=== PATIENT | female | born 1940 | race Caucasian/White ===

== ENCOUNTER 2023-03-28 11:19 | Outpatient (OUT) | payer OTHER, SELFPAY ==
[2023-03-28 12:59] LABS: Anion Gap 7.5; BUN Creatinine Ratio 18.9; Calcium 9.2 mg/dL (8.5-10.1); Chloride 101 mmol/L (98-107); Estimated GFR (African America 41 (>=60); Estimated GFR (Non-African Ame 34 (>=60); Glucose 196 mg/dL (74-106); Potassium 4.5 mmol/L (3.5-5.1); Sodium 135 mmol/L (136-145)
== END 2023-03-28 11:20 | disposition home or self-care (01) ==
LOC: LAB 11:26
PROVIDERS: PCP Internal Medicine; Visit Provider Internal Medicine
DX: N17.9 Acute kidney failure, unspecified (principal)
CPT/HCPCS: 36415; 80048

== ENCOUNTER 2023-10-29 12:52 | Outpatient (OUT) | payer OTHER, SELFPAY ==
--- NOTE | 2023-10-29 | ECG_ITS ---
[facility] [place] Test Date: 2023-10-29 Pat Name: KRISTA LY Department: Room: - Gender: Female [employer] Supervisor: : 1940 Requested By: SHAIKH MADISON Order Number: [id number] Reading MD: JIHAN GENTILE Measurements Intervals [place] Rate: 84 P: 67 WV: 165 QRS: -46 QRSD: 106 T: 40 QT: 387 QTc: 457 Interpretive Statements SINUS RHYTHM MARKED LEFT AXIS DEVIATION [QRS AXIS < -30] PATTERN CONSISTENT WITH PULMONARY DISEASE Compared to ECG 05/30/2019 13:35:58 Left-axis deviation now present Myocardial infarct finding no longer present Electronically Signed On 10-29-2023 18:47:17 EDT by JIHAN GENTILE
== END 2023-10-29 12:53 | disposition home or self-care (01) ==
LOC: CARD 12:53
PROVIDERS: PCP Internal Medicine; Visit Provider Internal Medicine
DX: I49.9 Cardiac arrhythmia, unspecified (principal); I48.0 Paroxysmal atrial fibrillation
CPT/HCPCS: 93005; 93242

== ENCOUNTER 2023-12-06 09:00 | Outpatient (OUT) | payer OTHER, SELFPAY ==
--- NOTE | 2023-12-06 09:05 | CA_ITS ---
Patient Name: KRISTA LY MR#: [id number] : 1940 Exam Date: 12/06/2023 Ordering Doctor: DR PAUL MARTINEZ M.D. ECHOCARDIOGRAM REPORT PROCEDURE: CA ECHO DOPPLER COMPLETE INDICATIONS: Abnormal EKG COMPARISON: None. DESCRIPTION: COMPLETE ECHOCARDIOGRAM Real-time transthoracic echocardiography with 2D, M-mode, spectral and color flow Doppler performed. QUALITY: Technical quality was good. LEFT VENTRICLE: Normal chamber size. Mild concentric left ventricular hypertrophy. LV EF: Global left ventricular systolic function is normal; visually estimated ejection fraction is 55 to 60%. No obvious wall motion abnormalities. DIASTOLIC: Grade 2, moderate diastolic dysfunction. ATRIAL SEPTUM: Inadequately seen. LEFT ATRIUM: Severe dilatation. RIGHT ATRIUM: Moderate dilatation. RIGHT VENTRICLE: Normal chamber size. Normal right ventricular systolic function. TRICUSPID VALVE: Normal mobility and thickness. No stenosis with moderate regurgitation. Moderate pulmonary hypertension. RVSP 59mmHg MITRAL VALVE: Mildly thickened with normal mobility. No evidence of mitral valve stenosis. There is no mitral annular calcification. Trivial mitral regurgitation. AORTIC VALVE: Normal trileaflet appearance. Thickened aortic valve. Normal leaflet mobility. No evidence of aortic valve stenosis. Trivial aortic regurgitation. AORTIC ROOT: Normal diameter and appearance. PULMONIC VALVE: Normal thickness and mobility. No stenosis. Trivial regurgitation. PERICARDIUM: No evidence of pericardial effusion. IVC: Collapses with inspirations. Mild dilatation measuring 2.4cm. PLEURA: CONCLUSION: 1. Global left ventricular systolic function is normal; visually estimated ejection fraction is 55 to 60% 2. Normal right ventricular size and systolic function 3. Mildly increased left ventricular wall thickness 4. Biatrial enlargement 5. Grade 2, moderate diastolic dysfunction 6. Moderate tricuspid regurgitation 7. Moderately elevated right ventricular systolic pressure; RVSP 59 mmHg Adult Echocardiography Procedure Report Left Ventricle LVEDD (3.7 - 5.6 cm): 5.05 cm LVESD (2.2 - 4.0 cm): 3.75 cm LVIVS thickness (0.6 - 1.2 cm): 1.21 cm LVPW thickness (0.5 - 1.0 cm): 1.16 cm e': 0.08 m/s E - e': 7.83 LVOT Max Gradient: 2.25 mm[Hg] LVOT Area (cm2): 0.75 m/s Peak Velocity (LVOT): 0.75 m/s Mean Velocity (LVOT): 0.56 m/s LVOT Diameter 2.07 cm Left Ventricular Ejection Fraction: 50.24 % Left Atrium LA Volume Index (2D A2C): 61.01 ml/m2 Left Atrium Systolic Dimension: 4.33 cm Mitral Valve MV E to A Ratio: 1.06 Mitral Valve A-Wave Peak Velocity: 0.57 m/s Mitral Valve E-Wave Peak Velocity: 0.60 m/s Right Ventricle RV Internal Diastolic Dimension: 3.26 cm Aorta AO Root Diam: 3.44 cm Ascending Ao Diam: 3.25 cm Aortic Valve AoV Area (Peak Giuseppe): 1.84 cm2, 1.84 cm2 AoV Area (VTI): 1.70 cm2, 1.70 cm2 Peak Velocity(Antegrade Flow): 1.37 m/s Peak Gradient(Antegrade Flow): 7.48 mm[Hg] Mean Velocity(Antegrade Flow): 0.99 m/s Mean Gradient(Antegrade Flow): 4.36 mm[Hg] Velocity Time Integral: 35.99 cm Tricuspid Valve Peak Velocity (Regurgitant Flow): 2.75 m/s, 3.40 m/s, 3.56 m/s Pulmonic Valve Mean Gradient: 1.99 mm[Hg], 2.44 mm[Hg] Mean Velocity: 0.66 m/s, 0.72 m/s Peak Velocity: 1.05 m/s Peak Gradient: 3.80 mm[Hg], 5.09 mm[Hg] Right Atrium Right Atrium Systolic Pressure: 48.78 ml, 48.78 ml Dictated by: Paul Martinez M.D. on 12/06/2023 at 11:09 Approved by: Paul Martinez M.D. on 12/06/2023 at 11:13
== END 2023-12-06 09:01 | disposition home or self-care (01) ==
LOC: CARD 09:01
PROVIDERS: PCP Internal Medicine; Visit Provider Internal Medicine Interventional Cardiology
DX: I47.29 Other ventricular tachycardia (principal); I07.1 Rheumatic tricuspid insufficiency
CPT/HCPCS: 93306

== ENCOUNTER 2023-12-07 07:05 | Outpatient (OUT) | payer OTHER, SELFPAY ==
--- NOTE | 2023-12-07 | PCN_ITS ---
CARDIAC STRESS TEST Requesting Physician: Paul Martinez M.D. Procedure Date: 12/07/2023 INDICATION FOR THE TEST: Ventricular tachycardia/PVCs. Patient presented for the stress test and, at baseline, was noted to have a heart rate of 63 beats per minute and a blood pressure of 110/66 mm/Hg. During the testing, patient could not use treadmill. A medical stress test was performed and Lexiscan was administered. On this, a maximum heart rate of 88 beats per minute was achieved and a blood pressure of 112/58 mm/Hg. At baseline, patient had sinus rhythm and, with infusion, there was no evidence of ischemia noted on EKG; however, PVCs were noted. Post infusion, no evidence of AV block seen and no other arrhythmias were noted. IMPRESSION: 1. No evidence of ischemia noted on EKG with Lexiscan study. 2. Occasional PVCs noted. 3. Perfusion part of the imaging study to be dictated by radiologist separately. JANEL
--- NOTE | 2023-12-07 07:05 | NM_ITS ---
Patient Name: KRISTA LY MR#: [id number] : 1940 Exam Date: 12/07/2023 Ordering Doctor: DR Paul Martinez M.D. RADIOLOGY REPORT PROCEDURE: NM TIBURCIO PERF SPECT REST STR COMPARISON: None. INDICATIONS: ABNORMAL EKG TECHNIQUE: Exam Description: Stress/Rest one day protocol gated SPECT Rest Imagin.2 mCi Tc-99m Cardiolite IV on 12/07/2023 Stress Imaging 30.8 mCi Tc-99m Cardiolite IV on 12/07/2023 Exercise Protocol: 0.4 mg Lexiscan given IV Heart Rate (bpm): Rest: 63 Max: 88 PMHR: 63 Blood Pressure: Rest: 110/66 Max: 112/58 Symptoms: Rest and peak stress ECG findings were pending and the exercise portion of the study was pending per attending physician Dr. DALE . For more details please see separate cardiac stress test report. FINDINGS: QUALITY OF STUDY: PERFUSION DEFECT: LOCATION: Apical anterior. Apical lateral. [place]. SIZE: Medium (3-4 segments). SEVERITY: Moderate. TYPE: Persistent. WALL MOTION: Normal. LV SIZE: Normal. 101 mL. TID / TCD: None; 1.0 LVEF: Normal. Calculated EF 66%. SUMMARY: Myocardial perfusion imaging study has ABNORMAL findings. CONCLUSION: 1. Fixed defect in the apex 2. No reversible ischemia 3. Pending exercise test results Dictated by: Darien Naqvi MD on 12/07/2023 at 12:03 Approved by: Darien Naqvi MD on 12/07/2023 at 12:05
[2023-12-07] MEDS: REGADENOSON 0.4 MG/5 ML SYRINGE IV (08:59)
--- NOTE | 2023-12-07 09:00 | PC.NURSE ---
Nursing Note Cardiac Stress Test Reviewed: Medication, allergies and patient history reviewed. Stress Test: [ x] Patient tolerated stress test well. [x ] Patient unable to tolerate walking on treadmill. Switched to Lexiscan stress test. [x ] No chest pain noted per patient [ ] Chest pain that resolved prior to leaving stress lab. [ ] No dyspnea noted. [x ] Dyspnea that resolved prior to leaving stress lab. [x ] Patient left stress lab asymptomatic and hemodynamically stable. [ ] Patient taken to the Emergency Room due to non-resolving symptoms following stress test. [ ] Patient achieved target heart rate. [x ] Patient unable to achieve target heart rate. [ ] Aminophylline administered as reversal agent to Lexiscan (Regadenoson). [ ] Nitro administered. Nursing Comments: Patient states she has home o2 ordered. Patient is ordered 2 LPM but is using 3LPM on a regular basis especially with exertion. She is short of breath after the administration of the Lexiscan but is back to her baseline prior to leaving the room. She was transported to the cafeteria for breakfast following the test.
== END 2023-12-07 07:06 | disposition home or self-care (01) ==
LOC: NM 07:05
PROVIDERS: PCP Internal Medicine; Visit Provider Internal Medicine Interventional Cardiology
DX: I47.29 Other ventricular tachycardia (principal); R94.31 Abnormal electrocardiogram [ECG] [EKG]
CPT/HCPCS: 78452; 93017; A9500; J2785

== ENCOUNTER 2024-01-15 09:45 | Outpatient (OUT) | payer OTHER, SELFPAY ==
--- OUTSIDE RECORDS SUMMARY | 2024-01-15 10:04 | XMS_ITS | CCD ---
Author Organization [facility] Care Team Providers Care Director Of Financial Planning Name Role Phone ELTAHAWY, EHAB A Admitting Unavailable ELTAHAWY, EHAB A Attending Unavailable REBECCA HIRSCH Referring Unavailable REBECCA HIRSCH Primary Care Unavailable FAWWAD, MARTINEZ H Attending Unavailable FAWWAD, MARTINEZ H Primary Care Unavailable FAWWAD, MARTINEZ H Consulting Unavailable FAWWAD, MARTINEZ H Admitting Unavailable FAWWAD, MARTINEZ H Attending Unavailable FAWWAD, MARTINEZ H Primary Care Unavailable FAWWAD, MARTINEZ H Consulting Unavailable FAWWAD, MARTINEZ H Admitting Unavailable FAWWAD, MARTINEZ H Primary Care Unavailable DR ALDO ALBRIGHT Consulting Unavailable FAWWAD, MARTINEZ H Attending Unavailable FAWWAD, MARTINEZ H Admitting Unavailable FAWWAD, MARTINEZ H Consulting Unavailable FAWWAD, MARTINEZ H Attending Unavailable FAWWAD, MARTINEZ H Admitting Unavailable DR DENICE NAQVI V Consulting Unavailable FAWWAD, MARTINEZ H Primary Care Unavailable FAWWAD, MARTINEZ H Consulting Unavailable FAWWAD, MARTINEZ H Primary Care Unavailable FAWWAD, MARTINEZ H Consulting Unavailable FAWWAD, MARTINEZ H Attending Unavailable FAWWAD, MARTINEZ H Admitting Unavailable FAWWAD, MARTINEZ H Admitting Unavailable FAWWAD, MARTINEZ H Attending Unavailable DR ALDO ALBRIGHT Consulting Unavailable DR REBECCA HIRSCH Primary Care Unavailable FAWWAD, MARTINEZ H Consulting Unavailable FAWWAD, MARTINEZ H Admitting Unavailable FAWWAD, MARTINEZ H Attending Unavailable DR ALDO ALBRIGHT Consulting Unavailable DR REBECCA HIRSCH Primary Care Unavailable FAWWAD, MARTINEZ H Consulting Unavailable FAWWAD, MARTINEZ H Primary Care Unavailable WEST, DR DENICE Campoverde Attending Unavailable WEST, DR DENICE Campoverde Admitting Unavailable FAWWAD, MARTINEZ H Primary Care Unavailable FAWWAD, MARTINEZ H Attending Unavailable FAWWAD, MARTINEZ H Admitting Unavailable WEST, DR DENICE Campoverde Consulting Unavailable FAWWAD, MARTINEZ H Consulting Unavailable FAWWAD, MARTINEZ H Attending Unavailable FAWWAD, MARTINEZ H Admitting Unavailable HIRSCH, DR REBECCA Vo Primary Care Unavailable GEORGIANA DE LA CRUZ Consulting Unavailable FAWWAD, MARTINEZ H Consulting Unavailable FAWWAD, MARTINEZ H Attending Unavailable FAWWAD, MARTINEZ H Admitting Unavailable WEST, DR DENICE Campoverde Consulting Unavailable HIRSCH, DR REBECCA Vo Primary Care Unavailable FAWWAD, MARTINEZ H Consulting Unavailable FAWWAD, MARTINEZ H Attending Unavailable FAWWAD, MARTINEZ H Primary Care Unavailable FAWWAD, MARTINEZ H Admitting Unavailable WEST, DR DENICE Campoverde Consulting Unavailable FAWWAD, MARTINEZ H Consulting Unavailable [place] , [facility] Primary Care Provider Isela ACOSTA [facility] Primary Care Provider Isela ACOSTA [facility] Unavailable BLANCA ROSALES Attending Unavailable [facility], [facility] Referring [facility]available [facility] Primary Care Unavailable KATEY, BO L Attending Unavailable [facility], [facility] Referring Unavailable [facility], [facility] Primary Care Unavailable ANTONIOLLI, BO L Admitting Unavailable ANTONIOLLI, BO L Attending Unavailable [facility] Primary Care Unavailable ANTONIOLLI, BO L Referring Unavailable [facility] Primary Care Unavailable JOHNNA COLLINS Attending Unavailable PAUL MARTINEZ Attending Unavailable DO Susanne Cannon Emergency Provider [phone] MD Isela [facility] Primary Care Provider DO Jose Eduardo Cifuentes Admit Provider [phone] DO Jose Eduardo Cifuentes Attending Provider KILO HINES Referring Unavailable FAWWAD, [facility] Primary Care Unavailable [facility] Referring Unavailable [facility] Primary Care [facility] Referring [facility] Primary Care [facility]available [facility] Referring [facility]available [facility] Primary Care Unavailable [facility] Referring Unavailable [facility] Primary Care Unavailable ALFA GUNTER Attending Unavailable REBECCA HIRSCH Referring Unavailable [facility] Primary Care Unavailable [facility] Primary Care Unavailable ANTHONYADA BERNAL H Attending Unavailable ANTHONYADA H Attending Unavailable ANTHONY, ADA H Referring Unavailable [facility], [facility] Primary Care Unavailable ANTHONYADA BERNAL H Attending Unavailable ANTHONY, ADA H Referring Unavailable [facility] Primary Care Unavailable [facility] Primary Care Unavailable YON FLOOD Attending Unavailable JOEL, DEVORAH Attending Unavailable DEVORAH MALDONADO Referring Unavailable [facility] Primary Care Unavailable [facility] Primary Care Unavailable JOSE EDUARDO HARMAN Attending Unavaila DANIE Levin Admitting Unavailable JOSE EDUARDO HARMAN Attending Unavaila JOSE EDUARDO Lopez Referring [facility]availa ble [facility] Care Unavailable JOSE EDUARDO HARMAN Attending Unavaila JOSE EDUARDO Lopez Referring Unavaila ble [facility] Primary Care Unavailable BO RINCON Referring Unavailable [facility], [facility] Primary Care Unavailable KILO HINES Attending Unavailable [facility], [facility] Referring Unavailable [facility] Primary Care Unavailable KILO HINES Referring Unavailable ALFA GUNTER Attending Unavailable ALFA GUNTER Referring Unavailable NO PCP, NO PCP Primary Care Unavailable [facility] Referring Unavailable [facility] Primary Care [facility]available [facility] Referring Unavailable [facility] Primary Care Unavailable [facility] Primary Care Unavailable ADA GALLAGHER Attending Unavailable STEVEN PEMBERTON Admitting Unavailable ADA GALLAGHER Attending Unavailable ADA GALLAGHER Referring Unavailable [facility] Primary Care Unavailable MAURO PALMER Attending Unavailable MAURO PALMER Referring Unavailable FAWWAD, MARTINEZ Primary Care Unavailable FAWWAD, MARTINEZ Referring Unavailable FAWWAD, MARTINEZ Primary Care Unavailable FAWWAD, MARTINEZ Primary Care Unavailable ROBERT LYN Attending Unavailable ERWIN RING Attending UnavailERWIN Galdamez Referring Unavailabl e FAWWAD, MARTINEZ Primary Care Unavailable FAWWAD, MARTINEZ Referring Unavailable FAWWAD, MARTINEZ Primary Care Unavailable KILO HINES Attending Unavailable FAWWAD, MARTINEZ Referring Unavailable FAWWAD, MARTINEZ Primary Care Unavailable KILO HINES Referring Unavailable FAWWAD, MARTINEZ Primary Care Unavailable Trent Duarte Attending Unavailabl e [place], Martinez Primary Care Unavailable Jose Eduardo Cifuentes Admitting Unavailable Monroe Selby Consulting Unavaila ble ISELA, MARTINEZ Attending Unavailable FAWWAD, MARTINEZ Attending Unavailable FAWWAD, MARTINEZ Attending Unavailable FAWWAD, MARTINEZ Attending Unavailable FAWWAD, MARTINEZ Attending Unavailable FAWWAD, MARTINEZ Attending Unavailable FAWWAD, MARTINEZ Attending Unavailable FAWWAD, MARTINEZ Attending Unavailable MONROE BURGOS Attending Unavailable KILO HINES Referring Unavailable FAWWAD, MARTINEZ Attending Unavailable JYOTI JOHNSON Attending UnavailJYOTI Knox Attending Unavailabl e FAWWAD, MARTINEZ Attending Unavailable Allergies Allergy Classification Reported Allergen(s) Allergy Type Date of Onset Reaction(s) Facility (6 sources) Amino Acids; Translations: [LISINOPRIL] Drug Allergy 0 [facility] (11 sources) Lisinopril Drug Allergy 2 [facility] (5 sources) Lisinopril Propensity to adverse reactions 3 [facility] (1 source) Lisinopril Drug Allergy 4 [facility] Medications Current Medications Medication Drug Class(es) Dates Sig (Normalized) Sig (Original) [id number] 200 actuat albuterol 0.09 mg/actuat metered dose inhaler (1 source) beta2-Adrenergic Agonist Start: 12-26-2023 Albuterol Sulfate Active INHALATION December 26, 2023 12:00am doesnt use on a regular basis alogliptin 12.5 mg oral tablet (5 sources) take 1 tablet by mouth in the morning alogliptin (Nesina) 12.5 MG tablet Take 12.5 mg by mouth in the morning. 0 Active alogliptin 12.5 mg / metFORMIN hydrochloride 1000 mg oral tablet (11 sources) Biguanide take 1 tablet by mouth once daily alogliptin-metFO RMIN 12.5-1,000 mg tablet Take 12.5 mg by mouth daily. 0 Active aspirin 81 mg delayed release oral tablet (17 sources) Platelet Aggregation Inhibitor, Nonsteroidal Anti-inflammatory Drug Start: 12-26-2023 Aspirin (Adult Low Dose Aspirin) 81 mg tablet,delayed release (DR/EC) Active 81 MG PO Daily December 26, 2023 12:00am take 1 tablet by mouth in the mo rning aspirin 81 mg Take 1 tablet (81 mg total) by mouth in the morning. 0 Active atorvastatin 40 mg oral tablet (17 sources) HMG-CoA Reductase Inhibitor Start: 12-26-2023 take 40 mg by mouth once daily Atorvastatin Active 40 MG PO Daily December 26, 2023 12:00am take 1 tablet by mouth in the mo rning atorvastatin (LIPITOR) 80 mg tablet Take 1 tablet (80 mg total) by mouth in the morning. 0 Active take 1 tablet by mouth in the mo rning atorvastatin (Lipitor) 40 MG tablet Take 40 mg by mouth in the morning. 0 Active carvedilol 6.25 mg oral tablet (19 sources) alpha-Adrenergic Terry, beta-Adrenergic Terry Start: 07-04-2023 End: 10-07-2023 take 1 tablet by mouth in the morning carvedilol (Coreg) 6.25 MG tablet Indications: Benign essential HTN (CMS/HCC) Take 1 tablet (6.25 mg) by mouth in the morning and 1 tablet (6.25 mg) in the evening. Take with meals. 180 tablet 0 07/09/2023 10/07/2023 Active Start: 05-10-2023 End: 11-06-2023 take 1 tablet by mouth in the morning carvedilol (Coreg) 12.5 MG tablet Indications: Benign essential HTN (CMS/HCC) Take 1 tablet (12.5 mg) by mouth in the morning and 1 tablet (12.5 mg) in the evening. Take with meals. 180 tablet 1 05/10/2023 07/04/2023 Discontinued take 4 tablets by mo uth in the morning, then take 4 tablets by mouth at bedtime carvedilol (COREG) 3.125 mg tablet Take 4 tablets (12.5 mg total) by mouth in the morning and 4 tablets (12.5 mg total) before bedtime. 0 Active Fluad Quadrivalent syringe (5 sources) Start: 02-20-2023 Fluad Quadriva lent syringe Inject 0.5 mL into the shoulder, thigh, or buttocks 1 (one) time 0 02/20/2023 Active furosemide 40 mg oral tablet (20 sources) Loop Diuretic Start: 12-26-2023 take 1 tablet by mouth once daily Furosemide (Lasix) 40 mg tablet Active 40 MG PO Daily December 26, 2023 12:00am Start: 07-04-2023 End: 10-07-2023 take 1 tablet by mouth in the morning furosemide (Lasix) 20 MG tablet Indications: Stage 3a chronic kidney disease (HCC) (CMS/HCC) Take 1 tablet (20 mg) by mouth in the morning. 90 tablet 0 07/09/2023 10/07/2023 Active Start: 05-29-2023 End: 07-04-2023 take 1 tablet by mouth once daily as needed for edema furosemide (Lasix) 40 MG tablet Indications: Stage 3a chronic kidney disease (HCC) (CMS/HCC) TAKE 1 (ONE) TABLET BY MOUTH DAILY NEEDED FOR LEG EDEMA 90 tablet 0 05/29/2023 07/04/2023 Discontinued Start: 05-30-2022 take 0.5 tablet by m outh once daily furosemide (LASIX) 40 mg tablet Take 0.5 tablets (20 mg total) by mouth daily. 0 05/30/2022 Active glipiZIDE er 5 mg 24 hr extended release oral tablet (1 source) Sulfonylurea Start: 12-26-2023 take 5 mg by mouth once daily Glipizide Active 5 MG PO Daily December 26, 2023 12:00am hydroCHLOROthiazide 25 mg oral tablet (14 sources) Thiazide Diuretic Start: 05-28-2023 End: 07-04-2023 take 1 tablet by mouth once daily hydroCHLOROthiazide (HYDRODiuril) 25 MG tablet Indications: Essential (primary) hypertension (CMS/HCC) , Benign essential hypertension (CMS/HCC) TAKE 1 TABLET BY MOUTH EVERY DAY 90 tablet 0 05/28/2023 07/04/2023 Discontinued (Therapy completed) insulin glargine 100 unt/ml injectable solution (16 sources) Insulin Analog Start: 08-08-2021 inject 0.35 mL by subcutaneous injection in the morning insulin glargine (LANTUS) 100 unit/mL injection Inject 0.35 mL (35 Units total) under the skin in the morning. 0 08/08/2021 Active inject 35 [IU] by jenkins bcutaneous injection once daily insulin glargine (Lantus) 100 UNIT/ML injection Inject 35 Units under the skin 1 (one) time each day 0 Active inject 45 [IU] by jenkins bcutaneous injection once daily insulin glargine (Lantus) 100 UNIT/ML injection Inject 45 Units under the skin 1 (one) time each day 0 Active letrozole 2.5 mg oral tablet (18 sources) Aromatase Inhibitor Start: 12-26-2023 take 2.5 mg by mouth once daily Letrozole Active 2.5 MG PO Daily at 629December 26, 2023 12:00am Start: 08-01-2022 End: 07-27-2023 take 1 tablet by mouth once daily letrozole (FEMARA) 2.5 mg chemo tablet TAKE 1 TABLET BY MOUTH EVERY DAY 90 tablet 3 07/22/2023 Active levothyroxine sodium 0.075 mg oral tablet (17 sources) l-Thyroxine Start: 12-26-2023 take 75 ug by mouth once daily Levothyroxine Active 75 MCG PO Daily at 629December 26, 2023 12:00am take 1 tablet by mouth in the mo rning levothyroxine (SYNTHROID, LEVOTHROID) 50 MCG tablet Take 1 tablet (50 mcg total) by mouth in the morning. 0 Active losartan potassium 25 mg oral tablet (16 sources) Angiotensin 2 Receptor Terry take 1 tablet by mouth every twenty-four hours losartan (COZAAR) 25 mg tablet Take 1 tablet (25 mg total) by mouth daily. 0 Active metFORMIN hydrochloride 1000 mg oral tablet (17 sources) Biguanide Start: 12-26-19 take 1000 mg by mouth twice daily Metformin Active 1000 MG PO Twice daily December 26, 2023 12:00am take 0.5 tablet by m outh in the morning, then take 0.5 tablet by mouth at mealtime metFORMIN (GLUCOPHAGE) 1000 mg tablet Ta ke 0.5 tablets (500 mg total) by mouth in the morning and 0.5 tablets (500 mg total) in the evening. Take with meals. 0 Active metFORMIN (Gluco phage) 1000 MG tablet Take 500 mg by mouth in the morning and 500 mg in the evening. Take with meals. 0 Active take 1 tablet by oneyda th in the morning, then take 1 tablet by mouth at mealtime metFORMIN (GLUCOPHAGE) 1000 mg tablet Take 1 tablet (1,000 mg total) by mouth in the morning and 1 tablet (1,000 mg total) in the evening. Take with meals. 0 Active 24 hr metoprolol succinate 25 mg extended release oral tablet (1 source) beta-Adrenergic Terry Start: 12-26-2023 take 12.5 mg by mouth once daily Metoprolol Succinate Active 12.5 MG PO Daily December 26, 2023 12:00am nitroglycerin 0.4 mg sublingual tablet (5 sources) Nitrate Vasodilator Start: 02-13-2023 nitroglycerin (Nitrostat) 0.[address] 0.4 mg under the tongue every 5 (five) minutes if needed for chest pain 0 02/13/2023 Active pregabalin 150 mg oral capsule (19 sources) Start: 12-26-2023 take 150 mg by mouth twice daily Pregabalin Active 150 MG PO Twice daily December 26, 2023 12:00am Start: 06-04-2023 End: 10-02-2023 take 1 capsule by mouth in the morning pregabalin (Lyrica) 150 MG capsule Indications: Type 2 diabetes mellitus with diabetic neuropathy, unspecified (CMS/HCC) , Type 2 diabetes mellitus with diabetic polyneuropathy, with long-term current use of insulin (CMS/HCC) Take 1 capsule (150 mg) by mouth in the morning and 1 capsule (150 mg) before bedtime. 180 capsule 0 07/04/2023 10/02/2023 Active take 2 capsules by m outh in the morning, then take 2 capsules by mouth at bedtime pregabalin (LYRICA) 75 mg capsule Take 2 capsules (150 mg total) by mouth in the morning and 2 capsules (150 mg total) before bedtime. 0 Active rOPINIRole 5 mg oral tablet (17 sources) Nonergot Dopamine Agonist Start: 12-26-2023 take 5 mg by mouth three times daily Ropinirole Active 5 MG PO Three times daily December 26, 2023 12:00am Start: 06-21-2023 End: 09-19-2023 take 1 tablet by mouth in the morning, then take 1 tablet by mouth in the evening, then take 1 tablet by mouth at bedtime rOPINIRole (Requip) 5 MG tablet Indications: Restless Leg Syndrome Take 1 tablet (5 mg) by mouth in the morning and 1 tablet (5 mg) in the evening and 1 tablet (5 mg) before bedtime. 270 tablet 0 06/21/2023 09/19/2023 Active take 5 mg by mouth t hree times daily rOPINIRole (REQUIP) 3 mg tablet Take 5 mg by mouth 3 (three) times a day. 0 Active Vitamin B Complex (1 source) Start: 12-26-2023 take 1 capsule by mouth once daily Vitamin B Complex Active CAP PO Daily December 26, 2023 12:00am vitamin b6 50 mg oral tablet (1 source) Start: 08-14-2022 take 1 tablet by mouth in the morning pyridoxine, vitamin B6, (B-6) 50 mg tablet Indications: Peripheral polyneuropathy , Vitamin B6 deficiency Take 1 tablet (50 mg total) by mouth in the morning. 60 tablet 0 08/14/2022 Active Completed/Discontinued Medications Medication Drug Class(es) Dates Sig (Normalized) Sig (Original) acetaminophen 325 mg / HYDROcodone bitartrate 5 mg oral tablet (1 source) Opioid Agonist Start: 04-11-2019 End: 12-26-2023 take 1 tablet by mouth every four to six hours Hydrocodone-Aceta minophen ([place]) 5-325 mg Tablet Discontinued 1 TAB PO EVERY 4-6 HOURS 7 3 April 11, 2019 1:00am December 26, 2023 1:00pm heparin (1 source) Unfractionated Heparin, Anti-coagulant Start: 08-08-2023 End: 08-08-2023 heparin, porcine (PF) syringe 500 Units 125 ml sodium chloride 9 mg/ml prefilled syringe (1 source) Start: 08-08-2023 End: 08-08-2023 sodium chloride 0.9 % flush 20 mL Problems Active Problems Problem Classification Problem Date Documented Da te Episodic/Chronic Cancer of breast (20 sources) Malignant neoplasm of unspecified site of unspecified female breast; Translations: [Malignant neoplasm of upper-inner quadrant of right female breast] Onset: 1 Chronic Cardiac dysrhythmias (3 sources) Ventricular bigeminy; Translations: [Other specified cardiac arrhythmias] Onset: 4 12-26-2023 Chronic Chronic kidney disease (19 sources) Chronic kidney disease stage 3A ; Translations: [Stage 3a chronic kidney disease] Onset: 3 07-18-2022 Chronic Chronic obstructive pulmonary disease and bronchiectasis (1 source) Chronic obstructive pulmonary disease, unspecified; Translations: [Chronic obstructive pulmonary disease, unspecified] Onset: 4 Chronic Congestive heart failure; nonhypertensive (10 sources) Chronic diastolic heart failure; Translations: [Chronic diastolic (congestive) heart failure] Onset: 4 07-04-2023 Chronic Coronary atherosclerosis and other heart disease (13 sources) Coronary arteriosclerosis; Translations: [Atherosclerotic heart disease of [place] coronary artery without angina pectoris] Onset: 2 05-10-2023 Chronic Diabetes mellitus with complications (17 sources) Type 2 diabetes mellitus; Translations: [Type 2 diabetes mellitus with diabetic polyneuropathy] Onset: 3 05-10-2023 Chronic Diabetes mellitus without complication (16 sources) Type 2 diabetes mellitus without complications; Translations: [Diabetes mellitus] Onset: 0 Chronic Disorders of lipid metabolism (18 sources) Mixed hyperlipidemia; Translations: [Mixed hyperlipidemia] Onset: 0 03-21-2023 Chronic Essential hypertension (20 sources) Essential (primary) hypertension; Translations: [Benign essential hypertension] Onset: 2 Resolved: 3 Chronic Fluid and electrolyte disorders (1 source) Hypovolemia; Translations: [Hypovolemia] Onset: 4 Episodic Malaise and fatigue (12 sources) Asthenia; Translations: [Weakness] Onset: 3 03-21-2023 Episodic Mycoses (4 sources) Onychomycosis; Translations: [Tinea unguium] Onset: 4 07-04-2023 Episodic Nonspecific chest pain (2 sources) Chest pain, unspecified; Translations: [Chest pain] Onset: 4 Episodic Nutritional deficiencies (20 sources) Vitamin B6 deficiency; Translations: [Pyridoxine deficiency] Onset: 3 08-14-2022 Episodic Other aftercare (1 source) longterm (current) use of insulin; Translations: [long term (current) use of insulin] Onset: 4 Episodic Other aftercare (1 source) Other penitentiary (current) drug therapy; Translations: [Other termination clerk (current) drug therapy] Onset: 4 Episodic Other circulatory disease (1 source) Presence of other vascular implants and grafts; Translations: [Presence of other vascular implants and grafts] Onset: 4 Chronic Other circulatory disease (1 source) Low blood pressure Onset: 4 Episodic Other connective tissue disease (1 source) Myofascial pain; Translations: [Myalgia, other site] 08-03-2023 Episodic Other hereditary and degenerative nervous system conditions (5 sources) Restless legs; Translations: [Restless legs syndrome] Onset: 3 05-10-2023 Chronic Other hereditary and degenerative nervous system conditions (1 source) Isolated cervical dystonia; Translations: [Spasmodic torticollis] 08-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 Other hereditary and degenerative nervous system conditions (1 source) Torsion dystonia; 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-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 Other hereditary and degenerative nervous system conditions (1 source) Essential tremor; Translations: [Essential tremor] 08-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 Other lower respiratory disease (5 sources) Dyspnea; Translations: [Shortness of breath] Onset: 4 06-21-2023 Episodic Other lower respiratory disease (10 sources) Hypoxia; Translations: [Hypoxemia] Onset: 4 06-21-2023 Episodic Other lower respiratory disease (1 source) Other nonspecific abnormal finding of lung field; Translations: [Other nonspecific abnormal finding of lung field] Onset: 4 Episodic Other lower respiratory disease (1 source) Wheezing; Translations: [Wheezing] Onset: 4 Episodic Other lower respiratory disease (1 source) Shortness of breath; Translations: [Shortness of breath] Onset: 4 Episodic Other lower respiratory disease (1 source) Shortness of breath Onset: 4 Episodic Other nervous system disorders (1 source) Ulnar neuropathy; Translations: [Lesion of ulnar nerve, right upper limb] 07-06-2023 Chronic Other nervous system disorders (1 source) Lesion of ulnar nerve, right upper limb; Translations: [Lesion of ulnar nerve, right upper limb] Onset: 4 Chronic Other nervous system disorders (1 source) Paresthesia of skin; Translations: [Paresthesia of skin] Onset: 4 Episodic Other nutritional; endocrine; and metabolic disorders (15 sources) Body mass index 30+ - obesity; Translations: [Obesity, unspecified] Onset: 3 07-18-2022 Chronic Other nutritional; endocrine; and metabolic disorders (5 sources) Morbid obesity; Translations: [Morbid (severe) obesity due to excess calories] Onset: 3 05-10-2023 Chronic Other screening for suspected conditions (not mental disorders or infectious disease) (1 source) Encounter for screening mammogram for malignant neoplasm of breast; Translations: [Encounter for screening mammogram for malignant neoplasm of breast] Onset: 4 Episodic Phlebitis; thrombophlebitis and thromboembolism (4 sources) Phlebitis and thrombophlebitis of superficial vessels of unspecified lower extremity; Translations: [PHLEBITIS AND TP SUP VES UNS LOW EXT] Onset: 2 Episodic Pleurisy; pneumothorax; pulmonary collapse (2 sources) Pleural effusion, not elsewhere classified; Translations: [Pleural effusion, not elsewhere classified] Onset: 4 Episodic Pulmonary heart disease (1 source) Pulmonary hypertension, unspecified; Translations: [Pulmonary hypertension, unspecified] Onset: 4 Chronic Residual codes; unclassified (4 sources) Localized edema; Translations: [LOCALIZED EDEMA] Onset: 2 Episodic Residual codes; unclassified (4 sources) History of colonoscopy; Translations: [Other specified postprocedural states] Onset: 4 07-04-2023 Episodic Residual codes; unclassified (3 sources) Estrogen receptor positive status [ER+]; Translations: [Estrogen receptor positive status (ER+)] Onset: 3 Episodic Residual codes; unclassified (1 source) Acquired absence of right breast and nipple; Translations: [Acquired absence of right breast and nipple] Onset: 4 Episodic Respiratory failure; insufficiency; arrest (adult) (3 sources) [id number] respiratory failure; Translations: [Acute and chronic respiratory failure with hypoxia] Onset: 4 12-26-2023 Chronic Secondary malignancies (16 sources) Secondary malignant neoplasm of axillary lymph nodes; Translations: [Secondary and unspecified malignant neoplasm of axilla and upper limb lymph nodes] Onset: 2 04-05-2023 Chronic Secondary malignancies (3 sources) Secondary and unspecified malignant neoplasm of axilla and upper limb lymph nodes; Translations: [Secondary and unspecified malignant neoplasm of axilla and upper limb lymph nodes] Onset: 3 Chronic Spondylosis; intervertebral disc disorders; other back problems (1 source) Spondylosis without myelopathy or radiculopathy, thoracic region; Translations: [SPONDYLS W/O MYELO-/RADICULOP THOR] Onset: 2 Chronic Sprains and strains (1 source) Strain of knee; Translations: [Strain of unspecified muscle(s) and tendon(s) at lower leg level, unspecified leg, initial encounter] 05-09-2023 Episodic Substance-related disorders (13 sources) Tobacco dependence caused by cigarettes; Translations: [Nicotine dependence, cigarettes, uncomplicated] Onset: 3 03-21-2023 Chronic Superficial injury; contusion (2 sources) Contusion of knee; Translations: [Contusion of unspecified knee, initial encounter] 05-09-2023 Episodic Unclassified (4 sources) Unspecified lump in the right breast, overlapping quadrants; Translations: [UNS LUMP RT BREAST OVRLPNG QUADRNTS] Onset: 1 Unclassified (1 source) 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, estrogen receptor positive (CMS-HCC) [C50.011, Z17.0] Onset: 4 Unclassified (2 sources) Other ventricular tachycardia; Translations: [Other ventricular tachycardia] Onset: 4 Unclassified (1 source) Weakness - Generalized Onset: 4 Unclassified (1 source) Short of Breath Onset: 4 Unclassified (1 source) Port/VAD Care Onset: 4 Unclassified (1 source) New Patient Onset: 4 Varicose veins of lower extremity (1 source) Varicose veins of bilateral lower extremities with pain; Translations: [VARICOSE VNS JOSE L LOW EXTREM W/PAIN] Onset: 2 Episodic Past or Other Problems Problem Classification Problem Date Documented Da te Episodic/Chronic Abdominal hernia (20 sources) Unspecified abdominal hernia with obstruction, without gangrene; Translations: [Ventral, unspecified, hernia with obstruction] Onset: 07-15-2018 07-15-2018 Episodic Cancer of breast (18 sources) History of malignant neoplasm of breast; Translations: [Personal history of malignant neoplasm of breast] Onset: 08-01-2021 02-09-2022 Episodic Cardiac dysrhythmias (7 sources) Intermittent palpitations; Translations: [Palpitations] Onset: 05-10-2023 05-10-2023 Episodic Conditions associated with dizziness or vertigo (1 source) Dizziness and giddiness; Translations: [Dizziness and giddiness] Onset: 08-15-2023 Episodic Heart valve disorders (7 sources) Ventricular bigeminy; Translations: [Other abnormalities of heart beat] Onset: 07-01-2023 07-04-2023 Episodic Mood disorders (9 sources) Mood disorders Onset: 05-10-2023 Resolved: 08-01-2023 05-10-2023 Nonmalignant breast conditions (3 sources) Unspecified lump in the right breast, upper inner quadrant; Translations: [UNS LUMP IN RT BREAST UPR INR QUAD] Onset: 05-04-2021 Episodic Other gastrointestinal disorders (4 sources) Dysphagia, oropharyngeal phase; Translations: [DYSPHAGIA OROPHARYNGEAL PHASE] Onset: 08-22-2021 Episodic Other liver diseases (11 sources) Enzyme level - finding; Translations: [Transaminitis] Onset: 06-16-2022 06-16-2022 Episodic Other lower respiratory disease (1 source) Other forms of dyspnea; Translations: [Other forms of dyspnea] Onset: 08-30-2023 Episodic Other lower respiratory disease (1 source) Hypoxemia; Translations: [Hypoxemia] Onset: 06-21-2023 Episodic Spondylosis; intervertebral disc disorders; other back problems (18 sources) Pain in thoracic spine; Translations: [Cervicalgia] Onset: 02-12-2022 Episodic Unclassified (11 sources) Onset: 07-18-2022 07-18-2022 Unclassified (1 source) Other ventricular tachycardia; Translations: [Other ventricular tachycardia] Onset: 12-03-2023 Urinary tract infections (11 sources) Urinary tract infectious disease; Translations: [Urinary tract infection, site not specified] Onset: 03-21-2023 03-21-2023 Episodic Results Test Name Value Interpretation Reference Range Facility AFB Specimen Processingon AFB Specimen Processing Comment TUBE 2 Direct Inoculation Comment TUBE 2 Negative Performed at: [facility] [place] [id number] Automotive Diagnostic Technician: Gen Kelly PhD, Phone: [phone] PERFORMED BY: [place] [address] PATHOLOGIST SAT ACT INSTRUCTOR ARELY ROSSI M.D. Normal [facility] Comment on above: Performed By: #### Phoenix Khan, BMP #### [address] Aerobic Cultureon 12-29-2023 Aerobic Culture Comment TUBE 2 No Growth 2 Days Comment TUBE 2 No Anaerobes Isolated 3 Days Comment TUBE 2 Gram Stain Result 1+ White Blood Cells No Bacteria Seen No Yeast Like Elements Seen No Fungal Like Elements Seen No Red Blood Cells Seen PERFORMED BY: [place] [address] PATHOLOGIST SAT ACT INSTRUCTOR ARELY ROSSI M.D. Normal [facility] Comment on above: Performed By: #### Phoenix Khan, BMP #### [address] Basic Metabolic Panelon 08-0 Anion gap [Moles/Vol] 10.2 mmol/L Normal 6.0-15.0 [facility] Comment on above: Performed By: #### A DDONUAPLUS #### [facility] [address] [place] [id number] [place] Calcium [Mass/Vol] 8.9 mg/dL Normal 8.6-10.3 [facility] Comment on above: Performed By: #### A DDONUAPLUS #### [facility] [address] [place] [id number] [place] Chloride [Moles/Vol] 96 mmol/L Low 98-107 [facility] Comment on above: Performed By: #### A DDONUAPLUS #### [facility] [address] [place] [address] [place] CO2 [Moles/Vol] 39.7 mmol/L High 21.0-31.0 [facility] Comment on above: Performed By: #### A DDONUAPLUS #### [place] [address] [place] Creatinine [Mass/Vol] 1.56 mg/dL High 0.60-1.20 [facility] Comment on above: Performed By: #### A DDONUAPLUS #### [facility] [address] [place] [address] [place] Creatinine Clr Calc Pharmacy 29.85 Normal [facility] Comment on above: Performed By: #### A DDONUAPLUS #### [place] [id number] [place] GFR/1.73 sq M.predicted MDRD (S/P/Bld) [Vol rate/Area] 33.194 mL/min/{1.73_m2} Normal [facility] Comment on above: Performed By: #### A DDONUAPLUS #### [place] [address] [place] Glucose [Mass/Vol] 124 mg/dL High 70-100 [facility] Comment on above: Result Comment: [place] om Glucose Reference Range is dependent on time and content of last meal. Glucose of more than 200 mg/dL in a nonstressed, ambulatory subject supports the diagnosis of Diabetes Mellitus. ADA recommended reference range Performed By: #### A DDONUAPLUS #### [address] [address] [place] Potassium [Moles/Vol] 3.9 mmol/L Normal 3.5-5.1 [facility] Comment on above: Performed By: #### A DDONUAPLUS #### [address] Sodium [Moles/Vol] 142 mmol/L Normal 136-145 [facility] Comment on above: Performed By: #### A DDONUAPLUS #### [address] Urea nitrogen [Mass/Vol] 34 mg/dL High 7-25 [facility] Comment on above: Performed By: #### A DDONUAPLUS #### [address] Cell Count/Diff, Fluidon Appearance, Fluid Hazy Normal [facility] Comment on above: Order Comment: Comme nt Purple top Body Fluid Source: Thoracentesis Fluid Body Fluid Site: right pleural fluid Result Comment: The reference interval and other method performance specifications have not been established for this body fluid. The test result must be integrated into the clinical context for interpretation. Performed By: #### M G, BMP #### [place] [address] [place] Color, Fluid Yellow Normal [facility] Comment on above: Order Comment: Comme nt Purple top Body Fluid Source: Thoracentesis Fluid Body Fluid Site: right pleural fluid Result Comment: The reference interval and other method performance specifications have not been established for this body fluid. The test result must be integrated into the clinical context for interpretation. Performed By: #### M G, BMP #### [address] Color, Fluid Supernatant Yellow Normal [facility] Comment on above: Order Comment: Comme nt Purple top Body Fluid Source: Thoracentesis Fluid Body Fluid Site: right pleural fluid Result Comment: The reference interval and other method performance specifications have not been established for this body fluid. The test result must be integrated into the clinical context for interpretation. Performed By: #### M G, BMP #### [place] [address] [place] Eosinophils, Fluid 0 /100{WBC} Normal 0-3 [facility] Comment on above: Order Comment: Comme nt Purple top Body Fluid Source: Thoracentesis Fluid Body Fluid Site: right pleural fluid Performed By: #### M G, BMP #### [facility] [address] Lymphocytes, Fluid 58 % Normal [facility] Comment on above: Order Comment: Comme nt Purple top Body Fluid Source: Thoracentesis Fluid Body Fluid Site: right pleural fluid Result Comment: The reference interval and other method performance specifications have not been established for this body fluid. The test result must be integrated into the clinical context for interpretation. Performed By: #### M G, BMP #### [address] Monocytes/Macrophages, Fluid 35 % Normal [facility] Comment on above: Order Comment: Comme nt Purple top Body Fluid Source: Thoracentesis Fluid Body Fluid Site: right pleural fluid Result Comment: The reference interval and other method performance specifications have not been established for this body fluid. The test result must be integrated into the clinical context for interpretation. Performed By: #### M G, BMP #### [address] Neutrophil, Fluid 3 % Normal [facility] Comment on above: Order Comment: Comme nt Purple top Body Fluid Source: Thoracentesis Fluid Body Fluid Site: right pleural fluid Result Comment: The reference interval and other method performance specifications have not been established for this body fluid. The test result must be integrated into the clinical context for interpretation. Performed By: #### M G, BMP #### [facility] [address] Other Mononuclear Cells, Fluid 4 % Normal [facility] Comment on above: Order Comment: Comme nt Purple top Body Fluid Source: Thoracentesis Fluid Body Fluid Site: right pleural fluid Result Comment: MESO THELIAL CELLS The reference interval and other method performance specifications have not been established for this body fluid. The test result must be integrated into the clinical context for interpretation. PERFORMED BY: [place] [address] PATHOLOGIST SAT ACT INSTRUCTOR ARELY ROSSI M.D. Performed By: #### M G, BMP #### [address] RBC, Fluid 1106 Normal [facility] Comment on above: Order Comment: Comme nt Purple top Body Fluid Source: Thoracentesis Fluid Body Fluid Site: right pleural fluid Result Comment: The reference interval and other method performance specifications have not been established for this body fluid. The test result must be integrated into the clinical context for interpretation. Performed By: #### M G, BMP #### [address] TNC, Body Fluid 812 Normal [facility] Comment on above: Order Comment: Comme nt Purple top Body Fluid Source: Thoracentesis Fluid Body Fluid Site: right pleural fluid Result Comment: The reference interval and other method performance specifications have not been established for this body fluid. The test result must be integrated into the clinical context for interpretation. Performed By: #### M G, BMP #### [address] Fungal Smearon 12-29-2023 Fungal Smear Comment TUBE 2 Fungus Smear Results No Fungal Like Elements Seen No Yeast Like Elements Seen PERFORMED BY: [place] [address] PATHOLOGIST SAT ACT INSTRUCTOR ARELY ROSSI M.D. Normal [facility] Comment on above: Performed By: #### M G, BMP #### [address] Glucose, Fluidon 12-29-2023 Glucose, Fluid 204 mg/dL Normal [facility] Comment on above: Order Comment: Tube Number Tube 1 Result Comment: No r eference range established Performed By: #### M G, BMP #### [address] Gram Stainon 12-29-2023 Microscopic observation Gram stain Nom (Unsp spec) Comment TUBE 2 Gram Stain Result 1+ White Blood Cells No Bacteria Seen No Yeast Like Elements Seen No Fungal Like Elements Seen No Red Blood Cells Seen PERFORMED BY: [place] [address] PATHOLOGIST SAT ACT INSTRUCTOR ARELY ROSSI M.D. Normal [facility] Comment on above: Performed By: #### M G, BMP #### [place] [id number] [place] LDH, Fluidon 12-29-2023 LDH, Fluid 115 [IU]/mL Normal [facility] Comment on above: Order Comment: Tube Number Tube 1 Result Comment: No r eference range established Performed By: #### M G, BMP #### [place] [phone] [facility] Magnesiumon 12-29-2023 Magnesium [Mass/Vol] 2.3 mg/dL Normal 1.9-2.7 [facility] Comment on above: Result Comment: PERF ORMED BY: [place] [address] PATHOLOGIST SAT ACT INSTRUCTOR ARELY ROSSI M.D. Performed By: #### A DDONUAPLUS #### [place] [id number] [place] Total Protein, Fluidon 12-28 Total Protein, Fluid 4.1 g/dL Normal [facility] Comment on above: Order Comment: Tube Number Tube 1 Performed By: #### M G, BMP #### [place] [id number] [facility] Triglyceride, Fluidon 2023 Triglyceride, Fluid 23 mg/dL Normal [facility] Comment on above: Order Comment: Tube Number Tube 1 Result Comment: No r eference range established PERFORMED BY: [place] [address] PATHOLOGIST SAT ACT INSTRUCTOR ARELY ROSSI M.D. Performed By: #### M G, BMP #### [place] [id number] [place] XR chest 1V portableon 12-28 XR chest 1V portable [facility] [place] [address] [place] [address] XRay Report Signed Patient: Krista Ly MR#: [id number] : 1940 Acct:[id number] Age/Sex: 83 / F ADM Date: 12/26/23 Loc: 3T Room: [address] [place] [address] Type: ADM IN Attending Dr: Trent Duarte DO Copies to: MD Trent Mcbride DO Ordering Provider: Monroe Selby MD Date of Service: 12/29/23 XR/XR chest 1V portable: s/p thoracentesis; 800 mL removed Plain film chest Single view HISTORY: Status post RIGHT thoracentesis COMPARISON: 12/29/23 FINDINGS: SUPPORT DEVICES: None POSTSURGICAL CHANGES: None HEART: Continued cardiomegaly PULMONARY ALONDRA: Within normal limits MEDIASTINUM: Unremarkable LUNGS AND PLEURA: Near complete resolution of RIGHT pleural effusion. No developing pneumothorax. Mild atelectasis. BONY STRUCTURES: Intact ADDITIONAL FINDINGS None XR/XR chest 1V portable IMPRESSION: Near-complete resolution of RIGHT pleural effusion postthoracentesis. No developing pneumothorax. Impression dictated by: Chay Choi M.D.12/29/2023 4:05 PM Dictation Location: [place] [address] Transcribed By: [facility] 12/29/23 1605 Dictated By: Chay Choi DO 12/29/23 1603 Signed By: 12/29/23 1605 Normal [facility] XR chest 2V*on 12-29-2023 XR chest 2V* [facility] [address] XRay Report Signed Patient: Krista Ly MR#: [id number] : 1940 Acct:[id number] Age/Sex: 83 / F ADM Date: 12/26/23 Loc: 3T Room: [address] [place] [address] Type: ADM IN Attending Dr: Trent Duarte DO Copies to: MD Trent Mcbride DO Ordering Provider: Monroe Selby MD Date of Service: 12/29/23 XR/XR chest 2V*: Reevaluate pleural effusion Plain film chest 2 view HISTORY: Reevaluate pleural effusion on the RIGHT COMPARISON: 12/26/23, CT chest 12/27/23 FINDINGS: SUPPORT DEVICES: None POSTSURGICAL CHANGES: None HEART: Similar cardiomegaly PULMONARY ALONDRA: Improved vascular congestion MEDIASTINUM: Unremarkable LUNGS AND PLEURA: Mildly decreased to moderate RIGHT pleural effusion. No pneumothorax. Atelectasis. BONY STRUCTURES: Intact ADDITIONAL FINDINGS None XR/XR chest 2V* IMPRESSION: Improving moderate RIGHT pleural effusion. Improved vascular congestion. Impression dictated by: Chay Choi M.D.12/29/2023 7:55 AM Dictation Location: [place] [address] Transcribed By: [facility] 12/29/23 075 Dictated By: Chay Choi DO 12/29/23 0749 Signed By: 12/29/23 0755 Normal [facility] Basic Metabolic Panelon 08- Anion gap [Moles/Vol] 8.7 mmol/L Normal 6.0-15.0 [facility] Comment on above: Performed By: #### Phoenix Khan, BMP #### [address] Calcium [Mass/Vol] 8.9 mg/dL Normal 8.6-10.3 [facility] Comment on above: Performed By: #### Phoenix Khan, BMP #### [address] Chloride [Moles/Vol] 97 mmol/L Low 98-107 [facility] Comment on above: Performed By: #### Phoenix hKan, BMP #### [place] [id number] [place] CO2 [Moles/Vol] 40.2 mmol/L High 21.0-31.0 [facility] Comment on above: Performed By: #### Phoenix G, BMP #### [address] Creatinine [Mass/Vol] 1.14 mg/dL Normal 0.60-1.20 [facility] Comment on above: Performed By: #### Phoenix Khan, BMP #### [place] [id number] [place] Creatinine Clr Calc Pharmacy 41.05 Normal [facility] Comment on above: Performed By: #### M G, BMP #### [place] [address] [place] GFR/1.73 sq M.predicted MDRD (S/P/Bld) [Vol rate/Area] 48.363 mL/min/{1.73_m2} Normal [facility] Comment on above: Performed By: #### M G, BMP #### [address] Glucose [Mass/Vol] 89 mg/dL Normal 70-100 [facility] Comment on above: Result Comment: [facility] Glucose Reference Range is dependent on time and content of last meal. Glucose of more than 200 mg/dL in a nonstressed, ambulatory subject supports the diagnosis of Diabetes Mellitus. ADA recommended reference range Performed By: #### M G, BMP #### [address] Potassium [Moles/Vol] 3.9 mmol/L Normal 3.5-5.1 [facility] Comment on above: Performed By: #### Phoenix G, BMP #### [place] [address] [place] Sodium [Moles/Vol] 142 mmol/L Normal 136-145 [facility] Comment on above: Performed By: #### M G, BMP #### [place] [address] [place] Urea nitrogen [Mass/Vol] 34 mg/dL High 7-25 [facility] Comment on above: Performed By: #### M G, BMP #### [place] [address] [place] Glucose Poct Glucometerson 0 12-28-2023 Glucose [Mass/Vol] 179 mg/dL Normal [facility] Comment on above: Result Comment: [facility] Glucose Reference Range is dependent on time and content of last meal. Glucose of more than 200 mg/dL in a nonstressed, ambulatory subject supports the diagnosis of Diabetes Mellitus. PERFORMED BY: [address] [place] [address] PATHOLOGIST SAT ACT INSTRUCTOR ARELY ROSSI M.D. Performed By: #### A DDONUAPLUS #### [address] Glucose [Mass/Vol] 101 mg/dL Normal [facility] Comment on above: Result Comment: [facility] Glucose Reference Range is dependent on time and content of last meal. Glucose of more than 200 mg/dL in a nonstressed, ambulatory subject supports the diagnosis of Diabetes Mellitus. PERFORMED BY: [place] [address] PATHOLOGIST SAT ACT INSTRUCTOR ARELY ROSSI M.D. Performed By: #### A DDONUAPLUS #### [address] Magnesiumon 12-28-2023 Magnesium [Mass/Vol] 2.1 mg/dL Normal 1.9-2.7 [facility] Comment on above: Result Comment: PERF ORMED BY: [place] [address] PATHOLOGIST SAT ACT INSTRUCTOR ARELY ROSSI M.D. Performed By: #### M G, BMP #### [address] Basic Metabolic Panelon 08-0 Anion gap [Moles/Vol] 8.9 mmol/L Normal 6.0-15.0 [facility] Comment on above: Performed By: #### A DDONUAPLUS #### [place] [address] [place] Calcium [Mass/Vol] 9.1 mg/dL Normal 8.6-10.3 [facility] Comment on above: Performed By: #### A DDONUAPLUS #### [place] [address] [place] Chloride [Moles/Vol] 99 mmol/L Normal 98-107 [facility] Comment on above: Performed By: #### A DDONUAPLUS #### [place] [address] [place] CO2 [Moles/Vol] 36.4 mmol/L High 21.0-31.0 [facility] Comment on above: Performed By: #### A DDONUAPLUS #### [address] Creatinine [Mass/Vol] 1.34 mg/dL High 0.60-1.20 [facility] Comment on above: Performed By: #### A DDONUAPLUS #### [place] [address] [place] Creatinine Clr Calc Pharmacy 34.92 Normal [facility] Comment on above: Performed By: #### A DDONUAPLUS #### [place] [address] [place] GFR/1.73 sq M.predicted MDRD (S/P/Bld) [Vol rate/Area] 39.836 mL/min/{1.73_m2} Normal [facility] Comment on above: Performed By: #### A DDONUAPLUS #### [address] Glucose [Mass/Vol] 162 mg/dL High 70-100 [facility] Comment on above: Result Comment: [place] Glucose Reference Range is dependent on time and content of last meal. Glucose of more than 200 mg/dL in a nonstressed, ambulatory subject supports the diagnosis of Diabetes Mellitus. ADA recommended reference range Performed By: #### A DDONUAPLUS #### [place] [address] [place] Potassium [Moles/Vol] 4.3 mmol/L Normal 3.5-5.1 [facility] Comment on above: Performed By: #### A DDONUAPLUS #### [place] [address] [place] Sodium [Moles/Vol] 140 mmol/L Normal 136-145 The [facility] Comment on above: Performed By: #### A DDONUAPLUS #### [place] [address] [place] Urea nitrogen [Mass/Vol] 38 mg/dL High 7-25 [facility] Comment on above: Performed By: #### A DDONUAPLUS #### [facility] [address] [id number] [facility] CT chest w conon 12-27-2023 CT chest w con [facility] Main [place] [id number] Scan Report Signed Patient: Krista Ly MR#: [id number] : 1940 Acct:[id number] Age/Sex: 83 / F ADM Date: 12/26/23 Loc: Room: [address] [place] [address] Type: ADM IN Attending Dr: Roland Garcia DO Copies to: DO Roland Baca DO Ordering Provider: Jose Eduardo Cifuentes DO Date of Service: 12/27/23 CT/CT chest w con: Further characterization of pleural effusions CT CHEST WITH INTRAVENOUS CONTRAST: CLINICAL HISTORY: Follow-up pleural effusion. COMPARISON: Chest 12/26/2023 TECHNIQUE: Spiral images were obtained through the chest following intravenous administration of IV contrast. This CT exam was performed using one or more following dose reduction techniques: Automated exposure control, adjustment of the mA and/or kV according to patient size, or use of iterative reconstruction technique. FINDINGS: Mediastinum:Thoracic curvature demonstrates moderate calcification without aneurysm. Pulmonary trunk appears nondilated. No pericardial effusion or lymphadenopathy. The esophagus is grossly unremarkable. Lungs:Moderate right-sided pleural effusion with associated consolidative changes involving the right lower lobe without abnormal pleural thickening or enhancement. Consolidative changes are also noted involving the right middle lobe. Mild lung scarring is seen. Mild peripheral reticular changes. No pneumothorax or left-sided pleural effusion. No measurable nodule. Abd:No acute findings. Soft tissues/Bones: Soft tissues demonstrate no acute findings. Right mastectomy changes. Osseous structures demonstrate degenerative change. CT/CT chest w con IMPRESSION: Moderate right-sided pleural effusion with associated consolidative changes involving the right lower and middle lobes. Superimposed pneumonia cannot be excluded. Impression dictated by: Malia Alexander Jr.OJulieta12/27/2023 12:50 PM Dictation Location: [place] [address] Transcribed By: [facility] 12/27/23 1250 Dictated By: Keyshawn Gill Jr, DO 12/27/23 1248 Signed By: 12/27/23 1250 Normal [facility] Complete Blood Count Auto Di ffon 12-27-2023 Basophils (Bld) [#/Vol] 0.0 10*3/uL Normal 0.0-0.2 [facility] Comment on above: Result Comment: PERF ORMED BY: [place] [address] PATHOLOGIST SAT ACT INSTRUCTOR ARELY ROSSI M.D. Performed By: #### A DDONUAPLUS #### [place] [address] [place] Basophils/100 WBC (Bld) 0.2 % Normal . [facility] Comment on above: Performed By: #### A DDONUAPLUS #### [address] Eosinophils (Bld) [#/Vol] 0.0 10*3/uL Normal 0.0-0.45 [facility] Comment on above: Performed By: #### A DDONUAPLUS #### [place] [address] [place] Eosinophils/100 WBC (Bld) 0.2 % Normal . [facility] Comment on above: Performed By: #### A DDONUAPLUS #### [address] Erythrocyte distribution width (RBC) [Ratio] 18.0 % High 11.9-15.3 [facility] Comment on above: Performed By: #### A DDONUAPLUS #### [address] Hematocrit (Bld) [Volume fraction] 33.8 % Low 34.0-46.4 [facility] Comment on above: Performed By: #### A DDONUAPLUS #### [address] Hemoglobin (Bld) [Mass/Vol] 10.8 g/dL Low 11.8-15.4 [facility] Comment on above: Performed By: #### A DDONUAPLUS #### [facility] [address] Lymphocytes (Bld) [#/Vol] 0.6 10*3/uL Low 1.00-4.8 [facility] Comment on above: Performed By: #### A DDONUAPLUS #### [address] Lymphocytes/100 WBC (Bld) 6.3 % Normal . [facility] Comment on above: Performed By: #### A DDONUAPLUS #### [address] MCH (RBC) [Entitic mass] 28.5 pg Normal 24.7-34.3 [facility] Comment on above: Performed By: #### A DDONUAPLUS #### [address] MCV (RBC) [Entitic vol] 89.0 fL Normal 80-100 [facility] Comment on above: Performed By: #### A DDONUAPLUS #### [address] Mean Corpuscular HGB Conc 32.1 g/dL Normal 32.0-35.0 [facility] Comment on above: Performed By: #### A DDONUAPLUS #### [address] Monocytes (Bld) [#/Vol] 0.6 10*3/uL Normal 0.0-0.8 [facility] Comment on above: Performed By: #### A DDONUAPLUS #### [place] [address] [place] Monocytes/100 WBC (Bld) 5.9 % Normal . [facility] Comment on above: Performed By: #### A DDONUAPLUS #### [address] Neutrophils (Bld) [#/Vol] 8.6 10*3/uL High 1.8-7.7 [facility] Comment on above: Performed By: #### A DDONUAPLUS #### [address] Neutrophils/100 WBC (Bld) 87.4 % Normal . [facility] Comment on above: Performed By: #### A DDONUAPLUS #### [address] NRBC% 0.1 /100{WBC} Normal 0-0.5 [facility] Comment on above: Performed By: #### A DDONUAPLUS #### [address] Platelet mean volume (Bld) [Entitic vol] 8.3 fL Normal 6.3-10.7 [facility] Comment on above: Performed By: #### A DDONUAPLUS #### [address] Platelets (Bld) [#/Vol] 142 10*3/uL Low 150-450 [facility] Comment on above: Performed By: #### A DDONUAPLUS #### [address] RBC (Bld) [#/Vol] 3.80 10*6/uL Normal 3.60-5.00 [facility] Comment on above: Performed By: #### A DDONUAPLUS #### [address] WBC (Bld) [#/Vol] 9.8 10*3/uL Normal 3.8-11.6 [facility] Comment on above: Performed By: #### A DDONUAPLUS #### [address] Glucose Poct Glucometerson 0 12-27-2023 Glucose [Mass/Vol] 192 mg/dL Normal [facility] Comment on above: Result Comment: [place] Glucose Reference Range is dependent on time and content of last meal. Glucose of more than 200 mg/dL in a nonstressed, ambulatory subject supports the diagnosis of Diabetes Mellitus. PERFORMED BY: [address] [address] PATHOLOGIST SAT ACT INSTRUCTOR ARELY ROSSI M.D. Performed By: #### A DDONUAPLUS #### [address] Glucose [Mass/Vol] 73 mg/dL Normal [facility] Comment on above: Result Comment: [place] om Glucose Reference Range is dependent on time and content of last meal. Glucose of more than 200 mg/dL in a nonstressed, ambulatory subject supports the diagnosis of Diabetes Mellitus. PERFORMED BY: [place] [address] PATHOLOGIST SAT ACT INSTRUCTOR ARELY ROSSI M.D. Performed By: #### G LULS #### Point of Care testing , Commemt1 Glu2: Cleaned Meter Normal [facility] Comment on above: Result Comment: PERF ORMED BY: [place] [address] PATHOLOGIST SAT ACT INSTRUCTOR ARELY ROSSI M.D. Performed By: #### G LULS #### Point of Care testing , Glucose [Mass/Vol] 233 mg/dL Normal [facility] Comment on above: Result Comment: [place] om Glucose Reference Range is dependent on time and content of last meal. Glucose of more than 200 mg/dL in a nonstressed, ambulatory subject supports the diagnosis of Diabetes Mellitus. Performed By: #### G LULS #### Point of Care testing , Commemt1 Glu2: Cleaned Meter Normal [facility] Comment on above: Result Comment: PERF ORMED BY: [place] [address] PATHOLOGIST SAT ACT INSTRUCTOR ARELY ROSSI M.D. Performed By: #### G LULS #### Point of Care testing , Glucose [Mass/Vol] 210 mg/dL Normal [facility] Comment on above: Result Comment: [place] om Glucose Reference Range is dependent on time and content of last meal. Glucose of more than 200 mg/dL in a nonstressed, ambulatory subject supports the diagnosis of Diabetes Mellitus. Performed By: #### G LULS #### Point of Care testing , Commemt1 Glu2: Cleaned Meter Normal [facility] Comment on above: Result Comment: PERF ORMED BY: [place] [address] PATHOLOGIST SAT ACT INSTRUCTOR ARELY ROSSI M.D. Performed By: #### G LULS #### Point of Care testing , Glucose [Mass/Vol] 130 mg/dL Normal [facility] Comment on above: Result Comment: [facility] Glucose Reference Range is dependent on time and content of last meal. Glucose of more than 200 mg/dL in a nonstressed, ambulatory subject supports the diagnosis of Diabetes Mellitus. Performed By: #### G LULS #### Point of Care testing , Magnesiumon 12-27-2023 Magnesium [Mass/Vol] 1.9 mg/dL Normal 1.9-2.7 [facility] Comment on above: Result Comment: PERF ORMED BY: [place] [address] PATHOLOGIST SAT ACT INSTRUCTOR ARELY ROSSI M.D. Performed By: #### C K, PT, PTT, BMP, CBC, HS TROP, BNP #### [facility] [address] [place] [address] Activated partial thrombopla stin time (aPTT) in platelet poor plasma by coagulation aOrdered By: Susanne Cannon on 12-26-2023 aPTT Coag (PPP) [Time] 32.1 s 25.1-36.5 [facility] Comment on above: A hematocrit value g reater than 55% may lead to inaccurate results in coagulation testing. Patients having hematocrit values >55% require a special collection tube for coagulation studies. Please contact the laboratory at [phone] for redraw instructions. Automated basophil %Ordered By: Susanne Cannon on 12-26-2023 Basophils/100 WBC (Bld) 0.6 % Normal . [facility] Comment on above: Performed By: #### C K, PT, PTT, BMP, CBC, HS TROP, BNP #### [facility] [address] [id number] [facility] Automated basophil countOrde red By: Susanne Cannon on 12-26-2023 Basophils (Bld) [#/Vol] 0.0 10*3/uL Normal 0.0-0.2 [facility] Comment on above: Result Comment: PERF ORMED BY: [place] [address] PATHOLOGIST SAT ACT INSTRUCTOR ARELY ROSSI M.D. Performed By: #### C K, PT, PTT, BMP, CBC, HS TROP, BNP #### [address] Automated blood monocyte cou ntOrdered By: Susanne Cannon on 12-26-2023 Monocytes (Bld) [#/Vol] 0.3 10*3/uL Normal 0.0-0.8 [facility] Comment on above: Performed By: #### C K, PT, PTT, BMP, CBC, HS TROP, BNP #### [address] Automated eosinophil %Ordere d By: Susanne Cannon on 12-26-2023 Eosinophils/100 WBC (Bld) 1.4 % Normal . [facility] Comment on above: Performed By: #### C K, PT, PTT, BMP, CBC, HS TROP, BNP #### [address] Automated eosinophil countOr dered By: Susanne Cannon on 12-26-2023 Eosinophils (Bld) [#/Vol] 0.1 10*3/uL Normal 0.0-0.45 [facility] Comment on above: Performed By: #### C K, PT, PTT, BMP, CBC, HS TROP, BNP #### [address] Automated monocyte %Ordered By: Susanne Cannon on 12-26-2023 Monocytes/100 WBC (Bld) 3.2 % Normal . [facility] Comment on above: Performed By: #### C K, PT, PTT, BMP, CBC, HS TROP, BNP #### [address] Automated neutrophil %Ordere d By: Susanne Cannon on 12-26-2023 Neutrophils/100 WBC (Bld) 87.2 % Normal . [facility] Comment on above: Performed By: #### C K, PT, PTT, BMP, CBC, HS TROP, BNP #### [address] BNP ser/plasOrdered By: Jose Cannon on 12-26-2023 Natriuretic peptide B (Bld) [Mass/Vol] 210.0 pg/mL High 5-100 [facility] Comment on above: Result Comment: PERF ORMED BY: [place] [address] PATHOLOGIST SAT ACT INSTRUCTOR ARELY ROSSI M.D. Performed By: #### C K, PT, PTT, BMP, CBC, HS TROP, BNP #### [address] Bacteria [Presence] in Urine by AutomatedOrdered By: Susanne Cannon on 12-26-2023 Bacteria Auto Ql (U) None seen [HPF] None Seen [facility] Basic Metabolic Panelon 11-27 Creatinine Clr Calc Pharmacy 38.03 Normal [facility] Comment on above: Result Comment: PERF ORMED BY: [place] [address] PATHOLOGIST SAT ACT INSTRUCTOR ARELY ROSSI M.D. Performed By: #### C K, PT, PTT, BMP, CBC, HS TROP, BNP #### [address] GFR/1.73 sq M.predicted MDRD (S/P/Bld) [Vol rate/Area] 43.721 mL/min/{1.73_m2} Normal [facility] Comment on above: Performed By: #### C K, PT, PTT, BMP, CBC, HS TROP, BNP #### [address] Bilirubin Test strip Ql (U)O rdered By: Susanne Cannon on 12-26-2023 Bilirubin Ql (U) Negative Negative [facility] COVID CepheidOrdered By: Lisa reid Royce on 12-26-2023 SARS-CoV-2 (COVID-19) Ab IA Ql Negative Negative [facility] Comment on above: This is a duplicate Cepheid Xpert Xpress CoV-2/Flu/RSV Plus RNA by RT-PCR result to be used for statistical tracking purpose only. SARS-CoV-2 (COVID-19) RNA YUMIKO+probe Ql (Unsp spec) [facility] COVID-19 / Flu A/B / RSV PCR on 12-26-2023 SARS-CoV-2 (COVID-19) RNA YUMIKO+probe Ql (Unsp spec) COVID-19 Cepheid Result Negative for SARS-CoV-2 RNA by RT-PCR Flu A Cepheid Result Negative for Flu A RNA by RT-PCR Flu B Cepheid Result Negative for Flu B RNA by RT-PCR RSV Cepheid Result Negative for RSV RNA by RT-PCR COVID19 Blank Space -- Reference: Negative COVID19 Blank Space -- Cepheid Disclaimer The Cepheid Xpert Xpress CoV-2/Flu/RSV Plus has Cepheid Disclaimer not been FDA cleared or approved; this test has Cepheid Disclaimer been authorized by FDA under an EUA for use by Cepheid Disclaimer authorized laboratories; this test has been Cepheid Disclaimer authorized only for the simultaneous qualitative Cepheid Disclaimer detection and differentiation of nucleic acids from Cepheid Disclaimer SARS-CoV-2, influenza A, influenza B, and Cepheid Disclaimer respiratory syncytial virus (RSV), and not for any Cepheid Disclaimer other viruses or pathogens; and this test is only Cepheid Disclaimer authorized for the duration of the declaration that Cepheid Disclaimer circumstances exist justifying the authorization of Cepheid Disclaimer emergency use of in vitro diagnostic tests for Cepheid Disclaimer detection and/or diagnosis of COVID-19 under Cepheid Disclaimer Section 564(b)(1) of the Act, 21 U.S.C. 360bbb- Cepheid Disclaimer 3(b)(1), unless the authorization is terminated or Cepheid Disclaimer revoked sooner. PERFORMED BY: [place] [address] PATHOLOGIST SAT ACT INSTRUCTOR ARELY ROSSI M.D. Normal [facility] Comment on above: Performed By: #### G LULS #### Point of Care testing , Calcium [Mass/volume] in Ser um or PlasmaOrdered By: Susanne Cannon on 12-26-2023 Calcium [Mass/Vol] 9.7 mg/dL Normal 8.6-10.3 [facility] Comment on above: Performed By: #### C K, PT, PTT, BMP, CBC, HS TROP, BNP #### [facility] [address] [place] [address] Carbon dioxide, total [Moles /volume] in Serum or PlasmaOrdered By: Susanne Cannon on 12-26-2023 CO2 [Moles/Vol] 38.3 mmol/L High 21.0-31.0 [facility] Comment on above: Performed By: #### C K, PT, PTT, BMP, CBC, HS TROP, BNP #### [facility] [address] [place] [address] Cepheid COVID PCR Negativeon 12-26-2023 SARS-CoV-2 (COVID-19) RNA YUMIKO+probe Ql (Unsp spec) Negative Normal Negative [facility] Comment on above: Result Comment: This is a duplicate Cepheid Xpert Xpress CoV-2/Flu/RSV Plus RNA by RT-PCR result to be used for statistical tracking purpose only. PERFORMED BY: [address] [place] [id number] PATHOLOGIST SAT ACT INSTRUCTOR ARELY ROSSI M.D. Performed By: #### G LULS #### Point of Care testing , Chloride [Moles/volume] in S zoran or PlasmaOrdered By: Susanne Cannon on 12-26-2023 Chloride [Moles/Vol] 100 mmol/L Normal 98-107 [facility] Comment on above: Performed By: #### C K, PT, PTT, BMP, CBC, HS TROP, BNP #### [address] Color of Urine by AutoOrdere d By: Susanne Cannon on 12-26-2023 Color (U) Light-yellow Normal Yellow [facility] Comment on above: Order Comment: Name Collection Type:: Voided Performed By: #### A DDONUAPLUS #### [address] Complete Blood Count Auto Di ffon 12-26-2023 Mean Corpuscular HGB Conc 31.9 g/dL Low 32.0-35.0 [facility] Comment on above: Performed By: #### C K, PT, PTT, BMP, CBC, HS TROP, BNP #### [address] Monocytes/100 WBC (Bld) 17.57 % Normal 0.00-20.00 [facility] Comment on above: Performed By: #### C K, PT, PTT, BMP, CBC, HS TROP, BNP #### [address] NRBC% 0.0 /100{WBC} Normal 0-0.5 [facility] Comment on above: Performed By: #### C K, PT, PTT, BMP, CBC, HS TROP, BNP #### [address] Creatine kinase [Enzymatic a ctivity/volume] in Serum or PlasmaOrdered By: Susanne Cannon on 12-26-2023 CK [Catalytic activity/Vol] 84 U/L Normal 30-223 [facility] Comment on above: Performed By: #### C K, PT, PTT, BMP, CBC, HS TROP, BNP #### [address] Creatinine [Mass/volume] in Serum or PlasmaOrdered By: Susanne Cannon on 12-26-2023 Creatinine [Mass/Vol] 1.24 mg/dL High 0.60-1.20 [facility] Comment on above: Performed By: #### C K, PT, PTT, BMP, CBC, HS TROP, BNP #### [facility] [address] [place] [address] [place] Dipstick and Microscopicon 0 12-26-2023 Bacteria,Urine None Seen Normal None Seen [facility] Comment on above: Order Comment: Name Collection Type:: Voided Performed By: #### A DDONUAPLUS #### [place] [address] [place] Bilirubin,Urine Negative Normal Negative [facility] Comment on above: Order Comment: Name Collection Type:: Voided Performed By: #### A DDONUAPLUS #### [place] [address] [place] Glucose Ql (U) Normal Normal Normal [facility] Comment on above: Order Comment: Name Collection Type:: Voided Performed By: #### A DDONUAPLUS #### [place] [address] [place] Hyaline Casts,Urine None Normal 0-8 [facility] Comment on above: Order Comment: Name Collection Type:: Voided Performed By: #### A DDONUAPLUS #### [place] [address] [place] Mucus,Urine Rare Normal [facility] Comment on above: Order Comment: Name Collection Type:: Voided Result Comment: PERF ORMED BY: [place] [address] PATHOLOGIST SAT ACT INSTRUCTOR ARELY ROSSI M.D. Performed By: #### A DDONUAPLUS #### [place] [address] [place] Nitrite,Urine Negative Normal Negative [facility] Comment on above: Order Comment: Name Collection Type:: Voided Performed By: #### A DDONUAPLUS #### [place] [address] [place] Occult Blood,Urine Negative Normal Negative [facility] Comment on above: Order Comment: Name Collection Type:: Voided Result Comment: PERF ORMED BY: [place] [address] PATHOLOGIST SAT ACT INSTRUCTOR ARELY ROSSI M.D. Performed By: #### A DDONUAPLUS #### [address] Protein,Urine Negative Normal Negative [facility] Comment on above: Order Comment: Name Collection Type:: Voided Performed By: #### A DDONUAPLUS #### [address] RBC,Urine 1-2 Normal 0-4 [facility] Comment on above: Order Comment: Name Collection Type:: Voided Performed By: #### A DDONUAPLUS #### [place] [address] [place] Specificy [place],Urine 1.009 Normal 1.001-1.03 0 [facility] Comment on above: Order Comment: Name Collection Type:: Voided Performed By: #### A DDONUAPLUS #### [place] [address] [place] Squamous Epithelial Cell,Urine 1-2 Normal 0-2 [facility] Comment on above: Order Comment: Name Collection Type:: Voided Performed By: #### A DDONUAPLUS #### [place] [address] [place] Urobilinogen,Urine Normal Normal Normal [facility] Comment on above: Order Comment: Name Collection Type:: Voided Performed By: #### A DDONUAPLUS #### [place] [address] [place] WBC,Urine 3-4 Normal 0-4 [facility] Comment on above: Order Comment: Name Collection Type:: Voided Performed By: #### A DDONUAPLUS #### [address] ECG 12 lead ECGon 07-31-2024 ECG 12 lead [address] [facility] [place] [address] Electrocardiograph Report Signed Patient: Krista Ly MR#: [id number] : 1940 Acct:[id number] Age/Sex: 83 / F ADM Date: 12/26/23 Loc: ER Room: Type: [facility] ER Attending Dr: Ordering Provider: Susanne Cannon DO Date of Service: 12/26/23 ECG/ECG 12 lead ECG: CHEST PAIN Copies to: Test Reason : Blood Pressure : 109/55 mmHG Vent. Rate : 73 BPM Atrial Rate : 73 BPM P-R Int : 164 ms QRS Dur : 92 ms QT Int : 414 ms P-R-T Axes : 48 -27 18 degrees QTcB Int : 456 ms Normal sinus rhythm Anterior infarct , age undetermined Abnormal ECG No previous ECGs available Confirmed by SUSANNE CANNON DO ([id number]) on 12/26/2023 10:50:51 AM Referred By: Electronically Signed By: SUSANNE CANNON DO Transcribed By: MUS Signed By Susanne Cannon DO 1050 Normal [facility] ECH echo transthoracicon ECH echo transthoracic [facility] [place] [address] Echocardiogram Signed Patient: Krista Ly MR#: [id number] : 1940 Acct:[id number] Age/Sex: 83 / F ADM Date: 12/26/23 Loc: Room: [address] [place] [address] Type: ADM IN Attending Dr: Roland Garcia DO Ordering Provider: Jose Eduardo Cifuentes DO Date of Service: 12/26/23 ECH/ECH echo transthoracic: Shortness of Breath/Dyspnea Copies to: Yumiko Ocampo MD, FACC Jose Eduardo Cifuentes DO Height: 62 in Weight: 207 lb Performed By: YUDI Carranza BSA: 1.9 m2 BP: 130/64 mmHg HR: 73 Reason For Study: Shortness of Breath/Dyspnea History: HLD, Breast Cancer, DM, HTN, Mastectomy, Former Smoker, Family history: CAD Interpretation Summary The left ventricular size, thickness and function are normal Ejection Fraction = 60-65%. The left atrium appears mildly dilated. There is mild tricuspid regurgitation. The right ventricular systolic pressure is 62 mmHg. Right ventricular systolic pressure is consistent with severe pulmonary hypertension. The right ventricle is mild to moderately dilated. Trivial pericardial effusion. There is no prior echocardiogram noted for this patient. Procedure/Quality: A two-dimensional transthoracic echocardiogram with color flow and Doppler was performed. The study was technically good in quality. There is no prior echocardiogram noted for this patient. Left Ventricle: The left ventricular size, thickness and function are normal. Ejection Fraction = 60-65%. Left Atrium: The left atrium appears mildly dilated. The atrial septum appears normal. Right Atrium: The right atrium appears normal in size. Right Ventricle: The right ventricle is mild to moderately dilated. Aortic Valve: The aortic valve is trileaflet. Mitral Valve: The mitral valve is mildly sclerotic. There is trace mitral regurgitation. Tricuspid Valve: The tricuspid valve is normal in structure. There is mild tricuspid regurgitation. The right ventricular systolic pressure is 62 mmHg. Right ventricular systolic pressure is consistent with severe pulmonary hypertension. Pulmonic Valve: The pulmonic valve is not well seen, but is grossly normal. Arteries: The aortic root is normal size. Pericardium/Pleura: Trivial pericardial effusion. There is no pleural effusion. IVC/Hepatic Veins: The IVC is normal in size with an inspiratory collapse of greater then 50%, suggesting normal right atrial pressure. Miscellaneous: No thrombus, vegetation or mass is seen. Measurements with Normals IVSd: 1.0 cm (0.7-1.1 cm)LVIDd: 5.2 cm (3.7-5.4 cm) LVPWd: 1.1 cm (0.7-1.1 cm)LVIDs: 3.5 cm (2.3-3.6 cm) LA dimension: 4.7 cm (2.3-4.0 cm)Ao root diam: 3.5 cm(2.0-3.6 cm) asc Aorta Diam: 3.3 cm(2.1-3.4cm) Doppler with Normals RVSP(TR): 62.3 mmHg (18-35mmHg) LV V1 max: 108.8 cm/sec (0.7-1.7m/s)MV E max jere: 92.1 cm/sec(0.8-1.3m/s) MV A max jere: 78.8 cm/sec(0.0-0.0m/s) MV E/A: 1.2 (<1.5) MMode/2D Measurements Calculations RVDd: 3.5 cm RV Base: 3.6 cm FS: 32.6 % Ao root area: TAPSE: 2.6 cm RV Mid: 2.8 cm EDV(Teich): 128.6 ml 9.5 cm2 RV S Jere: RV Length: 5.1 cmESV(Teich): 50.7 ml 23.4 cm/sec EF(Teich): 60.6 % __ LVOT diam: 2.1 cm LVLd ap4: 5.6 cm SV(MOD-sp4): 29.0 ml LAV(MOD-sp4): LVOT area: 3.4 cm2 EDV(MOD-sp4): 48.3 ml 49.2 ml LAV(MOD-sp2): LVLs ap4: 4.5 cm 64.5 ml ESV(MOD-sp4): 20.2 ml EF(MOD-sp4): 58.9 % __ LA A2 area: 20.4 cm2 RA Volume: RA Volume Index: LA A4 area: 18.1 cm2 30.0 ml 15.5 ml/m2 LA length (vol): 5.5 cm LA vol: 57.5 ml LA vol index: 29.6 ml/m2 Doppler Measurements Calculations MV dec time: MV V2 max: E/E' lat: 10.0 MV P1/2t max jere: 0.27 sec 108.6 cm/sec E/E' med: 11.6 111.5 cm/sec MV max PG: MV P1/2t: 62.6 msec 45.0 mmHg MVA(P1/2t): 3.5 cm2 MV V2 mean: MV dec slope: 73.8 cm/sec MV mean P.8 cm/sec2 2.5 mmHg MV V2 VTI: 37.6 cm MVA(VTI): 2.5 cm2 __ Ao V2 max: LV V1 max PG: MR max jere: TV max P.0 mmHg 144.4 cm/sec 4.7 mmHg 334.3 cm/sec Ao max PG: LV V1 mean PG: MR max P.3 mmHg 2.6 mmHg 44.7 mmHg Ao mean PG: LV V1 mean: 4.6 mmHg 75.7 cm/sec Ao V2 mean: LV V1 VTI: 28.0 cm 101.7 cm/sec Ao V2 VTI: 34.9 cm TOMMY(I,D): 2.7 cm2 TOMMY(V,D): 2.6 cm2 __ TR max jere: 378.6 cm/sec TR max P.3 mmHg RAP systole: 5.0 mmHg Transcribed By: SCV Performed At: 12/26/23 1525 Signed By: Yumiko Ocampo MD, [facility] 12/27/23 1621 Normal [facility] Epithelial cells.squamous [# /area] in Urine sediment by Automated countOrdered By: Susanne Cannon on 12-26-2023 Epithelial cells.squamous Auto (Urine sed) [#/Area] 1-2 [HPF] 0-2 [facility] Erythrocyte distribution wid th [Ratio] by Automated countOrdered By: Susanne Cannon on 12-26-2023 Erythrocyte distribution width (RBC) [Ratio] 18.7 % High 11.9-15.3 [facility] Comment on above: Performed By: #### C K, PT, PTT, BMP, CBC, HS TROP, BNP #### [facility] [address] Erythrocytes [#/area] in Uri ne sediment by Automated countOrdered By: Susanne Cannon on 12-26-2023 RBC Auto (Urine sed) [#/Area] 1-2 [HPF] 0-4 [facility] Erythrocytes [#/volume] in B lood by Automated countOrdered By: Susanne Cannon on 12-26-2023 RBC (Bld) [#/Vol] 4.10 10*6/uL Normal 3.60-5.00 [facility] Comment on above: Performed By: #### C K, PT, PTT, BMP, CBC, HS TROP, BNP #### [facility] [address] Glucose Poct Glucometerson 0 12-26-2023 Glucose [Mass/Vol] 398 mg/dL Normal [facility] Comment on above: Result Comment: [place] om Glucose Reference Range is dependent on time and content of last meal. Glucose of more than 200 mg/dL in a nonstressed, ambulatory subject supports the diagnosis of Diabetes Mellitus. PERFORMED BY: [place] [address] PATHOLOGIST SAT ACT INSTRUCTOR ARELY ROSSI M.D. Performed By: #### G MAHAD #### Point of Care testing , Glucose [Mass/volume] in Ser um or PlasmaOrdered By: Susanne Cannon on 12-26-2023 Glucose [Mass/Vol] 91 mg/dL Normal 70-100 [facility] Comment on above: ADA recommended refe rence rangeRandom Glucose Reference Range is dependent on time and content of last meal. Glucose of more than 200 mg/dL in a nonstressed, ambulatory subject supports the diagnosis of Diabetes Mellitus. Result Comment: [place] om Glucose Reference Range is dependent on time and content of last meal. Glucose of more than 200 mg/dL in a nonstressed, ambulatory subject supports the diagnosis of Diabetes Mellitus. ADA recommended reference range Performed By: #### C K, PT, PTT, BMP, CBC, HS TROP, BNP #### [facility] [address] [place] [id number] [facility] Glucose [Mass/volume] in Uri ne by Test stripOrdered By: Susanne Cannon on 12-26-2023 Glucose Test strip (U) [Mass/Vol] Normal mg/dL Normal [facility] Hematocrit [Volume Fraction] of Blood by Automated countOrdered By: Susanne Cannon on 12-26-2023 Hematocrit (Bld) [Volume fraction] 36.4 % Normal 34.0-46.4 [facility] Comment on above: Performed By: #### C K, PT, PTT, BMP, CBC, HS TROP, BNP #### [facility] [address] Hemoglobin Test strip Ql (U) Ordered By: Susanne Royce on 12-26-2023 Hemoglobin Ql (U) Negative Negative [facility] Hemoglobin [Mass/volume] in BloodOrdered By: Susanne Cannon on 12-26-2023 Hemoglobin (Bld) [Mass/Vol] 11.6 g/dL Low 11.8-15.4 [facility] Comment on above: Performed By: #### C K, PT, PTT, BMP, CBC, HS TROP, BNP #### [facility] [address] Hyaline casts [#/area] in Ur ine sediment by Automated countOrdered By: Susanne Cannon on 12-26-2023 Hyaline casts Auto (Urine sed) [#/Area] None [LPF] 0-8 [facility] INR in Platelet poor plasma by Coagulation assayOrdered By: Susanne Cannon on 12-26-2023 INR Coag (PPP) [Relative time] 1.0 {INR} Normal [facility] Comment on above: INR Therapeutic Rang e A) Pre- and Peroperative OAT started two weeks before surgery. NOT HIP SURGERY: 1.5 - 2.5 HIP SURGERY: 2 - 3B) Primary and secondary prevention of venous THROMBOSIS: 2 - 3C) Active venous thrombosis, pulmonary embolismand prevention of recurrent venous thrombosis: 2 - 3D) Prevention of arterial thromboembolismincluding patients with mechanical heart valves: 3 - 4.5 Result Comment: INR Therapeutic Range A) Pre- and Peroperative OAT started two weeks before surgery. NOT HIP SURGERY: 1.5 - 2.5 HIP SURGERY: 2 - 3 B) Primary and secondary prevention of venous THROMBOSIS: 2 - 3 C) Active venous thrombosis, pulmonary embolism and prevention of recurrent venous thrombosis: 2 - 3 D) Prevention of arterial thromboembolism including patients with mechanical heart valves: 3 - 4.5 Performed By: #### C K, PT, PTT, BMP, CBC, HS TROP, BNP #### [facility] [address] Ketones [Presence] in Urine by Test stripOrdered By: Susanne Cannon on 12-26-2023 Ketones Ql (U) Negative Normal Negative [facility] Comment on above: Order Comment: Name Collection Type:: Voided Performed By: #### A DDONUAPLUS #### [facility] [address] [place] [address] [place] Rigoberto 12-26-2023 L Specimen: [id number] Received: 01/01/24 Status: SOUCesar Req Num: [id number] Spec Type: Cytology Subm Dr: Monroe Selby MD Tissues: A PLEURAL FLUID (R) Procedures: HE/2, Gross/Micro L4, WEST, AE1-AE3, CALRETININ, CD68, CK5 6, CK20, CK 7, ER, D2-40, Cyto Prepstain, MOC31, PAX-8, GATA3, PAPSTN Age/ Patient Sex Location Account Attending Physician Krista Ly 83/F [id number] Trent Duarte DO SPEC NUM: [id number] RECD: 01/01/24 STATUS: LAUREN REMisty NUM: [id number] AIDEN: 12/26/[address]: Monroe Selby MD ENTERED: 01/01/[address] [facility] [address]: SPEC TYPE: Cytology DEPT: CNG ENTERED BY: [id number] RECV BY: [id number] ORDERED: HE/2, Gross/Micro L4, WEST, AE1-AE3, CALRETININ, CD68, CK5 6, CK20, CK 7, ER, D2-40, Cyto Prepstain, MOC31, PAX-8, GATA3, PAPSTN ORDERED: HE/2, Gross/Micro L4, WEST, AE1-AE3, CALRETININ, CD68, CK5 6, CK20, CK 7, ER, D2-40, Cyto Prepstain, MOC31, PAX-8, GATA3, PAPSTN Pathological Diagnosis Right pleural effusion: Scattered atypical cells are noted, favor reactive mesothelial cells. Clinical Information 83 yo female H/O Breast Cancer, R Pleural Effusion Gross Description Received unfixed is 800 ml yellow hazy fluid for cytology said to have been obtained as Thoracentesis/Pleural fluid. ThinPrep and cell block preparations are prepared for microscopic examination. (CC/ak) CPT Codes 53261 Specimen: [id number] Received: 01/01/24 Status: LAUREN Ash Num: [id number] Spec Type: Cytology Subm Dr: Monroe Selby MD Tissues: A PLEURAL FLUID (R) Procedures: HE/2, Gross/Micro L4, WEST, AE1-AE3, CALRETININ, CD68, CK5 6, CK20, CK 7, ER, D2-40, Cyto Prepstain, MOC31, PAX-8, GATA3, PAPSTN Patient: Krista Ly [id number] (Continued) Signed (signature on file) Mega Nolasco MD 01/08/24 1638 Normal [facility] Leukocyte esterase [Presence ] in Urine by Test stripOrdered By: Susanne Cannon on 12-26-2023 Leukocyte esterase Test strip Ql (U) 2+ High Negative [facility] Comment on above: Order Comment: Name Collection Type:: Voided Performed By: #### A DDONUAPLUS #### [facility] [address] [place] [address] [place] Leukocytes [#/area] in Urine sediment by Automated countOrdered By: Susanne Cannon on 12-26-2023 WBC Auto (Urine sed) [#/Area] 3-4 [HPF] 0-4 [facility] Leukocytes [#/volume] correc nancy for nucleated erythrocytes in Blood by Automated counOrdered By: Susanne Cannon on 12-26-2023 WBC corrected for nucl RBC Auto (Bld) [#/Vol] 8.0 10*3/uL 3.8-11.6 [facility] Leukocytes [#/volume] in Blo od by Automated countOrdered By: Susanne Cannon on 12-26-2023 WBC (Bld) [#/Vol] 8.0 10*3/uL Normal 3.8-11.6 [facility] Comment on above: Performed By: #### C K, PT, PTT, BMP, CBC, HS TROP, BNP #### [facility] [address] [place] [address] [place] Lymphocytes [#/volume] in Bl ood by Automated countOrdered By: Susanne Cannon on 12-26-2023 Lymphocytes (Bld) [#/Vol] 0.6 10*3/uL Low 1.00-4.8 [facility] Comment on above: Performed By: #### C K, PT, PTT, BMP, CBC, HS TROP, BNP #### [facility] [address] [place] [address] [place] Lymphocytes/100 leukocytes i n Blood by Automated countOrdered By: Susanne Cannon on 12-26-2023 Lymphocytes/100 WBC (Bld) 7.6 % Normal . [facility] Comment on above: Performed By: #### C K, PT, PTT, BMP, CBC, HS TROP, BNP #### [address] MCH [Entitic mass] by Automa nancy countOrdered By: Susanne Cannon on 12-26-2023 MCH (RBC) [Entitic mass] 28.4 pg Normal 24.7-34.3 [facility] Comment on above: Performed By: #### C K, PT, PTT, BMP, CBC, HS TROP, BNP #### [address] MCHC Auto (RBC) [Mass/Vol]Or dered By: Susanne Cannon on 12-26-2023 MCHC (RBC) [Mass/Vol] 31.9 g/dL Low 32.0-35.0 [facility] MCV [Entitic volume] by Auto mated countOrdered By: Susanne Cannon on 12-26-2023 MCV (RBC) [Entitic vol] 88.9 fL Normal 80-100 [facility] Comment on above: Performed By: #### C K, PT, PTT, BMP, CBC, HS TROP, BNP #### [address] Monocyte distribution width [Entitic volume] in Blood by AutomatedOrdered By: Susanne Cannon on 12-26-2023 Monocyte distribution width Auto (Bld) [Entitic vol] 17.57 % 0.00-20.00 [facility] Mucus [Presence] in Urine by AutomatedOrdered By: Susanne Cannon on 12-26-2023 Mucus Auto Ql (U) Rare [LPF] [facility] Neutrophils [#/volume] in Bl ood by Automated countOrdered By: Susanne Cannon on 12-26-2023 Neutrophils (Bld) [#/Vol] 7.0 10*3/uL Normal 1.8-7.7 [facility] Comment on above: Performed By: #### C K, PT, PTT, BMP, CBC, HS TROP, BNP #### [facility] [address] [place] [address] Nitrite Test strip Ql (U)Ord ered By: Susanne Cannon on 12-26-2023 Nitrite Ql (U) Negative Negative [facility] No Panel InformationOrdered By: Susanne Cannon on 12-26-2023 Estimated GFR (CKD-EPI) 43.721 mL/Min [facility] Creatinine Clearance (Chem 38.03 [facility] Nucleated erythrocytes [Pres ence] in Blood by Automated countOrdered By: Susanne Cannon on 12-26-2023 Nucleated RBC Auto Ql (Bld) 0.0 /100{WBC} 0-0.5 [facility] Partial Thromboplastin Timeo n 12-26-2023 aPTT Coag (Bld) [Time] 32.1 s Normal 25.1-36.5 [facility] Comment on above: Result Comment: A he matocrit value greater than 55% may lead to inaccurate results in coagulation testing. Patients having hematocrit values >55% require a special collection tube for coagulation studies. Please contact the laboratory at [phone] for redraw instructions. PERFORMED BY: [place] [address] PATHOLOGIST SAT ACT INSTRUCTOR ARELY ROSSI M.D. Performed By: #### M G, BMP #### [facility] [address] [place] [address] [place] Platelet mean volume [Entiti c volume] in Blood by Automated countOrdered By: Susanne Cannon on 12-26-2023 Platelet mean volume (Bld) [Entitic vol] 8.5 fL Normal 6.3-10.7 [facility] Comment on above: Performed By: #### C K, PT, PTT, BMP, CBC, HS TROP, BNP #### [facility] [address] [place] [address] [place] Platelets [#/volume] in Bloo d by Automated countOrdered By: Susanne Cannon on 12-26-2023 Platelets (Bld) [#/Vol] 130 10*3/uL Low 150-450 [facility] Comment on above: Performed By: #### C K, PT, PTT, BMP, CBC, HS TROP, BNP #### [facility] [address] [place] [address] [place] Potassium [Moles/volume] in Serum or PlasmaOrdered By: Susanne Cannon on 12-26-2023 Potassium [Moles/Vol] 4.5 mmol/L Normal 3.5-5.1 [facility] Comment on above: Performed By: #### C K, PT, PTT, BMP, CBC, HS TROP, BNP #### [facility] [address] Protein Test strip (U) [Mass /Vol]Ordered By: Susanne Cannon on 12-26-2023 Protein (U) [Mass/Vol] Negative Negative [facility] [place] [facility] Prothrombin time (PT)Ordered By: Susanne Cannon on 12-26-2023 PT Coag (PPP) [Time] 11.3 s Normal 9.0-12.9 [facility] Comment on above: A hematocrit value g reater than 55% may lead to inaccurate results in coagulation testing. Patients having hematocrit values >55% require a special collection tube for coagulation studies. Please contact the laboratory at [phone] for redraw instructions. Result Comment: A he matocrit value greater than 55% may lead to inaccurate results in coagulation testing. Patients having hematocrit values >55% require a special collection tube for coagulation studies. Please contact the laboratory at [phone] for redraw instructions. Performed By: #### C K, PT, PTT, BMP, CBC, HS TROP, BNP #### [facility] [address] [place] [id number] [place] Serum or plasma anion gap de terminationOrdered By: Susanne Cannon on 12-26-2023 Anion gap [Moles/Vol] 11.2 mmol/L Normal 6.0-15.0 [facility] [place] [facility] Comment on above: Performed By: #### C K, PT, PTT, BMP, CBC, HS TROP, BNP #### [facility] [address] [place] [address] [place] Sodium [Moles/volume] in Ser um or PlasmaOrdered By: Susanne Cannon on 12-26-2023 Sodium [Moles/Vol] 145 mmol/L Normal 136-145 [facility] Comment on above: Performed By: #### C K, PT, PTT, BMP, CBC, HS TROP, BNP #### [address] Specific gravity Test strip (U) [Rel density]Ordered By: Susanne Cannon on 12-26-2023 Specific gravity (U) [Rel density] 1.009 1.001-1.03 0 [facility] Troponin I High Sensitivityo n 12-26-2023 Troponin I High Sensitivity 8.3 pg/mL Normal 0.0-15.0 [facility] Comment on above: Result Comment: PERF ORMED BY: [address] [place] [address] PATHOLOGIST SAT ACT INSTRUCTOR ARELY ROSSI M.D. Performed By: #### C K, PT, PTT, BMP, CBC, HS TROP, BNP #### [address] Troponin I.cardiac [Mass/vol ume] in Serum or Plasma by Detection limit <= 0.01 ng/Ordered By: Susanne Cannon on 12-26-2023 Troponin I.cardiac DL <= 0.01 ng/mL [Mass/Vol] 8.3 pg/mL 0.0-15.0 [facility] Urea nitrogen [Mass/volume] in Serum or PlasmaOrdered By: Susanne Cannon on 12-26-2023 Urea nitrogen [Mass/Vol] 26 mg/dL High 7-25 [facility] Comment on above: Performed By: #### C K, PT, PTT, BMP, CBC, HS TROP, BNP #### [address] Urine appearanceOrdered By: Susanne Cannon on 12-26-2023 Appearance (U) Clear Normal Clear [facility] Comment on above: Order Comment: Name Collection Type:: Voided Performed By: #### A DDONUAPLUS #### [address] [place] [address] [facility] Urobilinogen Test strip (U) [Mass/Vol]Ordered By: Susanne Cannon on 12-26-2023 Urobilinogen (U) [Mass/Vol] Normal mg/dL Normal [facility] XR chest 1V portableon 12-25 XR chest 1V portable [facility] [address] [place] [address] [place] [address] XRay Report Signed Patient: Krista Ly MR#: [id number] : 1940 Acct:[id number] Age/Sex: 83 / F ADM Date: 12/26/23 Loc: ER Room: Type: PRE ER Attending Dr: Copies to: Susanne Cannon DO Ordering Provider: Susanne Cannon DO Date of Service: 12/26/23 XR/XR chest 1V portable: Chest Pain XR chest 1V portable 12/26/2023 9:30 AM SIGNS AND SYMPTOMS: Shortness of breath PROTOCOL: Frontal radiograph the chest COMPARISON: None FINDINGS: The trachea is midline. Atherosclerotic changes are noted in the thoracic aorta. There is cardiomegaly. Pleural parenchymal opacities are noted in the lung bases, right greater than left. There is interstitial prominence and perihilar vascular prominence suggests heart failure. Degenerative changes are noted in the shoulders and thoracic spine. The bony thorax is intact. XR/XR chest 1V portable IMPRESSION: There is cardiomegaly. Pleural parenchymal opacities are noted in the lung bases, right greater than left. There is interstitial prominence and perihilar vascular prominence suggests heart failure. Impression dictated by: Antoine Craig M.D.12/26/2023 10:00 AM Dictation Location: [place] [address] Transcribed By: [facility] 12/26/23 1000 Dictated By: Antoine Craig II, MD 12/26/23 0959 Signed By: 12/26/23 1000 Normal [facility] pH of Urine by Test stripOrd ered By: Susanne Cannon on 12-26-2023 pH (U) 6.0 [pH] Normal 5.0-9.0 [facility] Comment on above: Order Comment: Name Collection Type:: Voided Performed By: #### A DDONUAPLUS #### [facility] [address] CBC AND AUTO DIFFon 12-25-19 24 ABSOLUTE BASOPHIL 0.0 X10E9/L Normal 0.0-0.2 [facility] Comment on above: Performed By: #### Raul BERKOWITZ DIFFA, #### [facility] ([id number]) [address] [place] [address] ABSOLUTE NEUTROPHIL 5.7 X10E9/L Normal 1.5-6.6 [facility] Comment on above: Performed By: #### Raul BERKOWITZ DIFFA, #### [facility] ([id number]) [address] [place] [address]80 Basophils/100 WBC (Bld) 0.6 % Normal [facility] Comment on above: Performed By: #### Raul BERKOWITZ, DIFFA, #### [facility] ([id number]) [address] [place] [address] Eosinophils (Bld) [#/Vol] 0.1 10*3/uL Normal 0.0-0.[address] [facility] Comment on above: Performed By: #### Raul BERKOWITZ DIFFA, #### [facility] ([id number]) [address] [place] [address] Eosinophils/100 WBC (Bld) 1.7 % Normal [facility] Comment on above: Performed By: #### Raul BERKOWITZ, DIFFA, #### [facility] ([id number]) [address] [place] [address] Erythrocyte distribution width (RBC) [Ratio] 19.1 % High 11.5-15.[address] [facility] Comment on above: Performed By: #### Raul BERKOWITZ DIFFA, #### [facility] ([id number]) [address] [place] [address] Hematocrit (Bld) [Volume fraction] 35.0 % Normal 35-[address] [facility] Comment on above: Performed By: #### Raul BERKOWITZ, DIFFA, #### [facility] ([id number]) [address] [place] [address] 39277 Hemoglobin (Bld) [Mass/Vol] 11.1 g/dL Low 11.7-15.[address] [facility] Comment on above: Performed By: #### Raul BERKOWITZ DIFFA, #### [facility] ([id number]) [address] [place] [address] Lymphocytes (Bld) [#/Vol] 0.7 10*3/uL Low 1.0-3.[address] [facility] Comment on above: Performed By: #### Raul BERKOWITZ DIFFA, #### [facility] ([id number]) [address] [place] [address] Lymphocytes/100 WBC (Bld) 10.1 % Normal [facility] Comment on above: Performed By: #### Raul BERKOWITZ DIFFA, #### [facility] ([id number]) [address] [place] [address]648 MCH (RBC) [Entitic mass] 28.8 pg Normal 27-[address] [facility] Comment on above: Performed By: #### Raul BERKOWITZ, DIFFA, #### [facility] ([id number]) [address] [place] [address]29 MCHC (RBC) [Mass/Vol] 31.6 g/dL Low 32-36 [facility] Comment on above: Performed By: #### Raul BERKOWITZ DIFFA, #### [facility] ([id number]) [address] [place] [address]96 MCV (RBC) [Entitic vol] 91 fL Normal 80-[address] [facility] Comment on above: Performed By: #### Raul BERKOWITZ DIFFA, #### [facility] ([id number]) [address] [place] [address] 41910 Monocytes (Bld) [#/Vol] 0.4 10*3/uL Normal 0-0.[address] [facility] Comment on above: Performed By: #### Raul BERKOWITZ DIFFA, #### [facility] ([id number]) [address] [place] [address] 27002 Monocytes/100 WBC (Bld) 5.6 % Normal [facility] Comment on above: Performed By: #### Raul BERKOWITZ DIFFKlaus, #### [facility] ([id number]) [address] [place] [address] 51849 MPV PLATELET CLUMPS PREC LUDE COUNT Normal 7-[address] [facility] Comment on above: Performed By: #### Raul BERKOWITZ DIFFA, #### [facility] ([id number]) [address] [place] [address] 98962 Neutrophils/100 WBC (Bld) 82.0 % Normal [facility] Comment on above: Performed By: #### Raul BERKOWITZ DIFFA, #### [facility] ([id number]) [address] [place] [address]156 PLATELET COUNT ESTIMATE OF PLATELET S, NORMAL Normal 150-[address] [facility] Comment on above: Result Comment: PLAT ELET CLUMPS PRECLUDE COUNT Performed By: #### Raul BERKOWITZ DIFFA, #### [facility] ([id number]) [address] [place] [address] 50114 RBC COUNT 3.85 X10E12/L Normal 3.80-5.[address] [facility] Comment on above: Performed By: #### C WOO DIFFKlaus, 12085-6 #### [facility] ([id number]) [address] [place] [address] WBC (Bld) [#/Vol] 7.0 10*3/uL Normal 4.0-11.0 [facility] Comment on above: Performed By: #### REYMUNDO CRAIN, 95993-1 #### [facility] ([id number]) [address] [place] [address] 79423 COMPREHENSIVE METABOLIC PANE Rigoberto 12-25-2023 Albumin [Mass/Vol] 3.7 g/dL Normal 3.2-5.3 [facility] Comment on above: Performed By: #### C REYMUNDO BERKOWITZ, 92529-5 #### [facility] ([id number]) [address] [place] [address]10 ALP [Catalytic activity/Vol] 75 U/L Normal 39-[address] [facility] Comment on above: Performed By: #### CARMELITA CRAINA, 22705-6 #### [facility] ([id number]) [address] [place] [address] 97110 ALT [Catalytic activity/Vol] 24 U/L Normal 0-[address] [facility] Comment on above: Performed By: #### CARMELITA CRAINA, 69625-6 #### [facility] [facility] ([id number]) [address] [place] [address] [place] [address] Anion gap [Moles/Vol] 11 mmol/L Normal 5-15 [facility] Comment on above: Performed By: #### REYMUNDO CRAIN, 37271-1 #### [facility] ([id number]) [address] [place] [address] 25503 AST [Catalytic activity/Vol] 20 U/L Normal 0-[address] [facility] Comment on above: Performed By: #### C BC, DIFFA, #### [facility] ([id number]) [address] [place] [address] 82644 Bilirubin [Mass/Vol] 0.6 mg/dL Normal 0.3-1.2 [facility] Comment on above: Performed By: #### REYMUNDO CRAIN, #### [facility] ([id number]) [address] [place] [address] 15831 Calcium [Mass/Vol] 9.1 mg/dL Normal 8.5-10.5 [facility] Comment on above: Performed By: #### REYMUNDO CRAIN, #### [facility] ([id number]) [address] [place] [address] 92670 Chloride [Moles/Vol] 99 mmol/L Normal 98-109 [facility] Comment on above: Performed By: #### REYMUNDO CRAIN, #### [facility] ([id number]) [address] [place] [address] 43505 CO2 [Moles/Vol] 34 mmol/L High 22-[address] [facility] Comment on above: Performed By: #### REYMUNDO CRAIN, 38872-4 #### [facility] ([id number]) [address] [place] [address] 14540 Creatinine [Mass/Vol] 1.19 mg/dL High 0.40-1.00 [facility] Comment on above: Result Comment: METH OD TRACEABLE TO IDMS STANDARD Performed By: #### REYMUNDO CRAIN, #### [facility] ([id number]) [address] [place] [address] 71551 GFR/1.73 sq M.predicted among non-blacks MDRD (S/P/Bld) [Vol rate/Area] 46 mL/min/{1.73_m2} Low >[address] [facility] Comment on above: Result Comment: Reported eGFR is based on the CKD-EPI 2020 equation that does not use a race coefficient. Performed By: #### REYMUNDO CRAIN, #### [facility] ([id number]) [address] [place] [address] 54733 Glucose [Mass/Vol] 148 mg/dL High 65-99 [facility] Comment on above: Performed By: #### REYMUNDO CRAIN, #### [facility] ([id number]) [address] [place] [address] 49257 Potassium [Moles/Vol] 3.5 mmol/L Normal 3.5-5.0 [facility] Comment on above: Performed By: #### REYMUNDO CRAIN, #### [facility] ([id number]) [address] [place] [address] 00519 Protein [Mass/Vol] 6.5 g/dL Normal 6.0-8.0 [facility] Comment on above: Performed By: #### REYMUNDO CRAIN, 51929-3 #### [facility] ([id number]) [address] [place] [address] 51434 Sodium [Moles/Vol] 144 mmol/L Normal 134-146 [facility] Comment on above: Performed By: #### REYMUNDO CRAIN, 53803-9 #### [facility] ([id number]) [address] [place] [address] 76886 Urea nitrogen [Mass/Vol] 26 mg/dL Normal 5-[address] [facility] Comment on above: Performed By: #### REYMUNDO CRAIN, #### [facility] ([id number]) [address] [place] [address] 67407 Creatinine (U) [Mass/Vol]on 12-25-2023 URINE CREATININE,RDM 128.92 mg/dL Normal [facility] Comment on above: Performed By: #### REYMUNDO CRAIN, 21143-5 #### [facility] ([id number]) [address] [place] [address] 64973 HGB A1C (GLYCO-HGB)on 2023 Glucose [Mass/Vol] 146 mg/dL Normal [facility] Comment on above: Performed By: #### REYMUNDO CRAIN, 20884-5 #### [facility] ([id number]) [address] [place] [address] 11242 HbA1c (Bld) [Mass fraction] 6.7 % High 4.4-5.[address] [facility] Comment on above: Result Comment: NOTE ADA Guidelines Result HgbA1c Normal : less than 5.7 % Prediabetes : 5.7 % to 6.4 % Diabetes : > 6.4 % Use with caution in patients with abnormal hemoglobin variants as the half-life of red blood cells and in vivo glycation rates are affected. Performed By: #### REYMUNDO CRAIN, 04683-8 #### [facility] ([id number]) [address] [place] [address] 00350 Protein (U) [Mass/Vol]on RANDOM URINE PROTEIN 360 mg/L High <120 [facility] Comment on above: Performed By: #### REYMUNDO CRAIN, 27511-0 #### [facility] ([id number]) [address] [place] [address] 42491 Riboflavin [Moles/Vol]on VITAMIN B2 92 nmol/L High 5-[address] [facility] Comment on above: Result Comment: NOTE INTERPRETIVE INFORMATION: Vitamin B2, Plasma This test was developed and its performance characteristics determined by [facility]. It has not been cleared or approved by the US Food and Drug Administration. This test was performed in a CLIA certified laboratory and is intended for clinical purposes. Performed By: [facility] [address] [place] [address] Decator Operator: Arnold Henson MD, PhD CLIA Number: [id number] Performed By: #### REYMUNDO CRAIN, 45944-4 #### [facility] ([id number]) [address] [place] [address] VITAMIN B12on 12-25-2023 Cobalamin (Vitamin B12) [Mass/Vol] 328 pg/mL Normal 180-[address] [facility] Comment on above: Performed By: #### REYMUNDO CRAIN, 01636-8 #### [facility] ([id number]) [address] [place] [address] 77911 Vitamin B6 and metabolite pa nelon 12-25-2023 Pyridoxal 5-Phosphate (PLP), P 3 mcg/L Low 5-[address] [facility] Comment on above: Result Comment: NOTE ADDITIONAL INFORMATION This test was developed and its performance characteristics determined by [facility] in a manner consistent with CLIA requirements. This test has not been cleared or approved by the U.S. Food and Drug Administration. Performed By: #### REYMUNDO CRAIN, 29891-5 #### [facility] ([id number]) [address] [place] [address] 05353 Pyridoxic Acid (PA), P 10 mcg/L Normal 3-30 [facility] Comment on above: Result Comment: NOTE ADDITIONAL INFORMATION This test was developed and its performance characteristics determined by [facility] in a manner consistent with CLIA requirements. This test has not been cleared or approved by the U.S. Food and Drug Administration. Test Performed by: [facility] [address] [place] [address] Automotive Diagnostic Technician: Gab Vee Ph.D.; CLIA# [id number] Performed By: #### C REYMUNDO BERKOWITZ, 05679-2 #### [facility] ([id number]) [address] [place] [address], [place] [address] XR CHEST 2 VWSon 12-25-2023 XR CHEST 2 VWS XR CHEST 2 VWS XR CHEST 2 VWS HISTORY: Shortness of breath, tobacco use COMPARISON: Chest x-ray 10/19/2023 and CTA chest 10/05/2023 FINDINGS: Interval removal of left-sided port catheter. Stable enlargement of the cardiomediastinal silhouette. Interval increase in size and conspicuity of a right pleural effusion, possibly partially loculated. Superimposed infection is not excluded. No superimposed significant pulmonary edema, left pleural effusion or pneumothorax. Degenerative changes in the bilateral shoulders. Thoracic kyphosis without suggestion of pathologic fracture by technique. IMPRESSION: * Increase in size of a moderate right pleural effusion. Superimposed adjacent parenchymal disease or infection is not excluded. * Stable cardiomegaly. IBill have personally reviewed the image(s) and agree with and/or edited the report Finalized by Bill Segura on 12/25/2023 3:[address] [facility] 36on 12-13-[address] Martinez- patient's stress test and echo were ok. Follow up in 4-6 months. Patient asked what can be done for her SOB. I told her she should make an apt to discuss. Dr. Schmitt is not here again until 12/30 and patient did not want to wait that long. Made her an apt to see Sophie Collins CNP on 12/18. Normal [facility] Office Visiton 12-03-2023 Follow-up visit [id number] Sophie Ly 1940 F Date Provider Department Center 12/03/2023 PAUL CHAUDHARY CARD [facility] No family history on file Level of Service:30014 NE OFFICE/OUTPATIENT ESTABLISHED MOD MDM 30 MIN Normal [facility] DEXA SCAN CENTRAL SKELETALon 11-27-2023 DEXA SCAN CENTRAL SKELETAL DEXA SCAN CENTRAL SKELETAL CLINICAL INFORMATION: 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, estrogen receptor positive ([facility]); High risk medication use. , Post menopausal, TECHNIQUE: Dual X-ray Absorptiometry (DXA) was performed. COMPARISON: No relevant prior studies available. FINDINGS: LUMBAR SPINE (L1-L4): BMD is 1.079 gm/cm2. T-score is -0.9. LEFT FEMORAL NECK: BMD is 0.674 gm/cm2. T-score is -2.6. LEFT TOTAL FEMUR: BMD is 0.746 gm/cm2. T-score is -2.1. RIGHT FEMORAL NECK: BMD is 0.594 gm/cm2. T-score is -3.2. RIGHT TOTAL FEMUR: BMD is 0.757 gm/cm2. T-score is -2.0. The estimated 10-year probability for a major osteoporotic fracture (utilizing FRAX) is 33.4% and for a hip fracture is 13.3%. IMPRESSION: The exam is considered to be osteoporotic by the National Osteoporosis Foundation guidelines. Recommend consideration for initiation of therapy. WHO CLASSIFICATION: Normal: T-score -1.0 or above Osteopenia: T-score -1.1 to < 2.5 Osteoporosis: T-score -2.5 or lower Secondary causes of bone loss should be evaluated if clinically indicated since the etiology of low BMD cannot be determined by BMD measurement alone. The current National Osteoporosis Foundation guide recommends treating patients with FRAX ten year risk scores of greater than or equal to 3% for hip fracture or greater than or equal to 20% for major osteoporotic fracture, to reduce their fracture risk. Finalized by Jose Eduardo Ramirez MD on 11/27/2023 2:[address] [facility] Telephoneon 11-16-2023 Telephone [id number] Sophie Ly L 1940 F Date Provider Department Center 11/16/2023 CHRISSY VALLE No family history on file Normal [facility] XR SPINE CERVICAL 3 VWS OR L ESSon 11-14-2023 XR SPINE CERVICAL 3 VWS OR LESS XR SPINE CERVICAL 3 VWS OR LESS History: Diabetic peripheral neuropathy ([facility]) Exam/Technique: AP, lateral and open-mouth odontoid view of the cervical spine Comparison: No relevant prior studies available. Findings: Odontoid process is intact. Vertebral body heights are well-preserved. There is mild grade 1 anterolisthesis of C3 on C4 with moderate bilateral facet joint disease from C3-C4 through C5-C6. There is moderate degenerative disc disease at C5-C6. Paravertebral soft tissue is unremarkable. IMPRESSION: There is no gross acute osseous injury. There are multilevel disc and facet joint disease from C3-C4 through C5-C6. Finalized by Soco Gan MD on 11/14/2023 6:[address] [facility] MAMM SCREENING UNILAT LT W C towel sorter 2023 MAMM SCREENING UNILAT LT W CAD MAMM SCREENING UNILAT LT W CAD EXAM: MAMM SCREENING UNILAT LT W CAD, 2023 11:33 AM CLINICAL INDICATIONS: Screening, history of right breast mastectomy COMPARISON: 10/30/2022 TECHNIQUE: Left digital tomosynthesis MLO and CC views of the breasts were obtained, with creation of synthetic 2D views. Computer aided detection was utilized. FINDINGS: The breasts are heterogeneously dense, which may obscure small masses. Postprocedural changes in the left breast. There are no suspicious masses, calcifications, or areas of architectural distortion. IMPRESSION: No mammographic evidence of malignancy. BI-RADS: BI-RADS 2 - Benign Recommendation: Follow up per ACR recommendations or as clinically indicated. A letter of notification will be sent to the patient regarding the results. Finalized by Nacho Haywood MD on 2023 2:46 PM 2 c FU ACR Normal [facility] CBC AND AUTO DIFFon 10-20-19 24 ABSOLUTE BASOPHIL 0.0 X10E9/L Normal 0.0-0.2 [facility] Comment on above: Performed By: #### 3 0934-4 #### [facility] ([id number]) [address] [place] [address], [place] [address] ABSOLUTE NEUTROPHIL 5.5 X10E9/L Normal 1.5-6.6 [facility] Comment on above: Performed By: #### 3 0934-4 #### [facility] ([id number]) [address] [place] [address] 61884 Basophils/100 WBC (Bld) 0.4 % Normal [facility] Comment on above: Performed By: #### 3 0934-4 #### [facility] ([id number]) [address] [place] [address] 65818 Eosinophils (Bld) [#/Vol] 0.1 10*3/uL Normal 0.0-0.[address] [facility] Comment on above: Performed By: #### 3 0934-4 #### [facility] ([id number]) [address] [place] [address] 91772 Eosinophils/100 WBC (Bld) 1.1 % Normal [facility] Comment on above: Performed By: #### 3 0934-4 #### [facility] ([id number]) [address] [place] [address] 93278 Erythrocyte distribution width (RBC) [Ratio] 18.3 % High 11.5-15.[address] [facility] Comment on above: Performed By: #### 3 0934-4 #### [facility] ([id number]) [address] [place] [address] 37107 Hematocrit (Bld) [Volume fraction] 31.4 % Low 35-[address] [facility] Comment on above: Performed By: #### 3 0934-4 #### [facility] ([id number]) [address] [place] [address] 05228 Hemoglobin (Bld) [Mass/Vol] 10.4 g/dL Low 11.7-15.[address] [facility] Comment on above: Performed By: #### 3 0934-4 #### [facility] ([id number]) [address] [place] [address] 63264 Lymphocytes (Bld) [#/Vol] 1.0 10*3/uL Normal 1.0-3.[address] [facility] Comment on above: Performed By: #### 3 0934-4 #### [facility] ([id number]) [address] [place] [address] 59620 Lymphocytes/100 WBC (Bld) 14.0 % Normal [facility] Comment on above: Performed By: #### 3 0934-4 #### [facility] ([id number]) [address] [place] [address] 36611 MCH (RBC) [Entitic mass] 29.0 pg Normal 27-[address] [facility] Comment on above: Performed By: #### 3 0934-4 #### [facility] ([id number]) [address] [place] [address] 32467 MCHC (RBC) [Mass/Vol] 33.0 g/dL Normal 32-36 [facility] Comment on above: Performed By: #### 3 0934-4 #### [facility] ([id number]) [address] [place] [address] 96155 MCV (RBC) [Entitic vol] 88 fL Normal 80-[address] [facility] Comment on above: Performed By: #### 3 0934-4 #### [facility] ([id number]) [address] [place] [address] 27542 Monocytes (Bld) [#/Vol] 0.3 10*3/uL Normal 0-0.[address] [facility] Comment on above: Performed By: #### 3 0934-4 #### [facility] ([id number]) [address] [place] [address] 87622 Monocytes/100 WBC (Bld) 4.5 % Normal [facility] Comment on above: Performed By: #### 3 0934-4 #### [facility] ([id number]) [address] [place] [address] 88757 Neutrophils/100 WBC (Bld) 80.0 % Normal [facility] Comment on above: Performed By: #### 3 0934-4 #### [facility] ([id number]) [address] [place] [address] 36128 Platelet mean volume (Bld) [Entitic vol] 8.4 fL Normal 7-[address] [facility] Comment on above: Performed By: #### 3 0934-4 #### [facility] ([id number]) [address] [place] [address] 66730 Platelets (Bld) [#/Vol] 106 10*3/uL Low 150-[address] [facility] Comment on above: Performed By: #### 3 0934-4 #### [facility] ([id number]) [address] [place] [address] 14311 RBC COUNT 3.57 X10E12/L Low 3.80-5.[address] [facility] Comment on above: Performed By: #### 3 0934-4 #### [facility] ([id number]) [address] [place] [address] 72424 WBC (Bld) [#/Vol] 6.8 10*3/uL Normal 4.0-11.0 [facility] Comment on above: Performed By: #### 3 0934-4 #### [facility] ([id number]) [address] [place] [address] 57330 COMPREHENSIVE METABOLIC PANE [facility] 10-20-2023 Albumin [Mass/Vol] 2.9 g/dL Low 3.2-5.3 [facility] Comment on above: Performed By: #### 3 0934-4 #### [facility] ([id number]) [address] [place] [address] 40141 ALP [Catalytic activity/Vol] 71 U/L Normal 39-[address] [facility] Comment on above: Performed By: #### 3 0934-4 #### [facility] ([id number]) [address] [place] [address] [place] [address] ALT [Catalytic activity/Vol] 33 U/L High 0-[address] [facility] Comment on above: Performed By: #### 3 0934-4 #### [facility] ([id number]) [address] [place] [address] 11577 Anion gap [Moles/Vol] 6 mmol/L Normal 5-15 [facility] Comment on above: Performed By: #### 3 0934-4 #### [facility] ([id number]) [address] [place] [address] 12524 AST [Catalytic activity/Vol] 15 U/L Normal 0-[address] [facility] Comment on above: Performed By: #### 3 0934-4 #### [facility] ([id number]) [address] [place] [address] [place] [address] Bilirubin [Mass/Vol] 0.8 mg/dL Normal 0.3-1.2 [facility] Comment on above: Performed By: #### 3 0934-4 #### [facility] ([id number]) [address] [place] [address] 82001 Calcium [Mass/Vol] 8.4 mg/dL Low 8.5-10.5 [facility] Comment on above: Performed By: #### 3 0934-4 #### [facility] ([id number]) [address] [place] [address] [place] [address] Chloride [Moles/Vol] 104 mmol/L Normal 98-109 [facility] Comment on above: Performed By: #### 3 0934-4 #### [facility] ([id number]) [address] [place] [address], [place] [address] CO2 [Moles/Vol] 29 mmol/L Normal 22-[address] [facility] Comment on above: Performed By: #### 3 0934-4 #### [facility] ([id number]) [address] [place] [address] 52929 Creatinine [Mass/Vol] 1.24 mg/dL High 0.40-1.00 [facility] Comment on above: Result Comment: METH OD TRACEABLE TO IDMS STANDARD Performed By: #### 3 0934-4 #### [facility] ([id number]) [address] [place] [address] 59469 GFR/1.73 sq M.predicted among non-blacks MDRD (S/P/Bld) [Vol rate/Area] 44 mL/min/{1.73_m2} Low >[address] [facility] Comment on above: Result Comment: Reported eGFR is based on the CKD-EPI 2020 equation that does not use a race coefficient. Performed By: #### 3 0934-4 #### [facility] ([id number]) [address] [place] [address] 83421 Glucose [Mass/Vol] 187 mg/dL High 65-99 [facility] Comment on above: Performed By: #### 3 0934-4 #### [facility] ([id number]) [address] [place] [address] 54665 Potassium [Moles/Vol] 3.5 mmol/L Normal 3.5-5.0 [facility] Comment on above: Performed By: #### 3 0934-4 #### [facility] ([id number]) [address] [place] [address] 06362 Protein [Mass/Vol] 5.7 g/dL Low 6.0-8.0 [facility] Comment on above: Performed By: #### 3 0934-4 #### [facility] ([id number]) [address] [place] [address] 89608 Sodium [Moles/Vol] 139 mmol/L Normal 134-146 [facility] Comment on above: Performed By: #### 3 0934-4 #### [facility] ([id number]) [address] [place] [address] 15803 Urea nitrogen [Mass/Vol] 24 mg/dL Normal 5-[address] [facility] Comment on above: Performed By: #### 3 0934-4 #### [facility] ([id number]) [address] [place] [address] 18890 Glucose Glucometer (BldC) [M ass/Vol]on 10-20-2023 Glucose [Mass/Vol] 289 mg/dL High 65-99 [facility] MAGNESIUMon 10-20-2023 Magnesium [Mass/Vol] 1.8 mg/dL Normal 1.8-2.6 [facility] Comment on above: Performed By: #### C BC, DIFFA, 08935-0 #### [facility] ([id number]) [address] [place] [address] 37527 Beta hydroxybutyrate [Moles/ Vol]on 10-19-2023 BetaHydroxybutyrate 0.13 mmol/L Normal 0.02-0.27 [facility] Comment on above: Performed By: #### 3 0934-4 #### [facility] ([id number]) [address] [place] [address] 84325 CBC AND AUTO DIFFon 10-19-19 24 ABSOLUTE BASOPHIL 0.0 X10E9/L Normal 0.0-0.2 [facility] Comment on above: Performed By: #### C OVFLR #### [facility] ([id number]) [address] [place] [address] 35283 ABSOLUTE NEUTROPHIL 10.7 X10E9/L High 1.5-6.6 [facility] Comment on above: Performed By: #### C OVFLR #### [facility] ([id number]) [address] [place] [address] 46915 Basophils/100 WBC (Bld) 0.3 % Normal [facility] Comment on above: Performed By: #### C OVFLR #### [facility] ([id number]) [address] [place] [address] 05524 Eosinophils (Bld) [#/Vol] 0.1 10*3/uL Normal 0.0-0.[address] [facility] Comment on above: Performed By: #### C OVFLR #### [facility] ([id number]) [address] [place] [address] 25862 Eosinophils/100 WBC (Bld) 0.6 % Normal [facility] Comment on above: Performed By: #### C OVFLR #### [facility] ([id number]) [address] [place] [address] 91208 Erythrocyte distribution width (RBC) [Ratio] 18.0 % High 11.5-15.[address] [facility] Comment on above: Performed By: #### C OVFLR #### [facility] ([id number]) [address] [place] [address] 41050 Hematocrit (Bld) [Volume fraction] 35.7 % Normal 35-[address] [facility] Comment on above: Performed By: #### C OVFLR #### [facility] ([id number]) [address] [place] [address] 13773 Hemoglobin (Bld) [Mass/Vol] 11.6 g/dL Low 11.7-15.[address] [facility] Comment on above: Performed By: #### C OVFLR #### [facility] ([id number]) [address] [place] [address] 90677 Lymphocytes (Bld) [#/Vol] 0.8 10*3/uL Low 1.0-3.[address] [facility] Comment on above: Performed By: #### C OVFLR #### [facility] ([id number]) [address] [place] [address] 14564 Lymphocytes/100 WBC (Bld) 6.9 % Normal [facility] Comment on above: Performed By: #### C OVFLR #### [facility] ([id number]) [address] [place] [address] 12444 MCH (RBC) [Entitic mass] 28.4 pg Normal 27-[address] [facility] Comment on above: Performed By: #### C OVFLR #### [facility] ([id number]) [address] [place] [address] 67457 MCHC (RBC) [Mass/Vol] 32.5 g/dL Normal 32-36 [facility] Comment on above: Performed By: #### C OVFLR #### [facility] ([id number]) [address] [place] [address] 77126 MCV (RBC) [Entitic vol] 87 fL Normal 80-[address] [facility] Comment on above: Performed By: #### C OVFLR #### [facility] ([id number]) [address] [place] [address] 95320 Monocytes (Bld) [#/Vol] 0.5 10*3/uL Normal 0-0.[address] [facility] Comment on above: Performed By: #### C OVFLR #### [facility] ([id number]) [address] [place] [address] 65391 Monocytes/100 WBC (Bld) 3.9 % Normal [facility] Comment on above: Performed By: #### C OVFLR #### [facility] ([id number]) [address] [place] [address] 39508 Neutrophils/100 WBC (Bld) 88.3 % Normal [facility] Comment on above: Performed By: #### C OVFLR #### [facility] ([id number]) [address] [place] [address] 29153 Platelet mean volume (Bld) [Entitic vol] 8.6 fL Normal 7-[address] [facility] Comment on above: Performed By: #### C OVFLR #### [facility] ([id number]) [address] [place] [address] 05662 Platelets (Bld) [#/Vol] 120 10*3/uL Low 150-[address] [facility] Comment on above: Performed By: #### C OVFLR #### [facility] ([id number]) [address] [place] [address] 95005 RBC COUNT 4.09 X10E12/L Normal 3.80-5.[address] [facility] Comment on above: Performed By: #### C OVFLR #### [facility] ([id number]) [address] [place] [address] 23092 WBC (Bld) [#/Vol] 12.1 10*3/uL High 4.0-11.[address] [facility] Comment on above: Performed By: #### C OVFLR #### [facility] ([id number]) [address] [place] [address] 64072 COMPREHENSIVE METABOLIC PANE Rigoberto 10-19-2023 Albumin [Mass/Vol] 3.8 g/dL Normal 3.2-5.3 [facility] Comment on above: Performed By: #### C OVFLR #### [facility] ([id number]) [address] [place] [address] 56338 ALP [Catalytic activity/Vol] 98 U/L Normal 39-[address] [facility] Comment on above: Performed By: #### C OVFLR #### [facility] ([id number]) [address] [place] [address] 23153 ALT [Catalytic activity/Vol] 47 U/L High 0-[address] [facility] Comment on above: Performed By: #### C OVFLR #### [facility] ([id number]) [address] [place] [address] 47208 Anion gap [Moles/Vol] 11 mmol/L Normal 5-15 [facility] Comment on above: Performed By: #### C OVFLR #### [facility] ([id number]) [address] [place] [address] [place] [address] AST [Catalytic activity/Vol] 18 U/L Normal 0-[address] [facility] Comment on above: Performed By: #### C OVFLR #### [facility] ([id number]) [address] [place] [address] 87580 Bilirubin [Mass/Vol] 0.9 mg/dL Normal 0.3-1.2 [facility] Comment on above: Performed By: #### C OVFLR #### [facility] ([id number]) [address] [place] [address] 25158 Calcium [Mass/Vol] 8.9 mg/dL Normal 8.5-10.5 [facility] Comment on above: Performed By: #### C OVFLR #### [facility] ([id number]) [address] [place] [address] 70267 Chloride [Moles/Vol] 96 mmol/L Low 98-109 [facility] Comment on above: Performed By: #### C OVFLR #### [facility] ([id number]) [address] [place] [address] 17612 CO2 [Moles/Vol] 28 mmol/L Normal 22-[address] [facility] Comment on above: Performed By: #### C OVFLR #### [facility] ([id number]) [address] [place] [address] [place] [address] Creatinine [Mass/Vol] 1.56 mg/dL High 0.40-1.00 [facility] Comment on above: Result Comment: METH OD TRACEABLE TO IDMS STANDARD Performed By: #### C OVFLR #### [facility] ([id number]) [address] [place] [address] 62437 GFR/1.73 sq M.predicted among non-blacks MDRD (S/P/Bld) [Vol rate/Area] 33 mL/min/{1.73_m2} Low >[address] [facility] Comment on above: Result Comment: Reported eGFR is based on the CKD-EPI 2020 equation that does not use a race coefficient. Performed By: #### C OVFLR #### [facility] ([id number]) [address] [place] [address] 44390 Glucose [Mass/Vol] 246 mg/dL High 65-99 [facility] Comment on above: Performed By: #### C OVFLR #### [facility] ([id number]) [address] [place] [address] 12951 Potassium [Moles/Vol] 3.3 mmol/L Low 3.5-5.0 [facility] Comment on above: Performed By: #### C OVFLR #### [facility] ([id number]) [address] [place] [address] 30772 Protein [Mass/Vol] 7.0 g/dL Normal 6.0-8.0 [facility] Comment on above: Performed By: #### C OVFLR #### [facility] ([id number]) [address] [place] [address] 17938 Sodium [Moles/Vol] 135 mmol/L Normal 134-146 [facility] Comment on above: Performed By: #### C OVFLR #### [facility] ([id number]) [address] [place] [address] 09700 Urea nitrogen [Mass/Vol] 32 mg/dL High 5-[address] [facility] Comment on above: Performed By: #### C OVFLR #### [facility] ([id number]) [address] [place] [address] CRP [Mass/Vol]on 10-19-2023 C REACTIVE PROTEIN 3.5 mg/dL High 0.000-0.[address] [facility] Comment on above: Performed By: #### C OVFLR #### [facility] ([id number]) [address] [place] [address] CT BRAIN WO CONTon 4 CT BRAIN WO CONT CT BRAIN WO CONT History: Vertigo, peripheral Exam/Technique: CT images of the brain were obtained without IV contrast. CT does automated exposure control was utilized. All CT scans at this facility use dose modulation, iterative reconstruction, and/or weight based dosing when appropriate to reduce radiation dose to as low as reasonably achievable. Comparison: No relevant prior studies available. Findings: There is moderate degree of diffuse small vessel disease. Ventricular system and cortical sulci are appropriate for patient's age group. There is no intracranial hemorrhage, midline shift or transtentorial herniation. Osseous exam is grossly unremarkable except for polypoid soft tissue thickening of the right maxillary sinus, a few opacified ethmoid air cells and mild mucosal wall thickening along the draining track of the left frontal sinus. IMPRESSION: There are no gross acute intracranial changes. There is moderate degree of diffuse small vessel disease. There are multiple sinus disease as described above Finalized by Soco Gan MD on 10/19/2023 5:[address] [facility] Fibrin D-dimer DDU (PPP) [Ma ss/Vol]on 10-19-2023 D DIMER 245 ng/mL DDU Normal <[address] [facility] Comment on above: Result Comment: Results <255 ng/mL DDU: The presence of a VTE can safely be excluded with a negative D-Dimer result and Wells score. A negative result doesn't exclude the possibility of DIC. The test be repeated along with other diagnostic tests if the patient's symptoms persist or worsen. [email or web address] Performed By: #### 3 0934-4 #### [facility] ([id number]) [address] [place] [address] 37530 Glucose Glucometer (BldC) [M ass/Vol]on 10-19-2023 Glucose [Mass/Vol] 289 mg/dL High 65-99 [facility] Lactate (P chloe) [Moles/Vol]o n 10-19-2023 LACTATE W/REFLEX 1.8 mmol/L Normal 0.4-2.0 [facility] Comment on above: Result Comment: Result did not trigger repeat Lactate, re-order if needed. Performed By: #### C OVFLR #### [facility] ([id number]) [address] [place] [address] 96649 MAGNESIUMon 10-19-2023 Magnesium [Mass/Vol] 1.8 mg/dL Normal 1.8-2.6 [facility] Comment on above: Performed By: #### C OVFLR #### [facility] ([id number]) [address] [place] [address] 99313 Natriuretic peptide B [Mass/ Vol]on 10-19-2023 Natriuretic peptide B (Bld) [Mass/Vol] 62 pg/mL Normal <100.[address] [facility] Comment on above: Performed By: #### C OVFLR #### [facility] ([id number]) [address] [place] [address] 86957 Procalcitonin IA [Mass/Vol]o n 10-19-2023 PROCALCITONIN 0.10 ng/mL High <0.[address] [facility] Comment on above: Result Comment: NOTE <0.50 ng/mL - Low risk of severe sepsis and/or septic shock. <2.00 ng/mL - Recommend retesting within 6-24 hours. >2.00 ng/mL - High risk of sepsis and/or septic shock. Performed By: #### 3 0934-4 #### [facility] ([id number]) [address] [place] [address] 73958 THYROID PROFILEon 10-19-2023 Free T4 [Mass/Vol] 0.63 ng/dL Normal 0.61-1.60 [facility] Comment on above: Performed By: #### 3 0934-4 #### [facility] ([id number]) [address] [place] [address] 13484 TSH 2.91 uIU/mL Normal 0.49-4.[address] [facility] Comment on above: Performed By: #### 3 0934-4 #### [facility] ([id number]) [address] [place] [address] 11944 Troponin I.cardiac High sens itivity method [Mass/Vol]on 10-19-2023 1 HOUR TROP I, HIGH SENSITIVITY 8 ng/L Normal <[address] [facility] Comment on above: Performed By: #### 3 0934-4 #### [facility] ([id number]) [address] [place] [address] 77422 TROPONIN I, HIGH SENSITIVITY 8 ng/L Normal <[address] [facility] Comment on above: Performed By: #### C OVFLR #### [facility] ([id number]) [address] [place] [address] 31442 URINE CULTUREon 10-19-2023 Bacteria identified Cx Nom (U) CULTURE RESULTS <10,000 ORGANISMS/ML NORMAL URO GENITAL XOCHITL Normal [facility] Comment on above: Performed By: #### C BC, DIFFA, 28895-3 #### [facility] ([id number]) [address] [place] [address] 99400 URN MACROSCOPIC NURon 2023 BILIRUBIN KAUSHAL Negative Normal NEG [facility] Comment on above: Performed By: #### C OVFLR #### [facility] ([id number]) [address] [place] [address] 87897 BLOOD/HGB KAUSAHL Trace Abnormal NEG [facility] Comment on above: Performed By: #### C OVFLR #### [facility] ([id number]) [address] [place] [address] 48080 GLUCOSE KAUSHAL Negative Normal NEG [facility] Comment on above: Performed By: #### C OVFLR #### [facility] ([id number]) [address] [place] [address] 31666 KETONES KAUSHAL Negative Normal NEG [facility] Comment on above: Performed By: #### C OVFLR #### [facility] ([id number]) [address] [place] [address] 13083 LEUKOCYTE ESTERASE KAUSHAL Trace Abnormal NEG [facility] Comment on above: Performed By: #### C OVFLR #### [facility] ([id number]) [address] [place] [address] 47314 NITRITE KAUSHAL Negative Normal NEG [facility] Comment on above: Performed By: #### C OVFLR #### [facility] ([id number]) [address] [place] [address] 57708 PH KAUSHAL 5.5 Normal 5.0-8.[address] [facility] Comment on above: Performed By: #### C OVFLR #### [facility] ([id number]) [address] [place] [address] 28116 PROTEIN KAUSHAL Trace Abnormal NEG [facility] Comment on above: Performed By: #### C OVFLR #### [facility] ([id number]) [address] [place] [address] [place] [address] SPECIFIC GRAVITY KAUSHAL 1.020 Normal 1.003-1 .[address] [facility] Comment on above: Performed By: #### C OVFLR #### [facility] ([id number]) [address] [place] [address] 51037 UROBILINOGEN KAUSHAL 0.2 eu/dL Normal <1.1 [facility] Comment on above: Performed By: #### C OVFLR #### [facility] ([id number]) [address] [place] [address] 56757 XR CHEST 2 VWSon 10-19-2023 XR CHEST 2 VWS XR CHEST 2 VWS History: pleural effusion. Exam/Technique: PA and lateral views of the chest are obtained. Comparison: Chest x-ray 10/10/2023. Findings: Cardiac size is stable. Left side chest port catheter is essentially stable with the tip is in the right atrium. There is small right-sided pleural effusion with basilar airspace disease likely atelectasis.. IMPRESSION: Stable chest x-ray with small right-sided pleural effusion and basal atelectasis Finalized by Soco Gan MD on 10/19/2023 6:[address] [facility] CBC AND AUTO DIFFon 10-10-19 ABSOLUTE BASOPHIL 0.1 X10E9/L Normal 0.0-0.2 [facility] Comment on above: Performed By: #### C BCA, 94942-4, PINR, 90221-7, CMP, 08900-2, 31020-6, 86035-6 ####[facility] ([id number])[address] [place] [address] 83410 ABSOLUTE NEUTROPHIL 6.9 X10E9/L High 1.5-6.6 [facility] Comment on above: Performed By: #### C BCA, 55948-4, PINR, 77158-5, CMP, 18024-2, 80540-6, 36993-1 ####[facility] ([id number])[address] [place] [address] 06521 Basophils/100 WBC (Bld) 0.9 % Normal [facility] Comment on above: Performed By: #### C BCA, 23782-1, PINR, 17076-2, CMP, 10460-1, 45046-7, 69717-0 ####[facility] ([id number])[address] [place] [address] 58819 Eosinophils (Bld) [#/Vol] 0.1 10*3/uL Normal 0.0-0.[address] [facility] Comment on above: Performed By: #### C BCA, 96103-7, PINR, 84044-2, CMP, 54595-4, 82811-5, 43516-2 ####[facility] ([id number])[address] [place] [address] 68087 Eosinophils/100 WBC (Bld) 1.0 % Normal [facility] Comment on above: Performed By: #### C BCA, 37063-9, PINR, 51906-3, CMP, 46595-5, 98048-7, 37352-4 ####[facility] ([id number])[address] [place] [address] 99437 Erythrocyte distribution width (RBC) [Ratio] 18.2 % High 11.5-15.[address] [facility] Comment on above: Performed By: #### C BCA, 80792-9, PINR, 06419-3, CMP, 06950-6, 98440-6, 38146-2 ####[facility] ([id number])[address] [place] [address] 10607 Hematocrit (Bld) [Volume fraction] 34.0 % Low 35-[address] [facility] Comment on above: Performed By: #### C BCA, 95347-6, PINR, 51250-8, CMP, 06524-0, 77715-0, 31595-0 ####[facility] ([id number])[address] [place] [address] 78623 Hemoglobin (Bld) [Mass/Vol] 11.4 g/dL Low 11.7-15.[address] [facility] Comment on above: Performed By: #### C BCA, 14173-2, PINR, 85606-7, CMP, 48746-7, 61757-4, 42977-7 ####[facility] ([id number])[address] [place] [address] 90765 Lymphocytes (Bld) [#/Vol] 0.9 10*3/uL Low 1.0-3.[address] [facility] Comment on above: Performed By: #### C BCA, 12668-1, PINR, 17650-0, CMP, 12853-9, 37583-0, 23278-3 ####[facility] ([id number])[address] [place] [address] 96405 Lymphocytes/100 WBC (Bld) 10.9 % Normal [facility] Comment on above: Performed By: #### C BCA, 83637-8, PINR, 36935-2, CMP, 45380-3, 20105-0, 06390-9 ####[facility] ([id number])[address] [place] [address] 99702 MCH (RBC) [Entitic mass] 29.1 pg Normal 27-[address] [facility] Comment on above: Performed By: #### C BCA, 36579-2, PINR, 50799-8, CMP, 37642-7, 68585-5, 27248-7 ####[facility] ([id number])[address] [place] [address] 58670 MCHC (RBC) [Mass/Vol] 33.4 g/dL Normal 32-36 [facility] Comment on above: Performed By: #### C BCA, 66572-2, PINR, 33589-2, CMP, 11521-1, 52338-5, 85641-1 ####[facility] ([id number])[address] [place] [address] 15636 MCV (RBC) [Entitic vol] 87 fL Normal 80-[address] [facility] Comment on above: Performed By: #### C BCA, 78660-0, PINR, 44251-9, CMP, 70726-8, 84829-0, 29466-8 ####[facility] ([id number])[address] [place] [address] 79757 Monocytes (Bld) [#/Vol] 0.4 10*3/uL Normal 0-0.[address] [facility] Comment on above: Performed By: #### C BCA, 14956-0, PINR, 84297-8, CMP, 85886-8, 83510-9, 39505-2 ####[facility] ([id number])[address] [place] [address] 98937 Monocytes/100 WBC (Bld) 4.9 % Normal [facility] Comment on above: Performed By: #### Raul BCA, 54807-0, PINR, 19841-9, CMP, 98545-1, 82521-2, 94272-7 ####[facility] ([id number])[address] [place] [address] 23661 Neutrophils/100 WBC (Bld) 82.3 % Normal [facility] Comment on above: Performed By: #### Raul BCA, 10177-7, PINR, 59514-6, CMP, 64311-0, 95096-5, 40742-5 ####[facility] ([id number])[address] [place] [address] 00696 Platelet mean volume (Bld) [Entitic vol] 8.1 fL Normal 7-[address] [facility] Comment on above: Performed By: #### C BCA, 14373-1, PINR, 51989-4, CMP, 48590-3, 57499-6, 87019-3 ####[facility] ([id number])[address] [place] [address] 24631 Platelets (Bld) [#/Vol] 164 10*3/uL Normal 150-[address] [facility] Comment on above: Performed By: #### C BCA, 43526-5, PINR, 91109-8, CMP, 56964-0, 44121-1, 25150-8 ####[facility] ([id number])[address] [place] [address] 67799 RBC COUNT 3.91 X10E12/L Normal 3.80-5.[address] [facility] Comment on above: Performed By: #### C BCA, 14461-1, PINR, 66039-2, CMP, 20396-8, 93706-7, 52634-2 ####[facility] ([id number])[address] [place] [address] 64883 WBC (Bld) [#/Vol] 8.4 10*3/uL Normal 4.0-11.0 [facility] Comment on above: Performed By: #### C BCA, 12074-3, PINR, 85393-9, CMP, 61438-8, 39437-3, 35379-7 ####[facility] ([id number])[address] [place] [address] 58813 COMPREHENSIVE METABOLIC PANE Rigoberto 10-10-2023 Albumin [Mass/Vol] 3.4 g/dL Normal 3.2-5.3 [facility] Comment on above: Performed By: #### C BCA, 41074-2, PINR, 22805-9, CMP, 28671-6, 37043-5, 77635-0 ####[facility] ([id number])[address] [place] [address] 12424 ALP [Catalytic activity/Vol] 99 U/L Normal 39-[address] [facility] Comment on above: Performed By: #### C BCA, 80862-3, PINR, 00286-2, CMP, 37896-3, 33379-5, 42595-6 ####[facility] ([id number])[address] [place] [address] [place] [address] ALT [Catalytic activity/Vol] 47 U/L High 0-[address] [facility] Comment on above: Performed By: #### C BCA, 09072-5, PINR, 27354-7, CMP, 43041-6, 31839-3, 17170-6 ####[facility] ([id number])[address] [place] [address] 02124 Anion gap [Moles/Vol] 10 mmol/L Normal 5-15 [facility] Comment on above: Performed By: #### C BCA, 37000-4, PINR, 64855-3, CMP, 79795-6, 40899-8, 46185-8 ####[facility] ([id number])[address] [place] [address] 64330 AST [Catalytic activity/Vol] 50 U/L High 0-[address] [facility] Comment on above: Performed By: #### C BCA, 14945-2, PINR, 18363-9, CMP, 82083-3, 28586-6, 25167-1 ####[facility] ([id number])[address] [place] [address] 51247 Bilirubin [Mass/Vol] 0.5 mg/dL Normal 0.3-1.2 [facility] Comment on above: Performed By: #### C BCA, 12203-8, PINR, 78980-1, CMP, 69794-9, 09235-5, 52225-6 ####[facility] ([id number])[address] [place] [address] 88649 Calcium [Mass/Vol] 8.8 mg/dL Normal 8.5-10.5 [facility] Comment on above: Performed By: #### C BCA, 13392-8, PINR, 52409-1, CMP, 16358-5, 15914-2, 38242-2 ####[facility] ([id number])[address] [place] [address] 50548 Chloride [Moles/Vol] 97 mmol/L Low 98-109 [facility] Comment on above: Performed By: #### C BCA, 99312-0, PINR, 84249-3, CMP, 68639-2, 34728-3, 95900-0 ####[facility] ([id number])[address] [place] [address] 21042 CO2 [Moles/Vol] 31 mmol/L Normal 22-[address] [facility] Comment on above: Performed By: #### C BCA, 52150-5, PINR, 44112-4, CMP, 50047-8, 70721-1, 41114-1 ####[facility] ([id number])[address] [place] [address] 65211 Creatinine [Mass/Vol] 1.35 mg/dL High 0.40-1.00 [facility] Comment on above: Result Comment: METH OD TRACEABLE TO IDMS STANDARD Performed By: #### C BCA, 39523-9, PINR, 79147-5, CMP, 74231-3, 40486-5, 83422-7 ####[facility] ([id number])[address] [place] [address] 15913 GFR/1.73 sq M.predicted among non-blacks MDRD (S/P/Bld) [Vol rate/Area] 40 mL/min/{1.73_m2} Low >[address] [facility] Comment on above: Result Comment: Reported eGFR is based on the CKD-EPI 2020 equation that does not use a race coefficient. Performed By: #### C BCA, 61493-3, PINR, 14990-2, CMP, 07546-9, 46442-2, 10141-1 ####[facility] ([id number])[address] [place] [address] 91927 Glucose [Mass/Vol] 312 mg/dL High 65-99 [facility] Comment on above: Performed By: #### C BCA, 29578-8, PINR, 61167-2, CMP, 95395-6, 42312-1, 20246-1 ####[facility] ([id number])[address] [place] [address] 93884 Potassium [Moles/Vol] 3.5 mmol/L Normal 3.5-5.0 [facility] Comment on above: Performed By: #### C BCA, 35506-0, PINR, 76349-8, CMP, 21440-9, 88167-7, 57574-0 ####[facility] ([id number])[address] [place] [address] 04936 Protein [Mass/Vol] 6.3 g/dL Normal 6.0-8.0 [facility] Comment on above: Performed By: #### C BCA, 00602-0, PINR, 47029-8, CMP, 79549-6, 14223-3, 18203-7 ####[facility] ([id number])[address] [place] [address] 78910 Sodium [Moles/Vol] 138 mmol/L Normal 134-146 [facility] Comment on above: Performed By: #### C BCA, 03089-3, PINR, 90236-6, CMP, 12861-3, 87955-0, 05764-5 ####[facility] ([id number])[address] [place] [address] 09277 Urea nitrogen [Mass/Vol] 33 mg/dL High 5-[address] [facility] Comment on above: Performed By: #### C BCA, 48332-0, PINR, 87101-8, CMP, 36504-7, 27407-5, 60775-4 ####[facility] ([id number])[address], [place] [address] Fibrin D-dimer DDU (PPP) [Ma ss/Vol]on 10-10-2023 D DIMER 243 ng/mL DDU Normal <[address] [facility] Comment on above: Result Comment: Results <255 ng/mL DDU: The presence of a VTE can safely be excluded with a negative D-Dimer result and Wells score. A negative result doesn't exclude the possibility of DIC. The test be repeated along with other diagnostic tests if the patient's symptoms persist or worsen. [email or web address] Performed By: #### C BCA, 27294-3, PINR, 00582-8, CMP, 68140-2, 07488-3, 44744-7 ####[facility] ([id number])[address] [place] [address] MAGNESIUMon 10-10-2023 Magnesium [Mass/Vol] 1.8 mg/dL Normal 1.8-2.6 [facility] Comment on above: Performed By: #### C BCA, 53783-7, PINR, 21309-1, CMP, 41790-5, 01763-6, 15802-6 ####[facility] ([id number])[address] [place] [address]139 Natriuretic peptide B [Mass/ Vol]on 10-10-2023 Natriuretic peptide B (Bld) [Mass/Vol] 52 pg/mL Normal <100.[address] [facility] Comment on above: Performed By: #### C BCA, 44201-6, PINR, 24281-1, CMP, 90435-1, 32000-9, 92789-9 ####[facility] ([id number])[address] [place] [address] PROTIME AND INRon 10-10-2023 INR Coag (PPP) [Relative time] 0.9 {INR} Normal 0.8-1.[address] [facility] Comment on above: Performed By: #### C BCA, 81082-7, PINR, 10893-2, CMP, 11683-8, 77451-0, 82206-0 ####[facility] ([id number])[address] [place] [address] PT Coag (PPP) [Time] 10.6 s Normal 9.8-13.2 [facility] Comment on above: Result Comment: NEW REFERENCE RANGE Performed By: #### C BCA, 24146-0, PINR, 75198-9, CMP, 10740-1, 55307-8, 19719-7 ####[facility] ([id number])[address] [place] [address]453 Troponin I.cardiac High sens itivity method [Mass/Vol]on 10-10-2023 1 HOUR TROP I, HIGH SENSITIVITY 7 ng/L Normal <[address] [facility] Comment on above: Performed By: #### C OVFLR #### [facility] ([id number]) [address] [place] [address] 74124 TROPONIN I, HIGH SENSITIVITY 7 ng/L Normal <[address] [facility] Comment on above: Performed By: #### C BCA, 92460-4, PINR, 46386-9, CMP, 22113-3, 64876-5, 48778-5 ####[facility] ([id number])[address] [place] [address] 73531 XR CHEST 1 VWon 10-10-2023 XR CHEST 1 VW XR CHEST 1 VW History: chest pain hx PNA Exam/Technique: Single AP view of the chest was obtained Comparison: Chest x-ray 10/05/2023 Findings: Right-sided chest port catheter tip remains in the right atrium. Cardiac size is stable. There is minimal right basilar airspace disease likely atelectasis with small right-sided effusion. IMPRESSION: Grossly stable chest x-ray with small right-sided pleural effusion and basilar airspace disease likely atelectasis. Left-sided chest port catheter tip in the right atrium along the tricuspid valve. Finalized by Soco Gan MD on 10/10/2023 7:[address] [facility] aPTT Coag (PPP) [Time]on aPTT Coag (Bld) [Time] 29 s Normal 26-37 [facility] Comment on above: Result Comment: NEW REFERENCE RANGE Performed By: #### C BCA, 59802-4, PINR, 86690-5, CMP, 12143-9, 53875-3, 86995-8 ####[facility] ([id number])[address] [place] [address] 90340 BLOOD CULTUREon 10-05-2023 Bacteria identified Aer cx Nom (Bld) SPECIMEN NOTES SUBOPTIMAL VOLUME OF BLOOD COLLECTED, RESULTS MAY BE AFFECTED. CULTURE RESULTS NO GROWTH [address] [facility] Comment on above: Performed By: #### 1 7928-3 ####[facility] ([id number])[address], [address] [place] [address]19 Bacteria identified Aer cx Nom (Bld) SPECIMEN NOTES SUBOPTIMAL VOLUME OF BLOOD COLLECTED, RESULTS MAY BE AFFECTED. CULTURE RESULTS NO GROWTH [address] [facility] Comment on above: Performed By: #### 1 7928-3 ####[facility] ([id number])[address], [address] [place] [address] 75483 CBC AND AUTO DIFFon 10-05-19 24 ABSOLUTE BASOPHIL 0.0 X10E9/L Normal 0.0-0.2 [facility] Comment on above: Performed By: #### C MP, CBCA, 27373-6, 73207-5, 08507-1 #### [facility] ([id number]) [address] [place] [address] 02305 ABSOLUTE NEUTROPHIL 4.4 X10E9/L Normal 1.5-6.6 [facility] Comment on above: Performed By: #### C MP, CBCA, 03424-8, 51082-7, 11158-3 #### [facility] ([id number]) [address] [place] [address] 31143 Basophils/100 WBC (Bld) 0.8 % Normal [facility] Comment on above: Performed By: #### C MP, CBCA, 25267-5, 68256-3, 38656-7 #### [facility] ([id number]) [address] [place] [address] 13392 Eosinophils (Bld) [#/Vol] 0.1 10*3/uL Normal 0.0-0.[address] [facility] Comment on above: Performed By: #### C MP, CBCA, 13967-0, 33509-7, 90000-8 #### [facility] ([id number]) [address] [place] [address] 90290 Eosinophils/100 WBC (Bld) 1.1 % Normal [facility] Comment on above: Performed By: #### C MP, CBCA, 42947-8, 80659-9, 02616-3 #### [facility] ([id number]) [address] [place] [address] 29448 Erythrocyte distribution width (RBC) [Ratio] 17.6 % High 11.5-15.[address] [facility] Comment on above: Performed By: #### C MP, CBCA, 23705-1, 47512-6, 22908-4 #### [facility] ([id number]) [address] [place] [address] 90737 Hematocrit (Bld) [Volume fraction] 32.6 % Low 35-[address] [facility] Comment on above: Performed By: #### C MP, CBCA, 10057-7, 14614-3, 65267-2 #### [facility] ([id number]) [address] [place] [address] 81603 Hemoglobin (Bld) [Mass/Vol] 10.8 g/dL Low 11.7-15.[address] [facility] Comment on above: Performed By: #### C MP, CBCA, 32594-2, 62313-3, 05138-6 #### [facility] ([id number]) [address] [place] [address] 28823 Lymphocytes (Bld) [#/Vol] 0.7 10*3/uL Low 1.0-3.[address] [facility] Comment on above: Performed By: #### C MP, CBCA, 26297-5, 36649-2, 68144-1 #### [facility] ([id number]) [address] [place] [address] 90673 Lymphocytes/100 WBC (Bld) 12.4 % Normal [facility] Comment on above: Performed By: #### C MP, CBCA, 48680-9, 13271-7, 24780-1 #### [facility] ([id number]) [address] [place] [address] 74070 MCH (RBC) [Entitic mass] 28.8 pg Normal 27-[address] [facility] Comment on above: Performed By: #### C MP, CBCA, 34705-3, 40872-5, 63987-2 #### [facility] ([id number]) [address] [place] [address] 66306 MCHC (RBC) [Mass/Vol] 33.2 g/dL Normal 32-36 [facility] Comment on above: Performed By: #### C MP, CBCA, 20072-7, 15599-8, 70874-6 #### [facility] ([id number]) [address] [place] [address] 92804 MCV (RBC) [Entitic vol] 87 fL Normal 80-[address] [facility] Comment on above: Performed By: #### C MP, CBCA, 00376-5, 18063-4, 78265-5 #### [facility] ([id number]) [address] [place] [address] 66507 Monocytes (Bld) [#/Vol] 0.3 10*3/uL Normal 0-0.[address] [facility] Comment on above: Performed By: #### C MP, CBCA, 59561-6, 63140-4, 95075-4 #### [facility] ([id number]) [address] [place] [address] 65604 Monocytes/100 WBC (Bld) 5.8 % Normal [facility] Comment on above: Performed By: #### C MP, CBCA, 33957-7, 41213-0, 31452-9 #### [facility] ([id number]) [address] [place] [address] 45713 Neutrophils/100 WBC (Bld) 79.9 % Normal [facility] Comment on above: Performed By: #### C MP, CBCA, 75311-9, 71301-5, 08630-3 #### [facility] ([id number]) [address] [place] [address] 80201 Platelet mean volume (Bld) [Entitic vol] 8.2 fL Normal 7-[address] [facility] Comment on above: Performed By: #### C MP, CBCA, 75269-7, 63688-2, 76397-5 #### [facility] ([id number]) [address] [place] [address] 84524 Platelets (Bld) [#/Vol] 142 10*3/uL Low 150-[address] [facility] Comment on above: Performed By: #### C MP, CBCA, 77105-6, 60640-1, 90216-1 #### [facility] ([id number]) [address] [place] [address] 91795 RBC COUNT 3.75 X10E12/L Low 3.80-5.[address] [facility] Comment on above: Performed By: #### C MP, CBCA, 76216-6, 46607-4, 02317-9 #### [facility] ([id number]) [address] [place] [address] 98925 WBC (Bld) [#/Vol] 5.5 10*3/uL Normal 4.0-11.0 [facility] Comment on above: Performed By: #### C MP, CBCA, 80240-4, 72189-3, 88556-9 #### [facility] ([id number]) [address] [place] [address] 32571 COMPREHENSIVE METABOLIC PANE Rigoberto 10-05-2023 Albumin [Mass/Vol] 3.5 g/dL Normal 3.2-5.3 [facility] Comment on above: Performed By: #### C TYRONE, CBCA, 45041-3, 26818-8, 70313-8 #### [facility] ([id number]) [address] [place] [address] 97522 ALP [Catalytic activity/Vol] 82 U/L Normal 39-[address] [facility] Comment on above: Performed By: #### C TYRONE, CBCA, 54196-0, 07370-0, 34637-9 #### [facility] ([id number]) [address] [place] [address] 29587 ALT [Catalytic activity/Vol] 25 U/L Normal 0-[address] [facility] Comment on above: Performed By: #### C MP, CBCA, 11696-8, 65146-7, 16075-9 #### [facility] ([id number]) [address] [place] [address] 53318 Anion gap [Moles/Vol] 10 mmol/L Normal 5-15 [facility] Comment on above: Performed By: #### C MP, CBCA, 76597-4, 85217-2, 78027-5 #### [facility] ([id number]) [address] [place] [address] 06097 AST [Catalytic activity/Vol] 20 U/L Normal 0-[address] [facility] Comment on above: Performed By: #### C TYRONE, CBCA, 31053-4, 84723-2, 40999-9 #### [facility] ([id number]) [address] [place] [address] 61474 Bilirubin [Mass/Vol] 0.9 mg/dL Normal 0.3-1.2 [facility] Comment on above: Performed By: #### C TYRONE, CBCA, 65692-8, 69820-9, 63812-6 #### [facility] ([id number]) [address] [place] [address] 91894 Calcium [Mass/Vol] 8.6 mg/dL Normal 8.5-10.5 [facility] Comment on above: Performed By: #### C TYRONE, CBCA, 16854-4, 97467-3, 08280-4 #### [facility] ([id number]) [address] [place] [address] 30279 Chloride [Moles/Vol] 98 mmol/L Normal 98-109 [facility] Comment on above: Performed By: #### C TYRONE, CBCA, 34851-7, 17507-8, 00600-8 #### [facility] ([id number]) [address] [place] [address] 27337 CO2 [Moles/Vol] 33 mmol/L High 22-[address] [facility] Comment on above: Performed By: #### C TYRONE, CBCA, 91571-3, 32078-9, 90334-4 #### [facility] ([id number]) [address] [place] [address] 31938 Creatinine [Mass/Vol] 1.08 mg/dL High 0.40-1.00 [facility] Comment on above: Result Comment: METH OD TRACEABLE TO IDMS STANDARD Performed By: #### C SHY HANSEN, 23647-4, 22820-2, 79230-3 #### [facility] ([id number]) [address] [place] [address] 98343 GFR/1.73 sq M.predicted among non-blacks MDRD (S/P/Bld) [Vol rate/Area] 52 mL/min/{1.73_m2} Low >[address] [facility] Comment on above: Result Comment: Reported eGFR is based on the CKD-EPI 2020 equation that does not use a race coefficient. Performed By: #### C SHY HANSEN, 12038-5, 82050-6, 75784-3 #### [facility] ([id number]) [address] [place] [address] 26719 Glucose [Mass/Vol] 157 mg/dL High 65-99 [facility] Comment on above: Performed By: #### C SHY HANSEN, 44149-5, 73676-9, 48821-2 #### [facility] ([id number]) [address] [place] [address] 89609 Potassium [Moles/Vol] 3.4 mmol/L Low 3.5-5.0 [facility] Comment on above: Performed By: #### C SHY HANSEN, 94768-6, 85476-2, 21140-3 #### [facility] ([id number]) [address] [place] [address] 59490 Protein [Mass/Vol] 7.0 g/dL Normal 6.0-8.0 [facility] Comment on above: Performed By: #### C SHY HANSEN, 57226-8, 60199-9, 18894-6 #### [facility] ([id number]) [address] [place] [address] 98788 Sodium [Moles/Vol] 141 mmol/L Normal 134-146 [facility] Comment on above: Performed By: #### C MP, CBCA, 39542-1, 03051-8, 42498-8 #### [facility] ([id number]) [address] [facility], [place] [address] Urea nitrogen [Mass/Vol] 15 mg/dL Normal 5-[address] [facility] Comment on above: Performed By: #### C MP, CBCA, 86898-5, 73626-7, 81274-9 #### [facility] ([id number]) [address], [place] [address] CT CTA CHESTon 10-05-[address] CTA CHEST CLINICAL INDICATION: Pulmonary embolism (PE) suspected, low to intermediate prob, positive D-dimer. COMPARISON STUDY: CT oncology 01/27/2022. TECHNIQUE: CT was performed using 100 mL Omnipaque 350 intravenous contrast, without complication. Coronal, sagittal and 3-D volume rendered maximum intensity projection images generated and reviewed under concurrent physician supervision. FINDINGS: PULMONARY ARTERIES: No acute pulmonary embolism. Reflux of contrast into the IVC. Dilated main pulmonary artery, which can be seen with pulmonary arterial hypertension, measuring up to 3.3 cm. CHEST: Heart & Pericardium: Unremarkable cardiac morphology.. No significant pericardial effusion. Thoracic Aorta & Great Vessels: Normal in diameter. Lymph Nodes: No enlarged thoracic lymph nodes. Mediastinum & Esophagus: Unremarkable. Central Airway: Unremarkable. Lungs: Multisegment collapse posterior and lateral right lower lobe with Air bronchograms.. Pleura: Large right pleural effusion.. Lower Neck & Thyroid: Unremarkable. Visualized Upper Abdomen: Status post cholecystectomy.. Thoracic Spine & Chest Wall: No suspicious osseous lesion. Posttreatment changes of the right breast. Other Lines/Tubes/Devices/Hardwa re: Left chest port with tip near the atrioventricular junction.. IMPRESSION: 1. No acute pulmonary embolism. 2. Large right pleural effusion. Multisegment collapse posterior and lateral right lower lobe with Air bronchograms. Underlying infiltrate may be possible. All CT scans at this facility use dose modulation, iterative reconstruction, and/or weight based dosing when appropriate to reduce radiation dose to as low as reasonably achievable. Finalized by Efe Shannon on 10/05/2023 8:[address] [facility] Fibrin D-dimer DDU (PPP) [Ma ss/Vol]on 10-05-2023 D DIMER 291 ng/mL DDU High <[address] [facility] Comment on above: Result Comment: Results >=255ng/mL DDU: Results may be indicative of the presence of VTE. The use of the Wells score and further diagnostic tests should be considered. Elevated D-Dimer levels can also be associated with DIC, neoplasm, , trauma and liver disease. Elevated levels of rheumatoid factor may lead to an overestimation of the D-Dimer level. Performed By: #### C TYRONE, CBCA, 58985-6, 47013-5, 30393-2 #### [facility] ([id number]) [address] [place] [address] 88604 Lactate (P chloe) [Moles/Vol]o n 10-05-2023 LACTATE W/REFLEX 1.3 mmol/L Normal 0.4-2.0 [facility] Comment on above: Result Comment: Result did not trigger repeat Lactate, re-order if needed. Performed By: #### C TYRONE, CBCA, 85842-0, 29617-5, 34664-6 #### [facility] ([id number]) [address] [place] [address] 08278 MAGNESIUMon 10-05-2023 Magnesium [Mass/Vol] 1.9 mg/dL Normal 1.8-2.6 [facility] Comment on above: Performed By: #### C TYRONE, CBCA, 10806-3, 09029-6, 07593-7 #### [facility] ([id number]) [address] [place] [address] 61960 Natriuretic peptide B [Mass/ Vol]on 10-05-2023 Natriuretic peptide B (Bld) [Mass/Vol] 75 pg/mL Normal <100.[address] [facility] Comment on above: Performed By: #### C MP, CBCA, 60798-1, 55565-0, 60330-4 #### [facility] ([id number]) [address], [place] [address] SARS/FLU A+B/RSV by NAAT/Mol ecularon 10-05-2023 SARS/FLU A+B/RSV by NAAT/Molecular FLU A PCR Negative (qualifier value) FLU B PCR Negative (qualifier value) RSV by PCR Negative (qualifier value) SARS CoV 2 Not detected (qualifier value) NOTE The Xpert Xpress SARS-CoV-2/Flu/RSV Plus test is a rapid, multiplexed real-time RT-PCR test intended for the simultaneous qualitative detection and differentiation of SARS-CoV-2, influenza A, influenza B and respiratory syncytial virus (RSV) viral RNA from individuals suspected of respiratory viral infection consistent with COVID-19 by their healthcare provider. This test has not been validated in asymptomatic patients. The Xpert Xpress SARS-CoV-2 test is intended for use by qualified and trained operators who are performing tests using either [employer] or [employer] systems and is limited to laboratories that meet the CLIA requirements to perform high and moderate complexity tests. The Xpert Xpress SARS-CoV-2/Flu/RSV Plus is only for use under the Food and Drug Administration's Emergency Use Authorization. Results are for the simultaneous detection and differentiation of SARS-CoV-2, influenza A, influenza B and RSV nucleic acids in clinical specimens. SARS-CoV-2, influenza A, influenza B and RSV RNA identified by this test are generally detectable in upper respiratory samples during the acute phase of infection. Positive results are indicative of the presence of the identified virus, but do not rule out bacterial infection or co-infection with other pathogens not detected by this test. Clinical correlation with patient history and other diagnostic information is necessary to determine patient infection status. The agent detected may not be the definite cause of disease. Negative results do not preclude SARS-CoV-2, influenza A, influenza B and RSV infection and should not be used as the sole basis for treatment or other patient management decisions. Negative results must be combined with clinical observations, patient history and epidemiological information. An Invalid result may occur with specimen-associated inhibition unable to be resolved with specimen repeat. Fact Sheet for Healthcare Providers: https://www.fda.gov/media/ 091666/download Fact Sheet for Patients: https://www.fda.gov/media/ 972011/download Normal [facility] Comment on above: Performed By: #### C MP, CBCA, 77907-4, 81397-3, 71821-5 #### [facility] ([id number]) [address] [place] [address] 41586 Troponin I.cardiac High sens itivity method [Mass/Vol]on 10-05-2023 1 HOUR TROP I, HIGH SENSITIVITY 8 ng/L Normal <[address] [facility] Comment on above: Performed By: #### C MP, CBCA, 65536-0, 07886-7, 85013-7 #### [facility] ([id number]) [address] [place] [address] 83933 TROPONIN I, HIGH SENSITIVITY 8 ng/L Normal <[address] [facility] Comment on above: Performed By: #### C MP, CBCA, 29181-1, 76717-5, 24001-6 #### [facility] ([id number]) [address] [place] [address] 01473 CBC AND AUTO DIFFon 09-18-19 24 ABSOLUTE BASOPHIL 0.1 X10E9/L Normal 0.0-0.2 [facility] Comment on above: Performed By: #### C MP, CBCA, 47307-1, 21222-3, 98813-7 #### [facility] ([id number]) [address] [place] [address] 64116 ABSOLUTE NEUTROPHIL 6.1 X10E9/L Normal 1.5-6.6 [facility] Comment on above: Performed By: #### C MP, CBCA, 13209-6, 01050-1, 42416-7 #### [facility] ([id number]) [address] [place] [address] 92446 Basophils/100 WBC (Bld) 0.9 % Normal [facility] Comment on above: Performed By: #### C MP, CBCA, 08834-4, 63777-9, 31829-2 #### [facility] ([id number]) [address] [place] [address] 35208 Eosinophils (Bld) [#/Vol] 0.1 10*3/uL Normal 0.0-0.[address] [facility] Comment on above: Performed By: #### C MP, CBCA, 86256-8, 64551-1, 44269-4 #### [facility] ([id number]) [address] [place] [address] 94409 Eosinophils/100 WBC (Bld) 1.3 % Normal [facility] Comment on above: Performed By: #### C MP, CBCA, 59338-8, 99166-7, 05293-3 #### [facility] ([id number]) [address] [place] [address] 39923 Erythrocyte distribution width (RBC) [Ratio] 18.2 % High 11.5-15.[address] [facility] Comment on above: Performed By: #### C MP, CBCA, 41384-2, 26508-3, 22012-4 #### [facility] ([id number]) [address] [place] [address] 39325 Hematocrit (Bld) [Volume fraction] 31.5 % Low 35-[address] [facility] Comment on above: Performed By: #### C MP, CBCA, 15135-7, 61290-9, 81210-4 #### [facility] ([id number]) [address] [place] [address] 50598 Hemoglobin (Bld) [Mass/Vol] 10.6 g/dL Low 11.7-15.[address] [facility] Comment on above: Performed By: #### C MP, CBCA, 18604-6, 95424-7, 78026-8 #### [facility] ([id number]) [address] [place] [address] 51617 Lymphocytes (Bld) [#/Vol] 0.7 10*3/uL Low 1.0-3.[address] [facility] Comment on above: Performed By: #### C MP, CBCA, 25243-6, 07719-7, 58247-8 #### [facility] ([id number]) [address] [place] [address] 49997 Lymphocytes/100 WBC (Bld) 9.1 % Normal [facility] Comment on above: Performed By: #### C MP, CBCA, 37239-9, 01768-7, 98685-8 #### [facility] ([id number]) [address] [place] [address] 31686 MCH (RBC) [Entitic mass] 29.4 pg Normal 27-[address] [facility] Comment on above: Performed By: #### C MP, CBCA, 49911-5, 22267-1, 80852-4 #### [facility] ([id number]) [address] [place] [address] 18214 MCHC (RBC) [Mass/Vol] 33.6 g/dL Normal 32-36 [facility] Comment on above: Performed By: #### C MP, CBCA, 13002-2, 89607-8, 62515-4 #### [facility] ([id number]) [address] [place] [address] 11405 MCV (RBC) [Entitic vol] 87 fL Normal 80-[address] [facility] Comment on above: Performed By: #### C MP, CBCA, 50833-6, 46199-0, 36497-8 #### [facility] ([id number]) [address] [place] [address] 81006 Monocytes (Bld) [#/Vol] 0.4 10*3/uL Normal 0-0.[address] [facility] Comment on above: Performed By: #### C MP, CBCA, 93785-4, 86869-8, 66151-8 #### [facility] ([id number]) [address] [place] [address] 10473 Monocytes/100 WBC (Bld) 5.4 % Normal [facility] Comment on above: Performed By: #### C MP, CBCA, 44099-5, 91970-8, 70696-2 #### [facility] ([id number]) [address] [place] [address] 70503 Neutrophils/100 WBC (Bld) 83.3 % Normal [facility] Comment on above: Performed By: #### C MP, CBCA, 85496-4, 95288-6, 53946-2 #### [facility] ([id number]) [address] [place] [address] 02383 Platelet mean volume (Bld) [Entitic vol] 8.3 fL Normal 7-[address] [facility] Comment on above: Performed By: #### C MP, CBCA, 49928-1, 95636-3, 47117-9 #### [facility] ([id number]) [address] [place] [address] 66639 Platelets (Bld) [#/Vol] 119 10*3/uL Low 150-[address] [facility] Comment on above: Performed By: #### C MP, CBCA, 96778-9, 80850-6, 76809-4 #### [facility] ([id number]) [address] [place] [address] 84950 RBC COUNT 3.61 X10E12/L Low 3.80-5.[address] [facility] Comment on above: Performed By: #### C MP, CBCA, 74796-6, 91501-4, 19571-7 #### [facility] ([id number]) [address] [place] [address] 09986 WBC (Bld) [#/Vol] 7.3 10*3/uL Normal 4.0-11.0 [facility] Comment on above: Performed By: #### C MP, CBCA, 10203-2, 39950-3, 40391-9 #### [facility] ([id number]) [address] [place] [address] 30971 COMPREHENSIVE METABOLIC PANE Rigoberto 09-18-2023 Albumin [Mass/Vol] 3.5 g/dL Normal 3.2-5.3 [facility] Comment on above: Performed By: #### C MP, CBCA, 95146-4, 01390-6, 69272-4 #### [facility] ([id number]) [address] [place] [address] 47894 ALP [Catalytic activity/Vol] 89 U/L Normal 39-[address] [facility] Comment on above: Performed By: #### C MP, CBCA, 11806-3, 65758-2, 65792-5 #### [facility] ([id number]) [address] [place] [address] 65494 ALT [Catalytic activity/Vol] 17 U/L Normal 0-[address] [facility] Comment on above: Performed By: #### C MP, CBCA, 63522-0, 87365-5, 71400-8 #### [facility] ([id number]) [address] [place] [address] 42650 Anion gap [Moles/Vol] 11 mmol/L Normal 5-15 [facility] Comment on above: Performed By: #### C MP, CBCA, 27451-9, 53812-5, 96540-4 #### [facility] ([id number]) [address] [place] [address] 94958 AST [Catalytic activity/Vol] 19 U/L Normal 0-[address] [facility] Comment on above: Performed By: #### C MP, CBCA, 26558-9, 35310-8, 72602-8 #### [facility] ([id number]) [address] [place] [address] 14989 Bilirubin [Mass/Vol] 0.7 mg/dL Normal 0.3-1.2 [facility] Comment on above: Performed By: #### C TYRONE, CBCA, 64537-2, 78035-5, 97336-7 #### [facility] ([id number]) [address] [place] [address] 62487 Calcium [Mass/Vol] 8.7 mg/dL Normal 8.5-10.5 [facility] Comment on above: Performed By: #### C TYRONE, CBCA, 05941-3, 85104-9, 90606-8 #### [facility] ([id number]) [address] [place] [address] 73123 Chloride [Moles/Vol] 101 mmol/L Normal 98-109 [facility] Comment on above: Performed By: #### C TYRONE, CBCA, 48061-6, 36492-2, 84442-3 #### [facility] ([id number]) [address] [place] [address] 13643 CO2 [Moles/Vol] 27 mmol/L Normal 22-[address] [facility] Comment on above: Performed By: #### C TYRONE, CBCA, 60527-8, 06107-8, 98416-1 #### [facility] ([id number]) [address] [place] [address] 34131 Creatinine [Mass/Vol] 1.15 mg/dL High 0.40-1.00 [facility] Comment on above: Result Comment: METH OD TRACEABLE TO IDMS STANDARD Performed By: #### C SHY HANSEN, 84722-1, 57483-4, 60346-5 #### [facility] ([id number]) [address] [place] [address] 64579 GFR/1.73 sq M.predicted among non-blacks MDRD (S/P/Bld) [Vol rate/Area] 48 mL/min/{1.73_m2} Low >[address] [facility] Comment on above: Result Comment: Reported eGFR is based on the CKD-EPI 2020 equation that does not use a race coefficient. Performed By: #### C TYRONE, SHY, 71538-2, 09512-8, 10753-7 #### [facility] ([id number]) [address] [place] [address] 50695 Glucose [Mass/Vol] 175 mg/dL High 65-99 [facility] Comment on above: Performed By: #### C SHY HANSEN, 86468-7, 65468-3, 41861-3 #### [facility] ([id number]) [address] [place] [address] 85040 Potassium [Moles/Vol] 3.4 mmol/L Low 3.5-5.0 [facility] Comment on above: Performed By: #### C SHY HANSEN, 43752-7, 30863-9, 52547-1 #### [facility] ([id number]) [address] [place] [address] 90667 Protein [Mass/Vol] 6.7 g/dL Normal 6.0-8.0 [facility] Comment on above: Performed By: #### C SHY HANSEN, 26533-6, 74352-0, 86463-9 #### [facility] ([id number]) [address] [place] [address] 77372 Sodium [Moles/Vol] 139 mmol/L Normal 134-146 [facility] Comment on above: Performed By: #### C SHY HANSEN, 88576-5, 83404-2, 50806-7 #### [facility] ([id number]) [address] [place] [address] 19637 Urea nitrogen [Mass/Vol] 22 mg/dL Normal 5-[address] [facility] Comment on above: Performed By: #### C MP, CBCA, 08463-0, 75291-4, 53600-3 #### [facility] ([id number]) [address] [place] [address] 32848 MR BRAIN WO CONTon 4 MR BRAIN WO CONT MR BRAIN WO CONT STUDY: MR BRAIN WO CONT INDICATION: Dizziness and giddiness; Vertigo. TECHNIQUE: * Routine multiplanar multisequence MR imaging of the brain was performed without intravenous contrast. FINDINGS: No evidence of acute infarct, intracranial hemorrhage, mass effect, midline shift or extra-axial fluid. Moderate diffuse parenchymal atrophy. Ventricles, sulci and cisterns are otherwise unremarkable. Moderate burden of T2/FLAIR hyperintense foci in the periventricular and subcortical white matter, may reflect chronic microangiopathy. Bilateral pseudophakia. Mild polypoid mucosal thickening of the right maxillary sinus. Temporal bones are clear. Major intracranial flow voids are unremarkable, limited by technique. IMPRESSION: * No evidence of acute intracranial abnormality, by MR. * Moderate atrophic and moderate chronic microvascular ischemic changes. Finalized by Bill Segura on 08/15/2023 5:[address] [facility] Office Visiton 07-11-2023 Follow-up visit [id number] Aliyah,Sophie orosco L 1940 F Date Provider Department Center 07/11/2023 Eitan-JOHNNA COLLINS BH CARD [facility] No family history on file Level of Service:10772 NE OFFICE/OUTPATIENT ESTABLISHED LOW MDM 20 MIN Normal [facility] CBC AND AUTO DIFFon 07-01-19 24 ABSOLUTE BASOPHIL 0.1 X10E9/L Normal 0.0-0.2 [facility] Comment on above: Performed By: #### C MP, CBCA, 57709-5, 78959-2, 57018-0 #### [facility] ([id number]) [address] [place] [address] 88610 ABSOLUTE NEUTROPHIL 5.9 X10E9/L Normal 1.5-6.6 [facility] Comment on above: Performed By: #### C MP, CBCA, 40241-7, 71203-9, 59493-8 #### [facility] ([id number]) [address] [place] [address] 45832 Basophils/100 WBC (Bld) 0.8 % Normal [facility] Comment on above: Performed By: #### C MP, CBCA, 04631-4, 20245-0, 08768-8 #### [facility] ([id number]) [address] [place] [address] 15301 Eosinophils (Bld) [#/Vol] 0.1 10*3/uL Normal 0.0-0.[address] [facility] Comment on above: Performed By: #### C MP, CBCA, 64224-5, 54541-8, 52630-6 #### [facility] ([id number]) [address] [place] [address] 99106 Eosinophils/100 WBC (Bld) 1.6 % Normal [facility] Comment on above: Performed By: #### C MP, CBCA, 41556-0, 29125-6, 81593-4 #### [facility] ([id number]) [address] [place] [address] 24921 Erythrocyte distribution width (RBC) [Ratio] 16.9 % High 11.5-15.[address] [facility] Comment on above: Performed By: #### C MP, CBCA, 07539-5, 49235-0, 38630-2 #### [facility] ([id number]) [address] [place] [address] 32388 Hematocrit (Bld) [Volume fraction] 36.2 % Normal 35-[address] [facility] Comment on above: Performed By: #### C MP, CBCA, 25455-5, 66911-1, 59528-0 #### [facility] ([id number]) [address] [place] [address] 17578 Hemoglobin (Bld) [Mass/Vol] 11.8 g/dL Normal 11.7-15.[address] [facility] Comment on above: Performed By: #### C MP, CBCA, 65379-6, 96361-5, 36351-0 #### [facility] ([id number]) [address] [place] [address] 68788 Lymphocytes (Bld) [#/Vol] 0.7 10*3/uL Low 1.0-3.[address] [facility] Comment on above: Performed By: #### C MP, CBCA, 69874-8, 40330-5, 09211-5 #### [facility] ([id number]) [address] [place] [address] 93906 Lymphocytes/100 WBC (Bld) 9.9 % Normal [facility] Comment on above: Performed By: #### C MP, CBCA, 39913-3, 28924-2, 58660-6 #### [facility] ([id number]) [address] [place] [address] 70213 MCH (RBC) [Entitic mass] 28.9 pg Normal 27-[address] [facility] Comment on above: Performed By: #### C MP, CBCA, 49697-4, 12340-1, 56556-7 #### [facility] ([id number]) [address] [place] [address] 43735 MCHC (RBC) [Mass/Vol] 32.7 g/dL Normal 32-36 [facility] Comment on above: Performed By: #### C MP, CBCA, 94850-5, 33457-1, 58527-0 #### [facility] ([id number]) [address] [place] [address] 71069 MCV (RBC) [Entitic vol] 89 fL Normal 80-[address] [facility] Comment on above: Performed By: #### C MP, CBCA, 83011-0, 80187-6, 65306-1 #### [facility] ([id number]) [address] [place] [address] 10937 Monocytes (Bld) [#/Vol] 0.4 10*3/uL Normal 0-0.[address] [facility] Comment on above: Performed By: #### C MP, CBCA, 30111-2, 21868-5, 31964-0 #### [facility] ([id number]) [address] [place] [address] 48855 Monocytes/100 WBC (Bld) 5.9 % Normal [facility] Comment on above: Performed By: #### C MP, CBCA, 56155-7, 95976-5, 70001-7 #### [facility] ([id number]) [address] [place] [address] 23935 Neutrophils/100 WBC (Bld) 81.8 % Normal [facility] Comment on above: Performed By: #### C MP, CBCA, 45546-6, 55374-1, 54951-3 #### [facility] ([id number]) [address] [place] [address] [place] [address] Platelet mean volume (Bld) [Entitic vol] 8.2 fL Normal 7-[address] [facility] Comment on above: Performed By: #### C MP, CBCA, 28633-4, 71452-5, 35728-0 #### [facility] ([id number]) [address] [place] [address] 79755 Platelets (Bld) [#/Vol] 151 10*3/uL Normal 150-[address] [facility] Comment on above: Performed By: #### C MP, CBCA, 11291-0, 42455-1, 71265-7 #### [facility] ([id number]) [address] [place] [address] 35873 RBC COUNT 4.08 X10E12/L Normal 3.80-5.[address] [facility] Comment on above: Performed By: #### C MP, CBCA, 93762-5, 55453-4, 24617-8 #### [facility] ([id number]) [address] [place] [address] 19470 WBC (Bld) [#/Vol] 7.2 10*3/uL Normal 4.0-11.0 [facility] Comment on above: Performed By: #### C MP, CBCA, 44245-3, 80451-4, 33376-5 #### [facility] ([id number]) [address] [place] [address] 19108 COMPREHENSIVE METABOLIC PANE Rigoberto 07-01-2023 Albumin [Mass/Vol] 3.7 g/dL Normal 3.2-5.3 [facility] Comment on above: Performed By: #### C MP, CBCA, 98567-1, 25844-5, 23969-4 #### [facility] ([id number]) [address] [place] [address] 37192 ALP [Catalytic activity/Vol] 91 U/L Normal 39-[address] [facility] Comment on above: Performed By: #### C MP, CBCA, 43019-9, 74006-8, 67095-9 #### [facility] ([id number]) [address] [place] [address] 51951 ALT [Catalytic activity/Vol] 20 U/L Normal 0-[address] [facility] Comment on above: Performed By: #### C MP, CBCA, 83609-3, 74549-5, 89115-2 #### [facility] ([id number]) [address] [place] [address] 16298 Anion gap [Moles/Vol] 9 mmol/L Normal 5-15 [facility] Comment on above: Performed By: #### C TYRONE, CBCA, 87117-9, 35014-0, 25314-8 #### [facility] ([id number]) [address] [place] [address] 59274 AST [Catalytic activity/Vol] 23 U/L Normal 0-[address] [facility] Comment on above: Performed By: #### C TYRONE, CBCA, 28249-1, 61849-7, 36965-3 #### [facility] ([id number]) [address] [place] [address] 27516 Bilirubin [Mass/Vol] 0.8 mg/dL Normal 0.3-1.2 [facility] Comment on above: Performed By: #### C TYRONE, CBCA, 08079-7, 28014-2, 93094-8 #### [facility] ([id number]) [address] [place] [address] 53870 Calcium [Mass/Vol] 8.9 mg/dL Normal 8.5-10.5 [facility] Comment on above: Performed By: #### C TYRONE, CBCA, 91544-0, 92718-6, 59080-6 #### [facility] ([id number]) [address] [place] [address] 57945 Chloride [Moles/Vol] 100 mmol/L Normal 98-109 [facility] Comment on above: Performed By: #### C TYRONE, CBCA, 61875-0, 68994-5, 53166-6 #### [facility] ([id number]) [address] [place] [address] 41692 CO2 [Moles/Vol] 29 mmol/L Normal 22-[address] [facility] Comment on above: Performed By: #### C TYRONE, LILIAA, 93366-1, 40146-7, 92469-3 #### [facility] ([id number]) [address] [place] [address] 58654 Creatinine [Mass/Vol] 1.31 mg/dL High 0.40-1.00 [facility] Comment on above: Result Comment: METH OD TRACEABLE TO IDMS STANDARD Performed By: #### C TYRONE, CBCA, 14682-1, 32915-9, 64729-9 #### [facility] ([id number]) [address] [place] [address] 95762 GFR/1.73 sq M.predicted among non-blacks MDRD (S/P/Bld) [Vol rate/Area] 41 mL/min/{1.73_m2} Low >[address] [facility] Comment on above: Result Comment: Reported eGFR is based on the CKD-EPI 2020 equation that does not use a race coefficient. Performed By: #### C TYRONE, LILIAA, 18511-9, 21509-3, 49528-6 #### [facility] ([id number]) [address] [place] [address] 81002 Glucose [Mass/Vol] 156 mg/dL High 65-99 [facility] Comment on above: Performed By: #### C TYRONE, CBCA, 36720-6, 82686-8, 87012-6 #### [facility] ([id number]) [address] [place] [address] 42860 Potassium [Moles/Vol] 3.7 mmol/L Normal 3.5-5.0 [facility] Comment on above: Performed By: #### C TYRONE, CBCA, 47753-5, 00445-7, 47843-4 #### [facility] ([id number]) [address] [place] [address] 16414 Protein [Mass/Vol] 6.8 g/dL Normal 6.0-8.0 [facility] Comment on above: Performed By: #### C TYRONE, CBCA, 79824-8, 80447-7, 04600-1 #### [facility] ([id number]) [address] [place] [address] 84030 Sodium [Moles/Vol] 138 mmol/L Normal 134-146 [facility] Comment on above: Performed By: #### C TYRONE, CBCA, 58735-6, 12959-8, 90710-7 #### [facility] ([id number]) [address] [place] [address] 17129 Urea nitrogen [Mass/Vol] 28 mg/dL High 5-[address] [facility] Comment on above: Performed By: #### C TYRONE, CBCA, 73727-3, 35222-6, 17899-9 #### [facility] ([id number]) [address] [place] [address] 07509 Lactate (P chloe) [Moles/Vol]o n 07-01-2023 LACTATE W/REFLEX 2.4 mmol/L High 0.4-2.0 [facility] Comment on above: Performed By: #### C TRYONE, CBCA, 61029-6, 15111-5, 40502-7 #### [facility] ([id number]) [address] [place] [address] 94093 MAGNESIUMon 07-01-2023 Magnesium [Mass/Vol] 2.1 mg/dL Normal 1.8-2.6 [facility] Comment on above: Performed By: #### C TYRONE, CBCA, 56108-4, 66996-1, 79990-8 #### [facility] ([id number]) [address] [place] [address] 50152 Natriuretic peptide B [Mass/ Vol]on 07-01-2023 Natriuretic peptide B (Bld) [Mass/Vol] 201 pg/mL High <100.[address] [facility] Comment on above: Performed By: #### C MP, CBCA, 98912-7, 47298-6, 77396-7 #### [facility] ([id number]) [address] [place] [address] 66233 PROTIME AND INRon 07-01-2023 INR Coag (PPP) [Relative time] 0.9 {INR} Normal 0.8-1.[address] [facility] Comment on above: Performed By: #### C MP, CBCA, 61372-1, 09697-2, 97871-1 #### [facility] ([id number]) [address] [place] [address] 75111 PT Coag (PPP) [Time] 10.9 s Normal 9.8-13.2 [facility] Comment on above: Result Comment: NEW REFERENCE RANGE Performed By: #### C MP, CBCA, 96454-5, 32228-5, 66754-7 #### [facility] ([id number]) [address] [place] [address] 21555 TROPONIN Ion 07-01-2023 Troponin I.cardiac [Mass/Vol] ng/mL Normal 0.00-0.[address] [facility] Comment on above: Performed By: #### C MP, CBCA, 65133-7, 56458-6, 97620-2 #### [facility] ([id number]) [address] [place] [address] 39686 aPTT Coag (PPP) [Time]on aPTT Coag (Bld) [Time] 26 s Normal 26-37 [facility] Comment on above: Result Comment: NEW REFERENCE RANGE Performed By: #### C MP, CBCA, 26342-3, 57769-4, 43578-8 #### [facility] ([id number]) [address] [place] [address] Glucose Glucometer (BldC) [M ass/Vol]on 06-25-2023 Glucose [Mass/Vol] 233 mg/dL High 65-99 [facility] BASIC METABOLIC PANLon 06-24 Anion gap [Moles/Vol] 9 mmol/L Normal 5-15 [facility] Comment on above: Performed By: #### C MP, CBCA, 65221-1, 46644-3, 43489-4 #### [facility] ([id number]) [address] [place] [address] 58086 Calcium [Mass/Vol] 8.2 mg/dL Low 8.5-10.5 [facility] Comment on above: Performed By: #### C TYRONE, CBCA, 22584-8, 60689-3, 78794-0 #### [facility] ([id number]) [address] [place] [address] 37444 Chloride [Moles/Vol] 92 mmol/L Low 98-109 [facility] Comment on above: Performed By: #### C TYRONE, CBCA, 71637-5, 01853-1, 55313-8 #### [facility] ([id number]) [address] [place] [address] 83758 CO2 [Moles/Vol] 31 mmol/L Normal 22-[address] [facility] Comment on above: Performed By: #### C MP, CBCA, 35832-7, 37432-0, 00772-6 #### [facility] ([id number]) [address] [place] [address] 70290 Creatinine [Mass/Vol] 2.07 mg/dL High 0.40-1.00 [facility] Comment on above: Result Comment: METH OD TRACEABLE TO IDMS STANDARD Performed By: #### C TYRONE, CBCA, 96999-1, 97380-7, 70514-5 #### [facility] ([id number]) [address] [place] [address] 75342 GFR/1.73 sq M.predicted among non-blacks MDRD (S/P/Bld) [Vol rate/Area] 24 mL/min/{1.73_m2} Low >[address] [facility] Comment on above: Result Comment: Reported eGFR is based on the CKD-EPI 2020 equation that does not use a race coefficient. Performed By: #### C SHY HANSEN, 95255-9, 01463-3, 62470-4 #### [facility] ([id number]) [address] [place] [address] 67864 Glucose [Mass/Vol] 154 mg/dL High 65-99 [facility] Comment on above: Performed By: #### C SHY HANSEN, 47690-8, 16292-2, 56019-7 #### [facility] ([id number]) [address] [place] [address] 28451 Potassium [Moles/Vol] 3.7 mmol/L Normal 3.5-5.0 [facility] Comment on above: Performed By: #### C SHY HANSEN, 91096-3, 47939-7, 60992-0 #### [facility] ([id number]) [address] [place] [address] 20428 Sodium [Moles/Vol] 132 mmol/L Low 134-146 [facility] Comment on above: Performed By: #### C SHY HANSEN, 40375-6, 52210-1, 54662-7 #### [facility] ([id number]) [address] [place] [address] 78865 Urea nitrogen [Mass/Vol] 37 mg/dL High 5-[address] [facility] Comment on above: Performed By: #### C SHY HANSEN, 61285-7, 27406-6, 61620-8 #### [facility] ([id number]) [address] [place] [address] Anion gap [Moles/Vol] 11 mmol/L Normal 5-15 [facility] Comment on above: Performed By: #### C TYRONE, CBCA, 13246-0, 06502-6, 57343-9 #### [facility] ([id number]) [address] [place] [address] 88293 Calcium [Mass/Vol] 8.5 mg/dL Normal 8.5-10.5 [facility] Comment on above: Performed By: #### C TYRONE, CBCA, 30991-1, 92197-4, 58721-1 #### [facility] ([id number]) [address] [place] [address] 81418 Chloride [Moles/Vol] 92 mmol/L Low 98-109 [facility] Comment on above: Performed By: #### C TYRONE, CBCA, 66177-3, 81455-6, 56036-2 #### [facility] ([id number]) [address] [place] [address] 30670 CO2 [Moles/Vol] 33 mmol/L High 22-[address] [facility] Comment on above: Performed By: #### C TYRONE, CBCA, 71685-6, 60573-9, 59410-1 #### [facility] ([id number]) [address] [place] [address] 13679 Creatinine [Mass/Vol] 1.97 mg/dL High 0.40-1.00 [facility] Comment on above: Result Comment: METH OD TRACEABLE TO IDMS STANDARD Performed By: #### C TYRONE, CBCA, 14353-2, 73811-6, 26564-9 #### [facility] ([id number]) [address] [place] [address] 21389 GFR/1.73 sq M.predicted among non-blacks MDRD (S/P/Bld) [Vol rate/Area] 25 mL/min/{1.73_m2} Low >[address] [facility] Comment on above: Result Comment: Reported eGFR is based on the CKD-EPI 2020 equation that does not use a race coefficient. Performed By: #### C TYRONE, CBCA, 06900-6, 79110-8, 77438-4 #### [facility] ([id number]) [address] [place] [address] 94549 Glucose [Mass/Vol] 245 mg/dL High 65-99 [facility] Comment on above: Performed By: #### C TYRONE, CBCA, 10735-0, 03289-6, 89431-3 #### [facility] ([id number]) [address] [place] [address] 16816 Potassium [Moles/Vol] 3.6 mmol/L Normal 3.5-5.0 [facility] Comment on above: Performed By: #### C TYRONE, CBCA, 30699-9, 29837-6, 91769-9 #### [facility] ([id number]) [address] [place] [address] 29253 Sodium [Moles/Vol] 136 mmol/L Normal 134-146 [facility] Comment on above: Performed By: #### C TYRONE, CBCA, 73058-0, 39332-9, 69913-3 #### [facility] ([id number]) [address] [place] [address] 55789 Urea nitrogen [Mass/Vol] 35 mg/dL High 5-[address] [facility] Comment on above: Performed By: #### C TYRONE, CBCA, 60956-4, 95202-6, 05220-6 #### [facility] ([id number]) [address] [place] [address] 46505 CBC AND AUTO DIFFon 06-24-19 24 ABSOLUTE BASOPHIL 0.0 X10E9/L Normal 0.0-0.2 [facility] Comment on above: Performed By: #### C TYRONE, CBCA, 59643-8, 30580-8, 53573-2 #### [facility] ([id number]) [address] [place] [address] 94931 ABSOLUTE NEUTROPHIL 5.2 X10E9/L Normal 1.5-6.6 [facility] Comment on above: Performed By: #### C MP, CBCA, 43099-5, 13081-6, 69680-1 #### [facility] ([id number]) [address] [place] [address] 38048 Basophils/100 WBC (Bld) 0.6 % Normal [facility] Comment on above: Performed By: #### C MP, CBCA, 99043-1, 34377-6, 30556-6 #### [facility] ([id number]) [address] [place] [address] 20644 Eosinophils (Bld) [#/Vol] 0.2 10*3/uL Normal 0.0-0.[address] [facility] Comment on above: Performed By: #### C MP, CBCA, 83357-9, 73687-4, 86449-5 #### [facility] ([id number]) [address] [place] [address] 29451 Eosinophils/100 WBC (Bld) 2.4 % Normal [facility] Comment on above: Performed By: #### C MP, CBCA, 98530-5, 57079-3, 32244-4 #### [facility] ([id number]) [address] [place] [address] 78842 Erythrocyte distribution width (RBC) [Ratio] 17.7 % High 11.5-15.[address] [facility] Comment on above: Performed By: #### C MP, CBCA, 70341-6, 25175-2, 56800-8 #### [facility] ([id number]) [address] [place] [address] 06269 Hematocrit (Bld) [Volume fraction] 36.7 % Normal 35-[address] [facility] Comment on above: Performed By: #### C MP, CBCA, 53492-6, 04585-8, 94026-4 #### [facility] ([id number]) [address] [place] [address] 80010 Hemoglobin (Bld) [Mass/Vol] 12.1 g/dL Normal 11.7-15.[address] [facility] Comment on above: Performed By: #### C MP, CBCA, 45358-1, 21437-9, 91263-3 #### [facility] ([id number]) [address] [place] [address] 77636 Lymphocytes (Bld) [#/Vol] 0.7 10*3/uL Low 1.0-3.[address] [facility] Comment on above: Performed By: #### C MP, CBCA, 68916-2, 54739-6, 43093-6 #### [facility] ([id number]) [address] [place] [address] 90727 Lymphocytes/100 WBC (Bld) 11.0 % Normal [facility] Comment on above: Performed By: #### C MP, CBCA, 41357-7, 96104-3, 11523-7 #### [facility] ([id number]) [address] [place] [address] 74784 MCH (RBC) [Entitic mass] 29.2 pg Normal 27-[address] [facility] Comment on above: Performed By: #### C MP, CBCA, 55018-2, 79717-4, 97469-3 #### [facility] ([id number]) [address] [place] [address] 06050 MCHC (RBC) [Mass/Vol] 32.9 g/dL Normal 32-36 [facility] Comment on above: Performed By: #### C MP, CBCA, 93175-3, 10812-6, 11925-8 #### [facility] [facility] ([id number]) [address] [place] [address] 67603 MCV (RBC) [Entitic vol] 89 fL Normal 80-[address] [facility] Comment on above: Performed By: #### C MP, CBCA, 90733-8, 15862-3, 49488-4 #### [facility] ([id number]) [address] [place] [address] 29751 Monocytes (Bld) [#/Vol] 0.5 10*3/uL Normal 0-0.[address] [facility] Comment on above: Performed By: #### C MP, CBCA, 53319-1, 83056-6, 62642-2 #### [facility] ([id number]) [address] [place] [address] 85416 Monocytes/100 WBC (Bld) 7.3 % Normal [facility] Comment on above: Performed By: #### C MP, CBCA, 65950-5, 56558-9, 76627-9 #### [facility] ([id number]) [address] [place] [address] 97882 Neutrophils/100 WBC (Bld) 78.7 % Normal [facility] Comment on above: Performed By: #### C MP, CBCA, 72267-7, 61908-6, 34269-2 #### [facility] ([id number]) [address] [place] [address] 59511 Platelet mean volume (Bld) [Entitic vol] 7.9 fL Normal 7-[address] [facility] Comment on above: Performed By: #### C MP, CBCA, 36273-7, 75355-7, 99382-3 #### [facility] ([id number]) [address] [place] [address] 85137 Platelets (Bld) [#/Vol] 117 10*3/uL Low 150-[address] [facility] Comment on above: Performed By: #### C MP, CBCA, 88256-3, 84606-8, 14313-6 #### [facility] ([id number]) [address] [place] [address] 44924 RBC COUNT 4.15 X10E12/L Normal 3.80-5.[address] [facility] Comment on above: Performed By: #### C MP, CBCA, 54511-5, 04430-3, 07970-4 #### [facility] ([id number]) [address] [place] [address] 21694 WBC (Bld) [#/Vol] 6.6 10*3/uL Normal 4.0-11.0 [facility] Comment on above: Performed By: #### C MP, CBCA, 37443-7, 72058-0, 75689-8 #### [facility] ([id number]) [address] [place] [address] 69407 Glucose Glucometer (BldC) [M ass/Vol]on 06-24-2023 Glucose [Mass/Vol] 229 mg/dL High 65-99 [facility] BASIC METABOLIC PANLon 06-23 Anion gap [Moles/Vol] 10 mmol/L Normal 5-15 [facility] Comment on above: Performed By: #### C MP, CBCA, 66996-3, 45952-5, 20956-7 #### [facility] ([id number]) [address] [place] [address] 51637 Calcium [Mass/Vol] 9.0 mg/dL Normal 8.5-10.5 [facility] Comment on above: Performed By: #### C MP, CBCA, 70509-0, 61113-5, 43122-1 #### [facility] ([id number]) [address] [place] [address], [place] [address] Chloride [Moles/Vol] 95 mmol/L Low 98-109 [facility] Comment on above: Performed By: #### C TYRONE, SHY, 78836-1, 66858-5, 93281-8 #### [facility] ([id number]) [address] [place] [address] 00895 CO2 [Moles/Vol] 33 mmol/L High 22-[address] [facility] Comment on above: Performed By: #### C TYRONE, LILIAA, 10936-0, 53219-8, 12614-3 #### [facility] ([id number]) [address] [place] [address] 90731 Creatinine [Mass/Vol] 1.70 mg/dL High 0.40-1.00 [facility] Comment on above: Result Comment: METH OD TRACEABLE TO IDMS STANDARD Performed By: #### C SHY HANSEN, 70196-6, 29278-4, 12488-4 #### [facility] ([id number]) [address] [place] [address] 77595 GFR/1.73 sq M.predicted among non-blacks MDRD (S/P/Bld) [Vol rate/Area] 30 mL/min/{1.73_m2} Low >[address] [facility] Comment on above: Result Comment: Reported eGFR is based on the CKD-EPI 2020 equation that does not use a race coefficient. Performed By: #### C TYRONE, LILIAA, 98716-0, 21951-4, 28076-1 #### [facility] ([id number]) [address] [place] [address] 16421 Glucose [Mass/Vol] 188 mg/dL High 65-99 [facility] Comment on above: Performed By: #### C TYRONE, LILIAA, 37068-2, 12072-1, 50752-8 #### [facility] ([id number]) [address] [place] [address] 20550 Potassium [Moles/Vol] 3.3 mmol/L Low 3.5-5.0 [facility] Comment on above: Performed By: #### C MP, CBCA, 45120-5, 94974-1, 74815-7 #### [facility] ([id number]) [address] [place] [address] 03898 Sodium [Moles/Vol] 138 mmol/L Normal 134-146 [facility] Comment on above: Performed By: #### C MP, CBCA, 43812-7, 38724-8, 65055-4 #### [facility] ([id number]) [address] [place] [address] 37627 Urea nitrogen [Mass/Vol] 30 mg/dL High 5-[address] [facility] Comment on above: Performed By: #### C MP, CBCA, 08410-5, 64015-2, 58253-8 #### [facility] ([id number]) [address] [place] [address] 51690 CBC AND AUTO DIFFon 06-23-19 24 ABSOLUTE BASOPHIL 0.0 X10E9/L Normal 0.0-0.2 [facility] Comment on above: Performed By: #### C MP, CBCA, 48696-0, 71706-6, 98009-9 #### [facility] ([id number]) [address] [place] [address] 47458 ABSOLUTE NEUTROPHIL 5.3 X10E9/L Normal 1.5-6.6 [facility] Comment on above: Performed By: #### C MP, CBCA, 78907-5, 79555-9, 17195-8 #### [facility] ([id number]) [address] [place] [address] 77465 Basophils/100 WBC (Bld) 0.7 % Normal [facility] Comment on above: Performed By: #### C MP, CBCA, 02834-1, 49603-5, 06455-1 #### [facility] ([id number]) [address] [place] [address] 36157 Eosinophils (Bld) [#/Vol] 0.1 10*3/uL Normal 0.0-0.[address] [facility] Comment on above: Performed By: #### C MP, CBCA, 99795-6, 18820-0, 69617-1 #### [facility] ([id number]) [address] [place] [address] 84946 Eosinophils/100 WBC (Bld) 2.2 % Normal [facility] Comment on above: Performed By: #### C MP, CBCA, 82001-4, 24064-8, 14701-1 #### [facility] ([id number]) [address] [place] [address] 72504 Erythrocyte distribution width (RBC) [Ratio] 18.0 % High 11.5-15.[address] [facility] Comment on above: Performed By: #### C MP, CBCA, 23254-9, 06971-2, 76510-7 #### [facility] ([id number]) [address] [place] [address] 25114 Hematocrit (Bld) [Volume fraction] 35.5 % Normal 35-[address] [facility] Comment on above: Performed By: #### C MP, CBCA, 11491-6, 02674-7, 13489-3 #### [facility] ([id number]) [address] [place] [address] 34278 Hemoglobin (Bld) [Mass/Vol] 11.8 g/dL Normal 11.7-15.[address] [facility] Comment on above: Performed By: #### C MP, CBCA, 70266-4, 16727-0, 63662-8 #### [facility] ([id number]) [address] [place] [address] 58798 Lymphocytes (Bld) [#/Vol] 0.7 10*3/uL Low 1.0-3.[address] [facility] Comment on above: Performed By: #### C MP, CBCA, 50998-7, 20009-7, 54445-9 #### [facility] ([id number]) [address] [place] [address] 83780 Lymphocytes/100 WBC (Bld) 10.8 % Normal [facility] Comment on above: Performed By: #### C MP, CBCA, 42716-5, 79516-1, 19627-3 #### [facility] ([id number]) [address] [place] [address] 07759 MCH (RBC) [Entitic mass] 29.2 pg Normal 27-[address] [facility] Comment on above: Performed By: #### C TYRONE, CBCA, 50892-1, 39430-2, 28747-8 #### [facility] ([id number]) [address] [place] [address] 07940 MCHC (RBC) [Mass/Vol] 33.3 g/dL Normal 32-36 [facility] Comment on above: Performed By: #### C TYRONE, CBCA, 22977-1, 56922-4, 40817-0 #### [facility] ([id number]) [address] [place] [address] 08251 MCV (RBC) [Entitic vol] 88 fL Normal 80-[address] [facility] Comment on above: Performed By: #### C MP, CBCA, 43384-5, 47078-5, 24873-9 #### [facility] ([id number]) [address] [place] [address] 62560 Monocytes (Bld) [#/Vol] 0.5 10*3/uL Normal 0-0.[address] [facility] Comment on above: Performed By: #### C MP, CBCA, 70189-5, 81352-9, 72121-6 #### [facility] ([id number]) [address] [place] [address] 63146 Monocytes/100 WBC (Bld) 7.0 % Normal [facility] Comment on above: Performed By: #### C MP, CBCA, 34615-3, 07049-8, 70830-3 #### [facility] ([id number]) [address] [place] [address] 28239 Neutrophils/100 WBC (Bld) 79.3 % Normal [facility] Comment on above: Performed By: #### C MP, CBCA, 65959-9, 94634-3, 99952-7 #### [facility] ([id number]) [address] [place] [address] 45926 Platelet mean volume (Bld) [Entitic vol] 8.4 fL Normal 7-[address] [facility] Comment on above: Performed By: #### C MP, CBCA, 82752-6, 20348-5, 70596-2 #### [facility] ([id number]) [address] [place] [address] 44237 Platelets (Bld) [#/Vol] 114 10*3/uL Low 150-[address] [facility] Comment on above: Performed By: #### C MP, CBCA, 78258-9, 13734-8, 58171-1 #### [facility] ([id number]) [address] [place] [address] 18051 RBC COUNT 4.04 X10E12/L Normal 3.80-5.[address] [facility] Comment on above: Performed By: #### C MP, CBCA, 11880-9, 50780-2, 78849-7 #### [facility] ([id number]) [address] [place] [address], [place] [address] WBC (Bld) [#/Vol] 6.7 10*3/uL Normal 4.0-11.0 [facility] Comment on above: Performed By: #### C SHY HANSEN, 34868-2, 28334-2, 07121-9 #### [facility] ([id number]) [address] [place] [address] 65536 Glucose Glucometer (BldC) [M ass/Vol]on 06-23-2023 Glucose [Mass/Vol] 114 mg/dL High 65-99 [facility] Glucose [Mass/Vol] 201 mg/dL High 65-99 [facility] Glucose [Mass/Vol] 188 mg/dL High 65-99 [facility] MAGNESIUMon 06-23-2023 Magnesium [Mass/Vol] 2.3 mg/dL Normal 1.8-2.6 [facility] Comment on above: Performed By: #### C SHY HANSEN, 21429-8, 88411-5, 49344-3 #### [facility] ([id number]) [address] [place] [address] 62744 Magnesium [Mass/Vol] 1.9 mg/dL Normal 1.8-2.6 [facility] Comment on above: Performed By: #### C SHY HANSEN, 00314-0, 69969-4, 94919-3 #### [facility] ([id number]) [address] [place] [address] 19840 POTASSIUMon 06-23-2023 Potassium [Moles/Vol] 3.5 mmol/L Normal 3.5-5.0 [facility] Comment on above: Performed By: #### C SHY HANSEN, 52041-1, 29604-6, 39383-1 #### [facility] ([id number]) [address] [place] [address] 63785 BASIC METABOLIC PANLon 06-22 Anion gap [Moles/Vol] 11 mmol/L Normal 5-15 [facility] Comment on above: Performed By: #### C TYRONE, CBCA, 76872-8, 53004-8, 98303-9 #### [facility] ([id number]) [address] [place] [address] 50246 Calcium [Mass/Vol] 9.0 mg/dL Normal 8.5-10.5 [facility] Comment on above: Performed By: #### C TYRONE, CBCA, 50980-6, 96729-5, 66034-7 #### [facility] ([id number]) [address] [place] [address] 92110 Chloride [Moles/Vol] 98 mmol/L Normal 98-109 [facility] Comment on above: Performed By: #### C TYRONE, CBCA, 75439-5, 32895-1, 36164-7 #### [facility] ([id number]) [address] [place] [address] 17569 CO2 [Moles/Vol] 30 mmol/L Normal 22-[address] [facility] Comment on above: Performed By: #### C TYRONE, CBCA, 81129-6, 87897-5, 95670-1 #### [facility] ([id number]) [address] [place] [address] 53546 Creatinine [Mass/Vol] 1.48 mg/dL High 0.40-1.00 [facility] Comment on above: Result Comment: METH OD TRACEABLE TO IDMS STANDARD Performed By: #### C TYRONE, CBCA, 27852-1, 18096-4, 03872-2 #### [facility] ([id number]) [address] [place] [address] 69409 GFR/1.73 sq M.predicted among non-blacks MDRD (S/P/Bld) [Vol rate/Area] 36 mL/min/{1.73_m2} Low >[address] [facility] Comment on above: Result Comment: Reported eGFR is based on the CKD-EPI 2020 equation that does not use a race coefficient. Performed By: #### C MP, CBCA, 11389-9, 18672-8, 81564-6 #### [facility] ([id number]) [address] [place] [address] 16454 Glucose [Mass/Vol] 243 mg/dL High 65-99 [facility] Comment on above: Performed By: #### C MP, CBCA, 89139-4, 77990-4, 83301-6 #### [facility] ([id number]) [address] [place] [address] 22750 Potassium [Moles/Vol] 3.8 mmol/L Normal 3.5-5.0 [facility] Comment on above: Performed By: #### C MP, CBCA, 50384-9, 28659-5, 16881-5 #### [facility] ([id number]) [address] [place] [address] 39351 Sodium [Moles/Vol] 139 mmol/L Normal 134-146 [facility] Comment on above: Performed By: #### C MP, CBCA, 76482-5, 98530-3, 63850-5 #### [facility] ([id number]) [address] [place] [address] 04687 Urea nitrogen [Mass/Vol] 24 mg/dL Normal 5-[address] [facility] Comment on above: Performed By: #### C MP, CBCA, 61158-9, 78776-7, 92211-9 #### [facility] ([id number]) [address] [place] [address] 14734 COMPLETE BLOOD COUNTon 06-22 Erythrocyte distribution width (RBC) [Ratio] 18.1 % High 11.5-15.[address] [facility] Comment on above: Performed By: #### C BC, DIFFA, #### [facility] ([id number]) [address] [place] [address] 80123 Hematocrit (Bld) [Volume fraction] 35.5 % Normal 35-[address] [facility] Comment on above: Performed By: #### Raul BERKOWITZ DIFFA, #### [facility] ([id number]) [address] [place] [address] 70078 Hemoglobin (Bld) [Mass/Vol] 11.7 g/dL Normal 11.7-15.[address] [facility] Comment on above: Performed By: #### Raul BERKOWITZ DIFFA, #### [facility] ([id number]) [address] [place] [address] 16459 MCH (RBC) [Entitic mass] 29.0 pg Normal 27-[address] [facility] Comment on above: Performed By: #### Raul BERKOWITZ DIFFA, #### [facility] ([id number]) [address] [place] [address] 39905 MCHC (RBC) [Mass/Vol] 33.1 g/dL Normal 32-36 [facility] Comment on above: Performed By: #### Raul BERKOWITZ DIFFA, #### [facility] ([id number]) [address] [place] [address] 57674 MCV (RBC) [Entitic vol] 88 fL Normal 80-[address] [facility] Comment on above: Performed By: #### Raul BERKOWITZ DIFFA, #### [facility] ([id number]) [address] [place] [address] 67100 Platelet mean volume (Bld) [Entitic vol] 8.1 fL Normal 7-[address] [facility] Comment on above: Performed By: #### Raul BERKOWITZ DIFFA, #### [facility] ([id number]) [address] [place] [address] 61943 Platelets (Bld) [#/Vol] 135 10*3/uL Low 150-[address] [facility] Comment on above: Performed By: #### Raul BERKOWITZ, DIFFA, #### [facility] ([id number]) [address] [place] [address] 56023 RBC COUNT 4.05 X10E12/L Normal 3.80-5.[address] [facility] Comment on above: Performed By: #### Raul BERKOWITZ, DIFFA, #### [facility] ([id number]) [address] [place] [address] 55283 WBC (Bld) [#/Vol] 7.6 10*3/uL Normal 4.0-11.0 [facility] Comment on above: Performed By: #### Raul BERKOWITZ, DIFFA, 43264-8 #### [facility] ([id number]) [address] [place] [address] 43823 DIFFERENTIALon 06-22-2023 ABSOLUTE BASOPHIL 0.1 X10E9/L Normal 0.0-0.2 [facility] Comment on above: Performed By: #### Raul BERKOWITZ, DIFFA, 03169-8 #### [facility] ([id number]) [address] [place] [address] 28426 ABSOLUTE NEUTROPHIL 6.1 X10E9/L Normal 1.5-6.6 [facility] Comment on above: Performed By: #### Raul BERKOWITZ, DIFFA, 35896-6 #### [facility] ([id number]) [address] [place] [address] 51584 Basophils/100 WBC (Bld) 1.3 % Normal [facility] Comment on above: Performed By: #### Raul BERKOWITZ, DIFFA, 09014-7 #### [facility] ([id number]) [address] [place] [address] 02872 Eosinophils (Bld) [#/Vol] 0.1 10*3/uL Normal 0.0-0.[address] [facility] Comment on above: Performed By: #### Raul BERKOWITZ DIFFA, #### [facility] ([id number]) [address] [place] [address] 54395 Eosinophils/100 WBC (Bld) 1.7 % Normal [facility] Comment on above: Performed By: #### Raul BERKOWITZ DIFFA, #### [facility] ([id number]) [address] [place] [address] 49804 Lymphocytes (Bld) [#/Vol] 0.7 10*3/uL Low 1.0-3.[address] [facility] Comment on above: Performed By: #### Raul BERKOWITZ DIFFKlaus, #### [facility] ([id number]) [address] [place] [address] 37344 Lymphocytes/100 WBC (Bld) 9.8 % Normal [facility] Comment on above: Performed By: #### Raul BERKOWITZ DIFFA, #### [facility] ([id number]) [address] [place] [address] 99300 Monocytes (Bld) [#/Vol] 0.5 10*3/uL Normal 0-0.[address] [facility] Comment on above: Performed By: #### Raul BERKOWITZ DIFFA, #### [facility] ([id number]) [address] [place] [address] 60570 Monocytes/100 WBC (Bld) 6.8 % Normal [facility] Comment on above: Performed By: #### Raul BERKOWITZ DIFFA, #### [facility] ([id number]) [address] [place] [address] 15173 Neutrophils/100 WBC (Bld) 80.4 % Normal [facility] Comment on above: Performed By: #### C BC, DIFFA, 86009-6 #### [facility] ([id number]) [address] [place] [address] 44603 Glucose Glucometer (BldC) [M ass/Vol]on 06-22-2023 Glucose [Mass/Vol] 176 mg/dL High 65-99 [facility] Glucose [Mass/Vol] 183 mg/dL High 65-99 [facility] MAGNESIUMon 06-22-2023 Magnesium [Mass/Vol] 2.0 mg/dL Normal 1.8-2.6 [facility] Comment on above: Performed By: #### C MP, CBCA, 34632-6, 64978-3, 28984-8 #### [facility] ([id number]) [address] [place] [address] 56000 CBC AND AUTO DIFFon 06-21-19 ABSOLUTE BASOPHIL 0.1 X10E9/L Normal 0.0-0.2 [facility] Comment on above: Performed By: #### C MP, CBCA, 40939-6, 40068-8, 18460-8 #### [facility] ([id number]) [address] [place] [address] 36757 ABSOLUTE NEUTROPHIL 6.0 X10E9/L Normal 1.5-6.6 [facility] Comment on above: Performed By: #### C MP, CBCA, 99320-2, 21689-9, 01208-6 #### [facility] ([id number]) [address] [place] [address] 26970 Basophils/100 WBC (Bld) 0.9 % Normal [facility] Comment on above: Performed By: #### C MP, CBCA, 51931-8, 23852-1, 59953-6 #### [facility] ([id number]) [address] [place] [address] 81941 Eosinophils (Bld) [#/Vol] 0.1 10*3/uL Normal 0.0-0.[address] [facility] Comment on above: Performed By: #### C MP, CBCA, 85618-9, 56133-5, 14169-5 #### [facility] ([id number]) [address] [place] [address] 24169 Eosinophils/100 WBC (Bld) 1.5 % Normal [facility] Comment on above: Performed By: #### C MP, CBCA, 11349-1, 66235-9, 72489-8 #### [facility] ([id number]) [address] [place] [address] 22630 Erythrocyte distribution width (RBC) [Ratio] 17.6 % High 11.5-15.[address] [facility] Comment on above: Performed By: #### C MP, CBCA, 48887-2, 91968-4, 50426-7 #### [facility] ([id number]) [address] [place] [address] 09813 Hematocrit (Bld) [Volume fraction] 37.3 % Normal 35-[address] [facility] Comment on above: Performed By: #### C MP, CBCA, 47184-7, 89688-2, 05954-1 #### [facility] ([id number]) [address] [place] [address] 27549 Hemoglobin (Bld) [Mass/Vol] 12.4 g/dL Normal 11.7-15.[address] [facility] Comment on above: Performed By: #### C MP, CBCA, 05326-2, 66063-7, 34512-7 #### [facility] ([id number]) [address] [place] [address] 79688 Lymphocytes (Bld) [#/Vol] 0.9 10*3/uL Low 1.0-3.[address] [facility] Comment on above: Performed By: #### C MP, CBCA, 84829-3, 50177-3, 73108-6 #### [facility] ([id number]) [address] [place] [address] 10882 Lymphocytes/100 WBC (Bld) 12.3 % Normal [facility] Comment on above: Performed By: #### C MP, CBCA, 13135-7, 71016-9, 48145-3 #### [facility] ([id number]) [address] [place] [address] 48248 MCH (RBC) [Entitic mass] 29.1 pg Normal 27-[address] [facility] Comment on above: Performed By: #### C MP, CBCA, 45696-0, 12263-0, 34998-9 #### [facility] ([id number]) [address] [place] [address] 21487 MCHC (RBC) [Mass/Vol] 33.2 g/dL Normal 32-36 [facility] Comment on above: Performed By: #### C MP, CBCA, 34498-5, 84283-4, 00753-0 #### [facility] ([id number]) [address] [place] [address] 95509 MCV (RBC) [Entitic vol] 88 fL Normal 80-[address] [facility] Comment on above: Performed By: #### C MP, CBCA, 59692-1, 82434-9, 81232-8 #### [facility] ([id number]) [address] [place] [address] 78483 Monocytes (Bld) [#/Vol] 0.4 10*3/uL Normal 0-0.[address] [facility] Comment on above: Performed By: #### C MP, CBCA, 72922-6, 90260-0, 80611-7 #### [facility] ([id number]) [address] [place] [address] 99879 Monocytes/100 WBC (Bld) 5.7 % Normal [facility] Comment on above: Performed By: #### C MP, CBCA, 84706-5, 22751-5, 48730-5 #### [facility] ([id number]) [address] [place] [address] 33631 Neutrophils/100 WBC (Bld) 79.6 % Normal [facility] Comment on above: Performed By: #### C MP, CBCA, 89570-0, 21977-2, 50800-2 #### [facility] ([id number]) [address] [place] [address] 53149 Platelet mean volume (Bld) [Entitic vol] 8.6 fL Normal 7-[address] [facility] Comment on above: Performed By: #### C MP, CBCA, 21651-7, 38720-7, 10188-3 #### [facility] ([id number]) [address] [place] [address] 37945 Platelets (Bld) [#/Vol] 129 10*3/uL Low 150-[address] [facility] Comment on above: Performed By: #### C MP, CBCA, 81365-2, 31688-9, 21121-4 #### [facility] ([id number]) [address] [place] [address] 61043 RBC COUNT 4.27 X10E12/L Normal 3.80-5.[address] [facility] Comment on above: Performed By: #### C MP, CBCA, 08291-4, 11908-4, 42528-8 #### [facility] ([id number]) [address] [place] [address] 23041 WBC (Bld) [#/Vol] 7.6 10*3/uL Normal 4.0-11.0 [facility] Comment on above: Performed By: #### C MP, CBCA, 16675-7, 46775-8, 15289-8 #### [facility] ([id number]) [address] [place] [address] 19531 COMPREHENSIVE METABOLIC PANE Rigoberto 06-21-2023 Albumin [Mass/Vol] 4.0 g/dL Normal 3.2-5.3 [facility] Comment on above: Performed By: #### C MP, CBCA, 59701-3, 02522-7, 98262-2 #### [facility] ([id number]) [address] [place] [address] 25697 ALP [Catalytic activity/Vol] 94 U/L Normal 39-[address] [facility] Comment on above: Performed By: #### C TYRONE, CBCA, 14524-4, 72376-7, 13650-3 #### [facility] ([id number]) [address] [place] [address] 42040 ALT [Catalytic activity/Vol] 28 U/L Normal 0-[address] [facility] Comment on above: Performed By: #### C TYRONE, CBCA, 09640-7, 23152-0, 84616-8 #### [facility] ([id number]) [address] [place] [address] 65826 Anion gap [Moles/Vol] 8 mmol/L Normal 5-15 [facility] Comment on above: Performed By: #### C MP, CBCA, 93777-0, 70189-7, 68508-5 #### [facility] ([id number]) [address] [place] [address] 78199 AST [Catalytic activity/Vol] 24 U/L Normal 0-[address] [facility] Comment on above: Performed By: #### C MP, CBCA, 76282-6, 62931-2, 42628-6 #### [facility] ([id number]) [address] [place] [address] 05261 Bilirubin [Mass/Vol] 0.7 mg/dL Normal 0.3-1.2 [facility] Comment on above: Performed By: #### C MP, CBCA, 13908-8, 85886-2, 74500-8 #### [facility] ([id number]) [address] [place] [address] 76055 Calcium [Mass/Vol] 9.2 mg/dL Normal 8.5-10.5 [facility] Comment on above: Performed By: #### C TYRONE, CBCA, 11203-9, 40910-9, 95416-0 #### [facility] ([id number]) [address] [place] [address] 53127 Chloride [Moles/Vol] 104 mmol/L Normal 98-109 [facility] Comment on above: Performed By: #### C TYRONE, CBCA, 75733-1, 34925-7, 32195-6 #### [facility] ([id number]) [address] [place] [address] 98081 CO2 [Moles/Vol] 28 mmol/L Normal 22-[address] [facility] Comment on above: Performed By: #### C TYRONE, CBCA, 68928-3, 40762-9, 74042-2 #### [facility] ([id number]) [address] [place] [address] 19160 Creatinine [Mass/Vol] 1.23 mg/dL High 0.40-1.00 [facility] Comment on above: Result Comment: METH OD TRACEABLE TO IDMS STANDARD Performed By: #### C TYRONE, CBCA, 56620-6, 35401-4, 05005-8 #### [facility] ([id number]) [address] [place] [address] 81110 GFR/1.73 sq M.predicted among non-blacks MDRD (S/P/Bld) [Vol rate/Area] 44 mL/min/{1.73_m2} Low >[address] [facility] Comment on above: Result Comment: Reported eGFR is based on the CKD-EPI 2020 equation that does not use a race coefficient. Performed By: #### C SHY HANSEN, 60748-6, 59773-9, 02374-7 #### [facility] ([id number]) [address] [place] [address] 56736 Glucose [Mass/Vol] 159 mg/dL High 65-99 [facility] Comment on above: Performed By: #### C SHY HANSEN, 99568-1, 42870-4, 43151-4 #### [facility] ([id number]) [address] [place] [address] 21079 Potassium [Moles/Vol] 4.2 mmol/L Normal 3.5-5.0 [facility] Comment on above: Performed By: #### C SHY HANSEN, 18574-7, 95348-7, 54554-4 #### [facility] ([id number]) [address] [place] [address] 29188 Protein [Mass/Vol] 7.4 g/dL Normal 6.0-8.0 [facility] Comment on above: Performed By: #### C SHY HANSEN, 90047-3, 84631-3, 42558-6 #### [facility] ([id number]) [address] [place] [address] 26162 Sodium [Moles/Vol] 140 mmol/L Normal 134-146 [facility] Comment on above: Performed By: #### C TYRONE, LILIAA, 36201-8, 94000-6, 06777-5 #### [facility] ([id number]) [address] [place] [address] 77137 Urea nitrogen [Mass/Vol] 21 mg/dL Normal 5-[address] [facility] Comment on above: Performed By: #### C MP, CBCA, 40072-8, 21208-8, 75549-6 #### [facility] ([id number]) [address] [place] [address] 51255 Fibrin D-dimer DDU (PPP) [Ma ss/Vol]on 06-21-2023 D DIMER 268 ng/mL DDU High <[address] [facility] Comment on above: Result Comment: Results >=255ng/mL DDU: Results may be indicative of the presence of VTE. The use of the Wells score and further diagnostic tests should be considered. Elevated D-Dimer levels can also be associated with DIC, neoplasm, , trauma and liver disease. Elevated levels of rheumatoid factor may lead to an overestimation of the D-Dimer level. Performed By: #### C SHY HANSEN, 63374-0, 30291-7, 72414-9 #### [facility] ([id number]) [address] [place] [address] 73331 Natriuretic peptide B [Mass/ Vol]on 06-21-2023 Natriuretic peptide B (Bld) [Mass/Vol] 147 pg/mL High <100.[address] [facility] Comment on above: Performed By: #### 3 0934-4 #### [facility] ([id number]) [address] [place] [address] 24001 Procalcitonin IA [Mass/Vol]o n 06-21-2023 PROCALCITONIN 0.07 ng/mL High <0.[address] [facility] Comment on above: Result Comment: NOTE <0.50 ng/mL - Low risk of severe sepsis and/or septic shock. <2.00 ng/mL - Recommend retesting within 6-24 hours. >2.00 ng/mL - High risk of sepsis and/or septic shock. Performed By: #### C SHY HANSEN, 02978-9, 13408-6, 95136-0 #### [facility] ([id number]) [address] [place] [address] 67164 SARS/FLU A+B/RSV by NAAT/Mol ecularon 06-21-2023 SARS/FLU A+B/RSV by NAAT/Molecular FLU A PCR Negative (qualifier value) FLU B PCR Negative (qualifier value) RSV by PCR Negative (qualifier value) SARS CoV 2 Not detected (qualifier value) NOTE The Xpert Xpress SARS-CoV-2/Flu/RSV Plus test is a rapid, multiplexed real-time RT-PCR test intended for the simultaneous qualitative detection and differentiation of SARS-CoV-2, influenza A, influenza B and respiratory syncytial virus (RSV) viral RNA from individuals suspected of respiratory viral infection consistent with COVID-19 by their healthcare provider. This test has not been validated in asymptomatic patients. The Xpert Xpress SARS-CoV-2 test is intended for use by qualified and trained operators who are performing tests using either [employer] or [employer] systems and is limited to laboratories that meet the CLIA requirements to perform high and moderate complexity tests. The Xpert Xpress SARS-CoV-2/Flu/RSV Plus is only for use under the Food and Drug Administration's Emergency Use Authorization. Results are for the simultaneous detection and differentiation of SARS-CoV-2, influenza A, influenza B and RSV nucleic acids in clinical specimens. SARS-CoV-2, influenza A, influenza B and RSV RNA identified by this test are generally detectable in upper respiratory samples during the acute phase of infection. Positive results are indicative of the presence of the identified virus, but do not rule out bacterial infection or co-infection with other pathogens not detected by this test. Clinical correlation with patient history and other diagnostic information is necessary to determine patient infection status. The agent detected may not be the definite cause of disease. Negative results do not preclude SARS-CoV-2, influenza A, influenza B and RSV infection and should not be used as the sole basis for treatment or other patient management decisions. Negative results must be combined with clinical observations, patient history and epidemiological information. An Invalid result may occur with specimen-associated inhibition unable to be resolved with specimen repeat. Fact Sheet for Healthcare Providers: https://www.fda.gov/media/ 936516/download Fact Sheet for Patients: https://www.fda.gov/media/ 387321/download Normal [facility] Comment on above: Performed By: #### C OVFLR #### [facility] ([id number]) [address] [place] [address] TROPONIN Ion 06-21-2023 Troponin I.cardiac [Mass/Vol] 0.01 ng/mL Normal 0.00-0.[address] [facility] Comment on above: Performed By: #### C MP, CBCA, 57991-1, 91267-3, 06697-5 #### [facility] ([id number]) [address] [place] [address] 93327 XR CHEST 1 VWon 06-21-2023 XR CHEST 1 VW XR CHEST 1 VW Portable chest: HISTORY: Shortness of breath. Single view of the chest was obtained and compared to prior exam dated 03/01/2023. Cardiac silhouette is enlarged. Small to moderate right pleural effusion noted. Pulmonary vasculature appears congested. No pneumothorax appreciated. Central line tip is the region of the SVC or adjacent right atrium. IMPRESSION: Vascular congestion and right pleural effusion. Finalized by Gen Posada MD on 06/21/2023 5:[address] [facility] CBC AUTO DIFFon 03-28-2022 BASO # 0.0 103/ul Normal 0.0-0.1 [facility] Comment on above: Performed By: #### C BC #### [facility] [address] [place] [address] Dr. Keo Moran Basophils/100 WBC (Bld) 0.5 % Normal 0.2-2.0 [facility] Comment on above: Performed By: #### C BC #### [facility] [address] [place] [address] Dr. Keo Moran EO # 0.0 103/ul Normal 0.0-0.7 [facility] Comment on above: Performed By: #### C BC #### [facility] [address] [address] [address] Keo Moran Eosinophils/100 WBC (Bld) 0.0 % Critically low 0.9-7.0 [facility] Comment on above: Performed By: #### C BC #### [facility] [address] [address] [address] Keo Moran Erythrocyte distribution width (RBC) [Ratio] 14.7 % Normal 11.0-15.0 [facility] Comment on above: Performed By: #### C BC #### [facility] [address] [place] [address] Dr. Keo Moran Hematocrit (Bld) [Volume fraction] 36.7 % Normal 36.0-48.0 [facility] Comment on above: Performed By: #### C BC #### [facility] [address] [place] [address] Dr. Keo Moran Hemoglobin (Bld) [Mass/Vol] 11.7 g/dL Critically low 12.0-16.0 [facility] Comment on above: Performed By: #### C BC #### [facility] [address] [place] [address] Dr. Keo Moran IG # 0.02 10e3/ul Normal 0.00-0.03 [facility] Comment on above: Performed By: #### C BC #### [facility] [address] [place] [address] Dr. Keo Moran IG % 0.3 % Normal 0.0-0.5 [facility] Comment on above: Performed By: #### C BC #### [facility] [address] [place] [address] Dr. Keo Moran LYMPH # 0.5 103/ul Critically low 1.2-3.8 [facility] Comment on above: Performed By: #### C BC #### [facility] [address] [place] [address] Dr. Keo Moran Lymphocytes/100 WBC (Bld) 7.0 % Critically low 20.5-60.0 [facility] Comment on above: Performed By: #### C BC #### [facility] [address] [place] [address] Dr. Keo Moran MANUAL DIFF REQ NO Normal [facility] Comment on above: Performed By: #### C BC #### [facility] [address] [place] [address] Dr. Keo Moran MCH (RBC) [Entitic mass] 29.1 pg Normal 26.7-34.0 [facility] Comment on above: Performed By: #### C BC #### [facility] [address] [place] [address] Dr. Keo Moran MCHC (RBC) [Mass/Vol] 31.9 g/dL Normal 29.9-35.2 [facility] Comment on above: Performed By: #### C BC #### [facility] [address] [place] [address] Dr. Keo Moran MCV (RBC) [Entitic vol] 91.3 fL Normal 81.0-99.0 [facility] Comment on above: Performed By: #### C BC #### [facility] [address] [place] [address] Dr. Keo Moran MONO # 0.5 103/ul Normal 0.3-0.8 [facility] Comment on above: Performed By: #### C BC #### [facility] [address] [place] [address] Dr. Keo Moran Monocytes/100 WBC (Bld) 6.6 % Normal 1.7-12.0 [facility] Comment on above: Performed By: #### C BC #### [facility] [address] [place] [address] Dr. Keo Moran NEUT # 6.2 103/ul Normal 1.4-6.5 [facility] Comment on above: Performed By: #### C BC #### [facility] [address] [place] [address] Dr. Keo Moran Neutrophils/100 WBC (Bld) 85.6 % Critically high 43.0-75.0 [facility] Comment on above: Performed By: #### C BC #### [facility] [address] [place] [address] Dr. Keo Moran Platelet mean volume (Bld) [Entitic vol] 9.8 fL Normal 9.5-13.5 [facility] Comment on above: Performed By: #### C BC #### [facility] [address] [place] [address] Dr. Keo Moran PLT 143 103/ul Critically low 150-450 [facility] Comment on above: Performed By: #### C BC #### [facility] [address] [address] [address] Keo Moran RBC 4.02 106/ul Critically low 4.20-5.40 [facility] Comment on above: Performed By: #### C BC #### [facility] [address] [address] [address] Keo Moran WBC 7.3 103/ul Normal 4.0-11.0 [facility] Comment on above: Performed By: #### C BC #### [facility] [address] [address] [address] Keo Moran GLYCOHEMOGLOBIN A1Con 2021 ADA RECOMMENDATION SEE BELOW Normal [facility] Comment on above: Result Comment: ADA RECOMMENDED LIMIT 4.0 - 6.0 ADA THERAPEUTIC TARGET < 7.0 ACTION SUGGESTED > 7.0 Performed By: #### A 1C ####[facility] [address] [address]DrJulieta Moran Glucose [Mass/Vol] 283 mg/dL Normal [facility] Comment on above: Performed By: #### A 1C ####[facility] [address] [address]DrJulieta Moran HbA1c (Bld) [Mass fraction] 11.5 % Critically high 4.5-6.2 [facility] Comment on above: Performed By: #### A 1C ####[facility] [address] [address]Dr. Keo oMran PROF CHEM 8 (BAS METB)on Anion gap [Moles/Vol] 11.6 mmol/L Normal [facility] Comment on above: Performed By: #### B MP ####[facility] [address] [address]DrJulieta Moran Calcium [Mass/Vol] 9.3 mg/dL Normal 8.5-10.1 [facility] Comment on above: Performed By: #### B MP ####[facility] [address] [address]Dr. Keo Moran Chloride [Moles/Vol] 104 mmol/L Normal 98-107 [facility] Comment on above: Performed By: #### B MP ####[facility] [address] [address]Dr. Keo Moran CO2 [Moles/Vol] 30.0 mmol/L Normal 21.0-32.0 [facility] Comment on above: Performed By: #### B MP ####[facility] [address] [address]Dr. Keo Moran Creatinine [Mass/Vol] 1.74 mg/dL Critically high 0.55-1.02 [facility] Comment on above: Performed By: #### B MP ####[facility] [address] [address]Dr. Keo Moran EGFR-AF POLISH 34 mL/min/1.73m2 Critically low >=60 [facility] Comment on above: Performed By: #### B MP ####[facility] [address] [place], [place] [address]Dr. Keo Alfa EGFR-NON AF POLISH 28 mL/min/1.73m2 Critically low >=60 [facility] Comment on above: Performed By: #### B MP ####[facility] [address] [place], [place] [address]Dr. Keo Moran Glucose [Mass/Vol] 164 mg/dL Critically high 74-106 [facility] Comment on above: Performed By: #### B MP ####[facility] [address] [address]Dr. Hermilabettina Moran Potassium [Moles/Vol] 4.6 mmol/L Normal 3.5-5.1 [facility] Comment on above: Performed By: #### B MP ####[facility] [address] [address]Dr. Keo Moran Sodium [Moles/Vol] 141 mmol/L Normal 136-145 [facility] Comment on above: Performed By: #### B MP ####[facility] [address] [place], [place] [address]Bi. Keo Moran Urea nitrogen [Mass/Vol] 26.0 mg/dL Critically high 7.0-18.0 [facility] Comment on above: Performed By: #### B MP ####[facility] [address] [place], [place] [address]Gb. Keo Moran Urea nitrogen/Creatinine [Mass ratio] 14.9 mg/mg Normal [facility] Comment on above: Performed By: #### B MP ####[facility] [address] [place], [place] [address]Ez. Keo Moran XR TSPINE 3 VIEWSon 02-28-20 XR TSPINE 3 VIEWS EXAMINATION: XR TSPI NE 3 VIEWS HISTORY: Pain in thoracic spine COMPARISON: 02/07/2022 cervical spine FINDINGS: BONES: Normal alignment with no spondylolisthesis. Moderate diffuse degenerative spondylosis DISC SPACES: Normal. No significant disc height narrowing, subluxation, or endplate abnormality. PARASPINOUS: Negative. No paraspinous abnormality is seen. OTHER: Negative. IMPRESSION: Moderate degenerative spondylosis Electronically authenticated by: DENICE NAQVI Date: 2022-02-27 16:26 Normal [facility] VC COMP CONSULTATIONon 02-20 VC COMP CONSULTATION Patient: Shahram LY Exam Date: 02/20/2022 : 1940 Gender:F Ordering : SHAIKH Jose WEISS . Admission #: [id number] Family : Order #: [id number] CLICK HERE TO VIEW EXAM RADIOLOGY REPORT PROCEDURE: VC VEIN CENTER CONSULTATION VEIN CENTER - OFFICE VISIT INITIAL COMPARISON: None. PROGRESS NOTES: 81-year-old female who presents with a long history of lower extremity pain swelling and varicose veins, significantly worse in the past several months. The patient's right leg is worse than the left. The patient rates the pain as a 3 on a scale of 1-10. The patient describes aching burning and heaviness with bilateral diffuse numbness. The patient's symptoms are worse with prolonged standing or sitting and are partially relieved by rest and leg elevation. The patient takes prescription pain medication. The patient has not worn compression stockings. The patient is referred by her primary care physician, Dr. Ley. The patient denies any signs and symptoms to suggest arterial ischemia. The patient describes a family history significant for hypertension and heart disease in both parents. Thyroid disorder in her mother. Varicose veins in her father and brother. . The patient has grandchildren, great grandchildren as well as a single great great grandchild. The patient has a 40-50 pack year history of smoking, discontinuing in 2016. Occasional social alcohol use. No illicit drug use. No history of deep venous thrombus or pulmonary embolus. See separate history and physical for medication list. No prior treatment for varicose or spider veins. Nursing notes were reviewed. After history and physical exam I discussed at length the pathophysiology of venous hypertension and possible treatments, therapies and strategies available. We discussed at length the importance of elevating the lower extremities above the level of the heart, increased physical activity and compression stocking use. We discussed conservative therapy using bilateral thigh-high 20-30 mm compression stockings for 3 months before beginning any additional treatments. I also encouraged the patient to exercise by walking or using a stationary bike. The patient was counseled on weight reduction which she has tried 4 years. Ultrasound venous reflux study performed the same day was discussed at length with the patient. The report demonstrates moderate right great saphenous and left anterior accessory saphenous vein venous insufficiency with associated dilatation. Bilateral incompetent branch saphenous tributaries/varicose veins. PHYSICAL EXAM: The right leg demonstrates mild to moderate scattered varicose, reticular and spider veins. Hemosiderin staining below the knee. The forefoot including the toes are red and cold to the touch likely representing microvascular ischemia. No active ulceration The left leg demonstrates mild to moderate scattered varicose, reticular and spider veins. Hemosiderin staining below the knee. The forefoot including the toes red and cold to the touch likely representing microvascular ischemia. No active ulceration Both thighs, legs and feet were symmetrically warm to the touch. Good posterior tibial and dorsalis pedis pulses were present bilaterally. IMPRESSION: 1. Moderate right great saphenous and left anterior accessory saphenous vein venous insufficiency with associated dilatation 2. Bilateral incompetent lower extremity varicose veins 3. Bilateral below knee lower extremity subcutaneous edema 4. Significant peripheral arterial disease related to smoking history , hypertension and longstanding diabetes 5. Peripheral neuropathy likely related to diabetes 5. CEAP: C4a, Ep, As, Pr PLAN: 1. Begin use of 20-30 mm bilateral thigh-high compression stockings 2. Increased physical activity for symptomatic relief 3. Follow-up in 3 months Nurse notes, history and physical were reviewed and confirmed, see attached forms. The nurse was present throughout the physical exam and consultation Dictated by: Denice Naqvi MD on 02/20/2022 at 10:42 Approved by: Denice Naqvi MD on 02/20/2022 at 10:49 Normal [facility] VC VENOUS REFLUX JOSE L LMTon 0 02-20-2022 VC VENOUS REFLUX JOSE L LMT Patient: KRISTA LY Exam Date: 02/20/2022 : 1940 Gender:F Ordering : SHAIKH Jose WEISS . Admission #: [id number] Family : DR DENICE NAQVI M.D. Order #: [id number] CLICK HERE TO VIEW EXAM RADIOLOGY REPORT PROCEDURE: VEIN CENTER ULTRASOUND VENOUS REFLUX BILATERAL LIMTED COMPARISON: None. INDICATIONS: Phlebitis of superficial veins of lower extremity I80.0 TECHNIQUE: Duplex imaging of the lower extremity to assess the deep and superficial venous system for the presence of deep or superficial venous incompetence and to document the location and severity of disease. The study includes evaluation of the great saphenous vein (GSV), anterior accessory saphenous vein (AASV) and small saphenous vein (SSV). Patient scanned in reverse Trendelenburg and standing. FINDINGS: RIGHT LOWER EXTREMITY: Saphenofemoral Junction Reflux: Yes 8.9mm 2.0 sec GSV: Diam (mm) Reflux/ Time (sec) Proximal Thigh 7.9 Yes 1.8 Mid Thigh 6.9 Yes 1.7 Distal Thigh 6.0 Yes 0.7 Prox Calf 6.0 Yes 0.3 Mid Calf 3.7 No Saphenopopliteal Junction Reflux: 3.3mm No SSV: Proximal Calf 2.6 No Mid Calf 1.6 No AASV: Proximal Thigh 3.8 Yes 0.7 Mid Thigh 3.0 No Distal Thigh Thrombi: No acute or chronic thrombus Compressibility: Normal Flow: Normal Preforator: Prox/med calf 3.2mm with 0s reflux. Tech Note: Incompetent SFJ and GSV. Patent varicose vein mid/med calf 3.9mm with 0.3s reflux. Patent varicose vein mid/med thigh 3.4mm with 0s reflux. LEFT LOWER EXTREMITY: Saphenofemoral Junction Reflux: Yes 8.4 mm 1.1 sec GSV: Diam (mm) Reflux/Time (sec) Proximal Thigh 4.4 No Mid Thigh 4.0 No Distal Thigh N/A Prox Calf N/A Mid Calf N/A Saphenopopliteal Junction Relux: 2.2 mm N/A SSV: Proximal Calf 2.6 No Mid Calf 3.1 No AASV: Proximal Thigh 6.9 Yes 1.6 Mid Thigh 6.0 Yes 1.7 Distal Thigh 6.7 Yes 1.3 Thrombi: No acute or chronic thrombus visualized Compressibility: Normal Flow: Normal Water Sponger: Dist/med calf 2.2mm with 0s reflux. Tech Note: Incompetent SFJ and AASV. GSV is extrafascial and discontinuous after mid thigh. Patent varicose vein prox/med calf 4.7mm with 0.8s reflux. Patent varicose vein prox/med calf with 4.6mm with 0.8s reflux. CONCLUSION: 1. Moderate right great saphenous vein and left anterior accessory saphenous vein venous insufficiency with associated dilatation 2. Bilateral incompetent varicose veins Dictated by: Denice Naqvi MD on 02/20/2022 at 10:17 Approved by: Denice Naqvi MD on 02/20/2022 at 10:18 Normal [facility] XR CSPINE MIN 4 VIEWSon 01-26 XR CSPINE MIN 4 VIEWS EXAMINATION: XR CS PINE MIN 4 VIEWS HISTORY: Neck pain ; no known injury COMPARISON: No relevant comparison available. FINDINGS: BONES: Moderate left convex curvature of the cervical spine and. Mild grade 1 anterolisthesis of C3 on 4; no fracture. Moderate degenerative facet arthropathy C3-4 through C6-7. DISC SPACES: Moderate narrowing C5-6, C6-7. PARASPINOUS: Negative. No paraspinous abnormality is seen. OTHER: Negative. IMPRESSION: 1. Multilevel moderate degenerative changes. No appreciable acute abnormality. Electronically authenticated by: ALDO ALBRIGHT Date: 2022-02-07 11:32 Normal [facility] GLYCOHEMOGLOBIN A1Con 2021 ADA RECOMMENDATION SEE BELOW Normal [facility] Comment on above: Result Comment: ADA RECOMMENDED LIMIT 4.0 - 6.0 ADA THERAPEUTIC TARGET < 7.0 ACTION SUGGESTED > 7.0 Performed By: #### A 1C #### [facility] [address], [place] [address] Dr. Keo Moran Glucose [Mass/Vol] 286 mg/dL Normal [facility] Comment on above: Performed By: #### A 1C #### [facility] [address], [place] [address] Dr. Keo Moran HbA1c (Bld) [Mass fraction] 11.6 % Critically high 4.5-6.2 [facility] Comment on above: Performed By: #### A 1C #### [facility] [address], [place] [address] Dr. Keo Moran ECHOCARDIO M/2D COMPLETEon 0 10-07-2021 ECHOCARDIO M/2D COMPLETE Patient: KRISTA LY Exam Date: 10/07/2021 : 1940 Gender:F Ordering : SHAIKH Jose WEISS . Admission #: [id number] Family : Order #: [id number] CLICK HERE TO VIEW EXAM ECHOCARDIOGRAM REPORT PROCEDURE: CARDIO PULMONARY ECHOCARDIO M/2D COMP INDICATIONS: Bilateral lower extremity edema, dyspnea on exertion, hypertension, smoker COMPARISON: None. DESCRIPTION: COMPLETE ECHOCARDIOGRAM Real-time transthoracic echocardiography with 2D, M-mode, spectral and color flow Doppler performed. QUALITY: Technical quality was good. LEFT VENTRICLE: Normal chamber size. Wall thickness is upper normal limits. LV EF: Normal left ventricular ejection fraction, (>55%). DIASTOLIC: Diastolic function is indeterminate ATRIAL SEPTUM: Visually appears intact. LEFT ATRIUM: Moderate dilatation. RIGHT ATRIUM: Mild dilatation. RIGHT VENTRICLE: Poorly seen. Mild dilatation. Right ventricular systolic function appears reduced. TRICUSPID VALVE: Normal mobility and thickness. Trivial regurgitation. Doppler studies reveal mildly (35-45) elevated right sided pressures. RVSP 40 mmHg MITRAL VALVE: Normal mobility and thickness. No evidence of mitral valve stenosis. There is no mitral annular calcification. Trivial mitral regurgitation. AORTIC VALVE: Normal trileaflet appearance. No visible sclerosis. Normal leaflet mobility. No evidence of aortic valve stenosis. No aortic regurgitation. AORTIC ROOT: Normal diameter and appearance. PULMONIC VALVE: Normal thickness and mobility. No stenosis. No regurgitation. PERICARDIUM: No evidence of pericardial effusion. IVC: Collapses with inspirations. IVC is normal in size. CONCLUSION: Global left ventricular systolic function is normal; visually estimated ejection fraction is 55 to 60%. Diastolic function is indeterminate. Biatrial enlargement. The right ventricle is poorly seen however appears enlarged with reduced systolic function. Mildly elevated right-sided pressures. No significant valvular abnormalities. Adult Echocardiography Procedure Report Left Ventricle LVEDD (3.7 - 5.6 cm): 5.39 cm LVESD (2.2 - 4.0 cm): 4.21 cm LVIVS thickness (0.6 - 1.2 cm): 9.68 mm LVPW thickness (0.5 - 1.0 cm): 1.07 cm e': 10.20 cm/s E - e': 6.70 LVOT Area (cm2): 4.15 cm2 LVOT Diameter 2.30 cm Left Atrium Left Atrium Systolic Dimension: 4.30 cm Left Atrium Systolic Area(A4C): 26.40 cm2 Left Atrium Systolic Volume(A4C): 153964 mm3 Mitral Valve MV E to A Ratio: 1.10 Mitral Valve A-Wave Peak Velocity: 60.20 cm/s Mitral Valve E-Wave Peak Velocity: 68.60 cm/s Deceleration Time: 193 ms Right Ventricle Aorta AO Root Diam: 3.60 cm Aortic Valve AoV Area (Peak Jere): 2.23 cm2 Peak Velocity(Antegrade Flow): 147.00 cm/s Peak Gradient(Antegrade Flow): 9 mm[Hg] Tricuspid Valve Pulmonic Valve Right Atrium Dictated by: Paul Martinez M.D. on 10/07/2021 at 13:14 Approved by: Paul Martinez M.D. on 10/07/2021 at 13:20 Normal [facility] BNPon 09-20-2021 Natriuretic peptide B (Bld) [Mass/Vol] 461.0 pg/mL Normal <=1,800.0 [facility] Comment on above: Performed By: #### B DRIVE MAN, CMP #### [facility] [address] [place] [address] [address] [address] Keo Moran CBC W MANUAL DIFFon 09-21-19 22 ATYPICAL LYMPH # Normal [facility] Comment on above: Performed By: #### C BCSURJIT #### [facility] [address] [place] [address] Dr. Keo Moran ATYPICAL LYMPH % Normal [facility] Comment on above: Performed By: #### C BCMAN #### [facility] [address] [place] [address] Dr. Keo Moran BAND # Normal 0.0-0.3 [facility] Comment on above: Performed By: #### C BCMAN #### [facility] [address] [place] [address] Dr. Keo Moran BAND % Normal 0-5 [facility] Comment on above: Performed By: #### C BCSURJIT #### [facility] [address] [place] [address] Dr. Keo Moran BASOM # 0.00 103/ul Normal 0.00-0.10 [facility] Comment on above: Performed By: #### C BCSURJIT #### [facility] [address] [place] [address] Dr. Keo Moran BASOM % 0.0 % Critically low 0.2-2.0 [facility] Comment on above: Performed By: #### C CRUZ #### [facility] [address] [place] [address] Dr. Keo Moran BLAST # Normal [facility] Comment on above: Performed By: #### C CRUZ #### [facility] [address] [place] [address] Dr. Keo Moran BLAST % Normal [facility] Comment on above: Performed By: #### C BCSURJIT #### [facility] [address] [place] [address] Dr. Keo Moran CORRECTED WBC Normal 4.0-11.0 [facility] Comment on above: Performed By: #### C BCSURJIT #### [facility] [address] [place] [address] Dr. Keo Moran EOS # 0.95 103/ul Critically high 0.00-0.70 [facility] Comment on above: Performed By: #### C CRUZ #### [facility] [address] [place] [address] Dr. Keo Moran EOS% 10.0 % Critically high 0.9-7.0 [facility] Comment on above: Performed By: #### C BCSURJIT #### [facility] [address] [place] [address] Dr. Keo Moran HCT 37.0 % Normal 36.0-48.0 [facility] Comment on above: Performed By: #### C BCSURJIT #### [facility] [address] [place] [address] Dr. Keo Moran HGB 11.5 g/dl Critically low 12.0-16.0 [facility] Comment on above: Performed By: #### C BCSURJIT #### [facility] [address] [place] [address] Dr. Keo Moran LYMPHM # 1.71 103/ul Normal 1.20-3.80 [facility] Comment on above: Performed By: #### C CRUZ #### [facility] [address] [place] [address] Dr. Keo Moran LYMPHM% 18.0 % Critically low 20.5-60.0 [facility] Comment on above: Performed By: #### C BCSURJIT #### [facility] [address] [place] [address] Dr. Keo Moran MCH 29.2 pg Normal 26.7-34.0 [facility] Comment on above: Performed By: #### C CRUZ #### [facility] [address] [place] [address] Dr. Keo Moran MCHC 31.1 g/dl Normal 29.9-35.2 [facility] Comment on above: Performed By: #### C BCSURJIT #### [facility] [address] [place] [address] Dr. Keo Moran MCV 93.9 fL Normal 81.0-99.0 [facility] Comment on above: Performed By: #### C BCSURJIT #### [facility] [address] [place] [address] Dr. Keo Moran METAMYELOCYTE # Normal [facility] Comment on above: Performed By: #### C BCSURJIT #### [facility] [address] [place] [address] Dr. Keo Moran METAMYELOCYTE % Normal [facility] Comment on above: Performed By: #### C CRUZ #### [facility] [address] [place] [address] Dr. Keo Moran MONOM# 0.38 103/ul Normal 0.30-0.80 [facility] Comment on above: Performed By: #### C CRUZ #### [facility] [address] [place] [address] Dr. Keo Moran MONOM% 4.0 % Normal 1.7-12.0 [facility] Comment on above: Performed By: #### C CRUZ #### [facility] [address] [place] [address] Dr. Keo Moran MPV 9.9 fL Normal 9.5-13.5 [facility] Comment on above: Performed By: #### C CRUZ #### [facility] [address] [place] [address] Dr. Keo Moran MYELOCYTE # Normal [facility] Comment on above: Performed By: #### C CRUZ #### [facility] [address] [place] [address] Dr. Keo Moran MYELOCYTE % Normal [facility] Comment on above: Performed By: #### C CRUZ #### [facility] [address] [place] [address] Dr. Keo Moran NRBC Normal [facility] Comment on above: Performed By: #### C CRUZ #### [facility] [address] [place] [address] Dr. Keo Moran PLT 173 103/ul Normal 150-450 [facility] Comment on above: Performed By: #### C CRUZ #### [facility] [address] [place] [address] Dr. Keo Moran RBC 3.94 106/ul Critically low 4.20-5.40 [facility] Comment on above: Performed By: #### C CRUZ #### [facility] [address] [place] [address] Dr. Keo Moran RDW 15.7 % Critically high 11.0-15.0 [facility] Comment on above: Performed By: #### C CRUZ #### [facility] [address] [place] [address] [address] Keo Moran SEG # 6.46 103/ul Normal 1.40-6.50 [facility] Comment on above: Performed By: #### C CRUZ #### [facility] [address] [place] [address] [address] Keo Moran SEG % 68.0 % Normal 43.0-75.0 [facility] Comment on above: Performed By: #### C CRUZ #### [facility] [address] [place] [address] [address] Keo Moran WBC 9.5 103/ul Normal 4.0-11.0 [facility] Comment on above: Performed By: #### C CRUZ #### [facility] [address] [place] [address] [address] Keo Moran PROF 14(COMP METB)on 022 Albumin [Mass/Vol] 3.2 g/dL Critically low 3.4-5.0 [facility] Comment on above: Performed By: #### B DRIVE MAN, CMP ####[facility] [address] [place] [address]DrJulieta Moran Albumin/Globulin [Mass ratio] 0.9 {ratio} Normal [facility] Comment on above: Performed By: #### B DRIVE MAN, CMP ####[facility] [address] [place] [address]DrJulieta Moran ALP [Catalytic activity/Vol] 116 U/L Normal 46-116 [facility] Comment on above: Performed By: #### B DRIVE MAN, CMP ####[facility] [address] [place] [id number] Moran ALT [Catalytic activity/Vol] 23 U/L Normal 14-59 [facility] Comment on above: Performed By: #### B DRIVE MAN, CMP ####[facility] [address] [place] [address]DrJulieta Moran Anion gap [Moles/Vol] 14.6 mmol/L Normal [facility] Comment on above: Performed By: #### B DRIVE MAN, CMP ####[facility] [address] [place], [place] [address]Dr. Keo Moran AST [Catalytic activity/Vol] 11 U/L Critically low 15-37 [facility] Comment on above: Performed By: #### B DRIVE MAN, CMP ####[facility] [address] [place], [place] [address]Dr. Keo Moran Bilirubin [Mass/Vol] 0.6 mg/dL Normal 0.2-1.0 [facility] Comment on above: Performed By: #### B DRIVE MAN, CMP ####[facility] [address] [place], [place] [address]Dr. Hermilabettina Moran Calcium [Mass/Vol] 8.5 mg/dL Normal 8.5-10.1 [facility] Comment on above: Performed By: #### B DRIVE MAN, CMP ####[facility] [address] [place], [place] [address]Dr. Keo Moran Chloride [Moles/Vol] 102 mmol/L Normal 98-107 [facility] Comment on above: Performed By: #### B DRIVE MAN, CMP ####[facility] [address] [place], [place] [address]Dr. Hermilabettina Moran CO2 [Moles/Vol] 24.7 mmol/L Normal 21.0-32.0 [facility] Comment on above: Performed By: #### B DRIVE MAN, CMP ####[facility] [address] [place], [place] [address]Dr. Keo Moran Creatinine [Mass/Vol] 1.10 mg/dL Critically high 0.55-1.02 [facility] Comment on above: Performed By: #### B DRIVE MAN, CMP ####[facility] [address] [place], [place] [address]Dr. Keo Moran EGFR-AF POLISH Normal >=60 [facility] Comment on above: Performed By: #### B DRIVE MAN, CMP ####[facility] [address] [place], [place] [address]Dr. Keo Moran EGFR-NON AF POLISH Normal >=60 [facility] Comment on above: Performed By: #### B DRIVE MAN, CMP ####[facility] [address] [place] [address]Dr. Keo Moran Globulin (S) [Mass/Vol] 3.6 g/dL Normal [facility] Comment on above: Performed By: #### B DRIVE MAN, CMP ####[facility] [address] [place] [address]Dr. Keo Moran Glucose [Mass/Vol] 346 mg/dL Critically high 74-106 [facility] Comment on above: Performed By: #### B DRIVE MAN, CMP ####[facility] [address] [place], [place] [address]Dr. Keo Moran Potassium [Moles/Vol] 4.3 mmol/L Normal 3.5-5.1 [facility] Comment on above: Performed By: #### B DRIVE MAN, CMP ####[facility] [address] [place], [place] [address]Dr. Keo Moran Protein [Mass/Vol] 6.8 g/dL Normal 6.1-8.2 [facility] Comment on above: Performed By: #### B DRIVE MAN, CMP ####[facility] [address] [place], [place] [address]Dr. Keo Moran Sodium [Moles/Vol] 137 mmol/L Normal 136-145 [facility] Comment on above: Performed By: #### B DRIVE MAN, CMP ####[facility] [address] [place] [address]Dr. Keo Moran Urea nitrogen [Mass/Vol] 19.0 mg/dL Critically high 7.0-18.0 [facility] Comment on above: Performed By: #### B DRIVE MAN, CMP ####[facility] [address] [place], [place] [address]Dr. Keo Moran Urea nitrogen/Creatinine [Mass ratio] 17.3 mg/mg Normal [facility] Comment on above: Performed By: #### B DRIVE MAN, CMP ####[facility] [address] [place], [place] [address]JdDr. Keo Moran URINE T PROTEIN CREAT RATIOo n 09-20-2021 Protein (U) [Mass/Vol] 29.7 mg/dL Critically high <=12.0 [facility] Comment on above: Performed By: #### U RTPCR #### [facility] [address] [place], [place] [address] Dr. Keo Moran UR PROT CREAT RAT 0.42 Normal [facility] Comment on above: Performed By: #### U RTPCR #### [facility] [address] [place], [place] [address] Dr. Keo Moran URINE CREAT 70.38 mg/dL Normal 20.00-300. 00 [facility] Comment on above: Performed By: #### U RTPCR #### [facility] [address] [place], [place] [address] Dr. Keo Moran XR CHEST 2 Von 09-20-2021 XR CHEST 2 V EXAMINATION: XR CHES T 2 V HISTORY: Localized edema COMPARISON: 05/30/2019 TECHNIQUE: PA and lateral FINDINGS: LUNGS: No significant pulmonary parenchymal abnormalities. VASCULATURE: No increased pulmonary vasculature. PLEURA: No pneumothorax, effusion, or pleural thickening. CARDIAC: No cardiomegaly or cardiac silhouette abnormality. MEDIASTINUM: No visible mass or adenopathy. BONES: Moderate degenerative disc disease and spondylosis without visible acute abnormalities. OTHER: Right anterior chest wall surgical drain IMPRESSION: No acute disease. Electronically authenticated by: DENICE NAQVI Date: 2021-09-20 15:22 Normal [facility] XR MODIFIED BARIUM SWALLOWon 08-22-2021 XR MODIFIED BARIUM SWALLOW EXAMINATION: XR MODIFIED BARIUM SWALLOW HISTORY: Oropharyngeal dysphagia COMPARISON: No relevant comparison available. TECHNIQUE: A swallowing evaluation was performed with fluoroscopy in the usual manner. Standard level fluoroscopic mode of operation utilized. FINDINGS: ORAL PHASE: Normal deglutition. PHARYNGEAL PHASE: Normal swallowing. ASPIRATION: None. STRUCTURE: Normal. No visible obstruction, stricture, or dilatation. OTHER: Negative. IMPRESSION: Normal modified barium swallow Electronically authenticated by: DENICE NAQVI Date: 2021-08-22 12:00 [address] [facility] CT CHEST W CONon 05-30-2021 CT CHEST W CON EXAMINATION: CT ABD/ PELV W CON, CT CHEST W CON, 05/27/2021 HISTORY: A diagnosed right breast cancer. Treatment workup. Hypertension. History of bilateral breast cancer with prior left lumpectomy. Prior cholecystectomy, hysterectomy, partial right colectomy and hernia repair. COMPARISON: CTA chest, 05/30/2019. TECHNIQUE: Oral and IV contrast enhanced axial CT imaging of the chest, abdomen and pelvis was performed using 100 mL of Omnipaque 300 intravenous contrast. Sagittal and coronal reconstructions are provided. Dose reduction techniques were achieved by using automated exposure control and/or adjustment of mA and/or kV according to patient size and/or use of iterative reconstruction technique. FINDINGS: CT CHEST: A possible mass in the lateral right breast parenchyma is incompletely evaluated at the lateral margin of the cnotn-ug-elxf. Nonspecific left breast anterior skin thickening is noted. No axillary, mediastinal, hilar or retrocrural lymphadenopathy is seen. Cardiac size is normal. There is no pericardial effusion. There are moderate aortic and arch vessel calcifications without dissection or aneurysm. There is no acute pulmonary embolism. There is a dense 2 mm nodule in the posterior right lower lobe compatible with a benign granuloma image 71 of series 6. No suspicious pulmonary lesion is seen. Linear atelectasis or fibrotic scarring is noted in the lingula and right lung base. The lungs appear otherwise clear. The bony thorax appears intact. No lytic or blastic bony lesion is seen. Multilevel thoracic spondylosis is noted. CT ABDOMEN: No mesenteric or retroperitoneal lymphadenopathy is seen. No suspicious solid organ mass is identified. The liver, pancreas, spleen, and adrenal glands appear within normal limits. There are bilateral renal cortical cysts, right larger and more numerous than left, measuring up to 5.5 cm in the anterior upper pole of the right kidney. The kidneys are otherwise unremarkable. There are moderate aortic calcifications without aneurysm or dissection. The stomach appears normal. There is a 2.5 cm periampullary duodenal diverticulum. The small bowel is otherwise unremarkable. Prior cholecystectomy noted. CT PELVIS: No iliac or inguinal lymphadenopathy, or focal pelvic mass is seen. There is surgical change for partial right colectomy and hysterectomy. The adnexa, urinary bladder and pelvic small bowel loops are unremarkable. There is a moderate volume of stool throughout the colon. No inflammatory fat stranding, free fluid, loculated fluid or free air is seen in the abdomen or pelvis. No acute osseous abnormality or suspicious bony lesion is seen. Mild degenerative grade 1 anterolisthesis of L4 on L5 is noted. IMPRESSION: 1. The patient's known right breast mass may be partially imaged at the lateral margin of the fnmry-qz-skkl. The right breast is incompletely evaluated. If indicated, diagnostic mammography could further evaluate. 2. Nonspecific skin thickening in the anterior left breast may reflect postsurgical and/or treatment change following lumpectomy. Clinical correlation recommended to exclude mild cellulitis. No underlying inflammatory change or loculated fluid. 3. No convincing metastatic disease or acute diagnostic abnormality in the chest, abdomen or pelvis. 4. Duodenal diverticulum. 5. Prior cholecystectomy, partial right colectomy and hysterectomy. Electronically authenticated by: GEORGIANA DE LA CRUZ Date: 2021-05-30 04:29 Normal [facility] PROF CHEM 8 (BAS METB)on Anion gap [Moles/Vol] 12.1 mmol/L Normal [facility] Comment on above: Performed By: #### B MP ####[facility] [address] [place] [address]Dr. Keo Moran Calcium [Mass/Vol] 9.3 mg/dL Normal 8.4-10.2 [facility] Comment on above: Performed By: #### B MP ####[facility] [address] [place] [address]Dr. Keo Moran Chloride [Moles/Vol] 105 mmol/L Normal 98-107 [facility] Comment on above: Performed By: #### B MP ####[facility] [address] [place] [address]Dr. Keo Moran CO2 [Moles/Vol] 31.2 mmol/L Critically high 22.0-30.0 [facility] Comment on above: Performed By: #### B MP ####[facility] [address] [place] [address]Dr. Keo Moran Creatinine [Mass/Vol] 0.91 mg/dL Normal 0.52-1.04 [facility] Comment on above: Performed By: #### B MP ####[facility] [address] [place] [address]Dr. Keo Moran EGFR-AF POLISH >60 Normal >=60 [facility] Comment on above: Performed By: #### B MP ####[facility] [address] [place] [id number]. Keo Alfa EGFR-NON AF POLISH 60 mL/min/1.73m2 Normal >=60 [facility] Comment on above: Performed By: #### B MP ####[facility] [address] [place] [id number]. Hemrilabettina Alfa Glucose [Mass/Vol] 103 mg/dL Normal 74-106 [facility] Comment on above: Performed By: #### B MP ####[facility] [address] [place] [id number]. Keo Moran Potassium [Moles/Vol] 4.3 mmol/L Normal 3.4-5.0 [facility] Comment on above: Performed By: #### B MP ####[facility] [address] [place] [id number]. Keo Moran Sodium [Moles/Vol] 144 mmol/L Normal 137-145 [facility] Comment on above: Performed By: #### B MP ####[facility] [address] [place] [id number]. Keo Alfa Urea nitrogen [Mass/Vol] 18.0 mg/dL Critically high 7.0-17.0 [facility] Comment on above: Performed By: #### B MP ####[facility] [address] [place] [id number]. Keo Moran Urea nitrogen/Creatinine [Mass ratio] 19.8 mg/mg Normal [facility] Comment on above: Performed By: #### B MP ####[facility] [address] [place] [id number]. Keo Moran MAMMO POST BIOPSY RIGHTon MAMMO POST BIOPSY RIGHT Patient: KRISTA LY Exam Date: 05/04/2021 : 1940 Gender:F Ordering : SHAIKH Jose WEISS . Admission #: [id number] Family : Order #: [id number] CLICK HERE TO VIEW EXAM This report includes an Addendum and supersedes previous reports for this exam. This report includes an Addendum and supersedes previous reports for this exam. RADIOLOGY REPORT PROCEDURE: MAMMOGRAM POST BIOPSY IMAGES COMPARISON: MG MAMM JOSE L SCRN W CAD DIG, 08/08/2019. MG MAMM DIAGNOSTIC 3D JOSE L CAD, 04/28/2021. INDICATIONS: Lesion of breast BREAST COMPOSITION: Heterogeneously dense,which may obscure small masses. FINDINGS: BIOPSY MARKER: A metallic marker has been placed in the targeted location within the upper inner quadrant of the right breast. BREAST FINDINGS: Expected post biopsy findings. RECOMMENDATIONS: Dictated by: Aldo Albright M.D. on 05/04/2021 at 14:15 Approved by: Aldo Albright M.D. on 05/04/2021 at 14:17 ADDENDUM: FINDINGS: DIAGNOSTIC CATEGORY 3--PROBABLY BENIGN FINDING. THE FOLLOWING FINDING(S) HAS A HIGH PROBABILITY OF A BENIGN ETIOLOGY: RECOMMENDATIONS: SHORT TERM FOLLOW-UP DIAGNOSTIC MAMMOGRAM RIGHT BREAST IN 6 MONTHS. Dictated by: Aldo Albright M.D. on 05/13/2021 at 11:29 Approved by: Aldo Albright M.D. on 05/13/2021 at 11:29 ADDENDUM: FINDINGS: DIAGNOSTIC CATEGORY 6--KNOWN BIOPSY PROVEN MALIGNANCY: RIGHT BREAST RECOMMENDATIONS: SURGICAL CONSULTATION. Dictated by: Aldo Albright M.D. on 05/26/2021 at 15:42 Approved by: Aldo Albright M.D. on 05/26/2021 at 15:43 Normal [facility] US VAC ASST BX BRST RT W CLI Nando 05-04-2021 US VAC ASST BX BRST RT W CLIP Patient: KRISTA LY Exam Date: 05/04/2021 : 1940 Gender:F Ordering : SHAIKH Jose WEISS . Admission #: [id number] Family : Order #: [id number] CLICK HERE TO VIEW EXAM This report includes an Addendum and supersedes previous reports for this exam. RADIOLOGY REPORT PROCEDURE: ULTRASOUND BIOPSY VACCUUM ASSISTED RIGHT WITH CLIP COMPARISON: US BREAST RIGHT LIMITED, 04/28/2021. INDICATIONS: Lesion of breast DESCRIPTION: After obtaining informed consent, a vacuum assisted ultrasound-guided biopsy was performed in the usual sterile manner. The location of the biopsy was then marked as indicated below. FINDINGS: RECOMMENDATIONS: SPECIMEN #, LOCATION: 5 core samples right breast 9:00 a.m. Hypoechoic geographic shaped 13 x 10 x 8 mm mass and immediately adjacent 8 x 6 x 5 mm mass versus extension. BIOPSY NEEDLE: 13 gauge Elite (r) vacuum core biopsy needle. MARKERS(S) PLACED: A single metallic marker was placed in the appropriate targeted location. MEDICATION: Buffered 1% lidocaine with epinephrine administered locally. COMPLICATIONS: None. PATHOLOGY LAB: Pending. CONCLUSION: 1. Uneventful ultrasound-guided breast biopsy. 2. Pathology results are pending. An addendum to this report will be provided after pathology results are available. Dictated by: Aldo Albright M.D. on 05/05/2021 at 15:03 Approved by: Aldo Albright M.D. on 05/05/2021 at 15:05 ADDENDUM: Final pathologic diagnosis: Invasive lobular carcinoma, grade 1. Lobular carcinoma in situ. This report was transmitted to the referring physician's office on May 10, 2021, and the office called to confirm receipt. Dictated by: Aldo Albright M.D. on 05/13/2021 at 11:27 Approved by: Aldo Albright M.D. on 05/13/2021 at 11:28 Normal [facility] MG MAMM DIAGNOSTIC 3D JOSE L CA Don 04-28-2021 MG MAMM DIAGNOSTIC 3D JOSE L CAD Patient: KRISTA LY Exam Date: 04/28/2021 : 1940 Gender:F Ordering : SHAIKH Jose WEISS . Admission #: [id number] Family : Order #: [id number] CLICK HERE TO VIEW EXAM RADIOLOGY REPORT PROCEDURE: MAMMOGRAM DIAGNOSTIC 3D BILATERAL CAD, 04/28/2021, 10:59 ULTRASOUND BREAST RIGHT LIMITED, 04/28/2021, 11:37 COMPARISON: MG MAMM JOSE L SCRN W CAD DIG, 08/08/2019. INDICATIONS: Right palpable lump Calculator Name NCI Breast Cancer Risk Assessment Tool 5 Year Breast Cancer Risk n/a% Lifetime Breast Cancer Risk n/a% Personal Breast Cancer Yes, Left, lumpectomy 2000 age 53 Personal Ovarian Cancer No Treatments None Family Cancers None LOCATION: [facility] BREAST COMPOSITION: Heterogeneously dense,which may obscure small masses. FINDINGS: DIAGNOSTIC CATEGORY 4--SUSPICIOUS FOR MALIGNANCY. FINDING DOES NOT EXHIBIT CLASSIC FINDINGS OF BREAST CANCER: RIGHT BREAST: 1 cm asymmetry within anterior lateral breast in the subareolar region deep to the skin surface marker localizing the patient's palpable lump. Scattered benign-appearing calcifications within breast. Ultrasound evaluation demonstrates a geographic shaped 8 x 6 x 5 mm area with spiculated extensions extending further within the anterior right breast, 1.3 cm from the nipple. Ultrasound-guided biopsy is recommended. LEFT BREAST: No significant suspicious finding. No significant change has occurred. RECOMMENDATIONS: ULTRASOUND-GUIDED CORE BIOPSY: RIGHT BREAST PLEASE NOTE: A NORMAL MAMMOGRAM DOES NOT EXCLUDE THE POSSIBILITY OF BREAST CANCER. A CLINICALLY SUSPICIOUS PALPABLE LUMP SHOULD BE BIOPSIED. Dictated by: Aldo Albright M.D. on 04/28/2021 at 13:26 Approved by: Aldo Albright M.D. on 04/28/2021 at 13:31 Normal [facility] US BREAST RIGHT LIMITEDon US BREAST RIGHT LIMITED Patient: KRISTA LY Exam Date: 04/28/2021 : 1940 Gender:F Ordering : SHAIKH Jose WEISS . Admission #: [id number] Family : Order #: [id number] CLICK HERE TO VIEW EXAM RADIOLOGY REPORT PROCEDURE: MAMMOGRAM DIAGNOSTIC 3D BILATERAL CAD, 04/28/2021, 10:59 ULTRASOUND BREAST RIGHT LIMITED, 04/28/2021, 11:37 COMPARISON: MG MAMM JOSE L SCRN W CAD DIG, 08/08/2019. INDICATIONS: Right palpable lump Calculator Name NCI Breast Cancer Risk Assessment Tool 5 Year Breast Cancer Risk n/a% Lifetime Breast Cancer Risk n/a% Personal Breast Cancer Yes, Left, lumpectomy 2001 age 53 Personal Ovarian Cancer No Treatments None Family Cancers None LOCATION: [facility] BREAST COMPOSITION: Heterogeneously dense,which may obscure small masses. FINDINGS: DIAGNOSTIC CATEGORY 4--SUSPICIOUS FOR MALIGNANCY. FINDING DOES NOT EXHIBIT CLASSIC FINDINGS OF BREAST CANCER: RIGHT BREAST: 1 cm asymmetry within anterior lateral breast in the subareolar region deep to the skin surface marker localizing the patient's palpable lump. Scattered benign-appearing calcifications within breast. Ultrasound evaluation demonstrates a geographic shaped 8 x 6 x 5 mm area with spiculated extensions extending further within the anterior right breast, 1.3 cm from the nipple. Ultrasound-guided biopsy is recommended. LEFT BREAST: No significant suspicious finding. No significant change has occurred. RECOMMENDATIONS: ULTRASOUND-GUIDED CORE BIOPSY: RIGHT BREAST PLEASE NOTE: A NORMAL MAMMOGRAM DOES NOT EXCLUDE THE POSSIBILITY OF BREAST CANCER. A CLINICALLY SUSPICIOUS PALPABLE LUMP SHOULD BE BIOPSIED. Dictated by: Aldo Albright M.D. on 04/28/2021 at 13:26 Approved by: Aldo Albright M.D. on 04/28/2021 at 13:31 Normal [facility] Cardiovascular Lab Reporton 07-12-2019 Cardiovascular Lab Report [facility] MR #: [id number] Department of Physician: Char Law M.D. Division of Service Date: 07/11/2019 Cardiology Birthdate: 1940 Adult Cardiovascular Room #: [place] [address] Cardiovascular Laboratory Report FINAL IMPRESSIONS: 1. Moderate 2 vessel coronary artery disease. 2. Normal global left ventricular systolic function by noninvasive imaging. 3. Normal right-sided heart pressures and wedge pressures. 4. Normal cardiac output/cardiac index. 5. Mild systemic hypertension. RECOMMENDATIONS: 1. Consider alternate etiologies for the patient's symptomatology, namely pulmonary, gastrointestinal, and/or musculoskeletal. 2. Aggressive cardiovascular risk factor modification. 3. Optimization of medical management; aspirin, high-intensity statin therapy, a beta terry, and an angiotensin-converting enzyme inhibitor are indicated. 4. Follow up with Dr. Martinez in the [place] office in the next 1 to 2 months. 5. Follow up with her family physician as scheduled. PROCEDURES: Ultrasound-guided access to the right internal jugular vein, right heart catheterization, bilateral selective coronary angiography via a left radial approach. METHODS: After risks, benefits, and alternatives were explained, written informed consent was obtained. The patient was prepped and draped in usual sterile fashion over the right neck and left wrist. Using 1% lidocaine solution, local infiltration anesthesia was achieved. Using a modified Seldinger technique, access to the right internal jugular vein was obtained. A 6-Bulgarian glide sheath was inserted without difficulty. Pressures were measured in the right atrium, right ventricle, pulmonary artery, and pulmonary capillary wedge positions. Oxygen saturations were obtained and cardiac output/cardiac index was calculated using the Kyra principle. The Song catheter was removed. The jugular sheath was removed with application of manual pressure to achieve optimal hemostasis. Local infiltration anesthesia was achieved over the left wrist. A 6-Bulgarian glide sheath was inserted without difficulty. Bilateral selective coronary angiography was performed using 3DRC and JL4 catheters. After reviewing the images, it was elected to conclude the procedure. All catheters were removed. The radial sheath was removed with application of a TR band per protocol to achieve optimal hemostasis. Overall, the patient tolerated the procedure well. There were no overt complications. She was to be transferred to the holding area in stable condition. FINDINGS: Hemodynamics. AO 132/63 (18). RA 7. RV 35/3, 8. PA 35/8 (24). PCWP 10. TPG 14. Cardiac output 5.13/cardiac index 2.55. AO sat 94%/PA sat 64%. LEFT VENTRICULOGRAPHY: This was not performed. Ejection fraction is normal by noninvasive imaging. CORONARY ARTERIES: Left main coronary artery: This arises from the left coronary cusp. It bifurcates into the left anterior descending and left circumflex coronary arteries and shows no significant stenosis. Left anterior descending coronary artery: This shows a 30% ostial stenosis, mild ectasia thereafter, and a 40% mid vessel stenosis. The remainder of the vessel shows diffuse caliber reduction. Left circumflex coronary artery: This shows mild luminal irregularities. The high originating first obtuse marginal shows a 50% proximal stenosis. The remainder of the vessel shows caliber reduction. Right coronary artery: This is a dominant vessel giving rise to the posterior descending and posterolateral branches. It shows a 40% ostial narrowing and a 20% to 30% proximal stenosis. The posterior descending artery has a 30-40% mid vessel stenosis. INDICATIONS: Chest pressure, shortness of breath and abnormal stress test. Electronically Signed by: Paul Martinez M.D. 07/14/2019 12:40 P Paul Martinez M.D. Date Dict: 07/11/2019/03:09 Mars Martinez M.D. Date Trans: 07/12/2019 09:16 A/jeremie [id number] cc: Rebecca Hirsch M.D. [address] [place] [id number] Normal [facility] BASIC METABOLIC PANELon 06-28 Calcium [Mass/Vol] 10.1 mg/dL Normal 8.6-10.3 [facility] Comment on above: Performed By: #### 0 [id number] #### [facility] [address] [place] [address], [facility] Chloride [Moles/Vol] 103 mmol/L Normal 98-107 [facility] Comment on above: Performed By: #### 0 [id number] #### [facility] [address] [place] [address], [place] CO2 [Moles/Vol] 26 mmol/L Normal 21-31 [facility] Comment on above: Performed By: #### 0 [id number] #### [facility] [address] [place] [address], [place] Creatinine [Mass/Vol] 1.06 mg/dL Normal 0.60-1.20 [facility] Comment on above: Performed By: #### 0 [id number] #### [facility] [address] [place] [address], [place] GFR/1.73 sq M predicted among blacks MDRD (S/P/Bld) [Vol rate/Area] mL/min/{1.73_m2} Normal >60 [facility] Comment on above: Result Comment: Calc ulation may not be valid for patients over 70 years Performed By: #### 0 [id number] #### [facility] [address] [place] [address], [place] GFR/1.73 sq M predicted among non-blacks MDRD (S/P/Bld) [Vol rate/Area] 50 ml/min/1.73sq m Abnormal >60 [facility] Comment on above: Result Comment: Calc ulation may not be valid for patients over 70 years Performed By: #### 0 [id number] #### [facility] [address] [place] [address], [place] Glucose [Mass/Vol] 195 mg/dL High 70-100 [facility] Comment on above: Performed By: #### 0 [id number] #### [facility] [place] [address] [place] [address], [place] Potassium [Moles/Vol] 4.9 mmol/L Normal 3.5-5.1 [facility] Comment on above: Performed By: #### 0 [id number] #### [facility] [address] [place] [address], [place] Sodium [Moles/Vol] 136 mmol/L Normal 136-145 [facility] Comment on above: Performed By: #### 0 [id number] #### [facility] [address] [place] [address], [place] Urea nitrogen [Mass/Vol] 19 mg/dL Normal 7-25 [facility] Comment on above: Performed By: #### 0 [id number] #### [facility] [address] [place] [address], [facility] Vital Signs Date Time Vital Sign Value Performing Clinician Facility 12-26-2023 13:17040 Diastolic blood pressure 64 mm[Hg] DO Susanne Tupa Work Phone: [facility] 12-26-2023 13:17040 Heart rate 70 /min DO Susanne Tupa Work Phone: [facility] 12-26-2023 13:17040 Inhaled oxygen flow rate 4 L/min DO Ssuanne Bernardpa Work Phone: [facility] 12-26-2023 13:17-0400 Respiratory rate 18 /min DO Susanne Cannon Work Phone: [facility] 12-26-2023 13:17-0400 SaO2% (BldA) [Mass fraction] 92 % DO Susanne Cannon Work Phone: [facility] 12-26-2023 13:17-0400 Systolic blood pressure 130 mm[Hg] DO Susanne Cannon Work Phone: [facility] 12-26-2023 09:31-0400 Body height 157.48 cm DO Susanne Cannon Work Phone: [facility] 12-26-2023 09:31040 Body temperature 98.3 [degF] DO Susanne Cannon Work Phone: [facility] 12-26-2023 09:31-0400 Body weight 94.1 kg DO Susanne Cannon Work Phone: [facility] 08-01-2023 12:02-0500 Body height 157.5 cm Blanca Rosales MD [facility] 08-01-2023 12:02-0500 Body mass index (BMI) [Ratio] 42.06 kg/m2 Blanca Rosales MD Work Phone[facility] 08-01-2023 12:02-0500 Body weight 104.33 kg Blanca Rosales MD [facility] 08-01-2023 12:02-0500 Diastolic blood pressure 67 mm[Hg] Blanca Rosales MD Work Phone: [facility] 08-01-2023 12:02-0500 Heart rate 92 /min Blanca Rosales MD Work Phone[facility] 08-01-2023 12:02-0500 Systolic blood pressure 139 mm[Hg] Blanca Rosales MD Work Phone[facility] 07-06-2023 13:55-0500 Body height 157.5 cm Kiloslime Hines PA-C Work Phone: [facility] 07-06-2023 13:55-0500 Body mass index (BMI) [Ratio] 37.13 kg/m2 Kilo Hines PA-C Work Phone: [facility] 07-06-2023 13:55-0500 Body weight 92.08 kg Kilo Hines PA-C Work Phone: [facility] 07-06-2023 13:55-0500 Diastolic blood pressure 74 mm[Hg] Kilo Hines PA-C Work Phone: [facility] 07-06-2023 13:55-0500 Heart rate 68 /min Kilo Hines PA-C Work Phone: [facility] 07-06-2023 13:55-0500 Systolic blood pressure 128 mm[Hg] Kilo Hines POLI-C Work Phone: [facility] 07-04-2023 09:26-0500 Body height 157.5 cm Shaikh Isela ACOSTA Work Phone: [facility] 07-04-2023 09:26-0500 Body mass index (BMI) [Ratio] 37.49 kg/m2 Shaikh Isela ACOSTA Work Phone: [facility] 07-04-2023 09:26-0500 Body temperature 97.2 [degF] Shaikh Isela ACSOTA Work Phone: [facility] 07-04-2023 09:26-0500 Body weight 92.99 kg Shaikh Isela ACOSTA Work Phone: [facility] 07-04-2023 09:26-0500 Diastolic blood pressure 60 mm[Hg] Shaikh Iseal ACOSTA Work Phone: [facility] 07-04-2023 09:26-0500 Heart rate 71 /min Shaikh Isela ACOSTA Work Phone: [facility] 07-04-2023 09:26-0500 SaO2% (BldA) [Mass fraction] 93 % Shaikh Isela ACOSTA Work Phone: [facility] 07-04-2023 09:26-0500 Systolic blood pressure 100 mm[Hg] Shaikh Isela ACOSTA Work Phone: [facility] Healthcare Encounters Encounter Date Encounter Type Care Provider Facility Start: 01-14-2024 End: 01-14-2024 ambulatory JYOTI JOHNSON Not Available Start: 01-02-2024 End: 01-02-2024 ambulatory JYOTI JOHNSON Not Available Start: 12-26-2023 End: 12-29-2023 Evaluation and management of inpatient DO Susanne Cannon Work Phone: [facility] Work Phone: Start: 12-25-2023 End: 12-25-2023 [facility] Start: 12-24-2023 End: 12-24-2023 ambulatory SHAIKH ISELA Not Available Start: 12-11-2023 End: 12-11-2023 ambulatory MONROE BURGOS Not Available Start: 12-03-2023 End: 12-03-2023 ambulatory [facility] Start: 11-23-2023 End: 11-23-2023 ambulatory [facility] Start: 11-19-2023 End: 11-19-2023 ambulatory SHAIKH ISELA Not Available Start: 11-13-2023 End: 11-13-2023 ambulatory [facility] Start: 11-12-2023 End: 11-12-2023 Evaluation and management of inpatient [facility] Start: 11-09-2023 End: 11-09-2023 ambulatory [facility] Start: 11-06-2023 End: 11-06-2023 ambulatory [facility] Start: 2023 End: 2023 ambulatory [address]CON [facility] Start: 10-24-2023 End: 10-24-2023 ambulatory SHAIKH CRISTINAD Not Available Start: 10-19-2023 End: 10-21-2023 Emergency department [facility] Start: 10-19-2023 End: 10-21-2023 Emergency department patient [facility] Start: 10-19-2023 End: 10-20-2023 [facility] Start: 10-11-2023 End: 10-11-2023 ambulatory MARTINEZ CRISTINAD Not Available Start: 10-10-2023 End: 10-11-2023 Emergency department patient visit DEVORAH MALDONADO [facility] Start: 10-05-2023 End: 10-06-2023 Emergency department patient visit ADA Perez ANTHONY [facility] Start: 10-05-2023 End: 10-06-2023 Emergency department patient visit ADA Perez ANTHONY [facility] Start: 09-20-2023 End: 09-20-2023 ambulatory SHAIKH CRISTINAD Not Available Start: 09-20-2023 End: 09-20-2023 ambulatory ALFA GUNTER [facility] Start: 09-18-2023 End: 09-18-2023 ambulatory [facility] K[facility]CTSh[facility]ram [facility] Start: 08-30-2023 End: 08-30-2023 ambulatory SHAIKH CRISTINAD [facility] Start: 08-28-2023 End: 08-28-2023 ambulatory MARTINEZ FAWWAD Not Available Start: 08-15-2023 End: 08-15-2023 ambulatory MARTINEZ KORINCTD [facility] Start: 08-15-2023 Telephone encounter Regina Mullen [facility] Comment on above: need office notes Start: 08-08-2023 End: 08-08-2023 ambulatory [facility] In[facility] Chair 1 [facility] Comment on above: Metastatic cancer to axillary lymph nodes ([facility]) (Primary Dx) Start: 08-03-2023 Telephone encounter Blanca gamboa MD Work Phone: [facility] Start: 08-02-2023 End: 08-02-2023 ambulatory SHAIKH ISELA Not Available Start: 08-01-2023 End: 08-01-2023 ambulatory [facility] Start: 08-01-2023 End: 08-01-2023 Office outpatient visit 25 minutes Blanca Rosales MD Work Phone: [facility] Comment on above: Cervical dystonia (P rimary Dx); Torsion dystonia; Myofascial pain; Essential tremor Start: 07-27-2023 End: 08-27-2023 ambulatory [facility] Start: 07-24-2023 Telephone encounter Adeline Iqbal CMA [facility] Start: 07-22-2023 Velvet Gunter MD Work Phone: [facility] On[facility] Start: 07-13-2023 Telephone encounter [facility] [place] [facility] Start: 07-12-2023 End: 07-12-2023 ambulatory [facility] Start: 07-11-2023 End: 07-11-2023 ambulatory [facility] Start: 07-10-2023 Telephone encounter Argenis mathias [facility] Comment on above: emg order fax Start: 07-10-2023 End: 07-27-2023 ambulatory [facility] Start: 07-09-2023 Orders Only Shaikh Isela ACOSTA Work Phone: [facility] Comment on above: Stage 3a chronic kid jackie disease (HCC) ([facility]) Benign essential HTN ([facility]) Start: 07-06-2023 End: 07-06-2023 Office outpatient visit 25 minutes Rodolfo Avila MD Work Phone: [facility] Comment on above: Diabetic peripheral neuropathy (CMS-HCC) (Primary Dx); Vitamin B12 deficiency; Vitamin B6 deficiency; Ulnar neuropathy at elbow of right upper extremity; Torticollis Start: 07-06-2023 Telephone encounter [facility] Comment on above: BOTOX INJECTIONS Start: 07-06-2023 End: 07-06-2023 ambulatory KILO Raul HINES [facility] Start: 07-04-2023 Bamboo flowsheet Shaikh Isela ACOSTA Work Phone: [facility] Start: 07-04-2023 Bamboo flowsheet Shaikh Isela ACOSTA Work Phone: [facility] Start: 07-04-2023 End: 07-04-2023 Transitional care manage srvc 14 day discharge Shaikh Isela ACOSTA Work Phone: [facility] Comment on above: Type 2 diabetes rah itus with diabetic polyneuropathy, with long-term current use of insulin (CMS/HCC) (Primary Dx); Benign essential HTN (CMS/HCC); Stage 3a chronic kidney disease (HCC) (CMS/HCC); Type 2 diabetes mellitus with diabetic neuropathy, unspecified ([facility]); Ventricular bigeminy seen on director of cardiac rehabilitation; Coronary artery disease 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 (CMS/HCC); Chronic diastolic HF (heart failure) ([facility]) Start: 07-04-2023 End: 07-04-2023 ambulatory SHAIKH ISELA Not Available Start: 07-01-2023 End: 07-02-2023 Emergency department patient visit ERWIN ASTORGALIN [facility] Start: 06-28-2023 End: 06-28-2023 ambulatory MARTINEZ ISELA [facility] Start: 06-22-2023 End: 06-26-2023 Evaluation and management of inpatient MAURO PALMER [facility] Start: 06-21-2023 End: 06-26-2023 Emergency department patient visit ADA GALLAGHER [facility] Start: 06-21-2023 End: 06-25-2023 Evaluation and management of inpatient MARTINEZ FAWWAD [facility] Start: 06-21-2023 End: 06-21-2023 ambulatory MARTINEZ FAWWAD Not Available Start: 06-20-2023 Telephone encounter Deysi [facility] Comment on above: reschd 06/22/23 appt Start: 05-17-2023 End: 05-17-2023 ambulatory MARTINEZ FAWWAD [facility] Start: 05-10-2023 Patient encounter procedure Shaikh Isela ACOSTA Work Phone: [facility] Start: 05-10-2023 End: 05-10-2023 ambulatory MARTINEZ FAWWAD Not Available Start: 03-28-2022 End: 03-29-2022 ambulatory MARTINEZ H FAWWAD Facility:[facility]1 Start: 02-27-2022 End: 02-28-2022 ambulatory MARTINEZ H FAWWAD Facility:[facility] Start: 02-20-2022 End: 02-21-2022 ambulatory MARTINEZ H FAWWAD Facility:[facility] Start: 02-07-2022 End: 02-08-2022 ambulatory MARTINEZ H FAWWAD Facility:[facility] Start: 11-14-2021 End: 11-15-2021 ambulatory MARTINEZ H FAWWAD Facility:[facility] Start: 10-07-2021 End: 10-08-2021 ambulatory MARTINEZ H FAWWAD Facility:[facility] Start: 09-20-2021 End: 09-21-2021 ambulatory MARTINEZ H FAWWAD Facility:H1 Start: 08-22-2021 End: 08-23-2021 ambulatory MARTINEZ H FAWWAD Facility:H1 Start: 05-27-2021 End: 05-28-2021 ambulatory MARTINEZ H FAWWAD Facility:H1 Start: 05-04-2021 End: 05-04-2021 ambulatory MARTINEZ H FAWWAD Facility:H1 Start: 04-28-2021 End: 04-29-2021 ambulatory MARTINEZ H FAWWAD Facility:H1 Start: 07-11-2019 End: 07-12-2019 Patient encounter procedure [facility]AB A [facility] Facility:[facility] Procedures Date Procedure Procedure Detail Performing Clinician Start: 12-26-2023 SARS-CoV-2, Influenz a & RSV (PCR) DO Susanne Cannon Work Phone: Start: 12-26-2023 Plain chest X-ray DO Poli Cannon Work Phone: Start: 11-09-2023 Follow-up visit Follow-up BO L KATEY Start: 09-20-2023 Follow-up visit Follow-up ALFA MARTINS Start: 08-01-2023 Adult depression scr eening assessment Blanca Rosales MD Work Phone: Start: 01-13-2021 Colonoscopy Deysi Landa viadaniele Plan of Treatment Date Care Activity Detail Author Start: 01-13-2026 Screening for malign ant neoplasm of colon Colonoscopy [facility] Start: 12-26-2024 Glaucoma screening Diabetes: R etinopathy Screening [facility] Start: 07-31-2024 Adult BMI Screening Adult BMI Screen ing [facility] Start: 07-31-2024 Depression Screening Depression Scre ening [facility] Start: 07-31-2024 Tobacco Screening Tobacco Screening [facility] Start: 07-09-2024 Adult BMI Screening Adult BMI Screen ing [facility] Start: 07-06-2024 Tobacco Screening Tobacco Screening [facility] Start: 05-10-2024 Medicare Annual Well ness (AWV) Medicare Annual Wellness (AWV) [facility] Start: 03-22-2024 Adult BMI Screening Adult BMI Screen ing [facility] Start: 03-21-2024 Tobacco Screening Tobacco Screening [facility] Start: 12-29-2023 [facility] Start: 12-28-2023 [facility] Start: 12-27-2023 [facility] Start: 12-26-2023 Hospital admission [facility] Start: 12-26-2023 [facility] Start: 11-06-2023 End: 11-06-2023 Patient encounter procedure 11/06/2023 11:00 AM EDT Office Visit [facility] [address] [facility] [place] [phone] Kilo Hines PA-C [address] [facility] [place] [phone] [facility] Neurology Start: 2023 End: 2023 Patient encounter procedure 2023 11:45 AM EDT Appointment [facility] - Mammogram DEXA [address] [place] [phone] [facility] - Mammogram DEXA Start: 09-20-2023 End: 09-20-2023 Patient encounter procedure 09/20/2023 10:00 AM EDT Office Visit Chayito Camejo [facility] - Medical Oncology [address] [place] [phone] Alfa Gunter MD [address] [place] [address] [address] [place] [address] Chayito L [place] [facility] - Medical Oncology Start: 09-18-2023 End: 09-18-2023 ambulatory 09/18/2023 10:20 AM EDT Infusion Chayito L [place] [facility] Oncology [address] [place] [phone] Chayito L [facility] Medical Oncology Start: 08-15-2023 End: 08-15-2023 Patient encounter procedure 08/15/2023 2:45 PM EDT Appointment [facility] - MRI Imaging [address] [place] [phone] [facility] - MRI Imaging Start: 08-14-2023 End: 08-14-2023 Patient encounter procedure 08/14/2023 9:30 AM EDT Office Visit [facility] [address] [place] [address] Shaikh Weiss MD [address] [place] [address] [facility] Start: 08-11-2023 Tobacco Counseling Tobacco [facility]rogers [facility] Start: 08-09-2023 End: 08-09-2023 ambulatory 08/09/2023 11:00 AM EDT Infusion Chayito Camejo [facility] - Medical Oncology [address] [place] [address] Chayito Camejo [facility] Oncology Start: 08-02-2023 End: 08-02-2023 Patient encounter procedure 08/02/2023 9:30 AM EST Office Visit [facility] [address] [place] [address] Shaikh Weiss MD [address] [place] [address] [facility] Start: 08-01-2023 End: 08-01-2023 Patient encounter procedure 08/01/2023 12:00 PM EST Office Visit [facility] [address] [place] [phone] Blanca Rosales MD [address] [place] [address], [address], [address], [address] [place] [address] [facility] Start: 07-27-2023 End: 07-27-2023 Patient encounter procedure 07/27/2023 11:15 AM EST Appointment [facility] - Total Rehab [address] [place] [phone] [facility] - Total Rehab Start: 07-19-2023 End: 07-19-2023 Patient encounter procedure 07/19/2023 9:30 AM EST Appointment [facility] [address] [place] [phone] Ulnar neuropathy at elbow of right upper extremity; Torticollis [facility] Comment on above: Ulnar neuropathy at elbow of right upper extremity; Torticollis Start: 07-18-2023 Adult BMI Follow Up Plan Adult BMI Follow Up Plan [facility] Start: 07-16-2023 End: 07-16-2023 Patient encounter procedure 07/16/2023 10:00 AM EST Office Visit [facility] [address] [facility] [address] [place] [address] Baylee Yadav, MATERIAL REQUIREMENTS PLANNING MANAGER-CONTINUOUS WASHER OPERATOR [address] [facility] [place] [address] [facility] Start: 07-12-2023 End: 07-12-2023 Patient encounter procedure 07/12/2023 2:15 PM EST Appointment Jocelyne Lackey [facility] [address] [place] [phone] Miraseraklaus Ziyad [facility] Start: 07-12-2023 Subsequent hospital visit by physician 07/12/2023 2:15 PM EST Hospital Encounter Jocelyne Lackey [facility] [address] [place] [address] [facility]ocelyne [facility] Start: 07-04-2023 End: 07-04-2024 Basic metabolic 1998 panel - Serum or Plasma Basic metabolic panel Lab Routine Stage 3a chronic kidney disease (HCC) (CMS/HCC) Expected: 07/04/2023 (Approximate), Expires: 07/04/2024 [facility] Work Phone: Comment on above: Expected: 07/04/2023 (Approximate), Expires: 07/04/2024 Start: 07-04-2023 End: 07-04-2023 Patient encounter procedure 07/04/2023 9:15 AM EST Office Visit [facility] [place] [address] [place] [address] Shaikh Weiss MD [address] [place] [phone] Arrived [facility] Comment on above: Arrived Start: 06-28-2023 End: 06-28-2023 ambulatory 06/28/2023 11:00 AM EST Infusion Chayito Milligan [place] [facility] - Medical Oncology [address] [place] [phone] Chayito Camejo [facility] - Medical Oncology Start: 06-22-2023 End: 06-22-2023 Patient encounter procedure 06/22/2023 3:00 PM EST Office Visit [facility] [address] [facility] [place] [address] Rodolfo Avila MD [address] [facility] [place] [phone] Kilo Hines PA-C [address] [facility] [place] [address] [facility] Start: 04-17-2023 COVID-19 Vaccine ( season) COVID-19 Vaccine ( season) [facility] Start: 02-25-2023 Hemoglobin A1c measurement Diabetes: Hemoglobin A1C [facility] Start: 05-23-2022 ambulatory Ambulatory Facility: 1 Start: 11-02-2007 Fall Risk Screening Fall Risk Screen ing [facility] Start: 1961 DTaP,Tdap and Td Vac cines (1 - Tdap) DTaP,Tdap and Td Vaccines (1 - Tdap) [facility] Start: 1954 [facility] End: 07-06-2024 Cyanocobalamin vitamin b-12 Vitamin B12 Lab Routine Diabetic peripheral neuropathy (CMS-HCC) Vitamin B12 deficiency Vitamin B6 deficiency 1 Occurrences starting 07/06/2023 until 07/06/2024 [facility] Work Phone: Comment on above: 1 Occurrences starti ng 07/06/2023 until 07/06/2024 End: 07-06-2024 EMG NCV EMG NCV Neurology Routine Diabetic peripheral neuropathy ([facility]) Ulnar neuropathy at elbow of right upper extremity 1 Occurrences starting 07/06/2023 until 07/06/2024 [facility] Comment on above: 1 Occurrences starti ng 07/06/2023 until 07/06/2024 End: 07-06-2024 Vitamin B2 Vitamin B2 Lab Routine Diabetic peripheral neuropathy ([facility]) Vitamin B12 deficiency Vitamin B6 deficiency 1 Occurrences starting 07/06/2023 until 07/06/2024 [facility] Comment on above: 1 Occurrences starti ng 07/06/2023 until 07/06/2024 End: 07-06-2024 Vitamin B6 Vitamin B6 Lab Routine Diabetic peripheral neuropathy ([facility]) Vitamin B12 deficiency Vitamin B6 deficiency 1 Occurrences starting 07/06/2023 until 07/06/2024 [facility] Comment on above: 1 Occurrences starti ng 07/06/2023 until 07/06/2024 Immunizations Immunization Date Immunization Notes Care Provider [facility] 02-20-2023 Influenza, Seasonal, Quadrivalent, Adjuvanted Shaikh Isela ACOSTA Work Phone: [facility] 02-25-2022 influenza virus vaccine, unspecified formulation Shaikh Isela ACOSTA Work Phone: [facility] 02-21-2022 Influenza, High-dose Seasonal, Quadrivalent, Preservative Free Shaikh Isela ACOSTA Work Phone: [facility] 03-02-2021 Pfizer Purple Cap SARS-CoV-2 Vaccination Shaikh Isela ACOSTA Work Phone: [facility] 02-25-2021 Influenza, Seasonal, Quadrivalent, Adjuvanted Shaikh Isela ACOSTA Work Phone: [facility] 07-07-2020 Pfizer Purple Cap SARS-CoV-2 Vaccination Shaikh Isela ACOSTA Work Phone: [facility] 06-18-2020 Pfizer Purple Cap SARS-CoV-2 Vaccination Shaikh Isela ACOSTA Work Phone: [facility] 07-07-2019 zoster vaccine recombinant Shaikh Isela ACOSTA Work Phone: [facility] 04-11-2019 zoster vaccine recombinant Shaikh Isela ACOSTA Work Phone: [facility] 04-03-2019 influenza virus vaccine, unspecified formulation Shaikh Isela ACOSTA Work Phone: [facility] 03-21-2019 influenza virus vaccine, unspecified formulation DO Susanne Canonn Work Phone: [facility] 08-06-2018 influenza, injectabl e, quadrivalent, preservative free Shaikh Isela ACOSTA Work Phone: [facility] 03-04-2018 influenza virus vaccine, unspecified formulation DO Susanne Cannon Work Phone: [facility] 03-04-2018 Seasonal trivalent influenza vaccine, adjuvanted, preservative free Shaikh Isela ACOSTA Work Phone: [facility] 02-26-2017 influenza virus vaccine, unspecified formulation DO Susanne Cannon Work Phone: [facility] 02-26-2017 influenza, high dose seasonal, preservative-free Shaikh Isela ACOSTA Work Phone: [facility] Payers Date Payer Category Payer Medicare [id number] 2023 Self-pay [id number] 2022 Unknown [id number] 2022 Medicare [id number] 2022 Unknown [id number] 1959 Medicare [id number] 1959 Unknown [id number] 1942 Unknown [id number] 2.16.8 40.1.032093.3.579.2.647 1942 Unknown [id number] 2.16.84 0.1.818459.3.579.2.593 -194 Unknown [id number] 2.16.84 0.1.631936.3.579.2.593 194 Unknown [id number] 2.16.84 0.1.914216.3.579.2.593 194 Unknown [id number] 2.16.84 0.1.713783.3.579.2.593 1942 Unknown [id number] 2.16.84 0.1.059349.3.579.2.593 1942 Unknown [id number] 2.16.84 0.1.445072.3.579.2.593 194 Unknown [id number] 2.16.84 0.1.882475.3.579.2.593 194 Unknown [id number] 2.16.84 0.1.481288.3.579.2.593 194 Unknown [id number] 2.16.84 0.1.101357.3.579.2.593 194 Unknown [id number] 2.16.84 0.1.920308.3.579.2.593 194 Unknown [id number] 2.16.84 0.1.090658.3.579.2.593 194 Unknown [id number] 2.16.84 0.1.801231.3.579.2.593 1942 Unknown [id number] 2.16.8 40.1.852412.3.579.2.1286 194 Unknown [id number] 2.16.8 40.1.199666.3.579.2.1286 194 Unknown [id number] 2.16.8 40.1.403835.3.579.2.1286 194 Unknown [id number] 2.16.8 40.1.241573.3.579.2.1285 10-194 Unknown [id number] 2.16.8 40.1.572605.3.579.2.1285 10-194 Unknown [id number] 2.16.8 40.1.803714.3.579.2.1285 10-194 Unknown [id number] 2.16.8 40.1.982634.3.579.2.1285 10-194 Unknown [id number] 2.16.8 40.1.884557.3.579.2.1285 10-194 Unknown [id number] 2.16.8 40.1.331087.3.579.2.1285 10-194 Unknown [id number] 2.16.8 40.1.068224.3.579.2.1285 10-194 Unknown [id number] 2.16.8 40.1.719783.3.579.2.1285194 Unknown [id number] 2.16.8 40.1.648264.3.579.2.1285 10-194 Unknown [id number] 2.16.8 40.1.569640.3.579.2.1285194 Unknown [id number] 2.16.8 40.1.202165.3.579.2.1285194 Unknown [id number] 2.16.8 40.1.303307.3.579.2.1285194 Unknown [id number] 2.16.8 40.1.401055.3.579.2.1285194 Unknown [id number] 2.16.8 40.1.432674.3.579.2.1285194 Unknown [id number] 2.16.8 40.1.864954.3.579.2.1285 10-1943 Unknown [id number] 2.16.8 40.1.017155.3.579.2.1285 1942 Unknown [id number] 2.16.8 40.1.028141.3.579.2.1286 1942 Unknown [id number] 2.16.8 40.1.902480.3.579.2.1286 1942 Unknown [id number] 2.16.8 40.1.728397.3.579.2.1286 1942 Unknown [id number] 2.16.8 40.1.590929.3.579.2.1286 1942 Unknown [id number] 2.16.8 40.1.802117.3.579.2.128 1942 Unknown [id number] 2.16.8 40.1.628168.3.579.2.128 1942 Unknown [id number] 2.16.8 40.1.784936.3.579.2.128 1942 Unknown [id number] 2.16.8 40.1.573347.3.579.2.1286 1942 Unknown [id number] 2.16.8 40.1.724680.3.579.2.128 1942 Unknown [id number] 2.16.8 40.1.373694.3.579.2.1286 1942 Unknown [id number] 2.16.8 40.1.660461.3.579.2.128 1942 Unknown [id number] 2.16.8 40.1.294707.3.579.2.1286 1942 Unknown [id number] 2.16.8 40.1.798233.3.579.2.1286 1942 Unknown [id number] 2.16.84 0.1.068987.3.579.2.1286 1942 Unknown [id number] 2.16.84 0.1.441685.3.579.2.1259 1942 Unknown [id number] 2.16.84 0.1.603578.3.579.2.1259 1942 Unknown [id number] 2.16.84 0.1.666496.3.579.2.1259 1942 Unknown [id number] 2.16.84 0.1.839797.3.579.2.1259 1942 Unknown [id number] 2.16.84 0.1.943958.3.579.2.125 1942 Unknown [id number] 2.16.84 0.1.788264.3.579.2.1259 1942 Unknown [id number] 2.16.84 0.1.193060.3.579.2.1258 1942 Unknown [id number] 2.16.84 0.1.211713.3.579.2.9 1942 Unknown [id number] 2.16.84 0.1.005295.3.579.2.125 1942 Unknown [id number] 2.16.84 0.1.555703.3.579.2.125 1942 Unknown [id number] 2.16.84 0.1.144495.3.579.2.1259 1942 Unknown [id number] 2.16.84 0.1.910458.3.579.2.9 1942 Unknown [id number] 2.16.840 .1.403131.3.579.2.1259 Unknown [id number] 2.16.8 40.1.733868.3.579.2.531 Social History Date Type Detail Facility Start: 07-18-2022 Tobacco smoking status NHIS Occasional tobacco smoker [facility] End: 03-23-2023 History of tobacco use Cigarette Smoker [facility] Start: 07-18-2022 End: 06-22-2023 Tobacco use and exposure Smokeless tobacco non-user [facility] Start: 03-21-2023 End: 08-01-2023 Alcohol intake Current drinker of alcohol (finding) [facility] Start: 07-08-2020 End: 03-21-2023 History of Social function [facility] Start: 07-08-2020 End: 03-21-2023 Tobacco use panel [facility] Childcare Unknown [facility] Start: 07-18-2022 Tobacco Comment 1 pack a month [facility] Start: 07-15-2018 Alcohol Comment minimal- twice a month [facility] Start: 1940 Sex Assigned At Not on file [facility] Start: 05-10-2023 End: 06-22-2023 Tobacco smoking status NHIS Ex-smoker [facility] Start: 12-26-2023 End: 03-23-2023 History of tobacco use Current smoker [facility] Start: 06-21-2023 End: 07-04-2023 Alcohol intake Lifetime non-drinker (finding) [facility] Within the last year , have you been afraid of your partner or ex-partner? No [facility] Do you belong to any clubs or organizations such as sabianism groups, [employer], [employer] or athletic groups, or school groups? Yes [facility] Are you now , , , , never or living with a partner? [facility] How often to you hav e a drink containing alcohol? Never [facility] Do you feel stress - tense, restless, nervous, or anxious, or unable to sleep at night because your mind is troubled all the time - these days [OSQ] Not at all [facility] (I/We) worried wheth er (my/our) food would run out before (I/we) got money to buy more. Never true [facility] Start: 04-27-2023 Tobacco Comment 5 or less cigarettes/dayStarted smoking 28 yrs, 20 yrs [facility] Start: 1940 Sex Assigned At Female [facility] Start: 06-22-2023 Gender identity Identifies as female gender (finding) [facility] Start: 06-22-2023 Sexual orientation Heterosexual (finding) [facility] Medical Equipment Procedure Code Equipment Code Equipment Origin al Text Equipment Identifier Dates Introducer Zen Plwy 30cm 8fr 5cm Perc Mp Strl Disp Acpt - [id number] , [id number] FDA Start: 10-21-2021 Port Powerport C lrvu Argd 8fr 1 Lum Ltwt Intmd Leanne Pu - [id number] , [id number] FDA Start: 10-21-[address] Her ricardo Patch [id number] Start: 08-16-2018 1 each by Other route in the morning and 1 each in the evening and 1 each before bedtime. Use as instructed. [id number] Goals Date Patient Goal Desired Activity /State Personal health goal Comment on above: Formatting of this n ote might be different from the original. Evaluation of progress towards goal: under assessment Personal health goal Comment on above: Formatting of this n ote might be different from the original. Evaluation of progress towards goal: Home with oxygen. Clinical Notes 06-20-2023 to 12-03-2023 Telephone Encounter - Regina Mullen - 08/15/2023 10:37 AM EDTTelephone Encounter - Huseyin Becker CMA - 08/15/2023 10:37 AM EDTTelephone Encounter - Regina Mullen - 08/15/2023 10:37 AM EDT Note Date & Type Note Facility 12-03-2023 Note [facility] Cardiology Clinic Note Chief Complaint: Patient here for follow up VT on Holter monitor. She had pneumonia in September 2023 and was started on oxygen at night. She has completely stopped smoking. Denies chest pain, but does feel her heart racing. HPI: Krista Ly is a 83 y.o. female With a history of known moderate two-vessel coronary artery disease, hypertension and HFpEF here due to palpitations Pertinently, she was diagnosed with a pneumonia in September of this year. Soon thereafter, she started experiencing palpitations as well as worsening exertional shortness of breath. She denies chest pain. She has no orthopnea, no paroxysmal: Dyspnea, and no lower extremity Cardiology ROS: Review of Systems Cardiovascular: Positive for dyspnea on exertion, leg swelling (intermittent) and palpitations ( racing ). Musculoskeletal: Positive for muscle weakness. Neurological: Positive for weakness. All other systems reviewed and are negative. Past Medical History She has no past medical history on file. Surgical History She has no past surgical history on file. Social History She reports that she has been smoking cigarettes. She has a 15.00 pack-year smoking history. She has never used smokeless tobacco. No history on file for alcohol use and drug use. Family History No family history on file. Allergies Lisinopril Medications Current Outpatient Medications: alogliptin (Nesina) 12.5 mg tablet, Take 12.5 mg by mouth in the morning., Disp: , Rfl: aspirin 81 mg EC tablet, Take 81 mg by mouth in the morning., Disp: , Rfl: atorvastatin (Lipitor) 80 mg tablet, Take 80 mg by mouth in the morning., Disp: , Rfl: buPROPion SR (Wellbutrin SR) 150 mg 12 hr tablet, Take 1 tablet (150 mg) by mouth in the morning and at bedtime. Do not crush, chew, or split., Disp: 180 tablet, Rfl: 3 cyanocobalamin (Vitamin B-12) 1,000 mcg tablet, Take 1,000 mcg by mouth in the morning., Disp: , Rfl: furosemide (Lasix) 40 mg tablet, Take 40 mg by mouth in the morning., Disp: , Rfl: hydroCHLOROthiazide (HYDRODiuril) 25 mg tablet, Take 25 mg by mouth in the morning., Disp: , Rfl: insulin glargine (Lantus) 100 unit/mL injection, Inject under the skin., Disp: , Rfl: letrozole (Femara) 2.5 mg chemo tablet, Take 2.5 mg by mouth in the morning, Disp: , Rfl: losartan (Cozaar) 25 mg tablet, Take 25 mg by mouth 1 (one) time each day at the same time., Disp: , Rfl: metFORMIN (Glucophage) 1,000 mg tablet, Take 500 mg by mouth., Disp: , Rfl: metoprolol succinate XL (Toprol-XL) 25 mg 24 hr tablet, Take 0.5 tablets (12.5 mg) by mouth in the morning. Do not crush or chew., Disp: 45 tablet, Rfl: 3 nicotine (Nicoderm CQ) 7 mg/24 hr patch, Place 1 patch on the skin 1 (one) time each day at the same time., Disp: 90 patch, Rfl: 3 pregabalin (Lyrica) 75 mg capsule, Take 150 mg by mouth twice a day., Disp: , Rfl: rOPINIRole (Requip) 3 mg tablet, Take 3 mg by mouth in the morning., Disp: , Rfl: Last Recorded Vitals BP 120/73 (BP Location: Right arm, Patient Position: Sitting) Pulse 88 Ht 1.6 m (5' 3 ) Wt 92.5 kg (204 lb) SpO2 94% BMI 36.14 kg/m??? Physical Examination: GENERAL: alert and oriented x3, well developed, in no acute distress. HEAD: atraumatic, normocephalic. EYES: JASMINA, EOMI. NECK: trachea midline, no JVD present, no carotid bruits present. CARDIAC: S1, S2 present. RRR. No murmur, rubs, or gallops. RESPIRATORY: CTAB, no increased effort of breathing, no rales, rhonchi, or wheezing. ABDOMEN: soft, nontender, nondistended. EXTREMITIES: no lower extremity edema, peripheral pulses are 2+ bilaterally. No rash/skin discoloration present. Stigmata of venous insufficiency. NEURO: strength/sensation equal and symmetric in bilateral upper and lower extremities. PSYCH: appropriate mood, affect, and judgement. Investigations: Stress test 06/12/2019: No acute or reversible ischemia Fixed perfusion defect of the inferior lateral wall Mild hypokinesia of the apex Normal ejection fraction Cardiac catheterization 07/11/2019 Final impressions: Moderate two-vessel coronary artery disease Normal global left ventricular systolic function by noninvasive imaging Normal right-sided heart pressures and wedge pressures Normal cardiac output/cardiac index Mild systemic hypertension Recommendations: Consider alternate etiologies for the patient's symptomatology namely pulmonary, gastrointestinal, and/or musculoskeletal Aggressive cardiovascular is factor modification Optimization of medical management Echocardiogram 07/18/2019 Normal left ventricular systolic function with no significant valvular disorders Holter monitor 11/09/2023 Predominant rhythm is sinus with average rate of 83 bpm Fastest rate was 181 bpm PSVT with slowest rate was 54 bpm Longest episode of sinus bradycardia was 21 seconds Longest episode of sinus tachycardia was 11 minutes and 6 seconds with r (more content not included)... [facility] 10-05-2023 Note XR CHEST 2 VWS Procedure: Chest x-ray performed Number of views:PA and lateral History:Shortness of breath Comparison:07/01/2023 Findings: The heart and mediastinal silhouette are stable. There is a small right pleural effusion. No focal consolidations are seen. The pulmonary vasculature is normal. There is no pneumothorax. There is a Mediport catheter unchanged Impression: Small right pleural effusion Finalized by Leona Celis DO on 10/05/2023 5:[address] [facility] 08-15-2023 Miscellaneous Notes Emma from [facility] called to get the office note from 08 01 23 faxed over for patient care soon as possible. Fax number is [phone] Emma [phone] EXT [phone] Faxed last office note from 08 01 23 to [facility] [facility] Fax #: [phone] Confirmation received documented in this encounter [facility] 08-15-2023 Telephone encounter Note Emma from [facility] called to get the office note from 08 01 23 faxed over for patient care soon as possible. Fax number is [phone] Emma [phone] EXT [phone] [facility] 08-15-2023 Telephone encounter Note Faxed last office note from 08 01 23 to [facility]. Fax #: [phone] Confirmation received [facility] 08-08-2023 History of Present illness Narrative Port flushed per protocol. documented in this encounter [facility] 08-03-2023 Miscellaneous Notes CPT 62840 for diagnostic code G24.3 CPT 84058 and 89092 for diagnostic code G24.1 CPT 47729 for diagnostic code G24.1 and M79.18 Authorize 300 units. During 1st injection: Will use maximum of 100 unit (1 vial) on first session. 1:1 dilution (1 ml NS for 1 vial of 100 unit). Will need EMG machine and 26 G (green) Ambu Neuroline Innoject needle. documented in this encounter [facility] 08-03-2023 Telephone encounter Note CPT 73937 for diagnostic code G24.3 CPT 31224 and 40439 for diagnostic code G24.1 CPT 49635 for diagnostic code G24.1 and M79.18 Authorize 300 units. During 1st injection: Will use maximum of 100 unit (1 vial) on first session. 1:1 dilution (1 ml NS for 1 vial of 100 unit). Will need EMG machine and 26 G (green) Ambu Neuroline Innoject needle. [facility] Work Phone: 08-01-2023 History of Present illness Narrative Images from the original note were not included. [address] [facility] [address] Patient: Krista Ly Date of : 1940 Encounter Date: 08/01/2023 Patient Care Team: Shaikh Isela MD as PCP - General (Internal Medicine) Alfa Gunter MD as Consulting Physician (Hematology) Jewels Finch DO as Consulting Physician (Radiation Oncology) RADHA Welch as Genetic Counselor (Oncology) Bo Rincon MD as Consulting Physician (Breast Surgery) Gladys Huddleston DO as Referring Physician (Family Medicine) History of Present Illness: The patient is a 82 y.o. female, an established patient, and is here for No chief complaint on file. . Summary of Condition: HPI Handedness: Right handed. Since the last visit, patient has continued to notice neck pain, neck muscle tightness, and abnormal posture of the head/ neck, with pulling of her head forward and down. On further questioning, she denied any hand tremors but later admitted to noticing some tremors in her family members, such as her mother and her maternal grandmother. Allergies: Lisinopril Review of Relevant Patient Questionnaires: HIT 6: No data to display PHQ-9: 08/01/2023 12:03 PM PM AMB PHQ 9 Little interest or pleasure in doing things 0 Feeling down, depressed, or hopeless 0 Total Score 0 PHQ-15: No data to display MARY-7: No data to display PTSD: No data to display [place]: No data to display YAZ-10: No data to display Past Medical, Family, Surgical, and Social History Update: The following portions of the patient's history were reviewed and updated as appropriate: allergies, current medications, past family history, past medical history, past social history, past surgical history and problem list. Past Medical History: Diagnosis Date Breast cancer ([facility]) 2001 LT Breast cancer ([facility]) 07/26/2021 RIGHT Diabetes ([facility]) Diabetes mellitus type 2, controlled ([facility]) HTN (hypertension) Hyperlipidemia MA (myocardial infarction) ([facility]) Pneumonia Restless leg Stage 3a chronic kidney disease ([facility]) 07/18/2022 Family History Problem Relation Age of Onset Hypertension Mother Heart attack Father Hypertension Father Lung cancer Father 80 +smoking Breast cancer Sister Jose L Breast Cancer Daughter Breast cancer Daughter 56 Past Surgical History: Procedure Laterality Date BREAST BIOPSY BREAST LUMPECTOMY Left 2001 RADIATION AND CHEMO BREAST LUMPECTOMY Right 08/12/2021 CATARACT EXTRACTION CHOLECYSTECTOMY COLECTOMY COLONOSCOPY 12/15/2015 Dr. Cortez COLONOSCOPY N/A 01/13/2021 Performed by Jose Eduardo Hughes DO at [facility] HYSTERECTOMY MASTECTOMY Right MASTECTOMY W/ SENTINEL NODE BIOPSY Right 09/02/2021 OOPHORECTOMY REPAIR HERNIA VENTRAL. incarcerated N/A 08/16/2018 Performed by Kemar Beltre MD at [facility] Current Outpatient Medications Medication Sig Dispense Refill alogliptin-metFORMIN 12.5-1,000 mg tablet Take 12.5 mg by mouth daily. aspirin 81 mg Take 1 tablet (81 mg total) by mouth in the morning. atorvastatin (LIPITOR) 80 mg tablet Take 1 tablet (80 mg total) by mouth in the morning. carvedilol (COREG) 3.125 mg tablet Take 4 tablets (12.5 mg total) by mouth in the morning and 4 tablets (12.5 mg total) before bedtime. furosemide (LASIX) 40 mg tablet Take 0.5 tablets (20 mg total) by mouth daily. insulin glargine (LANTUS) 100 unit/mL injection Inject 0.35 mL (35 Units total) under the skin in the morning. letrozole (FEMARA) 2.5 mg chemo tablet TAKE 1 TABLET BY MOUTH EVERY DAY 90 tablet 3 levothyroxine (SYNTHROID, LEVOTHROID) 50 MCG tablet Take 1 tablet (50 mcg total) by mouth in the morning. losartan (COZAAR) 25 mg tablet Take 1 tablet (25 mg total) by mouth daily. metFORMIN (GLUCOPHAGE) 1000 mg tablet Take 0.5 tablets (500 mg total) by mouth in the morning and 0.5 tablets (500 mg total) in the evening. Take with meals. pregabalin (LYRICA) 75 mg capsule Take 2 capsules (150 mg total) by mouth in the morning and 2 capsules (150 mg total) before bedtime. rOPINIRole (REQUIP) 3 mg tablet Take 5 mg by mouth 3 (three) times a day. hydroCHLOROthiazide (HYDRODIURIL) 25 mg tablet hydrochlorothiazide 25 mg tablet TAKE 1 TABLET BY MOUTH EVERY DAY (Patient not taking: Reported on 07/06/2023) No current facility-administered medications for this visit. (All medications reviewed and updated by provider since last office visit or hospitalization) Tobacco History: Social History Tobacco Use Smoking Status Former Packs/day: 1.00 Years: 30.00 Additional pack years: 0.00 Total pack years: 30.00 Types: Cigarettes Quit date: 03/23/2023 Years since quittin.3 Smokeless Tobacco Never Tobacco Comments 1 pack a month (If patient a smoker, smoking cessation counseling offered) Social History: Social History Substance and Sexual Activity Alcohol Use Yes Alcohol/week: 2.0 standard drinks of alcohol Types: 1 Glasses of wine, 1 Shots of liquor per week Comment: minimal- twice a month Review of Systems: Neurological ROS: Review of Systems Constitutional: Negative for appetite change, chills, fatigue, fever and unexpected weight change. HENT: Negative for drooling, hearing loss, rhinorrhea, tinnitus, trouble swallowing and voice change. Eyes: Negative for visual disturbance. Respiratory: Negative for cough and shortness of breath. Cardiovascular: Negative for chest pain, palpitations and leg swelling. Gastrointestinal: Negative for abdominal pain, constipation, diarrhea and nausea. Endocrine: Negative for cold intolerance and heat intolerance. Genitourinary: Negative for frequency. Musculoskeletal: Negative for arthralgias, back pain, myalgias and neck pain. Skin: Negative for rash. Neurological: Negative for dizziness, tremors, syncope, weakness, light-headedness, numbness and headaches. Hematological: Does not bruise/bleed easily. Psychiatric/Behavioral: Negative for behavioral problems, confusion, dysphoric mood, hallucinations and sleep disturbance. The patient is not nervous/anxious. Physical Exam: Vitals: Vitals: 08/01/23 1202 Weight: 104.3 kg (230 lb) Neurological Physical Exam: Neurology Physical Exam Awake, alert, oriented. Cranial nerves 2-12 grossly intact. Normal muscle tone and strength. Anterocollis with head tilt to the right noted. Dystonic spasms noted in bilateral sternocleidomastoid, and levator scapulae muscles, as well as some thoracic paraspinal muscles. Kinetic and postural tremors noted in bilateral hands. No dysdiadochokinesia, bradykinesia or resting tremor. MDS-UPDRS: @FLOW([id number] 32,[id number], [id number],[id number],210 963642,835002787,[id number],355026 137,405858946,160424632,439975500 ,[id number],[id number],[id number],21 0900117,[id number],[id number],57182 8142,[id number],[id number],[id number] 5,[id number],[id number],[id number],2 [id number],[id number],[id number],2102 09078,[id number],[id number],9632112 78,[id number],[id number],[id number]) @ TETRAS: @FLOW([id number],23670,43075,61682,156 95,96620,29974,66512,05087,43048, 41243,58810,45804,18555,19077,157 24,26997,39774,51312,51787,68001, 69469,46315,33451,49182,73860,157 58,05594,37427,44984,05003,12229, 26655,12812,84174,89026,98216,159 81,11557,33935,07309,42254,30972, 47914,59550,41333,27179,12224)@ Assessment and Plan: Diagnoses and all orders for this visit: Cervical dystonia Torsion dystonia Myofascial pain Essential tremor Problem List None Impression: This 82-year-old woman most likely has essential tremor and cervical dystonia. Plan: Regarding dystonic features, recommend botulinum toxin injections since patient is bothered by these symptoms. Regarding hand tremors, recommend observation since patient does not seem bothered by the symptoms at present. Follow-up: As needed in clinic. Patient will follow-up in chemodenervation clinic. BLANCA ROSALES MD This note was created with the assistance of a speech recognition program. While intending to generate a timely document that accurately reflects the content of the visit, no guarantee can be provided that every grammatical or spelling mistake has been or will be identified or corrected. Thank you for your understanding. documented in this encounter [facility] 07-24-2023 Miscellaneous Notes [facility] PT Plan of Care has been placed in provider's folder for signature. [facility]-24-2023 Telephone encounter Note Received fax from [facility]. PT Plan of Care has been placed in provider's folder for signature. [facility] 07-13-2023 Miscellaneous Notes Summary: MRI results At direction of radiologist, patient contacted by phone and informed that breast MRI completed yesterday demonstrated no abnormal findings. Next mammogram to be completed in 10/2023 and no future MRI studies are needed per radiologist. Patient voices understanding. documented [facility] this [facility] 07-13-2023 Telephone encounter Note Summary: MRI results At direction of radiologist, patient contacted by phone and informed that breast MRI completed yesterday demonstrated no abnormal findings. Next mammogram to be completed in 10/2023 and no future MRI studies are needed per radiologist. Patient voices understanding. [facility] 07-11-2023 Note Hypertension is well controlled 125/75 [facility] 07-11-2023 Note Coronary artery dise ase is stable, no concerning symptoms Continue GDMT- ASA, lipitor continue risk factor modifications- heart healthy diet, regular exercise as tolerated and continue all medications. [facility] 07-11-2023 Note [facility] Note [facility] CARDIOLOGY PROGR ESS NOTE HPI: Krista Ly is a 82 y.o. female here for HTN and noted hypotension and dizziness- she recently stopped meds Patient here c/o hypotension. Says she stopped hydrochlorothiazide and carvedilol. Has been better since stopping those medications but was running around 80's/55. She was also getting a little lightheaded, but is feeling better. Patient has quit smoking completely. Has been using O2 around the clock at home. Noticed a slight increased in LE edema since stopping hydrochlorothiazide. Used to take lasix PRN but now takes it daily. [facility] Review of Systems Cardiovascular: Positive for dyspnea on exertion and leg swelling. Respiratory: Positive for shortness of breath. Musculoskeletal: Positive for muscle weakness. Neurological: Positive for light-headedness (improving) and weakness. All other systems reviewed and are negative. Visit Vitals BP 125/75 (BP Location: Right arm, Patient Position: Sitting) Pulse 72 Ht 1.6 m (5' 3 ) Wt 92.1 kg (203 lb) SpO2 92% BMI 35.96 kg/m??? Smoking Status Every Day BSA 2.02 m??? Allergies Allergen Reactions Lisinopril Cough Medications: Current Outpatient Medications on File Prior to Visit Medication Sig Dispense Refill alogliptin (Nesina) 12.5 mg tablet Take 12.5 mg by mouth in the morning. aspirin 81 mg EC tablet Take 81 mg by mouth in the morning. atorvastatin (Lipitor) 80 mg tablet Take 80 mg by mouth in the morning. cyanocobalamin (Vitamin B-12) 1,000 mcg tablet Take 1,000 mcg by mouth in the morning. furosemide (Lasix) 40 mg tablet Take 40 mg by mouth in the morning. insulin glargine (Lantus) 100 unit/mL injection Inject under the skin. letrozole (Femara) 2.5 mg chemo tablet Take 2.5 mg by mouth in the morning losartan (Cozaar) 25 mg tablet Take 25 mg by mouth 1 (one) time each day at the same time. metFORMIN (Glucophage) 1,000 mg tablet Take 500 mg by mouth. pregabalin (Lyrica) 75 mg capsule Take 150 mg by mouth twice a day. rOPINIRole (Requip) 3 mg tablet Take 3 mg by mouth in the morning. buPROPion SR (Wellbutrin SR) 150 mg 12 hr tablet Take 1 tablet (150 mg) by mouth in the morning and at bedtime. Do not crush, chew, or split. 180 tablet 3 hydroCHLOROthiazide (HYDRODiuril) 25 mg tablet Take 25 mg by mouth in the morning. nicotine (Nicoderm CQ) 7 mg/[address] 1 patch on the skin 1 (one) time each day at the same time. 90 patch 3 [DISCONTINUED] alogliptin-metformin 12.5-1,000 mg tablet Take 12.5 mg by mouth in the morning. [DISCONTINUED] carvedilol (Coreg) 3.125 mg tablet Take 3.125 mg by mouth. [DISCONTINUED] FreeStyle Jose 2 [facility] See administration instructions. [DISCONTINUED] FreeStyle Jose 2 Sensor kit APPLY TO UPPER ARM EVERY 14 DAYS [DISCONTINUED] lidocaine-prilocaine (Emla) 2.5-2.5 % cream Apply 1 application. topically if needed each day. [DISCONTINUED] pyridoxine (B-6) 50 mg tablet TAKE 1 TABLET (50 MG TOTAL) BY MOUTH IN THE MORNING No current facility-administered medications on file prior to visit. Physical Exam: Constitutional: Appearance: Normal appearance. Without apparent distress, obese HENT: Head: Normocephalic and atraumatic. Nose: Nose normal. Mouth/Throat: Mouth: Mucous membranes are moist. Eyes: Extraocular Movements: Extraocular movements intact. Conjunctiva/sclera: Conjunctivae normal. Neck: Vascular: No JVD. Cardiovascular: Rate and Rhythm: Normal rate and regular rhythm. Pulses: Dorsalis pedis pulses are 3 on the right side and 3on the left side. Posterior tibial pulses are 3 on the right side and 3 on the left side. Heart sounds: Normal heart sounds, S1 normal and S2 normal. Pulmonary: Effort: Pulmonary effort is normal. Breath sounds: Normal breath sounds. Abdominal: General: Bowel sounds are normal. Palpations: Abdomen is soft. Musculoskeletal: General: Normal range of motion. Cervical back: Normal range of motion. Right lower le+ pitting edema. Left lower le+ pitting edema. Skin: General: Skin is warm and dry. Capillary Refill: Capillary refill takes less than 2 seconds. Neurological: General: No focal deficit present. Mental Status: She is alert and oriented to person, place, and time. Psychiatric: Mood and Affect: Mood normal. Behavior: Behavior normal. Thought Content: Thought content normal. Judgment: Judgment normal. Labs: 07/01/23 CBC normal, liver function normal, renal function slightly elevated Component Ref Range & Units 10 d ago White Blood Cells 4.0 - 11.0 X10E9/L 7.2 RBC count 3.80 - 5.20 X10E12/L 4.08 Hemoglobin 11.7 - 15.5 g/dL 11.8 Hematocrit 35 - 47 % 36.2 MCV 80 - 100 fL 89 MCH 27 - 34 pg 28.9 MCHC 32 - 36 g/dL 32.7 RDW 11.5 - 15.0 % 16.9 High Platelets 150 - 450 X10E9/L 151 Component Ref Range & Units 10 d ago BNP <100.0 pg/mL 201 High Ref Range & Units 10 d ago Sodium (more content not included)... [facility] 07-11-2023 Note Patient here c/o hyp otension. Says she stopped hydrochlorothiazide and carvedilol. Has been better since stopping those medications but was running around 80's/55. She was also getting a little lightheaded, but is feeling better. Patient has quit smoking completely. Has been using O2 around the clock at home. Noticed a slight increased in LE edema since stopping hydrochlorothiazide. Used to take lasix PRN but now takes it daily. [facility]. Review of Systems Cardiovascular: Positive for dyspnea on exertion and leg swelling. Respiratory: Positive for shortness of breath. Musculoskeletal: Positive for muscle weakness. Neurological: Positive for light-headedness (improving) and weakness. All other systems reviewed and are negative. [facility] 07-10-2023 Miscellaneous Notes Please fax patients : (EMG NCV (Order [id number]) To: [facility] Fax #:[phone] Phone #:[phone] Who is calling: Lorraine Faxed included information to [phone] on 07/11/23 at 17:44 - demographics - EMG NCV (Order # [id number]) on 07/06/2023 - 07/06/23 OV notes from Kilo Hines documented in this encounter [facility] 07-10-2023 Telephone encounter Note Please fax patients : (EMG NCV (Order [id number]) To: [facility] Fax #:[phone] Phone #:[phone] [facility] is [facility] 07-10-2023 Telephone encounter Note Faxed included information to [phone] on 07/11/23 at 17:44 - demographics - EMG NCV (Order # [id number]) on 07/06/2023 - 07/06/23 OV notes from Kilo Hines [facility] 07-06-2023 Miscellaneous Notes Workqueue referral for Botox injections New patient referral received. 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 PLEASE REVIEW PLAN OVER THE PHONE AND ADVISE PATIENT TO BRING UPDATED INSURANCE INFORMATION TO THEIR NEW PATIENT APPOINTMENT Please see above referral We can add this patient on for a follow-up with mo on July 31, at 12:00 p.m.. After that, I can send Botox authorization instructions. Per the provider add this patient on for a follow-up with me on July 31, at 12:00 p.m.. Patient called and accepted the appointment date and time. documented in this encounter [facility] 07-06-2023 Telephone encounter Note Workqueue referral for Botox injections New patient referral received. 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 PLEASE REVIEW PLAN OVER THE PHONE AND ADVISE PATIENT TO BRING UPDATED INSURANCE INFORMATION TO THEIR NEW PATIENT APPOINTMENT [facility] 07-06-2023 Telephone encounter Note Please see above referral [facility] 07-06-2023 Telephone encounter Note We can add this patient on for a follow-up with me on July 31, at 12:00 p.m.. After that, I can send Botox authorization instructions. [employer] Work Phone: 07-06-2023 Telephone encounter Note Per the provider add this patient on for a follow-up with me on July 31, at 12:00 p.m.. Patient called and accepted the appointment date and time. [facility] 07-06-2023 History of Present illness [facility] 07[facility]05/2023 8:49 AM Patient info: Krista yL is a 82 y.o. 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 Last seen in the office on 07/18/[address] Margarita Villanueva is present in the office today by herself. Interval Hx: EMG/NCV study ordered last office visit (07/18/22) was not completed. 08/08/22 Labs: Copper level, Folate, TSH, ESR, CRP, and Serum Protein Electrophoresis were normal; Lyme was (-) Vitamin B12 was low at 123 (range: 180-914) and Vitamin B6 was low at 18.7 (range: 20.0-125.0) HgbA1c was 7.4% in November (2022) Krista complains of numbness/tingling into the right hand, specifically through digits 4 and 5. She has subsequently been dropping some objects out of her right hand. Onset was a couple months ago. There has essentially been no change in the numbness/tingling into the lower extremities/feet. She has not been taking extra Vitamin B12 or Vitamin B6 supplementation for the last 3-4 months. She currently takes Pregabalin 150 mg BID, per her PCP. There has been no change in gait or any recent falls. During today's office visit, it is easy to see a a fairly significant amount of torticollis. When speaking with her about it, she expresses interest in improving it, as it causes pain and discomfort. Previous Studies: - as per the HPI Prior Hx: Initial Consultation 07/18/22 Patient reports gradual onset of numbness and tingling affecting the toes, that started roughly 5 years ago. The symptoms have been gradually progressive, and seem to be slowly creeping up the lower extremities. The symptoms were initially intermittent, however over the last 2 years the numbness and tingling has become persistent. Occasionally she has sharp pain affecting the toes. The patient reports having poor balance over the last year, however has not been having falls. Seems to struggle with balance in dark environments. Diagnosed with DM-II > 10 years ago. DM-II has not well controlled , especially over the last year. Last HbA1c was 8%, a few months ago. Reports HPL and HTN have been relatively well controlled. About 1 moth ago, starting having intermittent tingling affecting the ulnar aspect of the hand and the 5th, 4th and 3rd digits. Denies any weakness or incoordination affecting the upper or lower extremities. Reports having mild intermittent cervicalgia over the last couple of years. Denies radiation of neck pain down the upper extremities. Denies muscle spasms are numbness, tingling affecting the neck or shoulder regions. Over the last 1-2 years, has noticed that her head and neck seems to be slumped over her chest. Denies any involuntary contractions, twitching or muscle spasms affecting the anterior or posterior neck. Denies any focal motor weakness, visual impairment, headaches, nausea, vomiting, involuntary movements, seizure-like activity, loss of consciousness, chest pain, shortness of breath, fever, rash, constitutional symptoms, abdominal complaints, incontinence, diarrhea, constipation. Patient does have past medical history of heavy smoking(> 40 pack-year history), status post left lumpectomy in 2002. Were recently diagnosed with right-sided breast cancer s/p right mastectomy and chemotherapy, followed by adjuvant radiotherapy to the right breast and axilla in March 2022. Patient currently ambulating without any assistive devices. Reports being independent with ADLs and IADLs. The patient is 81-year-old right-handed female with past medical history of suboptimally controlled diabetes mellitus type 2, hypertension, hyperlipidemia, obesity, CKD 3A, recent history of right breast cancer status post mastectomy/chemotherapy/radiother apy 04/18, s/p left breast lumpectomy 2002, who presents to the neurology clinic today for evaluation of numbness, paresthesias and pain affecting the distal lower and upper extremities. Symptoms seem to have started roughly 5 years ago (2017) in the distal lower extremities, and were intermittent at the start. However with the passage of time the numbness and tingling have become persistent in the lower extremities, and over the last few months the patient has been having intermittent numbness and tingling affecting the distal upper extremities as well. Last hemoglobin A1c 8%. Clinical examination shows sensory loss to light touch, cold touch, vibration below the ankles bilaterally, symmetric. Slight weakness of right dorsiflexion is seen. Mild anterocollis is also seen, without weakness of neck extensors of flexors. No other motor or coordination deficits are appreciated in the extremities. 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 Past Medical Hx: See EMR Surgical Hx: See EMR Allergies: See EMR Review of Systems: Constitutional: Negative for fever, chills, sweats, or unintentional weight loss Eyes: Negative HENT: Negative Cardiovascular: Negative for chest pain and palpitations Respiratory: Negative for cough and shortness of breath Gastrointestinal: Negative for nausea, vomiting, abdominal pain and diarrhea Genitourinary: Negative for dysuria, urgency, frequency, or hematuria Musculoskeletal: - as per the HPI Skin: Negative for skin rash Neurological: - as noted in the HPI Psychiatric/Behavioral: Negative Endocrine: - DM, hypothyroidism Hem/Onc: Negative Allergy/immunology: Negative Vitals: BP: 128/74 HR: 68 Weight: 92.1 kg Physical Exam: General: well groomed, pleasant, appears stated age Neurological Exam: The patient is awake, alert, and attentive Speech and language are normal Normal affect, with normal orientation and seemingly normal cognition EOMI, PERRL, No gross visual field deficits Face is symmetric, Tongue protrudes midline Palate rises symmetrically with uvula midline Shoulder shrug is strong bilaterally Nose to finger testing is without dysmetria Upper Extremity Drift is (-) Fine motor skills are approximately equal in each hand Tremor: (-) Sensation is decreased in the extremities in glove-stocking distribution DTR's are trace throughout Oden's sign (-) bilaterally Strength throughout the Upper Extremities is 5/5, except being 4+/5 lumbricals digits 4 and 5 of right hand Strength throughout the Lower Extremities is 5/5 Muscle Tone throughout the extremities is normal Romberg is (); not tested Gait is casual with normal base, fairly normal stride and mildly reduced bilateral arm swing ASSESSMENT: Krista is an 82 year old right hand dominant female with a hx of DM, hypothyroidism, HTN, CKD, breast CA, hyperlipidemia, and RLS who has a peripheral polyneuropathy, as well as right ulnar neuropathy and torticollis. Labs last year showed a Vitamin B6 and Vitamin B12 deficiency. Will repeat those labs at this time, as well as Vitamin B2. PLAN: Labs: Vitamin B2, Vitamin B6, Vitamin B12 Will order an EMG/NCV study; all 4 extremities Will refer to PT for the ulnar neuropathy at the right elbow, as well as the torticollis Will refer her to Dr. Rosales at the [facility] for potential botox injections regarding the torticollis Follow up in the office in 4 months Electronically Signed by: Kilo Hines PA-C 07/11/23 1059 documented in this encounter [facility] 07-04-2023 History of Present illness Narrative Associated Problem(s): Chronic diastolic HF (heart failure) (CMS/HCC) Recent hospital admission for it, new diagnosis. Required IV diuresis for volume overload resulting in respiratory failure with hypoxia. She has not been using Lasix since ED visit on the . Asked patient to resume it but at a lower dose. Educated on dietary restrictions. Follow up appointment with Cardiology next week. 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 On ASA, BB, Statin. Denies CP, SOB, palpitations. Ventricular bigeminy noted on director of cardiac rehabilitation while she was in ED - has an appointment with Cardiology next week. Associated Problem(s): Ventricular bigeminy seen on director of cardiac rehabilitation Noted on recent ED visit. Moderate 2 vessel CAD on C in 2019. On ASA, Statin. Did not require PCI or CABG. Has been doing well from cardiac point of view - has an appointment with [facility] cardiology next week. Denies CP, SOB, palpitations. Associated Problem(s): Stage 3a chronic kidney disease (HCC) (CMS/HCC) CKD 3 - due to HTN, T2 DM. Cr at baseline. Associated Problem(s): Benign essential HTN (CMS/HCC) She was taken off of Coreg, Lasix and hydrochlorothiazide on recent ED visit. She ended up using her Coreg earlier today. Her blood pressure is usually well controlled and she was doing well on Coreg, Losartan, Lasix and hydrochlorothiazide. Will discontinue hydrochlorothiazide, resume Lasix at 20 mg as LE edema noted. Decrease Carvedilol to 6.25 q12. Patient encouraged to continue with home BP monitoring and call office if he experiences orthostatic symptoms or persistently elevated BP. BMP in one week. Associated Problem(s): Type 2 diabetes mellitus with diabetic polyneuropathy (HCC) (CMS/HCC) On Lyrica for Neuropathy. C/w same. Uses Metformin, Allogliptin, Lantus 35 unts Most recent labs: hemoglobin A1C 7.4 12/17 Average FSBS range from BGs consistently in an acceptable range No episode of hypoglycemia No medication adverse effects reported by the patient. [facility] Subjective Patient ID: Krista Ly is a 82 y.o. female who presents for Hospital Follow-up. Patient was sent to ED last appointment for hypoxic respiratory failure and was admitted at [facility] for acute on chronic diastolic HF. She was admitted on and discharged on . She then went back to ED for hypotension and bradycardia noted on home BP monitor but did not have any associated symptoms. She was noted to have ventricular bigemeny on tele during ED visit. It was concluded by ED provider that her home monitor might have given her a false reading. Patient was asked to stop using Carvedilol, Lasix and hydrochlorothiazide. She ended up using her Coreg earlier today because her blood pressure was above 140. Current Outpatient Medications on File Prior to Visit Medication Sig Dispense Refill alogliptin (Nesina) 12.5 MG tablet Take 12.5 mg by mouth in the morning. aspirin 81 MG EC tablet Take 81 mg by mouth in the morning. atorvastatin (Lipitor) 40 MG tablet Take 40 mg by mouth in the morning. insulin glargine (Lantus) 100 UNIT/ML injection Inject 35 Units under the skin 1 (one) time each day letrozole (Femara) 2.5 MG chemo tablet Take 2.5 mg by mouth Daily. Take with or without food. levothyroxine (Synthroid, Levoxyl) 50 MCG tablet Take 50 mcg by mouth in the morning. Take before meals. losartan (Cozaar) 25 MG tablet Take 25 mg by mouth in the morning. metFORMIN (Glucophage) 1000 MG tablet Take 500 mg by mouth in the morning and 500 mg in the evening. Take with meals. nitroglycerin (Nitrostat) 0.[address] 0.4 mg under the tongue every 5 (five) minutes if needed for chest pain rOPINIRole (Requip) 5 MG tablet Take 1 tablet (5 mg) by mouth in the morning and 1 tablet (5 mg) in the evening and 1 tablet (5 mg) before bedtime. 270 tablet 0 [DISCONTINUED] carvedilol (Coreg) 12.5 MG tablet Take 1 tablet (12.5 mg) by mouth in the morning and 1 tablet (12.5 mg) in the evening. Take with meals. 180 tablet 1 [DISCONTINUED] furosemide (Lasix) 40 MG tablet TAKE 1 (ONE) TABLET BY MOUTH DAILY NEEDED FOR LEG EDEMA 90 tablet 0 [DISCONTINUED] pregabalin (Lyrica) 150 MG capsule Take 1 capsule (150 mg) by mouth in the morning and 1 capsule (150 mg) before bedtime. 60 capsule 0 Fluad Quadrivalent syringe Inject 0.5 mL into the shoulder, thigh, or buttocks 1 (one) time glucose blood (Accu-Chek Yesenia Plus) test strip 1 each by Other route in the morning and 1 each in the evening and 1 each before bedtime. Use as instructed. [DISCONTINUED] hydroCHLOROthiazide (HYDRODiuril) 25 MG tablet TAKE 1 TABLET BY MOUTH EVERY DAY 90 tablet 0 No current facility-administered medications on file prior to visit. Allergies Allergen Reactions Lisinopril Review of System All systems negative except as mentioned in HPI. Visit Vitals BP 100/60 (BP Location: Left arm, Patient Position: Sitting, BP Cuff Size: Large adult) Pulse 71 Temp 97.2 F (Tympanic) Ht 5' 2 Wt 205 lb SpO2 93% BMI 37.49 kg/m Smoking Status Former BSA 2.02 m @LABRESULTS@ No images are attached to the encounter. Objective Doing well. No active complaints to offer. Denies SOB, CP, palpitations. Physical Exam General: Comfortable, NAD, Obese HEENT: AT/NC, torticollis. Resp: Normal RR, CTA b/l CVS: Normal HR, No mumur noted. Neuro: AAOX 3, moving all extremities. Psych: Calm, co operative, no HI/SI. Ext: +1 edema LE bilaterally. Assessment/Plan Problem List Items Addressed This Visit Benign essential HTN (CMS/HCC) She was taken off of Coreg, Lasix and hydrochlorothiazide on recent ED visit. She ended up using her Coreg earlier today. Her blood pressure is usually well controlled and she was doing well on Coreg, Losartan, Lasix and hydrochlorothiazide. Will discontinue hydrochlorothiazide, resume Lasix at 20 mg as LE edema noted. Decrease Carvedilol to 6.25 q12. Patient encouraged to continue with home BP monitoring and call office if he experiences orthostatic symptoms or persistently elevated BP. BMP in one week. Relevant Medications carvedilol (Coreg) 6.25 MG tablet Coronary artery disease 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 ([facility]) Asymptomatic, moderate 2 vessel CAD on [facility] noted in 2019. On ASA, BB, Statin. Denies CP, SOB, palpitations. Ventricular bigeminy noted on director of cardiac rehabilitation while she was in ED - has an appointment with Cardiology next week. Type 2 diabetes mellitus with diabetic polyneuropathy (HCC) ([facility]) - Primary On Lyrica for Neuropathy. C/w same. Uses Metformin, Allogliptin, Lantus 35 unts Most recent labs: hemoglobin A1C 7.4 12/17 Average FSBS range from BGs consistently in an acceptable range No episode of hypoglycemia No medication adverse effects reported by the patient. [facility] DM Relevant Medications pregabalin (Lyrica) 150 MG capsule Stage 3a chronic kidney disease (HCC) ([facility]) CKD 3 - due to HTN, T2 DM. Cr at baseline. Relevant Medications furosemide (Lasix) 20 MG tablet Other Relevant Orders Basic metabolic panel Chronic diastolic HF (heart failure) ([facility]) Recent hospital admission for it, new diagnosis. Required IV diuresis for volume overload resulting in respiratory failure with hypoxia. She has not been using Lasix since ED visit on the . Asked patient to resume it but at a lower dose. Educated on dietary restrictions. Follow up appointment with Cardiology next week. Ventricular bigeminy seen on director of cardiac rehabilitation Noted on recent ED visit. Moderate 2 vessel CAD on [facility] in 2019. On ASA, Statin. Did not require PCI or CABG. Has been doing well from cardiac point of view - has an appointment with [facility] cardiology next week. Denies CP, SOB, palpitations. Other Visit Diagnoses Type 2 diabetes mellitus with diabetic neuropathy, unspecified ([facility]) Relevant Medications pregabalin (Lyrica) 150 MG capsule Follow up in about 4 weeks (around 08/01/2023). documented in this encounter [facility] 07-01-2023 Note XR CHEST 1 VW Procedure: Chest x-ray performed Number of views:1 History:Bradycardia Comparison:06/21/2023 Findings: The heart and lungs show no acute findings, and the mediastinum and alondra are grossly negative . Tubes and lines are stable. Impression: 1. No acute change. Finalized by Thien Ulrich MD on 07/01/2023 3:[address] [facility] 06-20-2023 Miscellaneous Notes Patient's appointment needs to be rescheduled at this time due to provider out of clinic. Called and left message Date: 06/22/23 Provider: Dr Avila Rescheduling Instructions:next available in clinic Patient is rescheduled 06/22/23 @3p with Kilo Hines documented in this encounter [facility] 06-20-2023 Telephone encounter Note Patient's appointment needs to be rescheduled at this time due to provider out of clinic. Called and left message Date: 06/22/23 Provider: Dr Avila Rescheduling Instructions:next available in clinic [facility] 06-20-2023 Telephone encounter Note Patient is rescheduled 06/22/23 @3p with Kilo Hines [facility] Evaluation note Diagnosis Type 2 diabetes mellitus with diabetic polyneuropathy, with long-term current use of insulin (CMS/HCC)- Primary Benign essential HTN (CMS/HCC) Stage 3a chronic kidney disease (HCC) (CMS/HCC) Type 2 diabetes mellitus with diabetic neuropathy, unspecified (CMS/HCC) Ventricular bigeminy seen on director of cardiac rehabilitation Coronary artery disease 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 ([facility]/HCC) Chronic diastolic HF (heart failure) ([facility]/HCC) Chronic diastolic heart failure [facility] Diagnosis Stage 3a chronic kidney disease (HCC) (CMS/HCC) [facility] Diagnosis Benign essential HTN (CMS/HCC) [facility] Diagnosis Diabetic peripheral neuropathy ([facility]CC)- Primary Type II or unspecified type diabetes mellitus with neurological manifestations, not stated as uncontrolled Vitamin B12 deficiency Other B-complex deficiencies Vitamin B6 deficiency Ulnar neuropathy at elbow of right upper extremity Torticollis Torticollis, unspecified Ulnar neuropathy at elbow of right upper extremity Torticollis Torticollis, unspecified [facility] Diagnosis 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 Myofascial pain Unspecified myalgia and myositis Essential tremor [facility] Diagnosis Metastatic cancer to axillary lymph nodes ([facility])- Primary [facility] Diagnosis Onset Date Resolution Status Acute on chronic hypoxic respiratory failure acute Bigeminy acute CHF (congestive heart failure) [facility] Work Phone: InstructionsNot on filedocumented in this encounter [facility] filedocument[facility] in [facility] filedocumented in [facility] filedocumented in [facility] filedocumented in [facility] on filedocumented in [facility] (n[facility]ative)* Consultation (Routine) - Pending Review Specialty Diagnoses / Procedures Referred By Jaye hunter Referred To Contact Neurology Diagnoses Torticollis Kilo Hines PA-C [address] [place] [address], [address] [place] [address] Blanca Rosales MD [address] [place] [address], [address], [address] [place] [address] Referral ID Status Reason Start Date Expiration Date Visits Requested Visits Authorized [id number] Pending Review Specialty Services Required 07/06/2023 07/05/2024 1 1 Scheduling Instructions Botox due to torticollis * Rehabilitation - Outpatient (Routine) - Authorized Specialty Diagnoses / Procedures Referred By Jaye hunter Referred To Contact Rehabilitation Diagnoses Ulnar neuropathy at elbow of right upper extremity Torticollis Kilo Hines PA-C [address] [facility] [place] [address] [facility] [address] [place] [phone] Referral ID Status Reason Start Date Expiration Date Visits Requested Visits Authorized [id number] Authorized Specialty Services Required 07/06/2023 07/05/2024 12 12 * Neurology (Routine) - Pending Review Specialty Diagnoses / Procedures Referred By Jaye hunter Referred To Contact Diagnoses Diabetic peripheral neuropathy (CMS-HCC) Ulnar neuropathy at elbow of right upper extremity Procedures EMG NCV Kilo Hines PA-C [address], [address] [place] [address] Referral ID Status Reason Start Date Expiration Date V isits Requested Visits Authorized [id number] Pending Review 07/06/2023 07/05/2024 1 1 [facility] Summary Purpose Family History No Family History Records Found Relationship Condition Age at Onset Recorded Date/T lupe brother Hypertension Unknown father Heart disease Unknown Family history of lung cancer Unknown Hypertension Unknown Unknown Malignant neoplasm Unknown grandparent Diabetes mellitus Unknown mother Hypertension Unknown sister Hypertension Unknown Advance Directives No Advanced Directives Records FoundLatest Code Status on File Code Status Date Activated Date Inactivated Comments Full Code 03/21/2023 2:25 PM 03/22/2023 4:09 PM Code Status History Code Status Date Activated Date Inactivated Comments Full Code 08/16/2018 9:09 PM 08/17/2018 2:57 PM Full Code 07/15/2018 11:56 AM 07/15/2018 7:22 PM Latest Code Status on File Code Status Date Activated Date Inactivated Comments Full Code 06/22/2023 9:55 AM 06/25/2023 11:49 PM Code Status History Code Status Date Activated Date Inactivated Comments Full Code 03/21/2023 2:25 PM 03/22/2023 4:09 PM Full Code 08/16/2018 9:09 PM 08/17/2018 2:57 PM Full Code 07/15/2018 11:56 AM 07/15/2018 7:22 PM Latest Code Status on File Code Status Date Activated Date Inactivated Comments Full Code 06/22/2023 9:55 AM 06/25/2023 11:49 PM Code Status History Code Status Date Activated Date Inactivated Comments Full Code 03/21/2023 2:25 PM 03/22/2023 4:09 PM Full Code 08/16/2018 9:09 PM 08/17/2018 2:57 PM Full Code 07/15/2018 11:56 AM 07/15/2018 7:22 PM Advance Directive Response Recorded Date/ Time Advance Directives No March 2:07pm Chief Complaint and Reason for Visit Chief Complaint Diff Breathing Reason for Visit Acute on chronic hyp oxic respiratory failure Bigeminy CHF (congestive heart failure) Additional Source Comments INFORMATION SOURCE (unrecogn ized section and content) DATE CREATED AUTHOR 07/15/2019 [facility] DATE CREATED AUTHOR AUTHOR'S ORGANIZ ATION 04/01/2022 [facility] DATE CREATED AUTHOR AUTHOR'S ORGANIZ ATION 08/02/2023 [facility] DATE CREATED AUTHOR AUTHOR'S ORGANIZ ATION 11/10/2023 [facility] DATE CREATED AUTHOR AUTHOR'S ORGANIZ ATION 11/12/2023 [facility] DATE CREATED AUTHOR AUTHOR'S ORGANIZ ATION 12/17/2023 [facility] DATE CREATED AUTHOR AUTHOR'S ORGANIZ ATION 12/30/2023 [facility] DATE CREATED AUTHOR AUTHOR'S ORGANIZ ATION 01/10/2024 [facility] DATE CREATED AUTHOR AUTHOR'S ORGANIZ ATION 01/15/2024 [facility] EPIC Reason for Visit (unrecogniz ed section and content) Reason Onset Date Comments reschd 06/22/23 appt 06/20/2023 Reason Comments Hospital Follow-up Reason Onset Date Comments BOTOX INJECTIONS 07/06/2023 Reason Comments New Patient Patient presents for peripheral polyneuropathy. Patient is having right hand numbness, legs and feet are numb. Reason Onset Date Comments emg order fax 07/10/2023 Reason Comments Med Refill Reason Comments Port/VAD Care Port flush Reason Onset Date Comments need office notes 08/15/2023 Care Teams (unrecognized sec tion and content) Director Of Financial Planning Relationship Specialty Start Date End Date Shaikh Weiss MD [address] [place] [address] PCP - General Internal Medicine 11/04/21 Director Of Financial Planning Relationship Specialty Start Date End Date Shaikh Weiss MD PCP - General Internal Medicine 12/08/22 Shaikh Weiss MD [address] [place] [id number] PCP - Devoted 02/25/23 Director Of Financial Planning Relationship Specialty Start Date End Date Shaikh Weiss MD PCP - General Internal Medicine 12/08/22 Shaikh Weiss MD [address] [place] [id number] PCP - Devoted 02/25/23 Director Of Financial Planning Relationship Specialty Start Date End Date Shaikh Weiss MD [address] [place] [address] PCP - General Internal Medicine 11/04/21 Director Of Financial Planning Relationship Specialty Start Date End Date Shaikh Weiss MD PCP - General Internal Medicine 12/08/22 Shaikh Weiss MD [address] [place] [address] PCP - Devoted 02/25/23 Director Of Financial Planning Relationship Specialty Start Date End Date Shaikh Weiss MD [address] [place] [address] PCP - General Internal Medicine 11/04/21 Director Of Financial Planning Relationship Specialty Start Date End Date Shaikh Weiss MD [address] [place] [address] PCP - General Internal Medicine 11/04/21 Director Of Financial Planning Relationship Specialty Start Date End Date Shaikh Weiss MD [address] [place] [address] PCP - General Internal Medicine 11/04/21 Director Of Financial Planning Relationship Specialty Start Date End Date Shaikh Weiss MD [address] [place] [address] PCP - General Internal Medicine 11/04/21 Director Of Financial Planning Relationship Specialty Start Date End Date Shaikh Weiss MD [address] [place] [address] PCP - General Internal Medicine 11/04/21 Director Of Financial Planning Relationship Specialty Start Date End Date Shaikh Weiss MD [address] [place] [address] PCP - General Internal Medicine 11/04/21 Team Status: Active Member Role Status Dates Shaikh Isela MD Primary Care Provider Active Team Status: Active Member Role Status Dates Susanne Cannon DO Emergency Provider Active St art: December 26, 2023 Shaikh Isela MD Primary Care Provider Active Start: December 26, 2023 Jose Eduardo Cifuentes DO Admit Provider, Attending Provider Active Start: December 26, 2023 Goals (unrecognized section and content) Goals may be documented in a n alternate section FOR RECORDS PERTAINING TO PATIENTS WHO ARE OR HAVE BEEN ENROLLED IN A CHEMICAL DEPENDENCY/SUBSTANCEABUSE PROGRAM, SOME INFORMATION MAY BE OMITTED. This clinical summary was aggregated from multiple sources. Caution should be exercised in using it in the provision of clinical care. This summary normalizes information from multiple sources, and as a consequence, information in this document may materially change the coding, format and clinical context of patient data. In addition, data may be omitted in some cases. CLINICAL DECISIONS SHOULD BE BASED ON THE PRIMARY CLINICAL RECORDS. [facility]. provides no warranty or guarantee of the accuracy or completeness of information in this document.
[2024-01-15 10:33] LABS: Anion Gap 12.7; BUN Creatinine Ratio 20.9; Calcium 9.6 mg/dL (8.5-10.1); Carbon Dioxide 33.3 mmol/L (21.0-32.0); Chloride 102 mmol/L (98-107); Estimated GFR (African America 41 (>=60); Estimated GFR (Non-African Ame 34 (>=60); Glucose 129 mg/dL (74-106); Sodium 144 mmol/L (136-145)
== END 2024-01-15 09:46 | disposition home or self-care (01) ==
LOC: LAB 09:48
PROVIDERS: Visit Provider Nurse Practitioner Family
DX: I50.32 Chronic diastolic (congestive) heart failure (principal)
CPT/HCPCS: 36415; 80048

== ENCOUNTER 2024-05-05 10:11 | Outpatient (OUT) | payer OTHER, SELFPAY ==
--- NOTE | 2024-05-05 10:15 | XR_ITS ---
The [address] [address] Patient Name: KRISTA LY MRN: [id number] date: 1940 Sex: F Assigned Patient Location: LAB Current Patient Location: Accession/Order Number: [id number] Exam Date: 05/05/2024 10:20 Report Date: 05/06/2024 09:54 At the request of: FABIAN HODGE Procedure: XR chest w decubitus EXAMINATION: XR chest w decubitus HISTORY: Pleural Effusion COMPARISON: XR chest 12/29/2023 FINDINGS: LUNGS: Mild atelectasis versus infiltrates within right lung base. Passive atelectasis is suspected. VASCULATURE: No increased pulmonary vasculature. PLEURA: Large right pleural effusion which shows some change in position during decubitus views, but appears to be mostly loculated. CARDIAC: Cardiomegaly. MEDIASTINUM: No visible mass or adenopathy. BONES: No fracture or visible bone lesion. OTHER: Negative. XR/XR chest w decubitus IMPRESSION: 1. Large right pleural effusion suspected to be loculated. 2. Mild right basilar passive atelectasis versus infiltrates. 3. Stable cardiomegaly. Electronically authenticated by: ALDO ALBRIGHT Date: 05/06/2024 09:54
== END 2024-05-05 10:12 | disposition home or self-care (01) ==
LOC: LAB 10:11
PROVIDERS: Visit Provider Internal Medicine
DX: J90 Pleural effusion, not elsewhere classified (principal); I51.7 Cardiomegaly
CPT/HCPCS: 71048

== ENCOUNTER 2024-08-06 08:38 | Outpatient (OUT) | payer OTHER, SELFPAY ==
--- NOTE | 2024-08-06 09:11 | XR_ITS ---
The [address] [address] Patient Name: KRISTA LY MRN: [id number] date: 1940 Sex: F Assigned Patient Location: [facility] Current Patient Location: [facility] Accession/Order Number: [id number] Exam Date: 08/06/2024 09:46 Report Date: 08/06/2024 09:55 At the request of: FABIAN HODGE DO Procedure: XR chest w decubitus AP ERECT, LATERAL AND BILATERAL DECUBITUS CHEST - 4 images COMPARISON: 05/04/[address] 12/27/2023 CLINICAL DATA: Chronic shortness of breath. Follow-up pleural effusion. AP erect, lateral and both oblique views were obtained. The heart is slightly prominent. The hilar and mediastinal contours are similar. A small partially layering right pleural effusion is present, with similar volume to the comparison. Underlying basilar atelectasis is present. The left lung is clear. No pneumothorax is seen. There is endplate spurring at the spine. There are degenerative changes at the shoulders with suspected chronic rotator cuff disease. XR/XR chest w decubitus IMPRESSION: MILD CARDIOMEGALY. SIMILAR RIGHT BASILAR PLEURAL-PARENCHYMAL CHANGE. Impression dictated by: Nahomy Mcfadden M.D.08/06/2024 9:55 AM Dictation Location: [place] [address] Electronically authenticated by: [id number] Y Date: 08/06/2024 09:55
== END 2024-08-06 08:39 | disposition home or self-care (01) ==
LOC: RAD 08:40
PROVIDERS: Visit Provider Internal Medicine
DX: J90 Pleural effusion, not elsewhere classified (principal); I51.7 Cardiomegaly
CPT/HCPCS: 71048

== ENCOUNTER 2024-08-18 12:52 | Outpatient (OUT) | payer OTHER, SELFPAY ==
--- NOTE | 2024-08-19 18:14 | W.PM.PROCNOT ---
Procedure: 6 Minute Walk Date: 08/18/2024 Indication: COPD MMRC: 3 Resting data: -BP: 106/66 -HR: 69 -SpO2: 84% -FiO2: Room air -[place]: 0 Application of supplemental O2 @ rest: -Patient was placed on her POC at 3L/min flow and recovered to 91% Description: 6 minute walk was initiated according to standard protocol. It was started on 3L/min O2 via POC. Patient ambulated for a total of 6 minutes with the lowest SpO2 at 91%, the highest heart rate at 94, and highest [place] 4. Recovery data: -BP: 125/77 -HR: 70 -SpO2: 95% -FiO2: 3L/min O2 via POC -Checo: 2 Ambulation: Patient ambulated a total of 91.4m which is 44.6% predicted. There were no stops reported. Impressions: Resting hypoxia recovered with supplemental O2 @ 3L/min via POC. No further desaturations encountered during ambulation while on this flow. Recommendations: 3L/min O2 @ rest and with activity/ambulation. Clinical correlation required.
== END 2024-08-18 12:53 | disposition home or self-care (01) ==
LOC: CARD 12:52
PROVIDERS: Visit Provider Internal Medicine
DX: J44.9 Chronic obstructive pulmonary disease, unspecified (principal); J96.11 Chronic respiratory failure with hypoxia
CPT/HCPCS: 94618

== ENCOUNTER 2025-02-06 12:28 | Outpatient (OUT) | payer MEDICARE, SELFPAY ==
--- OUTSIDE RECORDS SUMMARY | 2025-02-06 12:41 | XMS_ITS | CCD ---
Author Organization [facility] [place] [facility] Care Team Providers Care Med Care Manager Name Role Phone ELTAHAWY, EHAB A Admitting [...] FAWWAD, MARTINEZ H Consulting Unavailable [facility] , [facility] Primary Care Provider Isela ACOSTA, Martinez Unavailable BO RINCON Attending Un[facility] Referring [facility]available [facility] Primary Care Unavailable DO Susanne Cannon Emergency Provider MD Isela [facility] Primary Care Provider DO Wilberto Cifuentes Admit Provider [phone] DO Wilberto Cifuentes Attending Provider Shaik Weiss MDh Unavailable George Hayden MD Primary Care Provider Rosalie HUGO, Jyoti Unavailable Blank Johnson LPN Unavailable Unavailable Eebn Selby Consulting Unavaila ble Wilberto Cifuentes Admitting Unavailable [facility], [facility] Primary Care Unavailable Trent Duarte Attending Unavailabl Tanna Escobar MA Unavailable Unavailable Isela ACOSTA, Unavailable Matthias CALVOMohsen Unavailable Unavailable Isela ACOSTA, [facility] Primary Care Provider George Hayden MD Unavailable Isela ACOSTA, [facility] Primary Care Provider Isela ACOSTA, [facility] Primary Care Provider Unavailable Primary Care Provider Unavailabl e Isela ACOSTA, [facility] Primary Care Provider Rosalie MISSION WORKER, Jyoti Unavailable Isela ACOSTA, [facility] Primary Care Provider Tanna Rodríguez MA Unavailable Fransico ACOSTA, George Primary Care Provider KAYY HINES Attending Unavailable [facility] Referring Unavailable [facility] Primary Care Unavailable KAYY HINES Attending Unavailable [facility] Referring Unavailable [facility] Primary Care Unavailable FAWWAD, MARTINEZ Referring Unavailable [facility], [facility] Primary Care Unavailable FAWWAD, MARTINEZ Referring Unavailable [facility] Primary Care Unavailable FAWWAD, MARTINEZ Referring Unavailable [facility] Primary Care Unavailable FAWWAD, MARTINEZ Referring Unavailable [facility] Primary Care Unavailable BLANCA ROSALES Referring Unavailable [facility], [facility] Primary Care Unavailable FAWWAD, MARTINEZ Referring Unavailable [facility], [facility] Primary Care Unavailable FAWWAD, MARTINEZ Referring Unavailable [facility], [facility] Primary Care Unavailable FAWWAD, MARTINEZ Referring Unavailable [facility], [facility] Primary Care Unavailable FRANCISCA GIBBS Admitting Unavailable FRANCISCA GIBBS Attending Unavailable MAURO TONEY Referring Unavailable GEORGE HAYDEN Primary Care Unavailable [facility] Consulting Unavailable [facility], [facility] Consult[facility] Unavailable MIGUEL GOMEZ Referring Unavailable GEORGE HADYEN Primary Care Unavailable JYOTI WIGGINS Attending Unavailmekhi WIGGINS, JYOTI Referring Unavailmekhi HAYDEN, GEORGE Attending Unavailable FRANSICO, GEORGE Attending Unavailable FRANSICO, GEORGE Attending Unavailable JYOTI WIGGINS Attending Unavailabl e JEREMIAH FINCH Attending Unavailable JYOTI WIGGINS Attending Unavailmekhi e JHOANA PIERRE Attending Unavailable DEAN GUNTER Attending Unavailable [facility], [facility] Referring Unavailable [facility], [facility] Primary Care Unavailable KAYY HINES Attending Unavailable [facility], [facility] Referring Unavailable [facility], [facility] Primary Care Unavailable SEBASTIAN CHAU Attending Unavailable REBECCA HIRSCH Referring Unavailable [facility], [facility] Primary Care Unavailable LYRIC, DEAN N Referring Unavailable [facility], [facility] Primary Care Unavailable DEAN GUNTER N Attending Unavailable LYRIC, DEAN N Referring [facility] Primary Care Unavailable BO RINCON Referring Unavailable [facility], [facility] Primary Care Un[facility] Primary Care Unavailable DANIE CHAVEZ Admitting Unavailable MIGUEL GOMEZ Attending Unavailable GEORGE HAYDEN Referring Unavailable CALVINEREMitchell, GEORGE Primary Care Unavailable PAUL MARTINEZ Attending Unavailable KOKO, PALAK Attending Unavailable KOKO, PALAK Attending Unavailable CARLOS EDUARDO MEYER Attending Unavailable Allergies Allergy Classification Reported Allergen(s) Allergy Type Date of Onset Reaction(s) Facility (6 sources) Amino Acids; Translations: [LISINOPRIL] Drug Allergy 0 [facility] (20 sources) Lisinopril Propensity to adverse reactions 3 [facility] (1 source) Lisinopril Drug Allergy 4 [facility] Rep[facility] (20 sources) Lisinopril Drug Allergy 2 [facility] (1 source) liraglutide; Translations: [LIRAGLUTIDE] Drug Allergy 0 [facility] Rep[facility] Medications Current Medications Medication Drug Class(es) Dates Sig (Normalized) Sig (Original) acetaminophen 325 mg oral tablet (2 sources) Start: 12-06-2024 take 1 tablet by mouth every four hours as needed for fever and pain and headache 650 mg, oral, Every 4 hours PRN, temperature greater than 38 C, mild pain - pain scale 1-3, headaches, Starting on 12/06/24 at 2245, [Warning: Total Acetaminophen not to exceed more than 4 grams (4000 mg) in 24 hours] Start: 06-22-2023 End: 06-25-2023 take 1 tablet by mouth every four hours as needed for headache and pain acetaminophen (TYLENOL) tablet 650 mg [id number] 200 actuat albuterol 0.09 mg/actuat metered dose inhaler (20 sources) beta2-Adrenergic Agonist Start: 12-26-2023 Albut caro Sulfate Active INHALATION December 26, 2023 12:00am doesnt use on a regular basis Start: 12-24-2023 End: 11-05-2024 take 2 puff(s) by inhalation every four hours for wheezing albuterol HFA 90 mcg/act inhaler Indications: SOB (shortness of breath) , Restrictive lung disease due to kyphoscoliosis Inhale 2 puffs every 4 (four) hours if needed for wheezing 8.5 g 3 12/24/2023 11/05/2024 Discontinued albuterol 0.833 mg/ml / ipratropium bromide 0.167 mg/ml inhalation solution (3 sources) Anticholinergic, beta2-Adrenergic Agonist Start: 12-07-2024 3 mL, nebulizat ion, Every 4 hours while awake, First dose (after last reorder) on 12/07/24 at 0000, Implement INPATIENT/ED Bronchodilator Clinical Practice Guidelines? Yes Start: 12-06-2024 End: 12-06-2024 3 mL, nebulization, Once, On 12/06/24 at 2105, For 1 dose, Implement INPATIENT/ED Bronchodilator Clinical Practice Guidelines? Yes alendronic acid 70 mg oral tablet (20 sources) Bisphosphonate Start: 06-02-2024 End: 05-04-2025 alendronate (FOSAMAX) 70 mg tablet Indications: Age-related osteoporosis without current pathological fracture TAKE 1 TABLET BY MOUTH EVERY 7 DAYS FOR IN A.M. WITH WATER ON EMPTY STOMACH, NOTHING ELSE BY MOUTH AND REMAIN UPRIGHT FOR 30MIN 12 tablet 08/27/2024 Start: 06-02-2024 End: 05-04-2025 take 1 tablet by mouth every week alendronate (Fosamax) 70 MG tablet Take 70 mg by mouth once a week 06/02/2024 11/05/2024 Discontinued alogliptin 12.5 mg oral tablet (5 sources) take 1 tablet by mouth in the morning alogliptin (Nesina) 12.5 MG tablet Take 12.5 mg by mouth in the morning. 0 Active aspirin 81 mg delayed release oral tablet (20 sources) Platelet Aggregation Inhibitor, Nonsteroidal Anti-inflammatory Drug Start: take 81 mg by mouth once daily 81 mg, oral, Daily, First dose on Sun12/07/24 at 0930, Do not crush or chew. Start: 12-26-2023 Aspirin (Adult Low Dose Aspirin) 81 mg tablet,delayed release (DR/EC) Active 81 MG PO Daily December 26, 2023 12:00am Start: 06-22-2023 End: 06-25-2023 take 81 mg by mouth once daily 81 mg, oral, Daily, First dose on Sun06/22/23 at 0900, Do not crush or chew. atorvastatin 40 mg oral tablet (20 sources) HMG-CoA Reductase Inhibitor Start: 11-26-2024 take 1 tablet by mouth once daily atorvastatin (Lipitor) 40 MG tablet Indications: Hyperlipidemia, unspecified Take 1 tablet (40 mg) by mouth Daily 100 tablet 1 11/26/2024 Active Start: 11-14-2023 take 1 tablet by oneyda th once daily atorvastatin (Lipitor) 40 MG tablet Indications: Hyperlipidemia, unspecified (CMS/HCC) TAKE 1 TABLET BY MOUTH EVERY DAY 100 tablet 1 11/14/2023 Active Start: 06-22-2023 End: 06-25-2023 take 80 mg by mouth once daily 80 mg, oral, Daily, Fir st dose on Sun06/22/23 at 0900, Look-alike/sound-alike medication - verify indication for use. take 0.5 tablet by m outh in the morning atorvastatin (LIPITOR) 80 mg tablet Take 0.5 tablets (40 mg total) by mouth in the morning. Active take 1 tablet by oneyda th in the morning atorvastatin (LIPITOR) 80 mg tablet Take 1 tablet (80 mg total) by mouth in the morning. Active B Complex Vitamins (Vitamin B Complex) capsule (17 sources) Start: 05-05-2024 take 1 capsule by mouth once daily in the morning B Complex Vitamins (Vitamin B Complex) capsule TAKE 1 CAPSULE BY MOUTH EVERY DAY IN THE MORNING 05/05/2024 Active b complex vitamins capsule (13 sources) Start: 11-02-2024 take 1 capsule by mouth once daily in the morning b complex vitamins capsule Indications: Diabetic peripheral neuropathy (CMS-HCC) , Paresthesias in right hand TAKE 1 CAPSULE BY MOUTH EVERY DAY IN THE MORNING 90 capsule 1 11/02/2024 Start: 11-02-2024 take 1 capsule by mo uth once daily in the morning b complex vitamins capsule Indications: Diabetic peripheral neuropathy (CMS-HCC) , Paresthesias in right hand TAKE 1 CAPSULE BY MOUTH EVERY DAY IN THE MORNING 90 capsule 1 11/02/2024 Active Start: 05-04-2024 End: 11-02-2024 take 1 capsule by mouth once daily in the morning b complex vitamins capsule Indications: Diabetic peripheral neuropathy (CMS-HCC) , Paresthesias in right hand TAKE 1 CAPSULE BY MOUTH EVERY DAY IN THE MORNING 90 capsule 1 05/04/2024 11/02/2024 Discontinued Start: 05-04-2024 take 1 capsule by mo uth once daily in the morning b complex vitamins capsule Indications: Diabetic peripheral neuropathy (CMS-HCC) , Paresthesias in right hand TAKE 1 CAPSULE BY MOUTH EVERY DAY IN THE MORNING 90 capsule 1 05/04/2024 Active 120 actuat budesonide 0.16 mg/actuat / formoterol fumarate 0.0048 mg/actuat / glycopyrrolate 0.009 mg/actuat metered dose inhaler (17 sources) Corticosteroid, beta2-Adrenergic Agonist Start: 05-07-2024 Jjhkcbn-Sofepytlnub-Xnlqbsqd ol (Breztri Aerosphere) 160-9-4.8 MCG/ACT aerosol every 12 (twelve) hours 05/07/2024 Active bumetanide 0.5 mg oral tablet (7 sources) Loop Diuretic Start: 12-29-2023 End: 03-06-2024 take 1 tablet by mouth once daily bumetanide (Bumex) 0.5 MG tablet Take 0.5 mg by mouth Daily Do not start until SundayJanuary 01 Take one tablet daily. If weight goes up by more than 2 pounds may increase to two tablets daily for 3 days. 12/29/2023 03/06/2024 Discontinued (Therapy completed) carvedilol 6.25 mg oral tablet (20 sources) alpha-Adrenergic Terry, beta-Adrenergic Terry Start: 07-04-2023 End: 10-07-2023 take 1 tablet by mouth in the morning carvedilol (Coreg) 6.25 MG tablet Indications: Benign essential HTN (CMS/HCC) Take 1 tablet (6.25 mg) by mouth in the morning and 1 tablet (6.25 mg) in the evening. Take with meals. 180 tablet 0 07/09/2023 10/07/2023 Active Start: 05-10-2023 End: 11-06-2023 take 12.5 mg by mouth once daily 12.5 mg, oral, Daily, First dose on Sun06/22/23 at 0900, Give with meal or snack. Look-alike/sound-alike medication - verify indication for use. take 4 tablets by mo ut in the morning, then take 4 tablets by mouth at bedtime carvedilol (COREG) 3.125 mg tablet Take 4 tablets (12.5 mg total) by mouth in the morning and 4 tablets (12.5 mg total) before bedtime. Active cefdinir 300 mg oral capsule (3 sources) Cephalosporin Antibacterial Start: 01-05-2025 End: 01-15-2025 take 1 capsule by mouth in the morning cefdinir (Omnicef) 300 MG capsule Indications: Urinary tract infection without hematuria, site unspecified Take 1 capsule (300 mg) by mouth in the morning and 1 capsule (300 mg) before bedtime. Do all this for 10 days. 20 capsule 01/05/2025 01/15/2025 Active Continuous Glucose Slitter And Rewinder Machine Operator (Dexcom G7 Slitter And Rewinder Machine Operator) device (15 sources) Start: 12-23-2024 Continuous Glu cose Slitter And Rewinder Machine Operator (Dexcom G7 Slitter And Rewinder Machine Operator) device Indications: Type 2 diabetes mellitus with hyperglycemia, with long-term current use of insulin (HCC) 1 each continuously 1 each 12/23/2024 Active Start: 11-05-2024 End: 12-01-2024 Continuous Glucose Slitter And Rewinder Machine Operator (Dexcom G7 Slitter And Rewinder Machine Operator) device Indications: Type 2 diabetes mellitus with hyperglycemia, with long-term current use of insulin (HCC) 1 each continuously 1 each 11/05/2024 12/01/2024 Discontinued Start: 11-05-2024 Continuous Glu cose Slitter And Rewinder Machine Operator (Dexcom G7 Slitter And Rewinder Machine Operator) device Indications: Type 2 diabetes mellitus with hyperglycemia, with long-term current use of insulin (CMS/HCC) 1 each continuously 1 each 11/05/2024 Active Start: 07-10-2024 End: 11-05-2024 Continuous Glucose Slitter And Rewinder Machine Operator (Dexcom G7 Slitter And Rewinder Machine Operator) device Indications: Type 2 diabetes mellitus with diabetic polyneuropathy, with long-term current use of insulin (CMS/HCC) 1 each continuously 1 each 07/10/2024 11/05/2024 Discontinued (Reorder) Start: 07-10-2024 Continuous Glu cose Slitter And Rewinder Machine Operator (Dexcom G7 Slitter And Rewinder Machine Operator) device Indications: Type 2 diabetes mellitus with diabetic polyneuropathy, with long-term current use of insulin (CMS/HCC) 1 each continuously 1 each 07/10/2024 Active Continuous Glucose Slitter And Rewinder Machine Operator (FreeStyle Jose 3 Ferriday) device (8 sources) Start: 12-01-2024 End: 12-23-2024 Continuous Glucose Slitter And Rewinder Machine Operator (FreeStyle Jose 3 Ferriday) device Indications: Type 2 diabetes mellitus with hyperglycemia, with long-term current use of insulin (HCC) 1 each continuously 1 each 12/01/2024 12/23/2024 Discontinued Start: 12-01-2024 Continuous Glu cose Slitter And Rewinder Machine Operator (FreeStyle Jose 3 Ferriday) device Indications: Type 2 diabetes mellitus with hyperglycemia, with long-term current use of insulin (HCC) 1 each continuously 1 each 12/01/2024 Active Start: 11-21-2023 End: 07-10-2024 Continuous Glucose Slitter And Rewinder Machine Operator (FreeStyle Jose 3 Ferriday) device USE DIRECTED TO MONITOR BLOOD GLUCOSE CONTINUOUSLY 11/21/2023 07/10/2024 Discontinued Start: 11-21-2023 Continuous Glu cose Slitter And Rewinder Machine Operator (FreeStyle Jose 3 Ferriday) device USE DIRECTED TO MONITOR BLOOD GLUCOSE CONTINUOUSLY 11/21/2023 Active Continuous Glucose Sensor (Dexcom G7 Sensor) misc (10 sources) Start: 12-23-2024 Continuous Glu cose Sensor (Dexcom G7 Sensor) misc Indications: Type 2 diabetes mellitus with hyperglycemia, with long-term current use of insulin (HCC) 1 each continuously 2 each 12/23/2024 Active Start: 11-05-2024 End: 12-01-2024 Continuous Glucose Sensor (D excom G7 Sensor) mis Indications: Type 2 diabetes mellitus with hyperglycemia, with long-term current use of insulin ([facility]) 1 each continuously 2 each 11/05/2024 12/01/2024 Discontinued Start: 11-05-2024 Continuous Glu cose Sensor (Dexcom G7 Sensor) mis Indications: Type 2 diabetes mellitus with hyperglycemia, with long-term current use of insulin ([facility]) 1 each continuously 2 each 11/05/2024 Active Start: 07-10-2024 End: 08-09-2024 Continuous Glucose Sensor (D excom G7 Sensor) mis Indications: Type 2 diabetes mellitus with diabetic polyneuropathy, with long-term current use of insulin ([facility]) 1 each continuously 3 each 07/10/2024 08/09/2024 Active Continuous Glucose Sensor (FreeStyle Jose 3 Plus Sensor) [facility] (7 sources) Start: 12-01-2024 End: 12-23-2024 Continuous Glucose Sensor (FreeStyle Jose 3 Plus Sensor) [facility] Indications: Type 2 diabetes mellitus with hyperglycemia, with long-term current use of insulin ([facility]) 1 each continuously 2 each 12/01/2024 12/23/2024 Discontinued Start: 12-01-2024 Continuous Glu cose Sensor (FreeStyle Jose 3 Plus Sensor) mis Indications: Type 2 diabetes mellitus with hyperglycemia, with long-term current use of insulin ([facility]) 1 each continuously 2 each 12/01/2024 Active Start: 04-17-2024 End: 05-15-2024 Continuous Glucose Sensor (F reeStyle Jose 3 Plus Sensor) [facility] Indications: Type 2 diabetes mellitus with diabetic polyneuropathy, with long-term current use of insulin ([facility]) 1 each continuously for 28 days 2 each 04/17/2024 05/15/2024 Active docusate sodium 50 mg / sennosides, halfway 8.6 mg oral tablet (2 sources) Start: 12-06-2024 take 1 tablet by oneyda th every twelve hours as needed for constipation 1 tablet, oral, Every 12 hours PRN, constipation, Starting on 12/06/24 at 2245 Start: 06-22-2023 End: 06-25-2023 take 1 tablet by mouth every twelve hours as needed for constipation sennosides-docusate sodium (SENOKOT-S) 8.6-50 mg 1 tablet doxycycline hyclate 100 mg oral capsule (1 source) Tetracycline-class Drug Start: 12-07-2024 End: 12-12-2024 take 100 mg by mouth twice daily 100 mg, oral, 2 times daily, First dose on 12/07/24 at 0930, For 5 days, Indication: COPD Exacerbation DULoxetine 20 mg delayed release oral capsule (20 sources) Serotonin and Norepinephrine Reuptake Inhibitor Start: 08-11-2024 End: 02-07-2025 take 1 capsule by mouth once daily DULoxetine (Cymbalta) [address] capsule Indications: Type 2 diabetes mellitus with hyperglycemia, with long-term current use of insulin (HCC) TAKE 1 CAPSULE (20 MG) BY MOUTH DAILY DO NOT CRUSH OR CHEW. 90 capsule 1 08/11/2024 02/07/2025 Active Start: 03-12-2024 End: 04-11-2024 take 1 capsule by mouth once daily DULoxetine (Cymbalta) [address] capsule Indications: Type 2 diabetes mellitus with hyperglycemia, with long-term current use of insulin (CMS/HCC) Take 1 capsule (20 mg) by mouth Daily Do not crush or chew. 30 capsule 3 03/12/2024 Active empagliflozin 10 mg oral tablet (20 sources) Sodium-Glucose Cotransporter 2 Inhibitor End: 11-05-2024 take 1 tablet by mouth in the morning empagliflozin (JARDIANCE) 10 mg tablet tablet Take 1 tablet (10 mg total) by mouth in the morning. Active famotidine 40 mg oral tablet (7 sources) Histamine-2 Receptor Antagonist Start: 12-14-2023 End: 03-06-2024 take 1 tablet by mouth once daily famotidine (Pepcid) 40 MG tablet Take 40 mg by mouth Daily 12/14/2023 03/06/2024 Discontinued (Therapy completed) ferrous sulfate 325 mg oral tablet (7 sources) Start: 12-12-2024 End: 01-12-2025 take 1 tablet by mouth in the morning ferrous sulfate 325 (65 FE) MG tablet Take 1 tablet (325 mg total) by mouth in the morning. 30 tablet 12/12/2024 Active Fluad Quadrivalent syringe (12 sources) Start: 02-20-2023 End: 03-06-2024 Fluad Quadrivalent syringe Inject 0.5 mL into the shoulder, thigh, or buttocks 1 (one) time 02/20/2023 03/06/2024 Discontinued (Therapy completed) Start: 02-20-2023 Fluad Quadriva lent syringe Inject 0.5 mL into the shoulder, thigh, or buttocks 1 (one) time 02/20/2023 Active Start: 02-20-2023 Fluad Quadriva lent syringe Inject 0.5 mL into the shoulder, thigh, or buttocks 1 (one) time 0 02/20/2023 Active furosemide 20 mg oral tablet (20 sources) Loop Diuretic Start: 12-09-2024 Start: 12-07-2024 End: 12-08-2024 take 20 mg intravenously every twelve hours 20 mg, intravenous, Every 12 hours, First dose (after last reorder) on 12/07/24 at 2100, Hold for sbp Start: 12-07-2024 End: 12-07-2024 20 mg, intravenous, Once, On 12/07/24 at 0930, For 1 dose, Look-alike/sound-alike medication - verify indication for use. IVP rate = 20 mg/min Start: 12-06-2024 End: 12-06-2024 40 mg, intravenous, Once, On 12/06/24 at 2225, For 1 dose, Look-alike/sound-alike medication - verify indication for use. IVP rate = 20 mg/min Start: 11-16-2024 take 1 tablet by mouth once da uma furosemide (Lasix) 40 MG tablet Take 40 mg by mouth Daily 11/16/2024 Active Start: 12-26-2023 take 1 tablet by mouth once da uma Furosemide (Lasix) 40 mg tablet Active 40 MG PO Daily December 26, 2023 12:00am Start: 07-04-2023 End: 01-12-2025 take 1 tablet by mouth once daily furosemide (Lasix) 2 0 MG tablet Indications: Stage 3a chronic kidney disease (CMS-HCC) TAKE 1 TABLET BY MOUTH EVERY DAY 90 tablet 10/27/2024 01/12/2025 Discontinued Start: 06-21-2023 End: 06-24-2023 furosemide (LASIX) injection 40 mg Start: 05-30-2022 End: 07-04-2023 take 1 tablet by mouth [...] tablets (20 mg total) by mouth daily. 05/30/2022 Active glipiZIDE er 5 mg 24 hr extended release oral tablet (5 sources) Sulfonylurea Start: 11-21-2023 End: 01-14-2024 take 5 mg by mouth once daily Glipizide Active 5 MG PO Daily December 26, 2023 12:00am Start: 08-28-2023 End: 11-26-2023 take 1 tablet by mouth every twenty-four hours in the morning glipiZIDE (GLUCOTROL XL) 5 mg 24 hr tablet Take 1 tablet (5 mg total) by mouth in the morning. 08/28/2023 11/26/2023 Active glucagon (rdna) 1 mg injection (2 sources) Antihypoglycemic Agent Start: 12-06-2024 1 mg, i ntramuscular, As needed, low blood sugar, blood glucose less than 70 mg/dL and unconscious or NPO without IV access., Starting on 12/06/24 at 2245, If conscious and not NPO, immediately follow with meal tray or high protein (7Grams) snack if tray not available. If NPO, initiate IV 5% Dextrose/Water at 100 mL/hr and contact prescriber for additional orders. If blood glucose is not greater than 70 mg/dL after initial treatment, repeat treatment. Start: 06-22-2023 End: 06-25-2023 glucagon HCL injection 1 mg 50 ml glucose 500 mg/ml prefilled syringe (5 sources) Start: 12-06-2024 15 g, oral, As needed, low blood sugar, blood glucose less than 70 mg/dL, Starting on 12/06/24 at 2245, If patient conscious and taking PO. If blood glucose is not greater than 70 mg/dL after initial treatment, repeat treatment. Start: 12-06-2024 25 mL, intrave nous, As needed, low blood sugar, blood glucose less than 70 mg/dL and unconscious or NPO with IV access, Starting on 12/06/24 at 2245, Push over 1-3 minutes STAT. If conscious and not NPO, immediately follow with meal tray or high protein (7 grams) snack if tray not available. If NPO, initiate 5% dextrose in water at 100 mL/hr and contact prescriber for additional orders. If blood glucose is not greater than 70 mg/dL after initial treatment, repeat treatment. VESICANT (RED) Warning: HYPERTONIC solution. Start: 06-22-2023 End: 06-25-2023 dextrose (GLUTOSE) 40 % gel 15 g Start: 06-22-2023 End: 06-25-2023 dextrose 50 % in water (D50W ) 50% solution 25 mL Start: 06-22-2023 End: 06-25-2023 dextrose 5 % (D5W) infusion insulin glargine 100 unt/ml injectable solution (20 sources) Insulin Analog Start: 01-12-2025 inject 10 [IU] by subcutaneous injection in the morning insulin glargine (Lantus) 100 UNIT/ML injection Inject 10 Units under the skin in the morning. 01/12/2025 Active Start: 12-23-2024 End: 01-12-2025 inject 15 [IU] by subcutaneous injection in the morning insulin glargine (Lantus) 100 UNIT/ML injection Inject 15 Units under the skin in the morning. 12/23/2024 01/12/2025 Discontinued (Dose adjustment) Start: 12-07-2024 20 Units, subc utaneous, Daily, First dose on Sun12/07/24 at 0930, Look-alike/sound-alike medication - verify indication for use. Prime with 2 units of insulin prior to administration. Basal (long acting) insulin for subcutaneous administration only. Do not mix with any other insulin. Pre-filled pens stable 28 days at room temperature. Start: 06-22-2023 End: 06-25-2023 35 Units, subcutaneous, Roberto y, First dose on Sun06/22/23 at 0900, Look-alike/sound-alike medication - verify indication for use. Prime with 2 units of insulin prior to administration. Basal (long acting) insulin for subcutaneous administration only. Do not mix with any other insulin. Pre-filled pens stable 28 days at room temperature. Start: 08-08-2021 inject 0.2 mL by sub cutaneous injection in the morning insulin glargine (LANTUS) 100 unit/mL injection Inject 0.2 mL (20 Units total) under the skin in the morning. 08/08/2021 Active Start: 08-08-2021 inject 0.35 mL by jenkins bcutaneous injection in the morning insulin glargine (LANTUS) 100 unit/mL injection Inject 0.35 mL (35 Units total) under the skin in the morning. 08/08/2021 Active End: 12-23-2024 inject 20 [IU] by subcutaneous injection once daily insulin glargine (Lantus) 100 UNIT/ML injection Inject 20 Units under the skin 1 (one) time each day 12/23/2024 Discontinued (Dose adjustment) inject 15 [IU] by jenkins bcutaneous injection once daily insulin glargine (Lantus) 100 UNIT/ML injection Inject 15 Units under the skin 1 (one) time each day Active inject 35 [IU] by jenkins bcutaneous injection once daily insulin glargine (Lantus) 100 UNIT/ML injection Inject 35 Units under the skin 1 (one) time each day 0 Active inject 45 [IU] by jenkins bcutaneous injection once daily insulin glargine (Lantus) 100 UNIT/ML injection Inject 45 Units under the skin 1 (one) time each day 0 Active 3 ml insulin lispro 100 unt/ml pen injector (2 sources) Insulin Analog Start: 12-07-2024 inject 400 mg by subcutaneous injection three times daily at mealtime, then inject 2 [IU] by subcutaneous injection 15 minutes after mealtime 2-10 Units, subcutaneous, 3 times daily with meals, First dose on 12/07/24 at 0800, Daytime hyperglycemia dosing. For blood glucose 151-200 mg/dL, give 2 units. For blood glucose 201-250 mg/dL, give 4 units. For blood glucose 251-300 mg/dL, give 6 units. For blood glucose 301-350 mg/dL, give 8 units. For blood glucose 351-400 mg/dL, give 10 units. Give even if NPO or meals skipped. Do NOT give more often then every 4 hours when NPO. Notify prescriber if blood glucose greater than 400 mg/dL. Look-alike/sound-alike medication - verify indication for use. Prime with 2 units of insulin prior to administration. Prandial/supplemental Insulin. Pre-filled pens stable 28 days at room temperature. Insulin lispro should be administered within 15 minutes before or immediately after a meal. Start: 12-06-2024 inject 400 mg by sub cutaneous injection once daily, then inject 2 [IU] by subcutaneous injection 15 minutes after mealtime 2-8 Units, subcutaneous, Nightly, First dose on 12/06/24 at 2250, Bedtime hyperglycemia dosing. For blood glucose 201-250 mg/dL, give 2 units. For blood glucose 251-300 mg/dL, give 4 units. For blood glucose 301-350 mg/dL, give 6 units. For blood glucose 351-400 mg/dL, give 8 units. Give even if NPO or meals skipped. Do NOT give more often then every 4 hours when NPO. Notify prescriber if blood glucose greater than 400 mg/dL. Look-alike/sound-alike medication - verify indication for use. Prime with 2 units of insulin prior to administration. Prandial/supplemental Insulin. Pre-filled pens stable 28 days at room temperature. Insulin lispro should be administered within 15 minutes before or immediately after a meal. letrozole 2.5 mg oral tablet (20 sources) Aromatase Inhibitor Start: 08-01-2022 End: 06-02-2024 take 1 tablet by mouth once daily letrozole (FEMARA) 2.5 mg chemo tablet Take 1 tablet by mouth daily 90 tablet 3 06/02/2024 Active levothyroxine sodium 0.05 mg oral tablet (20 sources) l-Thyroxine Start: 12-04-2024 take 1 tablet by mouth before mealtime levothyroxine (Synthroid, Levoxyl) 50 MCG tablet Indications: Hypothyroidism Take 1 tablet (50 mcg) by mouth in the morning. Take before meals. 90 tablet 1 12/04/2024 Active Start: 11-05-2024 take 1 tablet by oneyda th before mealtime levothyroxine (Synthroid, Levoxyl) 50 MCG tablet Indications: Hypothyroidism, unspecified type Take 1 tablet (50 mcg) by mouth in the morning. Take before meals. 11/05/2024 Active Start: 11-05-2023 End: 11-05-2024 take 1 tablet by mouth before mealtime levothyroxine (Synthroid, Levoxyl) 75 MCG tablet Indications: Hypothyroidism, unspecified type (CMS/HCC) TAKE 1 TABLET BY MOUTH IN THE MORNING. TAKE BEFORE MEALS. 90 tablet 1 11/05/2023 11/05/2024 Discontinued Start: 06-22-2023 End: 06-25-2023 50 mcg, oral, Daily, First d ose on Sun06/22/23 at 0600, Look-alike/sound-alike medication. Verify indication for use Administer on empty stomach at least ONE hour before or TWO hours after food Enteral Feeding: For 7 days or less of tube feeding- do NOT hold tube feedings, after 7 days- hold tube feedings ONE hour before and ONE hour after administration DOES NOT APPLY TO NEONATES Monitor thyroid function tests weekly 50 ml magnesium sulfate 40 mg/ml injection (5 sources) Start: 12-06-2024 2,000 mg, intr avenous, at 25 mL/hr, Administer over 120 Minutes, As needed, Magnesium level 1.7 to 1.9 mg/dL, or Ionized Magnesium level 0.45 to 0.5 mmol/L., Starting on 12/06/24 at 2245, Recheck magnesium level 4 hours after infusion complete. With each magnesium result continue the replacement orders as needed. Start: 12-06-2024 4,000 mg, intr avenous, at 25 mL/hr, Administer over 240 Minutes, As needed, Magnesium level 1.6 mg/dL or less, or Ionized Magnesium level 0.44 mmol/L or less, Starting on 12/06/24 at 2245, Recheck magnesium level 4 hours after infusion complete. With each magnesium result continue the replacement orders as needed. Start: 12-06-2024 End: 12-07-2024 2,000 mg, intravenous, at 25 mL/hr, Administer over 120 Minutes, Once, On 12/06/24 at 2225, For 1 dose, Infuse each gram over 60 minutes. Start: 06-22-2023 End: 01-29-2024 magnesium sulfate IVPB 2000 mg/50 mL in iso-osmotic water (40 mg/mL premix) Start: 06-22-2023 End: 06-25-2023 magnesium sulfate IVPB 4000 mg/100 mL in iso-osmotic water (40 mg/mL premix) methylPREDNISolone 125 mg injection (2 sources) Corticosteroid Start: 12-07-2024 take 40 mg intravenously every twelve hours 40 mg, intravenous, Every 12 hours, First dose (after last reorder) on 12/07/24 at 0800, May alter blood glucose or insulin requirements. Look-alike/sound-alike medication - verify indication for use. Start: 12-06-2024 End: 12-06-2024 125 mg, intravenous, Once, O n 12/06/24 at 2105, For 1 dose, May alter blood glucose or insulin requirements. Look-alike/sound-alike medication - verify indication for use. metoprolol tartrate 25 mg oral tablet (20 sources) beta-Adrenergic Terry Start: 12-07-2024 take 12.5 mg by mouth once daily 12.5 mg, oral, Daily, First dose on 12/07/24 at 0930, Hold for sbp Start: 11-19-2023 take 1 tablet by oneyda th once daily metoprolol succinate XL (Toprol-XL) 25 MG 24 hr tablet Take 12.5 mg by mouth Daily 11/19/2023 Active Start: 06-22-2023 End: 06-22-2023 metoprolol (LOPRESSOR) injec tion 2.5 mg take 0.5 tablet by m outh every twenty-four hours in the morning metoprolol succinate XL (TOPROL XL) 25 mg 24 hr tablet Take 0.5 tablets (12.5 mg total) by mouth in the morning. Active take 0.5 tablet by m outh in the morning metoprolol tartrate (LOPRESSOR) 25 mg tablet Take 0.5 tablets (12.5 mg total) by mouth in the morning. Active midodrine hydrochloride 5 mg oral tablet (1 source) alpha-Adrenergic Agonist Start: 12-07-2024 take 5 mg by mouth three times daily as needed 5 mg, oral, 3 times daily PRN, SBP less than 90, Starting on 12/07/24 at 1212, Look-alike/sound-alike medication - verify indication for use. nitrofurantoin, macrocrystals 25 mg / nitrofurantoin, monohydrate 75 mg oral capsule (1 source) Nitrofuran Antibacterial Start: 08-25-2024 End: 09-01-2024 take 1 capsule by mouth in the morning nitrofurantoin, macrocrystal-monohydrate, (Macrobid) 100 MG capsule Indications: Urinary tract infection without hematuria, site unspecified Take 1 capsule (100 mg) by mouth in the morning and 1 capsule (100 mg) before bedtime. Do all this for 7 days. 14 capsule 08/25/2024 09/01/2024 Active nitroglycerin 0.4 mg sublingual tablet (5 sources) Nitrate Vasodilator Start: 02-13-2023 nitroglycerin (Nitrostat) 0.[address] 0.4 mg under the tongue every 5 (five) minutes if needed for chest pain 0 02/13/2023 Active omeprazole 40 mg delayed release oral capsule (16 sources) Proton Pump Inhibitor Start: 07-07-2024 End: 10-28-2024 take 1 capsule by mouth before mealtime omeprazole (PriLOSEC) [address] capsule Indications: Gastroesophageal reflux disease, unspecified whether esophagitis present TAKE 1 CAPSULE BY MOUTH IN THE MORNING. TAKE BEFORE MEALS. DO NOT CRUSH OR CHEW. 90 capsule 3 10/27/2024 Active ondansetron 4 mg disintegrating oral tablet (3 sources) Serotonin-3 Receptor Antagonist Start: 12-06-2024 take 1 tablet by mouth (buccal) every six hours as needed for nausea and vomiting 4 mg, buccal, Every 6 hours PRN, nausea, vomiting, Starting on 12/06/24 at 2245 Start: 12-06-2024 End: 12-06-2024 4 mg, intravenous, Once, On 12/06/24 at 2105, For 1 dose, Intravenous administration preferred to be given over 2-5 minutes. Start: 06-22-2023 End: 06-25-2023 take 4 mg intravenously every four hours as needed for nausea and vomiting ondansetron (PF) (ZOFRAN) injection 4 mg pantoprazole 40 mg delayed release oral tablet (18 sources) Proton Pump Inhibitor Start: 03-06-2024 End: 07-07-2024 take 1 tablet by mouth once daily before mealtime pantoprazole (ProtoNix) 40 MG EC tablet Indications: Gastroesophageal reflux disease, unspecified whether esophagitis present TAKE 1 TABLET BY MOUTH EVERY DAY IN THE MORNING BEFORE MEALS 90 tablet 1 03/31/2024 07/07/2024 Discontinued (Ineffective) Start: 06-22-2023 End: 06-25-2023 pantoprazole (PROTONIX) EC t ablet 40 mg Potassium Chloride (3 sources) Start: 12-06-2024 potassium chlo ride (KLOR-CON M 20) CR tablet 20-40 mEq Start: 12-06-2024 End: 12-06-2024 40 mEq, oral, Once, On Sat at 2225, For 1 dose, Must dilute before use - Mix in 3-8 ounces of water or juice before administration When administering in feeding tube, flush before and after per policy and monitor potassium levels Start: 06-22-2023 End: 06-25-2023 potassium chloride (K-TAB,KL OR-CON) CR tablet 30-50 mEq pregabalin 100 mg oral capsule (20 sources) Start: 11-05-2024 End: 01-12-2025 take 1 capsule by mouth in the morning pregabalin (Lyrica) 75 MG capsule Indications: Type 2 diabetes mellitus with diabetic neuropathy, with long-term current use of insulin (HCC) Take 1 capsule (75 mg) by mouth in the morning and 1 capsule (75 mg) before bedtime. 11/05/2024 01/12/2025 Discontinued Start: 08-13-2024 End: 12-08-2024 take 1 capsule by mouth in the morning pregabalin (Lyrica) 100 MG capsule Take 100 mg by mouth in the morning and 100 mg before bedtime. 12/18/2024 Active Start: 01-03-2024 End: 11-05-2024 take 1 capsule by mouth in the morning pregabalin (Lyrica) 150 MG capsule Indications: Type 2 diabetes mellitus with diabetic neuropathy, unspecified (CMS/HCC) , Type 2 diabetes mellitus with diabetic polyneuropathy, with long-term current use of insulin (CMS/HCC) TAKE 1 CAPSULE BY MOUTH IN THE MORNING AND 1 CAPSULE BEFORE BEDTIME. 180 capsule 01/03/2024 11/05/2024 Discontinued (Dose adjustment) Start: 12-26-2023 take 150 mg by mouth twice denilson ly Pregabalin Active 150 MG PO Twice daily December 26, 2023 12:00am Start: 06-22-2023 End: 06-25-2023 take 150 mg by mouth twice daily 150 mg, oral, 2 times daily, First dose on Sun06/22/23 at 0200, Look-alike/sound-alike medication. Verify indication for use Start: 06-04-2023 End: 10-02-2023 take 1 capsule [...] bedtime. 180 capsule 0 07/04/2023 10/02/2023 Active End: 12-05-2024 take 2 capsules by mouth in the morning, then take 2 capsules by mouth at bedtime pregabalin (LYRICA) 75 mg capsule Take 2 capsules (150 mg total) by mouth in the morning and 2 capsules (150 mg total) before bedtime. 12/05/2024 Discontinued primidone 50 mg oral tablet (17 sources) Anti-epileptic Agent Start: 12-05-2024 End: 12-08-2024 primidone (MYSOLINE) 50 mg tablet Indications: Intention tremor Take 1 tablet (50 mg) twice daily 60 tablet 5 12/05/2024 Active Start: 12-05-2024 take 1 tablet by oneyda th in the morning primidone (Mysoline) 50 MG tablet Take 50 mg by mouth in the morning and 50 mg before bedtime. 12/05/2024 Active Start: 09-05-2024 End: 12-05-2024 primidone (MYSOLINE) 50 mg t ablet Indications: Intention tremor Take 1/2 tablet (25 mg) nightly for 2 weeks, then increase to 1/2 tablet (25 mg) twice daily 30 tablet 2 09/05/2024 12/05/2024 Discontinued (Reorder) rOPINIRole 1 mg oral tablet (20 sources) Nonergot Dopamine Agonist Start: 12-09-2024 take 3 mg by mouth once daily 3 mg, oral, Daily, First dose (after last modification) on Sun12/09/24 at 0900, Look-alike/sound-alike medication - verify indication for use. Start: 12-08-2024 take 3 mg by mouth o nce daily 3 mg, oral, Nightly, First dose (after last modification) on Sun12/08/24 at 2100, Look-alike/sound-alike medication - verify indication for use. Start: 12-08-2024 End: 12-08-2024 take 5 mg by mouth once daily 5 mg, oral, Daily, First dose on Sun12/08/24 at 0900, Look-alike/sound-alike medication - verify indication for use. Start: 12-07-2024 End: 12-08-2024 take 10 mg by mouth once daily 10 mg, oral, Nightly, First dose on Sun12/07/24 at 2200, Look-alike/sound-alike medication - verify indication for use. Start: 09-27-2023 End: 09-15-2024 take 1 tablet by mouth in the morning, then take 1 tablet by mouth in the evening, then take 1 tablet by mouth at bedtime rOPINIRole (Requip) 5 MG tablet Indications: Restless legs syndrome Take 1 tablet (5 mg) by mouth in the morning and 1 tablet (5 mg) in the evening and 1 tablet (5 mg) before bedtime. 270 tablet 3 09/16/2024 Active Start: 06-22-2023 End: 06-25-2023 take 5 mg by mouth three times daily 5 mg, oral, 3 times daily, First dose on Sun06/22/23 at 0200, Look-alike/sound-alike medication - verify indication for use. Start: 06-22-2023 End: 06-22-2023 rOPINIRole (REQUIP) 0.5 mg t ablet - Pyxis Override Pull Start: 06-21-2023 End: 09-19-2023 take 1 tablet [...] rOPINIRole (REQUIP) 3 mg tablet Take 5 m g by mouth 3 (three) times a day. Active 1000 ml sodium chloride 9 mg/ml injection (11 sources) Start: 12-06-2024 take 10 mL intravenously every hour as needed 10 mL/hr, intravenous, Continuous PRN, to maintain patency of lines, Starting on 12/06/24 at 2245 Start: 12-06-2024 3 mL, intraven ous, Every 12 hours scheduled, First dose on 12/06/24 at 2105 Start: 12-06-2024 3 mL, intraven ous, As needed, line care, before and after each intermittent use, Starting on Sun12/06/24 at 2059 Start: 09-18-2023 End: 09-18-2023 20 mL, intravenous, As neede d, port line care, Starting on Sun09/18/23 at 1015, Flush with NS prior to Heplock. Start: 08-08-2023 End: 08-08-2023 sodium chloride 0.9 % flush 20 mL Start: 06-28-2023 End: 06-28-2023 sodium chloride 0.9 % flush 20 mL Start: 06-24-2023 End: 06-24-2023 sodium chloride 0.45 % bolus Start: 06-22-2023 End: 06-25-2023 sodium chloride 0.9 % flush 3 mL Start: 06-22-2023 End: 06-25-2023 sodium chloride 0.9 % infusi on Vitamin B Complex (10 sources) Start: 12-26-2023 take 1 capsule by mo uth once daily Vitamin B Complex Active CAP PO Daily December 26, 2023 12:00am Start: 11-06-2023 End: 05-04-2024 take 1 tablet by mouth in the morning b complex vitamins tablet Indications: Diabetic peripheral neuropathy (CMS-HCC) , Paresthesias in right hand Take 1 tablet by mouth in the morning. 90 tablet 1 11/06/2023 05/04/2024 Discontinued Start: 11-06-2023 take 1 tablet by oneyda th in the morning b complex vitamins tablet Indications: Diabetic peripheral neuropathy (CMS-HCC) , Paresthesias in right hand Take 1 tablet by mouth in the morning. 90 tablet 1 11/06/2023 Active Completed/Discontinued Medications Medication Drug Class(es) Dates Sig (Normalized) Sig (Original) acetaminophen 325 mg / HYDROcodone bitartrate 5 mg oral tablet (1 source) Opioid Agonist Start: 04-11-2019 End: 12-26-2023 take 1 tablet by mouth every four to six hours Hydrocodone-Acetami nophen ([place]) 5-325 mg Tablet Discontinued 1 TAB PO EVERY 4-6 HOURS 7 3 April 11, 2019 1:00am December 26, 2023 1:00pm alogliptin 12.5 mg / metFORMIN hydrochloride 1000 mg oral tablet (20 sources) Biguanide End: 03-07-2024 take 1 tablet by mouth once daily alogliptin-metFORMI N 12.5-1,000 mg tablet Take 12.5 mg by mouth daily. 03/07/2024 Discontinued aluminum hydroxide 40 mg/ml / magnesium hydroxide 40 mg/ml / simethicone 4 mg/ml oral suspension (2 sources) Start: 12-08-2024 End: 12-08-2024 take 30 mL by mouth once 30 mL, oral, Once, On Sun12/08/24 at 0900, For 1 dose, Look-alike/sound-al camacho medication - verify indication for use. Shake well. Start: 06-22-2023 End: 06-25-2023 alum-mag hydroxide-simeth (M AALOX) 200-200-20 mg/5 mL suspension 30 mL azithromycin (ZITHROMAX) 500 mg in sodium chloride 0.9 % 250 mL IVPB W/ADAPTER (1 source) Start: 12-06-2024 End: 12-07-2024 500 mg, intravenous, at 250 mL/hr, Administer over 60 Minutes, Once, On 12/06/24 at 2225, For 1 dose, For Vial-2-Bag: Attach bag and vial to adapter - Use immediately after activating; dissolve drug prior to administration., Indication: Acute COPD exacerbation ciprofloxacin 500 mg oral tablet (2 sources) Quinolone Antimicrobial Start: 01-01-2025 End: 01-12-2025 take 1 tablet by mouth in the morning ciprofloxacin (Cipro) 500 MG tablet Indications: Urinary tract infection without hematuria, site unspecified Take 1 tablet (500 mg) by mouth in the morning and 1 tablet (500 mg) before bedtime. Do all this for 7 days. 14 tablet 01/01/2025 01/12/2025 Discontinued 0.3 ml enoxaparin sodium 100 mg/ml prefilled syringe (1 source) Low Molecular Weight Heparin Start: 06-22-2023 End: 06-25-2023 enoxaparin (LOVENOX) syringe 30 mg 1 ml heparin sodium, porcine 5000 unt/ml injection (4 sources) Unfractionated Heparin, Anti-coagulant Start: 12-06-2024 End: 12-08-2024 5,000 Units, subcutaneous, Every 8 hours scheduled, First dose on Sun12/06/24 at 2250, Notify prescriber if INR greater than 1.9, hemoglobin less than 10 mg/dL, aPTT greater than 40 seconds, and/or platelet count less than 100,000/mm Look-alike/sound-eve e medication - verify indication for use. Observe for bleeding. Start: 09-18-2023 End: 09-18-2023 500 Units, intravenous, As n eeded, deaccessing, Starting on Sun09/18/23 at 1015, Heplock following NS flush. Look-alike/sound-alike medication - verify indication for use. Start: 08-08-2023 End: 08-08-2023 heparin, porcine (PF) syring e 500 Units Start: 06-28-2023 End: 06-28-2023 heparin, porcine (PF) syring e 500 Units hydroCHLOROthiazide 25 mg oral tablet (20 sources) Thiazide Diuretic Start: 05-28-2023 End: 07-04-2023 take 25 mg by mouth once daily 25 mg, oral, Daily, First dose on Sun06/22/23 at 0900, Look-alike/sound-alike medication - verify indication for use. losartan potassium 25 mg oral tablet (20 sources) Angiotensin 2 Receptor Terry Start: 02-12-2023 End: 06-25-2024 take 25 mg by mouth once daily 25 mg, oral, Daily, First dose on Sun06/22/23 at 0900, Look-alike/sound-alike medication - verify indication for use. metFORMIN hydrochloride 1000 mg oral tablet (20 sources) Biguanide Start: 12-20-2023 End: 01-12-2025 take 1 tablet by mouth twice daily metFORMIN (Glucophage) 1000 MG tablet Indications: Type 2 diabetes mellitus with diabetic polyneuropathy, with long-term current use of insulin (HCC) TAKE 1 TABLET BY MOUTH TWICE A DAY 180 tablet 3 12/20/2023 01/12/2025 Discontinued take 0.5 tablet by m outh in the morning, then take 0.5 tablet by mouth at mealtime metFORMIN (GLUCOPHAGE) 1000 mg tablet Ta ke 0.5 tablets (500 mg total) by mouth in the morning and 0.5 tablets (500 mg total) in the evening. Take with meals. Active metFORMIN (Gluco phage) 1000 MG tablet Take 500 mg by mouth in the morning and 500 mg in the evening. Take with meals. 0 Active perflutren lipid microspheres (DEFINITY) dilution injection 1.43 mg/10 mL (1 source) Start: 12-08-2024 End: 12-08-2024 2 mL, intravenous, As needed, contrast, Starting on Sun12/08/24 at 1415, For 6 hours, Additional Imaging Orders, Dilute 1.3 mL of Definity with 8.7mL of 0.9% NaCl in 10 mL syringe Administer 2 mL perflutren (Definity) contrast if 2 contiguous segments of the LV are not well visualized. May repeat 2 mL dose until LV visualization is accomplished. Procedure total dose not to exceed 10 mL. vitamin b6 50 mg oral tablet (2 sources) Start: 08-14-2022 End: 06-22-2023 take 1 tablet by mouth in the morning pyridoxine, vitamin B6, (B-6) 50 mg tablet Indications: Peripheral polyneuropathy , Vitamin B6 deficiency Take 1 tablet (50 mg total) by mouth in the morning. 60 tablet 0 08/14/2022 06/22/2023 Discontinued (Therapy completed) Problems Active Problems Problem Classification Problem Date Documented Da te Episodic/Chronic Administrative/social admission (2 sources) Patient encounter status; Translations: [Dietary counseling and surveillance] 03-12-2024 Episodic Cancer of breast (20 sources) Malignant neoplasm of unspecified site of unspecified female breast; Translations: [Malignant neoplasm of upper-inner quadrant of right female breast] Onset: Resolved: 5 Chronic Chronic kidney disease (20 sources) Chronic kidney disease stage 3A ; Translations: [Stage 3a chronic kidney disease (HCC)] Onset: 3 05-10-2023 Chronic Chronic obstructive pulmonary disease and bronchiectasis (20 sources) Suspected respiratory disease; Translations: [Chronic obstructive pulmonary disease, unspecified] Onset: 4 09-20-2023 Chronic Congestive heart failure; nonhypertensive (20 sources) Chronic diastolic heart failure; Translations: [Chronic diastolic (congestive) heart failure] Onset: 4 Resolved: 5 07-04-2023 Chronic Coronary atherosclerosis and other heart disease (20 sources) Coronary arteriosclerosis; Translations: [Atherosclerotic heart disease of [place] coronary artery without angina pectoris] Onset: 2 Resolved: 5 05-10-2023 Chronic Diabetes mellitus with complications (20 sources) Type 2 diabetes mellitus; Translations: [Type 2 diabetes mellitus with diabetic polyneuropathy] Onset: 3 Resolved: 5 05-10-2023 Chronic Diabetes mellitus without complication (20 sources) Type 2 diabetes mellitus without complications; Translations: [Diabetes mellitus] Onset: 0 Chronic Disorders of lipid metabolism (20 sources) Mixed hyperlipidemia; Translations: [Mixed hyperlipidemia] Onset: 0 05-10-2023 Chronic Esophageal disorders (20 sources) Gastroesophageal reflux disease; Translations: [Gastro-esophageal reflux disease without esophagitis] Onset: 4 03-06-2024 Chronic Essential hypertension (20 sources) Essential (primary) hypertension; Translations: [Benign essential hypertension] Onset: 2 Resolved: 3 Chronic Hypertension with complications and secondary hypertension (20 sources) Hypertensive heart failure; Translations: [Hypertensive heart disease with heart failure] Onset: 0 Resolved: 5 01-02-2024 Chronic Immunizations and screening for infectious disease (2 sources) Needs influenza immunization; Translations: [Encounter for immunization] 03-06-2024 Episodic Multiple sclerosis (20 sources) Multiple sclerosis; Translations: [Multiple sclerosis] 12-09-2023 Chronic Nonspecific chest pain (1 source) Chest pain, unspecified; Translations: [Chest pain, unspecified] Onset: 5 Episodic Nutritional deficiencies (2 sources) Vitamin D deficiency; Translations: [Vitamin D deficiency, unspecified] 03-12-2024 Chronic Osteoporosis (4 sources) Senile osteoporosis; Translations: [Age-related osteoporosis without current pathological fracture] Onset: 5 06-02-2024 Chronic Other aftercare (2 sources) Long-term current use of insulin; Translations: [FPC (current) use of insulin] 03-12-2024 Episodic Other aftercare (1 source) Taking high risk medication; Translations: [Other terminal manager (current) drug therapy] 06-02-2024 Episodic Other aftercare (1 source) Prophylactic aromatase inhibitors given; Translations: [intermediate designer (current) use of aromatase inhibitors] 06-02-2024 Episodic Other aftercare (5 sources) Long-term current use of drug therapy; Translations: [Other senior care (current) drug therapy] Onset: 5 01-12-2025 Episodic Other aftercare (1 source) Other senior care (current) drug therapy; Translations: [Other terminal manager (current) drug therapy] Onset: 5 Episodic Other circulatory disease (1 source) Presence of other vascular implants and grafts; Translations: [Presence of other vascular implants and grafts] Onset: 4 Chronic Other circulatory disease (2 sources) Device in situ; Translations: [Presence of other vascular implants and grafts] 09-20-2023 Chronic Other gastrointestinal disorders (20 sources) Chronic idiopathic constipation; Translations: [Chronic idiopathic constipation] Onset: 4 11-19-2023 Chronic Other hereditary and degenerative nervous system conditions (20 sources) Restless legs; Translations: [Restless legs syndrome] Onset: 3 05-10-2023 Chronic Other hereditary and degenerative nervous system conditions (2 sources) Isolated cervical dystonia; Translations: [Spasmodic torticollis] 11-07-2023 Chronic Other hereditary and degenerative nervous system conditions (1 source) Torsion dystonia; 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-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 Other hereditary and degenerative nervous system conditions (1 source) Essential tremor; Translations: [Essential tremor] 08-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 Other hereditary and degenerative nervous system conditions (2 sources) Intention tremor; Translations: [Other specified forms of tremor] 09-05-2024 Chronic Other hereditary and degenerative nervous system conditions (1 source) Other specified forms of tremor; Translations: [Other specified forms of tremor] Onset: 5 Chronic Other hereditary and degenerative nervous system conditions (1 source) Spasmodic torticollis; Translations: [Spasmodic torticollis] Onset: 4 Chronic Other hereditary and degenerative nervous system conditions (1 source) Genetic torsion dystonia; 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] Onset: 4 Chronic Other lower respiratory disease (1 source) Other forms of dyspnea; Translations: [Other forms of dyspnea] Onset: 5 Episodic Other lower respiratory disease (1 source) Dyspnea, unspecified; Translations: [Dyspnea, unspecified] Onset: 5 Episodic Other lower respiratory disease (1 source) Shortness of breath Onset: 5 Episodic Other lower respiratory disease (2 sources) Personal history of other diseases of the respiratory system; Translations: [Personal history of other diseases of the respiratory system] Onset: 5 Episodic Other nervous system disorders (20 sources) Bilateral carpal tunnel syndrome; Translations: [Carpal tunnel syndrome, bilateral upper limbs] Onset: 4 12-09-2023 Chronic Other nervous system disorders (20 sources) Bilateral ulnar nerve disorder; Translations: [Lesion of ulnar nerve, bilateral upper limbs] Onset: 4 12-09-2023 Chronic Other nervous system disorders (1 source) Ulnar neuropathy; Translations: [Lesion of ulnar nerve, right upper limb] 07-06-2023 Chronic Other nervous system disorders (1 source) Carpal tunnel syndrome of right wrist; Translations: [Carpal tunnel syndrome, right upper limb] 03-07-2024 Chronic Other nervous system disorders (1 source) Ulnar neuropathy of right arm; Translations: [Lesion of ulnar nerve, right upper limb] 03-07-2024 Chronic Other nervous system disorders (2 sources) Polyneuropathy, unspecified; Translations: [Polyneuropathy, unspecified] Onset: 4 Chronic Other nervous system disorders (1 source) Carpal tunnel syndrome, right upper limb; Translations: [Carpal tunnel syndrome, right upper limb] Onset: 4 Chronic Other nervous system disorders (1 source) Lesion of ulnar nerve, right upper limb; Translations: [Lesion of ulnar nerve, right upper limb] Onset: 4 Chronic Other nervous system disorders (4 sources) Paresthesia of hand ; Translations: [Paresthesia of skin] 11-06-2023 Episodic Other nervous system disorders (3 sources) Abnormal gait; Translations: [Unsteadiness on feet] 03-07-2024 Episodic Other nutritional; endocrine; and metabolic disorders (20 sources) Body mass index 30+ - obesity; Translations: [Obesity, unspecified] Onset: 3 07-04-2023 Chronic Other nutritional; endocrine; and metabolic disorders (4 sources) Hypomagnesemia; Translations: [Hypomagnesemia] Onset: 5 12-06-2024 Chronic Other nutritional; endocrine; and metabolic disorders (1 source) Hypomagnesemia; Translations: [Hypomagnesemia] Onset: 5 Chronic Other screening for suspected conditions (not mental disorders or infectious disease) (20 sources) MRI of head abnormal; Translations: [Abnormal findings on diagnostic imaging of skull and head, not elsewhere classified] Onset: 4 12-09-2023 Episodic Ofelia-; endo-; and myocarditis; cardiomyopathy (except that caused by tuberculosis or sexually transmitted disease) (2 sources) Cardiomyopathy in diseases classified elsewhere; Translations: [Cardiomyopathy in diseases classified elsewhere] Onset: 4 Chronic Phlebitis; thrombophlebitis and thromboembolism (4 sources) Phlebitis and thrombophlebitis of superficial vessels of unspecified lower extremity; Translations: [PHLEBITIS AND TP SUP VES UNS LOW EXT] Onset: 2 Episodic Pulmonary heart disease (20 sources) Pulmonary hypertension, unspecified; Translations: [Other chronic pulmonary heart diseases] Onset: 4 01-02-2024 Chronic Residual codes; unclassified (4 sources) Localized edema; Translations: [LOCALIZED EDEMA] Onset: 2 Episodic Residual codes; unclassified (1 source) Pain, unspecified; Translations: [Pain, unspecified] Onset: 5 Episodic Respiratory failure; insufficiency; arrest (adult) (20 sources) [id number] respiratory failure; Translations: [Acute and chronic respiratory failure with hypoxia] Onset: 4 12-26-2023 Chronic Respiratory failure; insufficiency; arrest (adult) (3 sources) Acute respiratory failure; Translations: [Acute respiratory failure with hypoxia] Onset: 5 12-07-2024 Episodic Secondary malignancies (20 sources) Secondary malignant neoplasm of axillary lymph nodes; Translations: [Secondary and unspecified malignant neoplasm of axilla and upper limb lymph nodes] Onset: 2 Resolved: 5 07-04-2023 Chronic Secondary malignancies (2 sources) Secondary and unspecified malignant neoplasm of axilla and upper limb lymph nodes; Translations: [Secondary and unspecified malignant neoplasm of axilla and upper limb lymph nodes] Onset: 4 Chronic Spondylosis; intervertebral disc disorders; other back problems (1 source) Spondylosis without myelopathy or radiculopathy, thoracic region; Translations: [SPONDYLS W/O MYELO-/RADICULOP THOR] Onset: 2 Chronic Sprains and strains (1 source) Strain of knee; Translations: [Strain of unspecified muscle(s) and tendon(s) at lower leg level, unspecified leg, initial encounter] 05-09-2023 Episodic Substance-related disorders (20 sources) Tobacco dependence caused by cigarettes; Translations: [Nicotine dependence, cigarettes, uncomplicated] Onset: 3 03-21-2023 Chronic Superficial injury; contusion (2 sources) Contusion of knee; Translations: [Contusion of unspecified knee, initial encounter] 05-09-2023 Episodic Thyroid disorders (20 sources) 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; Translations: [Autoimmune thyroiditis] Onset: 4 08-28-2023 Chronic Unclassified (4 sources) Unspecified lump in the right breast, overlapping quadrants; Translations: [UNS LUMP RT BREAST OVRLPNG QUADRNTS] Onset: 1 Unclassified (1 source) EMS Onset: 5 Varicose veins of lower extremity (1 source) Varicose veins of bilateral lower extremities with pain; Translations: [VARICOSE VNS JOSE L LOW EXTREM W/PAIN] Onset: Episodic Past or Other Problems Problem Classification Problem Date Documented Da te Episodic/Chronic Abdominal hernia (20 sources) Ventral incisional hernia; Translations: [Incisional hernia without obstruction or gangrene] Onset: 07-15-2018 07-04-2023 Episodic Cancer of breast (20 sources) History of malignant neoplasm of breast; Translations: [Personal history of malignant neoplasm of breast] Onset: 08-01-2021 05-10-2023 Episodic Cardiac dysrhythmias (20 sources) Ventricular bigeminy; Translations: [Other specified cardiac arrhythmias] Onset: 10-24-2023 Resolved: 11-05-2024 12-26-2023 Chronic Cardiac dysrhythmias (20 sources) Intermittent palpitations; Translations: [Palpitations] Onset: 05-10-2023 05-10-2023 Episodic Conditions associated with dizziness or vertigo (20 sources) Dizziness and giddiness; Translations: [Dizziness and giddiness] Onset: 08-02-2023 Resolved: 11-05-2024 08-02-2023 Episodic Deficiency and other anemia (20 sources) Normocytic anemia; Translations: [Anemia, unspecified] Onset: 09-20-2023 09-20-2023 Episodic Fluid and electrolyte disorders (20 sources) Low blood pressure; Translations: [Hypovolemia] Onset: 10-19-2023 10-19-2023 Episodic Heart valve disorders (20 sources) Ventricular bigeminy; Translations: [Other abnormalities of heart beat] Onset: 07-04-2023 07-04-2023 Episodic Malaise and fatigue (20 sources) Asthenia; Translations: [Weakness] Onset: 03-21-2023 03-21-2023 Episodic Mood disorders (20 sources) Mood disorders Onset: 05-10-2023 Resolved: 12-05-2024 05-10-2023 Mycoses (20 sources) Onychomycosis; Translations: [Tinea unguium] Onset: 07-04-2023 Resolved: 11-05-2024 07-04-2023 Episodic Nonmalignant breast conditions (3 sources) Unspecified lump in the right breast, upper inner quadrant; Translations: [UNS LUMP IN RT BREAST UPR INR QUAD] Onset: 05-04-2021 Episodic Nutritional deficiencies (20 sources) Cobalamin deficiency; Translations: [Deficiency of other specified B group vitamins] Onset: 08-14-2022 Resolved: 11-05-2024 05-10-2023 Episodic Other aftercare (20 sources) Post-discharge follow-up; Translations: [Encounter for follow-up examination after completed treatment for conditions other than malignant neoplasm] Onset: 10-11-2023 Resolved: 11-05-2024 10-11-2023 Episodic Other circulatory disease (20 sources) Suspected cerebrovascular accident; Translations: [Other specified symptoms and signs involving the circulatory and respiratory systems] Onset: 08-02-2023 Resolved: 11-05-2024 08-02-2023 Episodic Other connective tissue disease (20 sources) Muscle pain; Translations: [Myalgia, other site] Onset: 12-09-2023 12-09-2023 Episodic Other connective tissue disease (1 source) Myofascial pain; Translations: [Myalgia, other site] 08-03-2023 Episodic Other connective tissue disease (1 source) Myalgia, other site; Translations: [Myalgia, other site] Onset: 01-17-2024 Episodic Other gastrointestinal disorders (4 sources) Dysphagia, oropharyngeal phase; Translations: [DYSPHAGIA OROPHARYNGEAL PHASE] Onset: 08-22-2021 Episodic Other liver diseases (20 sources) Enzyme level - finding; Translations: [Transaminitis] Onset: 06-16-2022 Resolved: 09-20-2023 09-20-2023 Episodic Other lower respiratory disease (20 sources) Dyspnea; Translations: [Shortness of breath] Onset: 06-21-2023 Resolved: 11-05-2024 06-21-2023 Episodic Other lower respiratory disease (20 sources) Dyspnea on exertion; Translations: [Other forms of dyspnea] Onset: 08-02-2023 Resolved: 11-05-2024 08-02-2023 Episodic Other lower respiratory disease (20 sources) Restrictive lung disease due to kyphoscoliosis; Translations: [Other disorders of lung] Onset: 12-24-2023 Resolved: 11-05-2024 12-24-2023 Episodic Other lower respiratory disease (20 sources) Hypoxia; Translations: [Hypoxemia] Onset: 06-21-2023 06-21-2023 Episodic Other lower respiratory disease (1 source) Hypoxemia; Translations: [Hypoxemia] Onset: 06-21-2023 Episodic Other nervous system disorders (20 sources) Polyneuropathy; Translations: [Polyneuropathy, unspecified] Onset: 12-09-2023 Resolved: 11-05-2024 12-09-2023 Chronic Other nervous system disorders (20 sources) Numbness and tingling sensation of skin; Translations: [Anesthesia of skin] Onset: 12-09-2023 Resolved: 11-05-2024 12-09-2023 Episodic Other nervous system disorders (2 sources) Unsteadiness on feet; Translations: [Unsteadiness on feet] Onset: 03-07-2024 Episodic Other nervous system disorders (1 source) Paresthesia of skin; Translations: [Paresthesia of skin] Onset: 03-07-2024 Episodic Other nutritional; endocrine; and metabolic disorders (20 sources) Morbid obesity; Translations: [Morbid (severe) obesity due to excess calories] Onset: 05-10-2023 Resolved: 11-05-2024 05-10-2023 Chronic Pleurisy; pneumothorax; pulmonary collapse (20 sources) Loculated pleural effusion; Translations: [Pleural effusion, not elsewhere classified] Onset: 12-25-2023 Resolved: 11-05-2024 12-25-2023 Episodic Residual codes; unclassified (20 sources) History of colonoscopy; Translations: [Other specified postprocedural states] Onset: 07-04-2023 Resolved: 11-05-2024 07-04-2023 Episodic Residual codes; unclassified (2 sources) Estrogen receptor positive status [ER+]; Translations: [Estrogen receptor positive status (ER+)] Onset: 10-23-2023 Episodic Residual codes; unclassified (2 sources) Acquired absence of right breast and nipple; Translations: [Acquired absence of right breast and nipple] Onset: 11-08-2023 Episodic Residual codes; unclassified (19 sources) History of right mastectomy; Translations: [Acquired absence of right breast and nipple] Onset: 11-08-2023 11-08-2023 Episodic Spondylosis; intervertebral disc disorders; other back problems (20 sources) Pain in thoracic spine; Translations: [Cervicalgia] Onset: 02-12-2022 Episodic Unclassified (20 sources) Onset: 07-18-2022 Resolved: 08-31-2023 08-31-2023 Urinary tract infections (20 sources) Urinary tract infectious disease; Translations: [Urinary tract infection, site not specified] Onset: 03-21-2023 03-21-2023 Episodic Results Test Name Value Interpretation Reference Range Facility Office Visiton 01-19-2025 Follow-up visit [id number] Sophie Ly 1940 F Date Provider Department Center 01/19/[address] [facility] Family History Family Status - Relation Status Age at Mother Father Level of Service:81909 [place] OFFICE/OUTPATIENT ESTABLISHED MOD MDM 30 MIN Normal [facility] BASIC METABOLIC PANELon 12-27 Anion gap [Moles/Vol] 8 mmol/L Normal 5-15 [facility] Comment on above: Performed By: #### B MP ####[facility] ([facility])[address], [place] [address] VIR Calcium [Mass/Vol] 8.7 mg/dL Normal 8.5-10.5 [facility] Comment on above: Performed By: #### B MP ####[facility] ([facility])[address], [place] [address] VIR Chloride [Moles/Vol] 101 mmol/L Normal 98-109 [facility] Comment on above: Performed By: #### B MP ####[facility] ([facility])[address], [place] [address] VIR CO2 [Moles/Vol] 35 mmol/L High 22-32 [facility] Comment on above: Performed By: #### B MP ####[facility] ([facility])[address], [place] [address] VIR Creatinine [Mass/Vol] 1.62 mg/dL High 0.40-1.00 [facility] Comment on above: Result Comment: METH OD TRACEABLE TO IDMS STANDARD Performed By: #### B MP ####[facility] ([facility])[address], [place] [address] VIR GFR/1.73 sq M.predicted among non-blacks MDRD (S/P/Bld) [Vol rate/Area] 32 mL/min/{1.73_m2} Low >=60 [facility] Comment on above: Result Comment: Repo rted eGFR is based on the CKD-EPI 2020 equation that does not use a race coefficient. Performed By: #### B MP ####[facility] ([facility])[address], [place] [address] VIR Glucose [Mass/Vol] 132 mg/dL High 65-99 [facility] Comment on above: Performed By: #### B MP ####[facility] ([facility])[address], [place] [address] VIR Potassium [Moles/Vol] 4.2 mmol/L Normal 3.5-5.0 [facility] Comment on above: Performed By: #### B MP ####[facility] ([facility])[address], [place] [address] VIR Sodium [Moles/Vol] 144 mmol/L Normal 134-146 [facility] Comment on above: Performed By: #### B MP ####[facility] ([facility])[address], [place] [address] VIR Urea nitrogen [Mass/Vol] 29 mg/dL High 5-27 [facility] Comment on above: Performed By: #### B MP ####[facility] ([facility])[address], [place] [address] VIR CBC WITH AUTO DIFFERENTIALon 01-16-2025 Band form neutrophils/100 WBC (Bld) 7 % Normal [facility] Comment on above: Result Comment: This is an appended report. These results have been appended to a previously preliminary verified report. Performed By: #### C BCA ####[facility] ([facility])[address], [place] [address] VIR CELLAVISION BASOPHILS ABSOLUTE COUNT (10*3/UL) BY MANUAL COUNT 0.0 10*3/uL Normal 0.0-0.2 [facility] Comment on above: Result Comment: This is an appended report. These results have been appended to a previously preliminary verified report. Performed By: #### C BCA ####[facility] ([facility])[address], [place] [address] VIR CELLAVISION BASOPHILS RELATIVE PERCENT BY MANUAL COUNT 1 % Normal [facility] Comment on above: Result Comment: This is an appended report. These results have been appended to a previously preliminary verified report. Performed By: #### C BCA ####[facility] ([facility])[address], [place] [address] VIR CELLAVISION DIDIER CELLS IN BLOOD BY LIGHT MICROSCOPY 1+ Normal [facility] Comment on above: Result Comment: This is an appended report. These results have been appended to a previously preliminary verified report. Performed By: #### C BCA ####[facility] ([facility])[address], [place] [address] VIR CELLAVISION DIFFERENTIAL TYPE MANUAL DIFFERENTIAL Normal [facility] Comment on above: Result Comment: This is an appended report. These results have been appended to a previously preliminary verified report. Performed By: #### C BCA ####[facility] ([facility])[address], [place] [address] VIR CELLAVISION ELLIPTOCYTES IN BLOOD BY LIGHT MICROSCOPY 1+ Normal [facility] Comment on above: Result Comment: This is an appended report. These results have been appended to a previously preliminary verified report. Performed By: #### C BCA ####[facility] ([facility])[address], [place] [address] VIR CELLAVISION EOSINOPHILS ABSOLUTE COUNT (10*3/UL) BY MANUAL COUNT 0.1 10*3/uL Normal 0.0-0.4 [facility] Comment on above: Result Comment: This is an appended report. These results have been appended to a previously preliminary verified report. Performed By: #### C BCA ####[facility] ([facility])[address], [place] [address] VIR CELLAVISION EOSINOPHILS PERCENT BY MANUAL COUNT 2 % Normal [facility] Comment on above: Result Comment: This is an appended report. These results have been appended to a previously preliminary verified report. Performed By: #### C BCA ####[facility] ([facility])[address], [place] [address] VIR CELLAVISION LYMPHOCYTES ABSOLUTE COUNT (10*3/UL) BY MANUAL COUNT 0.6 10*3/uL Low 1.0-3.5 [facility] Comment on above: Result Comment: This is an appended report. These results have been appended to a previously preliminary verified report. Performed By: #### C BCA ####[facility] ([facility])[address], [place] [address] VIR CELLAVISION LYMPHOCYTES RELATIVE PERCENT BY MANUAL COUNT 13 % Normal [facility] Comment on above: Result Comment: This is an appended report. These results have been appended to a previously preliminary verified report. Performed By: #### C BCA ####[facility] ([facility])[address], [place] [address] VIR CELLAVISION MONOCYTES ABSOLUTE COUNT (10*3/UL) IN BLOOD BY MANUAL COUNT 0.3 10*3/uL Normal 0.0-0.9 [facility] Comment on above: Result Comment: This is an appended report. These results have been appended to a previously preliminary verified report. Performed By: #### C BCA ####[facility] ([facility])[address], [place] [address] VIR CELLAVISION MONOCYTES RELATIVE PERCENT BY MANUAL COUNT 6 % Normal [facility] Comment on above: Result Comment: This is an appended report. These results have been appended to a previously preliminary verified report. Performed By: #### C BCA ####[facility] ([facility])[address], [place] [address] VIR CELLAVISION NEUTROPHILS ABSOLUTE COUNT BY MANUAL COUNT 3.6 10*3/uL Normal 1.5-6.6 [facility] Comment on above: Result Comment: This is an appended report. These results have been appended to a previously preliminary verified report. Performed By: #### C BCA ####[facility] ([facility])[address], [place] [address] VIR CELLAVISION NEUTROPHILS RELATIVE PERCENT BY MANUAL COUNT 71 % Normal [facility] Comment on above: Result Comment: This is an appended report. These results have been appended to a previously preliminary verified report. Performed By: #### C BCA ####[facility] ([facility])[address], [place] [address] VIR CELLAVISION RBC FRAGMENTS 1+ Normal [facility] Comment on above: Result Comment: This is an appended report. These results have been appended to a previously preliminary verified report. Performed By: #### C BCA ####[facility] ([facility])[address], [place] [address] VIR Erythrocyte distribution width (RBC) [Ratio] 22.1 % High 11.5-15 [facility] Comment on above: Performed By: #### C BCA ####[facility] ([facility])[address], [place] [address] VIR Hematocrit (Bld) [Volume fraction] 35.8 % Normal 35-47 [facility] Comment on above: Performed By: #### C BCA ####[facility] ([facility])[address], [place] [address] VIR Hemoglobin (Bld) [Mass/Vol] 11.3 g/dL Low 11.7-15.5 [facility] Comment on above: Performed By: #### C BCA ####[facility] ([facility])[address], [place] [address] VIR MCH (RBC) [Entitic mass] 29.0 pg Normal 27-34 [facility] Comment on above: Performed By: #### C BCA ####[facility] ([facility])[address], [place] [address] VIR MCHC (RBC) [Mass/Vol] 31.6 g/dL Low 32-36 [facility] Comment on above: Performed By: #### C BCA ####[facility] ([facility])[address], [place] [address] VIR MCV (RBC) [Entitic vol] 92 fL Normal 80-100 [facility] Comment on above: Performed By: #### C BCA ####[facility] ([facility])[address], [place] [address] VIR Platelet mean volume (Bld) [Entitic vol] 8.5 fL Normal 7-12 [facility] Comment on above: Performed By: #### C BCA ####[facility] ([facility])[address], [place] [address] VIR Platelets (Bld) [#/Vol] 148 10*3/uL Low 150-450 [facility] Comment on above: Performed By: #### C BCA ####[facility] ([facility])[address], [place] [address] VIR RBC COUNT 3.89 X10E12/L Normal 3.8-5.2 [facility] Comment on above: Performed By: #### C BCA ####[facility] ([facility])[address], [place] [address] VIR WBC (Bld) [#/Vol] 4.6 10*3/uL Normal 4-11 [facility] Comment on above: Performed By: #### C BCA ####[facility] ([facility])[address], [place] [address] VIR THYROID PROFILE INCLUDES TSH FT4on 01-16-2025 Free T4 [Mass/Vol] 0.91 ng/dL Normal 0.61-1.60 [facility] Comment on above: Performed By: #### T HYR ####[facility] ([facility])[address], [place] [address] VIR TSH 3.96 uIU/mL Normal 0.49-4.67 [facility] Comment on above: Performed By: #### T HYR ####[facility] (TT)[address], [place] [address] VIR Orders Onlyon 01-15-2025 Orders Only [id number] Sophie Ly ana luisa L 1940 F Date Provider Department Center 01/15/2025 [id number], HISTORICAL BH CARD [facility] No family history on file Normal [facility] BEDSIDE GLUCOSEon 12-12-2024 Glucose [Mass/Vol] 156 mg/dL High 65-99 [facility] Comment on above: Performed By: #### B FCT #### [facility] ([id number]) [address] [place] [address] VIR Glucose [Mass/Vol] 80 mg/dL Normal 65-99 [facility] Comment on above: Performed By: #### B FCT #### [facility] ([id number]) [address] [place] [address] VIR CBC WITH AUTO DIFFERENTIALon 12-12-2024 BASOPHILS ABSOLUTE COUNT (10*3/UL) BY AUTOMATED COUNT 0.0 10*3/uL Normal 0.0-0.2 [facility] Comment on above: Performed By: #### B FCT #### [facility] ([id number]) [address] [place] [address] VIR BASOPHILS RELATIVE PERCENT BY AUTOMATED COUNT 0.5 % Normal [facility] Comment on above: Performed By: #### B FCT #### [facility] ([id number]) [address] [place] [address] VIR CELLAVISION DIFFERENTIAL TYPE AUTOMATED DIFFERENTIAL Normal [facility] Comment on above: Performed By: #### B FCT #### [facility] ([id number]) [address] [place] [address] VIR Eosinophils (Bld) [#/Vol] 0.2 10*3/uL Normal 0.0-0.4 [facility] Comment on above: Performed By: #### B FCT #### [facility] ([id number]) [address] [place] [address] VIR EOSINOPHILS RELATIVE PERCENT BY AUTOMATED COUNT 2.4 % Normal [facility] Comment on above: Performed By: #### B FCT #### [facility] ([id number]) [facility] [place] [address] VIR Erythrocyte distribution width (RBC) [Ratio] 19.1 % High 11.5-15 [facility] Comment on above: Performed By: #### B FCT #### [facility] ([id number]) [address] [place] [address] VIR Hematocrit (Bld) [Volume fraction] 31.3 % Low 35-47 [facility] Comment on above: Performed By: #### B FCT #### [facility] ([id number]) [facility] [place] [address] VIR Hemoglobin (Bld) [Mass/Vol] 10.3 g/dL Low 11.7-15.5 [facility] Comment on above: Performed By: #### B FCT #### [facility] ([id number]) [facility] [place] [address] VIR LYMPHOCYTES ABSOLUTE COUNT (10*3/UL) BY AUTOMATED COUNT 0.7 10*3/uL Low 1.0-3.5 [facility] Comment on above: Performed By: #### B FCT #### [facility] ([id number]) [address] [place] [address] VIR LYMPHOCYTES RELATIVE PERCENT BY AUTOMATED COUNT 9.2 % Normal [facility] Comment on above: Performed By: #### B FCT #### [facility] ([id number]) [address] [place] [address] VIR MCH (RBC) [Entitic mass] 28.6 pg Normal 27-34 [facility] Comment on above: Performed By: #### B FCT #### [facility] ([id number]) [address] [place] [address] VIR MCHC (RBC) [Mass/Vol] 32.9 g/dL Normal 32-36 [facility] Comment on above: Performed By: #### B FCT #### [facility] ([id number]) [facility] [place] [address] VIR MCV (RBC) [Entitic vol] 87 fL Normal 80-100 [facility] Comment on above: Performed By: #### B FCT #### [facility] ([id number]) [facility] [place] [address] VIR MONOCYTES ABSOLUTE COUNT (10*3/UL) BY AUTOMATED COUNT 0.4 10*3/uL Normal 0.0-0.9 [facility] Comment on above: Performed By: #### B FCT #### [facility] ([id number]) [address] [place] [address] VIR MONOCYTES RELATIVE PERCENT BY AUTOMATED COUNT 5.4 % Normal [facility] Comment on above: Performed By: #### B FCT #### [facility] ([id number]) [address] [place] [address] VIR NEUTROPHILS ABSOLUTE COUNT BY AUTOMATED COUNT 5.9 10*3/uL Normal 1.5-6.6 [facility] Comment on above: Performed By: #### B FCT #### [facility] ([id number]) [address] [place] [address] VIR NEUTROPHILS RELATIVE PERCENT BY AUTOMATED COUNT 82.5 % Normal [facility] Comment on above: Performed By: #### B FCT #### [facility] ([id number]) [address] [place] [address] VIR Platelet mean volume (Bld) [Entitic vol] 7.3 fL Normal 7-12 [facility] Comment on above: Performed By: #### B FCT #### [facility] ([id number]) [address] [place] [address] VIR Platelets (Bld) [#/Vol] 156 10*3/uL Normal 150-450 [facility] Comment on above: Performed By: #### B FCT #### [facility] ([id number]) [address] [place] [address] VIR RBC COUNT 3.60 X10E12/L Low 3.8-5.2 [facility] Comment on above: Performed By: #### B FCT #### [facility] ([id number]) [address] [facility] [place] [address] VIR WBC (Bld) [#/Vol] 7.1 10*3/uL Normal 4-11 [facility] Comment on above: Performed By: #### B FCT #### [facility] ([id number]) [address] [place] [address] VIR COMPREHENSIVE METABOLIC PANE Rigoberto 12-12-2024 Albumin [Mass/Vol] 3.0 g/dL Low 3.2-5.3 [facility] Comment on above: Performed By: #### B FCT #### [facility] ([id number]) [address] [place] [address] VIR ALP [Catalytic activity/Vol] 54 U/L Normal 39-130 [facility] Comment on above: Performed By: #### B FCT #### [facility] ([id number]) [address] [place] [address] VIR ALT [Catalytic activity/Vol] 19 U/L Normal <=31 [facility] Comment on above: Performed By: #### B FCT #### [facility] ([id number]) [address] [place] [address] VIR Anion gap [Moles/Vol] 5 mmol/L Normal 5-15 [facility] Comment on above: Performed By: #### B FCT #### [facility] ([id number]) [address] [place] [address] VIR AST [Catalytic activity/Vol] 17 U/L Normal <=41 [facility] Comment on above: Performed By: #### B FCT #### [facility] ([id number]) [address] [place] [address] VIR Bilirubin [Mass/Vol] 0.5 mg/dL Normal 0.3-1.2 [facility] Comment on above: Performed By: #### B FCT #### [facility] ([id number]) [address] [place] [address] VIR Calcium [Mass/Vol] 8.2 mg/dL Low 8.5-10.5 [facility] Comment on above: Performed By: #### B FCT #### [facility] ([id number]) [address] [place] [address] VIR Chloride [Moles/Vol] 102 mmol/L Normal 98-109 [facility] Comment on above: Performed By: #### B FCT #### [facility] ([id number]) [address] [place] [address] VIR CO2 [Moles/Vol] 35 mmol/L High 22-32 [facility] Comment on above: Performed By: #### B FCT #### [facility] ([id number]) [address] [place] [address] VIR Creatinine [Mass/Vol] 1.28 mg/dL High 0.40-1.00 [facility] Comment on above: Result Comment: METH OD TRACEABLE TO IDMS STANDARD Performed By: #### B FCT #### [facility] ([id number]) [address] [place] [address] VIR GFR/1.73 sq M.predicted among non-blacks MDRD (S/P/Bld) [Vol rate/Area] 42 mL/min/{1.73_m2} Low >=60 [facility] Comment on above: Result Comment: Repo rted eGFR is based on the CKD-EPI 2020 equation that does not use a race coefficient. Performed By: #### B FCT #### [facility] ([id number]) [address] [place] [address] VIR Glucose [Mass/Vol] 67 mg/dL Normal 65-99 [facility] Comment on above: Performed By: #### B FCT #### [facility] ([id number]) [address] [place] [address] VIR Potassium [Moles/Vol] 3.7 mmol/L Normal 3.5-5.0 [facility] Comment on above: Performed By: #### B FCT #### [facility] ([id number]) [address] [place] [address] VIR Protein [Mass/Vol] 5.2 g/dL Low 6.0-8.0 [facility] Comment on above: Performed By: #### B FCT #### [facility] ([id number]) [address] [facility] [place] [address] VIR Sodium [Moles/Vol] 142 mmol/L Normal 134-146 [facility] Comment on above: Performed By: #### B FCT #### [facility] ([id number]) [address] [place] [address] VIR Urea nitrogen [Mass/Vol] 26 mg/dL Normal 5-27 [facility] Comment on above: Performed By: #### B FCT #### [facility] ([id number]) [address] [place] [address] VIR MAGNESIUMon 12-12-2024 Magnesium [Mass/Vol] 2.0 mg/dL Normal 1.8-2.6 [facility] Comment on above: Performed By: #### B FCT #### [facility] ([id number]) [address] [place] [address] VIR BEDSIDE GLUCOSEon 12-11-2024 Glucose [Mass/Vol] 189 mg/dL High [address] [place] [address] Comment on above: Performed By: #### B EDG #### [facility] ([id number]) [address] [place] [address] VIR Glucose [Mass/Vol] 102 mg/dL High [address] [place] [address] Comment on above: Performed By: #### B EDG #### [facility] ([id number]) [address] [place] [address] VIR Glucose [Mass/Vol] 127 mg/dL High [address] [place] [address] Comment on above: Performed By: #### B EDG #### [facility] ([id number]) [address] [place] [address] VIR Glucose [Mass/Vol] 198 mg/dL High [address] [place] [address] Comment on above: Performed By: #### B EDG #### [facility] ([id number]) [address] [place] [address] VIR Glucose [Mass/Vol] 149 mg/dL High [address] [place] [address] Comment on above: Performed By: #### B EDG ####[facility] ([id number])[address] [place] [address] VIR CBC WITH AUTO DIFFERENTIALon 12-11-2024 BASOPHILS ABSOLUTE COUNT (10*3/UL) BY AUTOMATED COUNT 0.0 10*3/uL Normal 0.0-0.2 [facility] Comment on above: Performed By: #### C BCA ####[facility] ([id number])[address] [place] [address] VIR BASOPHILS RELATIVE PERCENT BY AUTOMATED COUNT 0.5 % Normal [facility] Comment on above: Performed By: #### C BCA ####[facility] ([id number])[address] [place] [address] VIR CELLAVISION DIFFERENTIAL TYPE AUTOMATED DIFFERENTIAL Normal [facility] Comment on above: Performed By: #### C BCA ####[facility] ([id number])[address] [place] [address] VIR Eosinophils (Bld) [#/Vol] 0.0 10*3/uL Normal 0.0-0.4 [facility] Comment on above: Performed By: #### C BCA ####[facility] ([id number])[address] [place] [address] VIR EOSINOPHILS RELATIVE PERCENT BY AUTOMATED COUNT 0.5 % Normal [facility] Comment on above: Performed By: #### C BCA ####[facility] ([id number])[address] [place] [address] VIR Erythrocyte distribution width (RBC) [Ratio] 19.1 % High 11.5-15 [facility] Comment on above: Performed By: #### C BCA ####[facility] ([id number])[address] [place] [address] VIR Hematocrit (Bld) [Volume fraction] 30.5 % Low 35-47 [facility] Comment on above: Performed By: #### C BCA ####[facility] ([id number])[address] [place] [address] VIR Hemoglobin (Bld) [Mass/Vol] 9.9 g/dL Low 11.7-15.5 [facility] Comment on above: Performed By: #### C BCA ####[facility] ([id number])[address] [place] [address] VIR LYMPHOCYTES ABSOLUTE COUNT (10*3/UL) BY AUTOMATED COUNT 0.7 10*3/uL Low 1.0-3.5 [facility] Comment on above: Performed By: #### C BCA ####[facility] ([id number])[address] [place] [address] VIR LYMPHOCYTES RELATIVE PERCENT BY AUTOMATED COUNT 10.5 % Normal [facility] Comment on above: Performed By: #### C BCA ####[facility] ([id number])[address] [facility] [place] [address] VIR MCH (RBC) [Entitic mass] 28.2 pg Normal 27-34 [facility] Comment on above: Performed By: #### C BCA ####[facility] ([id number])[address] [facility] [place] [address] VIR MCHC (RBC) [Mass/Vol] 32.4 g/dL Normal 32-36 [facility] Comment on above: Performed By: #### C BCA ####[facility] ([id number])[address] [facility] [place] [address] VIR MCV (RBC) [Entitic vol] 87 fL Normal 80-100 [facility] Comment on above: Performed By: #### C BCA ####[facility] ([id number])[address] [place] [address] VIR MONOCYTES ABSOLUTE COUNT (10*3/UL) BY AUTOMATED COUNT 0.5 10*3/uL Normal 0.0-0.9 [facility] Comment on above: Performed By: #### C BCA ####[facility] ([id number])[address] [facility] [place] [address] VIR MONOCYTES RELATIVE PERCENT BY AUTOMATED COUNT 7.5 % Normal [facility] Comment on above: Performed By: #### C BCA ####[facility] ([id number])[address] [place] [address] VIR NEUTROPHILS ABSOLUTE COUNT BY AUTOMATED COUNT 5.1 10*3/uL Normal 1.5-6.6 [facility] Comment on above: Performed By: #### C BCA ####[facility] ([id number])[address] [place] [address] VIR NEUTROPHILS RELATIVE PERCENT BY AUTOMATED COUNT 81.0 % Normal [facility] Comment on above: Performed By: #### C BCA ####[facility] ([id number])[address] [facility] [place] [address] VIR Platelet mean volume (Bld) [Entitic vol] 7.9 fL Normal 7-12 [facility] Comment on above: Performed By: #### C BCA ####[facility] ([id number])[address] [facility] [place] [address] VIR Platelets (Bld) [#/Vol] 148 10*3/uL Low 150-450 [facility] Comment on above: Performed By: #### C BCA ####[facility] ([id number])[address] [facility] [place] [address] VIR RBC COUNT 3.51 X10E12/L Low 3.8-5.2 [facility] Comment on above: Performed By: #### C BCA ####[facility] ([id number])[address] [facility] [place] [address] VIR WBC (Bld) [#/Vol] 6.3 10*3/uL Normal 4-11 [facility] Comment on above: Performed By: #### C BCA ####[facility] ([id number])[address] [facility] [place] [address] VIR COMPREHENSIVE METABOLIC PANE Rigoberto 12-11-2024 Albumin [Mass/Vol] 3.2 g/dL Normal 3.2-5.3 [facility] Comment on above: Performed By: #### C MP ####[facility] ([id number])[address] [facility] [place] [address] VIR ALP [Catalytic activity/Vol] 58 U/L Normal 39-130 [facility] Comment on above: Performed By: #### C MP ####[facility] ([id number])[address] [facility] [place] [address] VIR ALT [Catalytic activity/Vol] 21 U/L Normal <=31 [facility] Comment on above: Performed By: #### C MP ####[facility] ([id number])[address] [facility] [place] [address] VIR Anion gap [Moles/Vol] 3 mmol/L Low 5-15 [facility] Comment on above: Performed By: #### C MP ####[facility] ([id number])[address] [facility] SCH[facility]ER[facility] [place] [address] VIR AST [Catalytic activity/Vol] 15 U/L Normal <=41 [facility] Comment on above: Performed By: #### C MP ####[facility] ([id number])[address] [facility] [place] [address] VIR Bilirubin [Mass/Vol] 0.5 mg/dL Normal 0.3-1.2 [facility] Comment on above: Performed By: #### C MP ####[facility] ([id number])[address] [facility]ENTERLORE SCHAFER[place] [address] VIR Calcium [Mass/Vol] 8.3 mg/dL Low 8.5-10.5 [facility] Comment on above: Performed By: #### C MP ####[facility] ([id number])[address] [facility] [place] [address] VIR Chloride [Moles/Vol] 101 mmol/L Normal 98-109 [facility] Comment on above: Performed By: #### C MP ####[facility] ([id number])[address] [facility] [place] [address] VIR CO2 [Moles/Vol] 37 mmol/L High 22-32 [facility] Comment on above: Performed By: #### C MP ####[facility] ([id number])[address] [facility] [place] [address] VIR Creatinine [Mass/Vol] 1.34 mg/dL High 0.40-1.00 [facility] Comment on above: Result Comment: METH OD TRACEABLE TO IDMS STANDARD Performed By: #### C MP ####[facility] ([id number])[address] [facility] [place] [address] VIR GFR/1.73 sq M.predicted among non-blacks MDRD (S/P/Bld) [Vol rate/Area] 40 mL/min/{1.73_m2} Low >=60 [facility] Comment on above: Result Comment: Repo rted eGFR is based on the CKD-EPI 2020 equation that does not use a race coefficient. Performed By: #### C MP ####[facility] ([id number])[address] [place] [address] VIR Glucose [Mass/Vol] 149 mg/dL High 65-99 [facility] Comment on above: Performed By: #### C MP ####[facility] ([id number])[address] [place] [address] VIR Potassium [Moles/Vol] 3.5 mmol/L Normal 3.5-5.0 [facility] Comment on above: Performed By: #### C MP ####[facility] ([id number])[address] [facility] [address] VIR Protein [Mass/Vol] 5.4 g/dL Low 6.0-8.0 [facility] Comment on above: Performed By: #### C MP ####[facility] ([id number])[address] [place] [address] VIR Sodium [Moles/Vol] 141 mmol/L Normal 134-146 [facility] Comment on above: Performed By: #### C MP ####[facility] ([id number])[address] [place] [address] VIR Urea nitrogen [Mass/Vol] 29 mg/dL High 5-27 [facility] Comment on above: Performed By: #### C MP ####[facility] ([id number])[address] [place] [address] CHEST WO CONTon 5 CT CHEST WO CONT CT CHEST WO CONT History: Assess apical pneumothorax Procedure: Standard CT of the chest without contrast was performed. Automatic exposure control was utilized for dosage reduction technique. Appropriate two-dimensional reconstructions were obtained. All CT scans at this facility use dose modulation, iterative reconstruction, and/or weight based dosing when appropriate to reduce radiation dose to as low as reasonably achievable.All CT scans at this facility use dose modulation, iterative reconstruction, and/or weight based dosing when appropriate to reduce radiation dose to as low as reasonably achievable. Findings: Comparison is made to 06/04/2024. CT chest without contrast demonstrates enlargement of the cardiopericardial silhouette with small anterior pericardial effusion. Coronary artery calcification is present. Small right pleural effusion has decreased in volume since the prior study. Hazy opacities in the upper lobes may be a small areas of groundglass opacity that are difficult to quantitate. Airspace disease is present within the right lower lobe and may be related to the small effusion. There is no obvious pneumothorax, pneumomediastinum, or soft tissue gas. Impression: There is no pneumothorax. Small pleural effusion is likely not amenable to thoracentesis. Hazy groundglass opacities in the lungs, especially in the right lower lobe may be infectious in etiology. There is also radhames airspace disease in the dependent portion of the right lower lobe, possibly related to the effusion, that could be atelectasis. Follow-up imaging is suggested to hopefully document clearance of these abnormalities. Finalized by Jona Galan MD on 12/11/2024 11:01 PM Normal [facility] HEMOGLOBIN A1Con 12-11-2024 Glucose [Mass/Vol] 151 mg/dL Normal [facility] Comment on above: Performed By: #### B EDG #### [facility] ([id number]) [facility] [place] [address] VIR HbA1c (Bld) [Mass fraction] 6.9 % High 4.4-5.6 [facility] Comment on above: Result Comment: ADA Guidelines Result HgbA1c Normal : less than 5.7 % Prediabetes : 5.7 % to 6.4 % Diabetes : > 6.4 % Use with caution in patients with abnormal hemoglobin variants as the half-life of red blood cells and in vivo glycation rates are affected. Performed By: #### B EDG #### [facility] ([id number]) [address] [place] [address] VIR MAGNESIUMon 12-11-2024 Magnesium [Mass/Vol] 2.2 mg/dL Normal 1.8-2.6 [facility] Comment on above: Performed By: #### B EDG #### [facility] ([id number]) [address] [place] [address] VIR Magnesium [Mass/Vol] 1.7 mg/dL Low 1.8-2.6 [facility] Comment on above: Performed By: #### M G ####[facility] ([id number])[address] [place] [address] VIR POTASSIUMon 12-11-2024 Potassium [Moles/Vol] 4.3 mmol/L Normal 3.5-5.0 [facility] Comment on above: Performed By: #### B EDG #### [facility] ([id number]) [facility] [place] [address] VIR TROPONIN I, HIGH SENSITIVITY on 12-11-2024 TROPONIN I, HIGH SENSITIVITY 16 ng/L High <16 [facility] Comment on above: Order Comment: [place] tions of hs-Troponin may be due to causesother than myocardial ischemia.Recommend serial hs-Troponin testing be performed.For the initial evaluation and management of chestpain patients, refer to the algorithms linked below.Emergency Patient:[email or web address] Performed By: #### B EDG #### [facility] ([id number]) [facility] [place] [address] VIR XR CHEST 1 VWon 12-11-2024 XR CHEST 1 VW XR CHEST 1 VW XR CHEST 1 VW HISTORY: Pneumothorax COMPARISON: 12/10/2024 FINDINGS: AP portable erect film obtained. Unchanged, enlarged cardiac silhouette. Similar appearance of 3 to 4 mm right apical pneumothorax. No pleural effusion. Increased hazy/linear opacities in the right lower lung zone. IMPRESSION: 1. Similar appearance of 3-4 mm right apical pneumothorax. 2. Increased hazy/linear opacities in the right lower lung zone, most likely atelectasis. Finalized by Prakash Jackson MD on 12/11/2024 8:15 AM Normal [facility] BEDSIDE GLUCOSEon 12-10-2024 Glucose [Mass/Vol] 181 mg/dL High [address] [place] [address] Comment on above: Performed By: #### B EDG ####[facility] ([id number])[address] [place] [address] VIR Glucose [Mass/Vol] 292 mg/dL High [address] [place] [address] Comment on above: Performed By: #### B EDG ####[facility] ([id number])[address] [place] [address] VIR Glucose [Mass/Vol] 227 mg/dL [address] Comment on above: Performed By: #### B EDG ####[facility] ([id number])[address] [place] [address] VIR Glucose [Mass/Vol] 269 mg/dL High [address] [place] [address] Comment on above: Performed By: #### B EDG ####[facility] ([id number])[address] [place] [address] VIR Glucose [Mass/Vol] 125 mg/dL High [address] [place] [address] Comment on above: Performed By: #### B EDG #### [facility] ([id number]) [address] [place] [address] VIR CBC WITH AUTO DIFFERENTIALon 12-10-2024 BASOPHILS ABSOLUTE COUNT (10*3/UL) BY AUTOMATED COUNT 0.0 10*3/uL Normal 0.0-0.2 [facility] Comment on above: Performed By: #### B EDG #### [facility] ([id number]) [address] [place] [address] VIR BASOPHILS RELATIVE PERCENT BY AUTOMATED COUNT 0.4 % Normal [facility] Comment on above: Performed By: #### B EDG #### [facility] ([id number]) [address] [place] [address], [place] [address] VIR CELLAVISION DIFFERENTIAL TYPE AUTOMATED DIFFERENTIAL Normal [facility] Comment on above: Performed By: #### B EDG #### [facility] ([id number]) [address] [place] [address] VIR Eosinophils (Bld) [#/Vol] 0.0 10*3/uL Normal 0.0-0.4 [facility] Comment on above: Performed By: #### B EDG #### [facility] ([id number]) [address] [place] [address], [place] [address] VIR EOSINOPHILS RELATIVE PERCENT BY AUTOMATED COUNT 0.6 % Normal [facility] Comment on above: Performed By: #### B EDG #### [facility] ([id number]) [address] [place] [address], [place] [address] VIR Erythrocyte distribution width (RBC) [Ratio] 19.0 % High 11.5-15 [facility] Comment on above: Performed By: #### B EDG #### [facility] ([id number]) [address] [place] [address], [place] [address] VIR Hematocrit (Bld) [Volume fraction] 29.4 % Low 35-47 [facility] Comment on above: Performed By: #### B EDG #### [facility] ([id number]) [address] [place] [address], [place] [address] VIR Hemoglobin (Bld) [Mass/Vol] 9.8 g/dL Low 11.7-15.5 [facility] Comment on above: Performed By: #### B EDG #### [facility] ([id number]) [address] [place] [address], [place] [address] VIR LYMPHOCYTES ABSOLUTE COUNT (10*3/UL) BY AUTOMATED COUNT 0.7 10*3/uL Low 1.0-3.5 [facility] Comment on above: Performed By: #### B EDG #### [facility] ([id number]) [facility] [place] [address] VIR LYMPHOCYTES RELATIVE PERCENT BY AUTOMATED COUNT 12.7 % Normal [facility] Comment on above: Performed By: #### B EDG #### [facility] ([id number]) [facility] [place] [address] VIR MCH (RBC) [Entitic mass] 28.9 pg Normal 27-34 [facility] Comment on above: Performed By: #### B EDG #### [facility] ([id number]) [facility] [place] [address] VIR MCHC (RBC) [Mass/Vol] 33.4 g/dL Normal 32-36 [facility] Comment on above: Performed By: #### B EDG #### [facility] ([id number]) [address] [place] [address], [place] [address] VIR MCV (RBC) [Entitic vol] 87 fL Normal 80-100 [facility] Comment on above: Performed By: #### B EDG #### [facility] ([id number]) [address] [place] [address], [place] [address] VIR MONOCYTES ABSOLUTE COUNT (10*3/UL) BY AUTOMATED COUNT 0.4 10*3/uL Normal 0.0-0.9 [facility] Comment on above: Performed By: #### B EDG #### [facility] ([id number]) [address] [place] [address] VIR MONOCYTES RELATIVE PERCENT BY AUTOMATED COUNT 7.1 % Normal [facility] Comment on above: Performed By: #### B EDG #### [facility] ([id number]) [address] [place] [address], [place] [address] VIR NEUTROPHILS ABSOLUTE COUNT BY AUTOMATED COUNT 4.5 10*3/uL Normal 1.5-6.6 [facility] Comment on above: Performed By: #### B EDG #### [facility] ([id number]) [address] [place] [address] VIR NEUTROPHILS RELATIVE PERCENT BY AUTOMATED COUNT 79.2 % Normal [facility] Comment on above: Performed By: #### B EDG #### [facility] ([id number]) [address] [place] [address] VIR Platelet mean volume (Bld) [Entitic vol] 7.9 fL Normal 7-12 [facility] Comment on above: Performed By: #### B EDG #### [facility] ([id number]) [address] [place] [address] VIR Platelets (Bld) [#/Vol] 123 10*3/uL Low 150-450 [facility] Comment on above: Performed By: #### B EDG #### [facility] ([id number]) [address] [place] [address] VIR RBC COUNT 3.40 X10E12/L Low 3.8-5.2 [facility] Comment on above: Performed By: #### B EDG #### [facility] ([id number]) [address] [place] [address] VIR WBC (Bld) [#/Vol] 5.7 10*3/uL Normal 4-11 [facility] Comment on above: Performed By: #### B EDG #### [facility] ([id number]) [address] [place] [address] VIR COMPREHENSIVE METABOLIC PANE Rigoberto 12-10-2024 Albumin [Mass/Vol] 3.2 g/dL Normal 3.2-5.3 [facility] Comment on above: Performed By: #### B EDG #### [facility] ([id number]) [address] [place] [address] VIR ALP [Catalytic activity/Vol] 55 U/L Normal 39-130 [facility] Comment on above: Performed By: #### B EDG #### [facility] ([id number]) [address] [place] [address] VIR ALT [Catalytic activity/Vol] 22 U/L Normal <=31 [facility] Comment on above: Performed By: #### B EDG #### [facility] ([id number]) [address] [place] [address] VIR Anion gap [Moles/Vol] 5 mmol/L Normal 5-15 [facility] Comment on above: Performed By: #### B EDG #### [facility] ([id number]) [address] [place] [address] VIR AST [Catalytic activity/Vol] 14 U/L Normal <=41 [facility] Comment on above: Performed By: #### B EDG #### [facility] ([id number]) [address] [place] [address] VIR Bilirubin [Mass/Vol] 0.5 mg/dL Normal 0.3-1.2 [facility] Comment on above: Performed By: #### B EDG #### [facility] ([id number]) [address] [place] [address] VIR Calcium [Mass/Vol] 8.0 mg/dL Low 8.5-10.5 [facility] Comment on above: Performed By: #### B EDG #### [facility] ([id number]) [address] [place] [address] VIR Chloride [Moles/Vol] 101 mmol/L Normal 98-109 [facility] Comment on above: Performed By: #### B EDG #### [facility] ([id number]) [address] [place] [address] VIR CO2 [Moles/Vol] 34 mmol/L High 22-32 [facility] Comment on above: Performed By: #### B EDG #### [facility] ([id number]) [address] [place] [address] VIR Creatinine [Mass/Vol] 1.49 mg/dL High 0.40-1.00 [facility] Comment on above: Result Comment: METH OD TRACEABLE TO IDMS STANDARD Performed By: #### B EDG #### [facility] ([id number]) [address] [place] [address] VIR GFR/1.73 sq M.predicted among non-blacks MDRD (S/P/Bld) [Vol rate/Area] 35 mL/min/{1.73_m2} Low >=60 [facility] Comment on above: Result Comment: Repo rted eGFR is based on the CKD-EPI 2020 equation that does not use a race coefficient. Performed By: #### B EDG #### [facility] ([id number]) [address] [place] [address] VIR Glucose [Mass/Vol] 137 mg/dL High 65-99 [facility] Comment on above: Performed By: #### B EDG #### [facility] ([id number]) [address] [place] [address] VIR Potassium [Moles/Vol] 3.4 mmol/L Low 3.5-5.0 [facility] Comment on above: Performed By: #### B EDG #### [facility] ([id number]) [address] [place] [address] VIR Protein [Mass/Vol] 5.3 g/dL Low 6.0-8.0 [facility] Comment on above: Performed By: #### B EDG #### [facility] ([id number]) [address] [place] [address] VIR Sodium [Moles/Vol] 140 mmol/L Normal 134-146 [facility] Comment on above: Performed By: #### B EDG #### [facility] ([id number]) [address] [place] [address] VIR Urea nitrogen [Mass/Vol] 30 mg/dL High 5-27 [facility] Comment on above: Performed By: #### B EDG #### [facility] ([id number]) [address] [place] [address] VIR MAGNESIUMon 12-10-2024 Magnesium [Mass/Vol] 1.7 mg/dL Low 1.8-2.6 [facility] Comment on above: Performed By: #### B EDG #### [facility] ([id number]) [address] [place] [address] VIR XR CHEST 1 VWon 12-10-2024 XR CHEST 1 VW XR CHEST 1 VW CHEST 1 VIEW HISTORY: Right pneumothorax COMPARISON: 12/10/2024, 11:55 AM FINDINGS: Unchanged small right apical pneumothorax measuring 0.5 cm. No left pneumothorax. No pleural effusions or airspace disease. Stable cardiomediastinal silhouette. IMPRESSION: No significant interval change. Finalized by Lanre Sanchez MD on 12/10/2024 9:37 PM Normal [facility] XR CHEST 1 VW XR CHEST 1 VW XR CHEST 1 VW Clinical Information: s/p thora Comparison: 12/07/2024. IMPRESSION: * Small right apical pneumothorax measuring 4 mm. * Vascular congestive changes with basilar atelectasis, improved right effusion. * Cardiomegaly. THIS REPORT CONTAINS A SIGNIFICANT RESULT AND/OR RECOMMENDATION, WHICH REQUIRES THE ATTENTION OF THE LICENSE CAREGIVER RESPONSIBLE FOR THIS PATIENT. I HAVE SPECIFICALLY DESIGNATED THIS REPORT TO BE TELEPHONED BY THE RADIOLOGY DEPARTMENT. Finalized by Jose Alfredo Garcia MD on 12/10/2024 12:36 PM Normal [facility] ALBUMIN, FLUIDon 12-09-2024 ALBUMIN, FLUID 1.9 g/dL Normal [facility] Comment on above: Order Comment: The r eference interval and other method performance specifications are unavailable for this body fluid. Comparison of this result to serum or plasma is recommended. Performed By: #### F ALB #### [facility] ([facility]) [address] [place] [address] VIR ANAEROBIC CULTUREon 12-10-19 25 ANAEROBIC CULTURE CULTURE RESULTS NO GROWTH 5 DAYS Normal [facility] Comment on above: Performed By: #### B EDG #### [facility] ([id number]) [address] [place] [address] VIR BEDSIDE GLUCOSEon 12-09-2024 Glucose [Mass/Vol] 233 mg/dL High [address] [place] [address] Comment on above: Performed By: #### B EDG #### [facility] ([id number]) [address] [place] [address] VIR Glucose [Mass/Vol] 328 mg/dL High [address] [place] [address] Comment on above: Performed By: #### B EDG #### [facility] ([id number]) [address] [place] [address] VIR Glucose [Mass/Vol] 167 mg/dL High [address] [place] [address] Comment on above: Performed By: #### B EDG #### [facility] ([id number]) [address] [place] [address] VIR Glucose [Mass/Vol] 198 mg/dL [address] Comment on above: Performed By: #### B EDG #### [facility] ([id number]) [address] [place] [address] VIR Glucose [Mass/Vol] 154 mg/dL [address] Comment on above: Performed By: #### B EDG #### [facility] ([id number]) [address] [place] [address] VIR BODY FLUID CELL COUNTon 11-[address] 165 /uL Normal [facility] Comment on above: Order Comment: Refer ence values for this fluid type are undefined, as fluid accumulation is considered abnormal. Performed By: #### B FCT #### [facility] ([id number]) [facility] [place] [address] 280 /uL Normal [facility] Comment on above: Order Comment: Refer ence values for this fluid type are undefined, as fluid accumulation is considered abnormal. Performed By: #### B FCT #### [facility] ([id number]) [address] [place] [address] VIR PM FLUID CLARITY Hazy Normal [facility] Comment on above: Order Comment: Refer ence values for this fluid type are undefined, as fluid accumulation is considered abnormal. Performed By: #### B FCT #### [facility] ([id number]) [facility] [place] [address] VIR PM FLUID COLOR Yellow Normal [facility] Comment on above: Order Comment: Refer ence values for this fluid type are undefined, as fluid accumulation is considered abnormal. Performed By: #### B FCT #### [facility] ([id number]) [address] [place] [address] VIR BODY FLUID CULTUREon 025 BODY FLUID CULTURE CULTURE RESULTS NO GROWTH 5 DAYS GRAM STAIN White Blood Cells Present No organisms seen On Concentrated Smear Normal [facility] Comment on above: Performed By: #### B EDG #### [facility] ([id number]) [address] [place] [address] VIR CBC WITH AUTO DIFFERENTIALon 12-09-2024 BASOPHILS ABSOLUTE COUNT (10*3/UL) BY AUTOMATED COUNT 0.0 10*3/uL Normal 0.0-0.2 [facility] Comment on above: Performed By: #### C BCA #### [facility] ([id number]) [address] [place] [address] VIR BASOPHILS RELATIVE PERCENT BY AUTOMATED COUNT 0.5 % Normal [facility] Comment on above: Performed By: #### C BCA #### [facility] ([id number]) [address] [place] [address] VIR CELLAVISION DIFFERENTIAL TYPE AUTOMATED DIFFERENTIAL Normal [facility] Comment on above: Performed By: #### C BCA #### [facility] ([id number]) [address] [place] [address] VIR Eosinophils (Bld) [#/Vol] 0.0 10*3/uL Normal 0.0-0.4 [facility] Comment on above: Performed By: #### C BCA #### [facility] ([id number]) [address] [place] [address] VIR EOSINOPHILS RELATIVE PERCENT BY AUTOMATED COUNT 0.0 % Normal [facility] Comment on above: Performed By: #### C BCA #### [facility] ([id number]) [address] [place] [address] VIR Erythrocyte distribution width (RBC) [Ratio] 19.0 % High 11.5-15 [facility] Comment on above: Performed By: #### C BCA #### [facility] ([id number]) [address] [place] [address] VIR Hematocrit (Bld) [Volume fraction] 34.4 % Low 35-47 [facility] Comment on above: Performed By: #### C BCA #### [facility] ([id number]) [address] [place] [address] VIR Hemoglobin (Bld) [Mass/Vol] 11.2 g/dL Low 11.7-15.5 [facility] Comment on above: Performed By: #### C BCA #### [facility] ([id number]) [facility] [place] [address] VIR LYMPHOCYTES ABSOLUTE COUNT (10*3/UL) BY AUTOMATED COUNT 0.3 10*3/uL Low 1.0-3.5 [facility] Comment on above: Performed By: #### C BCA #### [facility] ([id number]) [address] [place] [address] VIR LYMPHOCYTES RELATIVE PERCENT BY AUTOMATED COUNT 4.4 % Normal [facility] Comment on above: Performed By: #### C BCA #### [facility] ([id number]) [address] [place] [address] VIR MCH (RBC) [Entitic mass] 28.4 pg Normal 27-34 [facility] Comment on above: Performed By: #### C BCA #### [facility] ([id number]) [address] [place] [address] VIR MCHC (RBC) [Mass/Vol] 32.7 g/dL Normal 32-36 [facility] Comment on above: Performed By: #### C BCA #### [facility] ([id number]) [address] [place] [address] VIR MCV (RBC) [Entitic vol] 87 fL Normal 80-100 [facility] Comment on above: Performed By: #### C BCA #### [facility] ([id number]) [facility] [place] [address] VIR MONOCYTES ABSOLUTE COUNT (10*3/UL) BY AUTOMATED COUNT 0.1 10*3/uL Normal 0.0-0.9 [facility] Comment on above: Performed By: #### C BCA #### [facility] ([id number]) [facility] [place] [address] VIR MONOCYTES RELATIVE PERCENT BY AUTOMATED COUNT 2.1 % Normal [facility] Comment on above: Performed By: #### C BCA #### [facility] ([id number]) [facility] [place] [address] VIR NEUTROPHILS ABSOLUTE COUNT BY AUTOMATED COUNT 5.6 10*3/uL Normal 1.5-6.6 [facility] Comment on above: Performed By: #### C BCA #### [facility] ([id number]) [address] [place] [address] VIR NEUTROPHILS RELATIVE PERCENT BY AUTOMATED COUNT 93.0 % Normal [facility] Comment on above: Performed By: #### C BCA #### [facility] ([id number]) [address] [place] [address] VIR Platelet mean volume (Bld) [Entitic vol] 7.6 fL Normal 7-12 [facility] Comment on above: Performed By: #### C BCA #### [facility] ([id number]) [facility] [place] [address] VIR Platelets (Bld) [#/Vol] 156 10*3/uL Normal 150-450 [facility] Comment on above: Performed By: #### C BCA #### [facility] ([id number]) [address] [place] [address] VIR RBC COUNT 3.96 X10E12/L Normal 3.8-5.2 [facility] Comment on above: Performed By: #### C BCA #### [facility] ([id number]) [address] [place] [address] VIR WBC (Bld) [#/Vol] 6.0 10*3/uL Normal 4-11 [facility] Comment on above: Performed By: #### C BCA #### [facility] ([id number]) [address] [place] [address] VIR COMPREHENSIVE METABOLIC PANE Rigoberto 12-09-2024 Albumin [Mass/Vol] 3.9 g/dL Normal 3.2-5.3 [facility] Comment on above: Performed By: #### B EDG #### [facility] ([id number]) [address] [place] [address] VIR ALP [Catalytic activity/Vol] 63 U/L Normal 39-130 [facility] Comment on above: Performed By: #### B EDG #### [facility] ([id number]) [address] [place] [address] VIR ALT [Catalytic activity/Vol] 30 U/L Normal <=31 [facility] Comment on above: Performed By: #### B EDG #### [facility] ([id number]) [address] [place] [address] VIR Anion gap [Moles/Vol] 3 mmol/L Low 5-15 [facility] Comment on above: Performed By: #### B EDG #### [facility] ([id number]) [address] [place] [address] VIR AST [Catalytic activity/Vol] 21 U/L Normal <=41 [facility] Comment on above: Performed By: #### B EDG #### [facility] ([id number]) [address] [place] [address] VIR Bilirubin [Mass/Vol] 0.6 mg/dL Normal 0.3-1.2 [facility] Comment on above: Performed By: #### B EDG #### [facility] ([id number]) [address] [place] [address] VIR Calcium [Mass/Vol] 9.0 mg/dL Normal 8.5-10.5 [facility] Comment on above: Performed By: #### B EDG #### [facility] ([id number]) [address] [place] [address] VIR Chloride [Moles/Vol] 98 mmol/L Normal 98-109 [facility] Comment on above: Performed By: #### B EDG #### [facility] ([id number]) [address] [place] [address] VIR CO2 [Moles/Vol] 38 mmol/L High 22-32 [facility] Comment on above: Performed By: #### B EDG #### [facility] ([id number]) [address] [place] [address] VIR Creatinine [Mass/Vol] 1.41 mg/dL High 0.40-1.00 [facility] Comment on above: Result Comment: METH OD TRACEABLE TO IDMS STANDARD Performed By: #### B EDG #### [facility] ([id number]) [address] [place] [address] VIR GFR/1.73 sq M.predicted among non-blacks MDRD (S/P/Bld) [Vol rate/Area] 37 mL/min/{1.73_m2} Low >=60 [facility] Comment on above: Result Comment: Repo rted eGFR is based on the CKD-EPI 2020 equation that does not use a race coefficient. Performed By: #### B EDG #### [facility] ([id number]) [address] [place] [address] VIR Glucose [Mass/Vol] 173 mg/dL High 65-99 [facility] Comment on above: Performed By: #### B EDG #### [facility] ([id number]) [facility] [place] [address] VIR Potassium [Moles/Vol] 3.9 mmol/L Normal 3.5-5.0 [facility] Comment on above: Performed By: #### B EDG #### [facility] ([id number]) [address] [place] [address] VIR Protein [Mass/Vol] 6.6 g/dL Normal 6.0-8.0 [facility] Comment on above: Performed By: #### B EDG #### [facility] ([id number]) [facility] [place] [address] VIR Sodium [Moles/Vol] 139 mmol/L Normal 134-146 [facility] Comment on above: Performed By: #### B EDG #### [facility] ([id number]) [address] [place] [address] VIR Urea nitrogen [Mass/Vol] 32 mg/dL High 5-27 [facility] Comment on above: Performed By: #### B EDG #### [facility] ([id number]) [address] [place] [address] VIR FUNGAL CULTURE INCLUDES CHANDANA AL SMEARon 12-09-2024 FUNGAL CULTURE INCLUDES FUNGAL SMEAR CULTURE RESULTS NO FUNGUS ISOLATED AFTER 4 WEEKS FUNGAL SMEAR No fungal elements seen On Concentrated Smear Normal [facility] Comment on above: Performed By: #### B EDG #### [facility] ([id number]) [facility] [place] [address] VIR IR THORACENTESIS W GUIDE RTo n 12-09-2024 IR THORACENTESIS W GUIDE RT IR THORACENTESIS W GUIDE RT History: 84-year-old female with right pleural effusion Procedure: Ultrasound guided right thoracentesis Interventional radiologist: Dr. Chaim Wells. Estimated blood loss: Minimal. Technique and findings: Informed consent was obtained from the patient after description of procedure, risks and benefits. Patient was transferred to the procedure room and final verification performed. Limited scanning with ultrasound in the upright position demonstrated a right pleural effusion. The right back was marked with ultrasound and then sterilely prepped and draped. Local anesthesia with 1% lidocaine. A 5 Polish Loogares.Comeh catheter was then entered into the pleural space and approximately 1200 mL of yellow fluid was obtained. Specimen sent for ordered analysis. Catheter was withdrawn. There were no immediate complications. Impression: Successful ultrasound guided right thoracentesis with 1200 mL of fluid obtained. Finalized by Chaim Wells MD on 12/09/2024 10:39 AM Normal [facility] LDH, FLUIDon 12-09-2024 LDH, FLUID 82 U/L Normal [facility] Comment on above: Order Comment: The r eference interval and other method performance specifications are unavailable for this body fluid. Comparison of this result to serum or plasma is recommended. Performed By: #### F LD #### [facility] ([facility]) [address] [place] [address] VIR MAGNESIUMon 12-09-2024 Magnesium [Mass/Vol] 1.8 mg/dL Normal 1.8-2.6 [facility] Comment on above: Performed By: #### M G #### [facility] ([id number]) [address] [place] [address] VIR REFLEXED BODY FLUID CELL COU NT DIFFERENTIALon 12-09-2024 FLUID LYMPHOCYTE RELATIVE PERCENT BY MANUAL COUNT 23 % Normal [facility] Comment on above: Order Comment: Refer ence values for this fluid type are undefined, as fluid accumulation is considered abnormal. Performed By: #### B FCT #### [facility] ([id number]) [address] [place] [address] VIR FLUID MACROPHAGE RELATIVE PERCENT BY MANUAL COUNT 67 % Normal [facility] Comment on above: Order Comment: Refer ence values for this fluid type are undefined, as fluid accumulation is considered abnormal. Performed By: #### B FCT #### [facility] ([id number]) [facility] [place] [address] VIR FLUID MESOTHELIAL RELATIVE PERCENT BY MANUAL COUNT 3 % Normal [facility] Comment on above: Order Comment: Refer ence values for this fluid type are undefined, as fluid accumulation is considered abnormal. Performed By: #### B FCT #### [facility] ([id number]) [facility] [place] [address] VIR FLUID NEUTROPHILS RELATIVE PERCENT BY MANUAL COUNT 7 % Normal [facility] Comment on above: Order Comment: Refer ence values for this fluid type are undefined, as fluid accumulation is considered abnormal. Performed By: #### B FCT #### [facility] ([id number]) [facility] [place] [address] VIR TOTAL CELLS COUNTED 100 % Normal [facility] Comment on above: Order Comment: Refer ence values for this fluid type are undefined, as fluid accumulation is considered abnormal. Performed By: #### B FCT #### [facility] ([id number]) [address] [place] [address] VIR TOTAL PROTEIN, FLUIDon 12-09 TOTAL PROTEIN, FLUID 2.9 g/dL Normal [facility] Comment on above: Order Comment: The r eference interval and other method performance specifications are unavailable for this body fluid. Comparison of this result to serum or plasma is recommended. Performed By: #### F TP #### [facility] ([facility]) [address] [place] [address] VIR BEDSIDE GLUCOSEon 12-08-2024 Glucose [Mass/Vol] 320 mg/dL High 65-99 [facility] Comment on above: Performed By: #### B EDG ####[facility] ([facility])[address] [place] [address] VIR Glucose [Mass/Vol] 191 mg/dL High [facility]99 [facility] Comment on above: Performed By: #### B EDG ####[facility] ([facility])[address] [place] [address] VIR Bedside Glucose *Place/Obtai n serum glucose if >500 per glucometer.on 12-08-2024 Glucose [Mass/Vol] 320 mg/dL High 65 - 99 mg/dL [facility] Interpretation and review of laboratory results Abnormal [facility] Glucose [Mass/Vol] 191 mg/dL High 65 - 99 mg/dL [facility] Interpretation and review of laboratory results Abnormal [facility] Glucose [Mass/Vol] 233 mg/dL High 65 - 99 mg/dL [facility] Interpretation and review of laboratory results Abnormal [facility] CBC WITH AUTO DIFFERENTIALon 12-08-2024 BASOPHILS ABSOLUTE COUNT (10*3/UL) BY AUTOMATED COUNT 0.0 10*3/uL Normal 0.0-0.2 [facility] Comment on above: Performed By: #### C BCA ####[facility] ([address] [address] VIR BASOPHILS RELATIVE PERCENT BY AUTOMATED COUNT 0.2 % Normal [facility] Comment on above: Performed By: #### C BCA ####[facility] ([address] [address] VIR CELLAVISION DIFFERENTIAL TYPE AUTOMATED DIFFERENTIAL Normal [facility] Comment on above: Performed By: #### C BCA ####[facility] ([address] [address] VIR Eosinophils (Bld) [#/Vol] 0.0 10*3/uL Normal 0.0-0.4 [facility] Comment on above: Performed By: #### C BCA ####[facility] ([address] [address] VIR EOSINOPHILS RELATIVE PERCENT BY AUTOMATED COUNT 0.0 % Normal [facility] Comment on above: Performed By: #### C BCA ####[facility] ([address] [address] VIR Erythrocyte distribution width (RBC) [Ratio] 18.8 % High 11.5-15 [facility] Comment on above: Performed By: #### C BCA ####[facility] ([address] [address] VIR Hematocrit (Bld) [Volume fraction] 30.9 % Low 35-47 [facility] Comment on above: Performed By: #### C BCA ####[facility] ([address] [address] VIR Hemoglobin (Bld) [Mass/Vol] 10.3 g/dL Low 11.7-15.5 [facility] Comment on above: Performed By: #### C BCA ####[facility] ([address] [address] VIR LYMPHOCYTES ABSOLUTE COUNT (10*3/UL) BY AUTOMATED COUNT 0.3 10*3/uL Low 1.0-3.5 [facility] Comment on above: Performed By: #### C BCA ####[facility] ([address] [address] VIR LYMPHOCYTES RELATIVE PERCENT BY AUTOMATED COUNT 5.5 % Normal [facility] Comment on above: Performed By: #### C BCA ####[facility] ([address] [address] VIR MCH (RBC) [Entitic mass] 28.4 pg Normal 27-34 [facility] Comment on above: Performed By: #### C BCA ####[facility] ([address] [address] VIR MCHC (RBC) [Mass/Vol] 33.2 g/dL Normal 32-36 [facility] Comment on above: Performed By: #### C BCA ####[facility] ([address] [address] VIR MCV (RBC) [Entitic vol] 86 fL Normal 80-100 [facility] Comment on above: Performed By: #### C BCA ####[facility] ([address] [place] [address] VIR MONOCYTES ABSOLUTE COUNT (10*3/UL) BY AUTOMATED COUNT 0.2 10*3/uL Normal 0.0-0.9 [facility] Comment on above: Performed By: #### C BCA ####[facility] ([address] [address] VIR MONOCYTES RELATIVE PERCENT BY AUTOMATED COUNT 3.3 % Normal [facility] Comment on above: Performed By: #### C BCA ####[facility] ([address] [address] VIR NEUTROPHILS ABSOLUTE COUNT BY AUTOMATED COUNT 5.7 10*3/uL Normal 1.5-6.6 [facility] Comment on above: Performed By: #### C BCA ####[facility] ([address] [address] VIR NEUTROPHILS RELATIVE PERCENT BY AUTOMATED COUNT 91.0 % Normal [facility] Comment on above: Performed By: #### C BCA ####[facility] ([address] [address] VIR Platelet mean volume (Bld) [Entitic vol] 8.7 fL Normal 7-12 [facility] Comment on above: Performed By: #### C BCA ####[facility] ([address] [address] VIR Platelets (Bld) [#/Vol] 166 10*3/uL Normal 150-450 [facility] Comment on above: Performed By: #### C BCA ####[facility] ([address] [address] VIR RBC COUNT 3.61 X10E12/L Low 3.8-5.2 [facility] Comment on above: Performed By: #### C BCA ####[facility] ([facility])[address] [place] [address] VIR WBC (Bld) [#/Vol] 6.3 10*3/uL Normal -11 [facility] Comment on above: Performed By: #### C MAYURI ####[facility] ([facility])[address] [place] [address] [place] [address] VIR CBC auto differentialon 11-25 Basophils (Bld) [#/Vol] 0 10*3/uL 0.0 - 0.2 10*3/uL [facility] Basophils/100 WBC (Bld) 0.2 % [facility] Differential cell count method Nom (Bld) AUTOMATED DIFFERENTIAL [facility] Eosinophils (Bld) [#/Vol] 0 10*3/uL 0.0 - 0.4 10*3/uL [facility] Eosinophils/100 WBC (Bld) 0 % [facility] Erythrocyte distribution width (RBC) [Ratio] 18.8 % High 11.5 - 15 % [facility] Hematocrit (Bld) [Volume fraction] 30.9 % Low 35 - 47 % [facility] Hemoglobin (Bld) [Mass/Vol] 10.3 g/dL Low 11.7 - 15.5 g/dL [facility] Interpretation and review of laboratory results Abnormal [facility] Lymphocytes (Bld) [#/Vol] 0.3 10*3/uL Low 1.0 - 3.5 10*3/uL [facility] Lymphocytes/100 WBC (Bld) 5.5 % [facility] MCH (RBC) [Entitic mass] 28.4 pg 27 - 34 pg [facility] MCHC (RBC) [Mass/Vol] 33.2 g/dL 32 - 3 6 g/dL [facility] MCV (RBC) [Entitic vol] 86 fL 80 - 100 fL [facility] Monocytes (Bld) [#/Vol] 0.2 10*3/uL 0.0 - 0.9 10*3/uL [facility] Monocytes/100 WBC (Bld) 3.3 % [facility] Neutrophils (Bld) [#/Vol] 5.7 10*3/uL 1.5 - 6.6 10*3/uL [facility] Neutrophils/100 WBC (Bld) 91 % [facility] Platelet mean volume (Bld) [Entitic vol] 8.7 fL 7 - 12 fL [facility] Platelets (Bld) [#/Vol] 166 10*3/uL [facility] RBC (Bld) [#/Vol] 3.61 10*6/uL Low [facility] WBC LM Ql (Sput) 6.3 [facility] COMPREHENSIVE METABOLIC PANE Rigoberto 12-08-2024 Albumin [Mass/Vol] 3.3 g/dL Normal 3.2-5.3 [facility] Comment on above: Performed By: #### C MP ####[facility] ([facility])[address] [place] [address] VIR ALP [Catalytic activity/Vol] 66 U/L Normal 39-130 [facility] Comment on above: Performed By: #### C MP ####[facility] ([address] [address] VIR ALT [Catalytic activity/Vol] 31 U/L Normal <=31 [facility] Comment on above: Performed By: #### C MP ####[facility] ([address] [address] VIR Anion gap [Moles/Vol] 10 mmol/L Normal 5-15 [facility] Comment on above: Performed By: #### C MP ####[facility] ([address] [address] VIR AST [Catalytic activity/Vol] 29 U/L Normal <=41 [facility] Comment on above: Performed By: #### C MP ####[facility] ([address] [place] [address] VIR Bilirubin [Mass/Vol] 0.7 mg/dL Normal 0.3-1.2 [facility] Comment on above: Performed By: #### C MP ####[facility] ([address] [place] [address] VIR Calcium [Mass/Vol] 8.5 mg/dL Normal 8.5-10.5 [facility] Comment on above: Performed By: #### C MP ####[facility] ([address] [place] [address] VIR Chloride [Moles/Vol] 98 mmol/L Normal 98-109 [facility] Comment on above: Performed By: #### C MP ####[facility] ([address] [place] [address] VIR CO2 [Moles/Vol] 28 mmol/L Normal 22-32 [facility] Comment on above: Performed By: #### C MP ####[facility] ([address] [address] VIR Creatinine [Mass/Vol] 1.92 mg/dL High 0.40-1.00 [facility] Comment on above: Result Comment: METH OD TRACEABLE TO IDMS STANDARD Performed By: #### C MP ####[facility] ([address] [address] VIR GFR/1.73 sq M.predicted among non-blacks MDRD (S/P/Bld) [Vol rate/Area] 26 mL/min/{1.73_m2} Low >=60 [facility] Comment on above: Result Comment: eGFR not reported due to non-numeric value for Creatinine. Reported eGFR is based on the CKD-EPI 2020 equation that does not use a race coefficient. Performed By: #### C MP ####[facility] ([address] [place] [address] VIR Glucose [Mass/Vol] 209 mg/dL High 65-99 [facility] Comment on above: Performed By: #### C MP ####[facility] ([facility])[address] [place] [address] VIR Potassium [Moles/Vol] 4.3 mmol/L Normal 3.5-5.0 [facility] Comment on above: Performed By: #### C MP ####[facility] ([facility])[address] [place], [place] [address] [address] VIR Protein [Mass/Vol] 6.2 g/dL Normal 6.0-8.0 [facility] Comment on above: Performed By: #### C MP ####[facility] ([address] [place] [address] VIR Sodium [Moles/Vol] 136 mmol/L Normal 134-146 [facility] Comment on above: Performed By: #### C MP ####[facility] ([address] [place] [address] VIR Urea nitrogen [Mass/Vol] 37 mg/dL High 5-27 [facility] Comment on above: Performed By: #### C MP ####[facility] ([facility])[address] [place] [address] [place] [address] VIR Cardiac echo study Procedure Ordered By: Damon Pimentel on 12-08-2024 Aortic root 3.4 cm [employer] Work Phone: Aortic valve Mean systole pressure gradient by US.doppler derived full Bernoulli 3 mmHg [facility] [employer] Work Phone: Aortic valve Orifice area by US 1.75 [employer] Work Phone: Aortic valve Peak systolic flow by US.doppler 118 cm/s [employer] Work Phone: AV peak gradient 5.57 mmHg [employer] Work Phone: AV Velocity Ratio 0.56 [employer] Work Phone: AV VTI 26.6 cm [employer] Work Phone: E wave deceleration time 211 msec [facility] Work Phone: E/A ratio 0.56 [facility] [facility] [employer] Work Phone: E/E' ratio 11 [facility] Work Phone: Energy loss index 16.33 [facility] [employer] Work Phone: Est. RA pressure 15 mmHg [facility] Work Phone: FS 19 % 28 - 44 % [facility] [employer] Work Phone: Interventricular Septum Diastolic Thickness by 2D 11 cm [employer] Work Phone: IVS 1.1 cm 0.6 - 1.1 cm [facility] Work Phone: LA size 4 cm [facility] Work Phone: LA volume 59.4 cm3 [facility] Work Phone: LA Volume Index 32.2 mL/m2 [facility] Work Phone: Left Ventricle Mass [id number] g [employer] Work Phone: Left ventricular Ejection fraction by 2D echo.visual estimate 46 % [facility] Work Phone: Left ventricular Ejection fraction by US.2D+Calculated by biplane method of disks 46 % [facility] Work Phone: LV Diastolic Volume 131 mL [facility] [employer] Work Phone: LV ESV A2C 81.8 mL [facility] [employer] Work Phone: LV ESV A4C 40.9 mL [facility] Work Phone: LV RWT 2D 57.14 [facility] Work Phone: LV Systolic Volume 70.4 mL [facility] [employer] Work Phone: LVIDd 4.2 cm 4.23 - 5.87 cm [facility] Work Phone: LVIDs 3.4 cm 2.50 - 3.78 cm [facility] Work Phone: LVOT diameter 2 cm [facility] Work Phone: LVOT peak jere 0.76 m/s [facility] Work Phone: LVOT peak VTI 14.8 cm [facility] Work Phone: LVOT stroke volume 46.5 ml [facility] Work Phone: MV E' average 3.5 cm/s [facility] Work Phone: MV Peak A Jere 68.9 cm/s [facility] Work Phone: MV Peak E Jere 38.3 cm/s [facility] Work Phone: MV pressure 1/2 time 62 ms [facility] [employer] Work Phone: MV TDI E' (medial) 3.48 cm/s [facility] [employer] Work Phone: MV valve area p 1/2 method 3.55 cm2 [facility] Work Phone: PV mean gradient 1 mmHg [facility] [employer] Work Phone: PV peak gradient 1.74 mmHg [facility] [employer] Work Phone: PW 1.2 cm 0.6 - 1.1 cm [facility] Work Phone: RA area 25.7 cm2 [facility] Work Phone: RV diastolic dimension (basal) 65 mm [employer] [employer] Work Phone: RV Peak Systolic Pressure 69 mmHg [facility] Work Phone: RVID d 4.3 cm [facility] Work Phone: TAPSE 1.42 cm [employer] Work Phone: TDI 3.48 cm/s [facility] Work Phone: TR max jere 3.7 m/s [facility] Work Phone: TR peak gradient 41.73 mmHg [facility] CenterMaven[facility] a [employer] Work Phone: TR Peak Jere 3.7 m/s [facility] Work Phone: Valve area - Index 0.9 [facility] CenterLe [email or web address] Work Phone: ZLVIDD -1.7 [facility] Work Phone: ZLVIDS 0.79 [facility] Work Phone: [facility] Work Phone: Cardiac echo study Procedure on 12-08-2024 Left Ventricle: Left ventricle appears normal in size. There is mild increased wall thickness/hypertrophy. Systolic function is mildly decreased with an ejection fraction of 45-50%. The quantitative EF by 2D Delgado biplane is 46%. See wall score diagram for wall motion abnormalities. There is both systolic and diastolic flattening of the interventricular septum consistent with right ventricle pressure and volume overload. Right Ventricle: Right ventricular size is severely dilated. The right ventricular basal diameter is 65.0 mm. Systolic function is moderately reduced. Abnormal tricuspid annular plane systolic excursion. Pericardium: There is a small circumferential pericardial effusion anterior and posterior to the heart. There is a left pleural effusion. Tricuspid Valve: There is severe regurgitation. The tricuspid valve regurgitation jet is central. There is no evidence of tricuspid valve stenosis. The right ventricular systolic pressure is severely elevated. RVSP calculated at 69 mmHg. RVSP is based on RA pressure of 15 mmHg. There is severe pulmonary hypertension. Aorta: The aortic root is normal in size. Aortic Valve: There is trace regurgitation. There is no evidence of aortic valve stenosis. Mitral Valve: There is mild annular calcification. The posterior leaflet is prolapsed. There is trace regurgitation. There is no evidence of mitral valve stenosis. Left Ventricle Left ventricle appears normal in size. There is mild increased wall thickness/hypertrophy. Systolic function is mildly decreased with an ejection fraction of 45-50%. The quantitative EF by 2D Delgado biplane is 46%. See wall score diagram for wall motion abnormalities. There is both systolic and diastolic flattening of the interventricular septum consistent with right ventricle pressure and volume overload. There is grade I (mild) diastolic dysfunction and normal left atrial pressure. Lateral E' is 3.48 cm/s. Medial E' is 3.48 cm/s. Average E' is 3.5 cm/s. Right Ventricle Right ventricular size is severely dilated. The right ventricular basal diameter is 65.0 mm. Systolic function is moderately reduced. Abnormal tricuspid annular plane systolic excursion. Abnormal systolic excursion velocity by TDI (<9.5cm/s). Left Atrium Left atrium volume index is normal. The left atrial volume index is 32.2 mL/m2. Right Atrium Right atrium is severely dilated. The right atrial area is 25.7 cm2. IVC/SVC The right atrial pressure is estimated at 15 mmHg. IVC appears dilated with increased right atrial pressure. There is partial collapse with deep inspiration. Mitral Valve The leaflets are severely thickened. There is mild annular calcification. The posterior leaflet is prolapsed. There is trace regurgitation. There is no evidence of mitral valve stenosis. Tricuspid Valve Tricuspid valve appears to be normal. The leaflets are mildly thickened. There is severe regurgitation. The tricuspid valve regurgitation jet is central. There is no evidence of tricuspid valve stenosis. The right ventricular systolic pressure is severely elevated. RVSP calculated at 69 mmHg. RVSP is based on RA pressure of 15 mmHg. There is severe pulmonary hypertension. Aortic Valve The aortic valve is trileaflet. There is mild sclerosis. There is trace regurgitation. There is no evidence of aortic valve stenosis. Pulmonic Valve The pulmonic valve was not well visualized. Pulmonic valve structure is grossly normal. There is mild regurgitation. There is no evidence of pulmonic valve stenosis. The peak gradient is 1.74 mmHg. The mean gradient is 1.00 mmHg. Ascending Aorta The aortic root is normal in size. Pericardium There is a small circumferential pericardial effusion anterior and posterior to the heart. There is a left pleural effusion. Study Details A complete echo was performed using complete 2D, color flow Doppler and spectral Doppler. Definity study was performed. Overall the study quality was adequate. BP 112/66 Wall Scoring Baseline Score Index: 2.00 The left ventricular wall motion is globally hypokinetic. [facility]CELERA Radiology Study observation (narrative) [facility] Comprehensive metabolic pane rigoberto 12-08-2024 Albumin [Mass/Vol] 3.3 g/dL 3.2 - 5.3 g/dL [facility] ALP [Catalytic activity/Vol] 66 U/L 39 - 130 U/L [facility] ALT No additional P-5'-P [Catalytic activity/Vol] 31 U/L NINF - 31 U/L [facility] Anion gap [Moles/Vol] 10 mmol/L 5 - 15 mmol/L [facility] AST [Catalytic activity/Vol] 29 U/L NINF - 41 U/L [facility] Bilirubin [Mass/Vol] 0.7 mg/dL 0.3 - 1 .2 mg/dL [facility] Calcium [Mass/Vol] 8.5 mg/dL 8.5 - 10. 5 mg/dL [facility] Chloride [Moles/Vol] 98 mmol/L 98 - 10 9 mmol/L [facility] CO2 [Moles/Vol] 28 mmol/L 22 - 32 mmol/L [facility] Creatinine [Mass/Vol] 1.92 mg/dL High 0.40 - 1.00 mg/dL [facility] Comment on above: METHOD TRACEABLE TO ID[facility] STANDARD EGFR Non-Race Dependent 26 Low - PINF [facility] Comment on above: eGFR not reported du e to non-numeric value for Creatinine. Reported eGFR is based on the CKD-EPI 2020 equation that does not use a race coefficient. Glucose [Mass/Vol] 209 mg/dL High 65 - 99 mg/dL [facility] Interpretation and review of laboratory results Abnormal [facility] Potassium [Moles/Vol] 4.3 mmol/L 3.5 - 5.0 mmol/L [facility] Protein [Mass/Vol] 6.2 g/dL 6.0 - 8.0 g/dL [facility] Sodium [Moles/Vol] 136 mmol/L 134 - 146 mmol/L [facility] Urea nitrogen [Mass/Vol] 37 mg/dL High 5 - 27 mg/dL [facility] Light Blue Topon 12-08-2024 Extra Tube Auto Resulted [facility] MAGNESIUMon 12-08-2024 Magnesium [Mass/Vol] 1.9 mg/dL Normal 1.8-2.6 [facility] Comment on above: Performed By: #### M G ####[facility] ([facility])[address] [place] [address] VIR Magnesiumon 12-08-2024 Interpretation and review of laboratory results Normal [facility] Magnesium [Mass/Vol] 1.9 mg/dL 1.8 - 2 .6 mg/dL [facility] URINALYSISon 12-08-2024 Bilirubin Ql (U) Negative Normal Negative [facility] Comment on above: Performed By: #### U A ####[facility] ([facility])[address] [place] [address] VIR BLOOD/HGB Negative Normal Negative [facility] Comment on above: Performed By: #### U A ####[facility] ([address] [place] [address] VIR Color (U) Yellow Normal Yellow, Colorless [facility] Comment on above: Performed By: #### U A ####[facility] ([address] [address] VIR Glucose Ql (U) Negative Normal Negative, 250 mg/dL [facility] Comment on above: Performed By: #### U A ####[facility] ([address] [place] [address] VIR Hyaline casts LM Ql (Urine sed) 5 High 0-2 [facility] Comment on above: Performed By: #### U A ####[facility] ([address] [place] [address] VIR Ketones Ql (U) Negative Normal Negative [facility] Comment on above: Performed By: #### U A ####[facility] ([address] [address] VIR Leukocyte esterase Test strip Ql (U) Trace Abnormal Negative [facility] Comment on above: Performed By: #### U A ####[facility] ([place])[address] [place] [address] [place] [address] VIR Nitrite Ql (U) Negative Normal Negative [facility] Comment on above: Performed By: #### U A ####[facility] ([facility])[address] [place] [address] [place] [address] VIR PH,URINE 6.5 Normal 5.0-8.5 [facility] Comment on above: Performed By: #### U A ####[facility] ([facility])[address] [place], [place] [address] [address] VIR Protein Ql (U) 30 mg/dL Abnormal Negative [facility] Comment on above: Performed By: #### U A ####[facility] ([address] [place] [address] VIR Specific gravity (U) [Rel density] 1.020 Normal 1.003-1.03 5 [facility] Comment on above: Performed By: #### U A ####[facility] ([address] [place] [address] VIR SQUAMOUS EPITHELIUM 6 High 0-5 [facility] Comment on above: Performed By: #### U A ####[facility] ([facility])[address] [place], [place] [address] [address] VIR TURBIDITY Clear Normal Clear [facility] Comment on above: Performed By: #### U A ####[facility] ([address] [place] [address] VIR UROBILINOGEN 0.2 eu/dL Normal 0.2 eu/dL, 1.0 eu/dL [facility] Comment on above: Performed By: #### U A ####[facility] ([facility])[address] [place], [place] [address] [address] VIR W.B.CELLS 15 High 0-5 [facility] Comment on above: Performed By: #### U A ####[facility] ([facility])[address] [place] [address] VIR WBC CLUMPS Present Abnormal None [facility] Comment on above: Performed By: #### U A ####[facility] ([facility])[address] [place] [address] VIR Urinalysison 12-08-2024 Bilirubin Ql (U) Negative Negative [facility] Color (U) Yellow Yellow, Colorless [facility] Epithelial cells Auto (Urine sed) [#/Area] 6 High 0 - 5 [facility] Glucose (U) [Mass/Vol] Negative Negative, 250 mg/dL [facility] Hemoglobin Auto test strip Ql (U) Negative Negative [facility] Hyaline casts (Urine sed) [#/Area] 5 /[LPF] High 0 - 2 [facility] Interpretation and review of laboratory results Abnormal [facility] Ketones (U) [Mass/Vol] Negative Negative [facility] Leukocyte clumps LM Ql (Urine sed) Present Abnormal None [facility] Leukocyte esterase Auto test strip Ql (U) Trace Abnormal Negative [facility] Nitrite Auto test strip Ql (U) Negative Negative [facility] pH (U) 6.5 [pH] 5.0 - 8.5 [facility] Protein (U) [Mass/Vol] 30 mg/dL Abnormal Negative [facility] Specific gravity Refractometry automated (U) [Rel density] 1.02 1.003 - 1.035 [facility] Turbidity Ql (U) Clear Clear [facility] Urobilinogen Qn (U) [id number] {Peng'U}/dL 0.2 eu/dL, 1.0 eu/dL [facility] WBC Auto (Urine sed) [#/Area] 15 High 0 - 5 [facility] BEDSIDE GLUCOSEon 12-07-2024 Glucose [Mass/Vol] 246 mg/dL High 65-99 [facility] Comment on above: Performed By: #### B EDG ####[facility] ([facility])[address] [place] [address] VIR Glucose [Mass/Vol] 329 mg/dL High 65-99 [facility] Comment on above: Performed By: #### B EDG ####[facility] ([address] [address] VIR Glucose [Mass/Vol] 233 mg/dL High 65-99 [facility] Comment on above: Performed By: #### B EDG ####[facility] ([address] [address] VIR Bedside Glucose *Place/Obtai n serum glucose if >500 per glucometer.on 12-07-2024 Glucose [Mass/Vol] 246 mg/dL High 65 - 99 mg/dL [facility] Interpretation and review of laboratory results Abnormal [facility] Glucose [Mass/Vol] 329 mg/dL High 65 - 99 mg/dL [facility] Interpretation and review of laboratory results Abnormal [facility] CBC WITH AUTO DIFFERENTIALon 12-07-2024 BASOPHILS ABSOLUTE COUNT (10*3/UL) BY AUTOMATED COUNT 0.0 10*3/uL Normal 0.0-0.2 [facility] Comment on above: Performed By: #### C BCA ####[facility] ([address] [address] VIR BASOPHILS RELATIVE PERCENT BY AUTOMATED COUNT 0.4 % Normal [facility] Comment on above: Performed By: #### C BCA ####[facility] ([address] [address] VIR CELLAVISION DIFFERENTIAL TYPE AUTOMATED DIFFERENTIAL Normal [facility] Comment on above: Performed By: #### C BCA ####[facility] ([address] [address] VIR Eosinophils (Bld) [#/Vol] 0.0 10*3/uL Normal 0.0-0.4 [facility] Comment on above: Performed By: #### C BCA ####[facility] ([address] [address] VIR EOSINOPHILS RELATIVE PERCENT BY AUTOMATED COUNT 0.1 % Normal [facility] Comment on above: Performed By: #### C BCA ####[facility] ([address] [place] [address] VIR Erythrocyte distribution width (RBC) [Ratio] 18.9 % High 11.5-15 [facility] Comment on above: Performed By: #### C BCA ####[facility] ([address] [address] VIR Hematocrit (Bld) [Volume fraction] 31.2 % Low 35-47 [facility] Comment on above: Performed By: #### C BCA ####[facility] ([address] [address] VIR Hemoglobin (Bld) [Mass/Vol] 10.1 g/dL Low 11.7-15.5 [facility] Comment on above: Performed By: #### C BCA ####[facility] ([address] [address] VIR LYMPHOCYTES ABSOLUTE COUNT (10*3/UL) BY AUTOMATED COUNT 0.3 10*3/uL Low 1.0-3.5 [facility] Comment on above: Performed By: #### C BCA ####[facility] ([address] [address] VIR LYMPHOCYTES RELATIVE PERCENT BY AUTOMATED COUNT 4.7 % Normal [facility] Comment on above: Performed By: #### C BCA ####[facility] ([address] [address] VIR MCH (RBC) [Entitic mass] 28.1 pg Normal 27-34 [facility] Comment on above: Performed By: #### C BCA ####[facility] ([address] [place] [address] VIR MCHC (RBC) [Mass/Vol] 32.4 g/dL Normal 32-36 [facility] Comment on above: Performed By: #### C BCA ####[facility] ([address] [place] [address] VIR MCV (RBC) [Entitic vol] 87 fL Normal 80-100 [facility] Comment on above: Performed By: #### C BCA ####[facility] ([address] [place] [address] VIR MONOCYTES ABSOLUTE COUNT (10*3/UL) BY AUTOMATED COUNT 0.0 10*3/uL Normal 0.0-0.9 [facility] Comment on above: Performed By: #### C BCA ####[facility] ([address] [place] [address] VIR MONOCYTES RELATIVE PERCENT BY AUTOMATED COUNT 0.9 % Normal [facility] Comment on above: Performed By: #### C BCA ####[facility] ([address] [place] [address] VIR NEUTROPHILS ABSOLUTE COUNT BY AUTOMATED COUNT 5.1 10*3/uL Normal 1.5-6.6 [facility] Comment on above: Performed By: #### C BCA ####[facility] ([address] [place] [address] VIR NEUTROPHILS RELATIVE PERCENT BY AUTOMATED COUNT 93.9 % Normal [facility] Comment on above: Performed By: #### C BCA ####[facility] ([address] [place] [address] VIR Platelet mean volume (Bld) [Entitic vol] 8.3 fL Normal 7-12 [facility] Comment on above: Performed By: #### C BCA ####[facility] ([address] [place] [address] VIR Platelets (Bld) [#/Vol] 167 10*3/uL Normal 150-450 [facility] Comment on above: Performed By: #### C BCA ####[facility] ([facility])[address] [place] [address] VIR RBC COUNT 3.60 X10E12/L Low 3.8-5.2 [facility] Comment on above: Performed By: #### C BCA ####[facility] ([facility])[address] [place] [address] VIR WBC (Bld) [#/Vol] 5.4 10*3/uL Normal 4-11 [facility] Comment on above: Performed By: #### C BCA ####[facility] ([address] [address] VIR CBC auto differentialon 11-25 Basophils (Bld) [#/Vol] 0 10*3/uL 0.0 - 0.2 10*3/uL [facility] Basophils/100 WBC (Bld) 0.4 % [facility] Differential cell count method Nom (Bld) AUTOMATED DIFFERENTIAL [facility] Eosinophils (Bld) [#/Vol] 0 10*3/uL 0.0 - 0.4 10*3/uL [facility] Eosinophils/100 WBC (Bld) 0.1 % [facility] Erythrocyte distribution width (RBC) [Ratio] 18.9 % High 11.5 - 15 % [facility] Hematocrit (Bld) [Volume fraction] 31.2 % Low 35 - 47 % [facility] Hemoglobin (Bld) [Mass/Vol] 10.1 g/dL Low 11.7 - 15.5 g/dL [facility] Interpretation and review of laboratory results Abnormal [facility] Lymphocytes (Bld) [#/Vol] 0.3 10*3/uL Low 1.0 - 3.5 10*3/uL [facility] Lymphocytes/100 WBC (Bld) 4.7 % [facility] MCH (RBC) [Entitic mass] 28.1 pg 27 - 34 pg [facility] MCHC (RBC) [Mass/Vol] 32.4 g/dL 32 - 3 6 g/dL [facility] MCV (RBC) [Entitic vol] 87 fL 80 - 100 fL [facility] Monocytes (Bld) [#/Vol] 0 10*3/uL 0.0 - 0.9 10*3/uL [facility] Monocytes/100 WBC (Bld) 0.9 % [facility] Neutrophils (Bld) [#/Vol] 5.1 10*3/uL 1.5 - 6.6 10*3/uL [facility] Neutrophils/100 WBC (Bld) 93.9 % [facility] Platelet mean volume (Bld) [Entitic vol] 8.3 fL 7 - 12 fL [facility] Platelets (Bld) [#/Vol] 167 10*3/uL [facility] RBC (Bld) [#/Vol] 3.6 10*6/uL Low [facility] WBC LM Ql (Sput) 5.4 [facility] COMPREHENSIVE METABOLIC PANE Rigoberto 12-07-2024 Albumin [Mass/Vol] 3.0 g/dL Low 3.2-5.3 [facility] Comment on above: Performed By: #### C MP ####[facility] ([address] [address] VIR ALP [Catalytic activity/Vol] 64 U/L Normal 39-130 [facility] Comment on above: Performed By: #### C MP ####[facility] ([address] [address] VIR ALT [Catalytic activity/Vol] 28 U/L Normal <=31 [facility] Comment on above: Performed By: #### C MP ####[facility] ([address] [address] VIR Anion gap [Moles/Vol] 14 mmol/L Normal 5-15 [facility] Comment on above: Performed By: #### C MP ####[facility] ([place] [address] [place] [address] VIR AST [Catalytic activity/Vol] 23 U/L Normal <=41 [facility] Comment on above: Performed By: #### C MP ####[facility] ([place] [address] [place] [address] VIR Bilirubin [Mass/Vol] 1.2 mg/dL Normal 0.3-1.2 [facility] Comment on above: Performed By: #### C MP ####[facility] ([place] [address] [place] [address] VIR Calcium [Mass/Vol] 8.3 mg/dL Low 8.5-10.5 [facility] Comment on above: Performed By: #### C MP ####[facility] ([address] [address] VIR Chloride [Moles/Vol] 100 mmol/L Normal 98-109 [facility] Comment on above: Performed By: #### C MP ####[facility] ([address] [place] [address] VIR CO2 [Moles/Vol] 25 mmol/L Normal 22-32 [facility] Comment on above: Performed By: #### C MP ####[facility] ([address] [place] [address] VIR Creatinine [Mass/Vol] 1.61 mg/dL High 0.40-1.00 [facility] Comment on above: Result Comment: METH OD TRACEABLE TO IDMS STANDARD Performed By: #### C MP ####[facility] ([address] [place] [address] VIR GFR/1.73 sq M.predicted among non-blacks MDRD (S/P/Bld) [Vol rate/Area] 32 mL/min/{1.73_m2} Low >=60 [facility] Comment on above: Result Comment: eGFR not reported due to non-numeric value for Creatinine. Reported eGFR is based on the CKD-EPI 2020 equation that does not use a race coefficient. Performed By: #### C MP ####[facility] ([facility])[address] [place], [place] [address] [address] VIR Glucose [Mass/Vol] 216 mg/dL High 65-99 [facility] Comment on above: Performed By: #### C MP ####[facility] ([address] [place] [address] VIR Potassium [Moles/Vol] 3.9 mmol/L Normal 3.5-5.0 [facility] Comment on above: Performed By: #### C MP ####[facility] ([address] [place] [address] VIR Protein [Mass/Vol] 5.9 g/dL Low 6.0-8.0 [facility] Comment on above: Performed By: #### C MP ####[facility] ([address] [place] [address] VIR Sodium [Moles/Vol] 139 mmol/L Normal 134-146 [facility] Comment on above: Performed By: #### C MP ####[facility] ([address] [place] [address] VIR Urea nitrogen [Mass/Vol] 31 mg/dL High 5-27 [facility] Comment on above: Performed By: #### C MP ####[facility] ([address] [place] [address] VIR Comprehensive metabolic pane rigoberto 12-07-2024 Albumin [Mass/Vol] 3 g/dL Low 3.2 - 5.3 g/dL [facility] ALP [Catalytic activity/Vol] 64 U/L 39 - 130 U/L [facility] ALT No additional P-5'-P [Catalytic activity/Vol] 28 U/L NINF - 31 U/L [facility] Anion gap [Moles/Vol] 14 mmol/L 5 - 15 mmol/L [facility] AST [Catalytic activity/Vol] 23 U/L NINF - 41 U/L [facility] Bilirubin [Mass/Vol] 1.2 mg/dL 0.3 - 1 .2 mg/dL [facility] Calcium [Mass/Vol] 8.3 mg/dL Low 8.5 - 10. 5 mg/dL [facility] Chloride [Moles/Vol] 100 mmol/L 98 - 10 9 mmol/L [facility] CO2 [Moles/Vol] 25 mmol/L 22 - 32 mmol/L [facility] Creatinine [Mass/Vol] 1.61 mg/dL High 0.40 - 1.00 mg/dL [facility] Comment on above: METHOD TRACEABLE TO IDNH STANDARD EGFR Non-Race Dependent 32 Low - PINF [facility] Comment on above: eGFR not reported du e to non-numeric value for Creatinine. Reported eGFR is based on the CKD-EPI 2020 equation that does not use a race coefficient. Glucose [Mass/Vol] 216 mg/dL High 65 - 99 mg/dL [facility] Interpretation and review of laboratory results Abnormal [facility] Potassium [Moles/Vol] 3.9 mmol/L 3.5 - 5.0 mmol/L [facility] Protein [Mass/Vol] 5.9 g/dL Low 6.0 - 8.0 g/dL [facility] Sodium [Moles/Vol] 139 mmol/L 134 - 146 mmol/L [facility] Urea nitrogen [Mass/Vol] 31 mg/dL High 5 - 27 mg/dL [facility] FERRITINon 12-07-2024 Ferritin [Mass/Vol] 33 ng/mL Normal 11-307 [facility] Comment on above: Performed By: #### F ERR ####[facility] (TT)[address] [address] [address] VIR FOLATEon 12-07-2024 FOLIC ACID 17.5 ng/mL Normal >5.8 [facility] Comment on above: Performed By: #### F YOVANNY ####[facility] ([facility])[address], [place] [address] VIR Ferritinon 12-07-2024 Ferritin [Mass/Vol] 33 ng/mL 11 - 307 ng/mL [facility] Interpretation and review of laboratory results Normal [facility] Folateon 12-07-2024 Folate [Mass/Vol] 17.5 ng/mL 5.8 - PINF ng/mL [facility] Interpretation and review of laboratory results Normal [facility] IRON AND TIBCon 12-07-2024 Iron [Mass/Vol] 27 ug/dL Low 50-170 [facility] Comment on above: Performed By: #### F EPR ####[facility] ([facility])[address], [place] [address] VIR IRON BINDING 314 ug/dL Normal 250-425 [facility] Comment on above: Performed By: #### F EPR ####[facility] ([facility])[address], [place] [address] VIR IRON SATURATION 9 % SATURATION Low 15-50 [facility] Comment on above: Performed By: #### F EPR ####[facility] ([facility])[address], [place] [address] VIR Transferrin [Mass/Vol] 224 mg/dL Normal 168-336 [facility] Comment on above: Performed By: #### F EPR ####[facility] ([facility])[address], [place] [address] VIR Iron and TIBCon 12-07-2024 Interpretation and review of laboratory results Abnormal [facility] Iron [Mass/Vol] 27 ug/dL Low 50 - 170 ug/dL [facility] Iron binding capacity [Mass/Vol] 314 ug/dL 250 - 425 ug/dL [facility] Iron saturation [Mass fraction] 9 Low [facility] Transferrin [Mass or moles/Vol] 224 mg/dL 168 - 336 mg/dL [facility] LACTATE W/ REFLEXon 12-08-19 25 LACTATE W/REFLEX 0.8 mmol/L Normal 0.4-2.0 [facility] Comment on above: Order Comment: Resul t did not trigger repeat Lactate,re-order if needed. Performed By: #### L ACTS ####[facility] ([facility])[address] [place] [address].[place] [address] VIR Lactate w/ Reflexon 12-08-19 25 Interpretation and review of laboratory results Normal [facility] Lactate (P chloe) [Moles/Vol] 0.8 mmol/L 0.4 - 2.0 mmol/L [facility] Result did not basasm er repeat Lactate, re-order if needed. [facility] Light Blue Topon 12-07-2024 Extra Tube Auto Resulted [facility] MAGNESIUMon 12-07-2024 Magnesium [Mass/Vol] 2.0 mg/dL Normal 1.8-2.6 [facility] Comment on above: Performed By: #### M G ####[facility] ([address] [place] [address] VIR Magnesiumon 12-07-2024 Interpretation and review of laboratory results Normal [facility] Magnesium [Mass/Vol] 2 mg/dL 1.8 - 2 .6 mg/dL [facility] No Panel Informationon 12-07 [facility] RESP PATHOGENS PANEL/SARS-CO V-2on 12-07-2024 SARS-CoV-2 (COVID-19) RNA YUMIKO+probe Ql (Resp) SARS COV 2 BY PCR Not Detected ADENOVIRUS Not Detected CORONAVIRUS 229E Not Detected CORONAVIRUS HKU1 Not Detected CORONAVIRUS NL63 Not Detected CORONAVIRUS OC43 Not Detected HUMAN METAPNEUVIRUS Not Detected RHINO/ENTEROVIRUS Not Detected INFLUENZA A Not Detected INFLUENZA B Not Detected PARAINFLUENZA 1 Not Detected PARAINFLUENZA 2 Not Detected PARAINFLUENZA 3 Not Detected PARAINFLUENZA 4 Not Detected RESP SYNCYTIAL VIRUS Not Detected BORD PARAPERTUSSIS Not Detected BORDETELLA PERTUSSIS Not Detected CHLAM.PNEUMONIAE Not Detected MYCOPLASMA PNEUMONIAE Not Detected Normal Not Detected [facility] Comment on above: Order Comment: The B Baby[employer] Respiratory Panel 2.1 (RP2.1) is a multiplexed nucleic acid test intended for the simultaneous qualitative detection and differentiation of nucleic acid from multiple viral and bacterial respiratory organisms, including nucleic acid from Severe Acute Respiratory Syndrome Coronavirus 2 (SARS-CoV-2), in nasopharyngeal swabs obtained from individuals suspected of COVID-19 by their healthcare provider. Testing is limited to laboratories certified under the Clinical Laboratory Improvement Amendments of 1988 (CLIA), to perform high complexity or moderate complexity tests.SARS-CoV-2 RNA and nucleic acids from the other respiratory viral and bacterial organisms identified by this test are generally detectable in nasopharyngeal swabs during the acute phase of infection. The detection and identification of specific viral and bacterial nucleic acids from individuals exhibiting signs and/or symptoms of respiratory infection is indicative of the presence of the identified microorganism and aids in the diagnosis of respiratory infection if used in conjunction with other clinical and epidemiological information. Positive results are indicative of the presence of the identified organism, but do not rule out co-infection with other pathogens. The agent(s) detected by the Subtexte RP2.1 may not be the definite cause of disease and clinical correlation with patient history and other diagnostic information is necessary to determine patient infection status.Negative results in the setting of a respiratory illness may be due to infection with pathogens not detected by this test, or lower respiratory tract infection that may not be detected by a nasopharyngeal specimen. Negative results do not preclude SARS-CoV-2 infection and should not be used as the sole basis for patient management decisions. Negative SHAE-CoV-2 results must be combined with clinical observations, patient history and epidemiological information. Negative results for other organisms identified by the test may require additional laboratory testing when evaluating a patient with possible respiratory tract infection. Performed By: #### R EPPCV ####[facility] ([facility])[address] [address] VIR Respiratory pathogens DNA an d RNA panel YUMIKO+non-probe (Nph)Ordered By: Debby Tovar on 12-07-2024 Adenovirus DNA YUMIKO+probe Ql (Unsp spec) Not detected Not Detected [facility] B. parapertussis [id number] DNA YUMIKO+non-probe Ql (Nph) Not detected Not Detected [facility] B. pertussis toxin promoter region YUMIKO+non-probe Ql (Nph) Not detected Not Detected [facility] C. pneumoniae DNA YUMIKO+non-probe Ql (Nph) Not detected Not Detected [facility] FLUAV RNA YUMIKO+non-probe Ql (Nph) Not detected Not Detected [facility] FLUBV RNA YUMIKO+non-probe Ql (Nph) Not detected Not Detected [facility] HCoV 229E RNA YUMIKO+non-probe Ql (Nph) Not detected Not Detected [facility] HCoV HKU1 RNA YUMIKO+non-probe Ql (Nph) Not detected Not Detected [facility] HCoV NL63 RNA YUMIKO+non-probe Ql (Nph) Not detected Not Detected [facility] HCoV OC43 RNA YUMIKO+non-probe Ql (Nph) Not detected Not Detected [facility] hMPV RNA YUMIKO+non-probe Ql (Nph) Not detected Not Detected [facility] Interpretation and review of laboratory results Normal [facility] M. pneumoniae DNA YUMIKO+non-probe Ql (Nph) Not detected Not Detected [facility] Parainfluenza virus 1 RNA YUMIKO+non-probe Ql (Nph) Not detected Not Detected [facility] Parainfluenza virus 2 RNA YUMIKO+non-probe Ql (Nph) Not detected Not Detected [facility] Parainfluenza virus 3 RNA YUMIKO+non-probe Ql (Nph) Not detected Not Detected [facility] Parainfluenza virus 4 RNA YUMIKO+non-probe Ql (Nph) Not detected Not Detected [facility] Rhinovirus+Enteroviru s RNA YUMIKO+non-probe Ql (Nph) Not detected Not Detected [facility] RSV RNA YUMIKO+non-probe Ql (Nph) Not detected Not Detected [facility] SARS-CoV-2 (COVID-19) RNA YUMIKO+probe Ql (Resp) Not detected Not Detected [facility] The [employer]Fire Respirat ory Panel 2.1 (RP2.1) is a multiplexed nucleic acid test intended for the simultaneous qualitative detection and differentiation of nucleic acid from multiple viral and bacterial respiratory organisms, including nucleic acid from Severe Acute Respiratory Syndrome Coronavirus 2 (SARS-CoV-2), in nasopharyngeal swabs obtained from individuals suspected of COVID-19 by their healthcare provider. Testing is limited to laboratories certified under the Clinical Laboratory Improvement Amendments of 1988 (CLIA), to perform high complexity or moderate complexity tests. SARS-CoV-2 RNA and nucleic acids from the other respiratory viral and bacterial organisms identified by this test are generally detectable in nasopharyngeal swabs during the acute phase of infection. The detection and identification of specific viral and bacterial nucleic acids from individuals exhibiting signs and/or symptoms of respiratory infection is indicative of the presence of the identified microorganism and aids in the diagnosis of respiratory infection if used in conjunction with other clinical and epidemiological information. Positive results are indicative of the presence of the identified organism, but do not rule out co-infection with other pathogens. The agent(s) detected by the Subtexte RP2.1 may not be the definite cause of disease and clinical correlation with patient history and other diagnostic information is necessary to determine patient infection status. Negative results in the setting of a respiratory illness may be due to infection with pathogens not detected by this test, or lower respiratory tract infection that may not be detected by a nasopharyngeal specimen. Negative results do not preclude SARS-CoV-2 infection and should not be used as the sole basis for patient management decisions. Negative SHAE-CoV-2 results must be combined with clinical observations, patient history and epidemiological information. Negative results for other organisms identified by the test may require additional laboratory testing when evaluating a patient with possible respiratory tract infection. [facility] Respiratory pathogens DNA an d RNA panel YUMIKO+non-probe (Nph)Ordered By: Yasmin Slater on 12-07-2024 Adenovirus DNA YUMIKO+probe Ql (Unsp spec) Not detected Not Detected [facility] B. parapertussis [id number] DNA YUMIKO+non-probe Ql (Nph) Not detected Not Detected [facility] B. pertussis toxin promoter region YUMIKO+non-probe Ql (Nph) Not detected Not Detected [facility] C. pneumoniae DNA YUMIKO+non-probe Ql (Nph) Not detected Not Detected [facility] FLUAV RNA YUMIKO+non-probe Ql (Nph) Not detected Not Detected [facility] FLUBV RNA YUMIKO+non-probe Ql (Nph) Not detected Not Detected [facility] HCoV 229E RNA YUMIKO+non-probe Ql (Nph) Not detected Not Detected [facility] HCoV HKU1 RNA YUMIKO+non-probe Ql (Nph) Not detected Not Detected [facility] HCoV NL63 RNA YUMIKO+non-probe Ql (Nph) Not detected Not Detected [facility] HCoV OC43 RNA YUMIKO+non-probe Ql (Nph) Not detected Not Detected [facility] hMPV RNA YUMIKO+non-probe Ql (Nph) Not detected Not Detected [facility] Interpretation and review of laboratory results Normal [facility] M. pneumoniae DNA YUMIKO+non-probe Ql (Nph) Not detected Not Detected [facility] Parainfluenza virus 1 RNA YUMIKO+non-probe Ql (Nph) Not detected Not Detected [facility] Parainfluenza virus 2 RNA YUMIKO+non-probe Ql (Nph) Not detected Not Detected [facility] Parainfluenza virus 3 RNA YUMIKO+non-probe Ql (Nph) Not detected Not Detected [facility] Parainfluenza virus 4 RNA YUMIKO+non-probe Ql (Nph) Not detected Not Detected [facility] Rhinovirus+Enteroviru s RNA YUMIKO+non-probe Ql (Nph) Not detected Not Detected [facility] RSV RNA YUMIKO+non-probe Ql (Nph) Not detected Not Detected [facility] SARS-CoV-2 (COVID-19) RNA YUMIKO+probe Ql (Resp) Not detected Not Detected [facility] The BioFire Respirat ory Panel 2.1 (RP2.1) is a multiplexed nucleic acid test intended for the simultaneous qualitative detection and differentiation of nucleic acid from multiple viral and bacterial respiratory organisms, including nucleic acid from Severe Acute Respiratory Syndrome Coronavirus 2 (SARS-CoV-2), in nasopharyngeal swabs obtained from individuals suspected of COVID-19 by their healthcare provider. Testing is limited to laboratories certified under the Clinical Laboratory Improvement Amendments of 1988 (CLIA), to perform high complexity or moderate complexity tests. SARS-CoV-2 RNA and nucleic acids from the other respiratory viral and bacterial organisms identified by this test are generally detectable in nasopharyngeal swabs during the acute phase of infection. The detection and identification of specific viral and bacterial nucleic acids from individuals exhibiting signs and/or symptoms of respiratory infection is indicative of the presence of the identified microorganism and aids in the diagnosis of respiratory infection if used in conjunction with other clinical and epidemiological information. Positive results are indicative of the presence of the identified organism, but do not rule out co-infection with other pathogens. The agent(s) detected by the BioFire RP2.1 may not be the definite cause of disease and clinical correlation with patient history and other diagnostic information is necessary to determine patient infection status. Negative results in the setting of a respiratory illness may be due to infection with pathogens not detected by this test, or lower respiratory tract infection that may not be detected by a nasopharyngeal specimen. Negative results do not preclude SARS-CoV-2 infection and should not be used as the sole basis for patient management decisions. Negative SHAE-CoV-2 results must be combined with clinical observations, patient history and epidemiological information. Negative results for other organisms identified by the test may require additional laboratory testing when evaluating a patient with possible respiratory tract infection. [facility] VITAMIN B12on 12-07-2024 Cobalamin (Vitamin B12) [Mass/Vol] 241 pg/mL Normal 180-914 [facility] Comment on above: Performed By: #### B 12 ####[facility] ([facility])[address] [address] VIR VITAMIN D 25 HYDROXYon 12-07 VITAMIN D 25 HYD TOT 11.4 ng/mL Low 30.0-100.0 [facility] Comment on above: Order Comment: Vitam in D status 25 [place] Vitamin D Deficiency <20 ng/mLInsufficiency 20-29 ng/mLSufficiency 30-100 ng/mLToxicity >100 ng/mLNOTE: A pediatric reference range has not been established by the solid tire tuber machine operator of this kit. The [place] [employer] recommends a Vitamin D level of = or >20ng/mL in infants and children. Performed By: #### V ITD ####[facility] ([facility])[address] [address] VIR Vitamin B12on 12-07-2024 Cobalamin (Vitamin B12) [Mass/Vol] 241 pg/mL 180 - 914 pg/mL [facility] Interpretation and review of laboratory results Normal [facility] Vitamin D 25 hydroxyon 07-13 -2025 25-hydroxyvitamin D3 [Mass/Vol] 11.4 ng/mL Low 30.0 - 100.0 ng/mL [facility] Interpretation and review of laboratory results Abnormal [facility] Vitamin D status 25 [place] Vitamin D ---- Deficiency <20 ng/mL Insufficiency 20-29 ng/mL Sufficiency 30-100 ng/mL Toxicity >100 ng/mL NOTE: A pediatric reference range has not been established by the solid tire tuber machine operator of this kit. The [place] [employer] recommends a Vitamin D level of = or >20ng/mL in infants and children. [employer] [facility] XR CHEST 1 VWon 12-07-2024 XR CHEST 1 VW XR CHEST 1 VW CLINICAL INFORMATION: Shortness of breath COMPARISON: Chest radiograph dated 12/06/2024. VIEWS: 1. FINDINGS: Stable cardiomegaly. Moderate right pleural effusion has increased from prior exam. Stable right basilar atelectasis. No new infiltrates. No pneumothorax. No free air below the diaphragm. IMPRESSION: Moderate right pleural effusion has increased from prior exam. Stable right basilar atelectasis. Finalized by Lou Gan MD on 12/07/2024 10:38 AM Normal [facility] XR Chest Single viewon 12-07 CLINICAL INFORMATION : Shortness of breath COMPARISON: Chest radiograph dated 12/06/2024. VIEWS: 1. FINDINGS: Stable cardiomegaly. Moderate right pleural effusion has increased from prior exam. Stable right basilar atelectasis. No new infiltrates. No pneumothorax. No free air below the diaphragm. IMPRESSION: Moderate right pleural effusion has increased from prior exam. Stable right basilar atelectasis. Finalized by Lou Gan MD on 12/07/2024 10:38 AM Lou Carl MD - 12/07/2024 CLINICAL INFORMATION: Shortness of breath COMPARISON: Chest radiograph dated 12/06/2024. VIEWS: 1. FINDINGS: Stable cardiomegaly. Moderate right pleural effusion has increased from prior exam. Stable right basilar atelectasis. No new infiltrates. No pneumothorax. No free air below the diaphragm. IMPRESSION: Moderate right pleural effusion has increased from prior exam. Stable right basilar atelectasis. Finalized by Lou Gan MD on 12/07/2024 10:38 AM [facility] Radiology Study observation (narrative) [facility] XR Chest Single viewOrdered By: Lou Gan on 12-07-2024 [facility] Work Phone: APTTon 12-06-2024 aPTT Coag (PPP) [Time] 31 s [facility] aPTT Coag (Bld) [Time] 31 s Normal 26-37 [facility] Comment on above: Performed By: #### P TT #### [facility] ([address] [address] VIR B-TYPE NATRIURETIC PEPTIDEon 12-06-2024 Natriuretic peptide B (Bld) [Mass/Vol] 851 pg/mL High <=100 [facility] Comment on above: Performed By: #### B MISSION WORKER #### [facility] ([address] [address] VIR B-type natriuretic peptideOr dered By: Sujata Ortega on 12-06-2024 Interpretation and review of laboratory results Abnormal [facility] Natriuretic peptide B (Bld) [Mass/Vol] 851 pg/mL High NINF - 100 pg/mL [facility] BASIC METABOLIC PANELon 11-25 Anion gap [Moles/Vol] 7 mmol/L Normal 5-15 [facility] Comment on above: Performed By: #### B MP ####[facility] ([address] [address] VIR Calcium [Mass/Vol] 8.5 mg/dL Normal 8.5-10.5 [facility] Comment on above: Performed By: #### B MP ####[facility] ([address] [place] [address] VIR Chloride [Moles/Vol] 103 mmol/L Normal 98-109 [facility] Comment on above: Performed By: #### B MP ####[facility] ([address] [place] [address] VIR CO2 [Moles/Vol] 30 mmol/L Normal 22-32 [facility] Comment on above: Performed By: #### B MP ####[facility] ([address] [place] [address] VIR Creatinine [Mass/Vol] 1.63 mg/dL High 0.40-1.00 [facility] Comment on above: Result Comment: METH OD TRACEABLE TO IDMS STANDARD Performed By: #### B MP ####[facility] ([address] [place] [address] VIR GFR/1.73 sq M.predicted among non-blacks MDRD (S/P/Bld) [Vol rate/Area] 31 mL/min/{1.73_m2} Low >=60 [facility] Comment on above: Result Comment: eGFR not reported due to non-numeric value for Creatinine. Reported eGFR is based on the CKD-EPI 2021 equation that does not use a race coefficient. Performed By: #### B MP ####[facility] ([address] [place] [address] VIR Glucose [Mass/Vol] 153 mg/dL High 65-99 [facility] Comment on above: Performed By: #### B MP ####[facility] ([address] [place] [address] VIR Potassium [Moles/Vol] 3.1 mmol/L Low 3.5-5.0 [facility] Comment on above: Performed By: #### B MP ####[facility] ([address] [place] [address] VIR Sodium [Moles/Vol] 140 mmol/L Normal 134-146 [facility] Comment on above: Performed By: #### B MP ####[facility] ([address] [place] [address] VIR Urea nitrogen [Mass/Vol] 29 mg/dL High 5-27 [facility] Comment on above: Performed By: #### B MP ####[facility] ([address] [place] [address] VIR BLOOD GAS, VENOUSon 12-07-19 25 BASE,EXCESS 4.0 mmol/L High 0.0-2.0 [facility] Comment on above: Performed By: #### V BG #### [facility] ([address] [address] VIR HCO3 (Bld) [Moles/Vol] 30.6 mmol/L High 20.0-24.0 [facility] Comment on above: Performed By: #### V BG #### [facility] ([address] [place] [address] VIR INSP. O2 CONC. 36 % Normal [facility] Comment on above: Performed By: #### V BG #### [facility] ([address] [place] [address] VIR Oxygen saturation in Blood 51.0 % Normal [facility] Comment on above: Performed By: #### V BG #### [facility] ([address] [place] [address] VIR PCO2 VENOUS 52.6 mmHg High 35.0-50.0 [facility] Comment on above: Performed By: #### V BG #### [facility] ([address] [place] [address] VIR PH VENOUS 7.372 Normal 7.320-7.42 0 [facility] Comment on above: Performed By: #### V BG #### [facility] ([facility]) [address] [place] [address] VIR PO2 VENOUS 28 mmHg Low 30-50 [facility] Comment on above: Performed By: #### V BG #### [facility] ([facility]) [address] [place] [address] VIR POC VERNELL'S TEST N/A Normal [facility] Comment on above: Performed By: #### V BG #### [facility] ([facility]) [address] [place] [address] [place] [address] VIR SAMPLE SITE N/A Normal [facility] Comment on above: Performed By: #### V BG #### [facility] ([facility]) [address] [place] [address] [place] [address] VIR SAMPLE TYPE VENOUS Normal [facility] Comment on above: Performed By: #### V BG #### [facility] ([facility]) [address] [place] [address] [place] [address] VIR SOURCE OF OXYGEN NC Normal [facility] Comment on above: Performed By: #### V BG #### [facility] ([facility]) [address] [place] [address] [place] [address] VIR BLOOD GAS, VENOUS VBG BLOOD GAS, VENOU S Cancelled Normal [facility] Basic Metabolic Panelon 11-25 Anion gap [Moles/Vol] 7 mmol/L 5 - 15 mmol/L [facility] Calcium [Mass/Vol] 8.5 mg/dL 8.5 - 10. 5 mg/dL [facility] Chloride [Moles/Vol] 103 mmol/L 98 - 10 9 mmol/L [facility] CO2 [Moles/Vol] 30 mmol/L 22 - 32 mmol/L [facility] Creatinine [Mass/Vol] 1.63 mg/dL High 0.40 - 1.00 mg/dL [facility] Comment on above: METHOD TRACEABLE TO IDMS STANDARD EGFR Non-Race Dependent 31 Low - PINF [facility] Comment on above: eGFR not reported du e to non-numeric value for Creatinine. Reported eGFR is based on the CKD-EPI 2020 equation that does not use a race coefficient. Glucose [Mass/Vol] 153 mg/dL High 65 - 99 mg/dL [facility] Potassium [Moles/Vol] 3.1 mmol/L Low 3.5 - 5.0 mmol/L [facility] Sodium [Moles/Vol] 140 mmol/L 134 - 146 mmol/L [facility] Urea nitrogen [Mass/Vol] 29 mg/dL High 5 - 27 mg/dL [facility] CBC WITH AUTO DIFFERENTIALon 12-06-2024 BASOPHILS ABSOLUTE COUNT (10*3/UL) BY AUTOMATED COUNT 0.1 10*3/uL Normal 0.0-0.2 [facility] Comment on above: Performed By: #### C BCA #### [address] [address] VIR BASOPHILS RELATIVE PERCENT BY AUTOMATED COUNT 1.0 % Normal [facility] Comment on above: Performed By: #### C BCA #### [facility] ([address] [address] VIR CELLAVISION DIFFERENTIAL TYPE AUTOMATED DIFFERENTIAL Normal [facility] Comment on above: Performed By: #### C BCA #### [facility] ([address] [address] VIR Eosinophils (Bld) [#/Vol] 0.1 10*3/uL Normal 0.0-0.4 [facility] Comment on above: Performed By: #### C BCA #### [facility] ([address] [address] VIR EOSINOPHILS RELATIVE PERCENT BY AUTOMATED COUNT 2.1 % Normal [facility] Comment on above: Performed By: #### C BCA #### [facility] ([address] [address] VIR Erythrocyte distribution width (RBC) [Ratio] 19.1 % High 11.5-15 [facility] Comment on above: Performed By: #### C BCA #### [facility] ([address] [address] VIR Hematocrit (Bld) [Volume fraction] 33.3 % Low 35-47 [facility] Comment on above: Performed By: #### C BCA #### [facility] ([address] [address] VIR Hemoglobin (Bld) [Mass/Vol] 10.8 g/dL Low 11.7-15.5 [facility] Comment on above: Performed By: #### C BCA #### [facility] ([address] [address] VIR LYMPHOCYTES ABSOLUTE COUNT (10*3/UL) BY AUTOMATED COUNT 0.6 10*3/uL Low 1.0-3.5 [facility] Comment on above: Performed By: #### C BCA #### [facility] ([address] [address] VIR LYMPHOCYTES RELATIVE PERCENT BY AUTOMATED COUNT 9.9 % Normal [facility] Comment on above: Performed By: #### C BCA #### [facility] ([address] [address] VIR MCH (RBC) [Entitic mass] 27.7 pg Normal 27-34 [facility] Comment on above: Performed By: #### C BCA #### [facility] ([address] [address] VIR MCHC (RBC) [Mass/Vol] 32.5 g/dL Normal 32-36 [facility] Comment on above: Performed By: #### C BCA #### [facility] ([address] [address] VIR MCV (RBC) [Entitic vol] 85 fL Normal 80-100 [facility] Comment on above: Performed By: #### C BCA #### [facility] ([address] [address] VIR MONOCYTES ABSOLUTE COUNT (10*3/UL) BY AUTOMATED COUNT 0.3 10*3/uL Normal 0.0-0.9 [facility] Comment on above: Performed By: #### C BCA #### [facility] ([address] [address] VIR MONOCYTES RELATIVE PERCENT BY AUTOMATED COUNT 4.9 % Normal [facility] Comment on above: Performed By: #### C BCA #### [facility] ([address] [address] VIR NEUTROPHILS ABSOLUTE COUNT BY AUTOMATED COUNT 4.8 10*3/uL Normal 1.5-6.6 [facility] Comment on above: Performed By: #### C BCA #### [facility] ([address] [address] VIR NEUTROPHILS RELATIVE PERCENT BY AUTOMATED COUNT 82.1 % Normal [facility] Comment on above: Performed By: #### C BCA #### [facility] ([address] [address] VIR Platelet mean volume (Bld) [Entitic vol] 8.4 fL Normal 7-12 [facility] Comment on above: Performed By: #### C BCA #### [facility] ([address] [address] VIR Platelets (Bld) [#/Vol] 191 10*3/uL Normal 150-450 [facility] Comment on above: Performed By: #### C BCA #### [facility] ([address] [address] VIR RBC COUNT 3.90 X10E12/L Normal 3.8-5.2 [facility] Comment on above: Performed By: #### C BCA #### [facility] ([facility]) [address] [place] [address] VIR WBC (Bld) [#/Vol] 5.9 10*3/uL Normal 4-11 [facility] Comment on above: Performed By: #### C BCA #### [facility] ([facility]) [address] [place], [place] [address], [place] [address] VIR CBC auto differentialon 11-25 Basophils (Bld) [#/Vol] 0.1 10*3/uL 0.0 - 0.2 10*3/uL [facility] Basophils/100 WBC (Bld) 1 % [facility] Differential cell count method Nom (Bld) AUTOMATED DIFFERENTIAL [facility] Eosinophils (Bld) [#/Vol] 0.1 10*3/uL 0.0 - 0.4 10*3/uL [facility] Eosinophils/100 WBC (Bld) 2.1 % [facility] Erythrocyte distribution width (RBC) [Ratio] 19.1 % High 11.5 - 15 % [facility] Hematocrit (Bld) [Volume fraction] 33.3 % Low 35 - 47 % [facility] Hemoglobin (Bld) [Mass/Vol] 10.8 g/dL Low 11.7 - 15.5 g/dL [facility] Interpretation and review of laboratory results Abnormal [facility] Lymphocytes (Bld) [#/Vol] 0.6 10*3/uL Low 1.0 - 3.5 10*3/uL [facility] Lymphocytes/100 WBC (Bld) 9.9 % [facility] MCH (RBC) [Entitic mass] 27.7 pg 27 - 34 pg [facility] MCHC (RBC) [Mass/Vol] 32.5 g/dL 32 - 3 6 g/dL [facility] MCV (RBC) [Entitic vol] 85 fL 80 - 100 fL [facility] Monocytes (Bld) [#/Vol] 0.3 10*3/uL 0.0 - 0.9 10*3/uL [facility] Monocytes/100 WBC (Bld) 4.9 % [facility] Neutrophils (Bld) [#/Vol] 4.8 10*3/uL 1.5 - 6.6 10*3/uL [facility] Neutrophils/100 WBC (Bld) 82.1 % [facility] Platelet mean volume (Bld) [Entitic vol] 8.4 fL 7 - 12 fL [facility] Platelets (Bld) [#/Vol] 191 10*3/uL [facility] RBC (Bld) [#/Vol] 3.9 10*6/uL [facility] WBC LM Ql (Sput) 5.9 [facility] ECG 12 leadon 12-06-2024 TRACEMASTERVUE [facility] Gas panel (BldV)on 5 Arterial patency Wrist artery --pre arterial puncture N/A [facility] Base excess Calc (Bld) [Moles/Vol] 4 mmol/L High 0.0 - 2.0 mmol/L [facility] CO2 (BldV) [Partial pressure] 52.6 mm[Hg] High [facility] HCO3 (Bld) [Moles/Vol] 30.6 mmol/L High 20.0 - 24.0 mmol/L [facility] Interpretation and review of laboratory results Abnormal [facility] Oxygen (BldV) [Partial pressure] 28 mm[Hg] Low [facility] Oxygen therapy source and amount [CARE] NC [facility] Oxygen/Inspired gas setting [Volume Fraction] Ventilator 36 % [facility] pH (BldV) 7.372 [pH] 7.320 - 7.420 [facility] SaO2% Calculated from oxygen partial pressure (BldV) [Mass fraction] 51 % [facility] Specimen site Narrative N/A [facility] Specimen type Nom (Spec) VENOUS [facility] LACTATE W/ REFLEXon 12-07-19 25 LACTATE W/REFLEX 2.1 mmol/L High 0.4-2.0 [facility] Comment on above: Performed By: #### L ACTS #### [facility] ([place]) [address] [place] [address] VIR Lactate w/ Reflexon 12-07-19 Interpretation and review of laboratory results Abnormal [facility] Lactate (P chloe) [Moles/Vol] 2.1 mmol/L High 0.4 - 2.0 mmol/L [facility] MAGNESIUMon 12-06-2024 Magnesium [Mass/Vol] 1.3 mg/dL Low 1.8-2.6 [facility] Comment on above: Performed By: #### M G ####[facility] ([address] [address] VIR Magnesiumon 12-06-2024 Magnesium [Mass/Vol] 1.3 mg/dL Low 1.8 - 2 .6 mg/dL [facility] No Panel Informationon 12-06 Interpretation and review of laboratory results Abnormal [facility] Interpretation and review of laboratory results Normal [facility] PROTIME AND INRon 12-06-2024 INR 1.1 Normal 0.9-1.2 [facility] Comment on above: Performed By: #### P INR #### [facility] ([address] [address] VIR PT Coag (PPP) [Time] 12.6 s Normal 9.8-13.2 [facility] Comment on above: Performed By: #### P INR #### [address] [address] VIR Protime & INRon 12-06-2024 INR Coag (Platelet poor plasma or blood) [Relative time] 1.1 0.9 - 1.2 [facility] PT Coag (PPP) [Time] 12.6 s [facility] RESP PATHOGENS PANEL/SARS-CO V-2on 12-06-2024 SARS-CoV-2 (COVID-19) RNA YUMIKO+probe Ql (Resp) SARS COV 2 BY PCR Not Detected ADENOVIRUS Not Detected CORONAVIRUS 229E Not Detected CORONAVIRUS HKU1 Not Detected CORONAVIRUS NL63 Not Detected CORONAVIRUS OC43 Not Detected HUMAN METAPNEUVIRUS Not Detected RHINO/ENTEROVIRUS Not Detected INFLUENZA A Not Detected INFLUENZA B Not Detected PARAINFLUENZA 1 Not Detected PARAINFLUENZA 2 Not Detected PARAINFLUENZA 3 Not Detected PARAINFLUENZA 4 Not Detected RESP SYNCYTIAL VIRUS Not Detected BORD PARAPERTUSSIS Not Detected BORDETELLA PERTUSSIS Not Detected CHLAM.PNEUMONIAE Not Detected MYCOPLASMA PNEUMONIAE Not Detected Normal Not Detected [facility] Comment on above: Order Comment: The [employer] Respiratory Panel 2.1 (RP2.1) is a multiplexed nucleic acid test intended for the simultaneous qualitative detection and differentiation of nucleic acid from multiple viral and bacterial respiratory organisms, including nucleic acid from Severe Acute Respiratory Syndrome Coronavirus 2 (SARS-CoV-2), in nasopharyngeal swabs obtained from individuals suspected of COVID-19 by their healthcare provider. Testing is limited to laboratories certified under the Clinical Laboratory Improvement Amendments of 1988 (CLIA), to perform high complexity or moderate complexity tests.SARS-CoV-2 RNA and nucleic acids from the other respiratory viral and bacterial organisms identified by this test are generally detectable in nasopharyngeal swabs during the acute phase of infection. The detection and identification of specific viral and bacterial nucleic acids from individuals exhibiting signs and/or symptoms of respiratory infection is indicative of the presence of the identified microorganism and aids in the diagnosis of respiratory infection if used in conjunction with other clinical and epidemiological information. Positive results are indicative of the presence of the identified organism, but do not rule out co-infection with other pathogens. The agent(s) detected by the [employer]te RP2.1 may not be the definite cause of disease and clinical correlation with patient history and other diagnostic information is necessary to determine patient infection status.Negative results in the setting of a respiratory illness may be due to infection with pathogens not detected by this test, or lower respiratory tract infection that may not be detected by a nasopharyngeal specimen. Negative results do not preclude SARS-CoV-2 infection and should not be used as the sole basis for patient management decisions. Negative SHAE-CoV-2 results must be combined with clinical observations, patient history and epidemiological information. Negative results for other organisms identified by the test may require additional laboratory testing when evaluating a patient with possible respiratory tract infection. Performed By: #### R EPPCV ####[facility] ([facility])[address] [id number] VIR SARS-CoV-2 (COVID-19) RNA NA A+probe Ql (Resp)on 12-06-2024 FLUAV RNA YUMIKO+probe Ql (Resp) Negative Negative [facility] FLUBV RNA YUMIKO+probe Ql (Resp) Negative Negative [facility] Interpretation and review of laboratory results Normal [facility] RSV RNA YUMIKO+probe Nom (Unsp spec) Negative Negative [facility] The Xpert Xpress SARS-CoV-2/Flu/RSV Plus test is a rapid, multiplexed real-time RT-PCR test intended for the simultaneous qualitative detection and differentiation of SARS-CoV-2, influenza A, influenza B and respiratory syncytial virus (RSV) viral RNA from individuals suspected of respiratory viral infection consistent with COVID-19 by Their healthcare provider. This test has not been validated in asymptomatic patients. The Xpert Xpress SARS-CoV-2 test is intended for use by qualified and trained operators who are performing tests using either Company or [employer] systems and is limited to laboratories that [...] acute phase of infection. Positive results are Indicative of the presence of the identified virus, [...] specimen repeat. Fact Sheet for Healthcare Providers: https://www.fda.gov/medi a/814733/download Fact Sheet for Patients: https://www.fda.gov/medi a/303591/download [facility] SARS/FLU A+B/RSV BY NAAT/MOL ECULAR (M4RT COLLECTION TUBE)on 12-06-2024 SARS/FLU A+B/RSV BY NAAT/MOLECULAR (M4RT COLLECTION TUBE) FLU A PCR Negative FLU B PCR Negative RSV BY PCR Negative SARS COV 2 BY PCR Not Detected Normal Not Detected [facility] Comment on above: Order Comment: The echoecho Xpress SARS-CoV-2/Flu/RSV Plus test is a rapid, multiplexed real-time RT-PCR test intended for the simultaneous qualitative detection and differentiation of SARS-CoV-2, influenza A, influenza B and respiratory syncytial virus (RSV) viral RNA from individuals suspected of respiratory viral infection consistent with COVID-19 by Their healthcare provider. This test has not been validated in asymptomatic patients. The Xpert Xpress SARS-CoV-2 test is intended for use by qualified and trained operators who are performing tests using either Company or [employer] systems and is limited to laboratories that [...] acute phase of infection. Positive results are Indicative of the presence of the identified virus, [...] inhibition unable to be resolved with specimen repeat.Fact Sheet for Healthcare Providers:https://www.fda.gov/media/526069/downloadFact Sheet for Patients:https://www.fda.gov/media/667302/download Performed By: #### C OVFLR ####[facility] ([address] [address] VIR SARS/FLU A+B/RSV by NAAT/Mol ecular (M4RT Collection Tube)on 12-06-2024 SARS-CoV-2 (COVID-19) RNA YUMIKO+probe Ql (Resp) Not detected Not Detected [facility] TROP I, HIGH SENSITIVITY 1 H OURon 12-06-2024 TROPONIN I, HIGH SENSITIVITY 18 ng/L High <16 [facility] Comment on above: Order Comment: [place] tions of hs-Troponin may be due to causesother than myocardial ischemia.Recommend serial hs-Troponin testing be performed.For the initial evaluation and management of chestpain patients, refer to the algorithms linked below.Emergency Patient:[email or web address]:[email or web address] Performed By: #### T NIHS1 ####[facility] ([address] [address] VIR TROPONIN I, HIGH SENSITIVITY 0 HOURon 12-06-2024 TROPONIN I, HIGH SENSITIVITY 18 ng/L High <16 [facility] Comment on above: Performed By: #### T NIHS0 ####[facility] ([address] [address] VIR Troponin I, High Sensitivity 0 Houron 12-06-2024 Interpretation and review of laboratory results Abnormal [facility] Troponin I.cardiac High sensitivity method [Mass/Vol] 18 ng/L High NINF - 16 ng/L [facility] Troponin I, High Sensitivity 1 Houron 12-06-2024 Interpretation and review of laboratory results Abnormal [facility] Troponin I.cardiac High sensitivity method [Mass/Vol] 18 ng/L High NINF - 16 ng/L [facility] Elevations of hs-Troponin may be due to causes other than myocardial ischemia. Recommend serial hs-Troponin testing be performed. For the initial evaluation and management of chest pain patients, refer to the algorithms linked below. Emergency Patient: [email or web address] Inpatient: [email or web address] [facility] XR CHEST 1 VWon 12-06-2024 XR CHEST 1 VW XR CHEST 1 VW XR CHEST 1 VW HISTORY: Dyspnea COMPARISON: Chest radius 12/25/2023, 10/19/2023, and 10/10/2023. FINDINGS: Patient is rotated to the right. Enlarged cardiomediastinal silhouette. Worsening pulmonary vascular congestion with increasing size of right pleural effusion. Hazy left basilar airspace opacities. IMPRESSION: * Cardiomegaly with interstitial edema. There is a moderate right pleural effusion with adjacent atelectasis. Approved by Resident Jere Coleman MD on 12/06/2024 9:21 PM Gm Baeza MD have personally reviewed the image(s) and agree with and/or edited the report Finalized by Gm Carter MD on 12/06/2024 9:27 PM Normal [facility] XR Chest Single viewon 12-06 XR CHEST 1 VW HISTORY: Dyspnea COMPARISON: Chest radius 12/25/2023, 10/19/2023, and 10/10/2023. FINDINGS: Patient is rotated to the right. Enlarged cardiomediastinal silhouette. Worsening pulmonary vascular congestion with increasing size of right pleural effusion. Hazy left basilar airspace opacities. IMPRESSION: * Cardiomegaly with interstitial edema. There is a moderate right pleural effusion with adjacent atelectasis. Approved by Resident Jere Coleman MD on 12/06/2024 9:21 PM Gm Baeza MD have personally reviewed the image(s) and agree with and/or edited the report Finalized by Gm Carter MD on 12/06/2024 9:27 PM [employer] Gm Carter MD - 12/06/2024 XR CHEST 1 VW HISTORY: Dyspnea COMPARISON: Chest radius 12/25/2023, 10/19/2023, and 10/10/2023. FINDINGS: Patient is rotated to the right. Enlarged cardiomediastinal silhouette. Worsening pulmonary vascular congestion with increasing size of right pleural effusion. Hazy left basilar airspace opacities. IMPRESSION: * Cardiomegaly with interstitial edema. There is a moderate right pleural effusion with adjacent atelectasis. 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 Computer aided detection was utilized. FINDINGS: The breasts are heterogeneously dense, which may obscure small masses. There are no suspicious masses, calcifications, or areas of architectural distortion. IMPRESSION: No mammographic evidence of malignancy. BI-RADS: BI-RADS 1 - Negative RECOMMENDATION: Routine screening mammogram in 1 year. Given personal history of malignancy, consider supplemental screening with MRI. RISK ASSESSMENT: TC Lifetime risk: --%. Tyrer-Cuzick score not calculated. The TC risk model does not apply to patients with a personal history of breast malignancy, those over the age of 84, male, or transgender patients. Finalized by Thien Ulrich MD on 11/20/2024 2:24 PM 1 c MAMM 1 YR [facility] Office Visiton 11-07-2024 Follow-up visit [id number] Sophie Ly 1940 F Date Provider Department Center 11/07/2024 [id number], ADAM CARD [facility] No family history on file Level of Service:40650 [place] OFFICE/OUTPATIENT ESTABLISHED MOD MDM 30 MIN [facility] 36on 08-21-2024 36 Spoke with patient a nd [facility] I advised [facility] to get [facility] with [facility], or possibly Dr. Hayden for possible UTI per Dr. Martinez. Told her she does not need extra dose of lasix for 3-4# weight gain over the course of 3-4 days UNLESS she has worsening SOB. I asked her to let me know how she's doing early next week. She verbalized understanding. Lab results faxed to Dr. Hayden. [facility] 36 Patient called to [place] aware of 4# weight gain in 3 days. She is not more SOB, minimal LE edema. I verified that she's taking 40mg of lasix in the AM and 20mg in the PM. She just had labs at the [facility], which I have scanned into interactive media project manager for your review. Any recommendations? Thanks. [facility] CREATININEon 06-04-2024 Creatinine [Mass/Vol] 1.47 mg/dL High 0.40-1.00 [facility] Comment on above: Result Comment: METH OD TRACEABLE TO IDMS STANDARD Performed By: #### C RT #### [facility] ([id number]) [address] [place] [address], [place] [address] GFR/1.73 sq M.predicted among non-blacks MDRD (S/P/Bld) [Vol rate/Area] 36 mL/min/{1.73_m2} Low >59 [facility] Comment on above: Result Comment: Reported eGFR is based on the CKD-EPI 2020 equation that does not use a race coefficient. 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 100 mL of Omnipaque 300 given. Automated exposure control was utilized. All CT scans at this facility use dose modulation, iterative reconstruction, and/or weight based dosing when appropriate to reduce radiation dose to as low as reasonably achievable. FINDINGS: LUNG/PLEURA: Small to moderate sized right pleural effusion. Dependent right lower lung lobe consolidation, likely compressive atelectasis. Stable right apical scarring. Mild bronchiectasis. No new suspicious pulmonary nodules. HEART and GREAT VESSELS: Mild cardiomegaly with biatrial dilatation. Trace anterior pericardial effusion. Heavy coronary artery atherosclerotic calcifications. Dilatation of the main pulmonary trunk measuring up to 3.7 cm. The thoracic aorta is not significantly dilated. MEDIASTINUM and LYMPH NODES: Indeterminate prominent mediastinal lymph nodes measuring up to 8 mm in short axis dimension, similar to prior. UPPER ABDOMEN: No acute findings in the visualized upper abdomen. MUSCULOSKELETAL AND LOWER NECK Status post right mastectomy. No aggressive or suspicious osseous lesions. IMPRESSION: Moderate-sized right pleural effusion with adjacent compressive atelectasis of the right lower lung lobe. Dilatation of the main pulmonary trunk compatible with pulmonary arterial hypertension. Small to moderate right pleural effusion. Approved by Resident: Thony Alvarez DO on 06/04/2024 3:21 PM IWilberto MD have personally reviewed the image(s) and agree with and/or edited the report Finalized by Wilberto Ramirez MD on 06/04/2024 3:48 PM Normal [facility] Follow-Upon 04-28-2024 Follow-Up [id number] Sophie Lya L 1940 F Date Provider Department Center 04/28/2024 Shyann-PAUL MARTINEZ [facility] No family history on file Level of Service:01797 [place] OFFICE/OUTPATIENT ESTABLISHED LOW MDM 20 MIN Normal [facility] Glucose (Bld) [Mass/Vol]Orde red By: Tere Carey on 03-12-2024 Glucose Blood, POC 152 mg/dL [facility] e HbA1c (Bld) [Mass fraction]o n 03-12-2024 [facility] - Hematology and Cell countson 03-12-2024 HbA1c (Bld) [Mass fraction] 7.1 % [facility] 37on 02-21-2024 37 *Cut metoprolol in h yaneth to 12.5mg daily. *Review your medications at home and call us [phone] to confirm your medications. Normal [facility] Office Visiton 02-21-2024 Follow-up visit [id number] Sophie Ly nna L 1940 F Date Provider Department Center 02/21/2024 CARLOS EDUARDO GUZMAN [facility] No family history on file Level of Service:54804 [place] OFFICE/OUTPATIENT ESTABLISHED MOD MDM 30 MIN Reason for Visit and Comments: Congestive Heart Failure [127] Coronary Artery Disease [187] Hypertension [682144] Normal [facility] ALL BASIC METABOLIC PANELon 01-15-2024 Anion gap [Moles/Vol] 12.7 mmol/L NO [facility] Calcium [Mass/Vol] 9.6 mg/dL 8.5 - 10. 1 mg/dL [facility] Chloride [Moles/Vol] 102 mmol/L 98 - 10 7 mmol/L [facility] CO2 [Moles/Vol] 33.3 mmol/L High 21.0 - 32.0 mmol/L [facility] Creatinine [Mass/Vol] 1.48 mg/dL High 0.55 - 1.02 mg/dL [facility] GFR/1.73 sq M.predicted CKD-EPI (S/P/Bld) [Vol rate/Area] 41 Low 60 - PINF [facility] Glucose [Mass/Vol] 129 mg/dL High 74 - 106 mg/dL [facility] Interpretation and review of laboratory results Abnormal [facility] Potassium [Moles/Vol] 4.0 mmol/L 3.5 - 5.1 mmol/L [facility] Sodium [Moles/Vol] 144 mmol/L 136 - 145 mmol/L [facility] TBH EGFR-NON AF INDIAN 34 Low 60 - PINF [facility] Urea nitrogen [Mass/Vol] 31.0 mg/dL High 7.0 - 18.0 mg/dL [facility] Urea nitrogen/Creatinine [Mass ratio] 20.9 mg/mg [facility] AFB Specimen Processingon AFB Specimen Processing Comment TUBE 2 Direct Inoculation Comment TUBE 2 Negative Performed at: [address] [id number] Division Leader: Gen Kelly PhD, Phone: [phone] Comment TUBE 2 Negative No acid fast bacilli isolated after 6 weeks. Performed at: [address] [id number] Division Leader: Gen Kelly PhD, Phone: [phone] PERFORMED BY: [place] [address] PATHOLOGIST [employer] INSULATOR ARELY ROSSI M.D. Normal [facility] Comment on above: Performed By: #### Phoenix Khan, BMP #### [address] Aerobic Cultureon 12-29-2023 Aerobic Culture Comment TUBE 2 No Growth 2 Days Comment TUBE 2 No Anaerobes Isolated 3 Days Comment TUBE 2 Gram Stain Result 1+ White Blood Cells No Bacteria Seen No Yeast Like Elements Seen No Fungal Like Elements Seen No Red Blood Cells Seen PERFORMED BY: [place] [address] PATHOLOGIST ROCK [employer] INSULATOR ARELY ROSSI M.D. Normal [facility] Comment on above: Performed By: #### Phoenix G, BMP #### [address] Basic Metabolic Panelon 08-0 Anion gap [Moles/Vol] 10.2 mmol/L Normal 6.0-15.0 [facility] Comment on above: Performed By: #### A DDONUAPLUS #### [address] Calcium [Mass/Vol] 8.9 mg/dL Normal 8.6-10.3 [facility] Comment on above: Performed By: #### A DDONUAPLUS #### [address] Chloride [Moles/Vol] 96 mmol/L Low 98-107 [facility] Comment on above: Performed By: #### A DDONUAPLUS #### [address] CO2 [Moles/Vol] 39.7 mmol/L High 21.0-31.0 [facility] Comment on above: Performed By: #### A DDONUAPLUS #### [address] Creatinine [Mass/Vol] 1.56 mg/dL High 0.60-1.20 [facility] Comment on above: Performed By: #### A DDONUAPLUS #### [address] Creatinine Clr Calc Pharmacy 29.85 Normal [facility] Comment on above: Performed By: #### A DDONUAPLUS #### [place] [address] [place] GFR/1.73 sq M.predicted MDRD (S/P/Bld) [Vol rate/Area] 33.194 mL/min/{1.73_m2} Normal [facility] Comment on above: Performed By: #### A DDONUAPLUS #### [address] Glucose [Mass/Vol] 124 mg/dL High 70-100 [facility] Comment on above: Result Comment: [place] Glucose Reference Range is dependent on time and content of last meal. Glucose of more than 200 mg/dL in a nonstressed, ambulatory subject supports the diagnosis of Diabetes Mellitus. ADA recommended reference range Performed By: #### A DDONUAPLUS #### [facility] [address] Potassium [Moles/Vol] 3.9 mmol/L Normal 3.5-5.1 [facility] Comment on above: Performed By: #### A DDONUAPLUS #### [address] Sodium [Moles/Vol] 142 mmol/L Normal 136-145 [facility] Comment on above: Performed By: #### A DDONUAPLUS #### [address] Urea nitrogen [Mass/Vol] 34 mg/dL High 7-25 [facility] Comment on above: Performed By: #### A DDONUAPLUS #### [address] Cell Count/Diff, Fluidon Appearance, Fluid Hazy Normal [facility] Comment on above: Order Comment: Comme nt Purple top Body Fluid Source: Thoracentesis Fluid Body Fluid Site: right pleural fluid Result Comment: The reference interval and other method performance specifications have not been established for this body fluid. The test result must be integrated into the clinical context for interpretation. Performed By: #### M G, BMP #### [place] [address] [place] Color, Fluid Yellow Normal [facility] Comment on above: Order Comment: Comme nt Purple top Body Fluid Source: Thoracentesis Fluid Body Fluid Site: right pleural fluid Result Comment: The reference interval and other method performance specifications have not been established for this body fluid. The test result must be integrated into the clinical context for interpretation. Performed By: #### M G, BMP #### [place] [address] [place] Color, Fluid Supernatant Yellow Normal [facility] Comment on above: Order Comment: Comme nt Purple top Body Fluid Source: Thoracentesis Fluid Body Fluid Site: right pleural fluid Result Comment: The reference interval and other method performance specifications have not been established for this body fluid. The test result must be integrated into the clinical context for interpretation. Performed By: #### M G, BMP #### [facility] [address] [place] [id number] [facility] Eosinophils, Fluid 0 /100{WBC} Normal 0-3 [facility] Comment on above: Order Comment: Comme nt Purple top Body Fluid Source: Thoracentesis Fluid Body Fluid Site: right pleural fluid Performed By: #### M G, BMP #### [facility] [address] [place] [id number] [facility] Lymphocytes, Fluid 58 % Normal [facility] Comment on above: Order Comment: Comme nt Purple top Body Fluid Source: Thoracentesis Fluid Body Fluid Site: right pleural fluid Result Comment: The reference interval and other method performance specifications have not been established for this body fluid. The test result must be integrated into the clinical context for interpretation. Performed By: #### M G, BMP #### [place] [id number] [facility] Monocytes/Macrophages , Fluid 35 % Normal [facility] Comment on above: Order Comment: Comme nt Purple top Body Fluid Source: Thoracentesis Fluid Body Fluid Site: right pleural fluid Result Comment: The reference interval and other method performance specifications have not been established for this body fluid. The test result must be integrated into the clinical context for interpretation. Performed By: #### M G, BMP #### [facility] [address] [place], [place] [id number] [facility] Neutrophil, Fluid 3 % Normal [facility] Comment on above: Order Comment: Comme nt Purple top Body Fluid Source: Thoracentesis Fluid Body Fluid Site: right pleural fluid Result Comment: The reference interval and other method performance specifications have not been established for this body fluid. The test result must be integrated into the clinical context for interpretation. Performed By: #### M G, BMP #### [facility] [address] [place], [place] [id number] [facility] Other Mononuclear Cells, Fluid 4 % Normal [facility] Comment on above: Order Comment: Comme nt Purple top Body Fluid Source: Thoracentesis Fluid Body Fluid Site: right pleural fluid Result Comment: MESO THELIAL CELLS The reference interval and other method performance specifications have not been established for this body fluid. The test result must be integrated into the clinical context for interpretation. PERFORMED BY: [place] [address] PATHOLOGIST [employer] INSULATOR ARELY ROSSI M.D. Performed By: #### Phoenix Khan, BMP #### [address] RBC, Fluid 1106 Normal [facility] Comment on above: Order Comment: Comme nt Purple top Body Fluid Source: Thoracentesis Fluid Body Fluid Site: right pleural fluid Result Comment: The reference interval and other method performance specifications have not been established for this body fluid. The test result must be integrated into the clinical context for interpretation. Performed By: #### M G, BMP #### [address] TNC, Body Fluid 812 Normal [facility] Comment on above: Order Comment: Comme nt Purple top Body Fluid Source: Thoracentesis Fluid Body Fluid Site: right pleural fluid Result Comment: The reference interval and other method performance specifications have not been established for this body fluid. The test result must be integrated into the clinical context for interpretation. Performed By: #### M G, BMP #### [address] Fungal Smearon 12-29-2023 Fungal Smear Comment TUBE 2 Fungus Smear Results No Fungal Like Elements Seen No Yeast Like Elements Seen PERFORMED BY: [address] [place] [address] PATHOLOGIST [employer] INSULATOR ARELY ROSSI M.D. Normal [facility] Comment on above: Performed By: #### M G, BMP #### [address] Fungus (Mycology) Cultureon 12-29-2023 Fungus (Mycology) Culture Comment TUBE 2 Final report Comment TUBE 2 Comment No yeast or mold isolated after 4 weeks. Performed at: [address] [id number] Division Leader: Gen Kelly PhD, Phone: [phone] PERFORMED BY: [place] [address] PATHOLOGIST [employer] INSULATOR ARELY ROSSI M.D. Normal [facility] Comment on above: Performed By: #### G MAHAD #### Point of Care testing , Glucose, Fluidon 12-29-2023 Glucose, Fluid 204 mg/dL Normal [facility] Comment on above: Order Comment: Tube Number Tube 1 Result Comment: No r eference range established Performed By: #### M Bill, BMP #### [address] Gram Stainon 12-29-2023 Microscopic observation Gram stain Nom (Unsp spec) Comment TUBE 2 Gram Stain Result 1+ White Blood Cells No Bacteria Seen No Yeast Like Elements Seen No Fungal Like Elements Seen No Red Blood Cells Seen PERFORMED BY: [place] [address] PATHOLOGIST [employer] INSULATOR ARELY ROSSI M.D. Normal [facility] Comment on above: Performed By: #### Phoenix Khan, BMP #### [place] [address] [place] LDH, Fluidon 12-29-2023 LDH, Fluid 115 [IU]/mL Normal [facility] Comment on above: Order Comment: Tube Number Tube 1 Result Comment: No r eference range established Performed By: #### M Bill, BMP #### [place] [address] [place] Magnesiumon 12-29-2023 Magnesium [Mass/Vol] 2.3 mg/dL Normal 1.9-2.7 [facility] Comment on above: Result Comment: PERF ORMED BY: [place] [address] PATHOLOGIST [employer] INSULATOR ARELY ROSSI M.D. Performed By: #### A DDONUAPLUS #### [place] [address] [place] Total Protein, Fluidon 12-28 Total Protein, Fluid 4.1 g/dL Normal [facility] Comment on above: Order Comment: Tube Number Tube 1 Performed By: #### M G, BMP #### [facility] [address] [place], [place] [id number] [facility] Triglyceride, Fluidon 2023 Triglyceride, Fluid 23 mg/dL Normal [facility] Comment on above: Order Comment: Tube Number Tube 1 Result Comment: No r eference range established PERFORMED BY: [place] [address] PATHOLOGIST [employer] INSULATOR ARELY ROSSI M.D. Performed By: #### M G, BMP #### [address] XR chest 1V portableon 12-28 XR chest 1V portable [facility] [place] [address] [place] [address] XRay Report Signed Patient: Kay Ly MR#: [id number] : 1940 Acct:[id number] Age/Sex: 83 / F ADM Date: 12/26/23 Loc: Room: [address] [place] [address] Type: ADM IN Attending Dr: Trent Duarte DO Copies to: MD Trent Mcbride DO Ordering Provider: Eben Selby MD Date of Service: 12/29/23 XR/XR chest 1V portable: s/p thoracentesis; 800 mL removed Plain film chest Single view HISTORY: Status post RIGHT thoracentesis COMPARISON: 12/29/23 FINDINGS: SUPPORT DEVICES: None POSTSURGICAL CHANGES: None HEART: Continued cardiomegaly PULMONARY NEELIMA: Within normal limits MEDIASTINUM: Unremarkable LUNGS AND PLEURA: Near complete resolution of RIGHT pleural effusion. No developing pneumothorax. Mild atelectasis. BONY STRUCTURES: Intact ADDITIONAL FINDINGS None XR/XR chest 1V portable IMPRESSION: Near-complete resolution of RIGHT pleural effusion postthoracentesis. No developing pneumothorax. Impression dictated by: Chay Choi M.D.12/29/2023 4:05 PM Dictation Location: [place] [address] Transcribed By: [facility] 12/29/23 1605 Dictated By: Chay Choi DO 12/29/23 1603 Signed By: 12/29/23 1605 Normal [facility] XR chest 2V*on 12-29-2023 XR chest 2V* [facility] [place] [address] [place] [address] XRay Report Signed Patient: Kay Ly MR#: [id number] : 1940 Acct:[id number] Age/Sex: 83 / F ADM Date: 12/26/23 Loc: Room: [address] [place] [address] Type: ADM IN Attending Dr: Trent Duarte DO Copies to: MD Trent Mcbride DO Ordering Provider: Eben Selby MD Date of Service: 12/29/23 XR/XR chest 2V*: Reevaluate pleural effusion Plain film chest 2 view HISTORY: Reevaluate pleural effusion on the RIGHT COMPARISON: 12/26/23, CT chest 12/27/23 FINDINGS: SUPPORT DEVICES: None POSTSURGICAL CHANGES: None HEART: Similar cardiomegaly PULMONARY NEELIMA: Improved vascular congestion MEDIASTINUM: Unremarkable LUNGS AND PLEURA: Mildly decreased to moderate RIGHT pleural effusion. No pneumothorax. Atelectasis. BONY STRUCTURES: Intact ADDITIONAL FINDINGS None XR/XR chest 2V* IMPRESSION: Improving moderate RIGHT pleural effusion. Improved vascular congestion. Impression dictated by: Chay Choi M.D.12/29/2023 7:55 AM Dictation Location: [place] [address] Transcribed By: [facility] 12/29/23 0755 Dictated By: Chay Choi DO 12/29/23 0749 Signed By: 12/29/23 0755 Normal [facility] Basic Metabolic Panelon 08-0 Anion gap [Moles/Vol] 8.7 mmol/L Normal 6.0-15.0 [facility] Comment on above: Performed By: #### M ALLYSSA Khan #### [address] Calcium [Mass/Vol] 8.9 mg/dL Normal 8.6-10.3 [facility] Comment on above: Performed By: #### M G, BMP #### [facility] [address] Chloride [Moles/Vol] 97 mmol/L Low 98-107 [facility] Comment on above: Performed By: #### M G, BMP #### [facility] [address] CO2 [Moles/Vol] 40.2 mmol/L High 21.0-31.0 [facility] Comment on above: Performed By: #### Phoenix G, BMP #### [address] Creatinine [Mass/Vol] 1.14 mg/dL Normal 0.60-1.20 [facility] Comment on above: Performed By: #### M G, BMP #### [address] Creatinine Clr Calc Pharmacy 41.05 Normal [facility] Comment on above: Performed By: #### Phoenix Khan, BMP #### [place] [address] [place] GFR/1.73 sq M.predicted MDRD (S/P/Bld) [Vol rate/Area] 48.363 mL/min/{1.73_m2} Normal [facility] Comment on above: Performed By: #### Phoenix G, BMP #### [address] Glucose [Mass/Vol] 89 mg/dL Normal 70-100 [facility] Comment on above: Result Comment: [place] Glucose Reference Range is dependent on time and content of last meal. Glucose of more than 200 mg/dL in a nonstressed, ambulatory subject supports the diagnosis of Diabetes Mellitus. ADA recommended reference range Performed By: #### M G, BMP #### [address] Potassium [Moles/Vol] 3.9 mmol/L Normal 3.5-5.1 [facility] Comment on above: Performed By: #### M G, BMP #### [address] Sodium [Moles/Vol] 142 mmol/L Normal 136-145 [facility] Comment on above: Performed By: #### Phoenix Khan, BMP #### [address] Urea nitrogen [Mass/Vol] 34 mg/dL High 7-25 [facility] Comment on above: Performed By: #### Phoenix Khan, BMP #### [address] Glucose Poct Glucometerson 0 12-28-2023 Glucose [Mass/Vol] 179 mg/dL Normal [facility] Comment on above: Result Comment: [place] Glucose Reference Range is dependent on time and content of last meal. Glucose of more than 200 mg/dL in a nonstressed, ambulatory subject supports the diagnosis of Diabetes Mellitus. PERFORMED BY: [place] [address] PATHOLOGIST R[employer] INSULATOR ARELY ROSSI M.D. Performed By: #### A DDONUAPLUS #### [address] Glucose [Mass/Vol] 101 mg/dL Normal [facility] Comment on above: Result Comment: [place] Glucose Reference Range is dependent on time and content of last meal. Glucose of more than 200 mg/dL in a nonstressed, ambulatory subject supports the diagnosis of Diabetes Mellitus. PERFORMED BY: [place] [address] PATHOLOGIST R[employer] INSULATOR ARELY ROSSI M.D. Performed By: #### A DDONUAPLUS #### [place] [id number] [facility] Magnesiumon 12-28-2023 Magnesium [Mass/Vol] 2.1 mg/dL Normal 1.9-2.7 [facility] Comment on above: Result Comment: PERF ORMED BY: [place] [address] PATHOLOGIST [employer] INSULATOR ARELY ROSSI M.D. Performed By: #### Phoenix Khan, BMP #### [address] Basic Metabolic Panelon 08-0 Anion gap [Moles/Vol] 8.9 mmol/L Normal 6.0-15.0 [facility] Comment on above: Performed By: #### C K, PT, PTT, BNP, BMP, CBC, HS TROP #### [address] Calcium [Mass/Vol] 9.1 mg/dL Normal 8.6-10.3 [facility] Comment on above: Performed By: #### C K, PT, PTT, BNP, BMP, CBC, HS TROP #### [address] Chloride [Moles/Vol] 99 mmol/L Normal 98-107 [facility] Comment on above: Performed By: #### C K, PT, PTT, BNP, BMP, CBC, HS TROP #### [address] CO2 [Moles/Vol] 36.4 mmol/L High 21.0-31.0 [facility] Comment on above: Performed By: #### C K, PT, PTT, BNP, BMP, CBC, HS TROP #### [address] Creatinine [Mass/Vol] 1.34 mg/dL High 0.60-1.20 [facility] Comment on above: Performed By: #### C K, PT, PTT, BNP, BMP, CBC, HS TROP #### [address] Creatinine Clr Calc Pharmacy 34.92 Normal [facility] Comment on above: Performed By: #### C K, PT, PTT, BNP, BMP, CBC, HS TROP #### [address] GFR/1.73 sq M.predicted MDRD (S/P/Bld) [Vol rate/Area] 39.836 mL/min/{1.73_m2} Normal [facility] Comment on above: Performed By: #### C K, PT, PTT, BNP, BMP, CBC, HS TROP #### [facility] [address] [place] [address] [place] Glucose [Mass/Vol] 162 mg/dL High 70-100 [facility] Comment on above: Result Comment: [facility] Glucose Reference Range is dependent on time and content of last meal. Glucose of more than 200 mg/dL in a nonstressed, ambulatory subject supports the diagnosis of Diabetes Mellitus. ADA recommended reference range Performed By: #### C K, PT, PTT, BNP, BMP, CBC, HS TROP #### [facility] [address] Potassium [Moles/Vol] 4.3 mmol/L Normal 3.5-5.1 [facility] Comment on above: Performed By: #### C K, PT, PTT, BNP, BMP, CBC, HS TROP #### [facility] [address] Sodium [Moles/Vol] 140 mmol/L Normal 136-145 [facility] Comment on above: Performed By: #### C K, PT, PTT, BNP, BMP, CBC, HS TROP #### [facility] [address] Urea nitrogen [Mass/Vol] 38 mg/dL High 7-25 [facility] Comment on above: Performed By: #### C K, PT, PTT, BNP, BMP, CBC, HS TROP #### [address] chest w [facility] 12-27-2023 CT chest w [facility] [place] [address] [place] [address] CT Scan Report Signed Patient: Kay Ly MR#: [id number] : 1940 Acct:[id number] Age/Sex: 83 / F ADM Date: 12/26/23 Loc: Room: [address] [place] [address] Type: ADM IN Attending Dr: Roland Garcia DO Copies to: DO Roland Baca DO Ordering Provider: Wilberto Cifuentes DO Date of Service: 12/27/23 CT/CT [...] pneumonia cannot be excluded. Impression dictated by: Keyshawn Gill Jr., DJulietaOJulieta12/27/2023 12:50 PM Dictation Location: [place] [address] Transcribed By: [facility] 12/27/23 1250 Dictated By: Keyshawn Gill Jr, DO 12/27/23 1248 Signed By: 12/27/23 1250 Normal [facility] Complete Blood Count Auto Di ffon 12-27-2023 Basophils (Bld) [#/Vol] 0.0 10*3/uL Normal 0.0-0.2 [facility] Comment on above: Result Comment: PERF ORMED BY: [place] [address] PATHOLOGIST [employer] INSULATOR ARELY ROSSI M.D. Performed By: #### A DDONUAPLUS #### [address] Basophils/100 WBC (Bld) 0.2 % Normal . [facility] Comment on above: Performed By: #### A DDONUAPLUS #### [address] Eosinophils (Bld) [#/Vol] 0.0 10*3/uL Normal 0.0-0.45 [facility] Comment on above: Performed By: #### A DDONUAPLUS #### [address] Eosinophils/100 WBC (Bld) 0.2 % Normal . [facility] Comment on above: Performed By: #### A DDONUAPLUS #### [address] Erythrocyte distribution width (RBC) [Ratio] 18.0 % High 11.9-15.3 [facility] Comment on above: Performed By: #### A DDONUAPLUS #### [address] Hematocrit (Bld) [Volume fraction] 33.8 % Low 34.0-46.4 [facility] Comment on above: Performed By: #### A DDONUAPLUS #### [address] Hemoglobin (Bld) [Mass/Vol] 10.8 g/dL Low 11.8-15.4 [facility] Comment on above: Performed By: #### A DDONUAPLUS #### [place] [address] [place] Lymphocytes (Bld) [#/Vol] 0.6 10*3/uL Low 1.00-4.8 [facility] Comment on above: Performed By: #### A DDONUAPLUS #### [place] [address] [place] Lymphocytes/100 WBC (Bld) 6.3 % Normal . [facility] Comment on above: Performed By: #### A DDONUAPLUS #### [address] MCH (RBC) [Entitic mass] 28.5 pg Normal 24.7-34.3 [facility] Comment on above: Performed By: #### A DDONUAPLUS #### [address] MCV (RBC) [Entitic vol] 89.0 fL Normal 80-100 [facility] Comment on above: Performed By: #### A DDONUAPLUS #### [address] Mean Corpuscular HGB Conc 32.1 g/dL Normal 32.0-35.0 [facility] Comment on above: Performed By: #### A DDONUAPLUS #### [address] Monocytes (Bld) [#/Vol] 0.6 10*3/uL Normal 0.0-0.8 [facility] Comment on above: Performed By: #### A DDONUAPLUS #### [address] Monocytes/100 WBC (Bld) 5.9 % Normal . [facility] Comment on above: Performed By: #### A DDONUAPLUS #### [address] Neutrophils (Bld) [#/Vol] 8.6 10*3/uL High 1.8-7.7 [facility] Comment on above: Performed By: #### A DDONUAPLUS #### [address] Neutrophils/100 WBC (Bld) 87.4 % Normal . [facility] Comment on above: Performed By: #### A DDONUAPLUS #### [address] NRBC% 0.1 /100{WBC} Normal 0-0.5 [facility] Comment on above: Performed By: #### A DDONUAPLUS #### [address] Platelet mean volume (Bld) [Entitic vol] 8.3 fL Normal 6.3-10.7 [facility] Comment on above: Performed By: #### A DDONUAPLUS #### [facility] [address] Platelets (Bld) [#/Vol] 142 10*3/uL Low 150-450 [facility] Comment on above: Performed By: #### A DDONUAPLUS #### [address] RBC (Bld) [#/Vol] 3.80 10*6/uL Normal 3.60-5.00 [facility] Comment on above: Performed By: #### A DDONUAPLUS #### [facility] [address] [place] [id number] [facility] WBC (Bld) [#/Vol] 9.8 10*3/uL Normal 3.8-11.6 [facility] Comment on above: Performed By: #### A DDONUAPLUS #### [address] Glucose Poct Glucometerson 0 12-27-2023 Glucose [Mass/Vol] 192 mg/dL Normal [facility] Comment on above: Result Comment: [place] Glucose Reference Range is dependent on time and content of last meal. Glucose of more than 200 mg/dL in a nonstressed, ambulatory subject supports the diagnosis of Diabetes Mellitus. PERFORMED BY: [place] [address] PATHOLOGIST [employer] INSULATOR ARELY ROSSI M.D. Performed By: #### A DDONUAPLUS #### [address] Glucose [Mass/Vol] 73 mg/dL Normal [facility] Comment on above: Result Comment: [facility] Glucose Reference Range is dependent on time and content of last meal. Glucose of more than 200 mg/dL in a nonstressed, ambulatory subject supports the diagnosis of Diabetes Mellitus. PERFORMED BY: [place] [address] PATHOLOGIST R[employer] INSULATOR ARELY ROSSI M.D. Performed By: #### G LULS #### Point of Care testing , Commemt1 Glu2: Cleaned Meter Normal [facility] Comment on above: Result Comment: PERF ORMED BY: [place] [address] PATHOLOGIST R[employer] INSULATOR ARELY ROSSI M.D. Performed By: #### G LULS #### Point of Care testing , Glucose [Mass/Vol] 233 mg/dL Normal [facility] Comment on above: Result Comment: [place] om Glucose Reference Range is dependent on time and content of last meal. Glucose of more than 200 mg/dL in a nonstressed, ambulatory subject supports the diagnosis of Diabetes Mellitus. Performed By: #### G LULS #### Point of Care testing , Commemt1 Glu2: Cleaned Meter Normal [facility] Comment on above: Result Comment: PERF ORMED BY: [place] [address] PATHOLOGIST [employer] INSULATOR ARELY ROSSI M.D. Performed By: #### G LULS #### Point of Care testing , Glucose [Mass/Vol] 210 mg/dL Normal [facility] Comment on above: Result Comment: [place] om Glucose Reference Range is dependent on time and content of last meal. Glucose of more than 200 mg/dL in a nonstressed, ambulatory subject supports the diagnosis of Diabetes Mellitus. Performed By: #### G LULS #### Point of Care testing , Commemt1 Glu2: Cleaned Meter Normal [facility] Comment on above: Result Comment: PERF ORMED BY: [place] [address] PATHOLOGIST [employer]OCK [employer] INSULATOR ARELY ROSSI M.D. Performed By: #### G LULS #### Point of Care testing , Glucose [Mass/Vol] 130 mg/dL Normal [facility] Comment on above: Result Comment: [place] om Glucose Reference Range is dependent on time and content of last meal. Glucose of more than 200 mg/dL in a nonstressed, ambulatory subject supports the diagnosis of Diabetes Mellitus. Performed By: #### G LULS #### Point of Care testing , Magnesiumon 12-27-2023 Magnesium [Mass/Vol] 1.9 mg/dL Normal 1.9-2.7 [facility] Comment on above: Result Comment: PERF ORMED BY: [place] [address] PATHOLOGIST [employer] INSULATOR ARELY ROSSI M.D. Performed By: #### C K, PT, PTT, BNP, BMP, CBC, HS TROP #### [address] Activated partial thrombopla stin time (aPTT) in platelet poor plasma by coagulation aOrdered By: Susanne Cannon on 12-26-2023 aPTT Coag (PPP) [Time] 32.1 s 25.1-36.5 [facility] Comment on above: A hematocrit value g reater than 55% may lead to inaccurate results in coagulation testing. Patients having hematocrit values >55% require a special collection tube for coagulation studies. Please contact the laboratory at [phone] for redraw instructions. Automated basophil %Ordered By: Susanne Cannon on 12-26-2023 Basophils/100 WBC (Bld) 0.6 % Normal . [facility] Comment on above: Performed By: #### C K, PT, PTT, BNP, BMP, CBC, HS TROP #### [address] Automated basophil countOrde red By: Susanne Cannon on 12-26-2023 Basophils (Bld) [#/Vol] 0.0 10*3/uL Normal 0.0-0.2 [facility] Comment on above: Result Comment: PERF ORMED BY: [place] [address] PATHOLOGIST [employer] INSULATOR ARELY ROSSI M.D. Performed By: #### C K, PT, PTT, BNP, BMP, CBC, HS TROP #### [address] Automated blood monocyte cou ntOrdered By: Susanne Cannon on 12-26-2023 Monocytes (Bld) [#/Vol] 0.3 10*3/uL Normal 0.0-0.8 [facility] Comment on above: Performed By: #### C K, PT, PTT, BNP, BMP, CBC, HS TROP #### [address] Automated eosinophil %Ordere d By: Susanne Cannon on 12-26-2023 Eosinophils/100 WBC (Bld) 1.4 % Normal . [facility] Comment on above: Performed By: #### C K, PT, PTT, BNP, BMP, CBC, HS TROP #### [address] Automated eosinophil countOr dered By: Susanne Cannon on 12-26-2023 Eosinophils (Bld) [#/Vol] 0.1 10*3/uL Normal 0.0-0.45 [facility] Comment on above: Performed By: #### C K, PT, PTT, BNP, BMP, CBC, HS TROP #### [address] Automated monocyte %Ordered By: Susanne Cannon on 12-26-2023 Monocytes/100 WBC (Bld) 3.2 % Normal . [facility] Comment on above: Performed By: #### C K, PT, PTT, BNP, BMP, CBC, HS TROP #### [address] Automated neutrophil %Ordere d By: Susanne Cannon on 12-26-2023 Neutrophils/100 WBC (Bld) 87.2 % Normal . [facility] Comment on above: Performed By: #### C K, PT, PTT, BNP, BMP, CBC, HS TROP #### [address] BNP ser/plasOrdered By: Jose Cannon on 12-26-2023 Natriuretic peptide B (Bld) [Mass/Vol] 210.0 pg/mL High 5-100 [facility] Comment on above: Result Comment: PERF ORMED BY: [place] [address] PATHOLOGIST [employer] INSULATOR ARELY ROSSI M.D. Performed By: #### C K, PT, PTT, BNP, BMP, CBC, HS TROP #### [facility] [address] [place] [address] Bacteria [Presence] in Urine by AutomatedOrdered By: Susanne Cannon on 12-26-2023 Bacteria Auto Ql (U) None seen [HPF] None Seen [facility] Basic Metabolic Panelon 11-27 Creatinine Clr Calc Pharmacy 38.03 Normal [facility] Comment on above: Result Comment: PERF ORMED BY: [place] [address] PATHOLOGIST [employer] INSULATOR ARELY ROSSI M.D. Performed By: #### C K, PT, PTT, BNP, BMP, CBC, HS TROP #### [address] GFR/1.73 sq M.predicted MDRD (S/P/Bld) [Vol rate/Area] 43.721 mL/min/{1.73_m2} Normal [facility] Comment on above: Performed By: #### C K, PT, PTT, BNP, BMP, CBC, HS TROP #### [address] Bilirubin Test strip Ql (U)O rdered By: Susanne Cannon on 12-26-2023 Bilirubin Ql (U) Negative Negative [facility] COVID CepheidOrdered By: Lisa Cannon on 12-26-2023 SARS-CoV-2 (COVID-19) Ab IA Ql Negative Negative [facility] Comment on above: This is a duplicate Cepheid Xpert Xpress CoV-2/Flu/RSV Plus RNA by RT-PCR result to be used for statistical tracking purpose only. SARS-CoV-2 (COVID-19) RNA YUMIKO+probe Ql (Unsp spec) [facility] COVID-19 / Flu A/B / RSV PCR on 12-26-2023 SARS-CoV-2 (COVID-19) RNA YUMIKO+probe Ql (Unsp spec) COVID-19 Cepheid Result Negative for SARS-CoV-2 RNA by RT-PCR Flu A Cepheid Result Negative for Flu A RNA by RT-PCR Flu B Cepheid Result Negative for Flu B RNA by RT-PCR RSV Cepheid Result Negative for RSV RNA by RT-PCR COVID19 Blank Space ------ Reference: Negative COVID19 Blank Space ------ Cepheid Disclaimer The Cepheid Xpert Xpress CoV-2/Flu/RSV [...] or Cepheid Disclaimer revoked sooner. PERFORMED BY: [facility] [place] [address] PATHOLOGIST [employer] INSULATOR ARELY ROSSI M.D. Normal [facility] Comment on above: Performed By: #### G LUEMETERIO #### Point of Care testing , Calcium [Mass/volume] in Ser um or PlasmaOrdered By: Susanne Cannon on 12-26-2023 Calcium [Mass/Vol] 9.7 mg/dL Normal 8.6-10.[address] [facility] Comment on above: Performed By: #### C K, PT, PTT, BNP, BMP, CBC, HS TROP #### [address] Carbon dioxide, total [Moles /volume] in Serum or PlasmaOrdered By: Susanne Cannon on 12-26-2023 CO2 [Moles/Vol] 38.3 mmol/L High 21.0-31.0 [facility] Comment on above: Performed By: #### C K, PT, PTT, BNP, BMP, CBC, HS TROP #### [address] Cepheid COVID PCR Negativeon 12-26-2023 SARS-CoV-2 (COVID-19) RNA YUMIKO+probe Ql (Unsp spec) Negative Normal Negative [facility] Comment on above: Result Comment: This is a duplicate Cepheid Xpert Xpress CoV-2/Flu/RSV Plus RNA by RT-PCR result to be used for statistical tracking purpose only. PERFORMED BY: [place] [address] PATHOLOGIST [employer] INSULATOR ARELY ROSSI M.D. Performed By: #### G LULS #### Point of Care testing , Chloride [Moles/volume] in S zoran or PlasmaOrdered By: Susanne Cannon on 12-26-2023 Chloride [Moles/Vol] 100 mmol/L Normal 98-107 [facility] Comment on above: Performed By: #### C K, PT, PTT, BNP, BMP, CBC, HS TROP #### [address] Color of Urine by AutoOrdere d By: Susanne Cannon on 12-26-2023 Color (U) Light-yellow Normal Yellow [facility] Comment on above: Order Comment: Name Collection Type:: Voided Performed By: #### A DDONUAPLUS #### [address] Complete Blood Count Auto Di ffon 12-26-2023 Mean Corpuscular HGB Conc 31.9 g/dL Low 32.0-35.0 [facility] Comment on above: Performed By: #### C K, PT, PTT, BNP, BMP, CBC, HS TROP #### [place] [address] [place] Monocytes/100 WBC (Bld) 17.57 % Normal 0.00-20.00 [facility] Comment on above: Performed By: #### C K, PT, PTT, BNP, BMP, CBC, HS TROP #### [address] NRBC% 0.0 /100{WBC} Normal 0-0.5 [facility] Comment on above: Performed By: #### C K, PT, PTT, BNP, BMP, CBC, HS TROP #### [address] Creatine kinase [Enzymatic a ctivity/volume] in Serum or PlasmaOrdered By: Susanne Cannon on 12-26-2023 CK [Catalytic activity/Vol] 84 U/L Normal 30-223 [facility] Comment on above: Performed By: #### C K, PT, PTT, BNP, BMP, CBC, HS TROP #### [address] Creatinine [Mass/volume] in Serum or PlasmaOrdered By: Susanne Cannon on 12-26-2023 Creatinine [Mass/Vol] 1.24 mg/dL High 0.60-1.20 [facility] Comment on above: Performed By: #### C K, PT, PTT, BNP, BMP, CBC, HS TROP #### [place] [address] [place] Dipstick and Microscopicon 0 12-26-2023 Bacteria,Urine None Seen Normal None Seen [facility] Comment on above: Order Comment: Name Collection Type:: Voided Performed By: #### A DDONUAPLUS #### [place] [address] [place] Bilirubin,Urine Negative Normal Negative [facility] Comment on above: Order Comment: Name Collection Type:: Voided Performed By: #### A DDONUAPLUS #### [address] Glucose Ql (U) Normal Normal Normal [facility] Comment on above: Order Comment: Name Collection Type:: Voided Performed By: #### A DDONUAPLUS #### [place] [address] [place] Hyaline Casts,Urine None Normal 0-8 [facility] Comment on above: Order Comment: Name Collection Type:: Voided Performed By: #### A DDONUAPLUS #### [place] [address] [place] Mucus,Urine Rare Normal [facility] Comment on above: Order Comment: Name Collection Type:: Voided Result Comment: PERF ORMED BY: [place] [address] PATHOLOGIST [employer] INSULATOR ARELY ROSSI M.D. Performed By: #### A DDONUAPLUS #### [place] [address] [place] Nitrite,Urine Negative Normal Negative [facility] Comment on above: Order Comment: Name Collection Type:: Voided Performed By: #### A DDONUAPLUS #### [place] [address] [place] Occult Blood,Urine Negative Normal Negative [facility] Comment on above: Order Comment: Name Collection Type:: Voided Result Comment: PERF ORMED BY: [place] [address] PATHOLOGIST [employer] INSULATOR ARELY ROSSI M.D. Performed By: #### A DDONUAPLUS #### [place] [address] [place] Protein,Urine Negative Normal Negative [facility] Comment on above: Order Comment: Name Collection Type:: Voided Performed By: #### A DDONUAPLUS #### [address] RBC,Urine 1-2 Normal 0-4 [facility] Comment on above: Order Comment: Name Collection Type:: Voided Performed By: #### A DDONUAPLUS #### [address] Specificy [place],Urine 1.009 Normal 1.001-1.03 0 [facility] Comment on above: Order Comment: Name Collection Type:: Voided Performed By: #### A DDONUAPLUS #### [address] Squamous Epithelial Cell,Urine 1-2 Normal 0-2 [facility] Comment on above: Order Comment: Name Collection Type:: Voided Performed By: #### A DDONUAPLUS #### [address] Urobilinogen,Urine Normal Normal Normal [facility] Comment on above: Order Comment: Name Collection Type:: Voided Performed By: #### A DDONUAPLUS #### [place] [address] [place] WBC,Urine 3-4 Normal 0-4 [facility] Comment on above: Order Comment: Name Collection Type:: Voided Performed By: #### A DDONUAPLUS #### [address] ECG 12 lead ECGon 12-26-2023 ECG 12 lead ECG [facility] [place] [address] [place] [address] Electrocardiograph Report Signed Patient: Kay Ly MR#: [id number] : 1940 Acct:[id number] Age/Sex: 83 / F ADM Date: 12/26/23 Loc: ER Room: Type: [facility] ER Attending Dr: Ordering Provider: Susanne [...] By Susanne Cannon DO 1050 Normal [facility] E[facility] echo transthoracicon [facility] echo transthoracic [facility] [place] [address] [place] [address] Echocardiogram Signed Patient: Kay Ly MR#: [id number] : 1940 Acct:[id number] Age/Sex: 83 / F ADM Date: 12/26/23 Loc: Room: [address] [place] [address] Type: ADM IN Attending Dr: Roland Garcia DO Ordering Provider: Wilberto Cifuentes DO Date of Service: 12/26/23 [facility] echo transthoracic: Shortness of Breath/Dyspnea Copies to: Yumiko Ocampo MD, FACC Wilberto Cifuentes DO Height: 62 in Weight: 207 [...] 12/26/23 1525 Signed By: Yumiko Ocampo MD, [facility] 12/27/23 1621 Normal [facility] Epithelial cells.squamous [# /area] in Urine sediment by Automated countOrdered By: Susanne Cannon on 12-26-2023 Epithelial cells.squamous Auto (Urine sed) [#/Area] 1-2 [HPF] 0-2 [facility] Erythrocyte distribution wid th [Ratio] by Automated countOrdered By: Susanne Cannon on 12-26-2023 Erythrocyte distribution width (RBC) [Ratio] 18.7 % High 11.9-15.3 [facility] Comment on above: Performed By: #### C K, PT, PTT, BNP, BMP, CBC, HS TROP #### [facility] [address] [place] [address] [place] Erythrocytes [#/area] in Uri ne sediment by Automated countOrdered By: Susanne Cannon on 12-26-2023 RBC Auto (Urine sed) [#/Area] 1-2 [HPF] 0-4 [facility] Erythrocytes [#/volume] in B lood by Automated countOrdered By: Susanne Cannon on 12-26-2023 RBC (Bld) [#/Vol] 4.10 10*6/uL Normal 3.60-5.00 [facility] Comment on above: Performed By: #### C K, PT, PTT, BNP, BMP, CBC, HS TROP #### [facility] [address] [place] [address] [place] Glucose Poct Glucometerson 0 12-26-2023 Glucose [Mass/Vol] 398 mg/dL Normal [facility] Comment on above: Result Comment: [place] Glucose Reference Range is dependent on time and content of last meal. Glucose of more than 200 mg/dL in a nonstressed, ambulatory subject supports the diagnosis of Diabetes Mellitus. PERFORMED BY: [place] [address] PATHOLOGIST [employer] INSULATOR ARELY ROSSI M.D. Performed By: #### G MAHAD #### Point of Care testing , Glucose [Mass/volume] in Ser um or PlasmaOrdered By: Susanne Cannon on 12-26-2023 Glucose [Mass/Vol] 91 mg/dL Normal 70-[address] [facility] Comment on above: ADA recommended refe rence rangeRandom Glucose Reference Range is dependent on time and content of last meal. Glucose of more than 200 mg/dL in a nonstressed, ambulatory subject supports the diagnosis of Diabetes Mellitus. Result Comment: [place] om Glucose Reference Range is dependent on time and content of last meal. Glucose of more than 200 mg/dL in a nonstressed, ambulatory subject supports the diagnosis of Diabetes Mellitus. ADA recommended reference range Performed By: #### C K, PT, PTT, BNP, BMP, CBC, HS TROP #### [facility] [address] [place] [address] Glucose [Mass/volume] in Uri ne by Test stripOrdered By: Susanne Cannon on 12-26-2023 Glucose Test strip (U) [Mass/Vol] Normal mg/dL Normal [facility] Hematocrit [Volume Fraction] of Blood by Automated countOrdered By: Susanne Cannon on 12-26-2023 Hematocrit (Bld) [Volume fraction] 36.4 % Normal 34.0-46.4 [facility] Comment on above: Performed By: #### C K, PT, PTT, BNP, BMP, CBC, HS TROP #### [facility] [address] [place] [address] Hemoglobin Test strip Ql (U) Ordered By: Susanne Cannon on 12-26-2023 Hemoglobin Ql (U) Negative Negative [facility] Hemoglobin [Mass/volume] in BloodOrdered By: Susanne Cannon on 12-26-2023 Hemoglobin (Bld) [Mass/Vol] 11.6 g/dL Low 11.8-15.4 [facility] Comment on above: Performed By: #### C K, PT, PTT, BNP, BMP, CBC, HS TROP #### [facility] [address] Hyaline casts [#/area] in Ur ine sediment by Automated countOrdered By: Susanne Cannon on 12-26-2023 Hyaline casts Auto (Urine sed) [#/Area] None [LPF] 0-8 [facility] INR in Platelet poor plasma by Coagulation assayOrdered By: Susanne Cannon on 12-26-2023 INR Coag (PPP) [Relative time] 1.0 {INR} Normal [facility] Comment on above: INR Therapeutic Rang [...] Performed By: #### C K, PT, PTT, BNP, BMP, CBC, HS TROP #### [address] Ketones [Presence] in Urine by Test stripOrdered By: Susanne Cannon on 12-26-2023 Ketones Ql (U) Negative Normal Negative [facility] Comment on above: Order Comment: Name Collection Type:: Voided Performed By: #### A DDONUAPLUS #### [place] [address] [place] Rigoberto 12-26-2023 L Specimen: [id number] Received: 01/01/24 Status: SOUT Req Num: [id number] Spec Type: Cytology Subm Dr: Eben Selby MD Tissues: A PLEURAL FLUID (R) Procedures: HE/2, Gross/Micro L4, WEST, AE1-AE3, CALRETININ, CD68, CK5 6, CK20, CK 7, ER, D2-40, Cyto Prepstain, MOC31, PAX-8, GATA3, PAPSTN Age/ Patient Sex Location Account Attending Physician AliyahKay Milligan 83/F 3T [id number] Trent L JennisandraDO SPEC NUM: [id number] RECD: 01/01/24 STATUS: LAUREN [place] NUM: [id number] AIDEN: 12/26/[address] [facility] [address]: Eben Selby MD ENTERED: 01/01/24 [facility] DR: NI TYPE: Cytology DEPT: CNG ENTERED BY: [id number] RECV BY: [id number] ORDERED: HE/2, Gross/Micro L4, WEST, AE1-AE3, CALRETININ, [...] block preparations are prepared for microscopic examination. (CC/ok) CPT Codes 56226 Specimen: [id number] Received: 01/01/24 Status: LAUREN [place] Num: [id number] Spec Type: Cytology Subm Dr: Eben Selby MD Tissues: A PLEURAL FLUID (R) Procedures: HE/2, Gross/Micro L4, WEST, AE1-AE3, CALRETININ, CD68, CK5 6, CK20, CK 7, ER, D2-40, Cyto Prepstain, MOC31, PAX-8, GATA3, PAPSTN Patient: Kay Ly [id number] (Continued) Signed (signature on file) Mega Nolasco MD 01/08/241637 Normal [facility] Leukocyte esterase [Presence ] in Urine by Test stripOrdered By: Susanne Cannon on 12-26-2023 Leukocyte esterase Test strip Ql (U) 2+ High Negative [facility] Comment on above: Order Comment: Name Collection Type:: Voided Performed By: #### A DDONUAPLUS #### [facility] [address] [place] [address] [place] Leukocytes [#/area] in Urine sediment by Automated countOrdered By: Susanne Cannon on 12-26-2023 WBC Auto (Urine sed) [#/Area] 3-4 [HPF] 0-4 [facility] Leukocytes [#/volume] correc nancy for nucleated erythrocytes in Blood by Automated counOrdered By: Susanne Cannon on 12-26-2023 WBC corrected for nucl RBC Auto (Bld) [#/Vol] 8.0 10*3/uL 3.8-11.6 [facility] Leukocytes [#/volume] in Blo od by Automated countOrdered By: Susanne Cannon on 12-26-2023 WBC (Bld) [#/Vol] 8.0 10*3/uL Normal 3.8-11.[address] [facility] Comment on above: Performed By: #### C K, PT, PTT, BNP, BMP, CBC, HS TROP #### [facility] [address] [place] [address] [place] Lymphocytes [#/volume] in Bl ood by Automated countOrdered By: Susanne Cannon on 12-26-2023 Lymphocytes (Bld) [#/Vol] 0.6 10*3/uL Low 1.00-4.8 [facility] Comment on above: Performed By: #### C K, PT, PTT, BNP, BMP, CBC, HS TROP #### [facility] [address] [place] [address] [place] Lymphocytes/100 leukocytes i n Blood by Automated countOrdered By: Susanne Cannon on 12-26-2023 Lymphocytes/100 WBC (Bld) 7.6 % Normal . [facility] Comment on above: Performed By: #### C K, PT, PTT, BNP, BMP, CBC, HS TROP #### [place] [address] [place] MCH [Entitic mass] by Automa nancy countOrdered By: Susanne Cannon on 12-26-2023 MCH (RBC) [Entitic mass] 28.4 pg Normal 24.7-34.3 [facility] Comment on above: Performed By: #### C K, PT, PTT, BNP, BMP, CBC, HS TROP #### [facility] [address] MCHC Auto (RBC) [Mass/Vol]Or dered By: Susanne Cannon on 12-26-2023 MCHC (RBC) [Mass/Vol] 31.9 g/dL Low 32.0-35.0 [facility] MCV [Entitic volume] by Auto mated countOrdered By: Susanne Cannon on 12-26-2023 MCV (RBC) [Entitic vol] 88.9 fL Normal 80-100 [facility] Comment on above: Performed By: #### C K, PT, PTT, BNP, BMP, CBC, HS TROP #### [facility] [address] Monocyte distribution width [Entitic volume] in Blood by AutomatedOrdered By: Susanne Cannon on 12-26-2023 Monocyte distribution width Auto (Bld) [Entitic vol] 17.57 % 0.00-20.00 [facility] Mucus [Presence] in Urine by AutomatedOrdered By: Susanne Cannon on 12-26-2023 Mucus Auto Ql (U) Rare [LPF] [facility] Neutrophils [#/volume] in Bl ood by Automated countOrdered By: Susanne Cannon on 12-26-2023 Neutrophils (Bld) [#/Vol] 7.0 10*3/uL Normal 1.8-7.7 [facility] Comment on above: Performed By: #### C K, PT, PTT, BNP, BMP, CBC, HS TROP #### [facility] [address] Nitrite Test strip Ql (U)Ord ered By: Susanne Cannon on 12-26-2023 Nitrite Ql (U) Negative Negative [facility] No Panel InformationOrdered By: Susanne Cannon on 12-26-2023 Estimated GFR (CKD-EPI) 43.721 mL/Min [facility] Creatinine Clearance (Chem 38.03 [facility] Nucleated erythrocytes [Pres ence] in Blood by Automated countOrdered By: Susanne Cannon on 12-26-2023 Nucleated RBC Auto Ql (Bld) 0.0 /100{WBC} 0-0.5 [facility] Partial Thromboplastin Timeo n 12-26-2023 aPTT Coag (Bld) [Time] 32.1 s Normal 25.1-36.5 [facility] Comment on above: Result Comment: A he matocrit value greater than 55% may lead to inaccurate results in coagulation testing. Patients having hematocrit values >55% require a special collection tube for coagulation studies. Please contact the laboratory at [phone] for redraw instructions. PERFORMED BY: [place] [address] PATHOLOGIST [employer] INSULATOR ARELY ROSSI M.D. Performed By: #### M G, BMP #### [facility] [address] [place] [address] Platelet mean volume [Entiti c volume] in Blood by Automated countOrdered By: Susanne Cannon on 12-26-2023 Platelet mean volume (Bld) [Entitic vol] 8.5 fL Normal 6.3-10.7 [facility] Comment on above: Performed By: #### C K, PT, PTT, BNP, BMP, CBC, HS TROP #### [facility] [address] [place] [address] [place] Platelets [#/volume] in Bloo d by Automated countOrdered By: Susanne Cannon on 12-26-2023 Platelets (Bld) [#/Vol] 130 10*3/uL Low 150-450 [facility] Comment on above: Performed By: #### C K, PT, PTT, BNP, BMP, CBC, HS TROP #### [facility] [address] [place] [address] [place] Potassium [Moles/volume] in Serum or PlasmaOrdered By: Susanne Cannon on 12-26-2023 Potassium [Moles/Vol] 4.5 mmol/L Normal 3.5-5.1 [facility] Comment on above: Performed By: #### C K, PT, PTT, BNP, BMP, CBC, HS TROP #### [facility] [address] Protein Test strip (U) [Mass /Vol]Ordered By: Susanne Cannon on 12-26-2023 Protein (U) [Mass/Vol] Negative Negative [facility] Prothrombin time (PT)Ordered By: Susanne Cannon on 12-26-2023 PT Coag (PPP) [Time] 11.3 s Normal 9.0-12.9 [facility] Comment on above: A hematocrit value g reater than 55% may lead to inaccurate results in coagulation testing. Patients having hematocrit values >55% require a special collection tube for coagulation studies. Please contact the laboratory at [phone] for redraw instructions. Result Comment: A he matocrit value greater than 55% may lead to inaccurate results in coagulation testing. Patients having hematocrit values >55% require a special collection tube for coagulation studies. Please contact the laboratory at [phone] for redraw instructions. Performed By: #### C K, PT, PTT, BNP, BMP, CBC, HS TROP #### [address] Serum or plasma anion gap de terminationOrdered By: Susanne Cannon on 12-26-2023 Anion gap [Moles/Vol] 11.2 mmol/L Normal 6.0-15.0 [facility] Comment on above: Performed By: #### C K, PT, PTT, BNP, BMP, CBC, HS TROP #### [address] Sodium [Moles/volume] in Ser um or PlasmaOrdered By: Susanne Cannon on 12-26-2023 Sodium [Moles/Vol] 145 mmol/L Normal 136-[address] [facility] Comment on above: Performed By: #### C K, PT, PTT, BNP, BMP, CBC, HS TROP #### [address] Specific gravity Test strip (U) [Rel density]Ordered By: Susanne Cannon on 12-26-2023 Specific gravity (U) [Rel density] 1.009 1.001-1.03 0 [facility] Troponin I High Sensitivityo n 12-26-2023 Troponin I High Sensitivity 8.3 pg/mL Normal 0.0-15.0 [facility] Comment on above: Result Comment: PERF ORMED BY: [place] [address] PATHOLOGIST [employer]ULATOR ARELY ROSSI M.D. Performed By: #### C K, PT, PTT, BNP, BMP, CBC, HS TROP #### [facility] [address] [place] [address] Troponin I.cardiac [Mass/vol ume] in Serum or Plasma by Detection limit <= 0.01 ng/Ordered By: Susanne Cannon on 12-26-2023 Troponin I.cardiac DL <= 0.01 ng/mL [Mass/Vol] 8.3 pg/mL 0.0-15.0 [facility] Urea nitrogen [Mass/volume] in Serum or PlasmaOrdered By: Susanne Cannon on 12-26-2023 Urea nitrogen [Mass/Vol] 26 mg/dL High 7- [facility] Comment on above: Performed By: #### C K, PT, PTT, BNP, BMP, CBC, HS TROP #### [facility] [address] [place] [address] Urine appearanceOrdered By: Susanne Cannon on 12-26-2023 Appearance (U) Clear Normal Clear [facility] Comment on above: Order Comment: Name Collection Type:: Voided Performed By: #### A DDONUAPLUS #### [facility] [address] [place] [address] Urobilinogen Test strip (U) [Mass/Vol]Ordered By: Susanne Cannon on 12-26-2023 Urobilinogen (U) [Mass/Vol] Normal mg/dL Normal [facility] XR chest 1V portableon 12-25 XR chest 1V portable [facility] [place] [address] [place] [address] XRay Report Signed Patient: Kay Ly MR#: [id number] : 1940 Acct:[id number] Age/Sex: 83 / F ADM Date: 12/26/23 [...] Antoine Craig M.D.12/26/2023 10:00 AM Dictation Location: [place] [address] Transcribed By: [facility] 12/26/23 1000 Dictated By: Antoine Craig II, MD 12/26/23 0959 Signed By: 12/26/23 1000 Normal [facility] pH of Urine by Test stripOrd ered By: Susanne Cannon on 12-26-2023 pH (U) 6.0 [pH] Normal 5.0-9.0 [facility] Comment on above: Order Comment: Name Collection Type:: Voided Performed By: #### A DDONUAPLUS #### [address] CBC auto differentialon 08-27 Basophils (Bld) [#/Vol] 0.1 10*3/uL [facility] Basophils/100 WBC (Bld) 0.9 % [facility] Eosinophils (Bld) [#/Vol] 0.1 10*3/uL [facility] Eosinophils/100 WBC (Bld) 1.3 % [facility] Erythrocyte distribution width (RBC) [Ratio] 18.2 % High 11.5 - 15.0 % [facility] Hematocrit (Bld) [Volume fraction] 31.5 % Low 35 - 47 % [facility] Hemoglobin (Bld) [Mass/Vol] 10.6 g/dL Low 11.7 - 15.5 g/dL [facility] Interpretation and review of laboratory results Abnormal [facility] Lymphocytes (Bld) [#/Vol] 0.7 10*3/uL Low [facility] Lymphocytes/100 WBC (Bld) 9.1 % [facility] MCH (RBC) [Entitic mass] 29.4 pg 27 - 34 pg [facility] MCHC (RBC) [Mass/Vol] 33.6 g/dL 32 - 3 6 g/dL [facility] MCV (RBC) [Entitic vol] 87 fL 80 - 100 fL [facility] Monocytes (Bld) [#/Vol] 0.4 10*3/uL [facility] Monocytes/100 WBC (Bld) 5.4 % [facility] Neutrophils (Bld) [#/Vol] 6.1 10*3/uL [facility] Neutrophils/100 WBC (Bld) 83.3 % [facility] Platelet mean volume (Bld) [Entitic vol] 8.3 fL 7 - 12 fL [facility] Platelets (Bld) [#/Vol] 119 10*3/uL Low [facility] RBC (Bld) [#/Vol] 3.61 10*6/uL Low [facility] WBC corrected for nucl RBC Auto (Bld) [#/Vol] 7.[address] [facility] Comprehensive metabolic pane rigoberto 09-18-2023 Albumin [Mass/Vol] 3.5 g/dL 3.2 - 5.3 g/dL [facility] ALP [Catalytic activity/Vol] 89 U/L 39 - 130 U/L [facility] ALT No additional P-5'-P [Catalytic activity/Vol] 17 U/L 0 - 31 U/L [facility] Anion gap [Moles/Vol] 11 mmol/L 5 - 15 mmol/L [facility] AST [Catalytic activity/Vol] 19 U/L 0 - 41 U/L [facility] Bilirubin [Mass/Vol] 0.7 mg/dL 0.3 - 1 .2 mg/dL [facility] Calcium [Mass/Vol] 8.7 mg/dL 8.5 - 10. 5 mg/dL [facility] Chloride [Moles/Vol] 101 mmol/L 98 - 10 9 mmol/L [facility] CO2 [Moles/Vol] 27 mmol/L 22 - 32 mmol/L [facility] Creatinine [Mass/Vol] 1.15 mg/dL High 0.40 - 1.00 mg/dL [facility] Comment on above: METHOD [facility] STAND[facility] eGFR (CKD-EPI)non-race dependent 48 Low - PINF [facility] Comment on above: Reported eGFR is based on the CKD-EPI 2020 equation that does not use a race coefficient. Glucose [Mass/Vol] 175 mg/dL High 65 - 99 mg/dL [facility] Interpretation and review of laboratory results Abnormal [facility] Potassium [Moles/Vol] 3.4 mmol/L Low 3.5 - 5.0 mmol/L [facility] Protein [Mass/Vol] 6.7 g/dL 6.0 - 8.0 g/dL [facility] Sodium [Moles/Vol] 139 mmol/L 134 - 146 mmol/L [facility] Urea nitrogen [Mass/Vol] 22 mg/dL 5 - 27 mg/dL [facility] Glucose Glucometer (BldC) [M ass/Vol]on 06-25-2023 Glucose [Mass/Vol] 233 mg/dL High 65 - 99 mg/dL [facility] Interpretation and review of laboratory results Abnormal [facility] Basic Metabolic Panelon 05-29 Anion gap [Moles/Vol] 9 mmol/L 5 - 15 mmol/L [facility] Calcium [Mass/Vol] 8.2 mg/dL Low 8.5 - 10. 5 mg/dL [facility] Chloride [Moles/Vol] 92 mmol/L Low 98 - 10 9 mmol/L [facility] CO2 [Moles/Vol] 31 mmol/L 22 - 32 mmol/L [facility] Creatinine [Mass/Vol] 2.07 mg/dL High 0.40 - 1.00 mg/dL [facility] Comment on above: METHOD [facility] eGFR (CKD-EPI)non-race dependent 24 Low - PINF [facility] Comment on above: Reported eGFR is based on the CKD-EPI 2021 equation that does not use a race coefficient. Glucose [Mass/Vol] 154 mg/dL High 65 - 99 mg/dL [facility] Interpretation and review of laboratory results Abnormal [facility] Potassium [Moles/Vol] 3.7 mmol/L 3.5 - 5.0 mmol/L [facility] Sodium [Moles/Vol] 132 mmol/L Low 134 - 146 mmol/L [facility] Urea nitrogen [Mass/Vol] 37 mg/dL High 5 - 27 mg/dL [facility] Anion gap [Moles/Vol] 11 mmol/L 5 - 15 mmol/L [facility] Calcium [Mass/Vol] 8.5 mg/dL 8.5 - 10. 5 mg/dL [facility] Chloride [Moles/Vol] 92 mmol/L Low 98 - 10 9 mmol/L [facility] CO2 [Moles/Vol] 33 mmol/L High 22 - 32 mmol/L [facility] Creatinine [Mass/Vol] 1.97 mg/dL High 0.40 - 1.00 mg/dL [facility] Comment on above: METHOD [facility] eGFR (CKD-EPI)non-race dependent 25 Low - PINF [facility] Comment on above: Reported eGFR is based on the CKD-EPI 2021 equation that does not use a race coefficient. Glucose [Mass/Vol] 245 mg/dL High 65 - 99 mg/dL [facility] Interpretation and review of laboratory results Abnormal [facility] Potassium [Moles/Vol] 3.6 mmol/L 3.5 - 5.0 mmol/L [facility] Sodium [Moles/Vol] 136 mmol/L 134 - 146 mmol/L [facility] Urea nitrogen [Mass/Vol] 35 mg/dL High 5 - 27 mg/dL [facility] CBC auto differentialon 05-29 Basophils (Bld) [#/Vol] 0.0 10*3/uL [facility] Basophils/100 WBC (Bld) 0.6 % [facility] Eosinophils (Bld) [#/Vol] 0.2 10*3/uL [facility] Eosinophils/100 WBC (Bld) 2.4 % [facility] Erythrocyte distribution width (RBC) [Ratio] 17.7 % High 11.5 - 15.0 % [facility] Hematocrit (Bld) [Volume fraction] 36.7 % 35 - 47 % [facility] Hemoglobin (Bld) [Mass/Vol] 12.1 g/dL 11.7 - 15.5 g/dL [facility] Interpretation and review of laboratory results Abnormal [facility] Lymphocytes (Bld) [#/Vol] 0.7 10*3/uL Low [facility] Lymphocytes/100 WBC (Bld) 11.0 % [facility] MCH (RBC) [Entitic mass] 29.2 pg 27 - 34 pg [facility] MCHC (RBC) [Mass/Vol] 32.9 g/dL 32 - 3 6 g/dL [facility] MCV (RBC) [Entitic vol] 89 fL 80 - 100 fL [facility] Monocytes (Bld) [#/Vol] 0.5 10*3/uL [facility] Monocytes/100 WBC (Bld) 7.3 % [facility] Neutrophils (Bld) [#/Vol] 5.2 10*3/uL [facility] Neutrophils/100 WBC (Bld) 78.7 % [facility] Platelet mean volume (Bld) [Entitic vol] 7.9 fL 7 - 12 fL [facility] Platelets (Bld) [#/Vol] 117 10*3/uL Low [facility] RBC (Bld) [#/Vol] 4.15 10*6/uL [facility] WBC corrected for nucl RBC Auto (Bld) [#/Vol] 6.6 [facility] Glucose Glucometer (BldC) [M ass/Vol]on 06-24-2023 Glucose [Mass/Vol] 229 mg/dL High 65 - 99 mg/dL [facility] Interpretation and review of laboratory results Abnormal [facility] Basic Metabolic Panelon 05-29 Anion gap [Moles/Vol] 10 mmol/L 5 - 15 mmol/L [facility] Calcium [Mass/Vol] 9.0 mg/dL 8.5 - 10. 5 mg/dL [facility] Chloride [Moles/Vol] 95 mmol/L Low 98 - 10 9 mmol/L [facility] CO2 [Moles/Vol] 33 mmol/L High 22 - 32 mmol/L [facility] Creatinine [Mass/Vol] 1.70 mg/dL High 0.40 - 1.00 mg/dL [facility] Comment on above: METHOD [facility] ST[facility] eGFR (CKD-EPI)non-race dependent 30 Low - PINF [facility] Comment on above: Reported eGFR is based on the CKD-EPI 2020 equation that does not use a race coefficient. Glucose [Mass/Vol] 188 mg/dL High 65 - 99 mg/dL [facility] Interpretation and review of laboratory results Abnormal [facility] Potassium [Moles/Vol] 3.3 mmol/L Low 3.5 - 5.0 mmol/L [facility] Sodium [Moles/Vol] 138 mmol/L 134 - 146 mmol/L [facility] Urea nitrogen [Mass/Vol] 30 mg/dL High 5 - 27 mg/dL [facility] CBC auto differentialon 05-29 Basophils (Bld) [#/Vol] 0.0 10*3/uL [facility] Basophils/100 WBC (Bld) 0.7 % [facility] Eosinophils (Bld) [#/Vol] 0.1 10*3/uL [facility] Eosinophils/100 WBC (Bld) 2.2 % [facility] Erythrocyte distribution width (RBC) [Ratio] 18.0 % High 11.5 - 15.0 % [facility] Hematocrit (Bld) [Volume fraction] 35.5 % 35 - 47 % [facility] Hemoglobin (Bld) [Mass/Vol] 11.8 g/dL 11.7 - 15.5 g/dL [facility] Interpretation and review of laboratory results Abnormal [facility] Lymphocytes (Bld) [#/Vol] 0.7 10*3/uL Low [facility] Lymphocytes/100 WBC (Bld) 10.8 % [facility] MCH (RBC) [Entitic mass] 29.2 pg 27 - 34 pg [facility] MCHC (RBC) [Mass/Vol] 33.3 g/dL 32 - 3 6 g/dL [facility] MCV (RBC) [Entitic vol] 88 fL 80 - 100 fL [facility] Monocytes (Bld) [#/Vol] 0.5 10*3/uL [facility] Monocytes/100 WBC (Bld) 7.0 % [facility] Neutrophils (Bld) [#/Vol] 5.3 10*3/uL [facility] Neutrophils/100 WBC (Bld) 79.3 % [facility] Platelet mean volume (Bld) [Entitic vol] 8.4 fL 7 - 12 fL [facility] Platelets (Bld) [#/Vol] 114 10*3/uL Low [facility] RBC (Bld) [#/Vol] 4.04 10*6/uL [facility] WBC corrected for nucl RBC Auto (Bld) [#/Vol] 6.[address] [facility] Cardiac echo study Procedure Ordered By: Khurram Yadav on 06-23-2023 Aortic root 3.40 cm [facility] Work Phone: AV mean gradient 5.00 mmHg [facility] Work Phone: AV peak gradient 7.73 mmHg [facility] Work Phone: AV peak jere 139.00 cm/s [facility] Work Phone: AV valve area 1.70 cm2 [facility] Work Phone: AV Velocity Ratio 0.67 [facility] Work Phone: AV VTI 36.40 cm [facility] Work Phone: E wave deceleration time 261.00 msec [facility] Work Phone: E/A ratio 1.08 [facility] Work Phone: E/E' ratio 15.20 [facility] Work Phone: Echo EF Estimated 65 % [facility] Work Phone: EF 65 % [facility] Work Phone: Energy loss index 1.11 [facility] Work Phone: Est. RA pressure 3 mmHg [facility] Work Phone: FS 33 % 28 - 44 % [facility] Work Phone: Inferior Vena Cava Diameter 1.40 cm [facility] Work Phone: Interventricular Septum Diastolic Thickness by 2D 10 cm [facility] Work Phone: IVC proximal 14 cm [facility] Work Phone: IVS 1.00 cm 0.6 - 1.1 cm [facility] Work Phone: LA size 4.70 cm [facility] Work Phone: LA volume 69.40 cm3 [facility] Work Phone: LA Volume Index 34.9 mL/m2 [facility] Work Phone: Left Ventricle Mass [id number] g [facility] Work Phone: LV Diastolic Volume 76.40 mL [facility] Work Phone: LV ESV A2C 64.60 mL [facility] Work Phone: LV ESV A4C 65.00 mL [facility] Work Phone: LV RWT 2D 38.46 [facility] Work Phone: LV Systolic Volume 26.90 mL [facility] [employer] Work Phone: LVIDd 5.20 cm 4.49 - 6.23 cm [facility] Work Phone: LVIDs 3.50 cm 2.65 - 4.01 cm [facility] Work Phone: LVOT diameter 1.80 cm [facility] Work Phone: LVOT peak jere 0.90 m/s [facility] Work Phone: LVOT peak VTI 24.30 cm [facility] Work Phone: LVOT stroke volume 61.84 ml [facility] Work Phone: MV Peak A Jere 70.30 cm/s [facility] Work Phone: MV Peak E Jere 76.20 cm/s [facility] Work Phone: MV pressure 1/2 time 76.00 ms [facility] Work Phone: MV TDI E' (medial) 5.00 cm/s [facility] Work Phone: MV valve area p 1/2 method 2.89 cm2 [facility] Work Phone: PW 1.00 cm 0.6 - 1.1 cm [facility] Work Phone: RA area 17.9 cm2 [facility] Work Phone: RV diastolic dimension (basal) 38.0 mm [facility] Work Phone: RV Peak Systolic Pressure 33 mmHg [facility] Work Phone: RVID d 3.8 cm [facility] Work Phone: TAPSE 1.94 cm [facility] Work Phone: TDI 6.64 cm/s [facility] Work Phone: TR peak gradient 30.00 mmHg [facility] Work Phone: TR Peak Jere 2.7 m/s [facility] Work Phone: Valve area - Index 0.9 [facility] Work Phone: ZLVIDD -0.17 [employer] Work Phone: ZLVIDS 0.56 [employer] Work Phone: [employer] Work Phone: Cardiac echo study Procedure on 06-23-2023 Left Ventricle: Syst olic function is normal with an ejection fraction of 55-60%. No obvious regional wall motion abnormalities. Left Ventricle Left ventricle appears normal in size. There is borderline increased wall thickness/hypertrophy. Systolic function is normal with an ejection fraction of 55-60%. No obvious regional wall motion abnormalities. Diastolic function assessment is indeterminate. Lateral E' is 6.64 cm/s. Medial E' is 5.00 cm/s. Right Ventricle Right ventricular size appears normal. The right ventricular basal diameter is 38.0 mm. Systolic function is normal. Normal tricuspid annular plane systolic excursion. Normal systolic excursion velocity by TDI (>9.5 cm/s). Left Atrium Left atrium volume index is upper limits normal. The left atrial volume index is 34.9 mL/m2. Right Atrium Right atrium is normal in size. The right atrial area is 17.9 cm2. IVC/SVC The right atrial pressure is estimated at 3 mmHg. IVC appears normal. Mitral Valve The leaflets are mildly thickened. There is mild regurgitation. There is no evidence of mitral valve stenosis. Tricuspid Valve The leaflets are mildly thickened. There is mild to moderate regurgitation. There is no evidence of tricuspid valve stenosis. The right ventricular systolic pressure normal. RVSP calculated at 33 mmHg. RVSP is based on RA pressure of 3 mmHg. Aortic Valve The aortic valve is trileaflet. There is mild sclerosis. There is trivial regurgitation. There is no evidence of aortic valve stenosis. Pulmonic Valve The pulmonic valve was not well visualized. There is trace regurgitation. There is no evidence of pulmonic valve stenosis. Ascending Aorta The aortic root is normal in size. Pericardium There is no pericardial effusion. The pericardium appears normal. Study Details A complete echo was performed using complete 2D, color flow Doppler and spectral Doppler. Overall the study quality was adequate. Wall Scoring Baseline Score Index: 1.00 The left ventricular wall motion is normal. [employer] Glucose Glucometer (BldC) [M ass/Vol]on 06-23-2023 Glucose [Mass/Vol] 114 mg/dL High 65 - 99 mg/dL [facility] Interpretation and review of laboratory results Abnormal [facility] Glucose [Mass/Vol] 201 mg/dL High 65 - 99 mg/dL [facility] Interpretation and review of laboratory results Abnormal [facility] Glucose [Mass/Vol] 188 mg/dL High 65 - 99 mg/dL [facility] Interpretation and review of laboratory results Abnormal [facility] Glucose [Mass/Vol] 176 mg/dL High 65 - 99 mg/dL [facility] Interpretation and review of laboratory results Abnormal [facility] Magnesiumon 06-23-2023 Magnesium [Mass/Vol] 2.3 mg/dL 1.8 - 2 .6 mg/dL [facility] Magnesium [Mass/Vol] 1.9 mg/dL 1.8 - 2 .6 mg/dL [facility] Magnesium [Mass/Vol]on 06-23 [facility] Potassiumon 06-23-2023 Potassium [Moles/Vol] 3.5 mmol/L 3.5 - 5.0 mmol/L [facility] Potassium [Moles/Vol]on 05-29 [facility] Auto Diff (add on use only)o n 06-22-2023 Basophils (Bld) [#/Vol] 0.1 10*3/uL [facility] Basophils/100 WBC (Bld) 1.3 % [facility] Eosinophils (Bld) [#/Vol] 0.1 10*3/uL [facility] Eosinophils/100 WBC (Bld) 1.7 % [facility] Lymphocytes (Bld) [#/Vol] 0.7 10*3/uL Low [facility] Lymphocytes/100 WBC (Bld) 9.8 % [facility] Monocytes (Bld) [#/Vol] 0.5 10*3/uL [facility] Monocytes/100 WBC (Bld) 6.8 % [facility] Neutrophils (Bld) [#/Vol] 6.1 10*3/uL [facility] Neutrophils/100 WBC (Bld) 80.4 % [facility] Basic Metabolic Panelon 05-29 Anion gap [Moles/Vol] 11 mmol/L 5 - 15 mmol/L [facility] Calcium [Mass/Vol] 9.0 mg/dL 8.5 - 10. 5 mg/dL [facility] Chloride [Moles/Vol] 98 mmol/L 98 - 10 9 mmol/L [facility] CO2 [Moles/Vol] 30 mmol/L 22 - 32 mmol/L [facility] Creatinine [Mass/Vol] 1.48 mg/dL High 0.40 - 1.00 mg/dL [facility] Comment on above: METHOD [facility] ST[facility] eGFR (CKD-EPI)non-race dependent 36 Low - PINF [facility] Comment on above: Reported eGFR is based on the CKD-EPI 2020 equation that does not use a race coefficient. Glucose [Mass/Vol] 243 mg/dL High 65 - 99 mg/dL [facility] Interpretation and review of laboratory results Abnormal [facility] Potassium [Moles/Vol] 3.8 mmol/L 3.5 - 5.0 mmol/L [facility] Sodium [Moles/Vol] 139 mmol/L 134 - 146 mmol/L [facility] Urea nitrogen [Mass/Vol] 24 mg/dL 5 - 27 mg/dL [facility] CBC without diffon Erythrocyte distribution width (RBC) [Ratio] 18.1 % High 11.5 - 15.0 % [facility] Hematocrit (Bld) [Volume fraction] 35.5 % 35 - 47 % [facility] Hemoglobin (Bld) [Mass/Vol] 11.7 g/dL 11.7 - 15.5 g/dL [facility] MCH (RBC) [Entitic mass] 29.0 pg 27 - 34 pg [facility] MCHC (RBC) [Mass/Vol] 33.1 g/dL 32 - 3 6 g/dL [facility] MCV (RBC) [Entitic vol] 88 fL 80 - 100 fL [facility] Platelet mean volume (Bld) [Entitic vol] 8.1 fL 7 - 12 fL [facility] Platelets (Bld) [#/Vol] 135 10*3/uL Low [facility] RBC (Bld) [#/Vol] 4.05 10*6/uL [facility] WBC corrected for nucl RBC Auto (Bld) [#/Vol] 7.6 [facility] Cardiac echo study Procedure on 06-22-2023 Radiology Study observation (narrative) [facility] ECG 12 leadon 06-22-2023 TRACEMASTERVUE [facility] Glucose Glucometer (BldC) [M ass/Vol]on 06-22-2023 Glucose [Mass/Vol] 183 mg/dL High 65 - 99 mg/dL [facility] Interpretation and review of laboratory results Abnormal [facility] Magnesiumon 06-22-2023 Magnesium [Mass/Vol] 2.0 mg/dL 1.8 - 2 .6 mg/dL [facility] Magnesium [Mass/Vol]on 06-22 [facility] No Panel Informationon 06-22 Interpretation and review of laboratory results Abnormal [facility] CBC auto differentialon 05-29 Basophils (Bld) [#/Vol] 0.1 10*3/uL [facility] Basophils/100 WBC (Bld) 0.9 % [facility] Eosinophils (Bld) [#/Vol] 0.1 10*3/uL [facility] Eosinophils/100 WBC (Bld) 1.5 % [facility] Erythrocyte distribution width (RBC) [Ratio] 17.6 % High 11.5 - 15.0 % [facility] Hematocrit (Bld) [Volume fraction] 37.3 % 35 - 47 % [facility] Hemoglobin (Bld) [Mass/Vol] 12.4 g/dL 11.7 - 15.5 g/dL [facility] Interpretation and review of laboratory results Abnormal [facility] Lymphocytes (Bld) [#/Vol] 0.9 10*3/uL Low [facility] Lymphocytes/100 WBC (Bld) 12.3 % [facility] MCH (RBC) [Entitic mass] 29.1 pg 27 - 34 pg [facility] MCHC (RBC) [Mass/Vol] 33.2 g/dL 32 - 3 6 g/dL [facility] MCV (RBC) [Entitic vol] 88 fL 80 - 100 fL [facility] Monocytes (Bld) [#/Vol] 0.4 10*3/uL [facility] Monocytes/100 WBC (Bld) 5.7 % [facility] Neutrophils (Bld) [#/Vol] 6.0 10*3/uL [facility] Neutrophils/100 WBC (Bld) 79.6 % [facility] Platelet mean volume (Bld) [Entitic vol] 8.6 fL 7 - 12 fL [facility] Platelets (Bld) [#/Vol] 129 10*3/uL Low [facility] RBC (Bld) [#/Vol] 4.27 10*6/uL [facility] WBC corrected for nucl RBC Auto (Bld) [#/Vol] 7.[address] [facility] Comprehensive metabolic pane rigoberto 06-21-2023 Albumin [Mass/Vol] 4.0 g/dL 3.2 - 5.3 g/dL [facility] ALP [Catalytic activity/Vol] 94 U/L 39 - 130 U/L [facility] ALT No additional P-5'-P [Catalytic activity/Vol] 28 U/L 0 - 31 U/L [facility] Anion gap [Moles/Vol] 8 mmol/L 5 - 15 mmol/L [facility] AST [Catalytic activity/Vol] 24 U/L 0 - 41 U/L [facility] Bilirubin [Mass/Vol] 0.7 mg/dL 0.3 - 1 .2 mg/dL [facility] Calcium [Mass/Vol] 9.2 mg/dL 8.5 - 10. 5 mg/dL [facility] Chloride [Moles/Vol] 104 mmol/L 98 - 10 9 mmol/L [facility] CO2 [Moles/Vol] 28 mmol/L 22 - 32 mmol/L [facility] Creatinine [Mass/Vol] 1.23 mg/dL High 0.40 - 1.00 mg/dL [facility] Comment on above: METHOD TRACEABLE TO [facility] STANDARD eGFR (CKD-EPI)non-race dependent 44 Low - PINF [facility] Comment on above: Reported eGFR is based on the CKD-EPI 2020 equation that does not use a race coefficient. Glucose [Mass/Vol] 159 mg/dL High 65 - 99 mg/dL [facility] Interpretation and review of laboratory results Abnormal [facility] Potassium [Moles/Vol] 4.2 mmol/L 3.5 - 5.0 mmol/L [facility] Protein [Mass/Vol] 7.4 g/dL 6.0 - 8.0 g/dL [facility] Sodium [Moles/Vol] 140 mmol/L 134 - 146 mmol/L [facility] Urea nitrogen [Mass/Vol] 21 mg/dL 5 - 27 mg/dL [facility] D-Dimeron 06-21-2023 Fibrin D-dimer DDU (PPP) [Mass/Vol] 268 High NINF [facility] Comment on above: Results >=255ng/mL DDU: Results may be indicative of the presence of VTE. The use of the Wells score and further diagnostic tests should be considered. Elevated D-Dimer levels can also be associated with DIC, neoplasm, , trauma and liver disease. Elevated levels of rheumatoid factor may lead to an overestimation of the D-Dimer level. ECG 12 leadOrdered By: Michel Garcia on 06-21-2023 [facility] Fibrin D-dimer DDU (PPP) [Ma ss/Vol]on 06-21-2023 Interpretation and review of laboratory results Abnormal [facility] Laboratory - Microbiology an d Antimicrobial susceptibilityon 06-21-2023 FLUAV+FLUBV RNA YUMIKO+probe Ql (Unsp spec) Negative Negative^N egative [facility] Natriuretic peptide B [Mass/ Vol]on 06-21-2023 Interpretation and review of laboratory results Abnormal [facility] Natriuretic peptide B (Bld) [Mass/Vol] 147 pg/mL High NINF - 100.0 pg/mL [facility] Procalcitoninon 06-21-2023 Procalcitonin IA [Mass/Vol] 0.07 ng/mL High NINF - 0.05 ng/mL [facility] Comment on above: NOTE <0.50 ng/mL - Low risk of severe sepsis and/or septic shock. <2.00 ng/mL - Recommend retesting within 6-24 hours. >2.00 ng/mL - High risk of sepsis and/or septic shock. Procalcitonin IA [Mass/Vol]o n 06-21-2023 Interpretation and review of laboratory results Abnormal [facility] SARS/FLU A+B/RSV by NAAT/Mol ecular (M4RT Collection Tube)on 06-21-2023 RSV RNA YUMIKO+probe Nom (Unsp spec) Negative Negative^N egative [facility] SARS-CoV-2 (COVID-19) RNA YUMIKO+probe Ql (Resp) Not detected Not Detected^N ot Detected [facility] Comment on above: NOTE The Xpert Xpress SARS-CoV-2/Flu/RSV Plus test [...] operators who are performing tests using either i[employer] DX or Tagstr systems and is limited to laboratories that [...] specimen repeat. Fact Sheet for Healthcare Providers: https://www.fda.gov/media/604596/download Fact Sheet for Patients: https://www.fda.gov/media/595176/download [employer] Troponin Ion 06-21-2023 Troponin I.cardiac [Mass/Vol] 0.01 ng/mL 0.00 - 0.04 ng/mL [employer] Troponin I.cardiac [Mass/Vol ]on 06-21-2023 [employer] XR Chest Single viewon 06-21 Portable chest: HISTORY: Shortness of breath. Single [...] Gen Posada MD on 06/21/2023 5:53 PM [employer] Gen Posada M D - 06/21/2023 Portable chest: HISTORY: Shortness of breath. Single [...] Gen Posada MD on 06/21/2023 5:53 PM [employer] Radiology Study observation (narrative) [employer] XR Chest Single viewOrdered By: Gen Posada on 06-21-2023 [employer] Work Phone: CBC AUTO DIFFon 03-28-2022 BASO # 0.0 103/ul Normal 0.0-0.1 [facility] Comment on above: Performed By: #### C BC #### [facility] [address] [place] [address] Dr. Keo Moran Basophils/100 WBC (Bld) 0.5 % Normal 0.2-2.0 [facility] Comment on above: Performed By: #### C BC #### [facility] [address] [place] [address] Dr. Keo Moran EO # 0.0 103/ul Normal 0.0-0.7 [facility] Comment on above: Performed By: #### C BC #### [facility] [address] [place] [address] Dr. Keo Moran Eosinophils/100 WBC (Bld) 0.0 % Critically low 0.9-7.0 [facility] Comment on above: Performed By: #### C BC #### [facility] [address] [place] [address] Dr. Keo Moran Erythrocyte distribution width (RBC) [Ratio] 14.7 % Normal 11.0-15.0 [facility] Comment on above: Performed By: #### C BC #### [facility] [address] [place] [address] Dr. Keo Moran Hematocrit (Bld) [Volume fraction] 36.7 % Normal 36.0-48.0 [facility] Comment on above: Performed By: #### C BC #### [facility] [address] [place] [address] Dr. Keo Moran Hemoglobin (Bld) [Mass/Vol] 11.7 g/dL Critically low 12.0-16.0 [facility] Comment on above: Performed By: #### C BC #### [facility] [address] [place] [address] Dr. Keo Moran IG # 0.02 10e3/ul Normal 0.00-0.03 [facility] Comment on above: Performed By: #### C BC #### [facility] [address] [place] [address] Dr. Keo Moran IG % 0.3 % Normal 0.0-0.5 [facility] Comment on above: Performed By: #### C BC #### [facility] [address] [address] [address] Keo Moran LYMPH # 0.5 103/ul Critically low 1.2-3.8 [facility] Comment on above: Performed By: #### C BC #### [facility] [address] [address] [address] Keo Moran Lymphocytes/100 WBC (Bld) 7.0 % Critically low 20.5-60.0 [facility] Comment on above: Performed By: #### C BC #### [facility] [address] [address] [address] Keo Moran MANUAL DIFF REQ NO Normal [facility] Comment on above: Performed By: #### C BC #### [facility] [address] [place] [address] Dr. Keo Moran MCH (RBC) [Entitic mass] 29.1 pg Normal 26.7-34.0 [facility] Comment on above: Performed By: #### C BC #### [facility] [address] [place] [address] Dr. Keo Moran MCHC (RBC) [Mass/Vol] 31.9 g/dL Normal 29.9-35.2 [facility] Comment on above: Performed By: #### C BC #### [facility] [address] [place] [address] Dr. Keo Moran MCV (RBC) [Entitic vol] 91.3 fL Normal 81.0-99.0 [facility] Comment on above: Performed By: #### C BC #### [facility] [address] [place] [address] Dr. Keo Moran MONO # 0.5 103/ul Normal 0.3-0.8 [facility] Comment on above: Performed By: #### C BC #### [facility] [address] [place] [address] Dr. Keo Moran Monocytes/100 WBC (Bld) 6.6 % Normal 1.7-12.0 [facility] Comment on above: Performed By: #### C BC #### [facility] [id number] Keo Moran NEUT # 6.2 103/ul Normal 1.4-6.5 [facility] Comment on above: Performed By: #### C BC #### [facility] [id number] Keo Moran Neutrophils/100 WBC (Bld) 85.6 % Critically high 43.0-75.0 [facility] Comment on above: Performed By: #### C BC #### [facility] [address] [address] [address] Keo Moran Platelet mean volume (Bld) [Entitic vol] 9.8 fL Normal 9.5-13.5 [facility] Comment on above: Performed By: #### C BC #### [facility] [address] [address] [address] Keo Moran PLT 143 103/ul Critically low 150-450 [facility] Comment on above: Performed By: #### C BC #### [facility] [address] [address] [address] Keo Moran RBC 4.02 106/ul Critically low 4.20-5.40 [facility] Comment on above: Performed By: #### C BC #### [facility] [address] [address] [address] Keo Moran WBC 7.3 103/ul Normal 4.0-11.0 [facility] Comment on above: Performed By: #### C BC #### [facility] [address] [address] [address] Keo Moran GLYCOHEMOGLOBIN A1Con 2021 ADA RECOMMENDATION SEE BELOW Normal [facility] Comment on above: Result Comment: ADA RECOMMENDED LIMIT 4.0 - 6.0 ADA THERAPEUTIC TARGET < 7.0 ACTION SUGGESTED > 7.0 Performed By: #### A 1C ####[facility] [address] [id number]. Keo Moran Glucose [Mass/Vol] 283 mg/dL Normal [facility] Comment on above: Performed By: #### A 1C ####[facility] [address] [id number]. Keo Moran HbA1c (Bld) [Mass fraction] 11.5 % Critically high 4.5-6.2 [facility] Comment on above: Performed By: #### A 1C ####[facility] [address] [address]Dr. Keo Moran PROF CHEM 8 (BAS METB)on Anion gap [Moles/Vol] 11.6 mmol/L Normal [facility] Comment on above: Performed By: #### B MP ####[facility] [address] [address]Dr. Keo Moran Calcium [Mass/Vol] 9.3 mg/dL Normal 8.5-10.1 [facility] Comment on above: Performed By: #### B MP ####[facility] [address] [place], [place] [address]Dr. Keo Moran Chloride [Moles/Vol] 104 mmol/L Normal 98-107 [facility] Comment on above: Performed By: #### B MP ####[facility] [address] [place], [place] [address]Dr. Keo Moran CO2 [Moles/Vol] 30.0 mmol/L Normal 21.0-32.0 [facility] Comment on above: Performed By: #### B MP ####[facility] [address] [place], [place] [address]Dr. Keo Moran Creatinine [Mass/Vol] 1.74 mg/dL Critically high 0.55-1.02 [facility] Comment on above: Performed By: #### B MP ####[facility] [address] [place], [place] [address]Dr. Keo Moran EGFR-AF INDIAN 34 mL/min/1.73m2 Critically low >=60 [facility] Comment on above: Performed By: #### B MP ####[facility] [address] [place], [place] [address]Dr. Keo Moran EGFR-NON AF INDIAN 28 mL/min/1.73m2 Critically low >=60 [facility] Comment on above: Performed By: #### B MP ####[facility] [address] [address]Dr. Keo Moran Glucose [Mass/Vol] 164 mg/dL Critically high 74-106 [facility] Comment on above: Performed By: #### B MP ####[facility] [address] [id number]. Keo Moran Potassium [Moles/Vol] 4.6 mmol/L Normal 3.5-5.1 [facility] Comment on above: Performed By: #### B MP ####[facility] [address] [address]Dr. Keo Moran Sodium [Moles/Vol] 141 mmol/L Normal 136-145 [facility] Comment on above: Performed By: #### B MP ####[facility] [address] [address]Dr. Keo Moran Urea nitrogen [Mass/Vol] 26.0 mg/dL Critically high 7.0-18.0 [facility] Comment on above: Performed By: #### B MP ####[facility] [address] [address]Dr. Keo Moran Urea nitrogen/Creatinine [Mass ratio] 14.9 mg/mg Normal [facility] Comment on above: Performed By: #### B MP ####[facility] [address] [address]Dr. Keo Moran XR TSPINE 3 VIEWSon 02-28-20 22 XR TSPINE 3 VIEWS EXAMINATION: XR TSPI [...] DENICE NAQVI Date: 2022-02-27 16:26 Normal [facility] VC COMP CONSULTATIONon 02-20 VC COMP CONSULTATION Patient: Shahram LY Exam Date: 02/20/2022 : 1940 Gender:F Ordering : SHAIKH Jose WEISS . Admission #: [id number] Family : Order #: [id number] CLICK HERE TO VIEW EXAM RADIOLOGY REPORT [...] pack year history of smoking, discontinuing in 2015. Occasional social alcohol use. No illicit drug [...] Naqvi MD on 02/20/2022 at 10:49 Normal [facility] VC VENOUS REFLUX JOSE L LMTon 0 02-20-2022 VC VENOUS REFLUX JOSE L LMT Patient: KAY LY Exam Date: 02/20/2022 : 1940 Gender:F Ordering : SHAIKH Jose WEISS . Admission #: [id number] Family : DR DENICE NAQVI M.D. Order #: [id number] CLICK HERE TO VIEW EXAM RADIOLOGY REPORT [...] chronic thrombus visualized Compressibility: Normal Flow: Normal Vending Machine Attendant: Dist/med calf 2.2mm with 0s reflux. Tech [...] MD on 02/20/2022 at 10:18 Normal [facility] XR CSPINE MIN 4 VIEWSon 01-26 XR [...] by: ALDO ALBRIGHT Date: 2022-02-07 11:32 Normal [facility] GLYCOHEMOGLOBIN A1Con 2021 ADA RECOMMENDATION SEE BELOW Normal [facility] Comment on above: Result Comment: ADA RECOMMENDED LIMIT 4.0 - 6.0 ADA THERAPEUTIC TARGET < 7.0 ACTION SUGGESTED > 7.0 Performed By: #### A 1C #### [facility] [address] [address] [address] Keo Moran Glucose [Mass/Vol] 286 mg/dL Normal [facility] Comment on above: Performed By: #### A 1C #### [facility] [address] [address] [address] Keo Moran HbA1c (Bld) [Mass fraction] 11.6 % Critically high 4.5-6.2 [facility] Comment on above: Performed By: #### A 1C #### [facility] [address] [place] [address] Dr. Keo Moran ECHOCARDIO M/2D COMPLETEon 0 10-07-2021 ECHOCARDIO M/2D COMPLETE Patient: KAY LY Exam Date: 10/07/2021 : 1940 Gender:F Ordering : SHAIKH Jose WEISS . Admission #: [id number] Family : Order #: [id number] CLICK HERE TO VIEW EXAM ECHOCARDIOGRAM REPORT [...] Area(A4C): 26.40 cm2 Left Atrium Systolic Volume(A4C): 069018 mm3 Mitral Valve MV E to A [...] Martinez M.D. on 10/07/2021 at 13:20 Normal [facility] BNPon 09-20-2021 Natriuretic peptide B (Bld) [Mass/Vol] 461.0 pg/mL Normal <=1,800.0 [facility] Comment on above: Performed By: #### B MISSION WORKER, CMP #### [facility] [address] [place] [address] Dr. Keo Moran CBC W MANUAL DIFFon 09-21-19 22 ATYPICAL LYMPH # Normal [facility] Comment on above: Performed By: #### C WOOMAN #### [facility] [address] [place] [address] Dr. Keo Moran ATYPICAL LYMPH % Normal [facility] Comment on above: Performed By: #### C BCMAN #### [facility] [address] [place] [address] Dr. Keo Moran BAND # Normal 0.0-0.3 [facility] Comment on above: Performed By: #### C BCMAN #### [facility] [address] [place] [address] Dr. Keo Moran BAND % Normal 0-5 [facility] Comment on above: Performed By: #### C BCMAN #### [facility] [address] [place] [address] Dr. Keo Moran BASOM # 0.00 103/ul Normal 0.00-0.10 [facility] Comment on above: Performed By: #### C BCMAN #### [facility] [address] [place] [address] Dr. Keo VEGA % 0.0 % Critically low 0.2-2.0 [facility] Comment on above: Performed By: #### C WOOMAN #### [facility] [address] [place] [address] Dr. Keo Moran BLAST # Normal [facility] Comment on above: Performed By: #### C BCSURJIT #### [facility] [address] [address] [address] Keo Moran BLAST % Normal [facility] Comment on above: Performed By: #### C BCSURJIT #### [facility] [address] [place] [address] Dr. Keo Moran CORRECTED WBC Normal 4.0-11.0 [facility] Comment on above: Performed By: #### C BCSURJIT #### [facility] [address] [place] [address] Dr. Keo Moran EOS # 0.95 103/ul Critically high 0.00-0.70 [facility] Comment on above: Performed By: #### C CRUZ #### [facility] [address] [place] [address] Dr. Keo Moran EOS% 10.0 % Critically high 0.9-7.0 [facility] Comment on above: Performed By: #### C CRUZ #### [facility] [address] [place] [address] Dr. Keo Moran HCT 37.0 % Normal 36.0-48.0 [facility] Comment on above: Performed By: #### C CRUZ #### [facility] [address] [place] [address] Dr. Keo Moran HGB 11.5 g/dl Critically low 12.0-16.0 [facility] Comment on above: Performed By: #### C BCSURJIT #### [facility] [address] [place] [address] Dr. Keo Moran LYMPHM # 1.71 103/ul Normal 1.20-3.80 [facility] Comment on above: Performed By: #### C BCSURJIT #### [facility] [address] [place] [address] Dr. Keo Moran LYMPHM% 18.0 % Critically low 20.5-60.0 [facility] Comment on above: Performed By: #### C BCSURJIT #### [facility] [address] [address] [address] Keo Moran MCH 29.2 pg Normal 26.7-34.0 [facility] Comment on above: Performed By: #### C CRUZ #### [facility] [address] [place] [address] Dr. Keo Moran MCHC 31.1 g/dl Normal 29.9-35.2 [facility] Comment on above: Performed By: #### C CRUZ #### [facility] [address] [place] [address] Dr. Keo Moran MCV 93.9 fL Normal 81.0-99.0 [facility] Comment on above: Performed By: #### C CRUZ #### [facility] [address] [place] [address] Dr. Keo Moran METAMYELOCYTE # Normal [facility] Comment on above: Performed By: #### C CRUZ #### [facility] [address] [place] [address] Dr. Keo Moran METAMYELOCYTE % Normal [facility] Comment on above: Performed By: #### C CRUZ #### [facility] [address] [place] [address] Dr. Keo Moran MONOM# 0.38 103/ul Normal 0.30-0.80 [facility] Comment on above: Performed By: #### C CRUZ #### [facility] [address] [place] [address] Dr. Keo Moran MONOM% 4.0 % Normal 1.7-12.0 [facility] Comment on above: Performed By: #### C CRUZ #### [facility] [address] [place] [address] Dr. Keo Moran MPV 9.9 fL Normal 9.5-13.5 [facility] Comment on above: Performed By: #### C CRUZ #### [facility] [address] [place] [address] Dr. Keo Moran MYELOCYTE # Normal [facility] Comment on above: Performed By: #### C CRUZ #### [facility] [address] [address] [address] Keo Moran MYELOCYTE % Normal [facility] Comment on above: Performed By: #### C BCMAN #### [facility] [address] [address] [address] Keo Moran NRBC Normal [facility] Comment on above: Performed By: #### C BCSURJIT #### [facility] [address] [address] [address] Keo Moran PLT 173 103/ul Normal 150-450 [facility] Comment on above: Performed By: #### C CRUZ #### [facility] [address] [address] [address] Keo Moran RBC 3.94 106/ul Critically low 4.20-5.40 [facility] Comment on above: Performed By: #### C CRUZ #### [facility] [address] [place] [address] Dr. Keo Moran RDW 15.7 % Critically high 11.0-15.0 [facility] Comment on above: Performed By: #### C CRUZ #### [facility] [address] [address] [address] Keo Moran SEG # 6.46 103/ul Normal 1.40-6.50 [facility] Comment on above: Performed By: #### C CRUZ #### [facility] [address] [address] [address] Keo Moran SEG % 68.0 % Normal 43.0-75.0 [facility] Comment on above: Performed By: #### C BCSURJIT #### [facility] [address] [address] [address] Keo Moran WBC 9.5 103/ul Normal 4.0-11.0 [facility] Comment on above: Performed By: #### C BCMAN #### [facility] [address] [address] [address] Keo Moran PROF 14(COMP METB)on 022 Albumin [Mass/Vol] 3.2 g/dL Critically low 3.4-5.0 [facility] Comment on above: Performed By: #### B MISSION WORKER, CMP ####[facility] [address] [id number]. Hermilabettina Dean Albumin/Globulin [Mass ratio] 0.9 {ratio} Normal [facility] Comment on above: Performed By: #### B MISSION WORKER, CMP ####[facility] [address] [place], [place] [address]Nf. Keo Moran ALP [Catalytic activity/Vol] 116 U/L Normal 46-116 [facility] Comment on above: Performed By: #### B MISSION WORKER, CMP ####[facility] [address] [id number]. Keo Moran ALT [Catalytic activity/Vol] 23 U/L Normal 14-59 [facility] Comment on above: Performed By: #### B MISSION WORKER, CMP ####[facility] [address] [id number]. Keo Moran Anion gap [Moles/Vol] 14.6 mmol/L Normal [facility] Comment on above: Performed By: #### B MISSION WORKER, CMP ####[facility] [address] [id number]. Keo Moran AST [Catalytic activity/Vol] 11 U/L Critically low 15-37 [facility] Comment on above: Performed By: #### B MISSION WORKER, CMP ####[facility] [address] [id number]. Keo Moran Bilirubin [Mass/Vol] 0.6 mg/dL Normal 0.2-1.0 [facility] Comment on above: Performed By: #### B MISSION WORKER, CMP ####[facility] [address] [id number]. Keo Moran Calcium [Mass/Vol] 8.5 mg/dL Normal 8.5-10.1 [facility] Comment on above: Performed By: #### B MISSION WORKER, CMP ####[facility] [address] [id number]. Keo Moran Chloride [Moles/Vol] 102 mmol/L Normal 98-107 [facility] Comment on above: Performed By: #### B MISSION WORKER, CMP ####[facility] [address] [address]Dr. Keo Moran CO2 [Moles/Vol] 24.7 mmol/L Normal 21.0-32.0 [facility] Comment on above: Performed By: #### B MISSION WORKER, CMP ####[facility] [address] [address]Dr. Keo Moran Creatinine [Mass/Vol] 1.10 mg/dL Critically high 0.55-1.02 [facility] Comment on above: Performed By: #### B MISSION WORKER, CMP ####[facility] [address] [place], [place] [address]Dr. Keo Moran EGFR-AF INDIAN Normal >=60 [facility] Comment on above: Performed By: #### B MISSION WORKER, CMP ####[facility] [address] [place], [place] [address]Dr. Keo Moran EGFR-NON AF INDIAN Normal >=60 [facility] Comment on above: Performed By: #### B MISSION WORKER, CMP ####[facility] [address] [place], [place] [address]Dr. Keo Moran Globulin (S) [Mass/Vol] 3.6 g/dL Normal [facility] Comment on above: Performed By: #### B MISSION WORKER, CMP ####[facility] [address] [place], [place] [address]Dr. Keo Moran Glucose [Mass/Vol] 346 mg/dL Critically high 74-106 [facility] Comment on above: Performed By: #### B MISSION WORKER, CMP ####[facility] [address] [place], [place] [address]Dr. Keo Moran Potassium [Moles/Vol] 4.3 mmol/L Normal 3.5-5.1 [facility] Comment on above: Performed By: #### B MISSION WORKER, CMP ####[facility] [address] [address]Dr. Keo Moran Protein [Mass/Vol] 6.8 g/dL Normal 6.1-8.2 [facility] Comment on above: Performed By: #### B MISSION WORKER, CMP ####[facility] [address] [address]Dr. Keo Moran Sodium [Moles/Vol] 137 mmol/L Normal 136-145 [facility] Comment on above: Performed By: #### B MISSION WORKER, CMP ####[facility] [address] [place] [address]Dr. Keo Moran Urea nitrogen [Mass/Vol] 19.0 mg/dL Critically high 7.0-18.0 [facility] Comment on above: Performed By: #### B MISSION WORKER, CMP ####[facility] [address] [place] [address]Dr. Keo Moran Urea nitrogen/Creatinine [Mass ratio] 17.3 mg/mg Normal [facility] Comment on above: Performed By: #### B MISSION WORKER, CMP ####[facility] [address] [place], [place] [address]DrJulieta Moran URINE T PROTEIN CREAT RATIOo 09-20-2021 Protein (U) [Mass/Vol] 29.7 mg/dL Critically high <=12.0 [facility] Comment on above: Performed By: #### U RTPCR #### [facility] [address] [place] [address] Dr. Keo Moran UR PROT CREAT RAT 0.42 Normal [facility] Comment on above: Performed By: #### U RTPCR #### [facility] [address] [place] [address] Dr. Keo Moran URINE CREAT 70.38 mg/dL Normal 20.00-300. 00 [facility] Comment on above: Performed By: #### U RTPCR #### [facility] [address] [place] [address] Dr. Keo Moran XR CHEST 2 Von [...] by: DENICE NAQVI Date: 2021-09-20 15:22 Normal [facility] XR MODIFIED BARIUM SWALLOWon 08-22-2021 XR MODIFIED [...] by: DENICE NAQVI Date: 2021-08-22 12:00 Normal [facility] CT CHEST W CONon 05-30-2021 CT CHEST [...] evaluated at the lateral margin of the [id number]. Nonspecific left breast anterior skin thickening is [...] imaged at the lateral margin of the [id number]. The right breast is incompletely evaluated. If [...] LA CRUZ Date: 2021-05-30 04:29 Normal [facility] PROF CHEM 8 (BAS METB)on Anion gap [Moles/Vol] 12.1 mmol/L Normal [facility] Comment on above: Performed By: #### B MP ####[facility] [address] [place], [place] [address]XgJulieta Keo Dean Calcium [Mass/Vol] 9.3 mg/dL Normal 8.4-10.2 [facility] Comment on above: Performed By: #### B MP ####[facility] [address] [place] [id number]. Keo Moran Chloride [Moles/Vol] 105 mmol/L Normal 98-107 [facility] Comment on above: Performed By: #### B MP ####[facility] [address] [place] [id number]. Keo Moran CO2 [Moles/Vol] 31.2 mmol/L Critically high 22.0-30.0 [facility] Comment on above: Performed By: #### B MP ####[facility] [address] [place] [address]Dr. Keo Moran Creatinine [Mass/Vol] 0.91 mg/dL Normal 0.52-1.04 [facility] Comment on above: Performed By: #### B MP ####[facility] [address] [place] [address]Dr. Hermilabettina Dean EGFR-AF INDIAN >60 Normal >=60 The [facility] Comment on above: Performed By: #### B MP ####[facility] [address] [place], [place] [address]Dr. Hermilabettina Dean EGFR-NON AF INDIAN 60 mL/min/1.73m2 Normal >=60 [facility] Comment on above: Performed By: #### B MP ####[facility] [address] [place], [place] [address]Dr. Hermilabettina Moran Glucose [Mass/Vol] 103 mg/dL Normal 74-106 [facility] Comment on above: Performed By: #### B MP ####[facility] [address] [place], [place] [address]Dr. Keo Moran Potassium [Moles/Vol] 4.3 mmol/L Normal 3.4-5.0 [facility] Comment on above: Performed By: #### B MP ####[facility] [address] [place], [place] [address]Dr. Hermilabettina Moran Sodium [Moles/Vol] 144 mmol/L Normal 137-145 The [facility] Comment on above: Performed By: #### B MP ####[facility] [address] [place], [place] [address]Nq. Keo Moran Urea nitrogen [Mass/Vol] 18.0 mg/dL Critically high 7.0-17.0 [facility] Comment on above: Performed By: #### B MP ####[facility] [address] [place], [place] [address]Yx. Keo Moran Urea nitrogen/Creatinine [Mass ratio] 19.8 mg/mg Normal [facility] Comment on above: Performed By: #### B MP ####[facility] [address] [place], [place] [address]Vw. Keo Moran MAMMO POST BIOPSY RIGHTon MAMMO POST BIOPSY RIGHT Patient: KAY LY Exam Date: 05/04/2021 : 1940 Gender:F Ordering : SHAIKH Jose WEISS . Admission #: [id number] Family : Order #: [id number] CLICK HERE TO VIEW EXAM This report [...] Albright M.D. on 05/26/2021 at 15:43 Normal [facility] US VAC ASST BX BRST RT W CLI Nando 05-04-2021 US VAC ASST BX BRST RT W CLIP Patient: KAY LY Exam Date: 05/04/2021 : 1940 Gender:F Ordering : ChrisJulieta WEISS . Admission #: [id number] Family : Order #: [id number] CLICK HERE TO VIEW EXAM This report [...] Albright M.D. on 05/13/2021 at 11:28 Normal [facility] MG MAMM DIAGNOSTIC 3D JOSE L CA Don 04-28-2021 MG MAMM DIAGNOSTIC 3D JOSE L CAD Patient: KYA LY Exam Date: 04/28/2021 : 1940 Gender:F Ordering : SHAIKH Jose WEISS . Admission #: [id number] Family : Order #: [id number] CLICK HERE TO VIEW EXAM RADIOLOGY REPORT [...] Treatments None Family Cancers None LOCATION: [facility] BREAST COMPOSITION: Heterogeneously dense,which may obscure small [...] M.D. on 04/28/2021 at 13:31 Normal [facility] US BREAST RIGHT LIMITEDon US BREAST RIGHT LIMITED Patient: KAY LY Exam Date: 04/28/2021 : 1940 Gender:F Ordering : ChrisJulieta WEISS . Admission #: [id number] Family : Order #: [id number] CLICK HERE TO VIEW EXAM RADIOLOGY REPORT [...] Treatments None Family Cancers None LOCATION: [facility] BREAST COMPOSITION: Heterogeneously dense,which may obscure small [...] M.D. on 04/28/2021 at 13:31 Normal [facility] Cardiovascular Lab Reporton 07-12-2019 Cardiovascular Lab Report [facility]: [id number] Department of Physician: Char Law M.D. Division of Service Date: 07/11/2019 Cardiology Birthdate: 1940 Adult Cardiovascular Room #: [place] [address] Cardiovascular Laboratory Report FINAL IMPRESSIONS: 1. Moderate [...] Follow up with Dr. Martinez in the [place] office in the next 1 to 2 [...] right internal jugular vein was obtained. A 6-Polish glide sheath was inserted without difficulty. Pressures [...] was achieved over the left wrist. A 6-Polish glide sheath was inserted without difficulty. Bilateral [...] P Paul Martinez M.D. Date Dict: 07/11/2019/03:09 P/Paul Martinez M.D. Date Trans: 07/12/2019 09:16 Klaus/jeremie [id number] cc: Rebecca Hirsch M.D. [address] [place] [id number] [facility] BASIC METABOLIC PANELon 06-28 Calcium [Mass/Vol] 10.1 mg/dL Normal 8.6-10.3 [facility] Comment on above: Performed By: #### 0 0071 #### [facility] [address] [place] [address], [facility] Chloride [Moles/Vol] 103 mmol/L Normal 98-107 [facility] Comment on above: Performed By: #### 0 0071 #### [facility] [address] [place] [address], [place] CO2 [Moles/Vol] 26 mmol/L Normal 21-31 [facility] Comment on above: Performed By: #### 0 0071 #### [facility] [address] [place] [address], [place] Creatinine [Mass/Vol] 1.06 mg/dL Normal 0.60-1.20 [facility] Comment on above: Performed By: #### 0 0071 #### [facility] [address] [place] [address], [place] GFR/1.73 sq M predicted among blacks MDRD (S/P/Bld) [Vol rate/Area] mL/min/{1.73_m2} Normal >60 [facility] Comment on above: Result Comment: Calc ulation may not be valid for patients over 70 years Performed By: #### 0 0071 #### [facility] [address] [place] [address], [place] GFR/1.73 sq M predicted among non-blacks MDRD (S/P/Bld) [Vol rate/Area] 50 ml/min/1.73sq m Abnormal >[address] [facility] Comment on above: Result Comment: Calc ulation may not be valid for patients over 70 years Performed By: #### 0 0071 #### [facility] [address] [place] [address], [place] Glucose [Mass/Vol] 195 mg/dL High 70-100 The [facility] Comment on above: Performed By: #### 0 0071 #### [facility] [address] [place] [address], [place] Potassium [Moles/Vol] 4.9 mmol/L Normal 3.5-5.1 [facility] Comment on above: Performed By: #### 0 0071 #### [facility] [address] [place] [address], [place] Sodium [Moles/Vol] 136 mmol/L Normal 136-145 [facility] Comment on above: Performed By: #### 0 0071 #### [facility] [address] [place] [address], [facility] Urea nitrogen [Mass/Vol] 19 mg/dL Normal 7-25 [facility] Comment on above: Performed By: #### 0 0071 #### [facility] [address] Vital Signs Date Time Vital Sign Value Performing Clinician Facility 01-12-2025 11:46-0400 Body height 157.5 cm George Hayden MD Work Phone: [facility] 01-12-2025 11:46-0400 Body mass index (BMI) [Ratio] 31.09 kg/m2 George Hayden MD Work Phone: [facility] 01-12-2025 11:46-0400 Body temperature 95.7 [degF] George Hayden MD Work Phone: [facility] 01-12-2025 11:46-0400 Body weight 77.11 kg George Hayden MD Work Phone: [facility] 01-12-2025 11:46-0400 Diastolic blood pressure 66 mm[Hg] George Hayden MD Work Phone: [facility] 01-12-2025 11:46-0400 Heart rate 65 /min George Hayden MD Work Phone: [facility] 01-12-2025 11:46-0400 Respiratory rate 24 /min George Hayden MD Work Phone: [facility] 01-12-2025 11:46-0400 SaO2% (BldA) [Mass fraction] 91 % George Hayden MD Work Phone: [facility] 01-12-2025 11:46-0400 Systolic blood pressure 118 mm[Hg] George Hayden MD Work Phone: [facility] 12-23-2024 11:54-0400 Body height 157.5 cm George Hayden MD Work Phone: [facility] 12-23-2024 11:54-0400 Body mass index (BMI) [Ratio] 30 kg/m2 George Hayden MD Work Phone: [facility] 12-23-2024 11:54-0400 Body temperature 97.3 [degF] George Hayden MD Work Phone: [facility] 12-23-2024 11:54-0400 Body weight 74.39 kg George Hayden MD Work Phone: [facility] 12-23-2024 11:54-0400 Diastolic blood pressure 72 mm[Hg] George Hayden MD Work Phone: [facility] 12-23-2024 11:54-0400 Heart rate 82 /min George Hayden MD Work Phone: [facility] 12-23-2024 11:54-0400 Respiratory rate 24 /min George Hayden MD Work Phone: [facility] 12-23-2024 11:54-0400 SaO2% (BldA) [Mass fraction] 92 % George Hayden MD Work Phone: [facility] 12-23-2024 11:54-0400 Systolic blood pressure 134 mm[Hg] George Hayden MD Work Phone: [facility] 12-08-2024 19:16-0400 Body temperature 97.7 [degF] Miguel Gomez MD Work Phone: [facility] 12-08-2024 19:16-0400 Diastolic blood pressure 47 mm[Hg] Miguel Gomez MD Work Phone: [facility] 12-08-2024 19:16-0400 Heart rate 79 /min Miguel Gomez MD Work Phone: [facility] 12-08-2024 19:16-0400 Respiratory rate 18 /min Miguel Gomez MD Work Phone: [facility] 12-08-2024 19:16-0400 SaO2% (BldA) [Mass fraction] 92 % Miguel Gomez MD Work Phone: [facility] 12-08-2024 19:16-0400 Systolic blood pressure 101 mm[Hg] Miguel Gomez MD Work Phone: [facility] 12-08-2024 03:15-0400 Body mass index (BMI) [Ratio] 31.86 kg/m2 Miguel Gomez MD Work Phone: [facility] 12-08-2024 03:15-0400 Body weight 79.02 kg Miguel Gomez MD Work Phone: [facility] 12-06-2024 23:48-0400 Body height 157.5 cm Miguel Gomez MD Work Phone: [facility] 12-05-2024 08:57-0400 Body height 157.5 cm Kayy Hines PA-C Work Phone: [facility] 12-05-2024 08:57-0400 Body mass index (BMI) [Ratio] 32.01 kg/m2 Kayy Hines PA-C Work Phone: [facility] 12-05-2024 08:57-0400 Body weight 79.38 kg Kayy Hines PA-C Work Phone: [facility] 12-05-2024 08:57-0400 Diastolic blood pressure 79 mm[Hg] Kayy Hines PA-C Work Phone: [facility] 12-05-2024 08:57-0400 Heart rate 91 /min Kayy Hines PA-C Work Phone: [facility] 12-05-2024 08:57-0400 Systolic blood pressure 140 mm[Hg] Kayy Hines PA-C Work Phone: [facility] 11-05-2024 11:10-0400 Body height 157.5 cm George Hayden MD Work Phone: [facility] 11-05-2024 11:10-0400 Body mass index (BMI) [Ratio] 31.28 kg/m2 George Hayden MD Work Phone: [facility] 11-05-2024 11:10-0400 Body temperature 97.11 [degF] George Hayden MD Work Phone: [facility] 11-05-2024 11:10-0400 Body weight 77.56 kg George Hayden MD Work Phone: [facility] 11-05-2024 11:10-0400 Diastolic blood pressure 66 mm[Hg] George Hayden MD Work Phone: [facility] 11-05-2024 11:10-0400 Heart rate 86 /min George Hayden MD Work Phone: [facility] 11-05-2024 11:10-0400 Respiratory rate 22 /min George Hayden MD Work Phone: [facility] 11-05-2024 11:10-0400 SaO2% (BldA) [Mass fraction] 85 % George Hayden MD Work Phone: [facility] 11-05-2024 11:10-0400 Systolic blood pressure 132 mm[Hg] George Hayedn MD Work Phone: [facility] 09-05-2024 08:57-0400 Body height 157.5 cm Kayy Hines PA-C Work Phone: [facility] 09-05-2024 08:57-0400 Body mass index (BMI) [Ratio] 32.01 kg/m2 Kayy Hines PA-C Work Phone: [facility] 09-05-2024 08:57-0400 Body weight 79.38 kg Kayy Hines PA-C Work Phone: [facility] 09-05-2024 08:57-0400 Diastolic blood pressure 76 mm[Hg] Kayy Hines PA-C Work Phone: [facility] 09-05-2024 08:57-0400 Heart rate 81 /min Kayy Hines PA-C Work Phone: [facility] 09-05-2024 08:57-0400 Systolic blood pressure 133 mm[Hg] Kayy Donny BURRELL Work Phone: [facility] 06-25-2024 14:19-0500 Body height 157.5 cm Jyoti Wiggins MISSION WORKER Work Phone: [facility] 06-25-2024 14:19-0500 Body mass index (BMI) [Ratio] 36.21 kg/m2 Jyoti Wiggins MISSION WORKER Work Phone: [facility] 06-25-2024 14:19-0500 Body temperature 96.91 [degF] Jyoti Wiggins MISSION WORKER Work Phone: [facility] 06-25-2024 14:19-0500 Body weight 89.81 kg Jyoti Wiggins MISSION WORKER Work Phone: [facility] 06-25-2024 14:19-0500 Diastolic blood pressure 68 mm[Hg] Jyoti Wiggins MISSION WORKER Work Phone: [facility] 06-25-2024 14:19-0500 Heart rate 86 /min Jyoti Wiggins MISSION WORKER Work Phone: [facility] 06-25-2024 14:19-0500 Respiratory rate 18 /min Jyoti Wiggins MISSION WORKER Work Phone: [facility] 06-25-2024 14:19-0500 SaO2% (BldA) [Mass fraction] 93 % Jyoti Wiggins MISSION WORKER Work Phone: [facility] 06-25-2024 14:19-0500 Systolic blood pressure 120 mm[Hg] Jyoti Wiggins MISSION WORKER Work Phone: [facility] 06-02-2024 09:49-0500 Body height 157.5 cm Sebastian Stan PASTEURIZER-BODY STRAIGHTENER Work Phone: [facility] [employer] [facility] 06-02-2024 09:49-0500 Body mass index (BMI) [Ratio] 32.51 kg/m2 Sebastian Stan PASTEURIZER-BODY STRAIGHTENER Work Phone: [facility] [employer] [facility] 06-02-2024 09:49-0500 Body temperature 97.2 [degF] Sebastian Stan PASTEURIZER-BODY STRAIGHTENER Work Phone: [facility] [employer] [facility] 06-02-2024 09:49-0500 Body weight 80.65 kg Sebastian Stan PASTEURIZER-BODY STRAIGHTENER Work Phone: [facility] [employer] [facility] 06-02-2024 09:49-0500 Diastolic blood pressure 81 mm[Hg] Sebastian Stan PASTEURIZER-BODY STRAIGHTENER Work Phone: [facility] [employer] [facility] 06-02-2024 09:49-0500 Heart rate 92 /min Sebastian Stan PASTEURIZER-BODY STRAIGHTENER Work Phone: [facility] [employer] [facility] 06-02-2024 09:49-0500 Respiratory rate 20 /min Sebastian Stan PASTEURIZER-BODY STRAIGHTENER Work Phone: [facility] [employer] [facility] 06-02-2024 09:49-0500 SaO2% (BldA) [Mass fraction] 96 % Sebastian Stan PASTEURIZER-BODY STRAIGHTENER Work Phone: [facility] [employer] [facility] 06-02-2024 09:49-0500 Systolic blood pressure 139 mm[Hg] Sebastian Stan PASTEURIZER-BODY STRAIGHTENER Work Phone: [facility] [employer] [facility] 03-12-2024 10:30-0400 Body height 157.5 cm Jhoana Pierre MD Work Phone: [facility] 03-12-2024 10:30-0400 Body mass index (BMI) [Ratio] 35.85 kg/m2 Jhoana Pierre MD Work Phone: [facility] 03-12-2024 10:30-0400 Body weight 88.91 kg Jhoana Pierre MD Work Phone: [facility] 03-12-2024 10:30-0400 Diastolic blood pressure 82 mm[Hg] Jhoana Pierre MD Work Phone: [facility] 03-12-2024 10:30-0400 Heart rate 71 /min Jhoana Pierre MD Work Phone: [facility] 03-12-2024 10:30-0400 Respiratory rate 16 /min Jhoana Pierre MD Work Phone: [facility] 03-12-2024 10:30-0400 Systolic blood pressure 140 mm[Hg] Jhoana Pierre MD Work Phone: [facility] 03-07-2024 09:55-0400 Body height 157.5 cm Kayy Hines PA-C Work Phone: [facility] 03-07-2024 09:55-0400 Body mass index (BMI) [Ratio] 34.2 kg/m2 Kayy Hines PA-C Work Phone: [facility] 03-07-2024 09:55-0400 Body weight 84.82 kg Kayy Hines PA-C Work Phone: [facility] 03-07-2024 09:55-0400 Diastolic blood pressure 71 mm[Hg] Kayy Hines PA-C Work Phone: [facility] 03-07-2024 09:55-0400 Heart rate 75 /min Kayy Hines PA-C Work Phone: [facility] 03-07-2024 09:55-0400 Systolic blood pressure 114 mm[Hg] Kayy Hines PA-C Work Phone: [facility] 03-06-2024 08:19-0400 Body height 157.5 cm Jyoti Wiggins NP Work Phone: [facility] 03-06-2024 08:19-0400 Body mass index (BMI) [Ratio] 35.19 kg/m2 Jyoti Tuckerpatrick MISSION WORKER Work Phone: [facility] 03-06-2024 08:19-0400 Body temperature 96.4 [degF] Jyoti Wiggins MISSION WORKER Work Phone: [facility] 03-06-2024 08:19-0400 Body weight 87.27 kg Jyoti Wiggins MISSION WORKER Work Phone: [facility] 03-06-2024 08:19-0400 Diastolic blood pressure 60 mm[Hg] Jyoti Wiggins MISSION WORKER Work Phone: [facility] 03-06-2024 08:19-0400 Heart rate 109 /min Jyoti Wiggins MISSION WORKER Work Phone: [facility] 03-06-2024 08:19-0400 Respiratory rate 16 /min Jyoti Wiggins MISSION WORKER Work Phone: [facility] 03-06-2024 08:19-0400 SaO2% (BldA) [Mass fraction] 93 % Jyoti Wiggins MISSION WORKER Work Phone: [facility] 03-06-2024 08:19-0400 Systolic blood pressure 110 mm[Hg] Jyoti Wiggins MISSION WORKER Work Phone: [facility] 02-01-2024 15:06-0400 Body height 157.5 cm Dean Gunter MD Work Phone: [facility] 02-01-2024 15:06-0400 Body mass index (BMI) [Ratio] 35.29 kg/m2 Dean Gunter MD Work Phone: [facility] 02-01-2024 15:06-0400 Body temperature 98.1 [degF] Dean Gunter MD Work Phone: [facility] 02-01-2024 15:06-0400 Body weight 87.54 kg Dean Gunter MD Work Phone: [facility] 02-01-2024 15:06-0400 Diastolic blood pressure 60 mm[Hg] Dean Gunter MD Work Phone: [facility] 02-01-2024 15:06-0400 Heart rate 86 /min Dean Gunter MD Work Phone: [facility] 02-01-2024 15:06-0400 Respiratory rate 20 /min Dean Gunter MD Work Phone: [facility] 02-01-2024 15:06-0400 SaO2% (BldA) [Mass fraction] 92 % Dean Gunter MD Work Phone: [facility] 02-01-2024 15:06-0400 Systolic blood pressure 123 mm[Hg] Dean Gunter MD Work Phone: [facility] 01-14-2024 10:51-0400 Body height 157.5 cm Jyoti Wiggins MISSION WORKER Work Phone: [facility] 01-14-2024 10:51-0400 Body mass index (BMI) [Ratio] 35.48 kg/m2 Jyoti Wiggins MISSION WORKER Work Phone: [facility] 01-14-2024 10:51-0400 Body temperature 97.11 [degF] Jyoti Wiggins MISSION WORKER Work Phone: [facility] 01-14-2024 10:51-0400 Body weight 88 kg Jyoti Wiggins MISSION WORKER Work Phone: [facility] 01-14-2024 10:51-0400 Diastolic blood pressure 70 mm[Hg] Jyoti Wiggins MISSION WORKER Work Phone: [facility] 01-14-2024 10:51-0400 Heart rate 78 /min Jyoti Wiggins MISSION WORKER Work Phone: [facility] Comment on above: 94% O2 01-14-2024 10:51-0400 Systolic blood pressure 100 mm[Hg] Jyoti Wiggins MISSION WORKER Work Phone: [facility] 12-26-2023 13:17-0400 Diastolic blood pressure 64 mm[Hg] DO Susanne Tupa Work Phone: [facility] 12-26-2023 13:17-0400 Heart rate 70 /min DO Susanne Tupa Work Phone: [facility] 12-26-2023 13:17-0400 Inhaled oxygen flow rate 4 L/min DO Susanne Tupa Work Phone: [facility] 12-26-2023 13:17-0400 Respiratory rate 18 /min DO Susanne Tupa Work Phone: [facility] 12-26-2023 13:17-0400 SaO2% (BldA) [Mass fraction] 92 % DO Susanne Tupa Work Phone: [facility] 12-26-2023 13:17-0400 Systolic blood pressure 130 mm[Hg] DO Susanne Tupa Work Phone: [facility] 12-26-2023 09:31-0400 Body height 157.48 cm DO Susanne Tupa Work Phone: [facility] 12-26-2023 09:31-0400 Body temperature 98.3 [degF] DO Susanne Tupa Work Phone: [facility] 12-26-2023 09:31-0400 Body weight 94.1 kg DO Susanne Tupa Work Phone: [facility] 11-09-2023 12:02-0400 Diastolic blood pressure 74 mm[Hg] [facility]con [facility] 11-09-2023 12:02-0400 Heart rate 68 /min Bo Rincon MD Work Phone: [facility] 11-09-2023 12:02-0400 Respiratory rate 16 /min Bo Rincon MD Work Phone: [facility] [employer] [facility] 11-09-2023 12:02-0400 Systolic blood pressure 122 mm[Hg] Bo Rincon MD Work Phone: [facility] [employer] [facility] 11-06-2023 11:02-0400 Body height 157.5 cm Kayy Hines PA-C Work Phone: [facility] [employer] 11-06-2023 11:02-0400 Body mass index (BMI) [Ratio] 37.68 kg/m2 Kayy Hines PA-C Work Phone: [facility] [employer] 11-06-2023 11:02-0400 Body weight 93.44 kg Kayy Hines PA-C Work Phone: [facility] [employer] [facility] 11-06-2023 11:02-0400 Diastolic blood pressure 86 mm[Hg] Kayy Hines PA-C Work Phone: [facility] 11-06-2023 11:02-0400 Heart rate 79 /min Kayy Hines PA-C Work Phone: [facility] 11-06-2023 11:02-0400 Systolic blood pressure 150 mm[Hg] Kayy Hines PA-C Work Phone: [facility] [employer] [facility] 09-20-2023 09:52-0400 Body height 157.5 cm Dean Gunter MD Work Phone: [facility] [employer] [facility] 09-20-2023 09:52-0400 Body mass index (BMI) [Ratio] 38.14 kg/m2 Dean Gunter MD Work Phone: [facility] [employer] [facility] 09-20-2023 09:52-0400 Body temperature 97.7 [degF] Dean Gunter MD Work Phone: [facility] 09-20-2023 09:52-0400 Body weight 94.62 kg Dean Gunter MD Work Phone: [facility] [employer] [facility] 09-20-2023 09:52-0400 Diastolic blood pressure 71 mm[Hg] Dean Gunter MD Work Phone: [facility] 09-20-2023 09:52-0400 Heart rate 89 /min Dean Gunter MD Work Phone: [facility] 09-20-2023 09:52-0400 Respiratory rate 24 /min Dean Gunter MD Work Phone: [facility] 09-20-2023 09:52-0400 SaO2% (BldA) [Mass fraction] 93 % Dean Gunter MD Work Phone: [facility] 09-20-2023 09:52-0400 Systolic blood pressure 143 mm[Hg] Dean Gunter MD Work Phone: [facility] 08-01-2023 12:02-0500 Body height 157.5 cm Blanca Rosales MD Work Phone: [facility] 08-01-2023 12:02-0500 Body mass index (BMI) [Ratio] 42.06 kg/m2 Blanca Rosales MD Work Phone: [facility] 08-01-2023 12:02-0500 Body weight 104.33 kg Blanca Rosales MD Work Phone: [facility] 08-01-2023 12:02-0500 Diastolic blood pressure 67 mm[Hg] Blanca Rosales MD Work Phone: [facility] 08-01-2023 12:02-0500 Heart rate 92 /min Blanca Rosales MD Work Phone: [facility] 08-01-2023 12:02-0500 Systolic blood pressure 139 mm[Hg] Blanca Rosales MD Work Phone: [facility] 07-06-2023 13:55-0500 Body height 157.5 cm Kayy Hines PA-C Work Phone: [facility] 07-06-2023 13:55-0500 Body mass index (BMI) [Ratio] 37.13 kg/m2 Kayy Hines PA-C Work Phone: [facility] 07-06-2023 13:55-0500 Body weight 92.08 kg Kayy GARCIAC Work Phone: [facility] 07-06-2023 13:55-0500 Diastolic blood pressure 74 mm[Hg] Kayy ASHTON-C Work Phone: [facility] 07-06-2023 13:55-0500 Heart rate 68 /min Kayy ASHTON-C Work Phone: [facility] 07-06-2023 13:55-0500 Systolic blood pressure 128 mm[Hg] Kayy ASHTON-C Work Phone: [facility] 07-04-2023 09:26-0500 Body height 157.5 cm Shaikh Isela ACOSTA Work Phone: [facility] 07-04-2023 09:26-0500 Body mass index (BMI) [Ratio] 37.49 kg/m2 Shaikh Isela ACOSTA Work Phone: [facility] 07-04-2023 09:26-0500 Body temperature 97.2 [degF] Shaikh Isela ACOSTA Work Phone: [facility] 07-04-2023 09:26-0500 Body weight 92.99 kg Shaikh Isela ACOSTA Work Phone: [facility] 07-04-2023 09:26-0500 Diastolic blood pressure 60 mm[Hg] Shaikh Isela ACOSTA Work Phone: [facility] 07-04-2023 09:26-0500 Heart rate 71 /min Shaikh Isela ACOSTA Work Phone: [facility] 07-04-2023 09:26-0500 SaO2% (BldA) [Mass fraction] 93 % Shaikh Isela ACOSTA Work Phone: [facility] 07-04-2023 09:26-0500 Systolic blood pressure 100 mm[Hg] Shaikh Isela ACOSTA Work Phone: [facility] 06-25-2023 19:06-0500 Body temperature 97.39 [degF] Danie Chavez MD Work Phone: [facility] 06-25-2023 19:06-0500 Diastolic blood pressure 46 mm[Hg] Danie Chavez MD Work Phone: [facility] 06-25-2023 19:06-0500 Heart rate 56 /min Danie Chavez MD Work Phone: [facility] 06-25-2023 19:06-0500 Respiratory rate 18 /min Danie Chavez MD Work Phone: [facility] 06-25-2023 19:06-0500 SaO2% (BldA) [Mass fraction] 95 % Danie Chavez MD Work Phone: [facility] 06-25-2023 19:06-0500 Systolic blood pressure 114 mm[Hg] Danie Chavez MD Work Phone: [facility] 06-25-2023 04:19-0500 Body mass index (BMI) [Ratio] 39.88 kg/m2 Danie Chavez MD Work Phone: [facility] 06-25-2023 04:19-0500 Body weight 92.63 kg Danie Chavez MD Work Phone: [facility] 06-22-2023 00:55-0500 Body height 152.4 cm Danie Chavez MD Work Phone: [facility] Encounters Encounter Date Encounter Type Care Provider Facility Start: 01-27-2025 End: 01-27-2025 Telephone encounter Adeline Iqbal CMA [facility] Neurology, A Department of [facility] Comment on above: [facility] Paperwork Start: 01-19-2025 End: 01-19-2025 ambulatory PALAK SUTHERLAND [facility] Start: 01-16-2025 End: 01-16-2025 External Result Encounter George Hayden MD Work Phone: [facility] External Department Unsolicited Start: 01-16-2025 End: 01-16-2025 External Result Encounter George Hayden MD Work Phone: [facility] External Department Unsolicited Start: 01-16-2025 ambulatory GEORGE HAYDEN [facility] Start: 01-12-2025 End: 01-12-2025 Bamboo flowsheet George Hayden MD Work Phone: [facility] Start: 01-12-2025 End: 01-12-2025 Bamboo flowsheet George Hayden MD Work Phone: [facility] Start: 01-12-2025 End: 01-12-2025 Office outpatient visit 25 minutes George Hayden MD Work Phone: [facility] Comment on above: Type 2 diabetes rah itus with hyperglycemia, with long-term current use of insulin (HCC) (Primary Dx); Benign essential HTN ; Chronic obstructive pulmonary disease, unspecified COPD type ([facility]); Chronic heart failure with mildly reduced ejection fraction (HFmrEF, 41-49%) ([facility]); 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 ; Encounter for long-term (current) use of medications Start: 01-12-2025 End: 01-12-2025 ambulatory GEORGE HAYDEN Not Available Start: 12-23-2024 End: 12-23-2024 Bamboo flowsheet George Hayden MD Work Phone: [facility] Start: 12-23-2024 End: 12-23-2024 Bamboo flowsheet George Hayden MD Work Phone: [facility] Start: 12-23-2024 End: 12-23-2024 Transitional care manage srvc 7 day discharge George Hayden MD Work Phone: [facility] Comment on above: Chronic heart failur e with mildly reduced ejection fraction (HFmrEF, 41-49%) ([facility]) (Primary Dx); Chronic obstructive pulmonary disease, unspecified COPD type (HCC); Chronic respiratory failure with hypoxia (HCC); Type 2 diabetes mellitus with hyperglycemia, with long-term current use of insulin (HCC) Start: 12-23-2024 End: 12-23-2024 ambulatory GEORGE HAYDEN Not Available Start: 12-22-2024 End: 12-22-2024 ambulatory MIGUEL GOMEZ [facility] Start: 12-10-2024 ambulatory [facility] Start: 12-08-2024 End: 12-12-2024 Evaluation and management of inpatient FRANCISCA GIBBS [facility] Start: 12-06-2024 End: 12-08-2024 Evaluation and management of inpatient Emiliano Pitts MD Work Phone: [facility] Comment on above: COPD exacerbation (C MS-HCC) (Primary Dx); Hypoxia; Exertional dyspnea; Acute on chronic congestive heart failure, unspecified heart failure type (CMS-HCC); Pleural effusion; Hypomagnesemia; Hypokalemia Start: 12-05-2024 End: 12-05-2024 Telephone encounter Luana Mandel [facility] Neurology, A Department of [facility] Comment on above: directions Start: 12-05-2024 End: 12-05-2024 Office outpatient visit 25 minutes Kayy Hines PA-C Work Phone: [facility] [place] Comment on above: Unsteady gait (Prima ry Dx); Peripheral polyneuropathy; Intention tremor; Vitamin B12 deficiency Start: 12-05-2024 End: 12-05-2024 ambulatory KAYY HINES [facility] Start: 12-01-2024 End: 12-01-2024 Telephone encounter George Hayden MD Work Phone: [facility] Comment on above: Med Refill Start: 11-20-2024 End: 11-20-2024 [facility] Start: 11-20-2024 End: 11-20-2024 ambulatory [facility] Start: 11-07-2024 End: 11-07-2024 ambulatory PALAK SUTHERLAND [facility] Start: 11-05-2024 End: 11-05-2024 Office outpatient visit 25 minutes George Hayden MD Work Phone: [facility] Comment on above: Type 2 diabetes rah itus with hyperglycemia, with long-term current use of insulin (CMS/HCC) (Primary Dx); Type 2 diabetes mellitus with diabetic neuropathy, with long-term current use of insulin ([facility]/HCC); Benign essential HTN ([facility]/HCC); Chronic obstructive pulmonary disease, unspecified COPD type ([facility]/HCC); Chronic diastolic HF (heart failure) ([facility]/HCC); Multiple sclerosis ([facility]/HCC); Hypothyroidism, unspecified type ([facility]/HCC); Chronic respiratory failure with hypoxia ([facility]/HCC); Severe pulmonary hypertension ([facility]/HCC); Stage 3b chronic kidney disease (HCC) ([facility]/HCC); Hypertensive heart disease with heart failure ([facility]/HCC); Gastro-esophageal reflux disease without esophagitis; Type 2 diabetes mellitus with diabetic chronic kidney disease ([facility]/HCC) Start: 11-05-2024 End: 11-05-2024 ambulatory GEORGE HAYDEN Not Available Start: 2024 End: 11-02-2024 Refill Kayy Hines PA-C Work Phone: [facility] Comment on above: Diabetic peripheral neuropathy ([facility]-HCC); Paresthesias in right hand Start: 09-15-2024 End: 09-16-2024 Refill George Hayden MD Work Phone: [facility] Comment on above: Restless legs syndro me Start: 09-12-2024 End: 09-12-2024 Telephone encounter Adeline Iqbal CMA [facility] Neurology, A Department of [facility] Comment on above: Med Records Start: 09-05-2024 End: 09-05-2024 Office outpatient visit 25 minutes Kayy Hines PA-C Work Phone: [facility] [place] Comment on above: Peripheral polyneuro jayla (Primary Dx); Intention tremor Start: 09-05-2024 End: 09-05-2024 ambulatory KAYY HINES [facility] Start: 08-27-2024 End: 08-27-2024 Refill Sebastian Chau APRN-BODY STRAIGHTENER Work Phone: Chayito Camejo [facility] - Medical Oncology Comment on above: Age-related osteopor osis without current pathological fracture Start: 08-25-2024 End: 08-25-2024 Orders Only George Hayden MD Work Phone: [facility] Comment on above: Urinary tract infect ion without hematuria, site unspecified (Primary Dx) Start: 08-12-2024 End: 08-13-2024 Refill Hue Oglesby [facility] - Neurophysiology Comment on above: Peripheral polyneuro jayla (Primary Dx) Start: 08-10-2024 End: 08-11-2024 Refill Jhoana Pierre MD Work Phone: [facility] ENDOCRIN[facility] Comment on above: Type 2 diabetes rah itus with hyperglycemia, with long-term current use of insulin ([facility]) Start: 07-31-2024 End: 07-31-2024 ambulatory [facility] Start: 07-10-2024 End: 07-10-2024 Orders Only Jyoti Wiggins NP Work Phone: [facility] Comment on above: Type 2 diabetes rah itus with diabetic polyneuropathy, with long-term current use of insulin (CMS/HCC) (Primary Dx) Start: 07-07-2024 End: 07-07-2024 Orders Only Jyoti Wiggins MISSION WORKER Work Phone: [facility] M Comment on above: Gastroesophageal ref lux disease, unspecified whether esophagitis present (Primary Dx) Start: 06-25-2024 End: 06-25-2024 Office outpatient visit 15 minutes Jyoti Wiggins NP Work Phone: [facility] Comment on above: Coronary artery dise ase involving bad river band coronary artery 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 angina pectoris (CMS/HCC) (Primary Dx); Type 2 diabetes mellitus with diabetic neuropathy, with long-term current use of insulin (CMS/[facility]); Benign essential HTN (CMS/HCC); Stage 3a chronic kidney disease (HCC) ([facility]/HCC) Start: 06-25-2024 End: 06-25-2024 ambulatory JYOTI WIGGINS Not Available Start: 06-25-2024 End: 06-25-2024 Bamboo flowsheet Jyoti Wiggins MISSION WORKER Work Phone: [facility] Start: 06-25-2024 End: 06-25-2024 Bamboo flowsheet Jyoti Wiggins MISSION WORKER Work Phone: [facility] Start: 06-04-2024 End: 06-04-2024 ambulatory DEAN GUNTER [facility] Start: 06-02-2024 End: 06-02-2024 Office outpatient visit 40 minutes Sebastianbenja Ramosall LATRELL-BODY STRAIGHTENER Work Phone: Chayito L [facility] - Medical Oncology Comment on above: Age-related osteopor osis without current pathological fracture (Primary Dx); 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, estrogen receptor positive ([facility]-HCC); Metastatic cancer to axillary lymph nodes ([facility]-HCC); High risk medication use; Personal history of malignant neoplasm of breast; Aromatase inhibitor use; Osteoporosis due to aromatase inhibitor Start: 06-02-2024 End: 06-02-2024 ambulatory SEBASTIAN Enrique [facility] Start: 05-05-2024 End: 05-05-2024 Refill Jessica Iyer MA [facility] Comment on above: Stage 3a chronic kid jackie disease (HCC) ([facility]/HCC) Start: 05-04-2024 End: 05-04-2024 Refill Kayy Hines PA-C Work Phone: [facility] Comment on above: Diabetic peripheral neuropathy ([facility]-HCC); Paresthesias in right hand Start: 05-01-2024 End: 05-01-2024 ambulatory [facility] Start: 04-29-2024 End: 04-29-2024 Refill Jessica Iyer MA [facility] Comment on above: Restless legs syndro me Start: 04-28-2024 End: 04-28-2024 ambulatory EHAB [facility] Start: 04-17-2024 End: 04-17-2024 Orders Only Jyoti Rosalie MISSION WORKER Work Phone: [facility] Comment on above: Type 2 diabetes rah itus with diabetic polyneuropathy, with long-term current use of insulin (CMS/HCC) (Primary Dx) Start: 03-29-2024 End: 03-31-2024 Refill Jyoti Wiggins MISSION WORKER Work Phone: [facility] FM Comment on above: Gastroesophageal ref lux disease, unspecified whether esophagitis present Start: 03-12-2024 End: 03-12-2024 Bamboo flowsheet Jhoana Pierre MD Work Phone: [facility] Start: 03-12-2024 End: 03-12-2024 Bamvikash flowsjanak Pierre MD Work Phone: [facility] Start: 03-12-2024 End: 03-12-2024 Office outpatient new 45 minutes Jhoana Pierre MD Work Phone: [facility] Comment on above: Type 2 diabetes rah itus with hyperglycemia, with long-term current use of insulin (CMS/HCC) (Primary Dx); Insulin long-term use (CMS/HCC); Stage 3a chronic kidney disease (HCC) (CMS/HCC); Primary hypertension (CMS/HCC); Vitamin D deficiency; Hyperlipemia, mixed (CMS/HCC); Encounter for dietary consultation; Acquired hypothyroidism (CMS/HCC) Start: 03-12-2024 End: 03-12-2024 ambulatory JHOANA PIERRE Not Available Start: 03-07-2024 End: 03-07-2024 Office outpatient visit 25 minutes Kayy Hines PA-C Work Phone: [facility] Comment on above: Peripheral polyneuro jayla (Primary Dx); Unsteady gait; Vitamin B12 deficiency; Vitamin B6 deficiency; Paresthesias in right hand; Carpal tunnel syndrome of right wrist; Ulnar neuropathy of right upper extremity Start: 03-07-2024 End: 03-07-2024 ambulatory KAYY Raul HINES [facility] Start: 03-06-2024 End: 03-06-2024 Bamboo flowsheet Jyoti Tuckerpatrick MISSION WORKER Work Phone: [facility] Start: 03-06-2024 End: 03-06-2024 Bamboo flowsheet Jyoti Wiggins MISSION WORKER Work Phone: [facility] Start: 03-06-2024 End: 03-06-2024 Patient encounter procedure Jyoti Wiggins MISSION WORKER Work Phone: [facility] Comment on above: Gastroesophageal ref lux disease, unspecified whether esophagitis present (Primary Dx); Need for influenza vaccination Start: 03-06-2024 End: 03-06-2024 ambulatory JYOTI WIGGINS Not Available Start: 02-21-2024 End: 02-21-2024 ambulatory [facility] Start: 02-05-2024 End: 02-05-2024 Bamboo flowsheet Jeremiah Finch RN [facility] Start: 02-05-2024 End: 02-05-2024 Bamboo flowsheet Jeremiah Finch RN [facility] Start: 02-05-2024 End: 02-05-2024 ambulatory JEREMIAH FINCH Not Available Start: 02-01-2024 End: 02-01-2024 Office outpatient visit 25 minutes Dean Gunter MD Work Phone: [facility] Camejo [facility] - Medical Oncology Comment on above: Malignant neoplasm o f nipple of right breast in female, estrogen receptor positive (CMS-HCC) (Primary Dx); 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); Pleural effusion Start: 02-01-2024 End: 02-01-2024 Orders Only [facility] Comment on above: Malignant neoplasm o f nipple of right breast in female, estrogen receptor positive (CMS-HCC) (Primary Dx); Pleural effusion on right; 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) Start: 01-17-2024 End: 01-17-2024 ambulatory [facility] Start: 01-15-2024 End: 01-15-2024 Clinisync Result Encounter Generic External Data Provider [facility] External Department Unsolicited Start: 01-15-2024 End: 01-15-2024 Clinisync Result Encounter Generic External Data Provider [facility] External Department Unsolicited Start: 01-14-2024 End: 01-14-2024 Office outpatient visit 15 minutes Jyoti Wiggins NP Work Phone: [facility] Comment on above: Type 2 diabetes rah itus with diabetic neuropathy, with long- term current use of insulin (CMS/HCC) (Primary Dx) Start: 01-14-2024 End: 01-14-2024 ambulatory JYOTI WIGGINS Not Available Start: 12-26-2023 End: 12-26-2023 Orders [facility] Comment on above: Malignant neoplasm o f nipple of right breast in female, estrogen receptor positive (CMS-HCC) (Primary Dx); Pleural effusion on right Start: 12-26-2023 End: 12-29-2023 Evaluation and management of inpatient DO Susanne Cannon Work Phone: [facility] Work Phone: Start: 11-19-2023 End: 11-20-2023 Telephone encounter Vicky Cas[facility] Comment on above: [facility] APPROVAL [facility]OTOX Start: 11-09-2023 End: 11-09-2023 Office outpatient visit 15 minutes Bo Rincon MD Work Phone: [facility] Comment on above: Malignant neoplasm o f nipple of right breast in female, estrogen receptor positive (CMS-HCC) (Primary Dx); 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); Status post right mastectomy; History of cancer of left breast; Port-A-Cath in place; Encounter for screening mammogram for breast cancer Start: 11-09-2023 End: 11-09-2023 ambulatory BO RINCON [facility] Start: 11-06-2023 End: 11-06-2023 Office outpatient visit 25 minutes Kayy Hines PA-C Work Phone: [facility] Comment on above: Diabetic peripheral neuropathy (CMS-HCC) (Primary Dx); Paresthesias in right hand; Cervical dystonia Start: 09-20-2023 End: 09-20-2023 Orders Only Aniya Murcia [facility] - Medical Oncology Comment on above: Port-A-Cath in place (Primary Dx); 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) Start: 09-20-2023 End: 09-20-2023 Office outpatient visit 25 minutes Dean Gunter MD Work Phone: Chayito Camejo [facility] Medical Oncology Comment on above: Malignant neoplasm o f nipple of right breast in female, estrogen receptor positive (CMS-HCC) (Primary Dx); 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); Normocytic anemia Start: 09-18-2023 End: 09-18-2023 ambulatory Pfo Infusion Chair 1 Chayito Camejo [facility] Medical Oncology Comment on above: 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) (Primary Dx); 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, estrogen receptor positive (CMS-HCC) Start: 08-15-2023 Telephone encounter Regina Mullen [facility] Neu[facility] Comment on above: need office notes Start: 08-08-2023 End: 08-08-2023 ambulatory Pfo Infusion Chair 1 Chayito Milligan [facility] Medical Oncology Comment on above: Metastatic cancer to axillary lymph nodes ([facility]-HCC) (Primary Dx) Start: 08-03-2023 Telephone encounter Blanca gamboa MD Work Phone: [facility] Start: 08-01-2023 End: 08-01-2023 Office outpatient visit 25 minutes Blanca Rosales MD Work Phone: [facility] Comment on above: Cervical dystonia (P rimary Dx); Torsion dystonia; Myofascial pain; Essential tremor Start: 07-24-2023 Telephone encounter Adeline Iqbal CMA [facility] Start: 07-22-2023 Velvet Gunter MD Work Phone: Chayito Milligan [facility] - Medical Oncology Start: 07-13-2023 Telephone encounter Celsa Lackey [facility] Start: 07-10-2023 Telephone encounter Argenis Cobian [facility] Comment on above: emg order fax Start: 07-09-2023 Orders Only Shaikh Isela ACOSTA Work Phone: [facility] Comment on above: Stage 3a chronic kid jackie disease (HCC) (CMS/HCC) Benign essential HTN (CMS/HCC) Start: 07-06-2023 End: 07-06-2023 Office outpatient visit 25 minutes Rodolfo Avila MD Work Phone: [facility] Comment on above: Diabetic peripheral neuropathy (CMS-HCC) (Primary Dx); Vitamin B12 deficiency; Vitamin B6 deficiency; Ulnar neuropathy at elbow of right upper extremity; Torticollis Start: 07-06-2023 Telephone encounter Vicky Trevizo [facility] Comment on above: BOTOX INJECTIONS Start: 07-04-2023 Bamboo flowsheet Shaikh Isela ACOSTA [...] 2 diabetes mellitus with diabetic neuropathy, unspecified (CMS/HCC); Ventricular bigeminy seen on casework specialist; Coronary artery disease involving bad river band coronary artery 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 angina pectoris (CMS/HCC); Chronic diastolic HF (heart failure) (CMS/HCC) Start: 06-28-2023 End: 06-28-2023 ambulatory Pfo Infusion Chair 1 Chayito Camejo [facility] - Medical Oncology Comment on above: 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) (Primary Dx) Start: 06-21-2023 End: 06-25-2023 Evaluation and management of inpatient Emiliano Perez MD Work Phone: [facility] Comment on above: Hypoxia (Primary Dx) ; Pleural effusion; Chronic obstructive pulmonary disease, unspecified COPD type (CMS-HCC) Start: 06-20-2023 Telephone encounter Deysi Garrett [facility] Comment on above: reschd 06/22/23 appt Start: 05-10-2023 Patient encounter procedure Shaikh Isela ACOSTA Work Phone: [facility] Start: 03-28-2022 End: 03-29-2022 ambulatory MARTINEZ H FAWWAD Facility:[facility]1 Start: 02-27-2022 End: 02-28-2022 ambulatory MARTINEZ H FAWWAD Facility:[facility] Start: 02-20-2022 End: 02-21-2022 ambulatory MARTINEZ H FAWWAD Facility:[facility] Start: 02-07-2022 End: 02-08-2022 ambulatory MARTINEZ H FAWWAD Facility:[facility] Start: 11-14-2021 End: 11-15-2021 ambulatory MARTINEZ H FAWWAD Facility:[facility] Start: 10-07-2021 End: 10-08-2021 ambulatory MARTINEZ H FAWWAD Facility:[facility] Start: 09-20-2021 End: 09-21-2021 ambulatory MARTINZE H FAWWAD Facility:[facility] Start: 08-22-2021 End: 08-23-2021 ambulatory MARTINEZ H FAWWAD Facility:[facility] Start: 05-27-2021 End: 05-28-2021 ambulatory MARTINEZ H FAWWAD Facility:[facility] Start: 05-04-2021 End: 05-04-2021 ambulatory MARTINEZ H FAWWAD Facility:[facility] Start: 04-28-2021 End: 04-29-2021 ambulatory MARTINEZ H FAWWAD Facility: Start: 07-11-2019 End: 07-12-2019 Patient encounter procedure PAUL MARTINEZ Facility:[facility] Procedures Date Procedure Procedure Detail Performing Clinician Start: 01-16-2025 Complete blood count with white cell differential, automated George Hayden MD Work Phone: Start: 12-08-2024 BEDSIDE GLUCOSE Miguel Gomez MD Work Phone: Start: 12-08-2024 Echo tthrc r-t 2d w/wom-mode compl spec&colr d Paula Lackey PASTEURIZER-BODY STRAIGHTENER Work Phone: Start: 12-08-2024 BEDSIDE GLUCOSE Miguel Gomez MD Work Phone: Start: 12-08-2024 Comprehensive metabo lic panel Carmen Lopez PASTEURIZER-BODY STRAIGHTENER Work Phone: Start: 12-08-2024 EXTRA TUBES Miguel Gomez MD Work Phone: Start: 12-08-2024 EXTRA TUBES BLUE TOP Howie Gomez MD Work Phone: Start: 12-08-2024 Urnls dip stick/tabl et reagent auto microscopy Paula Lackey PASTEURIZER-BODY STRAIGHTENER Work Phone: Start: 12-07-2024 BEDSIDE GLUCOSE Danie Chavez MD Work Phone: Start: 12-07-2024 BEDSIDE GLUCOSE Danie Chavez MD Work Phone: Start: 12-07-2024 RESP PATHOGENS PANEL/SARS-COV-2 Paula Lackey PASTEURIZER-BODY STRAIGHTENER Work Phone: Start: 12-07-2024 BEDSIDE GLUCOSE Danie Chavez MD Work Phone: Start: 12-07-2024 Radiologic exam ches t single view Danie Chavez MD Work Phone: Start: 12-07-2024 Comprehensive metabo lic panel Carmen Lopez PASTEURIZER-BODY STRAIGHTENER Work Phone: Start: 12-07-2024 EXTRA TUBES Danie jimenez MD Work Phone: Start: 12-07-2024 EXTRA TUBES BLUE TOP Ka tamiko Chavez MD Work Phone: Start: 12-07-2024 Assay of lactate Emiliano Pitts MD Work Phone: Start: 12-06-2024 Blood gases any comb ination ph pco2 po2 co2 hco3 Emiliano Pitts MD Work Phone: Start: 12-06-2024 Radiologic exam ches t single view Emiliano Pitts MD Work Phone: Start: 12-06-2024 End: 12-06-2024 Basic metabolic panel calcium total Emiliano Pitts MD Work Phone: Start: 12-06-2024 RESP PATHOGENS PANEL/SARS-COV-2 Emiliano Pitts MD Work Phone: Start: 12-06-2024 SARS/FLU A+B/RSV BY NAAT/MOLECULAR (M4RT COLLECTION TUBE) Emiliano Pitts MD Work Phone: Start: 12-06-2024 Ecg routine ecg w/le ast 12 lds trcg only w/o i&r Emiliano Pitts MD Work Phone: Start: 12-05-2024 Adult depression scr eening assessment Kayy Hines PA-C Work Phone: Start: 09-05-2024 Follow-up visit Follow-up KAYY HINES Start: 03-12-2024 Gluc bld gluc mntr d ev cleared fda spec home use Jhoana Pierre MD Work Phone: Start: 02-01-2024 Follow-up visit Follow-up DEAN GUNTER Start: 01-15-2024 ALL BASIC METABOLIC PANEL Generic External Data Provider Start: 12-26-2023 SARS-CoV-2, Influenz a & RSV (PCR) DO Susanne Cannon Work Phone: Start: 12-26-2023 Plain chest X-ray DO Angel Cannon Work Phone: Start: 11-09-2023 Follow-up visit Follow-up BO COONYVONNE Start: 09-18-2023 Comprehensive metabo lic panel Dean Gunter MD Work Phone: Start: 08-01-2023 Adult depression scr eening assessment Blanca Rosales MD Work Phone: Start: 06-25-2023 HOME O2 EVALUATION Mauro Toney PASTEURIZER-BODY STRAIGHTENER Work Phone: Start: 06-25-2023 Gluc bld gluc mntr d ev cleared fda spec home use Yousuf Garcia MD Work Phone: Start: 06-24-2023 Basic metabolic pane l calcium total Yousuf Garcia MD Work Phone: Start: 06-24-2023 Gluc bld gluc mntr d ev cleared fda spec home use Yousuf Garcia MD Work Phone: Start: 06-24-2023 Basic metabolic pane l calcium total Treva Rgge PASTEURIZER-BODY STRAIGHTENER Work Phone: Start: 06-23-2023 Assay of magnesium Yousuf Garcia MD Work Phone: Start: 06-23-2023 Gluc bld gluc mntr d ev cleared fda spec home use Yousuf Garcia MD Work Phone: Start: 06-23-2023 Gluc bld gluc mntr d ev cleared fda spec home use Yousuf Garcia MD Work Phone: Start: 06-23-2023 Gluc bld gluc mntr d ev cleared fda spec home use Yousuf Garcia MD Work Phone: Start: 06-23-2023 Basic metabolic pane l calcium total Treva Gomez PASTEURIZER-BODY STRAIGHTENER Work Phone: Start: 06-22-2023 Gluc bld gluc mntr d ev cleared fda spec home use Yousuf Garcia MD Work Phone: Start: 06-22-2023 Echo tthrc r-t 2d w/wom-mode compl spec&colr d Mauro Toney PASTEURIZER-BODY STRAIGHTENER Work Phone: Start: 06-22-2023 Basic metabolic pane l calcium total Yousuf Garcia MD Work Phone: Start: 06-22-2023 Gluc bld gluc mntr d ev cleared fda spec home use Yousuf Garcia MD Work Phone: Start: 06-22-2023 Assay of magnesium Paulette Gomez PASTEURIZER-BODY STRAIGHTENER Work Phone: Start: 06-22-2023 DIFFERENTIAL ADD ON USE ONLY Treva Gomez PASTEURIZER-BODY STRAIGHTENER Work Phone: Start: 06-22-2023 Ecg routine ecg w/le ast 12 lds trcg only w/o i&r Treva Gomez PASTEURIZER-BODY STRAIGHTENER Work Phone: Start: 06-21-2023 SARS/FLU A+B/RSV BY NAAT/MOLECULAR (M4RT COLLECTION TUBE) Emiliano Perez MD Work Phone: Start: 06-21-2023 Radiologic exam ches t single view Emiliano Perez MD Work Phone: Start: 06-21-2023 Comprehensive metabo lic panel Emiliano Perez MD Work Phone: Start: 06-21-2023 Ecg routine ecg w/le ast 12 lds trcg only w/o i&r Emiliano Perez MD Work Phone: Start: 01-13-2021 Colonoscopy Deysi Landa viar Plan of Treatment Date Care Activity Detail Author Start: 01-13-2026 Screening for malignant neoplasm of colon Colonoscopy [facility] Start: 12-06-2025 Tobacco Screening Tobacco Screening [facility] [employer] [facility] Start: 12-05-2025 Depression Screening Depression Screening [facility] [employer] [facility] Start: 12-05-2025 Tobacco Screening Tobacco Screening [facility] Start: 10-13-2025 Glaucoma screening Diabetes: Retinopathy Screening [facility] Start: 09-05-2025 Tobacco Screening Tobacco [facility]ening [facility] Start: 08-19-2025 Urine screening for protein Diabetes: Urine Protein Screening [facility] Start: 06-13-2025 Hemoglobin A1c measurement Diabetes: Hemoglobin A1C [facility] Start: 06-09-2025 End: 06-09-2025 Patient encounter procedure 06/09/2025 9:00 AM EST Office Visit [facility] [place] [address] [place] [phone] Kayy Hines PA-C [address], [address] [place] [phone] [facility] [place] Start: 03-09-2025 End: 03-09-2025 Patient encounter procedure 03/09/2025 10:00 AM EDT Office Visit [facility] [address] [place] [address] George Hayden MD [address] [place] [address] [facility] Start: 03-07-2025 Adult BMI Screening Adult [facility] Start: 03-07-2025 Tobacco Screening Tobacco [facility]ening [facility] Start: 03-06-2025 Medicare Annual Wellness (AWV) Medicare Annual Wellness (AWV) [facility] Start: 02-19-2025 Hemoglobin A1c measurement Diabetes: Hemoglobin A1C [facility] Start: 02-19-2025 End: 02-19-2025 Patient encounter procedure 02/19/2025 9:45 AM EDT Appointment [facility] Neuro[facility]iology [address] [place] [address] [facility] Start: 02-10-2025 Glaucoma screening Diabetes: Retinopathy Screening [facility] Start: 02-05-2025 Urine screening for protein Diabetes: Urine Protein Screening [facility] Start: 01-31-2025 Adult BMI Screening Adult BMI Screening [facility] Start: 01-26-2025 COVID-19 Vaccine (8 - Pfizer risk season) COVID-19 Vaccine (8 - Pfizer risk season) [facility] Start: 01-26-2025 Influenza vaccination [facility] Start: 01-21-2025 End: 01-21-2025 Patient encounter procedure 01/21/2025 10:00 AM EDT Office Visit [facility] [address] [place] [address] [address] [place] [address] Tia Hardy, PASTEURIZER-BODY STRAIGHTENER [address] [place] [address], [address] [place] [address] [facility] Start: 01-12-2025 End: 01-12-2026 Basic metabolic 1998 panel - Serum or Plasma Basic metabolic panel Lab Routine Benign essential HTN Expected: 01/12/2025 (Approximate), Expires: 01/12/2026 [facility] Work Phone: Comment on above: Expected: 01/12/2025 (Approximate), Expi res: 01/12/2026 Start: 01-12-2025 End: 01-12-2026 CBC W Auto Differential panel - Blood CBC and differential Lab Routine Encounter for long-term (current) use of medications Expected: 01/12/2025 (Approximate), Expires: 01/12/2026 [facility] Comment on above: Expected: 01/12/2025 (Approximate), Expi res: 01/12/2026 Start: 01-12-2025 End: 01-12-2026 Thyrotropin [Units/volume] in Serum or Plasma TSH Lab Routine 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 Expected: 01/12/2025 (Approximate), Expires: 01/12/2026 [facility] Comment on above: Expected: 01/12/2025 (Approximate), Expi res: 01/12/2026 Start: 01-12-2025 End: 08-18-2026 Thyroxine (T4) free [Mass/volume] in Serum or Plasma T4, free Lab Routine 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 Expected: 01/12/2025 (Approximate), Expires: 01/12/2026 [facility] Comment on above: Expected: 01/12/2025 (Approximate), Expi res: 01/12/2026 Start: 01-12-2025 End: 01-12-2025 Patient encounter procedure 01/12/2025 11:15 AM EDT Office Visit [facility] [address] [place] [address] George Hayden MD [address] [place] [phone] Arrived [facility] Comment on above: Arrived Start: 12-26-2024 Glaucoma screening Diabetes: Retinopathy Screening [facility] Start: 12-23-2024 End: 12-23-2024 Patient encounter procedure 12/23/2024 11:45 AM EDT Office Visit [facility] [address] [place] [address] George Hayden MD [address] [place] [phone] Arrived [facility] Comment on above: Arrived Start: 12-05-2024 End: 12-05-2024 Patient encounter procedure 12/05/2024 9:00 AM EDT [facility] [place] [address] Kayy Hines, INDRA [address], [address] [place] [phone] [facility] [place] Start: 11-20-2024 End: 11-20-2024 Patient encounter procedure [facility] Start: 11-11-2024 Adult BMI Screening Adult BMI Screening [facility] Start: 11-11-2024 Tobacco Screening Tobacco Screening [facility] Start: 11-06-2024 End: 11-06-2024 Patient encounter procedure 11/06/2024 1:15 PM EDT Appointment [facility] [address] [facility] [address] [place] [address] [facility] Start: 11-05-2024 Adult BMI Screening Adult BMI Screening [facility] Start: 2024 End: 05-27-2025 MG Breast - left Screening Mammography screening unilateral left with CAD Imaging Routine 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, estrogen receptor positive (CMS-HCC) 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 History of cancer of left breast Encounter for screening mammogram for breast cancer Expected: 2024 (Approximate), Expires: 05/27/2025 [facility] Comment on above: Expected: 2024 (Approximate), Expi res: 05/27/2025 Start: 10-22-2024 End: 10-22-2024 Patient encounter procedure 10/22/2024 10:30 AM EDT Office Visit [facility] [address] [place] [address] George Hayden MD [address] [place] [address] [facility] Start: 10-18-2024 Tobacco Screening Tobacco Screening [facility] Start: 10-08-2024 End: 10-08-2024 Patient encounter procedure [facility] Start: 09-19-2024 Adult BMI Screening Adult BMI Screening [facility] Start: 09-11-2024 COVID-19 Vaccine (8 - Pfizer risk season) COVID-19 Vaccine (8 - Pfizer risk ) [facility] Start: 09-05-2024 End: 09-05-2024 Patient encounter procedure [facility] Start: 07-31-2024 Adult BMI Screening Adult BMI Screening [facility] Start: 07-31-2024 Depression Screening Depression Screening [facility] [employer] [facility] Start: 07-31-2024 Tobacco Screening Tobacco Screening [facility] [employer] [facility] Start: 07-31-2024 End: 07-31-2024 Patient encounter procedure 07/31/2024 1:30 PM EST Appointment [facility] [address] [place] [address] [facility] Start: 07-25-2024 End: 02-27-2025 MR Breast - bilateral WO and W contrast IV MR bilateral breast with and without contrast with CAD Imaging Routine 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, estrogen receptor positive (CMS-HCC) 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 History of cancer of left breast Expected: 07/25/2024 (Approximate), Expires: 02/27/2025 [facility] Work Phone: Comment on above: Expected: 07/25/2024 (Approximate), Expi res: 02/27/2025 Start: 07-09-2024 Adult BMI Screening Adult BMI Screening [facility] [employer] Start: 07-09-2024 End: 07-09-2024 Patient encounter procedure 07/09/2024 8:30 AM EST Office Visit [facility] [address] [place] [phone] Jyoti Wiggins NP [address] [place] [address] [facility] Start: 07-06-2024 Tobacco Screening Tobacco Screening [facility] [employer] Start: 06-25-2024 End: 06-25-2024 Patient encounter procedure 06/25/2024 2:30 PM EST Office Visit [facility] [address] [place] [phone] Jyoti Wiggins, MISSION WORKER [address] [place] [address] Type 2 diabetes mellitus with diabetic neuropathy, with long-term current use of insulin (CMS/HCC) [facility] Comment on above: Type 2 diabetes mellitus with diabetic n europathy, with long-term current use of insulin (CMS/HCC) Start: 06-25-2024 Adult BMI Screening Adult BMI Screening [facility] Start: 06-22-2024 Tobacco Screening Tobacco Screening [facility] Start: 06-17-2024 End: 06-17-2024 Patient encounter procedure 06/17/2024 10:30 AM EST Office Visit [facility] END[facility] [address] [place] [address] Jhoana Pierre MD [address] [place] [address] [facility] Start: 06-12-2024 Hemoglobin A1c measurement Diabetes: Hemoglobin A1C [facility] Start: 06-10-2024 End: 06-10-2024 Patient encounter procedure 06/10/2024 2:00 PM EST Office Visit [facility] [address] [place] [phone] Jyoti Wiggins, OANH [address] [place] [phone] [facility] Start: 06-06-2024 End: 06-06-2024 Patient encounter procedure 06/06/2024 2:15 PM EST Office Visit [facility] Milligan [facility] - Medical Oncology [address] [place] [address] Dean Gunter MD [address] [facility] [address] [place] [address] Chayito Camejo [facility] - Medical Oncology Start: 06-04-2024 Subsequent hospital visit by physician 06/04/2024 11:00 AM EST Hospital Encounter [facility] - [facility] Imaging [address] [place] [address] Dean Gunter MD [address] [facility] [address] [place] [address] [facility] - CT Imaging Start: 05-19-2024 End: 01-31-2025 CBC W Auto Differential panel - Blood CBC auto differential Lab Routine 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, estrogen receptor positive (CMS-HCC) Pleural effusion on right 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) Expected: 05/19/2024, Expires: 01/31/2025 [facility] [employer] Comment on above: Expected: 05/19/2024, Expires: Start: 05-19-2024 End: 01-31-2025 Comprehensive metabolic 2000 panel - Serum or Plasma Comprehensive metabolic panel Lab Routine 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, estrogen receptor positive (CMS-HCC) Pleural effusion on right 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) Expected: 05/19/2024, Expires: 01/31/2025 [facility] [employer] Comment on above: Expected: 05/19/2024, Expires: Start: 05-19-2024 End: 01-31-2025 CT Chest limited W contrast IV CT chest with contrast Imaging Routine 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, estrogen receptor positive (CMS-HCC) Pleural effusion on right 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) Expected: 05/19/2024, Expires: 01/31/2025 [employer] Work Phone: Comment on above: Expected: 05/19/2024, Expires: Start: 05-10-2024 Medicare Annual Wellness (AWV) Medicare Annual Wellness (AWV) [facility] Start: 05-08-2024 COVID-19 Vaccine ( season) COVID-19 Vaccine ( season) [facility] Start: 05-01-2024 End: 05-01-2024 Patient encounter procedure 05/01/2024 2:00 PM EST Appointment [facility] Neuro[facility]iology [address] [place] [address] [facility] Start: 03-27-2024 End: 03-27-2024 Patient encounter procedure 03/27/2024 10:00 AM EDT Office Visit Chayito Camejo [facility] - Medical Oncology [address] [place] [phone] Dean Gunter MD [facility] [address] [place], [place] [phone] Chayito Camejo [facility] - Medical Oncology Start: 03-26-2024 Hemoglobin A1c measurement Diabetes: Hemoglobin A1C [facility] Start: 03-22-2024 Adult BMI Screening Adult BMI Screening [facility] [employer] [facility] Start: 03-21-2024 End: 09-19-2024 CBC W Auto Differential panel - Blood CBC auto differential Lab Routine Metastatic cancer to axillary lymph nodes ([facility]-HCC) Expected: 03/21/2024 (Approximate), Expires: 09/19/2024 [employer] Work Phone: Comment on above: Expected: 03/21/2024 (Approximate), Expi res: 09/19/2024 Start: 03-21-2024 End: 09-19-2024 Comprehensive metabolic 2000 panel - Serum or Plasma Comprehensive metabolic panel Lab Routine 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) Expected: 03/21/2024 (Approximate), Expires: 09/19/2024 [facility] [employer] [facility] Comment on above: Expected: 03/21/2024 (Approximate), Expi res: 09/19/2024 Start: 03-21-2024 Tobacco Screening Tobacco Screening [facility] Start: 03-12-2024 End: 03-12-2025 25-hydroxyvitamin D3 [Mass/volume] in Serum or Plasma Vitamin D 25 hydroxy Total Lab Routine Type 2 diabetes mellitus with hyperglycemia, with long-term current use of insulin ([facility]/HCC) Expected: 03/12/2024 (Approximate), Expires: 03/12/2025 [facility] Comment on above: Expected: 03/12/2024 (Approximate), Expi res: 03/12/2025 Start: 03-12-2024 End: 03-12-2025 C-peptide C-peptide Lab Routine Type 2 diabetes mellitus with hyperglycemia, with long-term current use of insulin ([facility]/HCC) Expected: 03/12/2024 (Approximate), Expires: 03/12/2025 [facility] Work Phone: Comment on above: Expected: 03/12/2024 (Approximate), Expi res: 03/12/2025 Start: 03-12-2024 End: 03-12-2025 Lipid 1996 panel - Serum or Plasma Lipid panel Lab Routine Type 2 diabetes mellitus with hyperglycemia, with long-term current use of insulin ([facility]) Expected: 03/12/2024 (Approximate), Expires: 03/12/2025 [facility] Comment on above: Expected: 03/12/2024 (Approximate), Expi res: 03/12/2025 Start: 03-12-2024 End: 03-12-2025 Microalbumin/Creatinine panel in random Urine Microalbumin / creatinine urine ratio Lab Routine Type 2 diabetes mellitus with hyperglycemia, with long-term current use of insulin ([facility]) Expected: 03/12/2024 (Approximate), Expires: 03/12/2025 [facility] Comment on above: Expected: 03/12/2024 (Approximate), Expi res: 03/12/2025 Start: 03-12-2024 End: 03-12-2025 Renal function panel Renal function panel Lab Routine Type 2 diabetes mellitus with hyperglycemia, with long-term current use of insulin ([facility]/HCC) Expected: 03/12/2024 (Approximate), Expires: 03/12/2025 [facility] Comment on above: Expected: 03/12/2024 (Approximate), Expi res: 03/12/2025 Start: 03-12-2024 End: 03-12-2025 Thyroid peroxidase antibody Thyroid peroxidase antibody Lab Routine Acquired hypothyroidism ([facility]/HCC) Expected: 03/12/2024 (Approximate), Expires: 03/12/2025 [facility] Comment on above: Expected: 03/12/2024 (Approximate), Expi res: 03/12/2025 Start: 03-12-2024 End: 03-12-2025 Thyrotropin [Units/volume] in Serum or Plasma TSH Lab Routine Acquired hypothyroidism (CMS/HCC) Expected: 03/12/2024 (Approximate), Expires: 03/12/2025 [facility] Comment on above: Expected: 03/12/2024 (Approximate), Expi res: 03/12/2025 Start: 03-12-2024 End: 03-12-2025 Thyroxine (T4) free [Mass/volume] in Serum or Plasma T4, free Lab Routine Acquired hypothyroidism (CMS/HCC) Expected: 03/12/2024 (Approximate), Expires: 03/12/2025 [facility] Comment on above: Expected: 03/12/2024 (Approximate), Expi res: 03/12/2025 Start: 03-12-2024 End: 03-12-2025 Triiodothyronine (T3) Free [Mass/volume] in Serum or Plasma T3, free Lab Routine Acquired hypothyroidism (CMS/HCC) Expected: 03/12/2024 (Approximate), Expires: 03/12/2025 [facility] Comment on above: Expected: 03/12/2024 (Approximate), Expi res: 03/12/2025 Start: 03-12-2024 End: 03-12-2024 Patient encounter procedure [facility] Comment on above: Type 2 diabetes mellitus with hyperglyce mily, with long-term current use of insulin ([facility]) Start: 03-07-2024 End: 03-07-2024 Patient encounter procedure 03/07/2024 10:00 AM EDT Office Visit [facility] [address] [facility] [address] Kayy Hines PA-C [address], [address] [place] [phone] [facility] Start: 03-06-2024 End: 03-06-2024 Patient encounter procedure 03/06/2024 8:30 AM EDT Office Visit [facility] [address] [place] [phone] Jyoti Wiggins NP [address] [place] [address] Arrived [facility] Comment on above: Arrived Start: 02-25-2024 End: 02-25-2024 Patient encounter procedure 02/25/2024 9:30 AM EDT Office Visit [facility] [address] [place] [phone] Jyoti Wiggins, OANH [address] [place] [address] [facility] Start: 02-05-2024 End: 02-05-2024 Clinical Support 02/05/2024 1:00 PM EDT Clinical Support [facility] [address] [place] [address] Jeremiah Finch RN Arrived [facility] Comment on above: Arrived Start: 02-01-2024 End: 02-01-2024 Patient encounter procedure 02/01/2024 3:15 PM EDT Office Visit Chayito Milligan [facility] - Medical Oncology [address] [place] [address] Dean Gunter MD [address] [place], [place] [phone] Chayito L [facility] - Medical Oncology Start: 01-27-2024 COVID-19 Vaccine ( season) COVID-19 Vaccine ( season) [facility] Start: 01-27-2024 Influenza vaccination [facility] Start: 12-29-2023 [facility] Start: 12-28-2023 [facility] Start: 12-27-2023 Glaucoma screening Diabetes: Retinopathy Screening [facility] Start: 12-27-2023 End: 12-27-2023 Patient encounter procedure [facility] Start: 12-27-2023 [facility] Start: 12-26-2023 End: 12-25-2024 Guidance for thoracentesis of Chest IR thoracentesis with guidance right Imaging Routine 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, estrogen receptor positive (CMS-HCC) Pleural effusion on right Expected: 12/26/2023, Expires: 12/25/2024 [facility] Work Phone: Comment on above: Expected: 12/26/2023, Expires: Start: 12-26-2023 Hospital admission [facility] Start: 12-26-2023 [facility] Start: 11-23-2023 End: 11-23-2023 Patient encounter procedure 11/23/2023 9:15 AM EDT Appointment [facility] - Mammogram DEXA [address] [place] [address] Dean Gunter MD [address] [facility] [address] [place] [address] [facility] - Mammogram DEXA Start: 11-16-2023 End: 11-16-2023 Patient encounter procedure 11/16/2023 11:00 AM EDT Appointment [facility] - Mammogram DEXA [address] [place] [phone] [facility] - Mammogram DEXA Start: 11-13-2023 End: 11-13-2023 ambulatory 11/13/2023 10:30 AM EDT Infusion Chayitogurpreet aCmejo [facility] - Medical Oncology [address] [place] [phone] Chayito Milligan [facility] - Medical Oncology Start: 11-12-2023 End: 11-12-2023 Admission to same day surgery center 11/12/2023 10:15 AM EDT - 11/12/2023 11:00 AM EDT Surgery [facility] Ambulatory Surgery A Division of [facility] - Surgery [address] [facility] [address] [place] [phone] Bo Rincon MD [address] [place] [address] REMOVAL PORT A CATH [66341 (CPT )] [facility] Comment on above: REMOVAL PORT A CATH [25006 (CPT )] Start: 11-12-2023 End: 11-12-2023 [facility] vad w/subq port/ophthalmic medical assistant ctr/prph insj REMOVAL PORT A CATH 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, estrogen receptor positive (CMS-HCC) 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) 11/12/2023 10:15 AM EDT [facility] SURGERY Start: 11-12-2023 Subsequent hospital visit by physician 11/12/2023 10:15 AM EDT Hospital Encounter [facility] [address] [facility] [address] [place] [phone] Bo Rincon MD [address] [place] [address] [facility] Start: 11-09-2023 End: 11-09-2023 Patient encounter procedure 11/09/2023 11:00 AM EDT Office Visit [facility] [address] [place] [address] Bo Rincon MD [address] [place] [address] [facility] Start: 11-06-2023 End: 11-05-2024 XR Cervical spine Views X-ray spine cervical 3 views or less Imaging Routine Diabetic peripheral neuropathy ([facility]-HCC) Expected: 11/06/2023, Expires: 11/05/2024 [facility] Work Phone: Comment on above: Expected: 11/06/2023, Expires: Start: 11-06-2023 End: 11-06-2023 Patient encounter procedure 11/06/2023 11:00 AM EDT Office Visit [facility] Neurology [address] [place] [phone] Kayy Hines, INDRA [address] [facility] [place] [phone] [facility] Start: 2023 End: 2023 Patient encounter procedure 2023 11:45 AM EDT Appointment [facility] - Mammogram DEXA [address] [place] [phone] [facility] - Mammogram DEXA Start: 09-20-2023 End: 09-20-2023 Patient encounter procedure 09/20/2023 10:00 AM EDT Office Visit Chayito L [facility] - Medical Oncology [address] [place] [phone] Dean Gunter MD [address] [place] [address] [address] [place] [address] Chayito Milligan [facility] - Medical Oncology Start: 09-18-2023 End: 09-18-2023 ambulatory 09/18/2023 10:20 AM EDT Infusion [facility]ay[facility] L [facility] - Medical Oncology [address] [place] [phone] Chayito Milligan [facility] - Medical Oncology Start: 08-15-2023 End: 08-15-2023 Patient encounter procedure 08/15/2023 2:45 PM EDT Appointment [facility] Imaging [address] [facility] [place] [phone] [facility] - MRI Imaging Start: 08-14-2023 End: 08-14-2023 Patient encounter procedure 08/14/2023 9:30 AM EDT Office Visit [facility] [address] [place] [address] Shaikh Weiss MD [address] [place] [address] [facility] Start: 08-11-2023 Tobacco Counseling Tobacco Counseling [facility] Start: 08-09-2023 End: 08-09-2023 ambulatory 08/09/2023 11:00 AM EDT Infusion [facility] - Medical Oncology [address] [place] [phone] [facility] - Medical Oncology Start: 08-02-2023 End: 08-02-2023 Patient encounter procedure 08/02/2023 9:30 AM EST Office Visit [facility] [address] [place] [address] Shaikh Weiss MD [address] [place] [address] [facility] Start: 08-01-2023 End: 08-01-2023 Patient encounter procedure 08/01/2023 12:00 PM EST Office Visit [facility] [address] [place] [phone] Blanca Rosales MD [address] [place] [address], [address], [address], [address] [place] [phone] [facility] Start: 07-27-2023 End: 07-27-2023 Patient encounter procedure 07/27/2023 11:15 AM EST Appointment [facility] - Total Re[facility] [address] [place] [phone] [facility] Start: 07-19-2023 End: 07-19-2023 Patient encounter procedure 07/19/2023 9:30 AM EST [facility] [address] [facility] [place] [phone] Ulnar neuropathy at elbow of right upper extremity; Torticollis [facility] Comment on above: Ulnar neuropathy at elbow of right upper extremity; Torticollis Start: 07-18-2023 Adult BMI Follow Up Plan Adult BMI Follow Up Plan [facility] Start: 07-16-2023 End: 07-16-2023 Patient encounter procedure 07/16/2023 10:00 AM EST Office Visit [facility] [address] [facility] [place] [phone] Baylee Yadav, [facility] [address] [place] [address] [facility] Start: 07-12-2023 End: 07-12-2023 Patient encounter procedure 07/12/2023 2:15 PM EST Appointment [facility] - MRI [address] [place] [phone] [facility] Start: 07-12-2023 Subsequent hospital visit by physician 07/12/2023 2:15 PM EST Hospital Encounter [facility] [address] [place] [phone] [facility] Start: 07-06-2023 End: 07-06-2023 Patient encounter procedure 07/06/2023 2:00 PM EST Office Visit [facility] [address] [place] [phone] Rodolfo Avila MD [address] [place] [address], [address] [place] [address] Kayy Hines, PA-C [address] [place] [address], [address] [place] [phone] [facility] Start: 07-04-2023 End: 07-04-2024 Basic metabolic 1998 panel - Serum or Plasma Basic metabolic panel Lab Routine Stage 3a chronic kidney disease (HCC) (CMS/HCC) Expected: 07/04/2023 (Approximate), Expires: 07/04/2024 [facility] Work Phone: Comment on above: Expected: 07/04/2023 (Approximate), Expi res: 07/04/2024 Start: 07-04-2023 End: 07-04-2023 Patient encounter procedure 07/04/2023 9:15 AM EST Office Visit [facility] [address] [place] [phone] Shaikh Weiss MD [address] [place] [phone] Arrived [facility] Comment on above: Arrived Start: 06-28-2023 End: 06-28-2023 ambulatory 06/28/2023 11:00 AM EST Infusion Chayito L [facility] - Medical Oncology [address] [place] [phone] Chayito L [facility] - [facility] On[facility] Start: 06-22-2023 End: 06-22-2023 Patient encounter procedure 06/22/2023 3:00 PM EST Office Visit [facility] [address] [place] [phone] Rodolfo Avila MD [address] [facility] [place] [phone] Kayy Hines, PAEsdrasC [address] [facility], [address] [place] [phone] [facility] Start: 04-17-2023 COVID-19 Vaccine ( season) COVID-19 Vaccine ( season) [employer] [facility] Start: 02-25-2023 Hemoglobin A1c measurement Diabetes: Hemoglobin A1C [facility] Start: 05-23-2022 ambulatory Ambulatory Facility: Start: 11-02-2007 Fall Risk Screening Fall Risk Screening [facility] Start: 1961 DTaP,Tdap and Td Vaccines (1 - Tdap) DTaP,Tdap and Td Vaccines (1 - Tdap) [facility] Start: 1961 Urine screening for protein Diabetes: Urine Protein Screening [facility] Start: 1954 Depression Screening Depression Screening [facility] Start: 1942 Medicare Annual Wellness Visit Medicare Annual Wellness Visit [facility] Bedside Glucose *Place/Obtain serum glucose if >500 per glucometer. Bedside Glucose *Place/Obtain serum glucose if >500 per glucometer. Point of Care Testing Routine 4X Daily (AC and at bedtime) until discontinued starting 12/07/2024, 7 completed [employer] Work Phone: Comment on above: 4X Daily (AC and at bedtime) until disco ntinued starting 12/07/2024, 7 completed CBC W Auto Different ial panel - Blood CBC auto differential Lab Routine Lab max of 3 days, Daily, for lab use only until discontinued starting 12/07/2024, 2 completed [employer] Comment on above: Lab max of 3 days, Daily, for lab use on ly until discontinued starting 12/07/2024, 2 completed CBC W Auto Different ial panel - Blood CBC auto differential Lab Routine 01/16/2025 11:48 AM EDT [facility] [employer] Work Phone: Comprehensive metabo lic 2000 panel - Serum or Plasma Comprehensive metabolic panel Lab Routine Lab max of 3 days, Daily, for lab use only until discontinued starting 12/07/2024, 2 completed [employer] Comment on above: Lab max of 3 days, Daily, for lab use on ly until discontinued starting 12/07/2024, 2 completed End: 01-31-2025 Creatinine includes GFR, serum Creatinine includes GFR, serum Lab Routine 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, estrogen receptor positive (CMS-HCC) Pleural effusion on right 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) 1 Occurrences starting 02/01/2024 until 01/31/2025 [employer] Comment on above: 1 Occurrences starting 02/01/2024 until 01/31/2025 End: 07-06-2024 Cyanocobalamin vitamin b-12 Vitamin B12 Lab Routine Diabetic peripheral neuropathy ([facility]) Vitamin B12 deficiency Vitamin B6 deficiency 1 Occurrences starting 07/06/2023 until 07/06/2024 [employer] Phone: Comment on above: 1 Occurrences starting 07/06/2023 until 07/06/2024 End: 12-25-2024 Cytology Cytology Pathology and Cytology Routine 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, estrogen receptor positive (CMS-HCC) Pleural effusion on right 1 Occurrences starting 12/26/2023 until 12/25/2024 [employer] Comment on above: 1 Occurrences starting 12/26/2023 until 12/25/2024 End: 11-05-2024 EMG NCV EMG NCV Neurology Routine Paresthesias in right hand 1 Occurrences starting 11/06/2023 until 11/05/2024 [employer] Comment on above: 1 Occurrences starting 11/06/2023 until 11/05/2024 End: 07-06-2024 EMG NCV EMG NCV Neurology Routine Diabetic peripheral neuropathy ([facility]-HCC) Ulnar neuropathy at elbow of right upper extremity 1 Occurrences starting 07/06/2023 until 07/06/2024 [employer] Comment on above: 1 Occurrences starting 07/06/2023 until 07/06/2024 End: 12-06-2024 Interventional radiology Consult note Consult to Interventional Radiology Imaging Routine One time imaging One time imaging for 1 Occurrences starting 12/06/2024 until 12/06/2024 [employer] Comment on above: One time imaging One time imaging for 1 Occurrences starting 12/06/2024 until 12/06/2024 Magnesium [Mass/volu me] in Serum or Plasma Magnesium Lab Routine Lab max of 3 days, Daily, for lab use only until discontinued starting 12/07/2024, 2 completed [employer] Comment on above: Lab max of 3 days, Daily, for lab use on ly until discontinued starting 12/07/2024, 2 completed Oxygen Therapy - Maintain SpO2: 90% or greater Oxygen Therapy - Maintain SpO2: 90% or greater Respiratory Care STAT As Needed until discontinued starting 12/06/2024 [employer] Work Phone: Comment on above: As Needed until discontinued starting Oxygen Therapy - Maintain SpO2: 90%; *SHIPPING PACKER Guidelines for O2: Yes; Document: \[email or web address]\epi c\EPIC_Reference\Orders\ Respiratory Care Guidelines\CPG Oxygen 2022.pdf Oxygen Therapy - Maintain SpO2: 90%; *SHIPPING PACKER Guidelines for O2: Yes; Document: \[email or web address]\ep ic\EPIC_Reference\Order s\Respiratory Care Guidelines\CPG Oxygen 2022.pdf Respiratory Care Routine As Needed until discontinued starting 12/06/2024 [employer] Comment on above: As Needed until discontinued starting End: 07-06-2024 Vitamin B2 Vitamin B2 Lab Routine Diabetic peripheral neuropathy ([facility]) Vitamin B12 deficiency Vitamin B6 deficiency 1 Occurrences starting 07/06/2023 until 07/06/2024 [employer] Comment on above: 1 Occurrences starting 07/06/2023 until 07/06/2024 End: 07-06-2024 Vitamin B6 Vitamin B6 Lab Routine Diabetic peripheral neuropathy ([facility]) Vitamin B12 deficiency Vitamin B6 deficiency 1 Occurrences starting 07/06/2023 until 07/06/2024 [employer] Comment on above: 1 Occurrences starting 07/06/2023 until 07/06/2024 End: 12-09-2024 XR Chest Single view X-ray chest 1 view Imaging Routine One time imaging One time imaging for 1 Occurrences starting 12/09/2024 until 12/09/2024 [employer] Work Phone: Comment on above: One time imaging One time imaging for 1 Occurrences starting 12/09/2024 until 12/09/2024 Immunizations Immunization Date Immunization Notes Care Provider Dawna owens 03-06-2024 Seasonal trivalent influenza vaccine, adjuvanted, preservative free Jyoti Wiggins NP Work Phone: [facility] 03-06-2024 influenza virus vaccine, unspecified formulation Sebastian Chau PASTEURIZER-BODY STRAIGHTENER Work Phone: [facility] 02-20-2023 Influenza Vaccine, Quadrivalent, Adjuvanted Shaikh Isela ACOSTA Work Phone: [facility] 02-20-2023 influenza virus vaccine, unspecified formulation Pfo 1 [facility] 02-25-2022 influenza virus vaccine, unspecified formulation Shaikh Isela ACOSTA Work Phone: [facility] 02-21-2022 Influenza, High-dose , Quadrivalent Shaikh Isela ACOSTA Work Phone: [facility] 03-02-2021 COVID-19, mRNA, LNP- S, PF, 30mcg/0.3mL Dose Shaikh Isela ACOSTA Work Phone: [facility] 02-25-2021 Influenza Vaccine, Quadrivalent, Adjuvanted Shaikh Isela ACOSTA Work Phone: [facility] 07-07-2020 COVID-19, mRNA, LNP- S, PF, 30mcg/0.3mL Dose Shaikh Isela ACOSTA Work Phone: [facility] 06-18-2020 COVID-19, mRNA, LNP- S, PF, 30mcg/0.3mL Dose Shaikh Isela ACOSTA Work Phone: [facility] 06-03-2020 pneumococcal conjuga te vaccine, 13 valent Jyoti Wiggins [employer]ISSION WORKER Work Phone: [facility] 07-07-2019 zoster vaccine recombinant Shaikh Isela ACOSTA Work Phone: [facility] 04-11-2019 zoster vaccine recombinant Shaikh Isela ACOSTA Work Phone: [facility] 04-03-2019 influenza virus vaccine, unspecified formulation Shaikh Isela ACOSTA Work Phone: [facility] 03-21-2019 influenza virus vaccine, unspecified formulation DO Susanne Cannon Work Phone: [facility] 08-06-2018 influenza, injectabl e, quadrivalent, preservative free Shaikh Isela ACOSTA Work Phone: [facility] 03-04-2018 influenza virus vaccine, unspecified formulation DO Susanne Cannon Work Phone: [facility] 03-04-2018 Seasonal trivalent influenza vaccine, adjuvanted, preservative free Shaikh Isela ACOSTA Work Phone: [facility] 02-26-2017 influenza virus vaccine, unspecified formulation DO Susannefranklin Cannon Work Phone: [facility] 02-26-2017 influenza, high dose seasonal, preservative-free Shaikh Isela ACOSTA Work Phone: [facility] Payers Date Payer Category Payer Managed Care Other (unspecified) [facility] [id number] 2024 Private Health Insurance [id number] 2023 Medicare [id number] 2023 Self-pay [id number] 2022 Medicare DEVOTED [employer] [place] MEDIC[place] DEVOTED HEALTH MEDICARE ADVANTAGE [id number] 2022-Present [phone] [address] [place] [address] [id number]. [id number] 2022 Medicare (Managed Care) 1.2. [id number]. [id number] 2022 Medicare HMO [id number]. [id number]. [id number] 2022 Unknown [id number]. 1.13.693.2. 7.3.260846.315 2022 Medicare [id number] 2019 Unknown [id number] 1959 Medicare [id number] 1959 Unknown [id number] 1942 Unknown [id number] 2.16.840.1.533702.3.579.2. 647 1942 Unknown [id number] 2.16.840.1.357744.3.579.2. 593 1942 Unknown [id number] 2.16.840.1.308404.3.579.2. 593 1942 Unknown [id number] 2.16.840.1.955266.3.579.2. 593 1942 Unknown [id number] 2.16.840.1.049866.3.579.2. 593 1942 Unknown [id number] 2.16.840.1.422781.3.579.2. 593 1942 Unknown [id number] 2.16.840.1.570971.3.579.2. 593 1942 Unknown [id number] 2.16.840.1.181623.3.579.2. 593 1942 Unknown [id number] 2.16.840.1.127804.3.579.2. 593 1942 Unknown [id number] 2.16.840.1.515604.3.579.2. 593 1942 Unknown [id number] 2.16.840.1.056184.3.579.2. 593 1942 Unknown [id number] 2.16.840.1.539002.3.579.2. 593 1942 Unknown [id number] 2.16.840.1.050011.3.579.2. 593 1942 Unknown [id number] 2.16.840.1.905845.3.579.2. 1286 1942 Unknown [id number] 2.16.840.1.372968.3.579.2. 1286 1942 Unknown [id number] 2.16.840.1.422442.3.579.2. 1286 1942 Unknown [id number] 2.16840.1.743517.3.579.2. 1286 1942 Unknown [id number] 2.16840.1.038061.3.579.2. 1286 1942 Unknown [id number] 2.16840.1.683398.3.579.2. 1286 1942 Unknown [id number] 2.16840.1.157870.3.579.2. 1286 1942 Unknown [id number] 2.16840.1.138192.3.579.2. 1286 1942 Unknown [id number] 2.16840.1.075695.3.579.2. 1286 1942 Unknown [id number] 2.16840.1.148299.3.579.2. 1286 1942 Unknown [id number] 2.16840.1.026367.3.579.2. 1286 1942 Unknown [id number] 2.16840.1.746231.3.579.2. 1286 1942 Unknown [id number] 2.16840.1.487803.3.579.2. 128 1942 Unknown [id number] 2.16840.1.884214.3.579.2. 1259 1942 Unknown [id number] 2.16840.1.975951.3.579.2. 1258 1942 Unknown [id number] 2.16840.1.378788.3.579.2. 125 1942 Unknown [id number] 2.840.1.817261.3.579.2. 1258 1942 Unknown [id number] 2.840.1.489288.3.579.2. 1258 1942 Unknown [id number] 2.0.1.563200.3.579.2. 1258 1942 Unknown [id number] 2.840.1.292312.3.579.2. 1258 1942 Unknown [id number] 2.0.1.855042.3.579.2. 1258 1942 Unknown [id number] 2.840.1.450343.3.579.2. 1285 1942 Unknown [id number] 2.840.1.201034.3.579.2. 128 1942 Unknown [id number] 2.840.1.547140.3.579.2. 128 1942 Unknown [id number] 2.840.1.636879.3.579.2. 128 1942 Unknown [id number] 2.840.1.646215.3.579.2. 1285 1942 Unknown [id number] 2.840.1.035012.3.579.2. 1286 1942 Unknown [id number] 2.16.840.1.440073.3.579.2. 1286 1942 Unknown [id number] 2.16.840.1.640214.3.579.2. 1286 Unknown [id number] 2.16.840.1.954692.3.579.2. 531 Social History Date Type Detail Facility Start: 05-10-2023 End: 11-06-2023 Tobacco smoking status IDIS Ex-smoker [facility] Start: 03-23-1993 End: 03-23-2023 History of tobacco use Current smoker [facility] Start: 03-23-1993 End: 03-23-2023 History of tobacco use Cigarette Smoker [facility] Start: 05-10-2023 End: 11-06-2023 Tobacco use and exposure Smokeless tobacco non-user [facility] Start: 06-21-2023 End: 07-04-2023 Alcohol intake Lifetime non-drinker (finding) [facility] Start: 07-08-2020 End: 05-10-2023 History of Social function [facility] Start: 07-08-2020 End: 05-10-2023 Humiliation, Afraid, Rape, and Kick questionnaire [HARK] [facility] Within the last year , have you been afraid of your partner or ex-partner? No [facility] Do you belong to any clubs or organizations such as tenriism groups, unions, fraternal or athletic groups, or school groups? Yes [facility] Are you now , , , , never or living with a partner? [facility] How often to you hav e a drink containing alcohol? Never [facility] How many standard dr inks containing alcohol do you have on a typical day? Patient does not drink [facility] Do you feel stress - [...] [facility] Start: 1940 Sex Assigned At Not on file [facility] Start: 1940 Sex Assigned At Female [facility] History of tobacco use Passive smoker [facility] Start: 01-14-2024 End: 12-06-2024 Alcoholic beverage intake Current drinker of alcohol (finding) [facility] How often to you hav e a drink containing alcohol? Monthly or less [facility] Start: 07-18-2022 Tobacco Comment 1 pack a month [facility] Start: 07-15-2018 Alcohol Comment minimal- twice a month [facility] Start: 12-31-2014 Sex Female (finding) [facility] Start: 06-22-2023 Gender identity Identifies as female gender (finding) [facility] Start: 06-22-2023 Sexual orientation Heterosexual (finding) [facility] Start: 07-18-2022 Tobacco smoking status NHIS Occasional tobacco smoker [facility] Medical Equipment Procedure Code Equipment Code Equipment Origin al Text Equipment Identifier Dates [id number] Start: 11-26-2023 End: 11-05-2024 Introducer Shth Plwy 30cm 8fr 5cm Perc Mp Strl Disp Acpt - [id number] , [id number] FDA Start: 10-21-2021 Port Powerport C lrvu Argd 8fr 1 Lum Ltwt Intmd Leanne Pu - [id number] [id number] , [id number] FDA Start: 10-21-[address] Her ricardo Patch [id number] Start: 08-16-2018 Goals Date Patient Goal Desired Activity /State Personal health goal Comment on above: Formatting of this n ote might be different from the original. Evaluation of progress towards goal: Home with oxygen. Personal health goal Comment on above: Formatting of this n ote might be different from the original. Evaluation of progress towards goal: under assessment Personal health goal Comment on above: Formatting of this n ote might be different from the original. Evaluation of progress towards goal: Patient declines a need for home health care at this time. She plans to return to home independently and resume her oxygen at a basline of 3 L. Functional Status Date Assessment Result Facility [facility] Mental Status Date Assessment Result Facility [facility] Clinical Notes 06-20-2023 to 01-27-2025 Telephone Encounter - Adeline Iqbal CMA - 01/27/2025 2:39 PM EDTTelephone Encounter - Rosa Elena Cuellar RN - 01/27/2025 2:39 PM EDTTelephone Encounter - Adeline Iqbal CMA - 01/27/2025 2:39 PM EDT Note Date & Type Note Facility 01-27-2025 Miscellaneous Notes Paperwork received from the [facility] via fax. Paperwork has been given to the RN for completion. Paperwork was received in faxes on 01/14/25 and is pertaining to botox approval through the [facility]. RN has sent a message to the botox department to address. documented in this encounter [facility] 01-27-2025 Telephone encounter Note Paperwork received from the [facility] via fax. Paperwork has been given to the RN for completion. [facility] 01-27-2025 Telephone encounter Note Paperwork was received in faxes on 01/14/25 and is pertaining to botox approval through the [facility]. RN has sent a message to the botox department to address. [facility] 01-19-2025 Note SUBJECTIVE Reason for Visit: Kay Ly is a 84 y.o. year old female patient being seen for follow-up CHF exacerbation. HPI: Kay Ly is a 84 y.o. year old female with significant medical history of HFmrEF, CAD, HLD, DM, COPD (former smoker), and HTN. 01/19/2025 office visit: Patient seen and evaluated in the office today. She was hospitalized recently in November for acute on chronic heart exacerbation. Shortness of breath is reported as improved. She reports that she has been out of SGLT2 inhibitor for at least a few months. Otherwise, she denies chest pain, lightheadedness or dizziness, or palpitations. +2 lower extremity mental exam. 11/07/2024 office visit: Patient seen and evaluated in the office today. She is accompanied by her brother. She is on her baseline oxygen at 2 L nasal cannula. She is able to ambulate without any KWON with her oxygen in. On exam, she has trace lower extremity edema - reports this as stable. Otherwise, she denies chest pain, palpitations, lightheadedness dizziness. 04/28/2024 office visit (Dr. Martinez): Kay Ly is a 83 y.o. female With [...] no paroxysmal: Dyspnea, and no lower extremity Update 04/28/2024: Doing fairly well. Shortness of breath is the same if no worse. Denies chest pain. No orthopnea, no paroxysmal external dyspnea, no lower extremity edema. No significant weight gain or abdominal distention. Was on both lisinopril and losartan in the past but these were stopped presumably due to dizziness/lightheadedness Medical History[1] Surgical History[2] Problem List[3] family history is not on file. Social History[4] OBJECTIVE Visit Vitals Smoking Status Former Physical Exam Constitutional: General Appearance: well-developed, appears stated age. Level of Distress: no acute distress. Neck: Jugular Veins: normal jugular venous pressure. Lungs: Auscultation: no rales or rhonchi and normal breath sounds. Cardiovascular: Rate And Rhythm: regular Heart Sounds: normal S1 and s2; Systolic Murmur: not heard. Diastolic Murmur: not heard. Extremities: +2 LE edema. Peripheral Pulses: Pulses: full and equal in all extremities except if noted. Abdomen: Inspection and Palpation: non distended or tender and soft. Musculoskeletal: Inspection: no joint tenderness or swelling. Neurologic: Gait: normal gait. Psychiatric: Mental Status: alert and normal affect. Skin: Inspection and Palpation: warm and dry. Allergies: Allergies[5] Outpatient Medications: Current Outpatient Medications Medication Instructions alogliptin (NESINA) 12.5 mg, Daily aspirin 81 mg, Daily RT atorvastatin (LIPITOR) 40 mg, Nightly tlnpcdzqox-dawfmnif-gxkuplxwds (Breztri Aerosphere) 160-9-4.8 mcg/actuation HFA aerosol inhaler Every 12 hours cyanocobalamin (VITAMIN B-12) 1,000 mcg, Daily RT DULoxetine (CYMBALTA) 20 mg, Daily RT empagliflozin (JARDIANCE) 10 mg, Daily furosemide (LASIX) 40 mg, oral, Once Daily insulin glargine (Lantus) 100 unit/mL injection Inject under the skin. insulin glargine-yfgn 100 unit/mL (3 mL) insulin pen Inject under the skin. letrozole (FEMARA) 2.5 mg, Daily meclizine (ANTIVERT) 25 mg metFORMIN (GLUCOPHAGE) 500 mg metoprolol succinate XL (TOPROL-XL) 12.5 mg, oral, Once Daily, Do not crush or chew. pantoprazole (ProtoNix) 40 mg EC tablet TAKE 1 TABLET BY MOUTH EVERY DAY IN THE MORNING BEFORE MEALS pregabalin (LYRICA) 150 mg, 2 times daily rOPINIRole (REQUIP) 3 mg, Daily RT Synthroid 75 mcg Recent Labs: No visits with results within 6 Month(s) from this visit. Latest known visit with results is: [facility] En[facility] on 07/11/2019 Component Date Value Glucose 07/11/2019 195 (H) BUN 07/11/2019 19 Creatinine 07/11/2019 1.06 Sodium 07/11/2019 136 Potassium 07/11/2019 4.9 Chloride 07/11/2019 103 CO2 07/11/2019 26 Calcium 07/11/2019 10.1 eGFR - Non- Ameri* 07/11/2019 50 (A) eGFR - 07/11/2019 >60 Labs 08/19/2024: Sodium 142, glucose 160, potassium 4.0, creatinine 1.6, calcium 9.2, eGFR 32, 3.7 LDL 29, HDL 31, total cholesterol 73, triglycerides 86 TSH 4.6 I have personally reviewed and anaylzed the following laboratory results above. These findings have been analyzed in the context of the patient's clinical presentation. Cardiovascular Diagnostic Studies: Stress test 12/07/2023: Coronary angiogram 07/11/2019: TTE 12/26/2023: TTE 12/08/2024 ([facility]): Left Ventricle: Left ventricle appears normal in size. There is mild increased wall thickness/hypertrophy. Systolicfunction is mildly decreased with an ejection fraction of 45-50%. (more content not included)... [facility] 01-12-2025 History of Present illness Narrative Associated Problem(s): COPD (chronic obstructive pulmonary disease) ([facility]) Breathing stable and continue inhalers. Follow with pulmonology. Associated Problem(s): Benign essential HTN BP controlled and monitor PRN. Associated Problem(s): Type 2 diabetes mellitus with hyperglycemia, with long-term current use of insulin (HCC) BS starting to drop low and decreased oral intake. Stop metformin and decrease lantus to 10 units daily. 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 Associated Problem(s): Chronic heart failure with mildly reduced ejection fraction (HFmrEF, 41-49%) (HCC) No edema and continue lasix. Follow with cardiology. Images from the original note were not included. Subjective Patient ID: Kay Ly is a 84 y.o. female who presents for Follow-up (Hospital f/up/mobility). Follow up DM, edema, and COPD. Patient stable today. Starting to have low BS and in am around 50. Still taking lantus 15 units daily and metformin BID. Reports decreased appetite and not eating as much. Denies signs of elevated BS such as polyuria, polyphagia or polydipsia. Checking BP PRN and typically controlled. BP normal today. Taking medication daily and tolerating without side effects. Edema controlled with medication. Mild swelling at end of day and if on feet a lot. Edema improved in am and with elevation. Has not started jardiance and [facility]. COPD stable. Mild SOB with exertion. Occasional cough but no sputum. Remains on oxygen. Review of Systems Respiratory: Negative for cough, shortness of breath and wheezing. Cardiovascular: Negative for chest pain and palpitations. Gastrointestinal: Negative for abdominal pain, diarrhea, nausea and vomiting. Genitourinary: Negative for dysuria. Objective Physical Exam Constitutional: General: She is not in acute distress. Appearance: Normal appearance. HENT: Head: Normocephalic. Right Ear: Tympanic membrane normal. Left Ear: Tympanic membrane normal. Eyes: Extraocular Movements: Extraocular movements intact. Pupils: Pupils are equal, round, and reactive to light. Cardiovascular: Rate and Rhythm: Normal rate and regular rhythm. Heart sounds: No murmur heard. No friction rub. No gallop. Pulmonary: Effort: Pulmonary effort is normal. Breath sounds: Normal breath sounds. No wheezing, rhonchi or rales. Abdominal: General: Bowel sounds are normal. There is no distension. Palpations: Abdomen is soft. Tenderness: There is no abdominal tenderness. There is no guarding or rebound. Musculoskeletal: Cervical back: Neck supple. Right lower leg: No edema. Left lower leg: No edema. Neurological: Mental Status: She is alert. Assessment/Plan Problem List Items Addressed This Visit Benign essential HTN BP controlled and monitor PRN. Relevant Orders Basic metabolic panel Type 2 diabetes mellitus with hyperglycemia, with long-term current use of insulin (HCC) - Primary BS starting to drop low and decreased oral intake. Stop metformin and decrease lantus to 10 units daily. Chronic heart failure with mildly reduced ejection fraction (HFmrEF, 41-49%) ([facility]) No edema and continue lasix. Follow with cardiology. 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 Relevant Orders TSH T4, free COPD (chronic obstructive pulmonary disease) (HCC) Breathing stable and continue inhalers. Follow with pulmonology. Encounter for long-term (current) use of medications Relevant Orders CBC and differential documented in this encounter [facility] 12-23-2024 History of Present illness Narrative Associated Problem(s): Type 2 diabetes mellitus with hyperglycemia, with long-term current use of insulin ([facility]) A1C 6.9. Freestyle Jose not giving accurate readings and try dexcom. Associated Problem(s): COPD (chronic obstructive pulmonary disease) ([facility]) Breathing stable and continue inhalers. Follow with pulmonology. Associated Problem(s): Chronic respiratory failure with hypoxia ([facility]) Follow with pulmonology. Continue portable concentrator at 2 LPM Associated Problem(s): Chronic heart failure with mildly reduced ejection fraction (HFmrEF, 41-49%) ([facility]) No edema and continue lasix. Follow with cardiology. Images from the original note were not included. Subjective Patient ID: Kay Ly is a 84 y.o. female who presents for Follow-up (Hospital f/up breathing issues). Hospital follow up from 12/06-12/12. Initially admitted for COPD exacerbation and started steroids. Found pleural effusion and transferred for thoracentesis. Removed 1500 mL and significantly improved. Echo showed EF 45-50%. A1C 6.9. Overall feels well. Remains on oxygen and uses 2 LMP with concentrator. BS starting to go low. Using freestyle jose and concerned not accurate. At times will alarm BS 55 and check with finger stick and in 80s. Review of Systems Respiratory: Negative for cough, shortness of breath and wheezing. Cardiovascular: Negative for chest pain and palpitations. Gastrointestinal: Negative for abdominal pain, diarrhea, nausea and vomiting. Genitourinary: Negative for dysuria. Objective Physical Exam Constitutional: General: She is not in acute distress. Appearance: Normal appearance. HENT: Head: Normocephalic. Right Ear: Tympanic membrane normal. Left Ear: Tympanic membrane normal. Eyes: Extraocular Movements: Extraocular movements intact. Pupils: Pupils are equal, round, and reactive to light. Cardiovascular: Rate and Rhythm: Normal rate and regular rhythm. Heart sounds: No murmur heard. No friction rub. No gallop. Pulmonary: Effort: Pulmonary effort is normal. Breath sounds: Normal breath sounds. No wheezing, rhonchi or rales. Abdominal: General: Bowel sounds are normal. There is no distension. Palpations: Abdomen is soft. Tenderness: There is no abdominal tenderness. There is no guarding or rebound. Musculoskeletal: Cervical back: Neck supple. Right lower leg: No edema. Left lower leg: No edema. Neurological: Mental Status: She is alert. Assessment/Plan Problem List Items Addressed This Visit Type 2 diabetes mellitus with hyperglycemia, with long-term current use of insulin ([facility]) A1C 6.9. Freestyle Jose not giving accurate readings and try dexcom. Relevant Medications Continuous Glucose Slitter And Rewinder Machine Operator (Dexcom G7 Slitter And Rewinder Machine Operator) device Continuous Glucose Sensor (Dexcom G7 Sensor) misc Chronic heart failure with mildly reduced ejection fraction (HFmrEF, 41-49%) ([facility]) - Primary No edema and continue lasix. Follow with cardiology. COPD (chronic obstructive pulmonary disease) ([facility]) Breathing stable and continue inhalers. Follow with pulmonology. Chronic respiratory failure with hypoxia ([facility]) Follow with pulmonology. Continue portable concentrator at 2 LPM documented in this encounter [facility] 12-08-2024 Plan of care note Problem: Pain Goal: Patient goal is pain score less than 4, able to rest, and participant in treatment plan as appropriate Description: INTERVENTIONS: 1. Encourage patient or legal communications representative to report early pain and ask for pain medicine when needed 2. Assess pain using appropriate pain scale and include the scale used when documenting 3. Administer analgesics based on type and severity of pain and evaluate response within appropriate time frame 4. Implement non-pharmacological measures as appropriate and evaluate response 5. Consider cultural and social influences on pain and pain management 6. Notify LIP if interventions ineffective or patient reports new pain 7. Monitor vital signs including pulse ox, end-tidal CO2 based on pain intervention 8. Reassess pain per policy 9. Teach patient or legal communications representative interventions for comforting Outcome: Progressing Note: Evaluation of progress towards goal: Pt rates pain 0, prn medication available. Problem: Safety Goal: Patient will be injury free during hospitalization Description: INTERVENTIONS: 1. Assess patient's risk for falls and implement fall prevention plan of care per policy 2. Provide and maintain a safe environment 3. Proper use of double Identifiers 4. Medication administration using the 5 rights 5. Hand hygiene 6. Specimens are labeled at the bedside 7. Instruct patient/ patient communications representative about use of safety devices 8. Include patient/ patient communications representative in decisions related to safety Outcome: Progressing Note: Evaluation of progress towards goal: Pt. Remains free from falls and injuries. Call light in reach, bed in lowest position. Problem: Infection Goal: Absence of infection during hospitalization Description: INTERVENTIONS 1. Assess and monitor for signs and symptoms of infection. 2. Monitor lab/diagnostic results. 3. Monitor all insertion sites i.e., indwelling lines, tubes and drains. 4. Monitor endotracheal (as able) and nasal secretions for changes in amount and color. 5. Administer medications as ordered. 6. Instruct and encourage patient and family to use good hand hygiene technique. 7. Identify and instruct patient/patient communications representative in use of appropriate isolation precautions for identified infection/symptoms. 8. Provide and discuss with patient/patient communications representative on educational MDRO sheet. 9. Encourage and monitor nutritional status daily and consult search engine optimization strategist if indicated. 10. Implement neutropenic guidelines as needed. Outcome: Progressing Note: Evaluation of progress towards goal: Problem: Knowledge Deficit Goal: Patient/patient communications representative demonstrates understanding of disease process, treatment plan, medications, and discharge instructions Description: INTERVENTIONS 1. Complete learning assessment and assess knowledge base 2. Provide teaching at level of understanding 3. Provide teaching via preferred learning method(s) Outcome: Progressing Note: Evaluation of progress towards goal: Patient updated on POC along with medication. Patient voiced understanding. Problem: Discharge Planning Goal: Discharge to post-acute care, other facility, or home with appropriate resources Description: Patient's goal is: INTERVENTIONS 1. Conduct assessment to determine patient/family and health care team treatment goals, and need for post-acute services based on payer coverage, community resources, and patient preferences, and barriers to discharge 2. Coordinate with Social work, Care Navigation, and Utilization Review to arrange appropriate level of services according to patient's needs based on patient preference and payer coverage in collaboration with the physician and health care team 3. Address psychosocial, clinical, and financial barriers to discharge as identified in assessment in conjunction with the patient/family and health care team 4. Consult appropriate ancillary services (i.e.. PT/OT/ST, etc) as needed 5. Communicate with and update the patient/family, physician, and health care team regarding progress on the discharge plan 6. Identify discharge learning needs (meds, wound care, etc). 7. Arrange for needed discharge transportation as appropriate Outcome: Progressing Note: Evaluation of progress towards goal: Multidisciplinary teams working together with patient to achieve discharge goals. [facility] 12-08-2024 Miscellaneous Notes Problem: Pain Goal: Patient goal is pain score less than 4, able to rest, and participant in treatment plan as appropriate Description: INTERVENTIONS: 1. Encourage patient or legal communications representative to report early pain and ask for pain medicine when needed 2. Assess pain using appropriate pain scale and include the scale used when documenting 3. Administer analgesics based on type and severity of pain and evaluate response within appropriate time frame 4. Implement non-pharmacological measures as appropriate and evaluate response 5. Consider cultural and social influences on pain and pain management 6. Notify LIP if interventions ineffective or patient reports new pain 7. Monitor vital signs including pulse ox, end-tidal CO2 based on pain intervention 8. Reassess pain per policy 9. Teach patient or legal communications representative interventions for comforting Outcome: Progressing Note: Evaluation of progress towards goal: Pt rates pain 0, prn medication available. Problem: Safety Goal: Patient will be injury free during hospitalization Description: INTERVENTIONS: 1. Assess patient's risk for falls and implement fall prevention plan of care per policy 2. Provide and maintain a safe environment 3. Proper use of double Identifiers 4. Medication administration using the 5 rights 5. Hand hygiene 6. Specimens are labeled at the bedside 7. Instruct patient/ patient communications representative about use of safety devices 8. Include patient/ patient communications representative in decisions related to safety Outcome: Progressing Note: Evaluation of progress towards goal: Pt. Remains free from falls and injuries. Call light in reach, bed in lowest position. Problem: Infection Goal: Absence of infection during hospitalization Description: INTERVENTIONS 1. Assess and monitor for signs and symptoms of infection. 2. Monitor lab/diagnostic results. 3. Monitor all insertion sites i.e., indwelling lines, tubes and drains. 4. Monitor endotracheal (as able) and nasal secretions for changes in amount and color. 5. Administer medications as ordered. 6. Instruct and encourage patient and family to use good hand hygiene technique. 7. Identify and instruct patient/patient communications representative in use of appropriate isolation precautions for identified infection/symptoms. 8. Provide and discuss with patient/patient communications representative on educational MDRO sheet. 9. Encourage and monitor nutritional status daily and consult search engine optimization strategist if indicated. 10. Implement neutropenic guidelines as needed. Outcome: Progressing Note: Evaluation of progress towards goal: Problem: Knowledge Deficit Goal: Patient/patient communications representative demonstrates understanding of disease process, treatment plan, medications, and discharge instructions Description: INTERVENTIONS 1. Complete learning assessment and assess knowledge base 2. Provide teaching at level of understanding 3. Provide teaching via preferred learning method(s) Outcome: Progressing Note: Evaluation of progress towards goal: Patient updated on POC along with medication. Patient voiced understanding. Problem: Discharge Planning Goal: Discharge to post-acute care, other facility, or home with appropriate resources Description: Patient's goal is: INTERVENTIONS 1. Conduct assessment to determine patient/family and health care team treatment goals, and need for post-acute services based on payer coverage, community resources, and patient preferences, and barriers to discharge 2. Coordinate with Social work, Care Navigation, and Utilization Review to arrange appropriate level of services according to patient's needs based on patient preference and payer coverage in collaboration with the physician and health care team 3. Address psychosocial, clinical, and financial barriers to discharge as identified in assessment in conjunction with the patient/family and health care team 4. Consult appropriate ancillary services (i.e.. PT/OT/ST, etc) as needed 5. Communicate with and update the patient/family, physician, and health care team regarding progress on the discharge plan 6. Identify discharge learning needs (meds, wound care, etc). 7. Arrange for needed discharge transportation as appropriate Outcome: Progressing Note: Evaluation of progress towards goal: Multidisciplinary teams working together with patient to achieve discharge goals. Images from the original note were not included. Discharge Planning Assessment Kay Yuki Aliyah Admit Status: Inpatient Meet: Yes Readmission Risk: Not available at time of assessment.. Date of Admission: 12/06/2024 GMLOS: Not available at time of assessment. Target Discharge Date: Not available at time of assessment. Discharge Planning Assessment completed at bedside. Stained Glass Glazier identified self and role to the patient. Patient is agreeable to the assessment and discussion of a safe discharge plan. Initial Assessment Flowsheet Row Most Recent Value Patient Information Initial Pre-Hospitalization Assessment Completed? Completed Primary Caregiver Self Support System Children, Family Members Discharge Planning Living Arrangements Alone Assistance Needed Patient is independent at home with ADL's and uses a walker for mobility. She has a cane but is not as steady as she used to be with it. She has a catch basin cleaner that comes twice/month. She completes her own cooking. She has 5 children, with two who live in the area. She states that she recently lossed her daughter who was employed at the hospital. Patient is tearful discussing this loss. She does not endore financial barriers to food, utilities or medications. Patient does have an appointment wiht Dr. George Hayden scheduled for tomorrow and patient was informed that we are recheduling this appointment for her. This was tasked to transition center. Type of Residence Private residence Private Residence [address] Accessibility Steps into home, [place] Number of Steps 2 Home Care Services No Community Referrals / Resources Provided Denies needs Who is the existing DME Provider? [employer] ([phone]) Established DME Comments Walker, cane, and home oxygen with a baseline of 3 liters. Stressors Type of stressor /grief Explain issues recent loss of her daughter, Bravo De La Cruz who was employed at the hospital. Income Information Income Information Retired/Pension/Social Security IP Hunger/Food Insecurity Screening Within the past 12 months we worried whether our food would run out before we got money to buy more. Never True Within the past 12 months the food we bought just didn't last and we didn't have money to get more. Never True Hunger Screening Complete? Yes Pt. Eligible for Food / Voucher No If Eligible: Received Food Box Not Offered to Patient Warm Handoff Complete Caregiver/Family Member Caregiver/Support System Limitations Caregiver/Support Systems Limitations (Check All That Apply) No Caregiver Needed Patient/Caregiver Goals Community Provider Referral Services Requested Patient expects to be discharged to: Home with self care Does the patient wish to have family/friend/caregiver involved in their discharge planning? No, the patient does not wish to have family/friend/caregiver involved in their discharge planning Discharge Disposition Home with self care Who is the existing DME Provider? [facility] [facility] ([phone]) Does the patient need discharge transportation arranged? No Patient choice offered Other (comment) [N/A. Patient declines need for home health care.] DC Planning Complete Discharge Milestones Yes Pharmacy: [facility] PCP: Dr. Hayden Consulting Providers this admission: None Patient will make her own follow up appointments: yes Patient Goals: Goals Home with self care (pt-stated) Evaluation of progress towards goal: Patient declines a need for home health care at this time. She plans to return to home independently and resume her oxygen at a basline of 3 L. PT Recommends: Score = 20; SNF OT Recommends: Pending evaluation Plan to prevent readmission: Patient is being transferred to [facility] for thoracentesis. Patient is refusing need for SNF or home health care at this time. Patient does not endorse any questions at this time. Patient Discharge Plan: Home with self care after transfer to [facility] for Thoracentesis. Follow up appointment as below: Dr. George Hayden (PCP) scheduled for December 09, 2024. Tasked transition center to reschedule appointment for two weeks from now. - Alpa Matthew RN 12/08/24 3:17 PM Problem: Pain Goal: Patient goal is pain score less than 4, able to rest, and participant in treatment plan as appropriate Description: INTERVENTIONS: 1. Encourage patient or legal communications representative to report early pain and ask for pain medicine when needed 2. Assess pain using appropriate pain scale and include the scale used when documenting 3. Administer analgesics based on type and severity of pain and evaluate response within appropriate time frame 4. Implement non-pharmacological measures as appropriate and evaluate response 5. Consider cultural and social influences on pain and pain management 6. Notify LIP if interventions ineffective or patient reports new pain 7. Monitor vital signs including pulse ox, end-tidal CO2 based on pain intervention 8. Reassess pain per policy 9. Teach patient or legal communications representative interventions for comforting Outcome: Progressing Note: Evaluation of progress towards goal: Pt able to report pain according to 0/10 pain scale. Medicating patient for pain per orders. Problem: Safety Goal: Patient will be injury free during hospitalization Description: INTERVENTIONS: 1. Assess patient's risk for falls and implement fall prevention plan of care per policy 2. Provide and maintain a safe environment 3. Proper use of double Identifiers 4. Medication administration using the 5 rights 5. Hand hygiene 6. Specimens are labeled at the bedside 7. Instruct patient/ patient communications representative about use of safety devices 8. Include patient/ patient communications representative in decisions related to safety Outcome: Progressing Note: Evaluation of progress towards goal: Pt's risk for falls assessed and fall prevention implemented as needed, safe environment provided and maintained, hand hygiene completed. Problem: Infection Goal: Absence of infection during hospitalization Description: INTERVENTIONS 1. Assess and monitor for signs and symptoms of infection. 2. Monitor lab/diagnostic results. 3. Monitor all insertion sites i.e., indwelling lines, tubes and drains. 4. Monitor endotracheal (as able) and nasal secretions for changes in amount and color. 5. Administer medications as ordered. 6. Instruct and encourage patient and family to use good hand hygiene technique. 7. Identify and instruct patient/patient communications representative in use of appropriate isolation precautions for identified infection/symptoms. 8. Provide and discuss with patient/patient communications representative on educational MDRO sheet. 9. Encourage and monitor nutritional status daily and consult search engine optimization strategist if indicated. 10. Implement neutropenic guidelines as needed. Outcome: Progressing Note: Evaluation of progress towards goal: Patient VS WNL, remains afebrile for shift. Problem: Moderate - High Risk Fall Score Description: Alfaro Fall Score of =/> 25 or indicated by [facility] Assessment Goal: Patient should be free from fall Description: Interventions: 1. [place] to environment 2. Hourly rounds addressing the 4 P's (Pain, Positioning, Possessions, Potty) 3. Clear area of hazards (spills, clutter, electrical cords, unnecessary equipment) 4. Place equipment (bed & TV controls, call light, phone, urinal) within reach 5. Encourage patient to wear glasses and hearing aides as appropriate 6. Maintain bed in lowest position 7. Lock wheels on bed/wheelchair 8. Provide adequate lighting, including night light 9. Assess need for additional bedding, food/fluids, pain med's prior to sleep/routinely 10. Provide gripper slippers or personal non-skid footwear 11. Teach patient and patient communications representative to maintain environment for safety and engage in all aspects of fall prevention program 12. Remind patient to call for help before getting out of bed 13. Initiate bed/chair/exit alarms supportive devices as appropriate, (chair wedge, no-skid floor mat, raised edge mattress, hip protectors) 14. Locate patient bed assignment for optimal visualization 15. Evaluate and identify Safe Patient Handling Equipment needs 16. Provide supervision when out of bed or chair 17. Utilize gait belt as needed to assist with ambulation 18. Place adaptive equipment (cane, walker) within reach 19. Request patient communications representative bring adaptive equipment/mobility aids from home or obtain and provide as needed 20. Consult pharmacy regarding effects of med's affecting mobility, cognition, and alternatives 21. Obtain physician order for PT if risk factors associated with mobility are present 22. Obtain physician order for OT as appropriate 23. Utilize diversional activities 24. Educate patient and patient communications representative how to maintain a safe environment during visitation times (notify nurse prior to leaving bedside) 25. Consider appropriateness of medical or non-medical orderly 26. Set up voiding schedule as appropriate (every 2 hours) Outcome: Progressing Note: Evaluation of progress towards goal: Pt remains free from falls or accidental injury during stay. Fall prevention measures in place. Hourly rounding per RN and maintained. Physical Therapy Evaluation Discharge Recommendations for Safe Patient Transition Discharge Recommendations: Post acute - moderate Post Acute Moderate Rehab Needs: Recommend moderate intensity rehab, Tolerate 1-2 hrs of therapy 3-5 days/wk, Subacute or chronic functional impairment Current Impairments Informing Therapy Recommendation: Ambulation status/safety, Fall risk, Endurance level Engineering Designer Support for-: Mobility Deficits, ADL Deficits Past Medical History: Diagnosis Date Arthritis Breast cancer ([facility] [place]) 2001 LT Breast cancer ([facility] [place]) 07/26/2021 RIGHT COPD (chronic obstructive pulmonary disease) ([facility] [place]) Diabetes ([facility] [place]) Diabetes mellitus type 2, controlled ([facility] [place]) HTN (hypertension) Hyperlipidemia Hypothyroidism [place] (myocardial infarction) ([facility] [place]) Obesity Pneumonia Restless leg Stage 3a chronic kidney disease ([facility] [place]) 07/18/2022 Varicella ? Visual impairment Past Surgical History: Procedure Laterality Date APPENDECTOMY BREAST BIOPSY BREAST LUMPECTOMY Left 2001 RADIATION AND CHEMO BREAST LUMPECTOMY Right 08/12/2021 CATARACT EXTRACTION CHOLECYSTECTOMY COLECTOMY COLONOSCOPY 12/15/2015 Dr. Cortez COLONOSCOPY N/A 01/13/2021 Performed by Wilberto Hughes DO at [facility] EYE SURGERY Cataracts HYSTERECTOMY LYMPH NODE BIOPSY MASTECTOMY Right MASTECTOMY W/ SENTINEL NODE BIOPSY Right 09/02/2021 OOPHORECTOMY REMOVAL PORT A CATH N/A 11/12/2023 Performed by Bo Rincon MD at [facility] AMBULATORY SURGERY REPAIR HERNIA VENTRAL. incarcerated N/A 08/16/2018 Performed by Kemar Beltre MD at [facility] SKIN BIOPSY UMBILICAL HERNIA REPAIR 6 Clicks: Basic Mobility Turning from your back to your side while in a flat bed without using bed rails?: None Moving from lying on your back to sitting on side of flat bed without using bed rails?: None Moving to and from bed to a chair (including w/c)?: A little Standing up from a chair using your arms (e.g. w/c or bedside chair)?: A little To walk in hospital room?: A little Climbing 3-5 steps with a railing?: A little Scoring 6 Clicks: Basic Mobility Raw Score: 20 [facility] G Code Modifier: CJ Therapy Plan Need for skilled Physical Therapy to address deficits in functional mobility due to a status decline resulting from COPD exacerbation. PT Treatment/Interventions: ADL retraining, Functional transfer training, LE strengthening/ROM, Endurance training, Balance, Stair training, Bed mobility, Gait training, Functional activities, Neuromuscular reeducation PT Frequency: 4-5days/week PT Duration: 10 days Assessment Patient Assessment Therapy Problem List: Decreased ADL status, Decreased balance, Decreased endurance, Decreased mobility, Decreased LE strength Patient Response to Treatment: Tolerated evaluation without adverse reaction Mood/Affect: Appropriate for circumstances Rehab Prognosis: Good, With continued PT status post acute discharge Visit RN Communication: Yes Medical Record Reviewed: Yes PT Type of Visit: Evaluation Precautions Activity: early mobility pass, OK to treat per RN Sade Equipment: Rolling walker, gait belt, non-skid socks, pure wick, telemetry, oxygen Weight Bearing Status: full Telemetry/Panel Edge Sealer: Yes Oxygen Used: 5L via NC Other: fall risk Subjective Physical Therapy Comments: Pt states she was going to start therapy for her legs - referred by her neurologist. Has not started that yet. Pt reports using a walker mostly at home. Pain Assessment Pain Assessment: No/denies pain Home Living Type of Home: Apartment Home Layout: One level Stairs to Enter: 2 Hand Rails: Bilateral Bathroom Shower/Tub: Tub/shower unit Bathroom Toilet: Standard Bathroom Equipment: Grab bars in shower (no chair/bench - stands to shower) Bathroom Accessibility: Accessible via walker (usually leaves the walker outside the bathroom) Home Equipment: Rolling walker, Cane, Home oxygen (toilet riser, pedal bike and treadmill for exercise, 3 L O2 at home) Prior Function Lives With: Alone Receives Help From: Family Level of Mobility: Independent with ADLs and functional transfers or gait (drives) Homemaking Assistance: Needs assistance (cleaning lady comes every couple of weeks) ADL / IADL Hand Dominance: Right Hearing / Speech / Vision Hearing: Within Functional Limits Speech: Within Functional Limits Current Vision: Wears glasses all the time, Wears glasses for distance only (except for reading) Cognition Overall Cognitive Status: Within Functional Limits Sensation Overall Sensation Status: (numbness 3-5th digits R hand, B feet - pt relates this to neuropathy) Perception / Proprioception Overall Status: Within Functional Limits Bed Mobility Supine to Sit: Stand by assist Sit to Supine: Stand by assist Other: sup <>sit with HOB elevated, used bed rail Transfers Sit to Stand: Contact guard assist Stand to Sit: Contact guard assist Gait Base of Support: Within Functional Limits Pattern: Decreased ginger, Forward trunk Gait Assistance: Contact guard assist Assistive Device: Rolling walker Gait Distance: 15ft x2 Limiting Factors to Gait: Fatigue, Decreased safety Included Uneven Surface: Yes 2 Turns: Yes Other: Pt AMB to bathroom with rolling walker, CGA. AMB back to bed after toileting. Balance Sitting Balance: Static: Good Sitting Balance: Dynamic: Good Standing Balance: Static: Fair Standing Balance: Dynamic: Fair Other: Stood at walker in bathroom and MIN A provided to [facility] brief for toileting. Use of AD for AMB due to balance deficits and weakness. RLE Assessment: (RLE strength 3+/5) LLE Assessment: (LLE strength 3+/5) Activity Tolerance Endurance: Tolerates <30 minutes activity WITHOUT vital sign changes Pre-Activity SpO2: 94 % During Activity SpO2 : 83 % Post-Activity SpO2: 97 % Other: Pt had a drop is SpO2 upon initial standing; sat back down with quick recovery into the upper 90s. Able to continue with AMB with O2 maintained in 90s Plan Physical Therapy Care Plan Physical Therapy Care Plan (Active) Template: PT - Physical Therapy Problem: Activity Tolerance Dates: Start: 12/07/24 Disciplines: PT Goal: Tolerate 30 minutes of activity WITH rest breaks Dates: Start: 12/07/24 Expected End: 12/16/24 Disciplines: PT Problem: Gait Dates: Start: 12/07/24 Disciplines: PT Goal: Patient will perform gait with Supervision Dates: Start: 12/07/24 Expected End: 12/16/24 Description: Pt will AMB 100 ft with least restrictive device with supervision to increase functional mobility and allow AMB in the home. Disciplines: PT Problem: Stairs/Curb Dates: Start: 12/07/24 Disciplines: PT Goal: Patient will perform stairs/curb with Supervision Dates: Start: 12/07/24 Expected End: 12/16/24 Description: To allow safe entry/exit to the home Disciplines: PT Problem: Standing Balance Dates: Start: 12/07/24 Disciplines: PT Goal: Improve balance to good Dates: Start: 12/07/24 Expected End: 12/16/24 Description: To decrease risk of falls Disciplines: PT Problem: Strength Dates: Start: 12/07/24 Disciplines: PT Goal: Improve strength Dates: Start: 12/07/24 Expected End: 12/16/24 Description: Pt will tolerate exercises for LE strengthening to increase strength for transfers and gait. Disciplines: PT Problem: Transfers Dates: Start: 12/07/24 Disciplines: PT Goal: Patient will perform transfers Independently Dates: Start: 12/07/24 Expected End: 12/16/24 Description: To increase overall functional mobility Disciplines: PT Physical Therapy Care Plan (Resolved) There are no resolved problems. Principal Problem: Acute respiratory failure with hypoxia ([facility]) Active Problems: Stage 3a chronic kidney disease ([facility]) Obesity (BMI 30-39.9) Benign essential HTN Diabetes mellitus ([facility] [place]) Mixed hyperlipidemia Hypokalemia Hypomagnesemia Cosigned by Danie Chavez MD at 12/07/2024 1:01 PM EDT Problem: Inadequate Breathing Pattern Goal: Patient will achieve/maintain normal respiratory rate/effort Description: Patient's goal is: INTERVENTIONS 1. Assess and monitor respiratory rate, effort, breathing pattern, and oxygenation 2. Monitor patient for restlessness, anxiety, air hunger 3. Assess physical activity tolerance 4. Assess tobacco history; ask, advise, and refer as appropriate 5. Collaborate with interdisciplinary team and initiate plans/interventions as needed Outcome: Not Progressing Note: Evaluation of progress towards goal: new admission, supplemental oxygen at 5 lpm via NC, pt often breathing through mouth instead of nose, will monitor pt and administer neb tx as ordered documented in this encounter [employer] 12-08-2024 Progress note Formatting of t his note is different from the original. Images from the original note were not included. Discharge Planning Assessment Kay Yuki Aliyah Admit Status: Inpatient Meet: Yes Readmission Risk: Not available at time of assessment.. Date of Admission: 12/06/2024 GMLOS: Not available at time of assessment. Target Discharge Date: Not available at time of assessment. Discharge Planning Assessment completed at bedside. Stained Glass Glazier identified self and role to the patient. Patient is agreeable to the assessment and discussion of a safe discharge plan. Initial Assessment Flowsheet Row Most Recent Value Patient Information Initial Pre-Hospitalization Assessment Completed? Completed Primary Caregiver Self Support System Children, Family Members Discharge Planning Living Arrangements Alone Assistance Needed Patient is independent at home with ADL's and uses a walker for mobility. She has a cane but is not as steady as she used to be with it. She has a catch basin cleaner that comes twice/month. She completes her own cooking. She has 5 children, with two who live in the area. She states that she recently lossed her daughter who was employed at the hospital. Patient is tearful discussing this loss. She does not endore financial barriers to food, utilities or medications. Patient does have an appointment wiht Dr. George Hayden scheduled for tomorrow and patient was informed that we are recheduling this appointment for her. This was tasked to transition center. Type of Residence Private residence Private Residence [address] Accessibility Steps into home, Railing Number of Steps 2 Home Care Services No Community Referrals / Resources Provided Denies needs Who is the existing DME Provider? [facility] [employer] [facility] ([phone]) Established DME Comments Walker, cane, and home oxygen with a baseline of 3 liters. Stressors Type of stressor /grief Explain issues recent loss of her daughter, Bravo De La Cruz who was employed at the hospital. Income Information Income Information Retired/Pension/Social Security IP Hunger/Food Insecurity Screening Within the past 12 months we worried whether our food would run out before we got money to buy more. Never True Within the past 12 months the food we bought just didn't last and we didn't have money to get more. Never True Hunger Screening Complete? Yes Pt. Eligible for Food / Voucher No If Eligible: Received Food Box Not Offered to Patient Warm Handoff Complete Caregiver/Family Member Caregiver/Support System Limitations Caregiver/Support Systems Limitations (Check All That Apply) No Caregiver Needed Patient/Caregiver Goals Community Provider Referral Services Requested Patient expects to be discharged to: Home with self care Does the patient wish to have family/friend/caregiver involved in their discharge planning? No, the patient does not wish to have family/friend/caregiver involved in their discharge planning Discharge Disposition Home with self care Who is the existing DME Provider? [facility] ([phone]) Does the patient need discharge transportation arranged? No Patient choice offered Other (comment) [N/A. Patient declines need for home health care.] DC Planning Complete Discharge Milestones Yes Pharmacy: [facility] PCP: Dr. Hayden Consulting Providers this admission: None Patient will make her own follow up appointments: yes Patient Goals: Goals Home with self care (pt-stated) Evaluation of progress towards goal: Patient declines a need for home health care at this time. She plans to return to home independently and resume her oxygen at a basline of 3 L. PT Recommends: Score = 20; SNF OT Recommends: Pending evaluation Plan to prevent readmission: Patient is being transferred to [facility] for thoracentesis. Patient is refusing need for SNF or home health care at this time. Patient does not endorse any questions at this time. Patient Discharge Plan: Home with self care after transfer to [facility] for Thoracentesis. Follow up appointment as below: Dr. George Hayden (PCP) scheduled for December 09, 2024. Tasked transition center to reschedule appointment for two weeks from now. - Alpa Matthew RN 12/08/24 3:17 PM [facility] 12-08-2024 Hospital course Narrative Images from the original note were not included. [facility] - [facility] [address] [id number] Hospital Medicine Discharge Summary Patient: Kay Ly Date of : 1940 Room: Encounter date: 12/08/24 DATE OF ADMISSION: 12/06/2024 DATE OF DISCHARGE:12/08/2024 DISCHARGE DIAGNOSES Principal Problem: Acute respiratory failure with hypoxia (CMS-HCC) Active Problems: Stage 3a chronic kidney disease (CMS-HCC) Obesity (BMI 30-39.9) Benign essential HTN Diabetes mellitus ([facility]) Mixed hyperlipidemia Hypokalemia COPD exacerbation ([facility]) Hypomagnesemia CONSULTANTS None PCP: GEORGE HAYDEN MD PROCEDURES None HOSPITAL COURSE SUMMARY Per HPI: Kay Ly is a 84 y.o. female who presents with shortness of breath. Was having shortness of breath at home with associated nausea and dizziness. Also noted that her pulse ox was high 80s or low 90s. Has a history of COPD, diabetes, , hypothyroidism, hypertension, CVA chronic kidney disease. Patient is dependent on 3 L at home. Chest x-ray revealed cardiomegaly with interstitial edema. Moderate right pleural effusion with adjacent atelectasis. Lab work remarkable for hemoglobin 10.8, creatinine 1.63, glucose 153, potassium 3.1, magnesium 1.3, BNP 851, troponin 18, 1 hour 18, normal pH, respiratory pathogen panel negative. Patient admitted for COPD exacerbation. Patient was able to get thoracentesis today due to getting heparin this a.m.. Unable to get thoracentesis now until . Transfer initiated for patient to get thoracentesis likely tomorrow to prevent delay of care. Clinical concern for sepsis, no-not clinically evident at this time. 12/08/24, Hospital Day: 3 Interval History: Status: unchanged. No overnight events or new complaints. Review of Systems Constitutional: Negative for chills and fever. HENT: Negative for ear pain and sore throat. Eyes: Negative for pain and visual disturbance. Respiratory: Positive for cough and shortness of breath. Cardiovascular: Negative for chest pain and palpitations. Gastrointestinal: Negative for abdominal pain and vomiting. Genitourinary: Negative for dysuria and hematuria. Musculoskeletal: Negative for arthralgias and back pain. Skin: Negative for color change and rash. Neurological: Positive for dizziness, weakness and light-headedness. Negative for seizures and syncope. Physical Exam BP 102/67 Pulse 63 Temp 36.6 C (97.9 F) (Oral) Resp 18 Ht 157.5 cm (5' 2 ) Wt 79 kg (174 lb 3.2 oz) SpO2 91% BMI 31.86 kg/m Intake/Output Summary (Last 24 hours) at 12/08/2024 1503 Last data filed at 12/08/2024 1000 Gross per 24 hour Intake 300 ml Output 1050 ml Net -750 ml Vitals and nursing note reviewed. Constitutional: Appearance: She is well-developed. She is obese. HENT: Head: Normocephalic and atraumatic. Nose: Nose normal. Eyes: Pupils: Pupils are equal, round, and reactive to light. Cardiovascular: Rate and Rhythm: Normal rate and regular rhythm. Heart sounds: Normal heart sounds. No murmur heard. Pulmonary: Effort: Pulmonary effort is normal. No respiratory distress. Breath sounds: Examination of the right-lower field reveals decreased breath sounds. Examination of the left-lower field reveals decreased breath sounds. Decreased breath sounds, wheezing and rhonchi present. Abdominal: General: Bowel sounds are normal. Palpations: Abdomen is soft. Tenderness: There is no abdominal tenderness. Musculoskeletal: General: Normal range of motion. Cervical back: Neck supple. Right lower leg: Edema present. Left lower leg: Edema present. Lymphadenopathy: Cervical: No cervical adenopathy. Skin: General: Skin is warm and dry. Findings: No rash. Neurological: Mental Status: She is alert and oriented to person, place, and time. Cranial Nerves: No cranial nerve deficit. Motor: Weakness present. Labs Recent Results (from the past 48 hours) SARS/FLU A+B/RSV by NAAT/Molecular (M4RT Collection Tube) Collection Time: 12/06/24 9:03 PM Result Value Ref Range FLU A PCR Negative Negative FLU B PCR Negative Negative RSV BY PCR Negative Negative SARS COV 2 BY PCR Not Detected Not Detected Narrative The Xpert Xpress SARS-CoV-2/Flu/RSV Plus test is a rapid, multiplexed real-time RT-PCR test intended for the simultaneous qualitative detection and differentiation of SARS-CoV-2, influenza A, influenza B and respiratory syncytial virus (RSV) viral RNA from individuals suspected of respiratory viral infection consistent with COVID-19 by Their healthcare provider. This test has not been validated in asymptomatic patients. The Xpert Xpress SARS-CoV-2 test is intended for use by qualified and trained operators who are performing tests using either [employer] or [employer] systems and is limited to laboratories that [...] acute phase of infection. Positive results are Indicative of the presence of the identified virus, [...] specimen repeat. Fact Sheet for Healthcare Providers: https://www.fda.gov/media/425022/ download Fact Sheet for Patients: https://www.fda.gov/media/567582/ download Resp Pathogens Panel/SARS CoV-2 Collection Time: 12/06/24 9:03 PM Result Value Ref Range SARS COV 2 BY PCR Not Detected Not Detected ADENOVIRUS Not Detected Not Detected CORONAVIRUS 229E Not Detected Not Detected CORONAVIRUS HKU1 Not Detected Not Detected CORONAVIRUS NL63 Not Detected Not Detected CORONAVIRUS OC43 Not Detected Not Detected HUMAN METAPNEUVIRUS Not Detected Not Detected RHINO/ENTEROVIRUS Not Detected Not Detected INFLUENZA A Not Detected Not Detected INFLUENZA B Not Detected Not Detected PARAINFLUENZA 1 Not Detected Not Detected PARAINFLUENZA 2 Not Detected Not Detected PARAINFLUENZA 3 Not Detected Not Detected PARAINFLUENZA 4 Not Detected Not Detected RESP SYNCYTIAL VIRUS Not Detected Not Detected BORD PARAPERTUSSIS Not Detected Not Detected BORDETELLA PERTUSSIS Not Detected Not Detected CHLAM.PNEUMONIAE Not Detected Not Detected MYCOPLASMA PNEUMONIAE Not Detected Not Detected Narrative The [employer] Respiratory Panel 2.1 (RP2.1) is a multiplexed nucleic acid test intended for the simultaneous qualitative detection and differentiation of nucleic acid from multiple viral and bacterial respiratory organisms, including nucleic acid from Severe Acute Respiratory Syndrome Coronavirus 2 (SARS-CoV-2), in nasopharyngeal swabs obtained from individuals suspected of COVID-19 by their healthcare provider. Testing is limited to laboratories certified under the Clinical Laboratory Improvement Amendments of 1988 (CLIA), to perform high complexity or moderate complexity tests. SARS-CoV-2 RNA and nucleic acids from the other respiratory viral and bacterial organisms identified by this test are generally detectable in nasopharyngeal swabs during the acute phase of infection. The detection and identification of specific viral and bacterial nucleic acids from individuals exhibiting signs and/or symptoms of respiratory infection is indicative of the presence of the identified microorganism and aids in the diagnosis of respiratory infection if used in conjunction with other clinical and epidemiological information. Positive results are indicative of the presence of the identified organism, but do not rule out co-infection with other pathogens. The agent(s) detected by the [employer] RP2.1 may not be the definite cause of disease and clinical correlation with patient history and other diagnostic information is necessary to determine patient infection status. Negative results in the setting of a respiratory illness may be due to infection with pathogens not detected by this test, or lower respiratory tract infection that may not be detected by a nasopharyngeal specimen. Negative results do not preclude SARS-CoV-2 infection and should not be used as the sole basis for patient management decisions. Negative SHAE-CoV-2 results must be combined with clinical observations, patient history and epidemiological information. Negative results for other organisms identified by the test may require additional laboratory testing when evaluating a patient with possible respiratory tract infection. CBC auto differential Collection Time: 12/06/24 9:12 PM Result Value Ref Range WBC 5.9 4 - 11 x10E9/L RBC Count 3.90 3.8 - 5.2 X10E12/L Hemoglobin 10.8 (L) 11.7 - 15.5 g/dL Hematocrit 33.3 (L) 35 - 47 % MCV 85 80 - 100 fL MCH 27.7 27 - 34 pg MCHC 32.5 32 - 36 g/dL RDW 19.1 (H) 11.5 - 15 % Platelet Count 191 150 - 450 X10E9/L MPV 8.4 7 - 12 fL Neutrophils % 82.1 % Lymphocytes % 9.9 % Monocytes % 4.9 % Eosinophils % 2.1 % Basophils % 1.0 % Neutrophils Absolute (A) 4.8 1.5 - 6.6 10*3/uL Lymphocytes Absolute 0.6 (L) 1.0 - 3.5 10*3/uL Monocytes Absolute 0.3 0.0 - 0.9 10*3/uL Eosinophils Absolute 0.1 0.0 - 0.4 10*3/uL Basophils Absolute 0.1 0.0 - 0.2 10*3/uL Differential Type AUTOMATED DIFFERENTIAL Protime & INR Collection Time: 12/06/24 9:12 PM Result Value Ref Range PROTIME 12.6 9.8 - 13.2 sec INR 1.1 0.9 - 1.2 APTT Collection Time: 12/06/24 9:12 PM Result Value Ref Range APTT 31 26 - 37 sec Basic Metabolic Panel Collection Time: 12/06/24 9:12 PM Result Value Ref Range SODIUM 140 134 - 146 mmol/L POTASSIUM 3.1 (L) 3.5 - 5.0 mmol/L CHLORIDE 103 98 - 109 mmol/L CARBON DIOXIDE 30 22 - 32 mmol/L ANION GAP 7 5 - 15 mmol/L BLOOD UREA NITROGEN 29 (H) 5 - 27 mg/dL CREATININE 1.63 (H) 0.40 - 1.00 mg/dL GLUCOSE 153 (H) 65 - 99 mg/dL CALCIUM 8.5 8.5 - 10.5 mg/dL EGFR Non-Race Dependent 31 (L) >=60 ml/min/1.73sq.m Troponin I, High Sensitivity Collection Time: 12/06/24 9:12 PM Narrative The following orders were created for panel order Troponin I, High Sensitivity. Procedure Abnormality Status --------- ------ Troponin I, High Sensiti...[[id number]] Abnormal Final result Troponin I, High Sensiti...[[id number]] Abnormal Final result Please view results for these tests on the individual orders. Magnesium Collection Time: 12/06/24 9:12 PM Result Value Ref Range MAGNESIUM 1.3 (L) 1.8 - 2.6 mg/dL B-type natriuretic peptide Collection Time: 12/06/24 9:12 PM Result Value Ref Range BNP 851 (H) <=100 pg/mL Lactate w/ Reflex Collection Time: 12/06/24 9:12 PM Result Value Ref Range LACTATE W/REFLEX 2.1 (H) 0.4 - 2.0 mmol/L Troponin I, High Sensitivity 0 Hour Collection Time: 12/06/24 9:12 PM Result Value Ref Range TROPONIN I, HIGH SENSITIVITY 18 (H) <16 ng/L Blood gas, venous Collection Time: 12/06/24 9:27 PM Result Value Ref Range Sample type VENOUS pH, Venous 7.372 7.320 - 7.420 pCO2, Venous 52.6 (H) 35.0 - 50.0 mmHg pO2, Venous 28 (L) 30 - 50 mmHg Base, Excess 4.0 (H) 0.0 - 2.0 mmol/L HCO3, Venous 30.6 (H) 20.0 - 24.0 mmol/L %O2 Saturation, Venous 51.0 % Vernell's test N/A Sample site N/A Insp. O2 conc. 36 % Source Of Oxygen NC Troponin I, High Sensitivity 1 Hour Collection Time: 12/06/24 10:12 PM Result Value Ref Range TROPONIN I, HIGH SENSITIVITY 18 (H) <16 ng/L Narrative Elevations of hs-Troponin may be due to causes other than myocardial ischemia. Recommend serial hs-Troponin testing be performed. For the initial evaluation and management of chest pain patients, refer to the algorithms linked below. Emergency Patient: [email or web address] Inpatient: [email or web address] Lactate w/ Reflex Collection Time: 12/07/24 1:02 AM Result Value Ref Range LACTATE W/REFLEX 0.8 0.4 - 2.0 mmol/L Narrative Result did not trigger repeat Lactate, re-order if needed. Comprehensive metabolic panel Collection Time: 12/07/24 4:49 AM Result Value Ref Range SODIUM 139 134 - 146 mmol/L POTASSIUM 3.9 3.5 - 5.0 mmol/L CHLORIDE 100 98 - 109 mmol/L CARBON DIOXIDE 25 22 - 32 mmol/L ANION GAP 14 5 - 15 mmol/L BLOOD UREA NITROGEN 31 (H) 5 - 27 mg/dL CREATININE 1.61 (H) 0.40 - 1.00 mg/dL GLUCOSE 216 (H) 65 - 99 mg/dL CALCIUM 8.3 (L) 8.5 - 10.5 mg/dL TOTAL PROTEIN 5.9 (L) 6.0 - 8.0 g/dL ALBUMIN 3.0 (L) 3.2 - 5.3 g/dL ALKALINE PHOSPHATASE 64 39 - 130 U/L AST 23 <=41 U/L ALT 28 <=31 U/L BILIRUBIN,TOTAL 1.2 0.3 - 1.2 mg/dL EGFR Non-Race Dependent 32 (L) >=60 ml/min/1.73sq.m Magnesium Collection Time: 12/07/24 4:49 AM Result Value Ref Range MAGNESIUM 2.0 1.8 - 2.6 mg/dL CBC auto differential Collection Time: 12/07/24 4:49 AM Result Value Ref Range WBC 5.4 4 - 11 x10E9/L RBC Count 3.60 (L) 3.8 - 5.2 X10E12/L Hemoglobin 10.1 (L) 11.7 - 15.5 g/dL Hematocrit 31.2 (L) 35 - 47 % MCV 87 80 - 100 fL MCH 28.1 27 - 34 pg MCHC 32.4 32 - 36 g/dL RDW 18.9 (H) 11.5 - 15 % Platelet Count 167 150 - 450 X10E9/L MPV 8.3 7 - 12 fL Neutrophils % 93.9 % Lymphocytes % 4.7 % Monocytes % 0.9 % Eosinophils % 0.1 % Basophils % 0.4 % Neutrophils Absolute (A) 5.1 1.5 - 6.6 10*3/uL Lymphocytes Absolute 0.3 (L) 1.0 - 3.5 10*3/uL Monocytes Absolute 0.0 0.0 - 0.9 10*3/uL Eosinophils Absolute 0.0 0.0 - 0.4 10*3/uL Basophils Absolute 0.0 0.0 - 0.2 10*3/uL Differential Type AUTOMATED DIFFERENTIAL Extra Tubes Collection Time: 12/07/24 4:49 AM Narrative The following orders were created for panel order Extra Tubes. Procedure Abnormality Status --------- ------ Light Blue Top[[id number]] Final result Please view results for these tests on the individual orders. Light Blue Top Collection Time: 12/07/24 4:49 AM Result Value Ref Range Extra Tube Auto Resulted Folate Collection Time: 12/07/24 4:49 AM Result Value Ref Range FOLIC ACID 17.5 >5.8 ng/mL Iron and TIBC Collection Time: 12/07/24 4:49 AM Result Value Ref Range IRON 27 (L) 50 - 170 ug/dL TRANSFERRIN 224 168 - 336 mg/dL IRON BINDING 314 250 - 425 ug/dL IRON SATURATION 9 (L) 15 - 50 % SATURATION Vitamin B12 Collection Time: 12/07/24 4:49 AM Result Value Ref Range VITAMIN B12 241 180 - 914 pg/mL Ferritin Collection Time: 12/07/24 4:49 AM Result Value Ref Range FERRITIN 33 11 - 307 ng/mL Vitamin D 25 hydroxy Collection Time: 12/07/24 4:49 AM Result Value Ref Range VITAMIN D 25 HYD TOT 11.4 (L) 30.0 - 100.0 ng/mL Narrative Vitamin D status 25 OH Vitamin D Deficiency <20 ng/mL Insufficiency 20-29 ng/mL Sufficiency 30-100 ng/mL Toxicity >100 ng/mL NOTE: A pediatric reference range has not been established by the solid tire tuber machine operator of this kit. The [place] [employer] recommends a Vitamin D level of = or >20ng/mL in infants and children. Bedside Glucose *Place/Obtain serum glucose if >500 per glucometer. Collection Time: 12/07/24 11:29 AM Result Value Ref Range Bedside Glucose (POC) 233 (H) 65 - 99 mg/dL Resp Pathogens Panel/SARS CoV-2 Collection Time: 12/07/24 1:08 PM Result Value Ref Range SARS COV 2 BY PCR Not Detected Not Detected ADENOVIRUS Not Detected Not Detected CORONAVIRUS 229E Not Detected Not Detected CORONAVIRUS HKU1 Not Detected Not Detected CORONAVIRUS NL63 Not Detected Not Detected CORONAVIRUS OC43 Not Detected Not Detected HUMAN METAPNEUVIRUS Not Detected Not Detected RHINO/ENTEROVIRUS Not Detected Not Detected INFLUENZA A Not Detected Not Detected INFLUENZA B Not Detected Not Detected PARAINFLUENZA 1 Not Detected Not Detected PARAINFLUENZA 2 Not Detected Not Detected PARAINFLUENZA 3 Not Detected Not Detected PARAINFLUENZA 4 Not Detected Not Detected RESP SYNCYTIAL VIRUS Not Detected Not Detected BORD PARAPERTUSSIS Not Detected Not Detected BORDETELLA PERTUSSIS Not Detected Not Detected CHLAM.PNEUMONIAE Not Detected Not Detected MYCOPLASMA PNEUMONIAE Not Detected Not Detected Narrative The [employer] Respiratory Panel 2.1 (RP2.1) is a multiplexed nucleic acid test intended for the simultaneous qualitative detection and differentiation of nucleic acid from multiple viral and bacterial respiratory organisms, including nucleic acid from Severe Acute Respiratory Syndrome Coronavirus 2 (SARS-CoV-2), in nasopharyngeal swabs obtained from individuals suspected of COVID-19 by their healthcare provider. Testing is limited to laboratories certified under the Clinical Laboratory Improvement Amendments of 1988 (CLIA), to perform high complexity or moderate complexity tests. SARS-CoV-2 RNA and nucleic acids from the other respiratory viral and bacterial organisms identified by this test are generally detectable in nasopharyngeal swabs during the acute phase of infection. The detection and identification of specific viral and bacterial nucleic acids from individuals exhibiting signs and/or symptoms of respiratory infection is indicative of the presence of the identified microorganism and aids in the diagnosis of respiratory infection if used in conjunction with other clinical and epidemiological information. Positive results are indicative of the presence of the identified organism, but do not rule out co-infection with other pathogens. The agent(s) detected by the [employer] RP2.1 may not be the definite cause of disease and clinical correlation with patient history and other diagnostic information is necessary to determine patient infection status. Negative results in the setting of a respiratory illness may be due to infection with pathogens not detected by this test, or lower respiratory tract infection that may not be detected by a nasopharyngeal specimen. Negative results do not preclude SARS-CoV-2 infection and should not be used as the sole basis for patient management decisions. Negative SHAE-CoV-2 results must be combined with clinical observations, patient history and epidemiological information. Negative results for other organisms identified by the test may require additional laboratory testing when evaluating a patient with possible respiratory tract infection. Bedside Glucose *Place/Obtain serum glucose if >500 per glucometer. Collection Time: 12/07/24 5:12 PM Result Value Ref Range Bedside Glucose (POC) 329 (H) 65 - 99 mg/dL Bedside Glucose *Place/Obtain serum glucose if >500 per glucometer. Collection Time: 12/07/24 9:28 PM Result Value Ref Range Bedside Glucose (POC) 246 (H) 65 - 99 mg/dL Urinalysis Collection Time: 12/08/24 3:14 AM Specimen: Urine, Clean Catch Midstream Result Value Ref Range COLOR Yellow Yellow, Colorless TURBIDITY Clear Clear SPECIFIC GRAVITY 1.020 1.003 - 1.035 NITRITE Negative Negative PH,URINE 6.5 5.0 - 8.5 LEUKOCYTE ESTERASE Trace (A) Negative PROTEIN 30 mg/dL (A) Negative KETONES (URINE) Negative Negative UROBILINOGEN 0.2 eu/dL 0.2 eu/dL, 1.0 eu/dL BILIRUBIN (URINE) Negative Negative BLOOD/HGB Negative Negative HYALINE CASTS 5 (H) 0 - 2 SQUAMOUS EPITHELIUM 6 (H) 0 - 5 W.B.CELLS 15 (H) 0 - 5 WBC CLUMPS Present (A) None GLUCOSE (URINE) Negative Negative, 250 mg/dL Comprehensive metabolic panel Collection Time: 12/08/24 4:33 AM Result Value Ref Range SODIUM 136 134 - 146 mmol/L POTASSIUM 4.3 3.5 - 5.0 mmol/L CHLORIDE 98 98 - 109 mmol/L CARBON DIOXIDE 28 22 - 32 mmol/L ANION GAP 10 5 - 15 mmol/L BLOOD UREA NITROGEN 37 (H) 5 - 27 mg/dL CREATININE 1.92 (H) 0.40 - 1.00 mg/dL GLUCOSE 209 (H) 65 - 99 mg/dL CALCIUM 8.5 8.5 - 10.5 mg/dL TOTAL PROTEIN 6.2 6.0 - 8.0 g/dL ALBUMIN 3.3 3.2 - 5.3 g/dL ALKALINE PHOSPHATASE 66 39 - 130 U/L AST 29 <=41 U/L ALT 31 <=31 U/L BILIRUBIN,TOTAL 0.7 0.3 - 1.2 mg/dL EGFR Non-Race Dependent 26 (L) >=60 ml/min/1.73sq.m Magnesium Collection Time: 12/08/24 4:33 AM Result Value Ref Range MAGNESIUM 1.9 1.8 - 2.6 mg/dL CBC auto differential Collection Time: 12/08/24 4:33 AM Result Value Ref Range WBC 6.3 4 - 11 x10E9/L RBC Count 3.61 (L) 3.8 - 5.2 X10E12/L Hemoglobin 10.3 (L) 11.7 - 15.5 g/dL Hematocrit 30.9 (L) 35 - 47 % MCV 86 80 - 100 fL MCH 28.4 27 - 34 pg MCHC 33.2 32 - 36 g/dL RDW 18.8 (H) 11.5 - 15 % Platelet Count 166 150 - 450 X10E9/L MPV 8.7 7 - 12 fL Neutrophils % 91.0 % Lymphocytes % 5.5 % Monocytes % 3.3 % Eosinophils % 0.0 % Basophils % 0.2 % Neutrophils Absolute (A) 5.7 1.5 - 6.6 10*3/uL Lymphocytes Absolute 0.3 (L) 1.0 - 3.5 10*3/uL Monocytes Absolute 0.2 0.0 - 0.9 10*3/uL Eosinophils Absolute 0.0 0.0 - 0.4 10*3/uL Basophils Absolute 0.0 0.0 - 0.2 10*3/uL Differential Type AUTOMATED DIFFERENTIAL Extra Tubes Collection Time: 12/08/24 4:33 AM Narrative The following orders were created for panel order Extra Tubes. Procedure Abnormality Status --------- ------ Light Blue Top[[id number]] Final result Please view results for these tests on the individual orders. Light Blue Top Collection Time: 12/08/24 4:33 AM Result Value Ref Range Extra Tube Auto Resulted Bedside Glucose *Place/Obtain serum glucose if >500 per glucometer. Collection Time: 12/08/24 11:35 AM Result Value Ref Range Bedside Glucose (POC) 191 (H) 65 - 99 mg/dL Radiology X-ray chest 1 view Result Date: 12/07/2024 Narrative: CLINICAL INFORMATION: Shortness of breath COMPARISON: Chest radiograph dated 12/06/2024. VIEWS: 1. FINDINGS: Stable cardiomegaly. Moderate right pleural effusion has increased from prior exam. Stable right basilar atelectasis. No new infiltrates. No pneumothorax. No free air below the diaphragm. IMPRESSION: Moderate right pleural effusion has increased from prior exam. Stable right basilar atelectasis. Finalized by Lou Gan MD on 12/07/2024 10:38 AM X-ray chest 1 view Result Date: 12/06/2024 Narrative: XR CHEST 1 VW HISTORY: Dyspnea COMPARISON: Chest radius 12/25/2023, 10/19/2023, and 10/10/2023. FINDINGS: Patient is rotated to the right. Enlarged cardiomediastinal silhouette. Worsening pulmonary vascular congestion with increasing size of right pleural effusion. Hazy left basilar airspace opacities. IMPRESSION: * Cardiomegaly with interstitial edema. There is a moderate right pleural effusion with adjacent atelectasis. 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 Computer aided detection was utilized. FINDINGS: The breasts are heterogeneously dense, which may obscure small masses. There are no suspicious masses, calcifications, or areas of architectural distortion. IMPRESSION: No mammographic evidence of malignancy. BI-RADS: BI-RADS 1 - Negative RECOMMENDATION: Routine screening mammogram in 1 year. Given personal history of malignancy, consider supplemental screening with MRI. RISK ASSESSMENT: TC Lifetime risk: --%. Tyrer-Cuzick score not calculated. The TC risk model does not apply to patients with a personal history of breast malignancy, those over the age of 84, male, or transgender patients. Finalized by Thien Ulrich MD on 11/20/2024 2:24 PM 1 c MAMM 1 YR FDA Accredited Performing Facility: [facility] - Mammography/DEXA Imaging [address] [address] DISCHARGE ASSESSMENT & PLAN Transfer to [facility] for thoracentesis DISCHARGE INSTRUCTION Disposition: [facility] Condition: Stable Activity: activity as tolerated Diet: Adult diet Regular Texture; Consistent Carb 210 grams (1800 kcal) Discharge Medications: Medication List ASK your doctor about these medications Instructions Last Dose Given Next Dose Due alendronate 70 mg tablet Commonly known as: FOSAMAX TAKE 1 TABLET BY MOUTH EVERY 7 DAYS FOR IN A.M. WITH WATER ON EMPTY STOMACH, NOTHING ELSE BY MOUTH AND REMAIN UPRIGHT FOR 30MIN aspirin 81 mg Take 1 tablet (81 mg total) by mouth in the morning. atorvastatin 80 mg tablet Commonly known as: LIPITOR Take 0.5 tablets (40 mg total) by mouth in the morning. b complex vitamins capsule TAKE 1 CAPSULE BY MOUTH EVERY DAY IN THE MORNING DULoxetine 20 mg capsule Commonly known as: CYMBALTA Take 1 capsule (20 mg total) by mouth in the morning. furosemide 40 mg tablet Commonly known as: LASIX Take 0.5 tablets (20 mg total) by mouth daily. insulin glargine 100 unit/mL injection Commonly known as: LANTUS Inject 0.2 mL (20 Units total) under the skin in the morning. JARDIANCE 10 mg tablet tablet Generic drug: empagliflozin Take 1 tablet (10 mg total) by mouth in the morning. letrozole 2.5 mg chemo tablet Commonly known as: FEMARA Take 1 tablet by mouth daily levothyroxine 50 MCG tablet Commonly known as: SYNTHROID, LEVOTHROID Take 1 tablet (50 mcg total) by mouth in the morning. metFORMIN 1000 mg tablet Commonly known as: GLUCOPHAGE Take 1 tablet (1,000 mg total) by mouth in the morning and 1 tablet (1,000 mg total) in the evening. Take with meals. metoprolol tartrate 25 mg tablet Commonly known as: LOPRESSOR Take 0.5 tablets (12.5 mg total) by mouth in the morning. pregabalin 100 mg capsule Commonly known as: LYRICA Take 1 capsule (100 mg total) by mouth in the morning and 1 capsule (100 mg total) before bedtime. primidone 50 mg tablet Commonly known as: MYSOLINE Take 1 tablet (50 mg) twice daily rOPINIRole 5 mg tablet Commonly known as: REQUIP Take 1 tablet (5 mg total) by mouth in the morning and 1 tablet (5 mg total) at noon and 1 tablet (5 mg total) in the evening. >30 minutes were spent on discharging this patient. Mauro Toney, LATRELL-TEJINDER, 12/08/2024 3:03 PM [facility] Internal Medicine 7AM-7PM & 7PM-7AM: EpicChat or page through [employer]. This note is dictated with the use of M*Modal. Please note that this dictation was completed with computer voice recognition software. Quite often unanticipated grammatical, syntax, homophones, and other interpretive errors are inadvertently transcribed by the computer software. Please disregard these errors. Please excuse any errors that have escaped final proofreading. ELVER Peterson 12/08/24 1505 Physician Attestation: I have reviewed the above note authored by the Advance Practice Provider (DARYL) including history, review of systems, physical examination, medical decision making and agree with the assessment & plan. I have personally performed a face to face diagnostic evaluation on this patient. I have reviewed all laboratory findings and imaging reports/films. I have independently evaluated the patient and repeated zhang portions of the physical exam. I agree with the DARYL plan as above, unless otherwise noted. MIGUEL GOMEZ MD documented in this encounter [facility] 12-08-2024 Plan of care note Problem: Pain Goal: Patient goal is pain score less than 4, able to rest, and participant in treatment plan as appropriate Description: INTERVENTIONS: 1. Encourage patient or legal communications representative to report early pain and ask for pain medicine when needed 2. Assess pain using appropriate pain scale and include the scale used when documenting 3. Administer analgesics based on type and severity of pain and evaluate response within appropriate time frame 4. Implement non-pharmacological measures as appropriate and evaluate response 5. Consider cultural and social influences on pain and pain management 6. Notify LIP if interventions ineffective or patient reports new pain 7. Monitor vital signs including pulse ox, end-tidal CO2 based on pain intervention 8. Reassess pain per policy 9. Teach patient or legal communications representative interventions for comforting Outcome: Progressing Note: Evaluation of progress towards goal: Pt able to report pain according to 0/10 pain scale. Medicating patient for pain per orders. Problem: Safety Goal: Patient will be injury free during hospitalization Description: INTERVENTIONS: 1. Assess patient's risk for falls and implement fall prevention plan of care per policy 2. Provide and maintain a safe environment 3. Proper use of double Identifiers 4. Medication administration using the 5 rights 5. Hand hygiene 6. Specimens are labeled at the bedside 7. Instruct patient/ patient communications representative about use of safety devices 8. Include patient/ patient communications representative in decisions related to safety Outcome: Progressing Note: Evaluation of progress towards goal: Pt's risk for falls assessed and fall prevention implemented as needed, safe environment provided and maintained, hand hygiene completed. Problem: Infection Goal: Absence of infection during hospitalization Description: INTERVENTIONS 1. Assess and monitor for signs and symptoms of infection. 2. Monitor lab/diagnostic results. 3. Monitor all insertion sites i.e., indwelling lines, tubes and drains. 4. Monitor endotracheal (as able) and nasal secretions for changes in amount and color. 5. Administer medications as ordered. 6. Instruct and encourage patient and family to use good hand hygiene technique. 7. Identify and instruct patient/patient communications representative in use of appropriate isolation precautions for identified infection/symptoms. 8. Provide and discuss with patient/patient communications representative on educational MDRO sheet. 9. Encourage and monitor nutritional status daily and consult search engine optimization strategist if indicated. 10. Implement neutropenic guidelines as needed. Outcome: Progressing Note: Evaluation of progress towards goal: Patient VS WNL, remains afebrile for shift. Problem: Moderate - High Risk Fall Score Description: Alfaro Fall Score of =/> 25 or indicated by [facility] Rehab Assessment Goal: Patient should be free from fall Description: Interventions: 1. [place] to environment 2. Hourly rounds addressing the 4 P's (Pain, Positioning, Possessions, Potty) 3. Clear area of hazards (spills, clutter, electrical cords, unnecessary equipment) 4. Place equipment (bed & TV controls, call light, phone, urinal) within reach 5. Encourage patient to wear glasses and hearing aides as appropriate 6. Maintain bed in lowest position 7. Lock wheels on bed/wheelchair 8. Provide adequate lighting, including night light 9. Assess need for additional bedding, food/fluids, pain med's prior to sleep/routinely 10. Provide gripper slippers or personal non-skid footwear 11. Teach patient and patient communications representative to maintain environment for safety and engage in all aspects of fall prevention program 12. Remind patient to call for help before getting out of bed 13. Initiate bed/chair/exit alarms supportive devices as appropriate, (chair wedge, no-skid floor mat, raised edge mattress, hip protectors) 14. Locate patient bed assignment for optimal visualization 15. Evaluate and identify Safe Patient Handling Equipment needs 16. Provide supervision when out of bed or chair 17. Utilize gait belt as needed to assist with ambulation 18. Place adaptive equipment (cane, walker) within reach 19. Request patient communications representative bring adaptive equipment/mobility aids from home or obtain and provide as needed 20. Consult pharmacy regarding effects of med's affecting mobility, cognition, and alternatives 21. Obtain physician order for PT if risk factors associated with mobility are present 22. Obtain physician order for OT as appropriate 23. Utilize diversional activities 24. Educate patient and patient communications representative how to maintain a safe environment during visitation times (notify nurse prior to leaving bedside) 25. Consider appropriateness of medical or non-medical orderly 26. Set up voiding schedule as appropriate (every 2 hours) Outcome: Progressing Note: Evaluation of progress towards goal: Pt remains free from falls or accidental injury during stay. Fall prevention measures in place. Hourly rounding per RN and maintained. [facility] [employer] 12-07-2024 Progress note Formatting of t his note is different from the original. Physical Therapy Evaluation Discharge Recommendations for Safe Patient Transition Discharge Recommendations: Post acute - moderate Post Acute Moderate Rehab Needs: Recommend moderate intensity rehab, Tolerate 1-2 hrs of therapy 3-5 days/wk, Subacute or chronic functional impairment Current Impairments Informing Therapy Recommendation: Ambulation status/safety, Fall risk, Endurance level Engineering Designer Support for-: Mobility Deficits, ADL Deficits Past Medical History: Diagnosis Date Arthritis Breast cancer ([facility] [place]) 2001 LT Breast cancer ([facility] [place]) 07/26/2021 RIGHT COPD (chronic obstructive pulmonary disease) ([facility] [place]) Diabetes ([facility] [place]) Diabetes mellitus type 2, controlled ([facility] [place] HTN (hypertension) Hyperlipidemia Hypothyroidism [place] (myocardial infarction) ([facility] [place] Obesity Pneumonia Restless leg Stage 3a chronic kidney disease ([facility] [place]) 07/18/2022 Varicella ? Visual impairment Past Surgical History: Procedure Laterality Date APPENDECTOMY BREAST BIOPSY BREAST LUMPECTOMY Left 2001 RADIATION AND CHEMO BREAST LUMPECTOMY Right 08/12/2021 CATARACT EXTRACTION CHOLECYSTECTOMY COLECTOMY COLONOSCOPY 12/15/2015 Dr. Cortez COLONOSCOPY N/A 01/13/2021 Performed by Wilberto Hughes DO at [facility] EYE SURGERY Cataracts HYSTERECTOMY LYMPH NODE BIOPSY MASTECTOMY Right MASTECTOMY W/ SENTINEL NODE BIOPSY Right 09/02/2021 OOPHORECTOMY REMOVAL PORT A CATH N/A 11/12/2023 Performed by Bo Rincon MD at [facility] SURGERY REPAIR HERNIA VENTRAL. incarcerated N/A 08/16/2018 Performed by Kemar Beltre MD at [facility] SKIN BIOPSY UMBILICAL HERNIA REPAIR 6 Clicks: Basic Mobility Turning from your back to your side while in a flat bed without using bed rails?: None Moving from lying on your back to sitting on side of flat bed without using bed rails?: None Moving to and from bed to a chair (including w/c)?: A little Standing up from a chair using your arms (e.g. w/c or bedside chair)?: A little To walk in hospital room?: A little Climbing 3-5 steps with a railing?: A little Scoring 6 Clicks: Basic Mobility Raw Score: 20 CMS G Code Modifier: CJ Therapy Plan Need for skilled Physical Therapy to address deficits in functional mobility due to a status decline resulting from COPD exacerbation. PT Treatment/Interventions: ADL retraining, Functional transfer training, LE strengthening/ROM, Endurance training, Balance, Stair training, Bed mobility, Gait training, Functional activities, Neuromuscular reeducation PT Frequency: 4-5days/week PT Duration: 10 days Assessment Patient Assessment Therapy Problem List: Decreased ADL status, Decreased balance, Decreased endurance, Decreased mobility, Decreased LE strength Patient Response to Treatment: Tolerated evaluation without adverse reaction Mood/Affect: Appropriate for circumstances Rehab Prognosis: Good, With continued PT status post acute discharge Visit RN Communication: Yes Medical Record Reviewed: Yes PT Type of Visit: Evaluation Precautions Activity: early mobility pass, OK to treat per RN Sade Equipment: Rolling walker, gait belt, non-skid socks, pure wick, telemetry, oxygen Weight Bearing Status: full Telemetry/Panel Edge Sealer: Yes Oxygen Used: 5L via NC Other: fall risk Subjective Physical Therapy Comments: Pt states she was going to start therapy for her legs - referred by her neurologist. Has not started that yet. Pt reports using a walker mostly at home. Pain Assessment Pain Assessment: No/denies pain Home Living Type of Home: Apartment Home Layout: One level Stairs to Enter: 2 Hand Rails: Bilateral Bathroom Shower/Tub: Tub/shower unit Bathroom Toilet: Standard Bathroom Equipment: Grab bars in shower (no chair/bench - stands to shower) Bathroom Accessibility: Accessible via walker (usually leaves the walker outside the bathroom) Home Equipment: Rolling walker, Cane, Home oxygen (toilet riser, pedal bike and treadmill for exercise, 3 L O2 at home) Prior Function Lives With: Alone Receives Help From: Family Level of Mobility: Independent with ADLs and functional transfers or gait (drives) Homemaking Assistance: Needs assistance (cleaning lady comes every couple of weeks) ADL / IADL Hand Dominance: Right Hearing / Speech / Vision Hearing: Within Functional Limits Speech: Within Functional Limits Current Vision: Wears glasses all the time, Wears glasses for distance only (except for reading) Cognition Overall Cognitive Status: Within Functional Limits Sensation Overall Sensation Status: (numbness 3-5th digits R hand, B feet - pt relates this to neuropathy) Perception / Proprioception Overall Status: Within Functional Limits Bed Mobility Supine to Sit: Stand by assist Sit to Supine: Stand by assist Other: sup <>sit with HOB elevated, used bed rail Transfers Sit to Stand: Contact guard assist Stand to Sit: Contact guard assist Gait Base of Support: Within Functional Limits Pattern: Decreased ginger, Forward trunk Gait Assistance: Contact guard assist Assistive Device: Rolling walker Gait Distance: 15ft x2 Limiting Factors to Gait: Fatigue, Decreased safety Included Uneven Surface: Yes 2 Turns: Yes Other: Pt AMB to bathroom with rolling walker, CGA. AMB back to bed after toileting. Balance Sitting Balance: Static: Good Sitting Balance: Dynamic: Good Standing Balance: Static: Fair Standing Balance: Dynamic: Fair Other: Stood at walker in bathroom and MIN A provided to [facility] brief for toileting. Use of AD for AMB due to balance deficits and weakness. RLE Assessment: (RLE strength 3+/5) LLE Assessment: (LLE strength 3+/5) Activity Tolerance Endurance: Tolerates <30 minutes activity WITHOUT vital sign changes Pre-Activity SpO2: 94 % During Activity SpO2 : 83 % Post-Activity SpO2: 97 % Other: Pt had a drop is SpO2 upon initial standing; sat back down with quick recovery into the upper 90s. Able to continue with AMB with O2 maintained in 90s Plan Physical Therapy Care Plan Physical Therapy Care Plan (Active) Template: PT - Physical Therapy Problem: Activity Tolerance Dates: Start: 12/07/24 Disciplines: PT Goal: Tolerate 30 minutes of activity WITH rest breaks Dates: Start: 12/07/24 Expected End: 12/16/24 Disciplines: PT Problem: Gait Dates: Start: 12/07/24 Disciplines: PT Goal: Patient will perform gait with Supervision Dates: Start: 12/07/24 Expected End: 12/16/24 Description: Pt will AMB 100 ft with least restrictive device with supervision to increase functional mobility and allow AMB in the home. Disciplines: PT Problem: Stairs/Curb Dates: Start: 12/07/24 Disciplines: PT Goal: Patient will perform stairs/curb with Supervision Dates: Start: 12/07/24 Expected End: 12/16/24 Description: To allow safe entry/exit to the home Disciplines: PT Problem: Standing Balance Dates: Start: 12/07/24 Disciplines: PT Goal: Improve balance to good Dates: Start: 12/07/24 Expected End: 12/16/24 Description: To decrease risk of falls Disciplines: PT Problem: Strength Dates: Start: 12/07/24 Disciplines: PT Goal: Improve strength Dates: Start: 12/07/24 Expected End: 12/16/24 Description: Pt will tolerate exercises for LE strengthening to increase strength for transfers and gait. Disciplines: PT Problem: Transfers Dates: Start: 12/07/24 Disciplines: PT Goal: Patient will perform transfers Independently Dates: Start: 12/07/24 Expected End: 12/16/24 Description: To increase overall functional mobility Disciplines: PT Physical Therapy Care Plan (Resolved) There are no resolved problems. Principal Problem: Acute respiratory failure with hypoxia (CMS-HCC) Active Problems: Stage 3a chronic kidney disease (CMS-HCC) Obesity (BMI 30-39.9) Benign essential HTN Diabetes mellitus (CMS-HCC) Mixed hyperlipidemia Hypokalemia Hypomagnesemia Cosigned by Danie Chavez MD at 12/07/2024 1:01 PM EDT [employer] 12-07-2024 History and physical note Images from the original note were not included. [facility] [address] [facility] [id number] Hospital Medicine History & Physical Patient: Kay Ly Date of : 1940 Room: PCP: SHAIKH ISELA MD Admission date: 12/06/2024 9:04 PM Encounter date: 12/07/24 Hospital Day: 2 SUBJECTIVE Kay Ly is a 84 y.o. female who presents with shortness of breath. Was having shortness of breath at home with associated nausea and dizziness. Also noted that her pulse ox was high 80s or low 90s. Has a history of COPD, diabetes, , hypothyroidism, hypertension, CVA chronic kidney disease. Patient is dependent on 3 L at home. Chest x-ray revealed cardiomegaly with interstitial edema. Moderate right pleural effusion with adjacent atelectasis. Lab work remarkable for hemoglobin 10.8, creatinine 1.63, glucose 153, potassium 3.1, magnesium 1.3, BNP 851, troponin 18, 1 hour 18, normal pH, respiratory pathogen panel negative. Patient admitted for COPD exacerbation. Allergies: Lisinopril Prior to Admission medications Medication Sig Start Date End Date Taking? Authorizing Provider alendronate (FOSAMAX) 70 mg tablet TAKE 1 TABLET BY MOUTH EVERY 7 DAYS FOR IN A.M. WITH WATER ON EMPTY STOMACH, NOTHING ELSE BY MOUTH AND REMAIN UPRIGHT FOR 30MIN 08/27/24 Sebastian Chau, PASTEURIZER[employer]BODY STRAIGHTENER aspirin 81 mg Take 1 tablet (81 mg total) by mouth in the morning. Not In System Ref Prov atorvastatin (LIPITOR) 80 mg tablet Take 0.5 tablets (40 mg total) by mouth in the morning. Not In System Ref Prov b complex vitamins capsule TAKE 1 CAPSULE BY MOUTH EVERY DAY IN THE MORNING 11/02/24 Kayy Hines PA-C DULoxetine (CYMBALTA) 20 mg capsule Take 1 capsule (20 mg total) by mouth in the morning. Not In System Ref Prov empagliflozin (JARDIANCE) 10 mg tablet tablet Take 1 tablet (10 mg total) by mouth in the morning. Not In System Ref Prov furosemide (LASIX) 40 mg tablet Take 0.5 tablets (20 mg total) by mouth daily. 05/30/22 Not In System Ref Prov insulin glargine (LANTUS) 100 unit/mL injection Inject 0.2 mL (20 Units total) under the skin in the morning. 08/08/21 Not In System Ref Prov letrozole (FEMARA) 2.5 mg chemo tablet Take 1 tablet by mouth daily 06/02/24 Sebastian Chau, PASTEURIZER[employer]BODY STRAIGHTENER levothyroxine (SYNTHROID, LEVOTHROID) 50 MCG tablet Take 1 tablet (50 mcg total) by mouth in the morning. Not In System Ref Prov metFORMIN (GLUCOPHAGE) 1000 mg tablet Take 1 tablet (1,000 mg total) by mouth in the morning and 1 tablet (1,000 mg total) in the evening. Take with meals. Not In System Ref Prov metoprolol tartrate (LOPRESSOR) 25 mg tablet Take 0.5 tablets (12.5 mg total) by mouth in the morning. Not In System Ref Prov pregabalin (LYRICA) 100 mg capsule Take 1 capsule (100 mg total) by mouth in the morning and 1 capsule (100 mg total) before bedtime. 08/13/24 Blanca Rosales MD primidone (MYSOLINE) 50 mg tablet Take 1 tablet (50 mg) twice daily 12/05/24 Kayy Hines PA-C rOPINIRole (REQUIP) 5 mg tablet Take 1 tablet (5 mg total) by mouth in the morning and 1 tablet (5 mg total) at noon and 1 tablet (5 mg total) in the evening. Not In System Ref Prov Code Status: Full Code Past Medical History: Patient has a past medical history of Arthritis, Breast cancer ([facility]) (2001), Breast cancer ([facility]) (07/26/2021), COPD (chronic obstructive pulmonary disease) ([facility] [place]), Diabetes ([facility] [place]), Diabetes mellitus type 2, controlled ([facility] [place]), HTN (hypertension), Hyperlipidemia, Hypothyroidism, [place] (myocardial infarction) ([facility] [place] Obesity, Pneumonia, Restless leg, Stage 3a chronic kidney disease ([facility]) (07/18/2022), Varicella (?), and Visual impairment. Past Surgical History: Patient has a past surgical history that includes Hysterectomy; Cataract extraction; Cholecystectomy; Colectomy; Colonoscopy (12/15/2015); Oophorectomy; Breast lumpectomy (Left, 2001); Breast biopsy; Ventral hernia repair (N/A, 08/16/2018); Colonoscopy (N/A, 01/13/2021); Breast lumpectomy (Right, 08/12/2021); Mastectomy w/ sentinel node biopsy (Right, 09/02/2021); Mastectomy (Right); Catheter Removal (N/A, 11/12/2023); Umbilical hernia repair; Lymph node biopsy; Skin biopsy; Appendectomy; and Eye surgery. Family History: Patient's family history includes Arthritis in her father; Jose L Breast Cancer in her daughter; Breast cancer in her sister; Breast cancer (age of onset: 56) in her daughter; Depression in her sister; Heart attack in her father; Hypertension in her father and mother; Lung cancer (age of onset: 80) in her father. Social History: Patient reports that she quit smoking about 20 months ago. Her smoking use included cigarettes. She started smoking about 31 years ago. She has a 30 pack-year smoking history. She has never used smokeless tobacco. She reports current alcohol use of about 2.0 standard drinks of alcohol per week. She reports that she does not use drugs. Review of Systems Constitutional: Negative for chills and fever. HENT: Negative for ear pain and sore throat. Eyes: Negative for pain and visual disturbance. Respiratory: Positive for cough and shortness of breath. Cardiovascular: Negative for chest pain and palpitations. Gastrointestinal: Negative for abdominal pain and vomiting. Genitourinary: Negative for dysuria and hematuria. Musculoskeletal: Negative for arthralgias and back pain. Skin: Negative for color change and rash. Neurological: Positive for dizziness, weakness and light-headedness. Negative for seizures and syncope. All other systems reviewed and are negative. OBJECTIVE BP 107/56 Pulse 63 Temp 36.4 C (97.5 F) (Oral) Resp 18 Ht 157.5 cm (5' 2 ) Wt 77 kg (169 lb 11.2 oz) SpO2 93% BMI 31.04 kg/m Temp: [36.4 C (97.5 F)-36.9 C (98.4 F)] 36.4 C (97.5 F) Pulse: [63-87] 63 Resp: [18-23] 18 BP: (98-114)/(56-72) 107/56 SpO2: [91 %-98 %] 93 % O2 Device: Nasal cannula O2 Flow Rate (L/min): [4 L/min-5 L/min] 5 L/min No intake or output data in the 24 hours ending 12/07/24 0830 Physical Exam Vitals and nursing note reviewed. Constitutional: Appearance: She is well-developed. She is obese. HENT: Head: Normocephalic and atraumatic. Nose: Nose normal. Eyes: Pupils: Pupils are equal, round, and reactive to light. Cardiovascular: Rate and Rhythm: Normal rate and regular rhythm. Heart sounds: Normal heart sounds. No murmur heard. Pulmonary: Effort: Pulmonary effort is normal. No respiratory distress. Breath sounds: Examination of the right-lower field reveals decreased breath sounds. Examination of the left-lower field reveals decreased breath sounds. Decreased breath sounds, wheezing and rhonchi present. Abdominal: General: Bowel sounds are normal. Palpations: Abdomen is soft. Tenderness: There is no abdominal tenderness. Musculoskeletal: General: Normal range of motion. Cervical back: Neck supple. Right lower leg: Edema present. Left lower leg: Edema present. Lymphadenopathy: Cervical: No cervical adenopathy. Skin: General: Skin is warm and dry. Findings: No rash. Neurological: Mental Status: She is alert and oriented to person, place, and time. Cranial Nerves: No cranial nerve deficit. Motor: Weakness present. Medications Scheduled: heparin (porcine), 5,000 Units, subcutaneous, Q8H SHIVANI insulin lispro, 2-10 Units, subcutaneous, TID with meals insulin lispro, 2-8 Units, subcutaneous, Nightly ipratropium-albuteroL, 3 mL, nebulization, Q4H While awake methylPREDNISolone sod suc(PF), 40 mg, intravenous, Q12H sodium chloride, 3 mL, intravenous, Q12H SHIVANI Infusions: sodium chloride 0.9 %, 10 mL/hr As Needed: acetaminophen dextrose dextrose 50 % in water (D50W) glucagon (human recombinant) magnesium sulfate magnesium sulfate ondansetron ODT potassium chloride OR potassium chloride OR potassium chloride IV (Adult) sennosides-docusate sodium sodium chloride sodium chloride 0.9 % Allergies: Lisinopril Labs Recent Results (from the past 24 hours) SARS/FLU A+B/RSV by NAAT/Molecular (M4RT Collection Tube) Collection Time: 12/06/24 9:03 PM Result Value Ref Range FLU A PCR Negative Negative FLU B PCR Negative Negative RSV BY PCR Negative Negative SARS COV 2 BY PCR Not Detected Not Detected Narrative The Xpert Xpress SARS-CoV-2/Flu/RSV Plus test is a rapid, multiplexed real-time RT-PCR test intended for the simultaneous qualitative detection and differentiation of SARS-CoV-2, influenza A, influenza B and respiratory syncytial virus (RSV) viral RNA from individuals suspected of respiratory viral infection consistent with COVID-19 by Their healthcare provider. This test has not been validated in asymptomatic patients. The Xpert Xpress SARS-CoV-2 test is intended for use by qualified and trained operators who are performing tests using either Company or [employer] systems and is limited to laboratories that [...] acute phase of infection. Positive results are Indicative of the presence of the identified virus, [...] specimen repeat. Fact Sheet for Healthcare Providers: https://www.fda.gov/media/536257/ download Fact Sheet for Patients: https://www.fda.gov/media/128137/ download CBC auto differential Collection Time: 12/06/24 9:12 PM Result Value Ref Range WBC 5.9 4 - 11 x10E9/L RBC Count 3.90 3.8 - 5.2 X10E12/L Hemoglobin 10.8 (L) 11.7 - 15.5 g/dL Hematocrit 33.3 (L) 35 - 47 % MCV 85 80 - 100 fL MCH 27.7 27 - 34 pg MCHC 32.5 32 - 36 g/dL RDW 19.1 (H) 11.5 - 15 % Platelet Count 191 150 - 450 X10E9/L MPV 8.4 7 - 12 fL Neutrophils % 82.1 % Lymphocytes % 9.9 % Monocytes % 4.9 % Eosinophils % 2.1 % Basophils % 1.0 % Neutrophils Absolute (A) 4.8 1.5 - 6.6 10*3/uL Lymphocytes Absolute 0.6 (L) 1.0 - 3.5 10*3/uL Monocytes Absolute 0.3 0.0 - 0.9 10*3/uL Eosinophils Absolute 0.1 0.0 - 0.4 10*3/uL Basophils Absolute 0.1 0.0 - 0.2 10*3/uL Differential Type AUTOMATED DIFFERENTIAL Protime & INR Collection Time: 12/06/24 9:12 PM Result Value Ref Range PROTIME 12.6 9.8 - 13.2 sec INR 1.1 0.9 - 1.2 APTT Collection Time: 12/06/24 9:12 PM Result Value Ref Range APTT 31 26 - 37 sec Basic Metabolic Panel Collection Time: 12/06/24 9:12 PM Result Value Ref Range SODIUM 140 134 - 146 mmol/L POTASSIUM 3.1 (L) 3.5 - 5.0 mmol/L CHLORIDE 103 98 - 109 mmol/L CARBON DIOXIDE 30 22 - 32 mmol/L ANION GAP 7 5 - 15 mmol/L BLOOD UREA NITROGEN 29 (H) 5 - 27 mg/dL CREATININE 1.63 (H) 0.40 - 1.00 mg/dL GLUCOSE 153 (H) 65 - 99 mg/dL CALCIUM 8.5 8.5 - 10.5 mg/dL EGFR Non-Race Dependent 31 (L) >=60 ml/min/1.73sq.m Troponin I, High Sensitivity Collection Time: 12/06/24 9:12 PM Narrative The following orders were created for panel order Troponin I, High Sensitivity. Procedure Abnormality Status --------- ------ Troponin I, High Sensiti...[[id number]] Abnormal Final result Troponin I, High Sensiti...[[id number]] Abnormal Final result Please view results for these tests on the individual orders. Magnesium Collection Time: 12/06/24 9:12 PM Result Value Ref Range MAGNESIUM 1.3 (L) 1.8 - 2.6 mg/dL B-type natriuretic peptide Collection Time: 12/06/24 9:12 PM Result Value Ref Range BNP 851 (H) <=100 pg/mL Lactate w/ Reflex Collection Time: 12/06/24 9:12 PM Result Value Ref Range LACTATE W/REFLEX 2.1 (H) 0.4 - 2.0 mmol/L Troponin I, High Sensitivity 0 Hour Collection Time: 12/06/24 9:12 PM Result Value Ref Range TROPONIN I, HIGH SENSITIVITY 18 (H) <16 ng/L Blood gas, venous Collection Time: 12/06/24 9:27 PM Result Value Ref Range Sample type VENOUS pH, Venous 7.372 7.320 - 7.420 pCO2, Venous 52.6 (H) 35.0 - 50.0 mmHg pO2, Venous 28 (L) 30 - 50 mmHg Base, Excess 4.0 (H) 0.0 - 2.0 mmol/L HCO3, Venous 30.6 (H) 20.0 - 24.0 mmol/L %O2 Saturation, Venous 51.0 % Vernell's test N/A Sample site N/A Insp. O2 conc. 36 % Source Of Oxygen NC Troponin I, High Sensitivity 1 Hour Collection Time: 12/06/24 10:12 PM Result Value Ref Range TROPONIN I, HIGH SENSITIVITY 18 (H) <16 ng/L Narrative Elevations of hs-Troponin may be due to causes other than myocardial ischemia. Recommend serial hs-Troponin testing be performed. For the initial evaluation and management of chest pain patients, refer to the algorithms linked below. Emergency Patient: [email or web address] [email or web address]: [email or web address] Lactate w/ Reflex Collection Time: 12/07/24 1:02 AM Result Value Ref Range LACTATE W/REFLEX 0.8 0.4 - 2.0 mmol/L Narrative Result did not trigger repeat Lactate, re-order if needed. Comprehensive metabolic panel Collection Time: 12/07/24 4:49 AM Result Value Ref Range SODIUM 139 134 - 146 mmol/L POTASSIUM 3.9 3.5 - 5.0 mmol/L CHLORIDE 100 98 - 109 mmol/L CARBON DIOXIDE 25 22 - 32 mmol/L ANION GAP 14 5 - 15 mmol/L BLOOD UREA NITROGEN 31 (H) 5 - 27 mg/dL CREATININE 1.61 (H) 0.40 - 1.00 mg/dL GLUCOSE 216 (H) 65 - 99 mg/dL CALCIUM 8.3 (L) 8.5 - 10.5 mg/dL TOTAL PROTEIN 5.9 (L) 6.0 - 8.0 g/dL ALBUMIN 3.0 (L) 3.2 - 5.3 g/dL ALKALINE PHOSPHATASE 64 39 - 130 U/L AST 23 <=41 U/L ALT 28 <=31 U/L BILIRUBIN,TOTAL 1.2 0.3 - 1.2 mg/dL EGFR Non-Race Dependent 32 (L) >=60 ml/min/1.73sq.m Magnesium Collection Time: 12/07/24 4:49 AM Result Value Ref Range MAGNESIUM 2.0 1.8 - 2.6 mg/dL CBC auto differential Collection Time: 12/07/24 4:49 AM Result Value Ref Range WBC 5.4 4 - 11 x10E9/L RBC Count 3.60 (L) 3.8 - 5.2 X10E12/L Hemoglobin 10.1 (L) 11.7 - 15.5 g/dL Hematocrit 31.2 (L) 35 - 47 % MCV 87 80 - 100 fL MCH 28.1 27 - 34 pg MCHC 32.4 32 - 36 g/dL RDW 18.9 (H) 11.5 - 15 % Platelet Count 167 150 - 450 X10E9/L MPV 8.3 7 - 12 fL Neutrophils % 93.9 % Lymphocytes % 4.7 % Monocytes % 0.9 % Eosinophils % 0.1 % Basophils % 0.4 % Neutrophils Absolute (A) 5.1 1.5 - 6.6 10*3/uL Lymphocytes Absolute 0.3 (L) 1.0 - 3.5 10*3/uL Monocytes Absolute 0.0 0.0 - 0.9 10*3/uL Eosinophils Absolute 0.0 0.0 - 0.4 10*3/uL Basophils Absolute 0.0 0.0 - 0.2 10*3/uL Differential Type AUTOMATED DIFFERENTIAL Extra Tubes Collection Time: 12/07/24 4:49 AM Narrative The following orders were created for panel order Extra Tubes. Procedure Abnormality Status --------- ------ Light Blue Top[[id number]] Final result Please view results for these tests on the individual orders. Light Blue Top Collection Time: 12/07/24 4:49 AM Result Value Ref Range Extra Tube Auto Resulted Radiology X-ray chest 1 view Result Date: 12/06/2024 Narrative: XR CHEST 1 VW HISTORY: Dyspnea COMPARISON: Chest radius 12/25/2023, 10/19/2023, and 10/10/2023. FINDINGS: Patient is rotated to the right. Enlarged cardiomediastinal silhouette. Worsening pulmonary vascular congestion with increasing size of right pleural effusion. Hazy left basilar airspace opacities. IMPRESSION: * Cardiomegaly with interstitial edema. There is a moderate right pleural effusion with adjacent atelectasis. 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 Computer aided detection was utilized. FINDINGS: The breasts are heterogeneously dense, which may obscure small masses. There are no suspicious masses, calcifications, or areas of architectural distortion. IMPRESSION: No mammographic evidence of malignancy. BI-RADS: BI-RADS 1 - Negative RECOMMENDATION: Routine screening mammogram in 1 year. Given personal history of malignancy, consider supplemental screening with MRI. RISK ASSESSMENT: TC Lifetime risk: --%. Tyrer-Cuzick score not calculated. The TC risk model does not apply to patients with a personal history of breast malignancy, those over the age of 84, male, or transgender patients. Finalized by Thien Ulrich MD on 11/20/2024 2:24 PM 1 c MAMM 1 YR FDA Accredited Performing Facility: [facility] - Mammography[facility]DEXA Imaging [address] [facility] [address] HOSPITAL PROBLEM LIST Principal Problem: Acute respiratory failure with hypoxia ([facility]) Active Problems: Stage 3a chronic kidney disease ([facility]) Obesity (BMI 30-39.9) Benign essential HTN Diabetes mellitus ([facility]) Mixed hyperlipidemia Hypokalemia Hypomagnesemia ASSESSMENT & PLAN Acute respiratory failure with hypoxia 5L Cannula, wears 3 L at home at baseline - wean as able Chest x-ray as above -cardiomegaly, right pleural effusion BNP 851 Troponin negative Solu-Medrol every 12 hours Scheduled DuoNebs Bnp 851 Check full RPP Add doxy Lasix 20 iv once today Most recent echo- in May of 2023-EF 55-60 Repeat echo Check orthostatics Essential hypertension Mixed hyperlipidemia Continue aspirin, Lipitor, Lopressor Type 2 diabetes mellitus Insulin sliding scale Lantus Carb controlled diet Hx breast cancer, post mastectomy Follow with oncology On femara Peripheral sensory-motor neuropathy Follows with neurology Lyrica /Cymbalta /primidone Hypothyroidism Continue Synthroid Stage IIIA chronic kidney disease Avoid nephrotoxic agents Monitor daily weight and I&O Creatinine appears to be at baseline Anemia, unspecified Hgb 10.1-baseline Iron studies Hypomagnesemia Hypokalemia Replace per sliding scale investigator welfare Sepsis suspected, no-not clinically evident at this time. Chart reviewed. Admission orders placed. Home medications reconciled. DVT/VTE prophylaxis: SCD and heparin SQ. GI prophylaxis: not indicated. PT/OT to evaluate and treat. DC plannin-2 days likely . ELVER Cox 12/07/2024 8:30 AM [facility] Popeye Degroot [facility] Internal Medicine 7AM-7PM & 7PM-7AM: EpicChat or page through On-Call Finder. ELVER Cox 12/07/24 0851 Physician Attestation I, Danie Chavez MD, personally performed a face to face diagnostic evaluation on this patient. I have reviewed the note authored by the advance practice provider including history, review of systems,physical examination,medical decision making and agree with the assessment and plan as written. I have seen and evaluated the patient, I have repeated the zhang portions of the physical exam and concur with the DARYL findings. I have reviewed all laboratory findings and imaging reports/films. I agree with the plan as noted. [facility] 12-07-2024 History and physical note Images from the original note were not included. [facility] INTERNAL MEDICINE [facility] [address] [place] [id number] Hospital Medicine History & Physical Patient: Kay Ly Date of : 1940 Room: PCP: SHAIKH ISELA MD Admission date: 12/06/2024 9:04 PM Encounter date: 12/07/24 Hospital Day: 2 SUBJECTIVE Kay Ly is a 84 y.o. female who presents with shortness of breath. Was having shortness of breath at home with associated nausea and dizziness. Also noted that her pulse ox was high 80s or low 90s. Has a history of COPD, diabetes, , hypothyroidism, hypertension, CVA chronic kidney disease. Patient is dependent on 3 L at home. Chest x-ray revealed cardiomegaly with interstitial edema. Moderate right pleural effusion with adjacent atelectasis. Lab work remarkable for hemoglobin 10.8, creatinine 1.63, glucose 153, potassium 3.1, magnesium 1.3, BNP 851, troponin 18, 1 hour 18, normal pH, respiratory pathogen panel negative. Patient admitted for COPD exacerbation. Allergies: Lisinopril Prior to Admission medications Medication Sig Start Date End Date Taking? Authorizing Provider alendronate (FOSAMAX) 70 mg tablet TAKE 1 TABLET BY MOUTH EVERY 7 DAYS FOR IN A.M. WITH WATER ON EMPTY STOMACH, NOTHING ELSE BY MOUTH AND REMAIN UPRIGHT FOR 30MIN 08/27/24 ELVER Fernandez aspirin 81 mg Take 1 tablet (81 mg total) by mouth in the morning. Not In System Ref Prov atorvastatin (LIPITOR) 80 mg tablet Take 0.5 tablets (40 mg total) by mouth in the morning. Not In System Ref Prov b complex vitamins capsule TAKE 1 CAPSULE BY MOUTH EVERY DAY IN THE MORNING 11/02/24 Kayy Hines PA-C DULoxetine (CYMBALTA) 20 mg capsule Take 1 capsule (20 mg total) by mouth in the morning. Not In System Ref Prov empagliflozin (JARDIANCE) 10 mg tablet tablet Take 1 tablet (10 mg total) by mouth in the morning. Not In System Ref Prov furosemide (LASIX) 40 mg tablet Take 0.5 tablets (20 mg total) by mouth daily. 05/30/22 Not In System Ref Prov insulin glargine (LANTUS) 100 unit/mL injection Inject 0.2 mL (20 Units total) under the skin in the morning. 08/08/21 Not In System Ref Prov letrozole (FEMARA) 2.5 mg chemo tablet Take 1 tablet by mouth daily 06/02/24 ELVER Fernandez levothyroxine (SYNTHROID, LEVOTHROID) 50 MCG tablet Take 1 tablet (50 mcg total) by mouth in the morning. Not In System Ref Prov metFORMIN (GLUCOPHAGE) 1000 mg tablet Take 1 tablet (1,000 mg total) by mouth in the morning and 1 tablet (1,000 mg total) in the evening. Take with meals. Not In System Ref Prov metoprolol tartrate (LOPRESSOR) 25 mg tablet Take 0.5 tablets (12.5 mg total) by mouth in the morning. Not In System Ref Prov pregabalin (LYRICA) 100 mg capsule Take 1 capsule (100 mg total) by mouth in the morning and 1 capsule (100 mg total) before bedtime. 08/13/24 Blanca Rosales MD primidone (MYSOLINE) 50 mg tablet Take 1 tablet (50 mg) twice daily 12/05/24 Kayy Hines PA-C rOPINIRole (REQUIP) 5 mg tablet Take 1 tablet (5 mg total) by mouth in the morning and 1 tablet (5 mg total) at noon and 1 tablet (5 mg total) in the evening. Not In System Ref Prov Code Status: Full Code Past Medical History: Patient has a past medical history of Arthritis, Breast cancer ([facility]) (2001), Breast cancer ([facility]) (07/26/2021), COPD (chronic obstructive pulmonary disease) ([facility]), Diabetes ([facility]), Diabetes mellitus type 2, controlled ([facility]), HTN (hypertension), Hyperlipidemia, Hypothyroidism, [place] (myocardial infarction) ([facility]), Obesity, Pneumonia, Restless leg, Stage 3a chronic kidney disease ([facility]) (07/18/2022), Varicella (?), and Visual impairment. Past Surgical History: Patient has a past surgical history that includes Hysterectomy; Cataract extraction; Cholecystectomy; Colectomy; Colonoscopy (12/15/2015); Oophorectomy; Breast lumpectomy (Left, 2001); Breast biopsy; Ventral hernia repair (N/A, 08/16/2018); Colonoscopy (N/A, 01/13/2021); Breast lumpectomy (Right, 08/12/2021); Mastectomy w/ sentinel node biopsy (Right, 09/02/2021); Mastectomy (Right); Catheter Removal (N/A, 11/12/2023); Umbilical hernia repair; Lymph node biopsy; Skin biopsy; Appendectomy; and Eye surgery. Family History: Patient's family history includes Arthritis in her father; Jose L Breast Cancer in her daughter; Breast cancer in her sister; Breast cancer (age of onset: 56) in her daughter; Depression in her sister; Heart attack in her father; Hypertension in her father and mother; Lung cancer (age of onset: 80) in her father. Social History: Patient reports that she quit smoking about 20 months ago. Her smoking use included cigarettes. She started smoking about 31 years ago. She has a 30 pack-year smoking history. She has never used smokeless tobacco. She reports current alcohol use of about 2.0 standard drinks of alcohol per week. She reports that she does not use drugs. Review of Systems Constitutional: Negative for chills and fever. HENT: Negative for ear pain and sore throat. Eyes: Negative for pain and visual disturbance. Respiratory: Positive for cough and shortness of breath. Cardiovascular: Negative for chest pain and palpitations. Gastrointestinal: Negative for abdominal pain and vomiting. Genitourinary: Negative for dysuria and hematuria. Musculoskeletal: Negative for arthralgias and back pain. Skin: Negative for color change and rash. Neurological: Positive for dizziness, weakness and light-headedness. Negative for seizures and syncope. All other systems reviewed and are negative. OBJECTIVE BP 107/56 Pulse 63 Temp 36.4 C (97.5 F) (Oral) Resp 18 Ht 157.5 cm (5' 2 ) Wt 77 kg (169 lb 11.2 oz) SpO2 93% BMI 31.04 kg/m Temp: [36.4 C (97.5 F)-36.9 C (98.4 F)] 36.4 C (97.5 F) Pulse: [63-87] 63 Resp: [18-23] 18 BP: (98-114)/(56-72) 107/56 SpO2: [91 %-98 %] 93 % O2 Device: Nasal cannula O2 Flow Rate (L/min): [4 L/min-5 L/min] 5 L/min No intake or output data in the 24 hours ending 12/07/24 0830 Physical Exam Vitals and nursing note reviewed. Constitutional: Appearance: She is well-developed. She is obese. HENT: Head: Normocephalic and atraumatic. Nose: Nose normal. Eyes: Pupils: Pupils are equal, round, and reactive to light. Cardiovascular: Rate and Rhythm: Normal rate and regular rhythm. Heart sounds: Normal heart sounds. No murmur heard. Pulmonary: Effort: Pulmonary effort is normal. No respiratory distress. Breath sounds: Examination of the right-lower field reveals decreased breath sounds. Examination of the left-lower field reveals decreased breath sounds. Decreased breath sounds, wheezing and rhonchi present. Abdominal: General: Bowel sounds are normal. Palpations: Abdomen is soft. Tenderness: There is no abdominal tenderness. Musculoskeletal: General: Normal range of motion. Cervical back: Neck supple. Right lower leg: Edema present. Left lower leg: Edema present. Lymphadenopathy: Cervical: No cervical adenopathy. Skin: General: Skin is warm and dry. Findings: No rash. Neurological: Mental Status: She is alert and oriented to person, place, and time. Cranial Nerves: No cranial nerve deficit. Motor: Weakness present. Medications Scheduled: heparin (porcine), 5,000 Units, subcutaneous, Q8H SHIVANI insulin lispro, 2-10 Units, subcutaneous, TID with meals insulin lispro, 2-8 Units, subcutaneous, Nightly ipratropium-albuteroL, 3 mL, nebulization, Q4H While awake methylPREDNISolone sod suc(PF), 40 mg, intravenous, Q12H sodium chloride, 3 mL, intravenous, Q12H SHIVANI Infusions: sodium chloride 0.9 %, 10 mL/hr As Needed: acetaminophen dextrose dextrose 50 % in water (D50W) glucagon (human recombinant) magnesium sulfate magnesium sulfate ondansetron ODT potassium chloride OR potassium chloride OR potassium chloride IV (Adult) sennosides-docusate sodium sodium chloride sodium chloride 0.9 % Allergies: Lisinopril Labs Recent Results (from the past 24 hours) SARS/FLU A+B/RSV by NAAT/Molecular (M4RT Collection Tube) Collection Time: 12/06/24 9:03 PM Result Value Ref Range FLU A PCR Negative Negative FLU B PCR Negative Negative RSV BY PCR Negative Negative SARS COV 2 BY PCR Not Detected Not Detected Narrative The Xpert Xpress SARS-CoV-2/Flu/RSV Plus test is a rapid, multiplexed real-time RT-PCR test intended for the simultaneous qualitative detection and differentiation of SARS-CoV-2, influenza A, influenza B and respiratory syncytial virus (RSV) viral RNA from individuals suspected of respiratory viral infection consistent with COVID-19 by Their healthcare provider. This test has not been validated in asymptomatic patients. The Xpert Xpress SARS-CoV-2 test is intended for use by qualified and trained operators who are performing tests using either [employer] or [employer] systems and is limited to laboratories that [...] acute phase of infection. Positive results are Indicative of the presence of the identified virus, [...] specimen repeat. Fact Sheet for Healthcare Providers: https://www.fda.gov/media/009865/ download Fact Sheet for Patients: https://www.fda.gov/media/039304/ download CBC auto differential Collection Time: 12/06/24 9:12 PM Result Value Ref Range WBC 5.9 4 - 11 x10E9/L RBC Count 3.90 3.8 - 5.2 X10E12/L Hemoglobin 10.8 (L) 11.7 - 15.5 g/dL Hematocrit 33.3 (L) 35 - 47 % MCV 85 80 - 100 fL MCH 27.7 27 - 34 pg MCHC 32.5 32 - 36 g/dL RDW 19.1 (H) 11.5 - 15 % Platelet Count 191 150 - 450 X10E9/L MPV 8.4 7 - 12 fL Neutrophils % 82.1 % Lymphocytes % 9.9 % Monocytes % 4.9 % Eosinophils % 2.1 % Basophils % 1.0 % Neutrophils Absolute (A) 4.8 1.5 - 6.6 10*3/uL Lymphocytes Absolute 0.6 (L) 1.0 - 3.5 10*3/uL Monocytes Absolute 0.3 0.0 - 0.9 10*3/uL Eosinophils Absolute 0.1 0.0 - 0.4 10*3/uL Basophils Absolute 0.1 0.0 - 0.2 10*3/uL Differential Type AUTOMATED DIFFERENTIAL Protime & INR Collection Time: 12/06/24 9:12 PM Result Value Ref Range PROTIME 12.6 9.8 - 13.2 sec INR 1.1 0.9 - 1.2 APTT Collection Time: 12/06/24 9:12 PM Result Value Ref Range APTT 31 26 - 37 sec Basic Metabolic Panel Collection Time: 12/06/24 9:12 PM Result Value Ref Range SODIUM 140 134 - 146 mmol/L POTASSIUM 3.1 (L) 3.5 - 5.0 mmol/L CHLORIDE 103 98 - 109 mmol/L CARBON DIOXIDE 30 22 - 32 mmol/L ANION GAP 7 5 - 15 mmol/L BLOOD UREA NITROGEN 29 (H) 5 - 27 mg/dL CREATININE 1.63 (H) 0.40 - 1.00 mg/dL GLUCOSE 153 (H) 65 - 99 mg/dL CALCIUM 8.5 8.5 - 10.5 mg/dL EGFR Non-Race Dependent 31 (L) >=60 ml/min/1.73sq.m Troponin I, High Sensitivity Collection Time: 12/06/24 9:12 PM Narrative The following orders were created for panel order Troponin I, High Sensitivity. Procedure Abnormality Status --------- ------ Troponin I, High Sensiti...[[id number]] Abnormal Final result Troponin I, High Sensiti...[[id number]] Abnormal Final result Please view results for these tests on the individual orders. Magnesium Collection Time: 12/06/24 9:12 PM Result Value Ref Range MAGNESIUM 1.3 (L) 1.8 - 2.6 mg/dL B-type natriuretic peptide Collection Time: 12/06/24 9:12 PM Result Value Ref Range BNP 851 (H) <=100 pg/mL Lactate w/ Reflex Collection Time: 12/06/24 9:12 PM Result Value Ref Range LACTATE W/REFLEX 2.1 (H) 0.4 - 2.0 mmol/L Troponin I, High Sensitivity 0 Hour Collection Time: 12/06/24 9:12 PM Result Value Ref Range TROPONIN I, HIGH SENSITIVITY 18 (H) <16 ng/L Blood gas, venous Collection Time: 12/06/24 9:27 PM Result Value Ref Range Sample type VENOUS pH, Venous 7.372 7.320 - 7.420 pCO2, Venous 52.6 (H) 35.0 - 50.0 mmHg pO2, Venous 28 (L) 30 - 50 mmHg Base, Excess 4.0 (H) 0.0 - 2.0 mmol/L HCO3, Venous 30.6 (H) 20.0 - 24.0 mmol/L %O2 Saturation, Venous 51.0 % Vernell's test N/A Sample site N/A Insp. O2 conc. 36 % Source Of Oxygen NC Troponin I, High Sensitivity 1 Hour Collection Time: 12/06/24 10:12 PM Result Value Ref Range TROPONIN I, HIGH SENSITIVITY 18 (H) <16 ng/L Narrative Elevations of hs-Troponin may be due to causes other than myocardial ischemia. Recommend serial hs-Troponin testing be performed. For the initial evaluation and management of chest pain patients, refer to the algorithms linked below. Emergency Patient: [email or web address] [email or web address]: [email or web address] Lactate w/ Reflex Collection Time: 12/07/24 1:02 AM Result Value Ref Range LACTATE W/REFLEX 0.8 0.4 - 2.0 mmol/L Narrative Result did not trigger repeat Lactate, re-order if needed. Comprehensive metabolic panel Collection Time: 12/07/24 4:49 AM Result Value Ref Range SODIUM 139 134 - 146 mmol/L POTASSIUM 3.9 3.5 - 5.0 mmol/L CHLORIDE 100 98 - 109 mmol/L CARBON DIOXIDE 25 22 - 32 mmol/L ANION GAP 14 5 - 15 mmol/L BLOOD UREA NITROGEN 31 (H) 5 - 27 mg/dL CREATININE 1.61 (H) 0.40 - 1.00 mg/dL GLUCOSE 216 (H) 65 - 99 mg/dL CALCIUM 8.3 (L) 8.5 - 10.5 mg/dL TOTAL PROTEIN 5.9 (L) 6.0 - 8.0 g/dL ALBUMIN 3.0 (L) 3.2 - 5.3 g/dL ALKALINE PHOSPHATASE 64 39 - 130 U/L AST 23 <=41 U/L ALT 28 <=31 U/L BILIRUBIN,TOTAL 1.2 0.3 - 1.2 mg/dL EGFR Non-Race Dependent 32 (L) >=60 ml/min/1.73sq.m Magnesium Collection Time: 12/07/24 4:49 AM Result Value Ref Range MAGNESIUM 2.0 1.8 - 2.6 mg/dL CBC auto differential Collection Time: 12/07/24 4:49 AM Result Value Ref Range WBC 5.4 4 - 11 x10E9/L RBC Count 3.60 (L) 3.8 - 5.2 X10E12/L Hemoglobin 10.1 (L) 11.7 - 15.5 g/dL Hematocrit 31.2 (L) 35 - 47 % MCV 87 80 - 100 fL MCH 28.1 27 - 34 pg MCHC 32.4 32 - 36 g/dL RDW 18.9 (H) 11.5 - 15 % Platelet Count 167 150 - 450 X10E9/L MPV 8.3 7 - 12 fL Neutrophils % 93.9 % Lymphocytes % 4.7 % Monocytes % 0.9 % Eosinophils % 0.1 % Basophils % 0.4 % Neutrophils Absolute (A) 5.1 1.5 - 6.6 10*3/uL Lymphocytes Absolute 0.3 (L) 1.0 - 3.5 10*3/uL Monocytes Absolute 0.0 0.0 - 0.9 10*3/uL Eosinophils Absolute 0.0 0.0 - 0.4 10*3/uL Basophils Absolute 0.0 0.0 - 0.2 10*3/uL Differential Type AUTOMATED DIFFERENTIAL Extra Tubes Collection Time: 12/07/24 4:49 AM Narrative The following orders were created for panel order Extra Tubes. Procedure Abnormality Status --------- ------ Light Blue Top[[id number]] Final result Please view results for these tests on the individual orders. Light Blue Top Collection Time: 12/07/24 4:49 AM Result Value Ref Range Extra Tube Auto Resulted Radiology X-ray chest 1 view Result Date: 12/06/2024 Narrative: XR CHEST 1 VW HISTORY: Dyspnea COMPARISON: Chest radius 12/25/2023, 10/19/2023, and 10/10/2023. FINDINGS: Patient is rotated to the right. Enlarged cardiomediastinal silhouette. Worsening pulmonary vascular congestion with increasing size of right pleural effusion. Hazy left basilar airspace opacities. IMPRESSION: * Cardiomegaly with interstitial edema. There is a moderate right pleural effusion with adjacent atelectasis. 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 Computer aided detection was utilized. FINDINGS: The breasts are heterogeneously dense, which may obscure small masses. There are no suspicious masses, calcifications, or areas of architectural distortion. IMPRESSION: No mammographic evidence of malignancy. BI-RADS: BI-RADS 1 - Negative RECOMMENDATION: Routine screening mammogram in 1 year. Given personal history of malignancy, consider supplemental screening with MRI. RISK ASSESSMENT: TC Lifetime risk: --%. Tyrer-Cuzick score not calculated. The TC risk model does not apply to patients with a personal history of breast malignancy, those over the age of 84, male, or transgender patients. Finalized by Thien Ulrich MD on 11/20/2024 2:24 PM 1 c MAMM 1 YR FDA Accredited Performing Facility: [facility] - Mammography/DEXA Imaging [address] [facility] [address] HOSPITAL PROBLEM LIST Principal Problem: Acute respiratory failure with hypoxia ([facility]) Active Problems: Stage 3a chronic kidney disease (CMS-HCC) Obesity (BMI 30-39.9) Benign essential HTN Diabetes mellitus ([facility]) Mixed hyperlipidemia Hypokalemia Hypomagnesemia ASSESSMENT & PLAN Acute respiratory failure with hypoxia 5L Cannula, wears 3 L at home at baseline - wean as able Chest x-ray as above -cardiomegaly, right pleural effusion BNP 851 Troponin negative Solu-Medrol every 12 hours Scheduled DuoNebs Bnp 851 Check full RPP Add doxy Lasix 20 iv once today Most recent echo- in May of 2023-EF 55-60 Repeat echo Check orthostatics Essential hypertension Mixed hyperlipidemia Continue aspirin, Lipitor, Lopressor Type 2 diabetes mellitus Insulin sliding scale Lantus Carb controlled diet Hx breast cancer, post mastectomy Follow with oncology On femara Peripheral sensory-motor neuropathy Follows with neurology Lyrica /Cymbalta /primidone Hypothyroidism Continue Synthroid Stage IIIA chronic kidney disease Avoid nephrotoxic agents Monitor daily weight and I&O Creatinine appears to be at baseline Anemia, unspecified Hgb 10.1-baseline Iron studies Hypomagnesemia Hypokalemia Replace per sliding scale investigator welfare Sepsis suspected, no-not clinically evident at this time. Chart reviewed. Admission orders placed. Home medications reconciled. DVT/VTE prophylaxis: SCD and heparin SQ. GI prophylaxis: not indicated. PT/OT to evaluate and treat. DC plannin-2 days likely . ELVER Cox 12/07/2024 8:30 AM [facility] 7AM-7PM & 7PM-7AM: EpicChat or page through On-Call Finder. ELVER Cox 12/07/24 0830 Physician Attestation I, Danie Chavez MD, personally performed a face to face diagnostic evaluation on this patient. I have reviewed the note authored by the advance practice provider including history, review of systems,physical examination,medical decision making and agree with the assessment and plan as written. I have seen and evaluated the patient, I have repeated the zhang portions of the physical exam and concur with the DARYL findings. I have reviewed all laboratory findings and imaging reports/films. I agree with the plan as noted. documented in this encounter [facility] 12-07-2024 Plan of care note Problem: Inadequate Breathing Pattern Goal: Patient will achieve/maintain normal respiratory rate/effort Description: Patient's goal is: INTERVENTIONS 1. Assess and monitor respiratory rate, effort, breathing pattern, and oxygenation 2. Monitor patient for restlessness, anxiety, air hunger 3. Assess physical activity tolerance 4. Assess tobacco history; ask, advise, and refer as appropriate 5. Collaborate with interdisciplinary team and initiate plans/interventions as needed Outcome: Not Progressing Note: Evaluation of progress towards goal: new admission, supplemental oxygen at 5 lpm via NC, pt often breathing through mouth instead of nose, will monitor pt and administer neb tx as ordered [facility] 12-05-2024 History of Present illness Narrative [facility] Neurology Office Note 12/03/2024 10:17 AM Patient info: Kay Ly is a 84 y.o. female Account No.: [id number] Acct: : 1940 PCP: SHAIKH ISELA MD Chief Complaint: Patient, 84 year old right hand dominant female, presents for follow up Neurological evaluation regarding peripheral sensory-motor polyneuropathy and tremor. Last seen in the office on 09/05/24 Kay is present in the office today by herself. Interval Hx: At last office visit (09/05/24) we started Primidone 50 mg with titration to 1/2 tab (25 mg) BID to help with her tremor. Kay has been feeling okay overall. Still follows with Dr. Rosales regarding torticollis. She has been toelrating the Primidone well and her tremor is a little better . Still having some difficulty at times with feeding herself/spilling food on herself while eating. Kay continues Pregabalin and Duloxetine, as prescribed by another Provider. Neuropathy sxs have been fairly well controlled. She states her legs have recently been feeling weak with walking a little ways. She is ambulating today with assistance from a walker. She denies any recent falls. Prior Hx: Initial Consultation 07/18/22 Patient reports [...] picture is consistent with diabetic sensory-motor polyneuropathy. Follow up 07/06/23 EMG/NCV study ordered last office visit (07/18/22) was not completed. 08/08/22 Labs: Copper level, Folate, TSH, ESR, CRP, and Serum Protein Electrophoresis were normal; Lyme was (-) Vitamin B12 was low at 123 (range: 180-914) and Vitamin B6 was low at 18.7 (range: 20.0-125.0) HgbA1c was 7.4% in November (2022) Kay complains of numbness/tingling into the right hand, [...] it, as it causes pain and discomfort. Follow up 11/06/23 Labs ordered last office visit (07/06/23) Vitamin B2, Vitamin B6, Vitamin B12 have not been completed. EMG/NCV study of the LE's was completed on 08/02/23. 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 Referred to PT for the ulnar neuropathy at the right elbow, as well as the torticollis. Referred her to Dr. Rosales at the [facility] for potential botox injections regarding the torticollis. She has been participating in Physical Therapy, who is concerned the numbness into the right hand, including digits 4 and 5, is coming from an issue in her cervical spine. She was able to be evaluated by Dr. Rosales, who did recommend BOTOX in treatment of the torticollis. Unfortunately, there has been some hang-ups with her insurance coverage, so she has not received any BOTOX injections thus far. Follow up 03/07/24 EMG/NCV study of the RUE was completed on 12/11/23. 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 Moderate right median neuropathy, likely overestimated given the concern for polyneuropathy. Moderate ulnar neuropathy, non-localized, likely overestimated given the concern for polyneuropathy. Restarted Vitamin B-complex, 1 tablet daily. She also takes Pregabalin 150 mg BID. There has been no change in LE sxs since last office visit (11/06/23). Also, still with tingling into the right hand; discussed the above EMG/NCV study with her today. Presents today with a cane for assistance with ambulation. She typically utilizes either a cane or walker to assist with ambulation. She states she has felt more unsteady on her feet recently, though there has been no falls. The torticollis is showing mild improvement with BOTOX thus far. She has further BOTOX injections scheduled for the near future. Follow up 09/05/24 Taking Pregabalin and Duloxetine 20 mg daily for peripheral Neuropathy sxs. Unclear dose of Pregabaling; either 100 mg BID or 150 mg BID. No change/s in neuropathy sxs. Ambulating with assistance from a walker. Denies any recent falls. Complains of the shakes , saying her hands shake when she is trying to do something, such as eating and writing. This has become bothersome and adversely affects ADLs. There is no head, chin, or vocal termor. There is no tremor in the hands at rest. Past Medical Hx: See EMR Surgical Hx: [...] hypothyroidism Hem/Onc: Negative Allergy/immunology: Negative Vitals: BP: 140/79 HR: 91 Weight: 79.4 kg Physical Exam: General: well groomed, pleasant, [...] are approximately equal in each hand Tremor: (+) intention tremor, R slightly > L Sensation is decreased in the extremities in glove-stocking distribution DTR's are trace throughout Oden's sign (-) bilaterally Strength throughout the Upper Extremities is 5/5, except being 4+/5 lumbricals digits 4 and 5 of right hand Strength throughout the Lower Extremities is 5/5 Muscle Tone throughout the extremities is normal without any rigidity or cog-wheeling Romberg is (); not tested Gait is casual with normal base, semi-shortened strides and reduced bilateral arm swing with assistance from a walker ASSESSMENT: Kay is an 84 year old right hand dominant female with a hx of DM, hypothyroidism, HTN, CKD, breast CA, hyperlipidemia, and RLS who has a generalized axonal peripheral polyneuropathy, as well as right carpal tunnel syndrome and right ulnar neuropathy. Previous labs have shown a Vitamin B6 and Vitamin B12 deficiency. She also has torticollis, for which she is receiving BOTOX injections. She also has an intention tremor that has become bothersome/adversely affects her ADLs. Gait is unsteady. PLAN: Increase Primidone to 50 mg, 1 tab BID Continue Pregabalin and Duloxetine as prescribed Refer to Physical Therapy to strengthen up her LE's Follow up in the office in 6 months Electronically Signed by: Kayy Hines PA-C 12/05/24 1018 documented in this encounter [facility] 12-05-2024 Miscellaneous Notes [employer] received call from patient to verify address of appointment today at 9:00. Patient stated would be on time almost there. documented in this encounter [facility] 12-05-2024 Telephone encounter Note [employer] received call from patient to verify address of appointment today at 9:00. Patient stated would be on time almost there. [facility] 12-01-2024 Telephone encounter Note Patient is asking for a new order for a free style jose 3+. clm [facility] 12-01-2024 Miscellaneous Notes Patient is asking for a new order for a free style jose 3+. clm documented in this encounter [facility] 11-07-2024 Note SUBJECTIVE Reason for Visit: Kay Ly is a 84 y.o. year old female patient being seen for follow-up visit. HPI: Kay Ly is a 84 y.o. year old female with significant medical history of HFpEF, CAD, HLD, DM, COPD (former smoker), and HTN. 11/07/2024 office visit: Patient seen and evaluated in the office today. She is accompanied by her brother. She is on her baseline oxygen at 2 L nasal cannula. She is able to ambulate without any KWON with her oxygen in. On exam, she has trace lower extremity edema - reports this as stable. Otherwise, she denies chest pain, palpitations, lightheadedness dizziness. 04/28/2024 office visit (Dr. Martinez): Kay Ly is a 83 y.o. female With [...] no paroxysmal: Dyspnea, and no lower extremity Update 04/28/2024: Doing fairly well. Shortness of breath is the same if no worse. Denies chest pain. No orthopnea, no paroxysmal external dyspnea, no lower extremity edema. No significant weight gain or abdominal distention. Was on both lisinopril and losartan in the past but these were stopped presumably due to dizziness/lightheadedness Medical History[1] Surgical History[2] Problem List[3] family history is not on file. Social History[4] OBJECTIVE Visit Vitals Smoking Status Former Physical Exam Constitutional: General Appearance: well-developed, appears stated age. Level of Distress: no acute distress. Neck: Jugular Veins: normal jugular venous pressure. Lungs: Auscultation: no rales or rhonchi and normal breath sounds. Cardiovascular: Rate And Rhythm: regular Heart Sounds: normal S1 and s2; Systolic Murmur: not heard. Diastolic Murmur: not heard. Extremities: Trace LE edema. Peripheral Pulses: Pulses: full and equal in all extremities except if noted. Abdomen: Inspection and Palpation: non distended or tender and soft. Musculoskeletal: Inspection: no joint tenderness or swelling. Neurologic: Gait: normal gait. Psychiatric: Mental Status: alert and normal affect. Skin: Inspection and Palpation: warm and dry. Allergies: Allergies[5] Outpatient Medications: Current Outpatient Medications Medication Instructions alogliptin (NESINA) 12.5 mg, oral, Daily aspirin 81 mg, oral, Daily RT atorvastatin (LIPITOR) 40 mg, oral, Nightly cyanocobalamin (VITAMIN B-12) 1,000 mcg, oral, Daily RT empagliflozin (JARDIANCE) 10 mg, oral, Daily furosemide (LASIX) 40 mg, oral, Once Daily hydroCHLOROthiazide (HYDRODIURIL) 25 mg, oral, Nightly insulin glargine (Lantus) 100 unit/mL injection subcutaneous insulin glargine-yfgn 100 unit/mL (3 mL) insulin pen subcutaneous letrozole (FEMARA) 2.5 mg, oral, Daily meclizine (ANTIVERT) 25 mg, oral metFORMIN (GLUCOPHAGE) 500 mg, oral metoprolol succinate XL (TOPROL-XL) 12.5 mg, oral, Once Daily, Do not crush or chew. pantoprazole (ProtoNix) 40 mg EC tablet TAKE 1 TABLET BY MOUTH EVERY DAY IN THE MORNING BEFORE MEALS pregabalin (LYRICA) 150 mg, oral, 2 times daily rOPINIRole (REQUIP) 3 mg, oral, Daily RT Synthroid 75 mcg, oral Recent Labs: No visits with results within 6 Month(s) from this visit. Latest known visit with results is: [facility] Encounter on 07/11/2019 Component Date Value Glucose 07/11/2019 195 (H) BUN 07/11/2019 19 Creatinine 07/11/2019 1.06 Sodium 07/11/2019 136 Potassium 07/11/2019 4.9 Chloride 07/11/2019 103 CO2 07/11/2019 26 Calcium 07/11/2019 10.1 eGFR - Non- Ameri* 07/11/2019 50 (A) eGFR - 07/11/2019 >60 Most recent labs reviewed, 08/19/2024: Glucose 160, sodium 142, potassium 4.0, creatinine 1.6, EGFR 32, albumin 3.7 TSH 4.6 Hemoglobin A1c 7.6, WBC 6.8, hemoglobin 10.7, platelets 102 LDL 29, HDL 31, triglycerides 86, total cholesterol 73 I have personally reviewed and anaylzed the following laboratory results above. These findings have been analyzed in the context of the patient's clinical presentation. Cardiovascular Diagnostic Studies: Stress test 12/07/2023: Coronary angiogram 07/11/2019: TTE 12/26/2023: 12 Lead ECG: No results found for this or any previous visit (from the past 4464 hours). Cardiac event monitor 11/09/2023: Holter monitor 11/09/2023 Predominant rhythm is sinus with average rate of 83 bpm Fastest rate was 181 bpm PSVT with slowest rate was 54 bpm Longest episode of sinus bradycardia was 21 seconds Longest episode of sinus tachycardia was 11 minutes and 6 seconds with rates between 140 110 8% ventricular ectopic burden 48 couplets 1 episode of 3 beats of nonsustained ventricular tachycardia No atrial fibrillation No pauses or blocks I have personally re (more content not included)... [facility] 11-05-2024 History of Present illness Narrative Associated Problem(s): Chronic respiratory failure with hypoxia (CMS/HCC) Follow with pulmonology. Associated Problem(s): Type 2 diabetes mellitus with hyperglycemia, with long-term current use of insulin (CMS/HCC) A1C 7.6 and resume jardiance. [facility] Associated Problem(s): Type 2 diabetes mellitus with diabetic neuropathy, with long-term current use of insulin (CMS/HCC) Symptoms stable and continue lyrica. Associated Problem(s): Multiple sclerosis (CMS/HCC) No symptoms and follow with neurology. Associated Problem(s): COPD (chronic obstructive pulmonary disease) (CMS/HCC) Breathing stable and continue inhalers. Follow with pulmonology. Associated Problem(s): Chronic diastolic HF (heart failure) (CMS/HCC) No edema and continue lasix. Follow with cardiology. Associated Problem(s): Benign essential HTN (CMS/HCC) BP controlled and monitor PRN. Images from the original note were not included. Subjective Patient ID: Kay Ly is a 84 y.o. female who presents for Follow-up (3 m/sob). Follow up DM, HTN, COPD, neuropathy, hypothyroid, and MS. Patient stable today. [facility], [facility], and [facility]y. A1C in August 01.6. Reports out of jardiance. Prescribed by endo in fall but no longer following with them. BS stable and tries to stick to ADA diet and limit carbs. Checking BP PRN and typically controlled. BP normal today. Taking medication daily and tolerating without side effects. COPD stable. Mild SOB with exertion. Occasional cough but no sputum. Remains on oxygen. Neuropathy stable. Mild numbness and tingling. MS stable and no weakness. Following with neurology. No signs of low thyroid and denies fatigue, change in nails, hair, or skin. Taking synthroid daily. Review of Systems Respiratory: Negative for cough, shortness of breath and wheezing. Cardiovascular: Negative for chest pain and palpitations. Gastrointestinal: Negative for abdominal pain, diarrhea, nausea and vomiting. Genitourinary: Negative for dysuria. Objective Physical Exam Constitutional: General: She is not in acute distress. Appearance: Normal appearance. HENT: Head: Normocephalic. Right Ear: Tympanic membrane normal. Left Ear: Tympanic membrane normal. Eyes: Extraocular Movements: Extraocular movements intact. Pupils: Pupils are equal, round, and reactive to light. Cardiovascular: Rate and Rhythm: Normal rate and regular rhythm. Heart sounds: No murmur heard. No friction rub. No gallop. Pulmonary: Effort: Pulmonary effort is normal. Breath sounds: Normal breath sounds. No wheezing, rhonchi or rales. Abdominal: General: Bowel sounds are normal. There is no distension. Palpations: Abdomen is soft. Tenderness: There is no abdominal tenderness. There is no guarding or rebound. Musculoskeletal: Cervical back: Neck supple. Right lower leg: No edema. Left lower leg: No edema. Neurological: Mental Status: She is alert. Assessment/Plan Problem List Items Addressed This Visit Benign essential HTN (CMS/HCC) BP controlled and monitor PRN. Type 2 diabetes mellitus with hyperglycemia, with long-term current use of insulin ([facility]/HCC) - Primary A1C 7.6 and resume jardiance. [facility]. Relevant Medications Continuous Glucose Slitter And Rewinder Machine Operator (Dexcom G7 Slitter And Rewinder Machine Operator) device Continuous Glucose Sensor (Dexcom G7 Sensor) misc Chronic diastolic HF (heart failure) ([facility]/HCC) No edema and continue lasix. Follow with cardiology. Type 2 diabetes mellitus with diabetic neuropathy, with long-term current use of insulin ([facility]) Symptoms stable and continue lyrica. Relevant Medications pregabalin (Lyrica) 75 MG capsule COPD (chronic obstructive pulmonary disease) ([facility]) Breathing stable and continue inhalers. Follow with pulmonology. Multiple sclerosis ([facility]) No symptoms and follow with neurology. Other Visit Diagnoses Hypothyroidism, unspecified type ([facility]) Relevant Medications levothyroxine (Synthroid, Levoxyl) 50 MCG tablet documented in this encounter [facility] 09-12-2024 Miscellaneous Notes [facility] [place] [facility]. Notes from 09/05/24 have been faxed to [phone]. documented in this encounter [facility] 09-12-2024 Telephone encounter Note [facility] [place] [facility]. Notes from 09/05/24 have been faxed to [phone]. [facility] 09-05-2024 History of Present illness Narrative [facility] Neurology Office Note 09/04/2024 10:02 AM Patient info: Kay Ly is a 83 y.o. female Account No.: [id number] Acct: : 1940 PCP: SHAIKH ISELA MD Chief Complaint: Patient, 83 year old right hand dominant female, presents for follow up Neurological evaluation regarding peripheral sensory-motor polyneuropathy. Last seen in the office on 03/07/24 Kay is present in the office today by herself. Interval Hx: Taking Pregabalin and Duloxetine 20 mg daily for peripheral Neuropathy sxs. Unclear dose of Pregabaling; either 100 mg BID or 150 mg BID. No change/s in neuropathy sxs. Ambulating with assistance from a walker. Denies any recent falls. Complains of the shakes , saying her hands shake when she is trying to do something, such as eating and writing. This has become bothersome and adversely affects ADLs. There is no head, chin, or vocal termor. There is no tremor in the hands at rest. Prior Hx: Initial Consultation 07/18/22 Patient reports [...] picture is consistent with diabetic sensory-motor polyneuropathy. Follow up 07/06/23 EMG/NCV study ordered last office visit (07/18/22) was not completed. 08/08/22 Labs: Copper level, Folate, TSH, ESR, CRP, and Serum Protein Electrophoresis were normal; Lyme was (-) Vitamin B12 was low at 123 (range: 180-914) and Vitamin B6 was low at 18.7 (range: 20.0-125.0) HgbA1c was 7.4% in November (2022) Kay complains of numbness/tingling into the right hand, [...] it, as it causes pain and discomfort. Follow up 11/06/23 Labs ordered last office visit (07/06/23) Vitamin B2, Vitamin B6, Vitamin B12 have not been completed. EMG/NCV study of the LE's was completed on 08/02/23. 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 Referred to PT for the ulnar neuropathy at the right elbow, as well as the torticollis. Referred her to Dr. Rosales at the [facility] for potential botox injections regarding the torticollis. She has been participating in Physical Therapy, who is concerned the numbness into the right hand, including digits 4 and 5, is coming from an issue in her cervical spine. She was able to be evaluated by Dr. Rosales, who did recommend BOTOX in treatment of the torticollis. Unfortunately, there has been some hang-ups with her insurance coverage, so she has not received any BOTOX injections thus far. Follow up 03/07/24 EMG/NCV study of the RUE was completed on 12/11/23. 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 Moderate right median neuropathy, likely overestimated given the concern for polyneuropathy. Moderate ulnar neuropathy, non-localized, likely overestimated given the concern for polyneuropathy. Restarted Vitamin B-complex, 1 tablet daily. She also takes Pregabalin 150 mg BID. There has been no change in LE sxs since last office visit (11/06/23). Also, still with tingling into the right hand; discussed the above EMG/NCV study with her today. Presents today with a cane for assistance with ambulation. She typically utilizes either a cane or walker to assist with ambulation. She states she has felt more unsteady on her feet recently, though there has been no falls. The torticollis is showing mild improvement with BOTOX thus far. She has further BOTOX injections scheduled for the near future. Past Medical Hx: See EMR Surgical Hx: [...] hypothyroidism Hem/Onc: Negative Allergy/immunology: Negative Vitals: BP: 133/76 HR: 81 Weight: 79.4 kg Physical Exam: General: well groomed, pleasant, [...] are approximately equal in each hand Tremor: (+) intention tremor, R slightly > L Sensation is decreased in the extremities in glove-stocking distribution DTR's are trace throughout Oden's sign (-) bilaterally Strength throughout the Upper Extremities is 5/5, except being 4+/5 lumbricals digits 4 and 5 of right hand Strength throughout the Lower Extremities is 5/5 Muscle Tone throughout the extremities is normal without any rigidity or cog-wheeling Romberg is (); not tested Gait is casual with normal base, semi-shortened strides and mildly reduced bilateral arm swing with assistance from a walker ASSESSMENT: Kay is an 83 year old right hand dominant female with a hx of DM, hypothyroidism, HTN, CKD, breast CA, hyperlipidemia, and RLS who has a generalized axonal peripheral polyneuropathy, as well as right carpal tunnel syndrome and right ulnar neuropathy. Previous labs have shown a Vitamin B6 and Vitamin B12 deficiency. She also has torticollis, for which she is receiving BOTOX injections. She also has an intention tremor that has become bothersome/adversely affects her ADLs. PLAN: Continue Pregabalin and Duloxetine as prescribed Start Primidone 50 mg, 1/2 tab (25 mg) HS for 2 weeks, then increase to 1/2 tab (25 mg) BID Exercise caution with ambulation, particularly on uneven surfaces Follow up in the office in 3 months Electronically Signed by: Kayy Hines PA-C 09/05/24 0924 documented in this encounter [facility] 08-25-2024 History of Present illness Narrative Patient had labs and urine obtained by [place] last week. Appears to have UTI and treat with macrobid. Script sent. documented in this encounter [facility] 08-12-2024 Miscellaneous Notes Received call from patient and she states that she has been having pain in her neck since her botox injection 07/31/2024. She states that its located on the right side sort of in the middle. Describes the pain as a :real bad ache sometimes if I move it to the right it really bad sitting back in the chair it starts ringing . She states that she has tried heat and tylenol with no relief. She states she has taken a couple aspirins which did not help. Please advise. This sounds like it could be a side effect from right longissimus injection. The longissimus muscle is very close to nerve roots coming out of the cervical spinal cord. So these nerve roots may be irritated during the injection. We could try a medication for neurogenic pain to provide temporary relief until it gets better on its own. Other option would be to consider neck physical therapy to help relieve any muscle spasm that may be happening from nerve root irritation. Spoke with patient and she states that she already takes 75mg of lyrica BID which does not provide any relief. She states that she does not want to try PT due to the O2. Please advise. With her current renal function, we have some room to go up on the dose of Lyrica. If she is interested, we can start by increasing her dose to Lyrica 100 mg by mouth twice a day. Patient would like to try Lyrica 100 mg BID. documented in this encounter [facility] 08-12-2024 Telephone encounter Note Received call from patient and she states that she has been having pain in her neck since her botox injection 07/31/2024. She states that its located on the right side sort of in the middle. Describes the pain as a :real bad ache sometimes if I move it to the right it really bad sitting back in the chair it starts ringing . She states that she has tried heat and tylenol with no relief. She states she has taken a couple aspirins which did not help. Please advise. [facility] 08-12-2024 Telephone encounter Note This sounds like it could be a side effect from right longissimus injection. The longissimus muscle is very close to nerve roots coming out of the cervical spinal cord. So these nerve roots may be irritated during the injection. We could try a medication for neurogenic pain to provide temporary relief until it gets better on its own. Other option would be to consider neck physical therapy to help relieve any muscle spasm that may be happening from nerve root irritation. [facility] 08-12-2024 Telephone encounter Note Spoke with patient and she states that she already takes 75mg of lyrica BID which does not provide any relief. She states that she does not want to try PT due to the O2. Please advise. [facility] 08-12-2024 Telephone encounter Note With her current renal function, we have some room to go up on the dose of Lyrica. If she is interested, we can start by increasing her dose to Lyrica 100 mg by mouth twice a day. [facility] 08-12-2024 Telephone encounter Note Patient would like to try Lyrica 100 mg BID. [facility] 07-07-2024 History of Present illness Narrative Pt called in to office. Pantoprazole ineffective. Will trial Omeprazole. If no symptom improvement will do referral to GI. Pt to call office in a few weeks to update with symptoms. documented in this encounter [facility] 06-25-2024 History of Present illness Narrative Associated Problem(s): Stage 3a chronic kidney disease (HCC) (CMS/HCC) Related to HTN/DMII. Renal function panel ordered in - pt did not have done. Will print requisition today to be done . Associated Problem(s): Coronary artery disease involving bad [place] coronary artery 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 angina pectoris (CMS/HCC) Currently taking Atorvastatin 40mg Denies any myalgias. Lipid panel ordered in 02/2024- Awaiting for pt to complete. Continue current regimen. Associated Problem(s): Coronary atherosclerosis (CMS/HCC) Currently taking Atorvastatin 40mg Denies any myalgias. Lipid panel ordered in 02/2024- Awaiting for pt to complete. Continue current regimen. Associated Problem(s): Type 2 diabetes mellitus with diabetic neuropathy, with long-term current use of insulin (CMS/HCC) Currently taking Lantus, metformin, Jardiance. Follows closely with Endocrinology Most recent labs: hemoglobin A1C 7.1% Average FSBS range from 100-130 Checks BG levels using: ORVIBOStyle Jose No episode of hypoglycemia No medication adverse effects reported by the patient. Patient educated on lifestyle modifications, dietary restrictions, signs and symptoms of hypoglycemia/hyperglycemia and importance of eating regular consistent meals. Stressed upon importance of checking blood glucose at home and bring blood glucose log to appointments. All questions, concerns answered and addressed. Encouraged to call office if persistent hypoglycemia/hyperglycemia on home glucose monitoring noted. Associated Problem(s): Benign essential HTN (CMS/HCC) Currently taking Lasix and metoprolol Checks BP at home; Averages are 118/70. Denies orthostatic changes, dizziness, cough, shortness of breath, swelling in extremities. Continue current regimen. Given BP log, advised pt to record BP and bring log back with them to next visit. Images from the original note were not included. Subjective Patient ID: Kay Ly is a 83 y.o. female who presents for Follow-up. HPI Specialists: Endocrinology- Dr. Pierre Cardiology- [facility] Pulmonology- Dr. Goldstein Heme/Onc- Dr. Gunter HTN: Currently taking Lasix and metoprolol Checks BP at home; Averages are 118/70. Denies orthostatic changes, dizziness, cough, shortness of breath, swelling in extremities. Continue current regimen. Given BP log, advised pt to record BP and bring log back with them to next visit. HLD: Currently taking Atorvastatin 40mg Denies any myalgias. Lipid panel ordered in 02/2024- Awaiting for pt to complete. Continue current regimen. DMII: Currently taking Lantus, metformin, Jardiance. Follows closely with Endocrinology Most recent labs: hemoglobin A1C 7.1% Average FSBS range from 100-130 Checks BG levels using: [employer] Jose No episode of hypoglycemia No medication adverse effects reported by the patient. Patient educated on lifestyle modifications, dietary restrictions, signs and symptoms of hypoglycemia/hyperglycemia and importance of eating regular consistent meals. Stressed upon importance of checking blood glucose at home and bring blood glucose log to appointments. All questions, concerns answered and addressed. Encouraged to call office if persistent hypoglycemia/hyperglycemia on home glucose monitoring noted. Education: Check blood sugars daily, notify if <70 or >200. Take medications (pills or insulin) as directed. Monitor for s/s of hypoglycemia (sweaty, dizziness, nausea, vomiting, or shakiness). Watch for increase in thirst, urination, or appetite. Inspect feet frequently monitoring for open wounds , and also recommend yearly eye exam. Pt should attempt to remain as physically active as chronic conditions allow, as well as trying to follow a diet low in carbohydrates, and simple sugars. CKD III: Related to HTN/DMII. Renal function panel ordered in - pt did not have done. Will print requisition today to be done . Review of Systems Constitutional: Negative for activity change, appetite change, chills, diaphoresis, fatigue, fever and unexpected weight change. HENT: Negative for congestion, ear pain, rhinorrhea, sinus pressure, sinus pain, sneezing, sore throat, trouble swallowing and voice change. Eyes: Negative for visual disturbance. Respiratory: Negative for cough, chest tightness, shortness of breath and wheezing. Cardiovascular: Negative for chest pain, palpitations and leg swelling. Gastrointestinal: Negative for abdominal distention, abdominal pain, blood in stool, constipation, diarrhea and vomiting. Genitourinary: Negative for decreased urine volume, dysuria, flank pain, frequency, hematuria and urgency. Musculoskeletal: Negative for arthralgias, gait problem, joint swelling and myalgias. Skin: Negative for rash. Neurological: Negative for dizziness, tremors, syncope, weakness, light-headedness and headaches. Psychiatric/Behavioral: Negative for decreased concentration and suicidal ideas. The patient is not nervous/anxious. Hematological: Does not bruise/bleed easily. Endocrine: Negative for cold intolerance, heat intolerance, polydipsia, polyphagia and polyuria. Objective Physical Exam Vitals reviewed. Constitutional: Appearance: Normal appearance. HENT: Right Ear: Tympanic membrane normal. Left Ear: Tympanic membrane normal. Nose: Nose normal. Mouth/Throat: Mouth: Mucous membranes are moist. Pharynx: Oropharynx is clear. Eyes: Pupils: Pupils are equal, round, and reactive to light. Cardiovascular: Rate and Rhythm: Normal rate and regular rhythm. Pulses: Normal pulses. Heart sounds: Normal heart sounds. Pulmonary: Effort: Pulmonary effort is normal. Breath sounds: Normal breath sounds. Abdominal: General: Abdomen is flat. Bowel sounds are normal. Palpations: Abdomen is soft. Musculoskeletal: General: Normal range of motion. Skin: General: Skin is warm and dry. Capillary Refill: Capillary refill takes less than 2 seconds. Neurological: Mental Status: She is alert and oriented to person, place, and time. Assessment/Plan Problem List Items Addressed This Visit Benign essential HTN (CMS/HCC) Currently taking Lasix and metoprolol Checks BP at home; Averages are 118/70. Denies orthostatic changes, dizziness, cough, shortness of breath, swelling in extremities. Continue current regimen. Given BP log, advised pt to record BP and bring log back with them to next visit. Coronary artery disease involving [place] coronary artery 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 angina pectoris ([facility]/HCC) - Primary Currently taking Atorvastatin 40mg Denies any myalgias. Lipid panel ordered in 02/2024- Awaiting for pt to complete. Continue current regimen. Stage 3a chronic kidney disease (HCC) (CMS/HCC) Related to HTN/DMII. Renal function panel ordered in - pt did not have done. Will print requisition today to be done . Type 2 diabetes mellitus with diabetic neuropathy, with long-term current use of insulin ([facility]) Currently taking Lantus, metformin, Jardiance. Follows closely with Endocrinology Most recent labs: hemoglobin A1C 7.1% Average FSBS range from 100-130 Checks BG levels using: [employer] Jose No episode of hypoglycemia No medication adverse effects reported by the patient. Patient educated on lifestyle modifications, dietary restrictions, signs and symptoms of hypoglycemia/hyperglycemia and importance of eating regular consistent meals. Stressed upon importance of checking blood glucose at home and bring blood glucose log to appointments. All questions, concerns answered and addressed. Encouraged to call office if persistent hypoglycemia/hyperglycemia on home glucose monitoring noted. documented in this encounter [facility] 06-02-2024 History of Present illness Narrative Images from the original note were not included. [facility] [address] [place] [id number] 06/02/2024 Chief Complaint Patient presents with Follow-up Subjective/Interval events: Kay Ly is a 83 y.o. year old female who is an established patient seen today in the Hematology/Medical Oncology clinic. Presents for follow up visit for right breast cancer HR+ status post right mastectomy and TC/RT finished 03/2022. She is currently on letrozole 2.5 mg daily. She also has a history of left breast cancer that was treated with lumpectomy and radiation. Patient tells me that her energy levels are adequate for her age/baseline. She denies chest pain, shortness of breath, NVD. She does have occasional constipation that is relieved with the stool softener. She denies hot flashes, muscle and joint aches and pains, headaches, vision changes, any new lumps/bumps or changes to the breast and/or mastectomy site She does tell me that she has chronic visual changes of double vision that is being managed by her director operations. This has only improved. All questions answered to the patient's satisfaction. History of Present Illness: Mrs. Ly is a 83 y.o. female with history of left-sided breast cancer in 1999, underwent chemotherapy followed by surgery and radiation and was on Arimidex for about 5 years. Afterwards she has been getting routine mammograms. She felt a lump over her right breast about 2 months ago, 1 cm asymmetry was found in her mammogram over right breast, in the subareolar region around 06:00 o'clock. Biopsy of the lesion showed save lobular carcinoma, grade 1, ER strongly positive LA weakly positive and HER2 negative. She is referred to Medical Oncology for further evaluation. According to the patient, she recently underwent CT scan in outside hospital which was negative for metastasis (record reviewed) Letrozole 05/2021- Patient status post mastectomy 08/2021: Final path showed T2 disease, 3/10 lymph nodes involved. Margins are clear. Adjuvant chemotherapy with TC 10/2021- Interval history: The patient completed her adjuvant TC treatment then adjuvant radiation therapy in March 2022. Currently she is on letrozole and tolerated very well. The patient went to [facility] due to shortness of breath and underwent right-sided thoracentesis about 1 L of fluid was removed. She is breathing much better. The patient is compliant with her letrozole treatment daily. Fatigue is relatively stable. No significant diarrhea or peripheral neuropathies. She has strong family history of breast cancer. Her daughter had breast cancer and underwent bilateral mastectomy. One of her sister also diagnosed with breast cancer recently underwent bilateral mastectomy. No new breast issues. No new bone pains. Oncology History 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, estrogen receptor positive (CMS-HCC) 06/02/2021 Initial Diagnosis 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, estrogen receptor positive (CMS-HCC) 09/02/2021 - Cancer Staged Staging form: Breast, AJCC 8th Edition - Pathologic stage from 09/02/2021: Stage IA (pT2, pN1a, cM0, G1, ER+, LA+, HER2-) - Signed by Jewels Finch DO on 01/27/2022 Review of Symptoms as below unless otherwise stated in HPI Review of symptoms is covered in subjective/interval events. All other systems are negative unless stated above. ECO- Symptomatic; fully ambulatory Physical exam: Vitals: BP 139/81 Pulse 92 Temp 36.2 C (97.2 F) Resp 20 Ht 157.5 cm (5' 2.01 ) Wt 80.6 kg (177 lb 12.8 oz) SpO2 96% BMI 32.51 kg/m Body mass index is 32.51 kg/m . Wt Readings from Last 3 Encounters: 06/02/24 80.6 kg (177 lb 12.8 oz) 03/07/24 84.8 kg (187 lb) 02/01/24 87.5 kg (193 lb) Physical Exam Constitutional: Appearance: Normal appearance. Cardiovascular: Rate and Rhythm: Normal rate and regular rhythm. Pulses: Normal pulses. Heart sounds: Normal heart sounds. Pulmonary: Effort: Pulmonary effort is normal. Breath sounds: Normal breath sounds. Chest: Breasts: Right: Absent. Abdominal: General: Bowel sounds are normal. Palpations: Abdomen is soft. Musculoskeletal: General: Normal range of motion. Skin: General: Skin is warm and dry. Capillary Refill: Capillary refill takes less than 2 seconds. Neurological: General: No focal deficit present. Mental Status: She is oriented to person, place, and time. Mental status is at baseline. Gait: Gait abnormal (uses cane for ambulation). Psychiatric: Mood and Affect: Mood normal. Behavior: Behavior normal. Thought Content: Thought content normal. Judgment: Judgment normal. Recent labs: No results found for this or any previous visit (from the past week). Problem list: Problem List Items Addressed This Visit Immune and Lymphatic Metastatic cancer to axillary lymph nodes ([facility]-HCC) Relevant Medications letrozole (FEMARA) 2.5 mg chemo tablet Other 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, estrogen receptor positive ([facility]-HCC) Relevant Medications letrozole (FEMARA) 2.5 mg chemo tablet Other Visit Diagnoses Age-related osteoporosis without current pathological fracture - Primary Relevant Medications alendronate (FOSAMAX) 70 mg tablet High risk medication use Personal history of malignant neoplasm of breast Aromatase inhibitor use Osteoporosis due to aromatase inhibitor Impression: #. Right-sided breast cancer, lobular invasive carcinoma, grade 1 ERPR positive HER2 negative Status post mastectomy on the right side, 08/2021, T2 N1 disease MammaPrint high risk Letrozole 2.5 mg daily #. Remote history of Left-sided breast cancer diagnosed and treated in 1999, status post lumpectomy radiation and chemotherapy. #. Strong family history of breast cancer #. Osteoporosis on DEXA scan from 11/2023 Patient hesitant to start on any medication to help with osteoporosis Osteoporosis education performed at today's visit Recommend to start Fosamax 70 mg weekly, sent to pharmacy Plan: Continue letrozole 2.5 mg daily Start Fosamax 70 mg once weekly for osteoporosis DEXA scan every 2 years, next due in 2025 Schedule MRI around 07/25/[address] Rincon Schedule mammogram around 10/[address] Rincon Follow up in 6 months OARRS/MAPS reviewed, appropriate. Thank you for allowing me to participate in this patient's care. ELVER FERNANDEZ 06/02/2024 10:58 AM Total time spent was 40 minutes: Preparing to see the patient (e.g., review of tests) Obtaining and/or reviewing separately obtained history Performing a medically appropriate examination and/or evaluation Counseling and educating the patient/family/caregiver Ordering medications, tests, or procedures Referring and communicating with other health resident care coordinator (not separately reported) Documenting clinical information in the electronic or other health record Independently interpreting results (not separately reported) and communicating results to the patient/family/caregiver Care coordination (not separately reported) ---- Please note that portions of this note may have been generated using voice recognition [email or web address] dictation software. Although every effort was made to ensure the accuracy of any automated transcriptions, some errors may have occurred. ELVER Fernandez 06/02/24 1103 documented in this encounter [facility] [place] 06-02-2024 Instructions ELVER Fernandez - 06/02/2024 10:00 AM EST Continue letrozole 2.5 mg daily Start Fosamax 70 mg once weekly for osteoporosis DEXA scan every 2 years, next in 2025 Schedule MRI around 07/25/[address] Rincon Schedule mammogram around 10/[address] Rincon Follow up in 6 months documented in this encounter [facility] 05-05-2024 Telephone encounter Note LUIS ENRIQUE:03/06/2024 NOV:06/10/2024 [facility] 05-05-2024 Miscellaneous Notes LUIS ENRIQUE:03/06/2024 NOV:06/10/2024 documented in this encounter [facility] 04-29-2024 Telephone encounter Note LUIS ENRIQUE:03/06/2024 NOV:06/10/2024 Pt states she has 1 pill left. [facility] 04-29-2024 Miscellaneous Notes LUIS ENRIQUE:03/06/2024 NOV:06/10/2024 Pt states she has 1 pill left. documented in this encounter [facility] 04-28-2024 Note [facility] Cardiology Clinic Note Chief Complaint: Patient here for 3 mo follow up chronic diastolic heart failure, CAD, abd hypertension. Toprol was reduced to 12.5mg daily at last visit in Jan 2024. Says she had a CXR at her home on Sunday and it showed she had moderate pleural effusion per patient. Says she's been taking hydrochlorothiazide at night time for the past week on her own accord. Still gets episodes of dizziness with blurred vision. Taking meclizine prn. Denies chest pain, palpitations, and LE edema. She will have another CXR on 05/05 prior to her apt with Dr. Goldstein on 05/07. HPI: Kay Ly is a 83 y.o. female With [...] no paroxysmal: Dyspnea, and no lower extremity Update 04/28/2024: Doing fairly well. Shortness of breath is the same if no worse. Denies chest pain. No orthopnea, no paroxysmal external dyspnea, no lower extremity edema. No significant weight gain or abdominal distention. Was on both lisinopril and losartan in the past but these were stopped presumably due to dizziness/lightheadedness Cardiology ROS: Review of Systems Eyes: Positive for blurred vision. Cardiovascular: Positive for dyspnea on exertion. Respiratory: Positive for cough and shortness of breath. Musculoskeletal: Positive for muscle weakness. Neurological: Positive for dizziness, light-headedness and weakness. All other systems reviewed and are negative. Past Medical History She has a past medical history of Abnormal ECG, Arrhythmia, Cancer ([facility]), Chronic kidney disease, Diabetes mellitus (CMS/HCC), Hyperlipidemia, Hypertension, and Stroke ([facility]). Surgical History She has a past surgical history that includes Cardiac catheterization. Social History She reports that she quit smoking about 7 months ago. Her smoking use included cigarettes. She started smoking about 30 years ago. She has a 15 pack-year smoking history. She has never used [...] Rfl: atorvastatin (Lipitor) 80 mg tablet, Take 40 mg by mouth at bedtime., Disp: , Rfl: cyanocobalamin (Vitamin B-12) 1,000 mcg tablet, Take 1,000 mcg by mouth in the morning., Disp: , Rfl: empagliflozin (Jardiance) 10 mg, Take 10 mg by mouth in the morning., Disp: , Rfl: furosemide (Lasix) 40 mg tablet, Take 1 tablet (40 mg) by mouth once daily as directed., Disp: 90 tablet, Rfl: 3 insulin glargine (Lantus) 100 unit/mL injection, Inject under the skin., Disp: , Rfl: letrozole (Femara) 2.5 mg chemo tablet, Take 2.5 mg by mouth in the morning, Disp: , Rfl: metFORMIN (Glucophage) 1,000 mg tablet, Take 500 mg by mouth., Disp: , Rfl: metoprolol succinate XL (Toprol-XL) 25 mg 24 hr tablet, Take 0.5 tablets (12.5 mg) by mouth once daily as directed. Do not crush or chew., Disp: 45 tablet, Rfl: 3 pregabalin (Lyrica) 75 mg capsule, Take 150 mg by mouth twice a day., Disp: , Rfl: rOPINIRole (Requip) 3 mg tablet, Take 3 mg by mouth in the morning., Disp: , Rfl: Synthroid 75 mcg tablet, Take 75 mcg by mouth., Disp: , Rfl: Last Recorded Vitals BP 102/60 (BP Location: Right arm, Patient Position: Sitting) Pulse 74 Ht 1.6 m (5' 3 ) Wt 79.8 kg (176 lb) Comment: per patient's scale at home this morning SpO2 96% Comment: on 3L O2 BMI 31.18 kg/m??? Physical Examination: GENERAL: alert and oriented [...] disease Normal global left ventricular systolic function (more content not included)... [facility] 03-12-2024 History of Present illness Narrative Kay Ly is a 83 y.o. female No ref. provider found presents with chief complaint of Diabetes (NEW) HPI: HPI New patient sent from [facility] [employer], for diabetes with neuropathy, she is on high dose Lyrica 150 mg twice a day, A1c in our office 7.1, blood sugar 152, she is on Lantus 20 units, metformin 1000 twice a day, Jardiance 10 mg once a day, last GFR 46 in November/2023 and she has severe neuropathy in her legs and in her hands. Last 6.7 in November/2023. SUBJECTIVE: MEDICATIONS: Current Outpatient Medications Medication Instructions albuterol HFA 90 mcg/act inhaler 2 puffs, Inhalation, Every 4 hours PRN aspirin 81 mg, Daily atorvastatin (LIPITOR) 40 mg, Oral, Daily DULoxetine (CYMBALTA) 20 mg, Oral, Daily, Do not crush or chew. empagliflozin (JARDIANCE) 10 mg, Oral, Daily furosemide (LASIX) 20 mg, Oral, Daily glucose blood (Accu-Chek Yesenia Plus) test strip 1 each, 3 times daily insulin glargine (LANTUS) 20 Units, Subcutaneous, Daily letrozole (FEMARA) 2.5 mg, Daily levothyroxine (Synthroid, Levoxyl) 75 MCG tablet TAKE 1 TABLET BY MOUTH IN THE MORNING. TAKE BEFORE MEALS. losartan (COZAAR) 25 mg, Daily metFORMIN (GLUCOPHAGE) 1,000 mg, Oral, 2 times daily metoprolol succinate XL (TOPROL-XL) 12.5 mg, Daily pantoprazole (PROTONIX) 40 mg, Oral, Daily before breakfast, Do not crush, chew, or split. pregabalin (LYRICA) 150 mg, Oral, 2 times daily rOPINIRole (REQUIP) 5 mg, Oral, 3 times daily ALLERGIES: Allergies Allergen Reactions Lisinopril Past Medical History: Diagnosis Date Abdominal pain Acid reflux At moderate risk for fall Balance problem Bilateral lower extremity edema Breast cancer (CMS/HCC) Breast mass, right Cellulitis of left lower extremity Colonic polyp Diabetes (CMS/HCC) Diabetic neuropathy (CMS/HCC) Dyspnea on exertion Elevated d-dimer Hx of breast cancer 2003 Hypercholesterolemia (CMS/HCC) Hyperglycemia due to type 2 diabetes mellitus (CMS/HCC) Hyperlipidemia (CMS/HCC) Hypertension (CMS/HCC) Incarcerated ventral hernia 2019 incisional Invasive lobular carcinoma of breast in female (CMS/HCC) Knee pain, right anterior Lateral knee pain, left Lumbar back pain with radiculopathy affecting right lower extremity Medication management Multiple sclerosis (CMS/HCC) Nausea and vomiting in adult Oral thrush Oropharyngeal dysphagia Osteoporosis (CMS/HCC) Recent change in frequency of bowel movements Restless leg syndrome Secondary restless legs syndrome Skin lesion Sleep apnea in adult Stomach problems Surgical site infection Thoracic back pain Type 2 diabetes mellitus (CMS/HCC) Venous stasis dermatitis of left lower extremity Past Surgical History: Procedure Laterality Date APPENDECTOMY BREAST LUMPECTOMY Left CATARACT EXTRACTION CHOLECYSTECTOMY COLECTOMY Partial CT ANGIOGRAM HEART CORONARY 10/05/2023 CT ANGIOGRAM TAVR 10/05/2023 HYSTERECTOMY IR TUNNELED CENTRAL VENOUS ACCESS DEVICE W SUBCUTANEOUS PUMP 10/21/2021 IR TUNNELED CENTRAL VENOUS ACCESS DEVICE W SUBCUTANEOUS PUMP 10/21/2021 REPAIR HERNIA VENTRAL / INCISIONAL 07/2018 Incarcerated with mesh REVIEW OF SYMPTOMS: 14 POINT OF SYSTEM REVIEWED AND NEGATIVE OBJECTIVE: Constitutional: Afebrile @ home; no weakness or night sweats SKIN: No change in skin color; no itching, rash or lesions; no hair loss; HEENT: No HAs or injury; no dizziness; No difficulty with vision; no eye pain, discharge or lesions; no hearing loss or difficulty; no nasal discharge, NECK: No pain, limitation of motion, lumps or swollen glands RESP: No cough, wheezing or difficulty breathing. No CP with breathing; CARDIO: No CP , SOB or fatigue, No edema, palpitations or dyspnea with exertion GI: No N/V/D or abd. pain; good appetite with no recent change. No heart burn, liver or gallbladder disease; no rectal bleeding or pain : No urinary pain , frequency or odor. MUSCULOSKELETAL: No muscle pain or cramps; no extremity weakness.No joint pain, stiffness, swelling or limitation of movement NEUROLOGY: No H/O seizures, stroke or fainting. No weakness, tremors. Hematology: No bleeding problems or excessive bruising ENDOCRINE: No increase in hunger, thirst or urination; admits compliance to medical management plan Feet: numbness tingling yes , ulcers or skin break no Lab Results Component Value Date HGBA1C 7.1 03/12/2024 HGBA1C 6.7 (H) 12/25/2023 Lab Results Component Value Date GLU 152 03/12/2024 GLU 129 (H) 01/15/2024 GLU 148 (H) 12/25/2023 GLU 148 (H) 12/25/2023 Visit Vitals BP 140/82 Pulse 71 Resp 16 Ht 5' 2 Wt 196 lb BMI 35.85 kg/m Smoking Status Former BSA 1.97 m ASSESSMENT AND PLAN: Assessment/Plan Diagnoses and all orders for this visit: Type 2 diabetes mellitus with hyperglycemia, with long-term current use of insulin (CMS/HCC) - POCT glucose manually resulted - POCT glycosylated hemoglobin (Hb A1C) docked device - DULoxetine (Cymbalta) [address] capsule; Take 1 capsule (20 mg) by mouth Daily Do not crush or chew. - C-peptide; Future - Vitamin D 25 hydroxy Total; Future - Microalbumin / creatinine urine ratio; Future - Lipid panel; Future - Renal function panel; Future We will continue with the same medication Lantus 20 units, Jardiance 10 mg, metformin 1000 twice a day, it is okay to continue with metformin until GFR less than 30, last GFR 45 in November/2023 Insulin long-term use (CMS/HCC) Stage 3a chronic kidney disease (HCC) (CMS/HCC) Primary hypertension (CMS/HCC) Vitamin D deficiency Hyperlipemia, mixed (CMS/HCC) Encounter for dietary consultation Diet and exercise reviewed with the patient Acquired hypothyroidism (CMS/HCC) - Thyroid peroxidase antibody; Future - T3, free; Future - T4, free; Future - TSH; Future We will continue with levothyroxine 50 we will check lab and adjust accordingly Follow up in about 3 months (around 06/12/2024). documented in this encounter [facility] 03-07-2024 History of Present illness Narrative [facility] Office Note 03/06/2024 12:45 PM Patient info: Kay Ly is a 83 y.o. female Account No.: [id number] Acct: : 1940 PCP: SHAIKH ISELA MD Chief Complaint: Patient, 83 year old right hand dominant female, presents for follow up Neurological evaluation regarding peripheral sensory-motor polyneuropathy. Last seen in the office on 11/06/23 Kay is present in the office today by herself. Interval Hx: EMG/NCV study of the RUE was completed on 12/11/23. 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 Moderate right median neuropathy, likely overestimated given the concern for polyneuropathy. Moderate ulnar neuropathy, non-localized, likely overestimated given the concern for polyneuropathy. Restarted Vitamin B-complex, 1 tablet daily. She also takes Pregabalin 150 mg BID. There has been no change in LE sxs since last office visit (11/06/23). Also, still with tingling into the right hand; discussed the above EMG/NCV study with her today. Presents today with a cane for assistance with ambulation. She typically utilizes either a cane or walker to assist with ambulation. She states she has felt more unsteady on her feet recently, though there has been no falls. The torticollis is showing mild improvement with BOTOX thus far. She has further BOTOX injections scheduled for the near future. Prior Hx: Initial Consultation 07/18/22 Patient reports [...] picture is consistent with diabetic sensory-motor polyneuropathy. Follow up 07/06/23 EMG/NCV study ordered last office visit (07/18/22) was not completed. 08/08/22 Labs: Copper level, Folate, TSH, ESR, CRP, and Serum Protein Electrophoresis were normal; Lyme was (-) Vitamin B12 was low at 123 (range: 180-914) and Vitamin B6 was low at 18.7 (range: 20.0-125.0) HgbA1c was 7.4% in November (2022) Kay complains of numbness/tingling into the right hand, [...] it, as it causes pain and discomfort. Follow up 11/06/23 Labs ordered last office visit (07/06/23) Vitamin B2, Vitamin B6, Vitamin B12 have not been completed. EMG/NCV study of the LE's was completed on 08/02/23. 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 Referred to PT for the ulnar neuropathy at the right elbow, as well as the torticollis. Referred her to Dr. Rosales at the [facility] [place] for potential botox injections regarding the torticollis. She has been participating in Physical Therapy, who is concerned the numbness into the right hand, including digits 4 and 5, is coming from an issue in her cervical spine. She was able to be evaluated by Dr. Rosales, who did recommend BOTOX in treatment of the torticollis. Unfortunately, there has been some hang-ups with her insurance coverage, so she has not received any BOTOX injections thus far. Past Medical Hx: See EMR Surgical Hx: [...] hypothyroidism Hem/Onc: Negative Allergy/immunology: Negative Vitals: BP: 114/71 HR: 75 Weight: 84.8 kg Physical Exam: General: well groomed, pleasant, [...] tested Gait is casual with normal base, semi-shortened strides and mildly reduced bilateral arm swing ASSESSMENT: Kay is an 83 year old right hand dominant female with a hx of DM, hypothyroidism, HTN, CKD, breast CA, hyperlipidemia, and RLS who has a generalized axonal peripheral polyneuropathy, as well as right carpal tunnel syndrome and right ulnar neuropathy. Previous labs have shown a Vitamin B6 and Vitamin B12 deficiency. She also has torticollis, for which she is receiving BOTOX injections. Recently there has been a mild increase in gait instability/unsteady gait. PLAN: PT for balance and mobility OT for right carpal tunnel syndrome and right ulnar neuropathy Continue current medication regimen, including the Vitamin B-complex Follow up in the office in 6 months, sooner if needed Electronically Signed by: Kyay Hines PA-C 03/11/24 0937 documented in this encounter [facility] [employer] 03-06-2024 History of Present illness Narrative Images from the original note were not included. Subjective : Chief Complaint: Kay Ly is an 83 y.o. female here for an annual wellness visit. I have reviewed and reconciled the history and medication list with the patient today. Current Outpatient Medications Medication Sig Dispense Refill albuterol HFA 90 mcg/act inhaler Inhale 2 puffs every 4 (four) hours if needed for wheezing 8.5 g 3 aspirin 81 MG EC tablet Take 81 mg by mouth in the morning. atorvastatin (Lipitor) 40 MG tablet TAKE 1 TABLET BY MOUTH EVERY DAY 100 tablet 1 furosemide (Lasix) 20 MG tablet Take 1 tablet (20 mg) by mouth in the morning. 90 tablet 0 glucose blood (Accu-Chek Yesenia Plus) test strip 1 each by Other route in the morning and 1 each in the evening and 1 each before bedtime. Use as instructed. insulin glargine (Lantus) 100 UNIT/ML injection Inject 15 Units under the skin 1 (one) time each day letrozole (Femara) 2.5 MG chemo tablet Take 2.5 mg by mouth Daily. Take with or without food. levothyroxine (Synthroid, Levoxyl) 75 MCG tablet TAKE 1 TABLET BY MOUTH IN THE MORNING. TAKE BEFORE MEALS. 90 tablet 1 losartan (Cozaar) 25 MG tablet Take 25 mg by mouth Daily metFORMIN (Glucophage) 1000 MG tablet TAKE 1 TABLET BY MOUTH TWICE A DAY 180 tablet 3 metoprolol succinate XL (Toprol-XL) 25 MG 24 hr tablet Take 12.5 mg by mouth Daily pregabalin (Lyrica) 150 MG capsule TAKE 1 CAPSULE BY MOUTH IN THE MORNING AND 1 CAPSULE BEFORE BEDTIME. 180 capsule 0 rOPINIRole (Requip) 5 MG tablet TAKE 1 TABLET BY MOUTH THREE TIMES A DAY 270 tablet 1 No current facility-administered medications for this visit. Review of Systems Constitutional: Negative for activity change, appetite change, chills, diaphoresis, fatigue, fever and unexpected weight change. HENT: Negative for congestion, ear pain, rhinorrhea, sinus pressure, sinus pain, sneezing, sore throat, trouble swallowing and voice change. Eyes: Negative for visual disturbance. Respiratory: Negative for cough, chest tightness, shortness of breath and wheezing. Cardiovascular: Negative for chest pain, palpitations and leg swelling. Gastrointestinal: Negative for abdominal distention, abdominal pain, blood in stool, constipation, diarrhea and vomiting. Genitourinary: Negative for decreased urine volume, dysuria, flank pain, frequency, hematuria and urgency. Musculoskeletal: Negative for arthralgias, gait problem, joint swelling and myalgias. Skin: Negative for rash. Neurological: Negative for dizziness, tremors, syncope, weakness, light-headedness and headaches. Psychiatric/Behavioral: Negative for decreased concentration and suicidal ideas. The patient is not nervous/anxious. Hematological: Does not bruise/bleed easily. Endocrine: Negative for cold intolerance, heat intolerance, polydipsia, polyphagia and polyuria. List of current healthcare providers: Patient Care Team: George Hayden MD as PCP - General (Family Medicine) Shaikh Isela MD as PCP - Devoted Jyoti Wiggins NP as Nurse Practitioner (Family Medicine) Blank Johnson LPN as Licensed Practical Nurse (Family Medicine) Medicare Annual Visit Over the past 2 weeks, how often have you been bothered by any of the following problems? Little interest or pleasure in doing things: Not at all Feeling down, depressed, or hopeless: Not at all Patient Health Questionnaire-2 Score: 0 Over the past 2 weeks, how often have you been bothered by any of the following problems? Trouble falling or staying asleep, or sleeping too much: Not at all Feeling tired or having little energy: Not at all Poor appetite or overeating: Not at all Feeling bad about yourself - or that you are a failure or have let yourself or your family down: Not at all Trouble concentrating on things, such as reading the newspaper or watching television: Not at all Moving or speaking so slowly that other people could have noticed? Or the opposite - being so fidgety or restless that you have been moving around a lot more than usual.: Not at all Thoughts that you would be better off or hurting yourself in some way: Not at all Patient Health Questionnaire-9 Score: 0 Alfaro Fall Risk History of Falling, Immediate or Within 3 Months: No Health Risk Assessment Form Do you need help eating, bathing, using the toilet, dressing, or getting around your home?: No Can you prepare your own meals?: Yes Can you do your own housework without help?: Yes Can you shop for groceries or clothes without help?: Yes Do you exercise for about 20 minutes 3 or more days a week?: No How confident are you that you can control and manage most of your health problems?: Very confident Can you mange your money, credit cards and accounts, pay bills and taxes?: Yes Cognitive Screening Three Word Registration: Daxa Palacio Picture Clock Drawing: Normal Clock - 2 Three Word Recall: 0 words correct - 0 Total Score (0-5 Points): 2 Objective : BP 110/60 Pulse 109 Temp 96.4 F Resp 16 Ht 5' 2 Wt 192 lb 6.4 oz SpO2 93% BMI 35.19 kg/m No results found. Physical Exam Vitals reviewed. Constitutional: Appearance: Normal appearance. HENT: Head: Normocephalic and atraumatic. Right Ear: Tympanic membrane normal. Left Ear: Tympanic membrane normal. Nose: Nose normal. Mouth/Throat: Mouth: Mucous membranes are moist. Pharynx: Oropharynx is clear. Eyes: Pupils: Pupils are equal, round, and reactive to light. Cardiovascular: Rate and Rhythm: Normal rate and regular rhythm. Pulses: Normal pulses. Heart sounds: Normal heart sounds. Pulmonary: Effort: Pulmonary effort is normal. Breath sounds: Normal breath sounds. Abdominal: General: Abdomen is flat. Bowel sounds are normal. Palpations: Abdomen is soft. Musculoskeletal: General: Normal range of motion. Cervical back: Normal range of motion. Skin: General: Skin is warm and dry. Capillary Refill: Capillary refill takes less than 2 seconds. Neurological: General: No focal deficit present. Mental Status: She is alert and oriented to person, place, and time. Psychiatric: Mood and Affect: Mood normal. Behavior: Behavior normal. Assessment/Plan : The following health maintenance schedule was reviewed with the patient and provided in printed form in the after visit summary: Health Maintenance Topic Date Due Diabetes: Retinopathy Screening 12/27/2023 Influenza Vaccine (1) 01/27/2024 Diabetes: Hemoglobin A1C 03/26/2024 Medicare Annual Wellness (AWV) 05/10/2024 Diabetes: Urine Protein Screening 02/05/2025 Pneumococcal Vaccine: 65+ Years Addressed Advance Care Planning Given information on advanced directives, patient will review information and bring back to office. Daughter wa s No orders of the defined types were placed in this encounter. Electronically signed by Jyoti Wiggins NP on March 06, 2024 documented in this encounter [facility] 02-21-2024 Note Cardiovascular Medic [facility] SUBJECTIVE Chief Complaint Patient presents with Congestive Heart Failure Coronary Artery Disease Hypertension Kay Ly is a 83 y.o. female here for follow-up. HPI PMHx: moderate two-vessel coronary artery disease, hypertension and HFpEF, former smoker, DM2 Hx of COPD - on supplemental O2 She presents for follow-up after her recent hospital stay at [facility]. She was admitted for acute on chronic HFpEF and right pleural effusion. Thoracentesis was done, 800ml was removed. Her lasix was switched to bumex. She notes that she wasn't producing as much urine, she had some weight gain and leg swelling, so she went back to the lasix 40mg daily and those sx's resolved/weight went back down. Her weight since being home from the hospital has been 192-194lbs. Prior to her admission her weight was around 207lbs. She is feeling better. She has KWON with heavier exertion but this is at her baseline. Denies c/o CP, orthopnea, PND, LE edema, dizziness/LH, palpitations, syncope. 02/21/24 She is doing well since last seen. BP at home running 110-120s/60-70s. Her KWON is unchanged. She reports some dizziness with position changes or if she is walking she feels off balance at times. Denies c/o CP, orthopnea, PND, LE edema, palpitations, syncope. Patient Active Problem List Diagnosis Coronary artery disease involving [place] coronary artery 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 angina pectoris Benign essential HTN Mixed hyperlipidemia Tobacco dependence due to cigarettes Anterocollis Cervical disc disorder at C6-C7 level with radiculopathy Cervicalgia Chronic diastolic HF (heart failure) (CMS/HCC) Chronic idiopathic constipation Contusion of left shoulder Cutaneous abscess of buttock Cutaneous abscess, unspecified Diabetes mellitus (CMS/HCC) Diabetic neuropathy (CMS/HCC) Dizziness and giddiness Encounter for observation for other suspected diseases and conditions ruled out Generalized weakness Heart failure, unspecified (CMS/HCC) Hernia of abdominal cavity, with obstruction History of colonoscopy History of malignant neoplasm of breast Hospital discharge follow-up 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) Hypokalemia 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 Hypoxia Intermittent palpitations Irregularly irregular pulse rhythm Contusion of knee 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, estrogen receptor positive (CMS/HCC) 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) Normocytic anemia Obesity (BMI 30-39.9) Obesity, morbid (CMS/HCC) Tinea unguium RLS (restless legs syndrome) Exertional dyspnea Stage 3a chronic kidney disease (CMS/HCC) Status post right mastectomy Suspected cerebrovascular accident (CVA) Suspected chronic obstructive pulmonary disease based on initial evaluation (CMS/HCC) Urinary tract infection without hematuria Incarcerated ventral hernia Ventricular bigeminy seen on casework specialist Cobalamin deficiency Abnormal MRI of head Bilateral carpal tunnel syndrome Lumbar back pain with radiculopathy affecting right lower extremity Multiple sclerosis (CMS/HCC) Myalgia, other site Numbness and tingling Polyneuropathy Ulnar neuropathy of both upper extremities Acute on chronic heart failure with preserved ejection fraction (HFpEF) (CMS/HCC) Acute on chronic hypoxic respiratory failure (CMS/HCC) Hypotension due to hypovolemia Loculated pleural effusion Restrictive lung disease due to kyphoscoliosis Severe pulmonary hypertension (CMS/HCC) Past Medical History: Diagnosis Date Abnormal ECG Arrhythmia Cancer (CMS/HCC) Chronic kidney disease Diabetes mellitus (CMS/HCC) Hyperlipidemia Hypertension Stroke (CMS/HCC) No family history on file. Social History Tobacco Use Smoking status: Former Packs/day: 0.50 Years: 30.00 Additional pack years: 0.00 Total pack years: 15.00 Types: Cigarettes Quit date: 09/2023 Years since quittin.4 Smokeless tobacco: Never Allergies Allergen Reactions Lisinopril Cough Review of Systems Constitutional: Negative for chills, decreased appetite, fever, malaise/fatigue and weight gain. Cardiovascular: Positive for dyspnea on exertion. Negative for chest pain, irregular heartbeat, leg swelling, near-syncope, orthopnea, palpitations, paroxysmal nocturnal dyspnea and syncope. Hematologic/Lymphatic: Negative for bleeding problem. Does not bruise/bleed easily. OBJECTIVE Visit Vitals BP 108/70 (BP Location: Left arm, Patient Position: Sitting) Pulse 76 Ht 1.6 m (5' 3 ) Wt 85.7 kg (189 lb) SpO2 96% Comment: on 3L O2 BMI 33.48 kg/m??? Smoking Status Former BSA 1.95 m??? Medications: Current Outpatient Medications: alogliptin (Nesina) 12.5 mg tablet, Take 12.5 mg by mouth in the morning., Disp: , Rfl: aspirin 81 mg EC tablet, (more content not included)... [facility] 02-21-2024 Note Patient here for 1 m o follow up HFpEF. She's lost 8# since last visit on 01/15/2024. No change to KWON. Still denies chest pain and LE edema. She's been out of metoprolol for a few weeks. Her daughter last week so she's been very stressed. Review of Systems Constitutional: Positive for weight loss (8# since 01/15/2024). Cardiovascular: Positive for dyspnea on exertion. Musculoskeletal: Positive for muscle weakness. Neurological: Positive for loss of balance and weakness. All other systems reviewed and are negative. [facility] 02-01-2024 History of Present illness Narrative Patient is here for CT of chest in late 04/2024 F/u with md in mid 05/2024, CBC, CMP. Patient given calendar, verbalized understanding of future appointments. documented in this encounter [facility] 02-01-2024 History of Present illness Narrative CT of chest in late 04/2024 F/u with md in mid 05/2024, CBC, CMP. documented in this encounter [facility] 02-01-2024 History of Present illness Narrative Images from the original note were not included. [facility] 02/01/24 Kay Ly is a 83 y.o. year old female seen today in the oncology clinic. Chief Complaint Patient presents with Follow-up History of Present Illness: Mrs. Ly is a 83 y.o. female with history of left-sided breast cancer in 1999, underwent chemotherapy followed by surgery and radiation and was on Arimidex for about 5 years. Afterwards she has been getting routine mammograms. She felt a lump over her right breast about 2 months ago, 1 cm asymmetry was found in her mammogram over right breast, in the subareolar region around 06:00 o'clock. Biopsy of the lesion showed save lobular carcinoma, grade 1, ER strongly positive LA weakly positive and HER2 negative. She is referred to Medical Oncology for further evaluation. According to the patient, she recently underwent CT scan in outside hospital which was negative for metastasis (record reviewed) Letrozole 05/2021- Patient status post mastectomy 08/2021: Final path showed T2 disease, 3/10 lymph nodes involved. Margins are clear. Adjuvant chemotherapy with TC 10/2021- Interval history: The patient completed her adjuvant TC treatment then adjuvant radiation therapy in March 2022. Currently she is on letrozole and tolerated very well. The patient went to [facility] due to shortness of breath and underwent right-sided thoracentesis about 1 L of fluid was removed. She is breathing much better. The patient is compliant with her letrozole treatment daily. Fatigue is relatively stable. No significant diarrhea or peripheral neuropathies. She has strong family history of breast cancer. Her daughter had breast cancer and underwent bilateral mastectomy. One of her sister also diagnosed with breast cancer recently underwent bilateral mastectomy. No new breast issues. No new bone pains. Past Medical History: Diagnosis Date Breast cancer ([facility] [place]) 2001 LT Breast cancer ([facility] [place]) 07/26/2021 RIGHT COPD (chronic obstructive pulmonary disease) ([facility] [place]) Diabetes ([facility] [place]) Diabetes mellitus type 2, controlled ([facility] [place]) HTN (hypertension) Hyperlipidemia Hypothyroidism [place] (myocardial infarction) ([facility] [place]) Obesity Pneumonia Restless leg Stage 3a chronic kidney disease ([facility] [place]) 07/18/2022 Visual impairment Past Surgical History: Procedure Laterality Date BREAST BIOPSY BREAST LUMPECTOMY Left 2001 RADIATION AND CHEMO BREAST LUMPECTOMY Right 08/12/2021 CATARACT EXTRACTION CHOLECYSTECTOMY COLECTOMY COLONOSCOPY 12/15/2015 Dr. Cortez COLONOSCOPY N/A 01/13/2021 Performed by Wilberto Hughes DO at [facility] HYSTERECTOMY MASTECTOMY Right MASTECTOMY W/ SENTINEL NODE BIOPSY Right 09/02/2021 OOPHORECTOMY REMOVAL PORT A CATH N/A 11/12/2023 Performed by Bo Rincon MD at [facility] AMBULATORY SURGERY REPAIR HERNIA VENTRAL. incarcerated N/A 08/16/2018 Performed by Kemar Beltre MD at [facility] Family History Problem Relation Age of Onset Hypertension Mother Heart attack Father Hypertension Father Lung cancer Father 80 +smoking Breast cancer Sister Jose L Breast Cancer Daughter Breast cancer Daughter 56 Social History Socioeconomic History Marital status: Tobacco Use Smoking status: Former Current packs/day: 0.00 Average packs/day: 1 pack/day for 30.0 years (30.0 ttl pk-yrs) Types: Cigarettes Start date: 03/23/1993 Quit date: 03/23/2023 Years since quittin.8 Smokeless tobacco: Never Tobacco comments: 1 pack a month Vaping Use Vaping status: Never Used Substance and Sexual Activity Alcohol use: Yes Alcohol/week: 2.0 standard drinks of alcohol Types: 1 Glasses of wine, 1 Shots of liquor per week Comment: minimal- twice a month Drug use: No Sexual activity: Defer Partners: Male Social Determinants of Health Financial Resource Strain: Low Risk (01/13/2024) Received from [facility] Overall Financial Resource Strain (CARDIA) Difficulty of Paying Living Expenses: Not hard at all Food Insecurity: No Food Insecurity (02/01/2024) Hunger Screening Food Insecurity - Worry: Never True Food Insecurity - Inability: Never True Transportation Needs: No Transportation Needs (01/13/2024) Received from [facility] PRAPARE - Transportation Lack of Transportation (Medical): No Lack of Transportation (Non-Medical): No Physical Activity: Inactive (01/13/2024) Received from [facility] Exercise Vital Sign Days of Exercise per Week: 0 days Minutes of Exercise per Session: 0 min Stress: No Stress Concern Present (01/13/2024) Received from [facility] [place] of Occupational Health - Occupational Stress Questionnaire Feeling of Stress : Not at all Social Connections: Moderately Integrated (01/13/2024) Received from [facility] Social Connection and Isolation Panel [NHANES] Frequency of Communication with Friends and Family: More than three times a week Frequency of Social Gatherings with Friends and Family: Three times a week Attends [employer] Services: More than 4 times per year Active Member of Clubs or Organizations: Yes Attends Club or Organization Meetings: More than 4 times per year Marital Status: Interpersonal Safety: Not At Risk (10/19/2023) Humiliation, Afraid, Rape, and Kick questionnaire Fear of Current or Ex-Partner: No Emotionally Abused: No Physically Abused: No Sexually Abused: No Housing Instability: Low Risk (01/13/2024) Received from [facility] Housing Stability Vital Sign Unable to Pay for Housing in the Last Year: No Number of Times Moved in the Last Year: 0 Homeless in the Last Year: No Allergies Allergen Reactions Lisinopril Cough Medication List Accurate as of February 01, 2024 3:36 PM. If you have any questions, ask your nurse or doctor. Medications Modified This Visit letrozole 2.5 mg chemo tablet Quantity: 90 tablet Refills: 3 Signed by: Dean Gunter TAKE 1 TABLET BY MOUTH EVERY DAY Commonly known as: FEMARA What changed: when to take this Medications Continued This Visit alogliptin-metFORMIN 12.5-1,000 mg tablet Refills: 0 Dose: 12.5 mg aspirin 81 mg Refills: 0 Dose: 81 mg atorvastatin 80 mg tablet Refills: 0 Dose: 40 mg Commonly known as: LIPITOR b complex vitamins tablet Quantity: 90 tablet Refills: 1 For diagnoses: Diabetic peripheral neuropathy (CMS-HCC), Paresthesias in right hand Dose: 1 tablet Signed by: Kayy Hines PA-C 1 tablet, oral, Daily furosemide 40 mg tablet Refills: 0 Dose: 20 mg Commonly known as: LASIX insulin glargine 100 unit/mL injection Refills: 0 Dose: 20 Units Commonly known as: LANTUS JARDIANCE 10 mg tablet tablet Refills: 0 Dose: 10 mg Generic drug: empagliflozin levothyroxine 50 MCG tablet Refills: 0 Dose: 50 mcg Commonly known as: SYNTHROID, LEVOTHROID metFORMIN 1000 mg tablet Refills: 0 Dose: 1,000 mg Commonly known as: GLUCOPHAGE pregabalin 75 mg capsule Refills: 0 Dose: 150 mg Commonly known as: LYRICA rOPINIRole 5 mg tablet Refills: 0 Dose: 5 mg Commonly known as: REQUIP Review of Symptoms: Review of Systems Constitutional: Positive for fatigue. All other systems reviewed and are negative. ECO- Symptomatic; fully ambulatory Physical Exam: General: Well appearing, in no acute distress. Vitals: BP 123/60 Pulse 86 Temp 36.7 C (98.1 F) (Oral) Resp 20 Ht 157.5 cm (5' 2.01 ) Wt 87.5 kg (193 lb) SpO2 92% BMI 35.29 kg/m Body mass index is 35.29 kg/m . Eyes: No icterus, no conjuctival erythema ENT: Pharyngeal mucosa was moist without exudate and inflammation or ulcerations. Tongue was midline and appeared normal.Gums were unremarkable. Lymph nodes: No palpable adenopathy Neck: Supple. There were no masses, tenderness. Trachea was midline. Respiratory: Respirations were non-labored. Lungs were clear to auscultation. There was no dullness to percussion. Cardiac: Regular rate and rhythm, S1 and S2 sounds were normal. There were no rubs or gallops. Abdomen: Soft, non-tender, Nondistended. Bowel sounds audible in all four quadrants. There were no palpable masses. The liver and spleen were not enlarged. Extremities: There was no clubbing, Cyanosis, edema. Skin: There was no obvious rashes, bruising or ecchymosis. Back exam: No palpable tenderness was appreciated. Neurologic: There was no unilateral weakness. Mood and affect: Normal. Breast exam: Right mastectomy change without evidence of chest wall recurrence. Start tissue is unremarkable. No evidence of bilateral lymphadenopathy. Left breast is unremarkable. Recent Imaging: No results found. Recent Labs: No results found for this or any previous visit (from the past 336 hour(s)). 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 Strong family history of breast cancer Plan: The patient completed Taxotere/Cytoxan treatment about a month ago, recover well from chemotherapy. Status post radiation therapy. Physical examination today is unremarkable, no suspicious chest wall lesions. The patient resumed Femara after radiation therapy and tolerating very well. The patient's recent mammogram October 2023 was unremarkable. She had a pneumonia prior to thoracentesis, after procedure her breathing is back to normal. CT of chest in late 04/2024 F/u with md in mid 05/2024, CBC, CMP. Thank you. Dean Gunter MD Please note that portions of this note were generated using voice recognition [employer] dictation software. Although every effort was made to ensure the accuracy of this automated tip finisher, some errors in tip finisher may have occurred. CC: Patient Care Team: Shaikh Isela MD as PCP - General (Internal Medicine) Dean Gunter MD as Consulting Physician (Hematology) RADHA Welch as Genetic Counselor (Oncology) Bo Rincon MD as Consulting Physician (Breast Surgery) Gladys Huddleston DO as Referring Physician (Family Medicine) PCP:SHAIKH ISELA Referring MD: Shaikh Weiss MD documented in this encounter [facility] 02-01-2024 Instructions Dean Gunter MD - 02/01/2024 3:[address] of chest in late 04/2024 F/u with md in mid 05/2024, CBC, CMP. documented in this encounter [facility] 01-14-2024 History of Present illness Narrative Associated Problem(s): Type 2 diabetes mellitus with diabetic neuropathy, with long-term current use of insulin ([facility]) Reports frequent hypoglycemic episodes for past 1 month. Previously her blood glucose were elevated and testing indicated poorly controlled T2 DM. Decrease glargine to 15 units. Discontinue Glipizide at this time. [employer] prescribed Jardiance for pt. Pt is unsure of dosage- will follow-up. Continue Metformin, Lantus, and Jardiance as directed. Images from the original note were not included. Subjective Patient ID: Kay Ly is a 83 y.o. female who presents for Follow-up ([employer] APPROVED JARDIANCE FOR HER. WANTED TO TALK WITH YOU PRIOR TO TAKING IT. PT IS GETTING IT FREE. ). HPI Is here today to double check it is ok to take Jardiance that [employer] had prescribed Most recent A1C 6.7 % in November/ Has been having lows in the morning's consistently. Requests today to see endocrinology for closer management. Still needs to see all specialists. See's cardiology on 01/15/2024 See's pulmonolgy on 02/20/2024 See's me 02/24 Review of Systems Constitutional: Negative for activity change, appetite change, chills, fatigue, fever, night sweats and unexpected weight change. HENT: Negative for congestion, ear pain, rhinorrhea, sinus pressure, sinus pain, sore throat, trouble swallowing and voice change. Eyes: Negative for discharge and visual disturbance. Respiratory: Negative for chest tightness, shortness of breath and wheezing. Cardiovascular: Negative for chest pain, palpitations and leg swelling. Gastrointestinal: Negative for abdominal distention, abdominal pain, blood in stool, constipation, diarrhea, nausea and vomiting. Genitourinary: Negative for difficulty urinating, dysuria, flank pain, hematuria and pelvic pain. Musculoskeletal: Negative for arthralgias, joint swelling and neck pain. Skin: Negative for rash and wound. Neurological: Negative for dizziness, tremors, syncope, weakness, light-headedness, numbness and headaches. Psychiatric/Behavioral: Negative for sleep disturbance and suicidal ideas. The patient is not nervous/anxious. Hematological: Does not bruise/bleed easily. Endocrine: Negative for cold intolerance, heat intolerance, polydipsia, polyphagia and polyuria. Objective Physical Exam Vitals reviewed. Constitutional: Appearance: Normal appearance. HENT: Head: Normocephalic. Right Ear: External ear normal. Left Ear: External ear normal. Nose: Nose normal. Mouth/Throat: Mouth: Mucous membranes are moist. Pharynx: Oropharynx is clear. Eyes: Pupils: Pupils are equal, round, and reactive to light. Cardiovascular: Rate and Rhythm: Normal rate and regular rhythm. Pulses: Normal pulses. Pulmonary: Effort: Pulmonary effort is normal. Breath sounds: Normal breath sounds. Abdominal: General: Abdomen is flat. Bowel sounds are normal. Palpations: Abdomen is soft. Musculoskeletal: General: Normal range of motion. Cervical back: Normal range of motion. Skin: General: Skin is warm. Capillary Refill: Capillary refill takes 2 to 3 seconds. Neurological: Mental Status: She is alert and oriented to person, place, and time. Psychiatric: Mood and Affect: Mood normal. Behavior: Behavior normal. Assessment/Plan Problem List Items Addressed This Visit Type 2 diabetes mellitus with diabetic neuropathy, with long-term current use of insulin ([facility]) - Primary Reports frequent hypoglycemic episodes for past 1 month. Previously her blood glucose were elevated and testing indicated poorly controlled T2 DM. Decrease glargine to 15 units. Discontinue Glipizide at this time. [employer] prescribed Jardiance for pt. Pt is unsure of dosage- will follow-up. Continue Metformin, Lantus, and Jardiance as directed. documented in this encounter [facility] 01-14-2024 Instructions Jyoti Wiggins NP - 01/14/2024 11:00 AM EDT OK to take Jardiance. Please call with dosage and instructions! Bring BG log with you to next visit! Call if you need anything! documented in this encounter [facility] 12-26-2023 History of Present illness Narrative Images from the original note were not included. Patient verbalized understanding of below information. Dean Gunter MD P [facility] Onc Nurses Pt has pleural effusion, suspicious for breast ca recurrence. Let's get thoracentesis and cytology. I will see her in 4-6 weeks to check on her. documented in this encounter [facility] 11-19-2023 Miscellaneous Notes Patient contacted our office stating that the [place] approved botox injections. Patient states that the [place] sent the approval to our office. Referral #: [id number]. Please advise Spoke with patient and obtained approval information and scheduled 12/27/2023 for botox injections Thank you. documented in this encounter [facility] 11-19-2023 Telephone encounter Note Patient contacted our office stating that the [place] approved botox injections. Patient states that the [place] sent the approval to our office. Referral #: [id number]. Please advise [facility] 11-19-2023 Telephone encounter Note Spoke with patient and obtained approval information and scheduled 12/27/2023 for botox injections [facility] 11-19-2023 Telephone encounter Note Thank you. [facility] Work Phone: 11-09-2023 History of Present illness Narrative Images from the original note were not included. 11/09/23 REASON FOR VISIT: Breast cancer surveillance follow up DIAGNOSIS: Kay Ly is a 83 y.o. female with a history of right breast invasive lobular carcinoma diagnosed in April 2021 and left breast invasive ductal carcinoma in 2002(see full summary below). INTERVAL HISTORY: Overall, the patient is feeling well and has no complaints. The patient denies any breast concerns including masses, skin changes, nipple discharge or nipple changes. Patient underwent left screening mammogram on 2023 at [facility]. Per the radiologist's report, postprocedural changes in the left breast. There are no suspicious masses, calcifications, or areas of architectural distortion. GYNECOLOGICAL HISTORY AND RISK ASSESSMENT: First day of last menstrual period: No LMP recorded. Patient is postmenopausal. Age when you started your period 13 Have you ever taken control pills? yes Have you ever taken Fertility Medication? no Number of pregnancies 5 Number of live births 5 Age at first 21 Did you breast feed? yes Age at menopause 55 Have you ever taken hormone replacement therapy? yes HEALTH HISTORY: The patient's past medical history, medications, and allergies have been reviewed in [facility]. PAST MEDICAL HISTORY: Past Medical History: Diagnosis Date Breast cancer ([facility] [facility]) 2001 LT Breast cancer ([facility] [place]) 07/26/2021 RIGHT Diabetes ([facility] [place]) Diabetes mellitus type 2, controlled ([facility] [place] [facility]) HTN (hypertension) Hyperlipidemia [place] (myocardial infarction) ([facility] [place]) Pneumonia Restless leg Stage 3a chronic kidney disease ([facility] [place]) 07/18/2022 PAST SURGICAL HISTORY: Past Surgical History: Procedure Laterality Date BREAST BIOPSY BREAST LUMPECTOMY Left 2001 RADIATION AND CHEMO BREAST LUMPECTOMY Right 08/12/2021 CATARACT EXTRACTION CHOLECYSTECTOMY COLECTOMY COLONOSCOPY 12/15/2015 Dr. Cortez COLONOSCOPY N/A 01/13/2021 Performed by Wilberto Hughes DO at [facility] HYSTERECTOMY MASTECTOMY Right MASTECTOMY W/ SENTINEL NODE BIOPSY Right 09/02/2021 OOPHORECTOMY REPAIR HERNIA VENTRAL. incarcerated N/A 08/16/2018 Performed by Kemar Beltre MD at [facility] MEDICATIONS: Current Outpatient Medications: alogliptin-metFORMIN 12.5-1,000 mg tablet, Take 12.5 mg by mouth daily., Disp: , Rfl: aspirin 81 mg, Take 1 tablet (81 mg total) by mouth in the morning., Disp: , Rfl: atorvastatin (LIPITOR) 80 mg tablet, Take 0.5 tablets (40 mg total) by mouth in the morning., Disp: , Rfl: b complex vitamins tablet, Take 1 tablet by mouth in the morning., Disp: 90 tablet, Rfl: 1 furosemide (LASIX) 40 mg tablet, Take 0.5 tablets (20 mg total) by mouth daily., Disp: , Rfl: glipiZIDE (GLUCOTROL XL) 5 mg 24 hr tablet, Take 1 tablet (5 mg total) by mouth in the morning., Disp: , Rfl: insulin glargine (LANTUS) 100 unit/mL injection, Inject 0.35 mL (35 Units total) under the skin in the morning., Disp: , Rfl: letrozole (FEMARA) 2.5 mg chemo tablet, TAKE 1 TABLET BY MOUTH EVERY DAY, Disp: 90 tablet, Rfl: 3 levothyroxine (SYNTHROID, LEVOTHROID) 50 MCG tablet, Take 1 tablet (50 mcg total) by mouth in the morning., Disp: , Rfl: metFORMIN (GLUCOPHAGE) 1000 mg tablet, Take 0.5 tablets (500 mg total) by mouth in the morning and 0.5 tablets (500 mg total) in the evening. Take with meals., Disp: , Rfl: pregabalin (LYRICA) 75 mg capsule, Take 2 capsules (150 mg total) by mouth in the morning and 2 capsules (150 mg total) before bedtime., Disp: , Rfl: rOPINIRole (REQUIP) 5 mg tablet, Take 1 tablet (5 mg total) by mouth in the morning and 1 tablet (5 mg total) at noon and 1 tablet (5 mg total) in the evening., Disp: , Rfl: losartan (COZAAR) 25 mg tablet, Take 1 tablet (25 mg total) by mouth daily. (Patient not taking: Reported on 11/09/2023), Disp: , Rfl: ALLERGIES: Allergies Allergen Reactions Lisinopril Cough FAMILY HISTORY Family History Problem Relation Age of Onset Hypertension Mother Heart attack Father Hypertension Father Lung cancer Father 80 +smoking Breast cancer Sister Jose L Breast Cancer Daughter Breast cancer Daughter 56 SOCIAL HISTORY Social History Socioeconomic History Marital status: Tobacco Use Smoking status: Former Current packs/day: 0.00 Average packs/day: 1 pack/day for 30.0 years (30.0 ttl pk-yrs) Types: Cigarettes Start date: 03/23/1993 Quit date: 03/23/2023 Years since quittin.6 Smokeless tobacco: Never Tobacco comments: 1 pack a month Vaping Use Vaping status: Never Used Substance and Sexual Activity Alcohol use: Yes Alcohol/week: 2.0 standard drinks of alcohol Types: 1 Glasses of wine, 1 Shots of liquor per week Comment: minimal- twice a month Drug use: No Sexual activity: Defer Partners: Male Social Determinants of Health Financial Resource Strain: Low Risk (08/31/2023) Received from [facility] Overall Financial Resource Strain (CARDIA) Difficulty of Paying Living Expenses: Not hard at all Food Insecurity: No Food Insecurity (10/19/2023) Hunger Screening Food Insecurity - Worry: Never True Food Insecurity - Inability: Never True Transportation Needs: No Transportation Needs (10/19/2023) PRAPARE - Transportation Lack of Transportation (Medical): No Lack of Transportation (Non-Medical): No Physical Activity: Insufficiently Active (05/10/2023) [facility] Exercise Vital Sign Days of Exercise per Week: 2 days Minutes of Exercise per Session: 20 min Stress: No Stress Concern Present (08/31/2023) Received from [facility] of Occupational Health - Occupational Stress Questionnaire Feeling of Stress : Not at all Social Connections: Moderately Integrated (08/31/2023) Received from [facility] Social Connection and Isolation Panel [NHANES] Frequency of Communication with Friends and Family: More than three times a week Frequency of Social Gatherings with Friends and Family: Twice a week Attends [employer] Services: More than 4 times per year Active Member of Clubs or Organizations: Yes Attends Club or Organization Meetings: More than 4 times per year Marital Status: Interpersonal Safety: Not At Risk (10/19/2023) Humiliation, Afraid, Rape, and Kick questionnaire Fear of Current or Ex-Partner: No Emotionally Abused: No Physically Abused: No Sexually Abused: No Housing Instability: Low Risk (10/19/2023) Housing Instability Housing Instability: No REVIEW OF SYSTEMS: A review of systems was performed. Pertinent patient information is noted below: Review of Systems Constitutional: Negative for chills, fatigue, fever and unexpected weight change. HENT: Negative for congestion, ear pain, hearing loss, postnasal drip, sneezing and sore throat. Eyes: Negative for pain and redness. Respiratory: Positive for shortness of breath. Negative for cough and wheezing. Cardiovascular: Negative for chest pain and palpitations. Gastrointestinal: Negative for abdominal pain, constipation, diarrhea, nausea and vomiting. Genitourinary: Negative for dysuria, frequency, menstrual problem, pelvic pain, vaginal bleeding and vaginal discharge. Musculoskeletal: Negative for arthralgias, back pain and myalgias. Skin: Negative for rash and wound. Neurological: Negative for dizziness, weakness, numbness and headaches. Psychiatric/Behavioral: Negative for confusion. The patient is not nervous/anxious. BREASTS: Denies any breast pain, breast lump, nipple discharge, skin changes PHYSICAL EXAMINATION BP 122/74 Pulse 68 Resp 16 GENERAL: no acute distress, well developed, well nourished. EYES: normal sclera/conjunctiva. ENT: hearing normal for conversation. NECK: no cervical lymphadenopathy, neck supple, trachea midline, no masses. LUNGS: clear to auscultation bilaterally, no wheeze, rhonchi or rales, normal respiratory effort. CARDIO: Regular rate and rhythm, S1 & S2 normal, no murmurs. BREAST (R): s/p mastectomy, no masses present, no skin changes, no tenderness, no supra/infraclavicular adenopathy, no axillary adenopathy. BREAST (L): no masses present, very min rtx changes, no tenderness, no nipple discharge, no nipple retraction, no supra/infraclavicular adenopathy, no axillary adenopathy, port upper chest. LYMPHATIC: no upper extremity lymphedema. ABDOMEN: soft, nontender, no masses palpable. MUSCULOSKELETAL: Gait - ambulates with assistance, no CVAT, no spinal tenderness, kyphosis. NEUROLOGIC: alert and oriented to time, place and person. PSYCH: judgement and insight good, mood/affect full range. RADIOGRAPHIC IMAGING BREAST IMAGING reviewed and discussed with the patient: Mammography screening unilateral left with CAD Narrative EXAM: MAMM SCREENING UNILAT LT W CAD, [...] masses, calcifications, or areas of architectural distortion. Impression No mammographic evidence of malignancy. BI-RADS: BI-RADS 2 - Benign Recommendation: Follow up per ACR recommendations or as clinically indicated. A letter of notification will be sent to the patient regarding the results. Finalized by Nacho Haywood MD on 2023 2:46 PM 2 c FU ACR ASSESSMENT: DIAGNOSIS: ICD-10-CM 1. 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) C77.3 3. Status post right mastectomy Z90.11 4. History of cancer of left breast Z85.3 5. Port-A-Cath in place Z95.828 6. Encounter for screening mammogram for breast cancer Z12.31 Kay Ly is a 83 y.o. female who was diagnosed with right breast invasive lobular carcinoma in April 2021. Patient is s/p right mastectomy and sentinel lymph node biopsy, adjuvant chemotherapy,adjuvant radiation, and hormone therapy. Patient also has history of left breast IDC in 2002 and is s/p left lumpectomy/ALND, chemotherapy, radiation and Tamoxifen x 5 years. TREATMENT HISTORY: Breast Cancer: Disease Characteristics Diagnosis Date: 05/04/2021 Diagnosis:right breast invasive lobular carcinoma Grade: I TNM stage: at least pT2N1 Tumor size: 6 mm on biopsy => 2.2 cm on lumpectomy with multiple margins having additional ILC => 3.6 cm - final based on lumpectomy and mastectomy (additional 1.4cm) Lymph Node Status: 3/11 nodes positive (non-sentinel lymph nodes in mastectomy specimen) Tumor Markers: Estrogen Receptor Positive (>95%), Progesterone Receptor Positive (10-20%) and Her2 Negative (IHC score 1+) Treatment History To Date: Surgery: 08/12/2021 Right lumpectomy, 09/02/2021 Right mastectomy/SLN biopsy Chemotherapy: Taxotere and Cytoxan x 4 Radiation: 02/20/2022-04/05/2022 6040 cGy Oncotype/Recurrence Score: Mammaprint = high risk Endocrine Therapy: Letrozole (started May 2021) Genetic Testing: no pathogenic mutations Breast Cancer: Disease Characteristics Diagnosis Date: 2002 Diagnosis:left breast invasive ductal carcinoma Stage: T2 N0 Grade: high Tumor size: 3.1 cm Lymph Node Status: 0/10 nodes Tumor Markers: Estrogen Receptor Positive and Progesterone Receptor Positive, Her 2 + weakly Positive Treatment History To Date: Surgery: 04/22/03 Left lumpectomy, 05/25/03 left axillary lymph node dissection (Dr. Chávez) Chemotherapy: AC x 4 Radiation: completed: 09/16/03-11/04/03 6040 cGy Oncotype/Recurrence Score: N/A Endocrine Therapy: Tamoxifen (10/2003-04/2005 d/c), Anastrozole x 5 years Genetic Testing: N/A PLAN OF CARE: Breast imaging and referring clinician notes were reviewed. Patient's most recent imaging which was performed on shows no suspicious lesions in her left breast. The patient's breast density score is C. Patient doing well with no evidence of active disease. Patient is tolerating endocrine therapy as listed above with no significant side effects. As she has completed all her therapy, request for port removal has been made. This is scheduled for next week. I discussed the procedure, risks, and follow-up. All questions were answered and consent obtained. The patient's clinical breast exam, as well as her recent radiology findings, were reviewed. Patient will continue surveillance with monthly self-breast exams, clinical breast exams every 6 months, yearly mammograms and yearly breast MRI (staggered every 6 months). Patient will follow up in 1 year with mammogram and appointment. Order was placed for breast MRI which is due in July 17, 2024. We discussed the importance of a healthy diet and lifestyle, exercise and weight management, and stress reduction.The patient verbalized understanding of the treatment plan and was encouraged to contact the clinic with any questions or concerns. Total time spent was 29 minutes: Preparing to see the patient (e.g., review of tests) Obtaining and/or reviewing separately obtained history Performing a medically appropriate examination and/or evaluation Counseling and educating the patient/family/caregiver Ordering medications, tests, or procedures Referring and communicating with other health resident care coordinator (not separately reported) Documenting clinical information in the electronic or other health record Independently interpreting results (not separately reported) and communicating results to the patient/family/caregiver Bo Rincon MD [facility] Breast Surgery [phone] documented in this encounter [facility] 11-06-2023 History of Present illness Narrative [facility] Neurology Office Note 11/05/2023 8:57 PM Patient info: Kay Ly is a 83 y.o. female Account No.: [id number] Acct: : 1940 PCP: SHAIKH ISELA MD Chief Complaint: Patient, 83 year old right hand dominant female, presents for follow up Neurological evaluation regarding peripheral sensory-motor polyneuropathy. Last seen in the office on 07/06/23 Kay is present in the office today by herself. Interval Hx: Labs ordered last office visit (07/06/23) Vitamin B2, Vitamin B6, Vitamin B12 have not been completed. EMG/NCV study of the LE's was completed on 08/02/23. 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 Referred to PT for the ulnar neuropathy at the right elbow, as well as the torticollis. Referred her to Dr. Rosales at the [facility] for potential botox injections regarding the torticollis. She has been participating in Physical Therapy, who is concerned the numbness into the right hand, including digits 4 and 5, is coming from an issue in her cervical spine. She was able to be evaluated by Dr. Rosales, who did recommend BOTOX in treatment of the torticollis. Unfortunately, there has been some hang-ups with her insurance coverage, so she has not received any BOTOX injections thus far. 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 Follow up 07/06/23 EMG/NCV study ordered last office visit (07/18/22) was not completed. 08/08/22 Labs: Copper level, Folate, TSH, ESR, CRP, and Serum Protein Electrophoresis were normal; Lyme was (-) Vitamin B12 was low at 123 (range: 180-914) and Vitamin B6 was low at 18.7 (range: 20.0-125.0) HgbA1c was 7.4% in November (2022) Kay complains of numbness/tingling into the right hand, [...] it, as it causes pain and discomfort. Past Medical Hx: See EMR Surgical Hx: [...] hypothyroidism Hem/Onc: Negative Allergy/immunology: Negative Vitals: BP: 150/86 HR: 79 Weight: 93.4 kg Physical Exam: General: well groomed, pleasant, [...] and mildly reduced bilateral arm swing ASSESSMENT: Kay is an 83 year old right hand dominant female with a hx of DM, hypothyroidism, HTN, CKD, breast CA, hyperlipidemia, and RLS who has a peripheral polyneuropathy, as well as torticollis and paresthesias into the right hand/digits 4 and 5. Previous labs have shown a Vitamin B6 and Vitamin B12 deficiency. PLAN: Restart Vitamin B-complex, 1 tablet daily Will order an EMG/NCV study of the RUE Hopefully she can get approved for BOTOX injections for her cervical spinal region Continue with Physical Therapy Follow up in the office in 3-4 months Electronically Signed by: Kayy Hines PA-C 11/07/23 1342 documented in this encounter [facility] 09-20-2023 History of Present illness Narrative Patient is here for follow up with Dr. Lyric Arenas with port removal per Dr. Rincon.F/u in 6 months. CBC, CMP. Patient given calendar, verbalized understanding of future appointments. documented in this encounter [facility] 09-20-2023 History of Present illness Narrative Images from the original note were not included. [facility] 09/20/23 Kay Ly is a 82 y.o. year old female seen today in the oncology clinic. Chief Complaint Patient presents with Follow-up History of Present Illness: Mrs. Ly is a 82 y.o. female with history of left-sided breast cancer in 1999, underwent chemotherapy followed by surgery and radiation and was on Arimidex for about 5 years. Afterwards she has been getting routine mammograms. She felt a lump over her right breast about 2 months ago, 1 cm asymmetry was found in her mammogram over right breast, in the subareolar region around 06:00 o'clock. Biopsy of the lesion showed save lobular carcinoma, grade 1, ER strongly positive LA weakly positive and HER2 negative. She is referred to Medical Oncology for further evaluation. According to the patient, she recently underwent CT scan in outside hospital which was negative for metastasis (record reviewed) Letrozole 05/2021- Patient status post mastectomy 08/2021: Final path showed T2 disease, 3/10 lymph nodes involved. Margins are clear. Adjuvant chemotherapy with TC 10/2021- Interval history: The patient completed her adjuvant TC treatment then adjuvant radiation therapy in March 2022. Currently she is on letrozole and tolerated very well. Her weight was up to 230 about a month ago, responded well to diuresis, breathing was slightly better now she is having shortness of breath again. The patient is compliant with her letrozole treatment daily. Fatigue is relatively stable. No significant diarrhea or peripheral neuropathies. She has strong family history of breast cancer. Her daughter had breast cancer and underwent bilateral mastectomy. One of her sister also diagnosed with breast cancer recently underwent bilateral mastectomy. No new breast issues. No new bone pains. Past Medical History: Diagnosis Date Breast cancer ([facility]) 2001 LT Breast cancer ([facility]) 07/26/2021 RIGHT Diabetes ([facility]) Diabetes mellitus type 2, controlled ([facility]) HTN (hypertension) Hyperlipidemia [place] (myocardial infarction) ([facility]) Pneumonia Restless leg Stage 3a chronic kidney disease ([facility]) 07/18/2022 Past Surgical History: Procedure Laterality Date BREAST BIOPSY BREAST LUMPECTOMY Left 2001 RADIATION AND CHEMO BREAST LUMPECTOMY Right 08/12/2021 CATARACT EXTRACTION CHOLECYSTECTOMY COLECTOMY COLONOSCOPY 12/15/2015 Dr. Cortez COLONOSCOPY N/A 01/13/2021 Performed by Wilberto Hughes DO at [facility] HYSTERECTOMY MASTECTOMY Right MASTECTOMY W/ SENTINEL NODE BIOPSY Right 09/02/2021 OOPHORECTOMY REPAIR HERNIA VENTRAL. incarcerated N/A 08/16/2018 Performed by Kemar Beltre MD at [facility] Family History Problem Relation Age of Onset Hypertension Mother Heart attack Father Hypertension Father Lung cancer Father 80 +smoking Breast cancer Sister Jose L Breast Cancer Daughter Breast cancer Daughter 56 Social History Socioeconomic History Marital status: Tobacco Use Smoking status: Former Current packs/day: 0.00 Average packs/day: 1 pack/day for 30.0 years (30.0 ttl pk-yrs) Types: Cigarettes Start date: 03/23/1993 Quit date: 03/23/2023 Years since quittin.4 Smokeless tobacco: Never Tobacco comments: 1 pack a month Vaping Use Vaping status: Never Used Substance and Sexual Activity Alcohol use: Yes Alcohol/week: 2.0 standard drinks of alcohol Types: 1 Glasses of wine, 1 Shots of liquor per week Comment: minimal- twice a month Drug use: No Sexual activity: Defer Partners: Male Social Determinants of Health Financial Resource Strain: Low Risk (08/31/2023) Received from [facility] Overall Financial Resource Strain (CARDIA) Difficulty of Paying Living Expenses: Not hard at all Food Insecurity: No Food Insecurity (08/31/2023) Received from [facility] Hunger Vital Sign Worried About Running Out of Food in the Last Year: Never true Ran Out of Food in the Last Year: Never true Transportation Needs: No Transportation Needs (08/31/2023) Received from [facility] PRAPARE - Transportation Lack of Transportation (Medical): No Lack of Transportation (Non-Medical): No Physical Activity: Insufficiently Active (05/10/2023) [facility] Exercise Vital Sign Days of Exercise per Week: 2 days Minutes of Exercise per Session: 20 min Stress: No Stress Concern Present (08/31/2023) Received from [facility] [place] of Occupational Health - Occupational Stress Questionnaire Feeling of Stress : Not at all Social Connections: Moderately Integrated (08/31/2023) Received from [facility] Social Connection and Isolation Panel [NHANES] Frequency of Communication with Friends and Family: More than three times a week Frequency of Social Gatherings with Friends and Family: Twice a week Attends Latter Day Services: More than 4 times per year Active Member of Clubs or Organizations: Yes Attends Club or Organization Meetings: More than 4 times per year Marital Status: Received from [facility] [place] Safety & Environment Housing Instability: Low Risk (08/31/2023) Received from [facility] Housing Stability Vital Sign Unable to Pay for Housing in the Last Year: No Number of Places Lived in the Last Year: 1 In the last 12 months, was there a time when you did not have a steady place to sleep or slept in a mcfp (including now)?: No Allergies Allergen Reactions Lisinopril Cough Medication List Accurate as of September 20, 2023 10:47 AM. If you have any questions, ask your nurse or doctor. Medications Continued This Visit alogliptin-metFORMIN 12.5-1,000 mg tablet Refills: 0 Dose: 12.5 mg aspirin 81 mg Refills: 0 Dose: 81 mg atorvastatin 80 mg tablet Refills: 0 Dose: 80 mg Commonly known as: LIPITOR carvediloL 3.125 mg tablet Refills: 0 Dose: 12.5 mg Commonly known as: COREG furosemide 40 mg tablet Refills: 0 Dose: 20 mg Commonly known as: LASIX hydroCHLOROthiazide 25 mg tablet Refills: 0 Commonly known as: HYDRODIURIL insulin glargine 100 unit/mL injection Refills: 0 Dose: 35 Units Commonly known as: LANTUS letrozole 2.5 mg chemo tablet Quantity: 90 tablet Refills: 3 Signed by: Dr. Dean Gunter MD TAKE 1 TABLET BY MOUTH EVERY DAY Commonly known as: FEMARA levothyroxine 50 MCG tablet Refills: 0 Dose: 50 mcg Commonly known as: SYNTHROID, LEVOTHROID losartan 25 mg tablet Refills: 0 Dose: 25 mg Commonly known as: COZAAR metFORMIN 1000 mg tablet Refills: 0 Dose: 500 mg Commonly known as: GLUCOPHAGE pregabalin 75 mg capsule Refills: 0 Dose: 150 mg Commonly known as: LYRICA rOPINIRole 3 mg tablet Refills: 0 Dose: 5 mg Commonly known as: REQUIP Review of Symptoms: Review of Systems Constitutional: Positive for fatigue. All other systems reviewed and are negative. ECO- Symptomatic; fully ambulatory Physical Exam: General: Well appearing, in no acute distress. Vitals: BP 143/71 Pulse 89 Temp 36.5 C (97.7 F) (Oral) Resp 24 Ht 157.5 cm (5' 2.01 ) Wt 94.6 kg (208 lb 9.6 oz) SpO2 93% BMI 38.14 kg/m Body mass index is 38.14 kg/m . Eyes: No icterus, no conjuctival erythema ENT: Pharyngeal mucosa was moist without exudate and inflammation or ulcerations. Tongue was midline and appeared normal.Gums were unremarkable. Lymph nodes: No palpable adenopathy Neck: Supple. There were no masses, tenderness. Trachea was midline. Respiratory: Respirations were non-labored. Lungs were clear to auscultation. There was no dullness to percussion. Cardiac: Regular rate and rhythm, S1 and S2 sounds were normal. There were no rubs or gallops. Abdomen: Soft, non-tender, Nondistended. Bowel sounds audible in all four quadrants. There were no palpable masses. The liver and spleen were not enlarged. Extremities: There was no clubbing, Cyanosis, edema. Skin: There was no obvious rashes, bruising or ecchymosis. Back exam: No palpable tenderness was appreciated. Neurologic: There was no unilateral weakness. Mood and affect: Normal. Breast exam: Right mastectomy change without evidence of chest wall recurrence. Start tissue is unremarkable. No evidence of bilateral lymphadenopathy. Left breast is unremarkable. Recent Imaging: No results found. Recent Labs: Recent Results (from the past 336 hour(s)) Comprehensive metabolic panel Collection Time: 09/18/23 10:45 AM Result Value Ref Range Sodium 139 134 - 146 mmol/L Potassium, Bld 3.4 (L) 3.5 - 5.0 mmol/L Chloride 101 98 - 109 mmol/L CO2 27 22 - 32 mmol/L Anion gap 11 5 - 15 mmol/L BUN 22 5 - 27 mg/dL Creatinine 1.15 (H) 0.40 - 1.00 mg/dL Glucose 175 (H) 65 - 99 mg/dL Calcium 8.7 8.5 - 10.5 mg/dL Total Protein 6.7 6.0 - 8.0 g/dL Albumin 3.5 3.2 - 5.3 g/dL Alkaline Phosphatase 89 39 - 130 U/L AST 19 0 - 41 U/L ALT 17 0 - 31 U/L Total bilirubin 0.7 0.3 - 1.2 mg/dL eGFR (CKD-EPI)non-race dependent 48 (L) >59 ml/min/1.73sq.m CBC auto differential Collection Time: 09/18/23 10:45 AM Result Value Ref Range White Blood Cells 7.3 4.0 - 11.0 X10E9/L RBC count 3.61 (L) 3.80 - 5.20 X10E12/L Hemoglobin 10.6 (L) 11.7 - 15.5 g/dL Hematocrit 31.5 (L) 35 - 47 % MCV 87 80 - 100 fL MCH 29.4 27 - 34 pg MCHC 33.6 32 - 36 g/dL RDW 18.2 (H) 11.5 - 15.0 % Platelets 119 (L) 150 - 450 X10E9/L MPV 8.3 7 - 12 fL % neutrophils 83.3 % % lymphocytes 9.1 % % monocytes 5.4 % % eosinophils 1.3 % % Basophils 0.9 % Neutrophils Absolute (A) 6.1 1.5 - 6.6 X10E9/L Lymphocytes Absolute 0.7 (L) 1.0 - 3.5 X10E9/L Monocytes Absolute 0.4 0 - 0.9 X10E9/L Eosinophils Absolute 0.1 0.0 - 0.4 X10E9/L Basophils Absolute 0.1 0.0 - 0.2 X10E9/L Diagnosis Problem list: Problem List Items Addressed This Visit Immune and Lymphatic 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) Other 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, estrogen receptor positive (CMS-HCC) - Primary Impression: Right-sided breast cancer, lobular invasive carcinoma, grade 1 ERPR positive HER2 negative Status post mastectomy on the right side, 08/2021, T2 N1 disease MammaPrint high risk Remote history of Left-sided breast cancer diagnosed and treated in 1999, status post lumpectomy radiation and chemotherapy. Strong family history of breast cancer Plan: The patient completed Taxotere/Cytoxan treatment about a month ago, recover well from chemotherapy. Status post radiation therapy. Physical examination today is unremarkable, no suspicious chest wall lesions. The patient resumed Femara after radiation therapy and tolerating very well. Patient's liver enzymes are elevated for unknown reason 05/2022 Repeat lab showed liver enzymes normalized in June 2022. Recent blood work normal liver enzymes. CBC showed slight anemia with hemoglobin around 10.6. Breast MRI June 2023 was unremarkable, okay with port removal. Next mammogram should be December 2023. Follow-up with me in 6 months CBC CMP prior to visit. Thank you. Dean Gunter MD Please note that portions of this note were generated using voice recognition [employer] dictation software. Although every effort was made to ensure the accuracy of this automated tip finisher, some errors in tip finisher may have occurred. CC: Patient Care Team: Shaikh Isela MD as PCP - General (Internal Medicine) Dean Gunter MD as Consulting Physician (Hematology) Jewels Finch DO as Consulting Physician (Radiation Oncology) Gladys Alfaro [facility] as Genetic Counselor (Oncology) Bo Rincon MD as Consulting Physician (Breast Surgery) Gladys Huddleston DO as Referring Physician (Family Medicine) PCP:SHAIKH ISELA Referring MD: Rebecca Hirsch MD documented in this encounter [facility] 09-20-2023 Instructions Dean Gunter MD - 09/20/2023 10:00 AM EDT Ok with port removal. F/u in 6 months. CBC, CMP. documented in this encounter [facility] 09-18-2023 History of Present illness Narrative Port draw completed per protocol. documented in this encounter [facility] 08-15-2023 Miscellaneous Notes Emma from [facility] called to get the office note from 08 01 23 faxed over for patient care soon as possible. Fax number is [phone] Emma [phone] EXT [phone] Faxed last office note from 08 01 23 to [facility]. Fax #: [phone] Confirmation received documented in this encounter [facility] 08-15-2023 Telephone encounter Note Emma from [facility] called to get the office note from 08 01 23 faxed over for patient care soon as possible. Fax number is [phone] Emma [phone] EXT [phone] [facility] 08-15-2023 Telephone encounter Note Faxed last office note from 08 01 23 to [facility]. Fax #: [phone] Confirmation received [facility] 08-08-2023 History of Present illness Narrative Port flushed per protocol. documented in this encounter [facility] 08-03-2023 Miscellaneous Notes CPT 51281 for diagnostic code G24.3 CPT 09761 and 01416 for diagnostic code G24.1 CPT 79295 for diagnostic code G24.1 and M79.18 Authorize 300 units. During 1st injection: Will use maximum of 100 unit (1 vial) on first session. 1:1 dilution (1 ml NS for 1 vial of 100 unit). Will need EMG machine and 26 G (green) Ambu Neuroline Innoject needle. documented in this encounter [facility] 08-03-2023 Telephone encounter Note CPT 53025 for diagnostic code G24.3 CPT 25401 and 70442 for diagnostic code G24.1 CPT 39879 for diagnostic code G24.1 and M79.18 Authorize 300 units. During 1st injection: Will use maximum of 100 unit (1 vial) on first session. 1:1 dilution (1 ml NS for 1 vial of 100 unit). Will need EMG machine and 26 G (green) Ambu Neuroline Innoject needle. [facility] [employer] Work Phone: 08-01-2023 History of Present illness Narrative Images from the original note were not included. [address] [facility] [address] Patient: Kay Ly Date of : 1940 Encounter Date: 08/01/2023 Patient Care Team: Shaikh Isela MD as PCP - General (Internal Medicine) Dean Gunter MD as Consulting Physician (Hematology) Jewels [...] to display PTSD: No data to display [place]: No data to display YAZ-10: No data to display Past Medical, Family, Surgical, and Social History Update: The following portions of the patient's history were reviewed and updated as appropriate: allergies, current medications, past family history, past medical history, past social history, past surgical history and problem list. Past Medical History: Diagnosis Date Breast cancer ([facility]) 2001 LT Breast cancer ([facility]) 07/26/2021 RIGHT Diabetes ([facility]) Diabetes mellitus type 2, controlled ([facility]) HTN (hypertension) Hyperlipidemia [place] (myocardial infarction) ([facility]) Pneumonia Restless leg Stage 3a chronic kidney disease ([facility]) 07/18/2022 Family History Problem Relation Age of [...] Dr. Cortez COLONOSCOPY N/A 01/13/2021 Performed by Wilberto Hughes DO at [facility] HYSTERECTOMY MASTECTOMY Right MASTECTOMY W/ SENTINEL NODE BIOPSY Right 09/02/2021 OOPHORECTOMY REPAIR HERNIA VENTRAL. incarcerated N/A 08/16/2018 Performed by Kemar Beltre MD at [facility] Current Outpatient Medications Medication Sig Dispense Refill [...] No dysdiadochokinesia, bradykinesia or resting tremor. MDS-UPDRS: @FLOW([id number] 32,[id number], [id number],210 179987,[id number],[id number],298881 137,[id number] ,[id number],21 [id number],[id number],09394 8142,[id number],[id number],[id number] 5,[id number],[id number],2 [id number],[id number],[id number],2102 81501,890214676,[id number],6714325 78,[id number],[id number]) @ TETRAS: @FLOW([id number],50124,90792,156 95,01694,07591,27051,47549,82718, 65637,84443,83578,02602,26311,157 24,61382,75787,56610,11961,82908, 24392,75371,96697,33547,55003,157 58,95578,16084,46845,90234,24161, 95470,09046,86200,08243,84053,159 81,60284,81958,36358,77772,13273, 30583,39820,33658,17170,84468)@ Assessment and Plan: Diagnoses and all orders [...] for your understanding. documented in this encounter [facility] 07-24-2023 Miscellaneous Notes Received fax from [facility]. PT Plan of Care has been placed in provider's folder for signature. documented in this encounter [facility] 07-24-2023 Telephone encounter Note Received fax from [facility]. PT Plan of Care has been placed in provider's folder for signature. [facility] 07-13-2023 Miscellaneous Notes Summary: MRI results At direction of radiologist, patient contacted by phone and informed that breast MRI completed yesterday demonstrated no abnormal findings. Next mammogram to be completed in 10/2023 and no future MRI studies are needed per radiologist. Patient voices understanding. documented in this encounter [facility] 07-13-2023 Telephone encounter Note Summary: MRI results At direction of radiologist, patient contacted by phone and informed that breast MRI completed yesterday demonstrated no abnormal findings. Next mammogram to be completed in 10/2023 and no future MRI studies are needed per radiologist. Patient voices understanding. [facility] 07-10-2023 Miscellaneous Notes Please fax patients : (EMG NCV (Order [id number]) To: [facility] Fax #:[phone] Phone #:[phone] Who is calling: Lorraine Faxed included information to [phone] on 07/11/23 at 17:44 - demographics - EMG NCV (Order # [id number]) on 07/06/2023 - 07/06/23 OV notes from Kayy Hines documented in this encounter [facility] 07-10-2023 Telephone encounter Note Please fax patients : (EMG NCV (Order [id number]) To: [facility] Fax #:[phone] Phone #:[phone] Who is calling: Lorraine [facility] 07-10-2023 Telephone encounter Note Faxed included information to [phone] on 07/11/23 at 17:44 - demographics - EMG NCV (Order # [id number]) on 07/06/2023 - 07/06/23 OV notes from Kayy Hines [facility] 07-06-2023 Miscellaneous Notes Workqueue referral for Botox injections New patient referral received. 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 documented in this encounter [facility] 07-06-2023 Telephone encounter Note Workqueue referral for Botox injections New patient referral received. 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 PLEASE REVIEW PLAN OVER THE PHONE AND ADVISE PATIENT TO BRING UPDATED INSURANCE INFORMATION TO THEIR NEW PATIENT APPOINTMENT [facility] 07-06-2023 Telephone encounter Note Please see above referral [facility] 07-06-2023 Telephone encounter Note We can add this patient on for a follow-up with me on July 31, at 12:00 p.m.. After that, I can send Botox authorization instructions. [facility] Work Phone: 07-06-2023 Telephone encounter Note Per the provider add this patient on for a follow-up with me on July 31, at 12:00 p.m.. Patient called and accepted the appointment date and time. [facility] 07-06-2023 History of Present illness Narrative [facility] Neu[facility] Office Note 07/05/2023 8:49 AM Patient info: Kay Ly is a 82 y.o. 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 Last seen in the office on 07/18/[address] Avila Kay is present in the office today by herself. Interval Hx: EMG/NCV study ordered last office visit (07/18/22) was not completed. 08/08/22 Labs: Copper level, Folate, TSH, ESR, CRP, and Serum Protein Electrophoresis were normal; Lyme was (-) Vitamin B12 was low at 123 (range: 180-914) and Vitamin B6 was low at 18.7 (range: 20.0-125.0) HgbA1c was 7.4% in November (2022) Kay complains of numbness/tingling into the right hand, [...] to have started roughly 5 years ago (2018) in the distal lower extremities, and were [...] and mildly reduced bilateral arm swing ASSESSMENT: Kay is an 82 year old right hand [...] refer her to Dr. Rosales at the [facility] for potential botox injections regarding the torticollis Follow up in the office in 4 months Electronically Signed by: Kayy Hines PA-C 07/11/23 1059 documented in this encounter [facility] 07-04-2023 History of Present illness Narrative [...] week. Associated Problem(s): Coronary artery disease involving [place] coronary artery 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 angina pectoris (CMS/HCC) Asymptomatic, moderate 2 vessel CAD on LHC noted in 2019. On ASA, BB, Statin. Denies CP, SOB, palpitations. Ventricular bigeminy noted on casework specialist while she was in ED - has an appointment with Cardiology next week. Associated Problem(s): Ventricular bigeminy seen on casework specialist Noted on recent ED visit. Moderate 2 vessel CAD on LHC in 2019. On ASA, Statin. Did not require PCI or CABG. Has been doing well from cardiac point of view - has an appointment with [facility] cardiology next week. Denies CP, SOB, palpitations. [...] [facility] for T2 DM Subjective Patient ID: Kay Ly is a 82 y.o. female who presents for Hospital Follow-up. Patient was sent to ED last appointment for hypoxic respiratory failure and was admitted at [facility] for acute on chronic diastolic HF. [...] 6.25 MG tablet Coronary artery disease involving bad [place] coronary artery 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 angina pectoris (CMS/HCC) Asymptomatic, moderate 2 vessel CAD on [facility] noted in 2019. On ASA, BB, Statin. Denies CP, SOB, palpitations. Ventricular bigeminy noted on casework specialist while she was in ED - has an appointment with Cardiology next week. Type 2 diabetes mellitus with diabetic polyneuropathy (HCC) (CMS/HCC) - Primary On Lyrica for Neuropathy. C/w [...] capsule Stage 3a chronic kidney disease (HCC) ([facility]) CKD 3 - due to HTN, T2 DM. Cr at baseline. Relevant Medications furosemide (Lasix) 20 MG tablet Other Relevant Orders Basic metabolic panel Chronic diastolic HF (heart failure) ([facility]) Recent hospital admission for it, new diagnosis. Required IV diuresis for volume overload resulting in respiratory failure with hypoxia. She has not been using Lasix since ED visit on the . Asked patient to resume it but at a lower dose. Educated on dietary restrictions. Follow up appointment with Cardiology next week. Ventricular bigeminy seen on casework specialist Noted on recent ED visit. Moderate 2 vessel CAD on [facility] in 2019. On ASA, Statin. Did not require PCI or CABG. Has been doing well from cardiac point of view - has an appointment with [facility] cardiology next week. Denies CP, SOB, palpitations. Other Visit Diagnoses Type 2 diabetes mellitus with diabetic neuropathy, unspecified ([facility]) Relevant Medications pregabalin (Lyrica) 150 MG capsule Follow up in about 4 weeks (around 08/01/2023). documented in this encounter [facility] 06-28-2023 History of Present illness Narrative Port flush per facility protocol. Brisk blood return noted, flushed with NS, heparinized, de accessed, band aid applied. Appointment calendar provided. Discharged in stable condition. [facility] [employer] 06-25-2023 Nurse Note Pt was educated on discharge instructions and follow up appointments. Pt was given the phone number to Gurjit on her AVS, was instructed to call if there are any questions or concerns with the oxygen. IV was removed, and belongings were packed - cellphone, library serials assistant, coat. Pt is waiting on portable O2 before discharging home. All questions have been answered at this time. [facility] Plan of care note Problem: Knowledge Deficit Goal: Patient/patient communications representative demonstrates understanding of disease process, treatment plan, medications, and discharge instructions Description: INTERVENTIONS 1. Complete learning assessment and assess knowledge base 2. Provide teaching at level of understanding 3. Provide teaching via preferred learning method(s) Outcome: Progressing Note: Evaluation of progress towards goal: pt educated on treatment plan and discharge plan. Will continue to update pt prn. All questions answered at this time. [facility] 06-25-2023 Miscellaneous Notes Problem: Knowledge Deficit Goal: Patient/patient communications representative demonstrates understanding of disease process, treatment plan, medications, and discharge instructions Description: INTERVENTIONS 1. Complete learning assessment and assess knowledge base 2. Provide teaching at level of understanding 3. Provide teaching via preferred learning method(s) Outcome: Progressing Note: Evaluation of progress towards goal: pt educated on treatment plan and discharge plan. Will continue to update pt prn. All questions answered at this time. DISCHARGE PLANNING NOTE Telephone call received from Tamara at [facility], to inform insurance will cover the oxygen. Portable will be delivered to hospital and then home set up scheduled with pt. Contact info added to SHABNAM STAUFFER informed and will update pt. Informed pt cannot DC until the portable is delivered at bedside. DISCHARGE PLANNING NOTE Informed by [facility] that they do not accept pt's insurance. New home oxygen referral sent to [facility]. Pt and staff updated. Await acceptance. Occupational Therapy Evaluation Discharge Recommendations OT Recommendations : Home Home Recommendations: Intermittent caregiver support for: (assist as prior) Post Discharge Therapy Recommendations: None 6 Clicks: Daily Activity Putting on and taking off regular lower body clothing?: A little Bathing (including washing, rinsing, drying)?: A little Toileting, which includes using toilet, bedpan or urinal?: None Putting on and taking off regular upper body clothing?: None Taking care of personal grooming such as brushing teeth?: None Eating meals?: None Scoring Daily Activity Raw Score: 22 CMS G Code Modifier: CJ Therapy Plan/HPI/occupational profile throughout eval Need for skilled Occupational Therapy to address deficits in ADL independence and functional mobility due to a status decline resulting from hypoxia. A moderate complex eval was completed. Past Surgical History: Procedure Laterality Date BREAST BIOPSY BREAST LUMPECTOMY Left 2001 RADIATION AND CHEMO BREAST LUMPECTOMY Right 08/12/2021 CATARACT EXTRACTION CHOLECYSTECTOMY COLECTOMY COLONOSCOPY 12/15/2015 Dr. Cortez COLONOSCOPY N/A 01/13/2021 Performed by Wilberto Hughes DO at [facility] HYSTERECTOMY MASTECTOMY Right MASTECTOMY W/ SENTINEL NODE BIOPSY Right 09/02/2021 OOPHORECTOMY REPAIR HERNIA VENTRAL. incarcerated N/A 08/16/2018 Performed by Kemar Beltre MD at [facility] Past Medical History: Diagnosis Date Breast cancer ([facility] [place]) 2001 LT Breast cancer ([facility] [place] 07/26/2021 RIGHT Diabetes [facility] [place]) Diabetes mellitus type 2, controlled ([facility] [place]) HTN (hypertension) Hyperlipidemia [place] (myocardial infarction) ([facility] [place]) Pneumonia Restless leg Stage 3a chronic kidney disease ([facility] [place]) 07/18/2022 No Current Skilled OT: Patient refusal OT Frequency: (1X for eval) Assessment Patient Assessment Patient Response to Treatment: Tolerated evaluation without adverse reaction Mood/Affect: Appropriate for circumstances Rehab Prognosis: Good Visit RN Communication: Yes Medical Record Reviewed: Yes OT Type of Visit: Evaluation Precautions Activity: early mobility pass, Ok to eval per Ofelia HAQUE Equipment: Non skid socks, walker, , O2 Telemetry/Panel Edge Sealer: Yes Oxygen Used: 2 L via nasal cannula Pain Assessment Pain Assessment: No/denies pain Home Living Type of Home: Apartment (1st floor. laundry is located in another unit) Home Layout: One level Stairs to Enter: 2 Bathroom Shower/Tub: Tub/shower unit Bathroom Toilet: Standard Bathroom Equipment: Grab bars in shower Home Equipment: Rolling walker, Cane (life alert) Prior Function Lives With: Alone Receives Help From: Family (sister comes over to help) Level of Mobility: Independent with ADLs and functional transfers or gait (ambulated with RW) Homemaking Assistance: Independent (sisters comes and they take laundry her to place. still driving. still does the grocery shopping with a scooter) ADL / IADL Hand Dominance: Right Eating Assistance: Independent Grooming Assistance: Standby assist (seated to wash face and complete oral care) Bathing/Showering Assistance: Contact guard assist Toilet/Commode Assistance: Standby assist UE Dressing Assistance: Setup LE Dressing Assistance: Standby assist Footwear Assistance: Standby assist Other: patient ed on role and goals of OT, agreeable to OT eval. patient completes upper body sponge bath and oral care while seated on edge of bed, further ADl assessment is based on clinical judgement and observation of pt's ability to complete ROM, strength, endurance, sit and stand balance, functional mobility status and safety awareness Home Management - IADL Other: patient ed on role and goals of OT, agreeable to OT eval. patient completes upper body sponge bath and oral care while seated on edge of bed, further ADl assessment is based on clinical judgement and observation of pt's ability to complete ROM, strength, endurance, sit and stand balance, functional mobility status and safety awareness Hearing / Speech / Vision Hearing: Within Functional Limits Speech: Within Functional Limits Current Vision: (galssess for driving) Cognition Orientation Level: Oriented X4 Sensation Overall Sensation Status: (numbness and tingling in bilateral LE's and hands) Bed Mobility Supine to Sit: Stand by assist, Supervision Other: remains seated on edge of bed at [facility] with needs with in reach Transfers Sit to Stand: Standby assist Stand to Sit: Standby assist Other: completes with use of AE Balance Sitting Balance: Static: Good Sitting Balance: Dynamic: Good Standing Balance: Static: Good, Fair Standing Balance: Dynamic: Fair Other: functional mobility completed a short distance with use of RW and SBA in order to increase strength and endurance as pt prepares for return to community RUE Assessment: (generalized weakness) LUE Assessment: (generalized weakness) Activity Tolerance Endurance: Tolerates <30 minutes activity WITHOUT vital sign changes Plan Occupational Therapy Care Plan Occupational Therapy Care Plan (Active) There are no active problems. Occupational Therapy Care Plan (Resolved) There are no resolved problems. Principal Problem: Hypoxia Active Problems: Stage 3a chronic kidney disease (CMS-HCC) Benign essential HTN Diabetes mellitus ([facility] [place]) Mixed hyperlipidemia DISCHARGE PLANNING NOTE Referral sent to [facility], and BHARTI Paz ([place]- P# ; F# ) ([place]- P# ; F# ) ([place]- P# ; F# ) ([place]- P# ; F# ) ([place]- P# ; F# ) ([place]- P# ; F# ) ([place]- P# [phone] ; F# [phone]) Images from the original note were not included. DISCHARGE PLANNING NOTE Follow-up Discharge Planning Progress Note Per RN during discharge transition rounds, barriers to discharge are: None. Informed by RT Maday this AM that pt did qualify for home oxygen: 2L continuous. Discharge Plan: DC to home with home oxygen when portable has been delivered to room. Met with pt to complete assessment and discuss home oxygen need. She agrees and does not have a preference. Process discussed and informed she cannot DC until the portable has been delivered to room. Pt reports to being independent prior to admit with help from her sister when needed. . Pt lives alone. No new DME needs: Pt confirms PCP & Preferred pharmacy: Pt reports ability to afford medications, denies food/utility/transportation needs. Pt denies alcohol/drug/tobacco use. No depression/anxiety, Negative [place] Screen. Stained [place] discussed post acute care needs, only need is home oxygen, no other needs at this time. She does not have any other questions or concerns at this time, will have a ride home, drove herself to the hospital, will have family help get her car. Prefers to set up own f/u appts. Care Navigation will continue to follow. 06/25/23 1045 Discharge Disposition Discharge Disposition Home Durable Medical Equipment County Information [facility] [place] Patient Information Primary Caregiver Self Support System Immediate family Stressors Type of stressor Health issues Explain issues Will need home oxygen and does not want it. The importance of oxygen discussed if needed. Pt agrees to home oxygen and has no preference on DME. Income Information Income Information Retired/Pension/Social Security Referral To Community Resources Denies needs Discharge Planning Living Arrangements Alone Support Systems Children;Family members (The pt has 5 children, 3 live in the area and are supportive. Her sister provides help to her as needed with carrying groceries and taking out the trash, helping with heavier tasks at home.) Type of Residence Private residence (Apartment) Private Residence [address] Accessibility Steps into home Number of Steps 2 Home Care Services No Community Agencies Currently Utilized None Established DME Comments Walker and cane. Pt will need home oxygen: Tasked to start referral with [facility] Patient expects to be discharged to: DC to home today with oxygen: [facility] Does the patient need discharge transport arranged? No Services Requested: Services Requested Discharge Disposition: Home Durable Medical Equipment Home Durable Medical Equipment Name: [facility] Home Durable Medical Equipment Home Durable Medical Equipment Does the patient need discharge transportation arranged?: Yes Patient choice offered: Yes List Provided: Patient declined Patient Declined: Other (must state reason) (No preference) Initial DC Assessment Completed: Yes DC Planning Complete Discharge Milestones: Yes Patient Goals: Patient/Caregiver Goals Patient/Caregiver Goals: Home with Outpatient Service Provider Goals: Goals Home with oxygen (pt-stated) Evaluation of progress towards goal: Home with oxygen. Problem: Pain Goal: Patient goal is pain score less than 4, able to rest, and participant in treatment plan as appropriate Description: INTERVENTIONS: 1. Encourage patient or legal communications representative to report early pain and ask for pain medicine when needed 2. Assess pain using appropriate pain scale and include the scale used when documenting 3. Administer analgesics based on type and severity of pain and evaluate response within appropriate time frame 4. Implement non-pharmacological measures as appropriate and evaluate response 5. Consider cultural and social influences on pain and pain management 6. Notify LIP if interventions ineffective or patient reports new pain 7. Monitor vital signs including pulse ox, end-tidal CO2 based on pain intervention 8. Reassess pain per policy 9. Teach patient or legal communications representative interventions for comforting Outcome: Progressing Note: Evaluation of progress towards goal: Patient denies all pain at this time. Problem: Safety Goal: Patient will be injury free during hospitalization Description: INTERVENTIONS: 1. Assess patient's risk for falls and implement fall prevention plan of care per policy 2. Provide and maintain a safe environment 3. Proper use of double Identifiers 4. Medication administration using the 5 rights 5. Hand hygiene 6. Specimens are labeled at the bedside 7. Instruct patient/ patient communications representative about use of safety devices 8. Include patient/ patient communications representative in decisions related to safety Outcome: Progressing Note: Evaluation of progress towards goal: Patient remains free from falls and injury. Problem: Pain Goal: Patient goal is pain score less than 4, able to rest, and participant in treatment plan as appropriate Description: INTERVENTIONS: 1. Encourage patient or legal communications representative to report early pain and ask for pain medicine when needed 2. Assess pain using appropriate pain scale and include the scale used when documenting 3. Administer analgesics based on type and severity of pain and evaluate response within appropriate time frame 4. Implement non-pharmacological measures as appropriate and evaluate response 5. Consider cultural and social influences on pain and pain management 6. Notify LIP if interventions ineffective or patient reports new pain 7. Monitor vital signs including pulse ox, end-tidal CO2 based on pain intervention 8. Reassess pain per policy 9. Teach patient or legal communications representative interventions for comforting Outcome: Progressing Note: Evaluation of progress towards goal: Patient demonstrated the use of appropriate diversional activities and relaxation skills, and maintained pain less than 2 on a rating scale of 0 out of 10. Problem: Knowledge Deficit Goal: Patient/patient communications representative demonstrates understanding of disease process, treatment plan, medications, and discharge instructions Description: INTERVENTIONS 1. Complete learning assessment and assess knowledge base 2. Provide teaching at level of understanding 3. Provide teaching via preferred learning method(s) Outcome: Progressing Note: Evaluation of progress towards goal: Continue to address and identify knowledge deficits through patient education and interaction. Physical Therapy Treatment Discharge Recommendations PT Recommendations: Home Home Recommendations: Intermittent caregiver support for: (safety and assistance with ADLs) Post Discharge Therapy Recommendations: Outpatient Physical Therapy 6 Clicks: Basic Mobility Turning from your back to your side while in a flat bed without using bed rails?: None Moving from lying on your back to sitting on side of flat bed without using bed rails?: None Moving to and from bed to a chair (including w/c)?: A little Standing up from a chair using your arms (e.g. w/c or bedside chair)?: A little To walk in hospital room?: A little Climbing 3-5 steps with a railing?: A little Scoring 6 Clicks: Basic Mobility Raw Score: 20 CMS G Code Modifier: CJ Therapy Plan Need for skilled Physical Therapy to address deficits in functional mobility due to a status decline resulting from hypoxia. PT Treatment/Interventions: ADL retraining, Functional transfer training, LE strengthening/ROM, Endurance training, Patient/family training, Balance, Stair training, Gait training, Coordination activities, Gross motor developmental skills, Neuromuscular reeducation PT Frequency: 3-4days/week PT Duration: 10 days Patient Response to Treatment: Improving as expected Assessment Patient Assessment Therapy Problem List: Abnormal posture, Decreased ADL status, Decreased balance, Decreased endurance, Decreased gross motor, Decreased high-level ADLs, Decreased mobility, Decreased LE strength Patient Response to Treatment: Improving as expected Mood/Affect: Appropriate for circumstances Rehab Prognosis: Good, With continued PT status post acute discharge Visit RN Communication: Yes Medical Record Reviewed: Yes PT Type of Visit: Treatment Precautions Activity: okay to treat per SHABNAM Cardona Equipment: Non skid socks, walker, gait belt Pain Assessment Pain Assessment: No/denies pain Cognition Orientation Level: Oriented X4 Bed Mobility Supine to Sit: Stand by assist Sit to Supine: Stand by assist Transfers Sit to Stand: Standby assist Stand to Sit: Standby assist Gait Base of Support: Narrow Pattern: Decreased ginger, Forward trunk Gait Assistance: Standby assist Assistive Device: Rolling walker Gait Distance: 150 feet Limiting Factors to Gait: Weakness 2 Turns: Yes Balance Sitting Balance: Static: Good Sitting Balance: Dynamic: Good Standing Balance: Static: Good, Fair Standing Balance: Dynamic: Fair 06/24/23 0900 TKA TKA exercises performed? No Activity Tolerance Endurance: Tolerates <30 minutes activity WITHOUT vital sign changes Plan Physical Therapy Care Plan Physical Therapy Care Plan (Active) Template: PT - Physical Therapy Problem: Activity Tolerance Dates: Start: 06/23/23 Disciplines: PT Goal: Patient's goal is: (specify details) Dates: Start: 06/23/23 Expected End: 07/02/23 Disciplines: PT Problem: Gait Dates: Start: 06/23/23 Disciplines: PT Goal: Patient will perform gait with Stand By Assist Dates: Start: 06/23/23 Expected End: 07/02/23 Description: Pt will ambulate 300' with least restrictive assistive device in order to demonstrate ability to perform household ambulation Disciplines: PT Outcomes Date/Time User Outcome 06/24/23933 Ernst Arroyo PTA Progressing Goal Note filed on 06/24/23933 by Ernst Arroyo PTA Evaluation of progress towards goal: Pt amb 150 feet with walker SBA. Problem: Standing Balance Dates: Start: 06/23/23 Disciplines: PT Goal: Improve balance to good Dates: Start: 06/23/23 Expected End: 07/02/23 Description: In order to decrease fall risk Disciplines: PT Physical Therapy Care Plan (Resolved) There are no resolved problems. Principal Problem: Hypoxia Active Problems: Stage 3a chronic kidney disease ([facility]) Benign essential HTN Diabetes mellitus ([facility]) Mixed hyperlipidemia Associated attestation - Rhett Villalobos, PT - 06/24/2023 11:53 AM EST I have reviewed and agree with this note and education documentation for this visit. Problem: Pain Goal: Patient goal is pain score less than 4, able to rest, and participant in treatment plan as appropriate Description: INTERVENTIONS: 1. Encourage patient or legal communications representative to report early pain and ask for pain medicine when needed 2. Assess pain using appropriate pain scale and include the scale used when documenting 3. Administer analgesics based on type and severity of pain and evaluate response within appropriate time frame 4. Implement non-pharmacological measures as appropriate and evaluate response 5. Consider cultural and social influences on pain and pain management 6. Notify LIP if interventions ineffective or patient reports new pain 7. Monitor vital signs including pulse ox, end-tidal CO2 based on pain intervention 8. Reassess pain per policy 9. Teach patient or legal communications representative interventions for comforting Outcome: Progressing Note: Evaluation of progress towards goal: patient able to report pain on 0-10 scale. Pain medications provided as ordered. Problem: Safety Goal: Patient will be injury free during hospitalization Description: INTERVENTIONS: 1. Assess patient's risk for falls and implement fall prevention plan of care per policy 2. Provide and maintain a safe environment 3. Proper use of double Identifiers 4. Medication administration using the 5 rights 5. Hand hygiene 6. Specimens are labeled at the bedside 7. Instruct patient/ patient communications representative about use of safety devices 8. Include patient/ patient communications representative in decisions related to safety Outcome: Progressing Note: Evaluation of progress towards goal: Patient remains free from falls and injury. Physical Therapy Evaluation Discharge Recommendations PT Recommendations: Home Home Recommendations: Intermittent caregiver support for: (Occasional assistance needed with lifting/carrying heavier objects such as groceries or trash) Post Discharge Therapy Recommendations: Outpatient Physical Therapy Past Medical History: Diagnosis Date Breast cancer ([facility] [place]) 2001 LT Breast cancer ([facility] [place]) 07/26/2021 RIGHT Diabetes ([facility] [place]) Diabetes mellitus type 2, controlled ([facility]) HTN (hypertension) Hyperlipidemia [place] (myocardial infarction) ([facility] [place]) Pneumonia Restless leg Stage 3a chronic kidney disease ([facility]) 07/18/2022 Past Surgical History: Procedure Laterality Date BREAST BIOPSY BREAST LUMPECTOMY Left 2001 RADIATION AND CHEMO BREAST LUMPECTOMY Right 08/12/2021 CATARACT EXTRACTION CHOLECYSTECTOMY COLECTOMY COLONOSCOPY 12/15/2015 Dr. Cortez COLONOSCOPY N/A 01/13/2021 Performed by Wilberto Hughes DO at [facility] HYSTERECTOMY MASTECTOMY Right MASTECTOMY W/ SENTINEL NODE BIOPSY Right 09/02/2021 OOPHORECTOMY REPAIR HERNIA VENTRAL. incarcerated N/A 08/16/2018 Performed by Kemar Beltre MD at [facility] 6 Clicks: Basic Mobility Turning from your back to your side while in a flat bed without using bed rails?: None Moving from lying on your back to sitting on side of flat bed without using bed rails?: None Moving to and from bed to a chair (including w/c)?: A little Standing up from a chair using your arms (e.g. w/c or bedside chair)?: A little To walk in hospital room?: A little Climbing 3-5 steps with a railing?: A little Scoring 6 Clicks: Basic Mobility Raw Score: 20 CMS G Code Modifier: CJ Therapy Plan Need for skilled Physical Therapy to address deficits in functional mobility due to a status decline resulting from hypoxia. PT Treatment/Interventions: ADL retraining, Functional transfer training, LE strengthening/ROM, Endurance training, Patient/family training, Balance, Stair training, Gait training, Coordination activities, Gross motor developmental skills, Neuromuscular reeducation PT Frequency: 3-4days/week PT Duration: 10 days Patient Response to Treatment: Tolerated evaluation without adverse reaction Assessment Patient Assessment Therapy Problem List: Abnormal posture, Decreased ADL status, Decreased balance, Decreased endurance, Decreased gross motor, Decreased high-level ADLs, Decreased mobility, Decreased LE strength Patient Response to Treatment: Tolerated evaluation without adverse reaction Mood/Affect: Appropriate for circumstances Rehab Prognosis: Good Visit RN Communication: Yes Medical Record Reviewed: Yes PT Type of Visit: Evaluation Precautions Activity: Early mobility pass, okay to treat per RN Equipment: Non skid socks, walker, gait belt Telemetry/Panel Edge Sealer: Yes Home Living Type of Home: Apartment Home Layout: One level Stairs to Enter: 2 Hand Rails: Left Bathroom Shower/Tub: Tub/shower unit Bathroom Toilet: Standard Bathroom Equipment: Grab bars in shower Home Equipment: Rolling walker, Cane Prior Function Lives With: Alone Receives Help From: Family Level of Mobility: Independent with ADLs and functional transfers or gait Homemaking Assistance: Independent Other: Pt reports being being able to cook, clean, and ambulate with AD; only recieve help lifting and carrying groceries and trash which her sister helps her with Hearing / Speech / Vision Hearing: Within Functional Limits Current Vision: Other (Comment) (Glasses for distances) Cognition Orientation Level: Oriented X4 Sensation Overall Sensation Status: (Numbness/tningling in LEs) Perception / Proprioception Overall Status: (Dereased) Bed Mobility Rolling: Stand by assist Supine to Sit: Stand by assist Sit to Supine: Stand by assist Transfers Sit to Stand: Standby assist Stand to Sit: Standby assist Stand Pivot Transfers: Contact guard assist Gait Base of Support: Narrow Pattern: Decreased ginger, Forward trunk Gait Assistance: Contact guard assist, Standby assist Assistive Device: Rolling walker Gait Distance: 100' Limiting Factors to Gait: Weakness Balance Sitting Balance: Static: Good Sitting Balance: Dynamic: Good Standing Balance: Static: Good, Fair Standing Balance: Dynamic: Fair RLE Assessment: (Generalized weakness) LLE Assessment: (Generalized weakness) Activity Tolerance Endurance: Tolerates <30 minutes activity with vital sign changes Other: Pt tolerated the session well with reports of increasing fatigue throughout the session. Pt reports her legs were wobbly at the end the session and she feels weaker than normal Plan Physical Therapy Care Plan Physical Therapy Care Plan (Active) Template: PT - Physical Therapy Problem: Activity Tolerance Dates: Start: 06/23/23 Disciplines: PT Goal: Patient's goal is: (specify details) Dates: Start: 06/23/23 Description: Goal Description: Disciplines: PT Problem: Gait Dates: Start: 06/23/23 Disciplines: PT Goal: Patient will perform gait with Stand By Assist Dates: Start: 06/23/23 Description: With____,____feet Goal Description: Disciplines: PT Problem: Standing Balance Dates: Start: 06/23/23 Disciplines: PT Goal: Improve balance to good Dates: Start: 06/23/23 Description: Static Dynamic Disciplines: PT Physical Therapy Care Plan (Resolved) There are no resolved problems. Principal Problem: Hypoxia Active Problems: Stage 3a chronic kidney disease ([facility]) Benign essential HTN Diabetes mellitus ([facility]) Mixed hyperlipidemia Problem: Pain Goal: Patient goal is pain score less than 4, able to rest, and participant in treatment plan as appropriate Description: INTERVENTIONS: 1. Encourage patient or legal communications representative to report early pain and ask for pain medicine when needed 2. Assess pain using appropriate pain scale and include the scale used when documenting 3. Administer analgesics based on type and severity of pain and evaluate response within appropriate time frame 4. Implement non-pharmacological measures as appropriate and evaluate response 5. Consider cultural and social influences on pain and pain management 6. Notify LIP if interventions ineffective or patient reports new pain 7. Monitor vital signs including pulse ox, end-tidal CO2 based on pain intervention 8. Reassess pain per policy 9. Teach patient or legal communications representative interventions for comforting Outcome: Progressing Note: Evaluation of progress towards goal: patient able to report pain on 0-10 scale. Pain medications provided as ordered. Problem: Safety Goal: Patient will be injury free during hospitalization Description: INTERVENTIONS: 1. Assess patient's risk for falls and implement fall prevention plan of care per policy 2. Provide and maintain a safe environment 3. Proper use of double Identifiers 4. Medication administration using the 5 rights 5. Hand hygiene 6. Specimens are labeled at the bedside 7. Instruct patient/ patient communications representative about use of safety devices 8. Include patient/ patient communications representative in decisions related to safety Outcome: Progressing Note: Evaluation of progress towards goal: Patient remains free from falls and injury. DISCHARGE PLANNING NOTE Follow-up Discharge Planning Progress Note Per RN during discharge transition rounds, barriers to discharge are: Hypoxia, Right PE, IV meds, Echo. PT/OT evals, from home alone Discharge Plan: Under assessment. Admit to inpatient today. Care Navigation will continue to follow for any discharge needs Problem: Pain Goal: Patient goal is pain score less than 4, able to rest, and participant in treatment plan as appropriate Description: INTERVENTIONS: 1. Encourage patient or legal communications representative to report early pain and ask for pain medicine when needed 2. Assess pain using appropriate pain scale and include the scale used when documenting 3. Administer analgesics based on type and severity of pain and evaluate response within appropriate time frame 4. Implement non-pharmacological measures as appropriate and evaluate response 5. Consider cultural and social influences on pain and pain management 6. Notify LIP if interventions ineffective or patient reports new pain 7. Monitor vital signs including pulse ox, end-tidal CO2 based on pain intervention 8. Reassess pain per policy 9. Teach patient or legal communications representative interventions for comforting Outcome: Progressing Note: Evaluation of progress towards goal: Pt reports no pain. Pain goal is 0 out of 10. Will continue to monitor. Problem: Safety Goal: Patient will be injury free during hospitalization Description: INTERVENTIONS: 1. Assess patient's risk for falls and implement fall prevention plan of care per policy 2. Provide and maintain a safe environment 3. Proper use of double Identifiers 4. Medication administration using the 5 rights 5. Hand hygiene 6. Specimens are labeled at the bedside 7. Instruct patient/ patient communications representative about use of safety devices 8. Include patient/ patient communications representative in decisions related to safety Outcome: Progressing Note: Evaluation of progress towards goal: Pt has remained free of injury. Will continue to reinforce protocols for patient and staff. Problem: Safety Goal: Patient will be injury free during hospitalization Description: INTERVENTIONS: 1. Assess patient's risk for falls and implement fall prevention plan of care per policy 2. Provide and maintain a safe environment 3. Proper use of double Identifiers 4. Medication administration using the 5 rights 5. Hand hygiene 6. Specimens are labeled at the bedside 7. Instruct patient/ patient communications representative about use of safety devices 8. Include patient/ patient communications representative in decisions related to safety Outcome: Progressing Note: Evaluation of progress towards goal: Able to ambulate In and Out of the bed independently with assistive device. No injury/ trauma/ fall. Hourly rounds completed. Problem: Moderate - High Risk Fall Score Description: Alfaro Fall Score of =/> 25 or indicated by [facility] Rehab Assessment Goal: Patient should be free from fall Description: Interventions: 1. [place] to environment 2. Hourly rounds addressing the 4 P's (Pain, Positioning, Possessions, Potty) 3. Clear area of hazards (spills, clutter, electrical cords, unnecessary equipment) 4. Place equipment (bed & TV controls, call light, phone, urinal) within reach 5. Encourage patient to wear glasses and hearing aides as appropriate 6. Maintain bed in lowest position 7. Lock wheels on bed/wheelchair 8. Provide adequate lighting, including night light 9. Assess need for additional bedding, food/fluids, pain med's prior to sleep/routinely 10. Provide gripper slippers or personal non-skid footwear 11. Teach patient and patient communications representative to maintain environment for safety and engage in all aspects of fall prevention program 12. Remind patient to call for help before getting out of bed 13. Initiate bed/chair/exit alarms supportive devices as appropriate, (chair wedge, no-skid floor mat, raised edge mattress, hip protectors) 14. Locate patient bed assignment for optimal visualization 15. Evaluate and identify Safe Patient Handling Equipment needs 16. Provide supervision when out of bed or chair 17. Utilize gait belt as needed to assist with ambulation 18. Place adaptive equipment (cane, walker) within reach 19. Request patient communications representative bring adaptive equipment/mobility aids from home or obtain and provide as needed 20. Consult pharmacy regarding effects of med's affecting mobility, cognition, and alternatives 21. Obtain physician order for PT if risk factors associated with mobility are present 22. Obtain physician order for OT as appropriate 23. Utilize diversional activities 24. Educate patient and patient communications representative how to maintain a safe environment during visitation times (notify nurse prior to leaving bedside) 25. Consider appropriateness of medical or non-medical orderly 26. Set up voiding schedule as appropriate (every 2 hours) Outcome: Progressing Note: Evaluation of progress towards goal: No fall episodes during the entire shift Problem: Cardiovascular - Adult Goal: Absence of cardiac dysrhythmias or at baseline Description: INTERVENTIONS: 1. Continuous cardiac monitoring, monitor vital signs, obtain 12 lead EKG as ordered 2. Monitor for therapeutic effect/ side effects and safely 3. Administer antiarrhythmic and heart rate control medications as ordered 3. Initiate emergency measures for life threatening arrhythmias 4. Monitor labs and administer replacement/adjust therapy as ordered Outcome: Progressing Note: Evaluation of progress towards goal: EKG - NSR, had NSVT episode, 12EKG/ Mg / Lopressor IV -ordered , denies any cardiac related complaints. Problem: Respiratory - Adult Goal: Achieves optimal ventilation and oxygenation Description: Patient's goal is: INTERVENTIONS: 1. Assess for changes in respiratory status 2. Assess for changes in mentation and behavior 3. Position to facilitate oxygenation and minimize respiratory effort 4. Oxygen supplementation based on oxygen saturation or ABGs as ordered 5. Consult smoking cessation as indicated 6. Encourage broncho-pulmonary hygiene including cough, deep breathe, Incentive Spirometry, keep HOB elevated as tolerated, and encourage ambulation, as ordered 7. Assess the need for suctioning and obtain order to maintain clear airway 8. Assess and instruct patient to report SOB or any respiratory difficulty 9. Assess the need for Respiratory Therapy support if not already ordered 10. Initiate emergency measures for respiratory failure Outcome: Progressing Note: Evaluation of progress towards goal: Currently on NC at 2 LPM, breath sounds clear, denies SOB, not in respiratory distress. documented in this encounter [facility] 06-25-2023 Nurse Note Pt was educated on discharge instructions and follow up appointments. Pt was given the phone number to Gurjit on her AVS, was instructed to call if there are any questions or concerns with the oxygen. IV was removed, and belongings were packed - cellphone, library serials assistant, coat. Pt is waiting on portable O2 before discharging home. All questions have been answered at this time. documented in this encounter [facility] 06-25-2023 Progress note Formatting of t his note might be different from the original. DISCHARGE PLANNING NOTE Telephone call received from Tamara at [facility], to inform insurance will cover the oxygen. Portable will be delivered to hospital and then home set up scheduled with pt. Contact info added to PAIGES, RN informed and will update pt. Informed pt cannot DC until the portable is delivered at bedside. [facility] 06-25-2023 Progress note Formatting of t his note might be different from the original. DISCHARGE PLANNING NOTE Informed by [facility] that they do not accept pt's insurance. New home oxygen referral sent to [facility]. Pt and staff updated. Await acceptance. [facility] 06-25-2023 History of Present illness Narrative Nutrition Note: Related to Age Diet: 2000 mg Sodium PO Intakes: 75-100% (good) Diagnosis / Reason for Visit: Patient presents with Chief Complaint Patient presents with Shortness of Breath Adm Dx: Hypoxia Ht Readings from Last 1 Encounters: 06/22/23 152.4 cm (5') Wt Readings from Last 1 Encounters: 06/25/23 92.6 kg (204 lb 3.2 oz) Body mass index is 39.88 kg/m . Patient is 204% IBW based on 92.6 kg weight using 45.5 kg IBW. No recent appetite changes &/or weight loss noted per nutrition screen. Patient is consuming good po intakes of meals as documented. Noted patient discharge this day. No nutrition dx at this time. Will monitor and follow prn. Mini Hernandez MA, RD, LD Clinical Dietitian [facility] Summary: Home 02 Evaluation 06/25/23 0900 Home Oxygen Qualification - Resting Method *Complete within 48 Hrs of Discharge SpO2 On Room Air At Rest 85 % Amount Of O2 Applied At Rest To Keep SpO2 >88% 2 L/min SpO2 On Applied O2 At Rest 93 % [facility] Internal Medicine 06/24/2023 Patient Name: Kay Ly : 1940 SUBJECTIVE: Patient seen for follow-up on medical comorbidities Patient denies any chest pain. Patient denies any shortness a breath and is stable on 2 L oxygen via nasal cannula. OBJECTIVE: Exam: BP (!) 83/62 Pulse 60 Temp 36.5 C (97.7 F) (Oral) Resp 20 Ht 152.4 cm (5') Wt 92.4 kg (203 lb 12.8 oz) SpO2 96% BMI 39.80 kg/m Intake/Output Summary (Last 24 hours) at 06/24/2023 1413 Last data filed at 06/23/2023 1543 Gross per 24 hour Intake 360 ml Output 400 ml Net -40 ml General appearance: alert, appears stated age and cooperative Lungs: Few basilar crackles to auscultation bilaterally Heart: regular rate and rhythm, S1, S2 normal, no murmur, click, rub or gallop and no JVD. Abdomen: soft, non-tender; bowel sounds normal; no masses, no organomegaly Extremities: extremities normal, atraumatic, no cyanosis; LE edema+ Pulses: 2+ and symmetric Skin: Skin color, texture, turgor normal. No rashes or lesions No results found. Labs: Recent Results (from the past 24 hour(s)) Bedside Glucose *Place/Obtain serum glucose if >500(>600 MRH) per glucometer. Collection Time: 06/23/23 6:06 PM Result Value Ref Range Bedside glucose 114 (H) 65 - 99 mg/dL Magnesium Collection Time: 06/23/23 8:42 PM Result Value Ref Range Magnesium 2.3 1.8 - 2.6 mg/dL Potassium Collection Time: 06/23/23 8:42 PM Result Value Ref Range Potassium, Bld 3.5 3.5 - 5.0 mmol/L Basic Metabolic Panel Collection Time: 06/24/23 5:12 AM Result Value Ref Range Sodium 136 134 - 146 mmol/L Potassium, Bld 3.6 3.5 - 5.0 mmol/L Chloride 92 (L) 98 - 109 mmol/L CO2 33 (H) 22 - 32 mmol/L Anion gap 11 5 - 15 mmol/L BUN 35 (H) 5 - 27 mg/dL Creatinine 1.97 (H) 0.40 - 1.00 mg/dL Glucose 245 (H) 65 - 99 mg/dL Calcium 8.5 8.5 - 10.5 mg/dL eGFR (CKD-EPI)non-race dependent 25 (L) >59 ml/min/1.73sq.m CBC auto differential Collection Time: 06/24/23 5:12 AM Result Value Ref Range White Blood Cells 6.6 4.0 - 11.0 X10E9/L RBC count 4.15 3.80 - 5.20 X10E12/L Hemoglobin 12.1 11.7 - 15.5 g/dL Hematocrit 36.7 35 - 47 % MCV 89 80 - 100 fL MCH 29.2 27 - 34 pg MCHC 32.9 32 - 36 g/dL RDW 17.7 (H) 11.5 - 15.0 % Platelets 117 (L) 150 - 450 X10E9/L MPV 7.9 7 - 12 fL % neutrophils 78.7 % % lymphocytes 11.0 % % monocytes 7.3 % % eosinophils 2.4 % % Basophils 0.6 % Neutrophils Absolute (A) 5.2 1.5 - 6.6 X10E9/L Lymphocytes Absolute 0.7 (L) 1.0 - 3.5 X10E9/L Monocytes Absolute 0.5 0 - 0.9 X10E9/L Eosinophils Absolute 0.2 0.0 - 0.4 X10E9/L Basophils Absolute 0.0 0.0 - 0.2 X10E9/L Bedside Glucose *Place/Obtain serum glucose if >500(>600 MRH) per glucometer. Collection Time: 06/24/23 8:24 AM Result Value Ref Range Bedside glucose 229 (H) 65 - 99 mg/dL Problem List: Principal Problem: Hypoxia Active Problems: Stage 3a chronic kidney disease ([facility]) Benign essential HTN Diabetes mellitus ([facility]) Mixed hyperlipidemia Assessment and Plan: Acute diastolic CHF: Chest x-ray shows pulmonary congestion with right pleural effusion. O2 as needed. Requiring 2 L per nasal cannula. No oxygen requirements at home. Nebulizer treatments as needed. Wean oxygen as tolerated Hypoxia likely related to fluid overload. BNP elevated. Daily weight. I&O. Hold Lasix today given hypotension as well as rising creatinine. We will give 500 mL bolus and monitor BP. Acute kidney injury on CKD 3: Creatinine is rising. Management as mentioned above. Hypertension: Hypotensive, management as described above. Hold antihypertensives and discontinue Lasix. Dm 2: Monitor blood glucose a.c. and HS cover sliding scale insulin. Mixed hyperlipidemia: Continue home statin. Monitor electrolytes daily. Replace electrolytes per protocol. DVT prophylaxis: EPC's and Lovenox. PT/OT to evaluate and treat. DC planning: Discharge home in 1-2 days. Yousuf Garcia MD, 06/22/2023 3:02 PM [facility] Medicine - [facility] Hospitalists 7AM-7PM: Message rounding DARYL in [email or web address] or page through [employer]. 7PM-7AM: Page on-call DARYL through our BCNX service, . [facility] Internal Medicine 06/23/2023 Patient Name: Kay Ly : 1940 SUBJECTIVE: Patient seen for follow-up on medical comorbidities Patient denies any chest pain. Patient denies any shortness a breath and is stable on 2 L oxygen via nasal cannula. OBJECTIVE: Exam: BP 95/54 Pulse 58 Temp 37 C (98.6 F) (Oral) Resp 18 Ht 152.4 cm (5') Wt 92.2 kg (203 lb 3.2 oz) SpO2 94% BMI 39.68 kg/m Intake/Output Summary (Last 24 hours) at 06/23/2023 1331 Last data filed at 06/23/2023 0908 Gross per 24 hour Intake 560 ml Output 3600 ml Net -3040 ml General appearance: alert, appears stated age and cooperative Lungs: Few basilar crackles to auscultation bilaterally Heart: regular rate and rhythm, S1, S2 normal, no murmur, click, rub or gallop and no JVD. Abdomen: soft, non-tender; bowel sounds normal; no masses, no organomegaly Extremities: extremities normal, atraumatic, no cyanosis; LE edema+ Pulses: 2+ and symmetric Skin: Skin color, texture, turgor normal. No rashes or lesions No results found. Labs: Recent Results (from the past 24 hour(s)) Bedside Glucose *Place/Obtain serum glucose if >500(>600 MRH) per glucometer. Collection Time: 06/22/23 9:44 PM Result Value Ref Range Bedside glucose 176 (H) 65 - 99 mg/dL Basic Metabolic Panel Collection Time: 06/23/23 5:47 AM Result Value Ref Range Sodium 138 134 - 146 mmol/L Potassium, Bld 3.3 (L) 3.5 - 5.0 mmol/L Chloride 95 (L) 98 - 109 mmol/L CO2 33 (H) 22 - 32 mmol/L Anion gap 10 5 - 15 mmol/L BUN 30 (H) 5 - 27 mg/dL Creatinine 1.70 (H) 0.40 - 1.00 mg/dL Glucose 188 (H) 65 - 99 mg/dL Calcium 9.0 8.5 - 10.5 mg/dL eGFR (CKD-EPI)non-race dependent 30 (L) >59 ml/min/1.73sq.m CBC auto differential Collection Time: 06/23/23 5:47 AM Result Value Ref Range White Blood Cells 6.7 4.0 - 11.0 X10E9/L RBC count 4.04 3.80 - 5.20 X10E12/L Hemoglobin 11.8 11.7 - 15.5 g/dL Hematocrit 35.5 35 - 47 % MCV 88 80 - 100 fL MCH 29.2 27 - 34 pg MCHC 33.3 32 - 36 g/dL RDW 18.0 (H) 11.5 - 15.0 % Platelets 114 (L) 150 - 450 X10E9/L MPV 8.4 7 - 12 fL % neutrophils 79.3 % % lymphocytes 10.8 % % monocytes 7.0 % % eosinophils 2.2 % % Basophils 0.7 % Neutrophils Absolute (A) 5.3 1.5 - 6.6 X10E9/L Lymphocytes Absolute 0.7 (L) 1.0 - 3.5 X10E9/L Monocytes Absolute 0.5 0 - 0.9 X10E9/L Eosinophils Absolute 0.1 0.0 - 0.4 X10E9/L Basophils Absolute 0.0 0.0 - 0.2 X10E9/L Magnesium Collection Time: 06/23/23 5:47 AM Result Value Ref Range Magnesium 1.9 1.8 - 2.6 mg/dL Bedside Glucose *Place/Obtain serum glucose if >500(>600 MRH) per glucometer. Collection Time: 06/23/23 9:59 AM Result Value Ref Range Bedside glucose 188 (H) 65 - 99 mg/dL Bedside Glucose *Place/Obtain serum glucose if >500(>600 MRH) per glucometer. Collection Time: 06/23/23 1:04 PM Result Value Ref Range Bedside glucose 201 (H) 65 - 99 mg/dL Problem List: Principal Problem: Hypoxia Active Problems: Stage 3a chronic kidney disease ([facility]) Benign essential HTN Diabetes mellitus ([facility]) Mixed hyperlipidemia Assessment and Plan: Acute CHF: Chest x-ray shows pulmonary congestion with right pleural effusion. O2 as needed. Requiring 2 L per nasal cannula. No oxygen requirements at home. Nebulizer treatments as needed. Wean oxygen as tolerated Hypoxia likely related to fluid overload. BNP elevated. Lasix 40 mg b.i.d. ordered. Daily weight. I&O. Echocardiogram ordered to assess ejection fraction CKD 3: Creatinine at baseline. Continue to monitor daily with diuresis. Hypertension: Normotensive. Continue home medications. Will hold hydrochlorothiazide while patient is getting IV Lasix. Dm 2: Monitor blood glucose a.c. and HS cover sliding scale insulin. Mixed hyperlipidemia: Continue home statin. Monitor electrolytes daily. Replace electrolytes per protocol. DVT prophylaxis: EPC's and Lovenox. PT/OT to evaluate and treat. DC planning: Discharge home in 1-2 days. Yousuf Garcia MD, 06/22/2023 3:02 PM [facility] Hospitalists 7AM-7PM: Message rounding DARYL in [email or web address] or page through [employer]. 7PM-7AM: Page on-call DARYL through our BCNX service, . [facility] Department of Pharmacy Pharmacy-Physician Communication Pt name: Kay Ly Room: [facility]/ Dear Dr. Yousuf Garcia MD Your patient is currently taking the medication Enoxaparin, which is primarily excreted renally. From your patient s renal function: Results from last 7 days Lab Units 06/21/23 1633 CREATININE mg/dL 1.23* Estimated Creatinine Clearance: 26.2 mL/min (A) (by C-G formula based on SCr of 1.23 mg/dL (H)). Excess drug accumulation may lead to an increased incidence of side effects such as: bleeding. *Using the CrCl as a predictor of renal function, the following renally adjusted dose is recommended: 30mg once daily. Dose was adjusted automatically by pharmacy per renal policy. Thank you for your consideration. If we can offer more assistance, please fee free to call us at pharmacy. Andrew Roland RPH documented in this encounter [facility] 06-25-2023 Progress note Formatting of t his note is different from the original. Occupational Therapy Evaluation Discharge Recommendations OT Recommendations : Home Home Recommendations: Intermittent caregiver support for: (assist as prior) Post Discharge Therapy Recommendations: None 6 Clicks: Daily Activity Putting on and taking off regular lower body clothing?: A little Bathing (including washing, rinsing, drying)?: A little Toileting, which includes using toilet, bedpan or urinal?: None Putting on and taking off regular upper body clothing?: None Taking care of personal grooming such as brushing teeth?: None Eating meals?: None Scoring Daily Activity Raw Score: 22 [facility] G Code Modifier: CJ Therapy Plan/HPI/occupational profile throughout eval Need for skilled Occupational Therapy to address deficits in ADL independence and functional mobility due to a status decline resulting from hypoxia. A moderate complex eval was completed. Past Surgical History: Procedure Laterality Date BREAST BIOPSY BREAST LUMPECTOMY Left 2001 RADIATION AND CHEMO BREAST LUMPECTOMY Right 08/12/2021 CATARACT EXTRACTION CHOLECYSTECTOMY COLECTOMY COLONOSCOPY 12/15/2015 Dr. Cortez COLONOSCOPY N/A 01/13/2021 Performed by Wilberto Hughes DO at [facility] HYSTERECTOMY MASTECTOMY Right MASTECTOMY W/ SENTINEL NODE BIOPSY Right 09/02/2021 OOPHORECTOMY REPAIR HERNIA VENTRAL. incarcerated N/A 08/16/2018 Performed by Kemar Beltre MD at [facility] Past Medical History: Diagnosis Date Breast cancer ([facility] [place]) 2001 LT Breast cancer ([facility] [place]) 07/26/2021 RIGHT Diabetes ([facility] [place]) Diabetes mellitus type 2, controlled ([facility] [place]) HTN (hypertension) Hyperlipidemia [place] (myocardial infarction) ([facility]) Pneumonia Restless leg Stage 3a chronic kidney disease ([facility]) 07/18/2022 No Current Skilled OT: Patient refusal OT Frequency: (1X for eval) Assessment Patient Assessment Patient Response to Treatment: Tolerated evaluation without adverse reaction Mood/Affect: Appropriate for circumstances Rehab Prognosis: Good Visit RN Communication: Yes Medical Record Reviewed: Yes OT Type of Visit: Evaluation Precautions Activity: early mobility pass, [place] to eval per Ofelia HAQUE Equipment: Non skid socks, walker, , O2 Telemetry/Panel Edge Sealer: Yes Oxygen Used: 2 L via nasal cannula Pain Assessment Pain Assessment: No/denies pain Home Living Type of Home: Apartment (1st floor. laundry is located in another unit) Home Layout: One level Stairs to Enter: 2 Bathroom Shower/Tub: Tub/shower unit Bathroom Toilet: Standard Bathroom Equipment: Grab bars in shower Home Equipment: Rolling walker, Cane (life alert) Prior Function Lives With: Alone Receives Help From: Family (sister comes over to help) Level of Mobility: Independent with ADLs and functional transfers or gait (ambulated with RW) Homemaking Assistance: Independent (sisters comes and they take laundry her to place. still driving. still does the grocery shopping with a scooter) ADL / IADL Hand Dominance: Right Eating Assistance: Independent Grooming Assistance: Standby assist (seated to wash face and complete oral care) Bathing/Showering Assistance: Contact guard assist Toilet/Commode Assistance: Standby assist UE Dressing Assistance: Setup LE Dressing Assistance: Standby assist Footwear Assistance: Standby assist Other: patient ed on role and goals of OT, agreeable to OT eval. patient completes upper body sponge bath and oral care while seated on edge of bed, further ADl assessment is based on clinical judgement and observation of pt's ability to complete ROM, strength, endurance, sit and stand balance, functional mobility status and safety awareness Home Management - IADL Other: patient ed on role and goals of OT, agreeable to OT eval. patient completes upper body sponge bath and oral care while seated on edge of bed, further ADl assessment is based on clinical judgement and observation of pt's ability to complete ROM, strength, endurance, sit and stand balance, functional mobility status and safety awareness Hearing / Speech / Vision Hearing: Within Functional Limits Speech: Within Functional Limits Current Vision: (galssess for driving) Cognition Orientation Level: Oriented X4 Sensation Overall Sensation Status: (numbness and tingling in bilateral LE's and hands) Bed Mobility Supine to Sit: Stand by assist, Supervision Other: remains seated on edge of bed at depature with needs with in reach Transfers Sit to Stand: Standby assist Stand to Sit: Standby assist Other: completes with use of AE Balance Sitting Balance: Static: Good Sitting Balance: Dynamic: Good Standing Balance: Static: Good, Fair Standing Balance: Dynamic: Fair Other: functional mobility completed a short distance with use of RW and SBA in order to increase strength and endurance as pt prepares for return to community RUE Assessment: (generalized weakness) LUE Assessment: (generalized weakness) Activity Tolerance Endurance: Tolerates <30 minutes activity WITHOUT vital sign changes Plan Occupational Therapy Care Plan Occupational Therapy Care Plan (Active) There are no active problems. Occupational Therapy Care Plan (Resolved) There are no resolved problems. Principal Problem: Hypoxia Active Problems: Stage 3a chronic kidney disease (CMS-HCC) Benign essential HTN Diabetes mellitus ([facility]-HCC) Mixed hyperlipidemia [employer] Work Phone: 06-25-2023 Hospital course Narrative Images from the original note were not included. [facility] Francisco Javier Crisostomo, MD Francisca Gibbs, MD Danie Chavez, MD Sonia Hughes, MD Tricia Jimenes, MD Madelaine Vo, MD Yousuf Garcia, MD Odette Kim, MD Dayanna Cartagena, [employer] STRAIGHTENER Aniya Chou, [facility] [address], [facility] Carmen Lopez, [facility] Jessica Pérez, [facility] Jessica Bains, [facility] Renetta Butcher, [facility] Niesha Morton, [facility] Mauro Toney, [employer] Treva Goemz, [employer] Jamia Slater, [employer] Renetta Marin, [employer] STRA[employer] Juliana Graff, [facility] Joanna Ackerman, [facility] Macrina Wei, [employer] Jamia Gutierrez, [facility] Haylee Elmore, [employer] STRA[employer]ENER Prakash Marcos, [facility] Hospital Medicine Discharge Summary Patient: Kay Ly Date of : 1940 Room: Encounter date: 06/25/23 DATE OF ADMISSION: 06/21/2023 DATE OF DISCHARGE:06/25/2023 DISCHARGE DIAGNOSES Principal Problem: Hypoxia Active Problems: Stage 3a chronic kidney disease ([facility]-HCC) Benign essential HTN Diabetes mellitus ([facility]-HCC) Mixed hyperlipidemia CONSULTANTS None PCP: SHAIKH ISELA MD PROCEDURES None HOSPITAL COURSE SUMMARY Per HPI: Kay Ly is a 82 y.o. female who presents with shortness a breath and hypoxia. States she has been gradually worsening shortness a breath over the past several weeks, had outpatient primary care visit today that noted her to be hypoxic at 84% on room air. Does not normally wear oxygen. States no history of COPD or asthma, no history of CHF. Denies any chest pain with the shortness a breath. States that she has a cough that is productive of clear to white sputum. No fever chills or other infectious symptoms. States occasionally has lower extremity edema, does not feel particularly swollen at this time. ER Course: No leukocytosis. D-dimer age adjusted normal. Metabolic panel shows slight hyperglycemia consistent with diabetes. Slightly elevated creatinine consistent with CKD. BNP 147. Troponin negative. Procalcitonin 0.07. Viral panel negative for flu, RSV, COVID. Chest x-ray shows pulmonary congestion and right pleural effusion. Patient does have history of [place]. she was diuresed while she was here. Echocardiogram shows normal ejection fraction of 55-60%. Patient 30 year smoking history. Quit 2 months ago. Likely also has COPD clinically. Will discharge patient home with oxygen. Patient to follow-up with compressor mechanic for PFT testing to confirm COPD diagnosis. 06/25/23, Hospital Day: 5 Interval History: Status: improved. No overnight events or new complaints. Still requiring 2 L nasal cannula. Review of Systems Constitutional: Negative for activity change, appetite change, fatigue and unexpected weight change. HENT: Negative for trouble swallowing. Respiratory: Negative for cough, sputum production, shortness of breath and wheezing. Cardiovascular: Negative for chest pain, palpitations and leg swelling. Gastrointestinal: Negative for abdominal pain, blood in stool, melena, constipation, diarrhea, nausea and vomiting. Genitourinary: Negative for difficulty urinating. Skin: Negative for color change and wound. Neurological: Negative for dizziness, seizures, speech difficulty and headaches. Psychiatric/Behavioral: Negative for sleep disturbance. Physical Exam BP 115/55 Pulse 61 Temp 36.7 C (98 F) (Oral) Resp 16 Ht 152.4 cm (5') Wt 92.6 kg (204 lb 3.2 oz) SpO2 94% BMI 39.88 kg/m Intake/Output Summary (Last 24 hours) at 06/25/2023 1108 Last data filed at 06/24/2023 1920 Gross per 24 hour Intake 776.62 ml Output -- Net 776.62 ml Constitutional: General: No acute distress. Cardiovascular: Rate and Rhythm: Normal rate and regular rhythm. Heart sounds: Normal heart sounds, S1 normal and S2 normal. Pulmonary: Oxygen at 2 L per nasal cannula. Effort: Pulmonary effort is normal. Breath sounds: Diminished breath sounds. Musculoskeletal: Right lower leg: Nonpitting edema. Left lower leg: Nonpitting edema. Skin: General: Skin is warm and dry. Coloration: Skin is not pale. Neurological: General: No focal deficit present. Psychiatric: Mood and Affect: Mood normal. Behavior: Behavior normal. Labs Recent Results (from the past 48 hour(s)) Bedside Glucose *Place/Obtain serum glucose if >500(>600 MRH) per glucometer. Collection Time: 06/23/23 1:04 PM Result Value Ref Range Bedside glucose 201 (H) 65 - 99 mg/dL Bedside Glucose *Place/Obtain serum glucose if >500(>600 MRH) per glucometer. Collection Time: 06/23/23 6:06 PM Result Value Ref Range Bedside glucose 114 (H) 65 - 99 mg/dL Magnesium Collection Time: 06/23/23 8:42 PM Result Value Ref Range Magnesium 2.3 1.8 - 2.6 mg/dL Potassium Collection Time: 06/23/23 8:42 PM Result Value Ref Range Potassium, Bld 3.5 3.5 - 5.0 mmol/L Basic Metabolic Panel Collection Time: 06/24/23 5:12 AM Result Value Ref Range Sodium 136 134 - 146 mmol/L Potassium, Bld 3.6 3.5 - 5.0 mmol/L Chloride 92 (L) 98 - 109 mmol/L CO2 33 (H) 22 - 32 mmol/L Anion gap 11 5 - 15 mmol/L BUN 35 (H) 5 - 27 mg/dL Creatinine 1.97 (H) 0.40 - 1.00 mg/dL Glucose 245 (H) 65 - 99 mg/dL Calcium 8.5 8.5 - 10.5 mg/dL eGFR (CKD-EPI)non-race dependent 25 (L) >59 ml/min/1.73sq.m CBC auto differential Collection Time: 06/24/23 5:12 AM Result Value Ref Range White Blood Cells 6.6 4.0 - 11.0 X10E9/L RBC count 4.15 3.80 - 5.20 X10E12/L Hemoglobin 12.1 11.7 - 15.5 g/dL Hematocrit 36.7 35 - 47 % MCV 89 80 - 100 fL MCH 29.2 27 - 34 pg MCHC 32.9 32 - 36 g/dL RDW 17.7 (H) 11.5 - 15.0 % Platelets 117 (L) 150 - 450 X10E9/L MPV 7.9 7 - 12 fL % neutrophils 78.7 % % lymphocytes 11.0 % % monocytes 7.3 % % eosinophils 2.4 % % Basophils 0.6 % Neutrophils Absolute (A) 5.2 1.5 - 6.6 X10E9/L Lymphocytes Absolute 0.7 (L) 1.0 - 3.5 X10E9/L Monocytes Absolute 0.5 0 - 0.9 X10E9/L Eosinophils Absolute 0.2 0.0 - 0.4 X10E9/L Basophils Absolute 0.0 0.0 - 0.2 X10E9/L Bedside Glucose *Place/Obtain serum glucose if >500(>600 MRH) per glucometer. Collection Time: 06/24/23 8:24 AM Result Value Ref Range Bedside glucose 229 (H) 65 - 99 mg/dL Basic Metabolic Panel Collection Time: 06/24/23 3:52 PM Result Value Ref Range Sodium 132 (L) 134 - 146 mmol/L Potassium, Bld 3.7 3.5 - 5.0 mmol/L Chloride 92 (L) 98 - 109 mmol/L CO2 31 22 - 32 mmol/L Anion gap 9 5 - 15 mmol/L BUN 37 (H) 5 - 27 mg/dL Creatinine 2.07 (H) 0.40 - 1.00 mg/dL Glucose 154 (H) 65 - 99 mg/dL Calcium 8.2 (L) 8.5 - 10.5 mg/dL eGFR (CKD-EPI)non-race dependent 24 (L) >59 ml/min/1.73sq.m Bedside Glucose *Place/Obtain serum glucose if >500(>600 MRH) per glucometer. Collection Time: 06/25/23 7:52 AM Result Value Ref Range Bedside glucose 233 (H) 65 - 99 mg/dL Radiology Echo complete W/O contrast Result Date: 06/23/2023 Narrative: Left Ventricle: Systolic function is normal with an ejection fraction of 55-60%. No obvious regional wall motion abnormalities. X-ray chest 1 view Result Date: 06/21/2023 Narrative: Portable chest: HISTORY: Shortness of breath. Single [...] Gen Posada MD on 06/21/2023 5:53 PM DISCHARGE ASSESSMENT & PLAN Home oxygen ordered. Patient had a home O2 evaluation completed today. 87% at rest. Oxygen was placed on at 2 L per nasal cannula and oxygen saturation increased to 93%. [id number] evaluation was completed today. Home O2 evaluation noted. Patient will need portable oxygen concentrator as she is mobile in her home in order to maintain saturations greater than 90%. DISCHARGE INSTRUCTION Disposition: Home Condition: Good Activity: activity as tolerated Diet: Adult diet Regular Texture; 2000 mg Sodium Adult diet Follow up: SHAIKH ISELA MD within 7-14 days. Follow-up with pulmonology for PFT testing. Labs/Imaging/Pathology: Discharge Medications: Medication List CONTINUE taking these medications Instructions Last Dose Given Next Dose Due alogliptin-metFORMIN 12.5-1,000 mg tablet Take 12.5 mg by mouth daily. aspirin 81 mg Take 1 tablet (81 mg total) by mouth in the morning. atorvastatin 80 mg tablet Commonly known as: LIPITOR Take 1 tablet (80 mg total) by mouth in the morning. carvediloL 3.125 mg tablet Commonly known as: COREG Take 4 tablets (12.5 mg total) by mouth in the morning and 4 tablets (12.5 mg total) before bedtime. furosemide 40 mg tablet Commonly known as: LASIX Take 0.5 tablets (20 mg total) by mouth daily. hydroCHLOROthiazide 25 mg tablet Commonly known as: HYDRODIURIL hydrochlorothiazide 25 mg tablet TAKE 1 TABLET BY MOUTH EVERY DAY insulin glargine 100 unit/mL injection Commonly known as: LANTUS Inject 0.35 mL (35 Units total) under the skin in the morning. letrozole 2.5 mg chemo tablet Commonly known as: FEMARA Take 1 tablet by mouth daily levothyroxine 50 MCG tablet Commonly known as: SYNTHROID, LEVOTHROID Take 1 tablet (50 mcg total) by mouth in the morning. losartan 25 mg tablet Commonly known as: COZAAR Take 1 tablet (25 mg total) by mouth daily. metFORMIN 1000 mg tablet Commonly known as: GLUCOPHAGE Take 1 tablet (1,000 mg total) by mouth in the morning and 1 tablet (1,000 mg total) in the evening. Take with meals. pregabalin 75 mg capsule Commonly known as: LYRICA Take 2 capsules (150 mg total) by mouth in the morning and 2 capsules (150 mg total) before bedtime. rOPINIRole 3 mg tablet Commonly known as: REQUIP Take 5 mg by mouth 3 (three) times a day. >30 minutes were spent on discharging this patient. ELVER Peterson, 06/25/2023 11:08 AM [facility] 7AM-7PM: Message rounding DARYL in [email or web address] or page through [employer]. 7PM-7AM: Page on-call DARYL through our answering service, . This note is dictated with the use of [employer]. Please note that this dictation was completed with computer voice recognition software. Quite often unanticipated grammatical, syntax, homophones, and other interpretive errors are inadvertently transcribed by the computer software. Please disregard these errors. Please excuse any errors that have escaped final proofreading. ELVER Peterson 06/25/23 1873 Physician Attestation I, Danie Chavez MD, personally performed a face to face diagnostic evaluation on this patient. I have reviewed the note authored by the advance practice provider including history, review of systems,physical examination,medical decision making and agree with the assessment and plan as written. I have seen and evaluated the patient, I have repeated the zhang portions of the physical exam and concur with the DARYL findings. I have reviewed all laboratory findings and imaging reports/films. I agree with the plan as noted. documented in this encounter [facility] [employer] [facility] 06-25-2023 Progress note Formatting of t his note might be different from the original. DISCHARGE PLANNING NOTE [facility] to [facility], and [facility] ([place]- P# ; F# ) ([place]- P# ; F# ) ([place]- P# ; F# ) ([place]- P# ; F# ) ([place]- P# ; F# ) ([place]- P# ; F# ) ([place]- P# [phone] ; F# [phone]) [employer] 06-25-2023 Progress note Formatting of t his note is different from the original. Images from the original note were not included. DISCHARGE PLANNING NOTE Follow-up Discharge Planning Progress Note Per RN during discharge transition rounds, barriers to discharge are: None. Informed by RT Maday this AM that pt did qualify for home oxygen: 2L continuous. Discharge Plan: DC to home with home oxygen when portable has been delivered to room. Met with pt to complete assessment and discuss home oxygen need. She agrees and does not have a preference. Process discussed and informed she cannot DC until the portable has been delivered to room. Pt reports to being independent prior to admit with help from her sister when needed. . Pt lives alone. No new DME needs: Pt confirms PCP & Preferred pharmacy: Pt reports ability to afford medications, denies food/utility/transportation needs. Pt denies alcohol/drug/tobacco use. No depression/anxiety, Negative [place] Screen. Stained [employer] [place] discussed post acute care needs, only need is home oxygen, no other needs at this time. She does not have any other questions or concerns at this time, will have a ride home, drove herself to the hospital, will have family help get her car. Prefers to set up own f/u appts. Care Navigation will continue to follow. 06/25/23 1045 Discharge Disposition Discharge Disposition Home Durable Medical Equipment County Information [facility] Patient Information Primary Caregiver Self Support System Immediate family Stressors Type of stressor Health issues Explain issues Will need home oxygen and does not want it. The importance of oxygen discussed if needed. Pt agrees to home oxygen and has no preference on DME. Income Information Income Information Retired/Pension/Social Security Referral To Community Resources Denies needs Discharge Planning Living Arrangements Alone Support Systems Children;Family members (The pt has 5 children, 3 live in the area and are supportive. Her sister provides help to her as needed with carrying groceries and taking out the trash, helping with heavier tasks at home.) Type of Residence Private residence (Apartment) Private Residence [address] Accessibility Steps into home Number of Steps 2 Home Care Services No Community Agencies Currently Utilized None Established DME Comments Walker and cane. Pt will need home oxygen: Tasked to start referral with [facility] Patient expects to be discharged to: DC to home today with oxygen: [facility] Does the patient need discharge transport arranged? No Services Requested: Services Requested Discharge Disposition: Home Durable Medical Equipment Home Durable Medical Equipment Name: [facility] Home Durable Medical Equipment Home Durable Medical Equipment Does the patient need discharge transportation arranged?: Yes Patient choice offered: Yes List Provided: Patient declined Patient Declined: Other (must state reason) (No preference) Initial DC Assessment Completed: Yes DC Planning Complete Discharge Milestones: Yes Patient Goals: Patient/Caregiver Goals Patient/Caregiver Goals: Home with Outpatient Service Provider Goals: Goals Home with oxygen (pt-stated) Evaluation of progress towards goal: [facility] oxygen. [facility] Discharge instructions VLADIMIR Menezes - 06/25/2023 10:53 AM EST Home oxygen is being delivered to the hospital and then it will be set up at home. You will be called to arrange. If any questions, please call [employer]: [phone]. documented [facility] this encounter [facility] Plan of care note Problem: Pain Goal: Patient goal is pain score less than 4, able to rest, and participant in treatment plan as appropriate Description: INTERVENTIONS: 1. Encourage patient or legal communications representative to report early pain and ask for pain medicine when needed 2. Assess pain using appropriate pain scale and include the scale used when documenting 3. Administer analgesics based on type and severity of pain and evaluate response within appropriate time frame 4. Implement non-pharmacological measures as appropriate and evaluate response 5. Consider cultural and social influences on pain and pain management 6. Notify LIP if interventions ineffective or patient reports new pain 7. Monitor vital signs including pulse ox, end-tidal CO2 based on pain intervention 8. Reassess pain per policy 9. Teach patient or legal communications representative interventions for comforting Outcome: Progressing Note: Evaluation of progress towards goal: Patient denies all pain at this time. Problem: Safety Goal: Patient will be injury free during hospitalization Description: INTERVENTIONS: 1. Assess patient's risk for falls and implement fall prevention plan of care per policy 2. Provide and maintain a safe environment 3. Proper use of double Identifiers 4. Medication administration using the 5 rights 5. Hand hygiene 6. Specimens are labeled at the bedside 7. Instruct patient/ patient communications representative about use of safety devices 8. Include patient/ patient communications representative in decisions related to safety Outcome: Progressing Note: Evaluation of progress towards goal: Patient remains free from falls and injury. [facility] [employer] [facility] 06-24-2023 Plan of care note Problem: Pain Goal: Patient goal is pain score less than 4, able to rest, and participant in treatment plan as appropriate Description: INTERVENTIONS: 1. Encourage patient or legal communications representative to report early pain and ask for pain medicine when needed 2. Assess pain using appropriate pain scale and include the scale used when documenting 3. Administer analgesics based on type and severity of pain and evaluate response within appropriate time frame 4. Implement non-pharmacological measures as appropriate and evaluate response 5. Consider cultural and social influences on pain and pain management 6. Notify LIP if interventions ineffective or patient reports new pain 7. Monitor vital signs including pulse ox, end-tidal CO2 based on pain intervention 8. Reassess pain per policy 9. Teach patient or legal communications representative interventions for comforting Outcome: Progressing Note: Evaluation of progress towards goal: Patient demonstrated the use of appropriate diversional activities and relaxation skills, and maintained pain less than 2 on a rating scale of 0 out of 10. Problem: Knowledge Deficit Goal: Patient/patient communications representative demonstrates understanding of disease process, treatment plan, medications, and discharge instructions Description: INTERVENTIONS 1. Complete learning assessment and assess knowledge base 2. Provide teaching at level of understanding 3. Provide teaching via preferred learning method(s) Outcome: Progressing Note: Evaluation of progress towards goal: Continue to address and identify knowledge deficits through patient education and interaction. [facility] [employer] 06-24-2023 Progress note Formatting of t his note is different from the original. Physical Therapy Treatment Discharge Recommendations PT Recommendations: Home Home Recommendations: Intermittent caregiver support for: (safety and assistance with ADLs) Post Discharge Therapy Recommendations: Outpatient Physical Therapy 6 Clicks: Basic Mobility Turning from your back to your side while in a flat bed without using bed rails?: None Moving from lying on your back to sitting on side of flat bed without using bed rails?: None Moving to and from bed to a chair (including w/c)?: A little Standing up from a chair using your arms (e.g. w/c or bedside chair)?: A little To walk in hospital room?: A little Climbing 3-5 steps with a railing?: A little Scoring 6 Clicks: Basic Mobility Raw Score: 20 CMS G Code Modifier: CJ Therapy Plan Need for skilled Physical Therapy to address deficits in functional mobility due to a status decline resulting from hypoxia. PT Treatment/Interventions: ADL retraining, Functional transfer training, LE strengthening/ROM, Endurance training, Patient/family training, Balance, Stair training, Gait training, Coordination activities, Gross motor developmental skills, Neuromuscular reeducation PT Frequency: 3-4days/week PT Duration: 10 days Patient Response to Treatment: Improving as expected Assessment Patient Assessment Therapy Problem List: Abnormal posture, Decreased ADL status, Decreased balance, Decreased endurance, Decreased gross motor, Decreased high-level ADLs, Decreased mobility, Decreased LE strength Patient Response to Treatment: Improving as expected Mood/Affect: Appropriate for circumstances Rehab Prognosis: Good, With continued PT status post acute discharge Visit RN Communication: Yes Medical Record Reviewed: Yes PT Type of Visit: Treatment Precautions Activity: okay to treat per SHABNAM Cardona Equipment: Non skid socks, walker, gait belt Pain Assessment Pain Assessment: No/denies pain Cognition Orientation Level: Oriented X4 Bed Mobility Supine to Sit: Stand by assist Sit to Supine: Stand by assist Transfers Sit to Stand: Standby assist Stand to Sit: Standby assist Gait Base of Support: Narrow Pattern: Decreased ginger, Forward trunk Gait Assistance: Standby assist Assistive Device: Rolling walker Gait Distance: 150 feet Limiting Factors to Gait: Weakness 2 Turns: Yes Balance Sitting Balance: Static: Good Sitting Balance: Dynamic: Good Standing Balance: Static: Good, Fair Standing Balance: Dynamic: Fair 06/24/23 0900 TKA TKA exercises performed? No Activity Tolerance Endurance: Tolerates <30 minutes activity WITHOUT vital sign changes Plan Physical Therapy Care Plan Physical Therapy Care Plan (Active) Template: PT - Physical Therapy Problem: Activity Tolerance Dates: Start: 06/23/23 Disciplines: PT Goal: Patient's goal is: (specify details) Dates: Start: 06/23/23 Expected End: 07/02/23 Disciplines: PT Problem: Gait Dates: Start: 06/23/23 Disciplines: PT Goal: Patient will perform gait with Stand By Assist Dates: Start: 06/23/23 Expected End: 07/02/23 Description: Pt will ambulate 300' with least restrictive assistive device in order to demonstrate ability to perform household ambulation Disciplines: PT Outcomes Date/Time User Outcome 06/24/23933 Ernst Arroyo PTA Progressing Goal Note filed on 06/24/23933 by Ernst Arroyo PTA Evaluation of progress towards goal: Pt amb 150 feet with walker SBA. Problem: Standing Balance Dates: Start: 06/23/23 Disciplines: PT Goal: Improve balance to good Dates: Start: 06/23/23 Expected End: 07/02/23 Description: In order to decrease fall risk Disciplines: PT Physical Therapy Care Plan (Resolved) There are no resolved problems. Principal Problem: Hypoxia Active Problems: Stage 3a chronic kidney disease (CMS-HCC) Benign essential HTN Diabetes mellitus (CMS-HCC) Mixed hyperlipidemia Associated attestation - Rhett Villalobos, PT - 06/24/2023 11:53 AM EST I have reviewed and agree with this note and education documentation for this visit. [facility] 06-24-2023 Plan of care note Problem: Pain Goal: Patient goal is pain score less than 4, able to rest, and participant in treatment plan as appropriate Description: INTERVENTIONS: 1. Encourage patient or legal communications representative to report early pain and ask for pain medicine when needed 2. Assess pain using appropriate pain scale and include the scale used when documenting 3. Administer analgesics based on type and severity of pain and evaluate response within appropriate time frame 4. Implement non-pharmacological measures as appropriate and evaluate response 5. Consider cultural and social influences on pain and pain management 6. Notify LIP if interventions ineffective or patient reports new pain 7. Monitor vital signs including pulse ox, end-tidal CO2 based on pain intervention 8. Reassess pain per policy 9. Teach patient or legal communications representative interventions for comforting Outcome: Progressing Note: Evaluation of progress towards goal: patient able to report pain on 0-10 scale. Pain medications provided as ordered. Problem: Safety Goal: Patient will be injury free during hospitalization Description: INTERVENTIONS: 1. Assess patient's risk for falls and implement fall prevention plan of care per policy 2. Provide and maintain a safe environment 3. Proper use of double Identifiers 4. Medication administration using the 5 rights 5. Hand hygiene 6. Specimens are labeled at the bedside 7. Instruct patient/ patient communications representative about use of safety devices 8. Include patient/ patient communications representative in decisions related to safety Outcome: Progressing Note: Evaluation of progress towards goal: Patient remains free from falls and injury. [facility] 06-23-2023 Progress note Formatting of t his note is different from the original. Physical Therapy Evaluation Discharge Recommendations PT Recommendations: Home Home Recommendations: Intermittent caregiver support for: (Occasional assistance needed with lifting/carrying heavier objects such as groceries or trash) Post Discharge Therapy Recommendations: Outpatient Physical Therapy Past Medical History: Diagnosis Date Breast cancer ([facility] [place]) 2001 LT Breast cancer ([facility] [place] 07/26/2021 RIGHT Diabetes [facility] [place]) Diabetes mellitus type 2, controlled ([facility] [place]) HTN (hypertension) Hyperlipidemia [place] (my[place] infarction) ([facility] [place]) Pneumonia Restless leg Stage 3a chronic kidney disease ([facility] [place]) 07/18/2022 Past Surgical History: Procedure Laterality Date BREAST BIOPSY BREAST LUMPECTOMY Left 2001 RADIATION AND CHEMO BREAST LUMPECTOMY Right 08/12/2021 CATARACT EXTRACTION CHOLECYSTECTOMY COLECTOMY COLONOSCOPY 12/15/2015 Dr. Cortez COLONOSCOPY N/A 01/13/2021 Performed by Wilberto Hughes DO at [facility] HYSTERECTOMY MASTECTOMY Right MASTECTOMY W/ SENTINEL NODE BIOPSY Right 09/02/2021 OOPHORECTOMY REPAIR HERNIA VENTRAL. incarcerated N/A 08/16/2018 Performed by Kemar Beltre MD at [facility] 6 Clicks: Basic Mobility Turning from your back to your side while in a flat bed without using bed rails?: None Moving from lying on your back to sitting on side of flat bed without using bed rails?: None Moving to and from bed to a chair (including w/c)?: A little Standing up from a chair using your arms (e.g. w/c or bedside chair)?: A little To walk in hospital room?: A little Climbing 3-5 steps with a railing?: A little Scoring 6 Clicks: Basic Mobility Raw Score: 20 CMS G Code Modifier: CJ Therapy Plan Need for skilled Physical Therapy to address deficits in functional mobility due to a status decline resulting from hypoxia. PT Treatment/Interventions: ADL retraining, Functional transfer training, LE strengthening/ROM, Endurance training, Patient/family training, Balance, Stair training, Gait training, Coordination activities, Gross motor developmental skills, Neuromuscular reeducation PT Frequency: 3-4days/week PT Duration: 10 days Patient Response to Treatment: Tolerated evaluation without adverse reaction Assessment Patient Assessment Therapy Problem List: Abnormal posture, Decreased ADL status, Decreased balance, Decreased endurance, Decreased gross motor, Decreased high-level ADLs, Decreased mobility, Decreased LE strength Patient Response to Treatment: Tolerated evaluation without adverse reaction Mood/Affect: Appropriate for circumstances Rehab Prognosis: Good Visit RN Communication: Yes Medical Record Reviewed: Yes PT Type of Visit: Evaluation Precautions Activity: Early mobility pass, okay to treat per RN Equipment: Non skid socks, walker, gait belt Telemetry/Panel Edge Sealer: Yes Home Living Type of Home: Apartment Home Layout: One level Stairs to Enter: 2 Hand Rails: Left Bathroom Shower/Tub: Tub/shower unit Bathroom Toilet: Standard Bathroom Equipment: Grab bars in shower Home Equipment: Rolling walker, Cane Prior Function Lives With: Alone Receives Help From: Family Level of Mobility: Independent with ADLs and functional transfers or gait Homemaking Assistance: Independent Other: Pt reports being being able to cook, clean, and ambulate with AD; only recieve help lifting and carrying groceries and trash which her sister helps her with Hearing / Speech / Vision Hearing: Within Functional Limits Current Vision: Other (Comment) (Glasses for distances) Cognition Orientation Level: Oriented X4 Sensation Overall Sensation Status: (Numbness/tningling in LEs) Perception / Proprioception Overall Status: (Dereased) Bed Mobility Rolling: Stand by assist Supine to Sit: Stand by assist Sit to Supine: Stand by assist Transfers Sit to Stand: Standby assist Stand to Sit: Standby assist Stand Pivot Transfers: Contact guard assist Gait Base of Support: Narrow Pattern: Decreased ginger, Forward trunk Gait Assistance: Contact guard assist, Standby assist Assistive Device: Rolling walker Gait Distance: 100' Limiting Factors to Gait: Weakness Balance Sitting Balance: Static: Good Sitting Balance: Dynamic: Good Standing Balance: Static: Good, Fair Standing Balance: Dynamic: Fair RLE Assessment: (Generalized weakness) LLE Assessment: (Generalized weakness) Activity Tolerance Endurance: Tolerates <30 minutes activity with vital sign changes Other: Pt tolerated the session well with reports of increasing fatigue throughout the session. Pt reports her legs were wobbly at the end the session and she feels weaker than normal Plan Physical Therapy Care Plan Physical Therapy Care Plan (Active) Template: PT - Physical Therapy Problem: Activity Tolerance Dates: Start: 06/23/23 Disciplines: PT Goal: Patient's goal is: (specify details) Dates: Start: 06/23/23 Description: Goal Description: Disciplines: PT Problem: Gait Dates: Start: 06/23/23 Disciplines: PT Goal: Patient will perform gait with Stand By Assist Dates: Start: 06/23/23 Description: With____,____feet Goal Description: Disciplines: PT Problem: Standing Balance Dates: Start: 06/23/23 Disciplines: PT Goal: Improve balance to good Dates: Start: 06/23/23 Description: Static Dynamic Disciplines: PT Physical Therapy Care Plan (Resolved) There are no resolved problems. Principal Problem: Hypoxia Active Problems: Stage 3a chronic kidney disease ([facility]-H[facility]) Benign essential HTN Diabetes mellitus ([facility]) Mixed [facility] [employer] [facility]23[facility] Plan of care note Problem: Pain Goal: Patient goal is pain score less than 4, able to rest, and participant in treatment plan as appropriate Description: INTERVENTIONS: 1. Encourage patient or legal communications representative to report early pain and ask for pain medicine when needed 2. Assess pain using appropriate pain scale and include the scale used when documenting 3. Administer analgesics based on type and severity of pain and evaluate response within appropriate time frame 4. Implement non-pharmacological measures as appropriate and evaluate response 5. Consider cultural and social influences on pain and pain management 6. Notify LIP if interventions ineffective or patient reports new pain 7. Monitor vital signs including pulse ox, end-tidal CO2 based on pain intervention 8. Reassess pain per policy 9. Teach patient or legal communications representative interventions for comforting Outcome: Progressing Note: Evaluation of progress towards goal: patient able to report pain on 0-10 scale. Pain medications provided as ordered. Problem: Safety Goal: Patient will be injury free during hospitalization Description: INTERVENTIONS: 1. Assess patient's risk for falls and implement fall prevention plan of care per policy 2. Provide and maintain a safe environment 3. Proper use of double Identifiers 4. Medication administration using the 5 rights 5. Hand hygiene 6. Specimens are labeled at the bedside 7. Instruct patient/ patient communications representative about use of safety devices 8. Include patient/ patient communications representative in decisions related to safety Outcome: Progressing Note: Evaluation of progress towards goal: Patient remains free from falls and injury. [facility] Progress note Formatting of t his note might be different from the original. DISCHARGE PLANNING NOTE Follow-up Discharge Planning Progress Note Per RN during discharge transition rounds, barriers to discharge are: Hypoxia, Right PE, IV meds, Echo. PT/OT evals, from home alone Discharge Plan: Under assessment. Admit to inpatient today. Care Navigation will continue to follow for any discharge needs [facility]-22-2023 Plan of care note Problem: Pain Goal: Patient goal is pain score less than 4, able to rest, and participant in treatment plan as appropriate Description: INTERVENTIONS: 1. Encourage patient or legal communications representative to report early pain and ask for pain medicine when needed 2. Assess pain using appropriate pain scale and include the scale used when documenting 3. Administer analgesics based on type and severity of pain and evaluate response within appropriate time frame 4. Implement non-pharmacological measures as appropriate and evaluate response 5. Consider cultural and social influences on pain and pain management 6. Notify LIP if interventions ineffective or patient reports new pain 7. Monitor vital signs including pulse ox, end-tidal CO2 based on pain intervention 8. Reassess pain per policy 9. Teach patient or legal communications representative interventions for comforting Outcome: Progressing Note: Evaluation of progress towards goal: Pt reports no pain. Pain goal is 0 out of 10. Will continue to monitor. Problem: Safety Goal: Patient will be injury free during hospitalization Description: INTERVENTIONS: 1. Assess patient's risk for falls and implement fall prevention plan of care per policy 2. Provide and maintain a safe environment 3. Proper use of double Identifiers 4. Medication administration using the 5 rights 5. Hand hygiene 6. Specimens are labeled at the bedside 7. Instruct patient/ patient communications representative about use of safety devices 8. Include patient/ patient communications representative in decisions related to safety Outcome: Progressing Note: Evaluation of progress towards goal: Pt has remained free of injury. Will continue to reinforce protocols for patient and staff. [facility] 06-22-2023 History and physical note Images from the original note were not included. [facility] MD Francisca Balbuena, MD Danie Chavez, MD Sonia Hughes, MD Tricia Jimenes, MD Madelaine Vo, MD Yousuf Garcia, MD Odette Kim, MD Dayanna Cartagena, BODY STRAIGHTENER Aniya Chou, BODY STRAIGHTENER Nay [address], BODY STRAIGHTENER Carmen Lopez, BODY STRAIGHTENER Jessica Pérez, BODY STRAIGHTENER Jessica Bains, BODY STRAIGHTENER Renetta Butcher, BODY STRAIGHTENER Niesha Morton, BODY STRAIGHTENER Mauro Toney, BODY STRAIGHTENER Treva Gomez, TEJINDER Slater, TEJINDER Marin, BODY STRAIGHTENER Juliana Graff, TEJINDER Ackerman, TEJINDER Wei, TEJINDER Gutierrez, TEJINDER Elmore, TEJINDER Marcos, BODY STRAIGHTENER [facility] Medicine History & Physical Patient: Kay Ly Date of : 1940 Room: [facility] PCP: SHAIKH ISELA MD Admission date: 06/21/2023 4:23 PM Encounter date: 06/22/23 SUBJECTIVE Kay Ly is a 82 y.o. female who presents with shortness a breath and hypoxia. States she has been gradually worsening shortness a breath over the past several weeks, had outpatient primary care visit today that noted her to be hypoxic at 84% on room air. Does not normally wear oxygen. States no history of COPD or asthma, no history of CHF. Denies any chest pain with the shortness a breath. States that she has a cough that is productive of clear to white sputum. No fever chills or other infectious symptoms. States occasionally has lower extremity edema, does not feel particularly swollen at this time. ER Course: No leukocytosis. D-dimer age adjusted normal. Metabolic panel shows slight hyperglycemia consistent with diabetes. Slightly elevated creatinine consistent with CKD. BNP 147. Troponin negative. Procalcitonin 0.07. Viral panel negative for flu, RSV, COVID. Chest x-ray shows pulmonary congestion and right pleural effusion. Chief Complaint Patient presents with Shortness of Breath Allergies: Lisinopril Prior to Admission medications Medication Sig Start Date End Date Taking? Authorizing Provider alogliptin-metFORMIN 12.5-1,000 mg tablet Take 12.5 mg by mouth daily. Not In System Ref Prov aspirin 81 mg Take 1 tablet (81 mg total) by mouth in the morning. Not In System Ref Prov atorvastatin (LIPITOR) 80 mg tablet Take 1 tablet (80 mg total) by mouth in the morning. Not In System Ref Prov carvedilol (COREG) 3.125 mg tablet Take 4 tablets (12.5 mg total) by mouth in the morning. Not In System Ref Prov furosemide (LASIX) 40 mg tablet Take 0.5 tablets (20 mg total) by mouth daily. 05/30/22 Not In System Ref Prov hydroCHLOROthiazide (HYDRODIURIL) 25 mg tablet hydrochlorothiazide 25 mg tablet TAKE 1 TABLET BY MOUTH EVERY DAY Not In System Ref Prov insulin glargine (LANTUS) 100 unit/mL injection Inject 0.35 mL (35 Units total) under the skin in the morning. 08/08/21 Not In System Ref Prov letrozole (FEMARA) 2.5 mg chemo tablet Take 1 tablet by mouth daily 08/01/22 07/27/23 Dean Gunter MD levothyroxine (SYNTHROID, LEVOTHROID) 50 MCG tablet Take 1 tablet (50 mcg total) by mouth in the morning. Not In System Ref Prov losartan (COZAAR) 25 mg tablet Take 1 tablet (25 mg total) by mouth daily. Not In System Ref Prov metFORMIN (GLUCOPHAGE) 1000 mg tablet Take 1 tablet (1,000 mg total) by mouth in the morning and 1 tablet (1,000 mg total) in the evening. Take with meals. Not In System Ref Prov pregabalin (LYRICA) 75 mg capsule Take 2 capsules (150 mg total) by mouth in the morning and 2 capsules (150 mg total) before bedtime. Not In System Ref Prov rOPINIRole (REQUIP) 3 mg tablet Take 5 mg by mouth 3 (three) times a day. Not In System Ref Prov Past Medical History: Patient has a past medical history of Breast cancer ([facility] [place]) (2001), Breast cancer ([facility] [place]) (07/26/2021), Diabetes ([facility] [place]), Diabetes mellitus type 2, controlled ([facility] [place]), HTN (hypertension), Hyperlipidemia, [place] (myocardial infarction) ([facility] [place]), Pneumonia, Restless leg, and Stage 3a chronic kidney disease ([facility] [place]) (07/18/2022). Past Surgical History: Patient has a past surgical history that includes Hysterectomy; Cataract extraction; Cholecystectomy; Colectomy; Colonoscopy (12/15/2015); Oophorectomy; Breast lumpectomy (Left, 2001); Breast biopsy; Ventral hernia repair (N/A, 08/16/2018); Colonoscopy (N/A, 01/13/2021); Breast lumpectomy (Right, 08/12/2021); Mastectomy w/ sentinel node biopsy (Right, 09/02/2021); and Mastectomy (Right). Family History: Patient's family history includes Jose L Breast Cancer in her daughter; Breast cancer in her sister; Breast cancer (age of onset: 56) in her daughter; Heart attack in her father; Hypertension in her father and mother; Lung cancer (age of onset: 80) in her father. Social History: Patient reports that she quit smoking about 2 months ago. Her smoking use included cigarettes. She has a 30 pack-year smoking history. She has never used smokeless tobacco. She reports current alcohol use of about 2.0 standard drinks of alcohol per week. She reports that she does not use drugs. Review of Systems Review of Systems Constitutional: Negative for activity change, appetite change, chills, diaphoresis, fatigue and fever. HENT: Negative for tinnitus and trouble swallowing. Respiratory: Positive for cough and shortness of breath. Negative for chest tightness and wheezing. Cardiovascular: Negative for chest pain, palpitations and leg swelling. Gastrointestinal: Negative for abdominal pain, diarrhea, nausea and vomiting. Genitourinary: Negative for difficulty urinating. Musculoskeletal: Negative for gait problem. Skin: Negative for rash. Neurological: Negative for dizziness, syncope, speech difficulty, weakness, light-headedness, numbness and headaches. Psychiatric/Behavioral: Negative for sleep disturbance. OBJECTIVE BP 93/63 Pulse 62 Temp 36.4 C (97.6 F) (Temporal) Resp 24 Ht 152.4 cm (5') Wt 93.7 kg (206 lb 9.1 oz) SpO2 98% BMI 40.34 kg/m Intake/Output Summary (Last 24 hours) at 06/22/2023 1502 Last data filed at 06/22/2023 0928 Gross per 24 hour Intake 200 ml Output 3200 ml Net -3000 ml Physical Exam Physical Exam Vitals and nursing note reviewed. Constitutional: General: She is not in acute distress. HENT: Head: Normocephalic and atraumatic. Right Ear: External ear normal. Left Ear: External ear normal. Nose: Nose normal. Mouth/Throat: Mouth: Mucous membranes are moist. Pharynx: Oropharynx is clear. Eyes: Extraocular Movements: Extraocular movements intact. Pupils: Pupils are equal, round, and reactive to light. Neck: Vascular: No carotid bruit or JVD. Cardiovascular: Rate and Rhythm: Normal rate and regular rhythm. Pulses: Normal pulses. Pulmonary: Effort: Pulmonary effort is normal. Breath sounds: Normal breath sounds. Abdominal: General: Bowel sounds are normal. Palpations: Abdomen is soft. Tenderness: There is no abdominal tenderness. There is no right CVA tenderness or left CVA tenderness. Musculoskeletal: Right lower le+ Pitting Edema present. Left lower le+ Pitting Edema present. Lymphadenopathy: Cervical: No cervical adenopathy. Skin: General: Skin is warm and dry. Capillary Refill: Capillary refill takes less than 2 seconds. Neurological: General: No focal deficit present. Mental Status: She is alert and oriented to person, place, and time. Psychiatric: Mood and Affect: Mood normal. Behavior: Behavior normal. Thought Content: Thought content normal. Judgment: Judgment normal. Medications Scheduled: aspirin, 81 mg, oral, Daily atorvastatin, 80 mg, oral, Daily carvediloL, 12.5 mg, oral, Daily enoxaparin (LOVENOX) injection, 30 mg, subcutaneous, Daily furosemide, 40 mg, intravenous, Q12H SHIVANI hydroCHLOROthiazide, 25 mg, oral, Daily insulin glargine, 35 Units, subcutaneous, Daily levothyroxine, 50 mcg, oral, Daily losartan, 25 mg, oral, Daily pantoprazole, 40 mg, oral, QAM AC pregabalin, 150 mg, oral, BID rOPINIRole, 5 mg, oral, TID sodium chloride, 3 mL, intravenous, Q12H SHIVANI Infusions: dextrose 5 % in water, 100 mL/hr sodium chloride 0.9 %, 20 mL/hr As Needed: acetaminophen alum-mag hydroxide-simeth dextrose dextrose 5 % in water dextrose 50 % in water (D50W) glucagon (human recombinant) magnesium sulfate magnesium sulfate ondansetron potassium chloride OR potassium chloride sennosides-docusate sodium sodium chloride sodium chloride sodium chloride 0.9 % Allergies: Lisinopril Labs Recent Results (from the past 24 hour(s)) CBC auto differential Collection Time: 06/21/23 4:33 PM Result Value Ref Range White Blood Cells 7.6 4.0 - 11.0 X10E9/L RBC count 4.27 3.80 - 5.20 X10E12/L Hemoglobin 12.4 11.7 - 15.5 g/dL Hematocrit 37.3 35 - 47 % MCV 88 80 - 100 fL MCH 29.1 27 - 34 pg MCHC 33.2 32 - 36 g/dL RDW 17.6 (H) 11.5 - 15.0 % Platelets 129 (L) 150 - 450 X10E9/L MPV 8.6 7 - 12 fL % neutrophils 79.6 % % lymphocytes 12.3 % % monocytes 5.7 % % eosinophils 1.5 % % Basophils 0.9 % Neutrophils Absolute (A) 6.0 1.5 - 6.6 X10E9/L Lymphocytes Absolute 0.9 (L) 1.0 - 3.5 X10E9/L Monocytes Absolute 0.4 0 - 0.9 X10E9/L Eosinophils Absolute 0.1 0.0 - 0.4 X10E9/L Basophils Absolute 0.1 0.0 - 0.2 X10E9/L Comprehensive metabolic panel Collection Time: 06/21/23 4:33 PM Result Value Ref Range Sodium 140 134 - 146 mmol/L Potassium, Bld 4.2 3.5 - 5.0 mmol/L Chloride 104 98 - 109 mmol/L CO2 28 22 - 32 mmol/L Anion gap 8 5 - 15 mmol/L BUN 21 5 - 27 mg/dL Creatinine 1.23 (H) 0.40 - 1.00 mg/dL Glucose 159 (H) 65 - 99 mg/dL Calcium 9.2 8.5 - 10.5 mg/dL Total Protein 7.4 6.0 - 8.0 g/dL Albumin 4.0 3.2 - 5.3 g/dL Alkaline Phosphatase 94 39 - 130 U/L AST 24 0 - 41 U/L ALT 28 0 - 31 U/L Total bilirubin 0.7 0.3 - 1.2 mg/dL eGFR (CKD-EPI)non-race dependent 44 (L) >59 ml/min/1.73sq.m Troponin I Collection Time: 06/21/23 4:33 PM Result Value Ref Range Troponin I 0.01 0.00 - 0.04 ng/mL Procalcitonin Collection Time: 06/21/23 4:33 PM Result Value Ref Range Procalcitonin 0.07 (H) <0.05 ng/mL D-Dimer Collection Time: 06/21/23 4:33 PM Result Value Ref Range D-dimer 268 (H) <255 ng/mL DDU B-type natriuretic peptide Collection Time: 06/21/23 4:33 PM Result Value Ref Range BNP 147 (H) <100.0 pg/mL SARS/FLU A+B/RSV by NAAT/Molecular (M4RT Collection Tube) Collection Time: 06/21/23 6:47 PM Result Value Ref Range FLU A PCR Negative Negative^Negative FLU B PCR Negative Negative^Negative RSV by PCR Negative Negative^Negative SARS CoV 2 BY PCR Not Detected Not Detected^Not Detected Magnesium Collection Time: 06/22/23 3:04 AM Result Value Ref Range Magnesium 2.0 1.8 - 2.6 mg/dL CBC without diff Collection Time: 06/22/23 3:04 AM Result Value Ref Range White Blood Cells 7.6 4.0 - 11.0 X10E9/L RBC count 4.05 3.80 - 5.20 X10E12/L Hemoglobin 11.7 11.7 - 15.5 g/dL Hematocrit 35.5 35 - 47 % MCV 88 80 - 100 fL MCH 29.0 27 - 34 pg MCHC 33.1 32 - 36 g/dL RDW 18.1 (H) 11.5 - 15.0 % Platelets 135 (L) 150 - 450 X10E9/L MPV 8.1 7 - 12 fL Auto Diff (add on use only) Collection Time: 06/22/23 3:04 AM Result Value Ref Range % neutrophils 80.4 % % lymphocytes 9.8 % % monocytes 6.8 % % eosinophils 1.7 % % Basophils 1.3 % Neutrophils Absolute (A) 6.1 1.5 - 6.6 X10E9/L Lymphocytes Absolute 0.7 (L) 1.0 - 3.5 X10E9/L Monocytes Absolute 0.5 0 - 0.9 X10E9/L Eosinophils Absolute 0.1 0.0 - 0.4 X10E9/L Basophils Absolute 0.1 0.0 - 0.2 X10E9/L Bedside Glucose *Place/Obtain serum glucose if >500(>600 MRH) per glucometer. Collection Time: 06/22/23 9:04 AM Result Value Ref Range Bedside glucose 183 (H) 65 - 99 mg/dL Basic Metabolic Panel Collection Time: 06/22/23 12:15 PM Result Value Ref Range Sodium 139 134 - 146 mmol/L Potassium, Bld 3.8 3.5 - 5.0 mmol/L Chloride 98 98 - 109 mmol/L CO2 30 22 - 32 mmol/L Anion gap 11 5 - 15 mmol/L BUN 24 5 - 27 mg/dL Creatinine 1.48 (H) 0.40 - 1.00 mg/dL Glucose 243 (H) 65 - 99 mg/dL Calcium 9.0 8.5 - 10.5 mg/dL eGFR (CKD-EPI)non-race dependent 36 (L) >59 ml/min/1.73sq.m Radiology X-ray chest 1 view Result Date: 06/21/2023 Narrative: Portable chest: HISTORY: Shortness of breath. Single [...] Gen Posada MD on 06/21/2023 5:53 PM HOSPITAL PROBLEM LIST Principal Problem: Hypoxia Active Problems: Stage 3a chronic kidney disease ([facility]) Benign essential HTN Diabetes mellitus ([facility]) Mixed hyperlipidemia ASSESSMENT & PLAN Hypoxia: Chest x-ray shows pulmonary congestion with right pleural effusion. O2 as needed. Requiring 2 L per nasal cannula. No oxygen requirements at home. Nebulizer treatments as needed. Hypoxia likely related to fluid overload. BNP elevated. Lasix 40 mg b.i.d. ordered. Daily weight. I&O. Echocardiogram ordered. CKD 3: Creatinine at baseline. Continue to monitor daily with diuresis. Hypertension: Normotensive. Continue home medications. Will hold hydrochlorothiazide while patient is getting IV Lasix. Dm 2: Monitor blood glucose a.c. and HS cover sliding scale insulin. Mixed hyperlipidemia: Continue home statin. Monitor electrolytes daily. Replace electrolytes per protocol. Admission orders placed and home medications reconciled. DVT prophylaxis: EPC's and Lovenox. GI prophylaxis. Protonix PT/OT to evaluate and treat. DC planning: Discharge home in 1-2 days. Mauro Toney APRN-TEJINDER, 06/22/2023 3:02 PM [facility] - [facility] Hospitalists 7AM-7PM: Message rounding DARYL in [email or web address] or page through [employer]. 7PM-7AM: Page on-call DARYL through our answering service, . This note is dictated with the use of M*Modal. Please note that this dictation was completed with computer voice recognition software. Quite often unanticipated grammatical, syntax, homophones, and other interpretive errors are inadvertently transcribed by the computer software. Please disregard these errors. Please excuse any errors that have escaped final proofreading. Mauro Toney APRN-TEJINDER 06/22/23 1511 Attending Addendum: I Dr Yousuf Garcia, personally performed a face to face diagnostic evaluation on this patient. I have reviewed the note authored by the advance practice provider including history, review of systems, physical examination, medical decision making and agree with the assessment and plan as written. I have seen and evaluated the patient,I have repeated the zhang portions of the physical exam and concur with the DARYL findings.I have reviewed all laboratory findings and imaging reprts/films.I agree with the plan as noted. [facility] 06-22-2023 History and physical note Images from the original note were not included. [facility] HOSPITALISTS MD Francisca Balbuena, MD Sonia Brink MD Ruqiyya Muhammad, MD Kanchan Pillai, MD Yousuf Garcia, MD Odette Kim, MD Dayanna Cartagena, BODY STRAIGHTENER Aniya Chou, BODY STRAIGHTENER Nay [address], BODY STRAIGHTENER Carmen Lopez, BODY STRAIGHTENER Jessica Pérez, BODY STRAIGHTENER Jessica Bains, TEJINDER Butcher, TEJINDER Morton, TEJINDER Toney, TEJINDER Gomez, TEJINDER Slater, TEJINDER Marin, BODY STRAIGHTENER Juliana Graff, BODY STRAIGHTENER Joanna Ackerman, BODY STRAIGHTENER Macrina Wei, BODY STRAIGHTENER Jamia Gutierrez, TEJINDER Elmore, TEJINDER Marcos, BODY STRAIGHTENER Hospital Medicine History & Physical Patient: Kay Ly Date of : 1940 Room: [facility] PCP: SHAIKH ISELA MD Admission date: 06/21/2023 4:23 PM Encounter date: 06/22/23 SUBJECTIVE Kay Ly is a 82 y.o. female who presents with shortness a breath and hypoxia. States she has been gradually worsening shortness a breath over the past several weeks, had outpatient primary care visit today that noted her to be hypoxic at 84% on room air. Does not normally wear oxygen. States no history of COPD or asthma, no history of CHF. Denies any chest pain with the shortness a breath. States that she has a cough that is productive of clear to white sputum. No fever chills or other infectious symptoms. States occasionally has lower extremity edema, does not feel particularly swollen at this time. ER Course: No leukocytosis. D-dimer age adjusted normal. Metabolic panel shows slight hyperglycemia consistent with diabetes. Slightly elevated creatinine consistent with CKD. BNP 147. Troponin negative. Procalcitonin 0.07. Viral panel negative for flu, RSV, COVID. Chest x-ray shows pulmonary congestion and right pleural effusion. Chief Complaint Patient presents with Shortness of Breath Allergies: Lisinopril Prior to Admission medications Medication Sig Start Date End Date Taking? Authorizing Provider alogliptin-metFORMIN 12.5-1,000 mg tablet Take 12.5 mg by mouth daily. Not In System Ref Prov aspirin 81 mg Take 1 tablet (81 mg total) by mouth in the morning. Not In System Ref Prov atorvastatin (LIPITOR) 80 mg tablet Take 1 tablet (80 mg total) by mouth in the morning. Not In System Ref Prov carvedilol (COREG) 3.125 mg tablet Take 4 tablets (12.5 mg total) by mouth in the morning. Not In System Ref Prov furosemide (LASIX) 40 mg tablet Take 0.5 tablets (20 mg total) by mouth daily. 05/30/22 Not In System Ref Prov hydroCHLOROthiazide (HYDRODIURIL) 25 mg tablet hydrochlorothiazide 25 mg tablet TAKE 1 TABLET BY MOUTH EVERY DAY Not In System Ref Prov insulin glargine (LANTUS) 100 unit/mL injection Inject 0.35 mL (35 Units total) under the skin in the morning. 08/08/21 Not In System Ref Prov letrozole (FEMARA) 2.5 mg chemo tablet Take 1 tablet by mouth daily 08/01/22 07/27/23 Dean Gunter MD levothyroxine (SYNTHROID, LEVOTHROID) 50 MCG tablet Take 1 tablet (50 mcg total) by mouth in the morning. Not In System Ref Prov losartan (COZAAR) 25 mg tablet Take 1 tablet (25 mg total) by mouth daily. Not In System Ref Prov metFORMIN (GLUCOPHAGE) 1000 mg tablet Take 1 tablet (1,000 mg total) by mouth in the morning and 1 tablet (1,000 mg total) in the evening. Take with meals. Not In System Ref Prov pregabalin (LYRICA) 75 mg capsule Take 2 capsules (150 mg total) by mouth in the morning and 2 capsules (150 mg total) before bedtime. Not In System Ref Prov rOPINIRole (REQUIP) 3 mg tablet Take 5 mg by mouth 3 (three) times a day. Not In System Ref Prov Past Medical History: Patient has a past medical history of Breast cancer ([facility]) (2001), Breast cancer ([facility]) (07/26/2021), Diabetes ([facility]), Diabetes mellitus type 2, controlled ([facility]), HTN (hypertension), Hyperlipidemia, [place] (myocardial infarction) ([facility]), Pneumonia, Restless leg, and Stage 3a chronic kidney disease ([facility]) (07/18/2022). Past Surgical History: Patient has a past surgical history that includes Hysterectomy; Cataract extraction; Cholecystectomy; Colectomy; Colonoscopy (12/15/2015); Oophorectomy; Breast lumpectomy (Left, 2001); Breast biopsy; Ventral hernia repair (N/A, 08/16/2018); Colonoscopy (N/A, 01/13/2021); Breast lumpectomy (Right, 08/12/2021); Mastectomy w/ sentinel node biopsy (Right, 09/02/2021); and Mastectomy (Right). Family History: Patient's family history includes Jose L Breast Cancer in her daughter; Breast cancer in her sister; Breast cancer (age of onset: 56) in her daughter; Heart attack in her father; Hypertension in her father and mother; Lung cancer (age of onset: 80) in her father. Social History: Patient reports that she quit smoking about 2 months ago. Her smoking use included cigarettes. She has a 30 pack-year smoking history. She has never used smokeless tobacco. She reports current alcohol use of about 2.0 standard drinks of alcohol per week. She reports that she does not use drugs. Review of Systems Review of Systems Constitutional: Negative for activity change, appetite change, chills, diaphoresis, fatigue and fever. HENT: Negative for tinnitus and trouble swallowing. Respiratory: Positive for cough and shortness of breath. Negative for chest tightness and wheezing. Cardiovascular: Negative for chest pain, palpitations and leg swelling. Gastrointestinal: Negative for abdominal pain, diarrhea, nausea and vomiting. Genitourinary: Negative for difficulty urinating. Musculoskeletal: Negative for gait problem. Skin: Negative for rash. Neurological: Negative for dizziness, syncope, speech difficulty, weakness, light-headedness, numbness and headaches. Psychiatric/Behavioral: Negative for sleep disturbance. OBJECTIVE BP 93/63 Pulse 62 Temp 36.4 C (97.6 F) (Temporal) Resp 24 Ht 152.4 cm (5') Wt 93.7 kg (206 lb 9.1 oz) SpO2 98% BMI 40.34 kg/m Intake/Output Summary (Last 24 hours) at 06/22/2023 1502 Last data filed at 06/22/2023 0928 Gross per 24 hour Intake 200 ml Output 3200 ml Net -3000 ml Physical Exam Physical Exam Vitals and nursing note reviewed. Constitutional: General: She is not in acute distress. HENT: Head: Normocephalic and atraumatic. Right Ear: External ear normal. Left Ear: External ear normal. Nose: Nose normal. Mouth/Throat: Mouth: Mucous membranes are moist. Pharynx: Oropharynx is clear. Eyes: Extraocular Movements: Extraocular movements intact. Pupils: Pupils are equal, round, and reactive to light. Neck: Vascular: No carotid bruit or JVD. Cardiovascular: Rate and Rhythm: Normal rate and regular rhythm. Pulses: Normal pulses. Pulmonary: Effort: Pulmonary effort is normal. Breath sounds: Normal breath sounds. Abdominal: General: Bowel sounds are normal. Palpations: Abdomen is soft. Tenderness: There is no abdominal tenderness. There is no right CVA tenderness or left CVA tenderness. Musculoskeletal: Right lower le+ Pitting Edema present. Left lower le+ Pitting Edema present. Lymphadenopathy: Cervical: No cervical adenopathy. Skin: General: Skin is warm and dry. Capillary Refill: Capillary refill takes less than 2 seconds. Neurological: General: No focal deficit present. Mental Status: She is alert and oriented to person, place, and time. Psychiatric: Mood and Affect: Mood normal. Behavior: Behavior normal. Thought Content: Thought content normal. Judgment: Judgment normal. Medications Scheduled: aspirin, 81 mg, oral, Daily atorvastatin, 80 mg, oral, Daily carvediloL, 12.5 mg, oral, Daily enoxaparin (LOVENOX) injection, 30 mg, subcutaneous, Daily furosemide, 40 mg, intravenous, Q12H SHIVANI hydroCHLOROthiazide, 25 mg, oral, Daily insulin glargine, 35 Units, subcutaneous, Daily levothyroxine, 50 mcg, oral, Daily losartan, 25 mg, oral, Daily pantoprazole, 40 mg, oral, QAM AC pregabalin, 150 mg, oral, BID rOPINIRole, 5 mg, oral, TID sodium chloride, 3 mL, intravenous, Q12H SHIVANI Infusions: dextrose 5 % in water, 100 mL/hr sodium chloride 0.9 %, 20 mL/hr As Needed: acetaminophen alum-mag hydroxide-simeth dextrose dextrose 5 % in water dextrose 50 % in water (D50W) glucagon (human recombinant) magnesium sulfate magnesium sulfate ondansetron potassium chloride OR potassium chloride sennosides-docusate sodium sodium chloride sodium chloride sodium chloride 0.9 % Allergies: Lisinopril Labs Recent Results (from the past 24 hour(s)) CBC auto differential Collection Time: 06/21/23 4:33 PM Result Value Ref Range White Blood Cells 7.6 4.0 - 11.0 X10E9/L RBC count 4.27 3.80 - 5.20 X10E12/L Hemoglobin 12.4 11.7 - 15.5 g/dL Hematocrit 37.3 35 - 47 % MCV 88 80 - 100 fL MCH 29.1 27 - 34 pg MCHC 33.2 32 - 36 g/dL RDW 17.6 (H) 11.5 - 15.0 % Platelets 129 (L) 150 - 450 X10E9/L MPV 8.6 7 - 12 fL % neutrophils 79.6 % % lymphocytes 12.3 % % monocytes 5.7 % % eosinophils 1.5 % % Basophils 0.9 % Neutrophils Absolute (A) 6.0 1.5 - 6.6 X10E9/L Lymphocytes Absolute 0.9 (L) 1.0 - 3.5 X10E9/L Monocytes Absolute 0.4 0 - 0.9 X10E9/L Eosinophils Absolute 0.1 0.0 - 0.4 X10E9/L Basophils Absolute 0.1 0.0 - 0.2 X10E9/L Comprehensive metabolic panel Collection Time: 06/21/23 4:33 PM Result Value Ref Range Sodium 140 134 - 146 mmol/L Potassium, Bld 4.2 3.5 - 5.0 mmol/L Chloride 104 98 - 109 mmol/L CO2 28 22 - 32 mmol/L Anion gap 8 5 - 15 mmol/L BUN 21 5 - 27 mg/dL Creatinine 1.23 (H) 0.40 - 1.00 mg/dL Glucose 159 (H) 65 - 99 mg/dL Calcium 9.2 8.5 - 10.5 mg/dL Total Protein 7.4 6.0 - 8.0 g/dL Albumin 4.0 3.2 - 5.3 g/dL Alkaline Phosphatase 94 39 - 130 U/L AST 24 0 - 41 U/L ALT 28 0 - 31 U/L Total bilirubin 0.7 0.3 - 1.2 mg/dL eGFR (CKD-EPI)non-race dependent 44 (L) >59 ml/min/1.73sq.m Troponin I Collection Time: 06/21/23 4:33 PM Result Value Ref Range Troponin I 0.01 0.00 - 0.04 ng/mL Procalcitonin Collection Time: 06/21/23 4:33 PM Result Value Ref Range Procalcitonin 0.07 (H) <0.05 ng/mL D-Dimer Collection Time: 06/21/23 4:33 PM Result Value Ref Range D-dimer 268 (H) <255 ng/mL DDU B-type natriuretic peptide Collection Time: 06/21/23 4:33 PM Result Value Ref Range BNP 147 (H) <100.0 pg/mL SARS/FLU A+B/RSV by NAAT/Molecular (M4RT Collection Tube) Collection Time: 06/21/23 6:47 PM Result Value Ref Range FLU A PCR Negative Negative^Negative FLU B PCR Negative Negative^Negative RSV by PCR Negative Negative^Negative SARS CoV 2 BY PCR Not Detected Not Detected^Not Detected Magnesium Collection Time: 06/22/23 3:04 AM Result Value Ref Range Magnesium 2.0 1.8 - 2.6 mg/dL CBC without diff Collection Time: 06/22/23 3:04 AM Result Value Ref Range White Blood Cells 7.6 4.0 - 11.0 X10E9/L RBC count 4.05 3.80 - 5.20 X10E12/L Hemoglobin 11.7 11.7 - 15.5 g/dL Hematocrit 35.5 35 - 47 % MCV 88 80 - 100 fL MCH 29.0 27 - 34 pg MCHC 33.1 32 - 36 g/dL RDW 18.1 (H) 11.5 - 15.0 % Platelets 135 (L) 150 - 450 X10E9/L MPV 8.1 7 - 12 fL Auto Diff (add on use only) Collection Time: 06/22/23 3:04 AM Result Value Ref Range % neutrophils 80.4 % % lymphocytes 9.8 % % monocytes 6.8 % % eosinophils 1.7 % % Basophils 1.3 % Neutrophils Absolute (A) 6.1 1.5 - 6.6 X10E9/L Lymphocytes Absolute 0.7 (L) 1.0 - 3.5 X10E9/L Monocytes Absolute 0.5 0 - 0.9 X10E9/L Eosinophils Absolute 0.1 0.0 - 0.4 X10E9/L Basophils Absolute 0.1 0.0 - 0.2 X10E9/L Bedside Glucose *Place/Obtain serum glucose if >500(>600 MRH) per glucometer. Collection Time: 06/22/23 9:04 AM Result Value Ref Range Bedside glucose 183 (H) 65 - 99 mg/dL Basic Metabolic Panel Collection Time: 06/22/23 12:15 PM Result Value Ref Range Sodium 139 134 - 146 mmol/L Potassium, Bld 3.8 3.5 - 5.0 mmol/L Chloride 98 98 - 109 mmol/L CO2 30 22 - 32 mmol/L Anion gap 11 5 - 15 mmol/L BUN 24 5 - 27 mg/dL Creatinine 1.48 (H) 0.40 - 1.00 mg/dL Glucose 243 (H) 65 - 99 mg/dL Calcium 9.0 8.5 - 10.5 mg/dL eGFR (CKD-EPI)non-race dependent 36 (L) >59 ml/min/1.73sq.m Radiology X-ray chest 1 view Result Date: 06/21/2023 Narrative: Portable chest: HISTORY: Shortness of breath. Single [...] Gen Posada MD on 06/21/2023 5:53 PM HOSPITAL PROBLEM LIST Principal Problem: Hypoxia Active Problems: Stage 3a chronic kidney disease ([facility]) Benign essential HTN Diabetes mellitus ([facility]) Mixed hyperlipidemia ASSESSMENT & PLAN Hypoxia: Chest x-ray shows pulmonary congestion with right pleural effusion. O2 as needed. Requiring 2 L per nasal cannula. No oxygen requirements at home. Nebulizer treatments as needed. Hypoxia likely related to fluid overload. BNP elevated. Lasix 40 mg b.i.d. ordered. Daily weight. I&O. Echocardiogram ordered. CKD 3: Creatinine at baseline. Continue to monitor daily with diuresis. Hypertension: Normotensive. Continue home medications. Will hold hydrochlorothiazide while patient is getting IV Lasix. Dm 2: Monitor blood glucose a.c. and HS cover sliding scale insulin. Mixed hyperlipidemia: Continue home statin. Monitor electrolytes daily. Replace electrolytes per protocol. Admission orders placed and home medications reconciled. DVT prophylaxis: EPC's and Lovenox. GI prophylaxis. Protonix PT/OT to evaluate and treat. DC planning: Discharge home in 1-2 days. Mauro Toney APRN-TEJINDER, 06/22/2023 3:02 PM [facility] - [facility] Hospitalists 7AM-7PM: Message rounding DARYL in [email or web address] or page through [employer]. 7PM-7AM: Page on-call DARYL through our answering service, . This note is dictated with the use of M*Modal. Please note that this dictation was completed with computer voice recognition software. Quite often unanticipated grammatical, syntax, homophones, and other interpretive errors are inadvertently transcribed by the computer software. Please disregard these errors. Please excuse any errors that have escaped final proofreading. Mauro Toney, LATRELL-BODY STRAIGHTENER 06/22/23 1511 Attending Addendum: I Dr Yousuf Garcia, personally performed a face to face diagnostic evaluation on this patient. I have reviewed the note authored by the advance practice provider including history, review of systems, physical examination, medical decision making and agree with the assessment and plan as written. I have seen and evaluated the patient,I have repeated the zhang portions of the physical exam and concur with the DARYL findings.I have reviewed all laboratory findings and imaging reprts/films.I agree with the plan as noted. documented in this encounter [facility] 06-22-2023 Plan of care note Problem: Safety Goal: Patient will be injury free during hospitalization Description: INTERVENTIONS: 1. Assess patient's risk for falls and implement fall prevention plan of care per policy 2. Provide and maintain a safe environment 3. Proper use of double Identifiers 4. Medication administration using the 5 rights 5. Hand hygiene 6. Specimens are labeled at the bedside 7. Instruct patient/ patient communications representative about use of safety devices 8. Include patient/ patient communications representative in decisions related to safety Outcome: Progressing Note: Evaluation of progress towards goal: Able to ambulate In and Out of the bed independently with assistive device. No injury/ trauma/ fall. Hourly rounds completed. Problem: Moderate - High Risk Fall Score Description: Alfaro Fall Score of =/> 25 or indicated by [facility] Assessment Goal: Patient should be free from fall Description: Interventions: 1. [place] to environment 2. Hourly rounds addressing the 4 P's (Pain, Positioning, Possessions, Potty) 3. Clear area of hazards (spills, clutter, electrical cords, unnecessary equipment) 4. Place equipment (bed & TV controls, call light, phone, urinal) within reach 5. Encourage patient to wear glasses and hearing aides as appropriate 6. Maintain bed in lowest position 7. Lock wheels on bed/wheelchair 8. Provide adequate lighting, including night light 9. Assess need for additional bedding, food/fluids, pain med's prior to sleep/routinely 10. Provide gripper slippers or personal non-skid footwear 11. Teach patient and patient communications representative to maintain environment for safety and engage in all aspects of fall prevention program 12. Remind patient to call for help before getting out of bed 13. Initiate bed/chair/exit alarms supportive devices as appropriate, (chair wedge, no-skid floor mat, raised edge mattress, hip protectors) 14. Locate patient bed assignment for optimal visualization 15. Evaluate and identify Safe Patient Handling Equipment needs 16. Provide supervision when out of bed or chair 17. Utilize gait belt as needed to assist with ambulation 18. Place adaptive equipment (cane, walker) within reach 19. Request patient communications representative bring adaptive equipment/mobility aids from home or obtain and provide as needed 20. Consult pharmacy regarding effects of med's affecting mobility, cognition, and alternatives 21. Obtain physician order for PT if risk factors associated with mobility are present 22. Obtain physician order for OT as appropriate 23. Utilize diversional activities 24. Educate patient and patient communications representative how to maintain a safe environment during visitation times (notify nurse prior to leaving bedside) 25. Consider appropriateness of medical or non-medical orderly 26. Set up voiding schedule as appropriate (every 2 hours) Outcome: Progressing Note: Evaluation of progress towards goal: No fall episodes during the entire shift Problem: Cardiovascular - Adult Goal: Absence of cardiac dysrhythmias or at baseline Description: INTERVENTIONS: 1. Continuous cardiac monitoring, monitor vital signs, obtain 12 lead EKG as ordered 2. Monitor for therapeutic effect/ side effects and safely 3. Administer antiarrhythmic and heart rate control medications as ordered 3. Initiate emergency measures for life threatening arrhythmias 4. Monitor labs and administer replacement/adjust therapy as ordered Outcome: Progressing Note: Evaluation of progress towards goal: EKG - NSR, had NSVT episode, 12EKG/ Mg / Lopressor IV -ordered , denies any cardiac related complaints. Problem: Respiratory - Adult Goal: Achieves optimal ventilation and oxygenation Description: Patient's goal is: INTERVENTIONS: 1. Assess for changes in respiratory status 2. Assess for changes in mentation and behavior 3. Position to facilitate oxygenation and minimize respiratory effort 4. Oxygen supplementation based on oxygen saturation or ABGs as ordered 5. Consult smoking cessation as indicated 6. Encourage broncho-pulmonary hygiene including cough, deep breathe, Incentive Spirometry, keep HOB elevated as tolerated, and encourage ambulation, as ordered 7. Assess the need for suctioning and obtain order to maintain clear airway 8. Assess and instruct patient to report SOB or any respiratory difficulty 9. Assess the need for Respiratory Therapy support if not already ordered 10. Initiate emergency measures for respiratory failure Outcome: Progressing Note: Evaluation of progress towards goal: Currently on NC at 2 LPM, breath sounds clear, denies SOB, not in respiratory distress. [facility] 06-21-2023 Emergency department Triage note Patient was seen at her PCP office and was sent to ED for evaluation of low oxygen saturation. Patient was in the high 70's low 80's in the PCP office. When patient arrived to ED SpO2 was 89% on RM air. [facility] 06-21-2023 Emergency department Note Patient was seen at her PCP office and was sent to ED for evaluation of low oxygen saturation. Patient was in the high 70's low 80's in the PCP office. When patient arrived to ED SpO2 was 89% on RM air. documented in this encounter [facility] 06-20-2023 Miscellaneous Notes Patient's appointment needs to be rescheduled at this time due to provider out of clinic. Called and left message Date: 06/22/23 Provider: Dr Avila Rescheduling Instructions:next available in clinic Patient is rescheduled 06/22/23 @3p with Kayy Hines documented in this encounter [facility] 06-20-2023 Telephone encounter Note Patient's appointment needs to be rescheduled at this time due to provider out of clinic. Called and left message Date: 06/22/23 Provider: Dr Avila Rescheduling Instructions:next available in clinic [employer] 06-20-2023 Telephone encounter Note Patient is rescheduled 06/22/23 @3p with Kayy Hines [employer] Evaluation note Diagnosis Type 2 diabetes mellitus with diabetic polyneuropathy, with long-term current use of insulin (CMS/HCC)- Primary Benign essential HTN (CMS/HCC) Stage 3a chronic kidney disease (HCC) (CMS/HCC) Type 2 diabetes mellitus with diabetic neuropathy, unspecified (CMS/HCC) Ventricular bigeminy seen on casework specialist Coronary artery disease involving bad [place] coronary artery 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 angina pectoris (CMS/HCC) Chronic diastolic HF (heart failure) ([facility]/HCC) Chronic diastolic heart failure documented in this encounter [facility]Evaluation note* Diagnosis Stage 3a chronic kidney disease (HCC) (CMS/HCC) documented in this encounter [facility]* Diagnosis Benign essential HTN (CMS/HCC) documented in this encounter [facility]* Diagnosis Onset Date Resolution Status Acute on chronic hypoxic respiratory failure acute Bigeminy acute CHF (congestive heart failure) [facility] Work Phone: Evaluation note* Diagnosis Gastroesophageal reflux disease, unspecified whether esophagitis present- Primary Need for influenza vaccination Need for prophylactic vaccination and inoculation against influenza Type 2 diabetes mellitus with hyperglycemia, with long-term current use of insulin (CMS/HCC) documented in this encounter [facility]* Diagnosis Type 2 diabetes mellitus with diabetic polyneuropathy, with long-term current use of insulin (CMS/HCC)- Primary Diabetic polyneuropathy associated with type 2 diabetes mellitus (CMS/HCC) Benign essential HTN (CMS/HCC) Stage 3a chronic kidney disease (HCC) (CMS/HCC) Mixed hyperlipidemia (CMS/HCC) Mixed hyperlipidemia Obesity, morbid (CMS/HCC) Morbid obesity B12 deficiency Intermittent palpitations Encounter for Medicare annual wellness exam SOB (shortness of breath)- Primary Shortness of breath Restless legs syndrome Restless legs syndrome (RLS) Type 2 diabetes mellitus with diabetic polyneuropathy, with long-term current use of insulin ([facility])- Primary Benign essential HTN ([facility]) Stage 3a chronic kidney disease (HCC) ([facility]) Type 2 diabetes mellitus with diabetic neuropathy, unspecified ([facility]) Ventricular bigeminy seen on casework specialist Coronary artery disease involving [place] coronary artery 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 angina pectoris ([facility]) Chronic diastolic HF (heart failure) ([facility]) Chronic diastolic heart failure Dizziness and giddiness- Primary Vertigo Dizziness and giddiness Suspected cerebrovascular accident (CVA) Exertional dyspnea Other dyspnea and respiratory abnormality Former smoker Personal history of tobacco use, presenting hazards to health Benign essential HTN ([facility]) Chronic diastolic HF (heart failure) ([facility]) Chronic diastolic heart failure Type 2 diabetes mellitus with diabetic neuropathy, with long-term current use of insulin ([facility])- Primary 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 ([facility]) Type 2 diabetes mellitus with diabetic polyneuropathy, with long-term current use of insulin ([facility]) Benign essential HTN ([facility]) Suspected cerebrovascular accident (CVA) Type 2 diabetes mellitus with diabetic neuropathy, with long-term current use of insulin ([facility])- Primary Suspected chronic obstructive pulmonary disease based on initial evaluation ([facility]) Hospital discharge follow-up- Primary Other follow-up examination Irregularly irregular pulse rhythm- Primary Type 2 diabetes mellitus with diabetic polyneuropathy, with long-term current use of insulin ([facility]) Paroxysmal atrial fibrillation ([facility]) Atrial fibrillation Type 2 diabetes mellitus with diabetic neuropathy, with long-term current use of insulin ([facility]) Benign essential HTN ([facility]) Chronic diastolic HF (heart failure) ([facility]) Chronic diastolic heart failure Type 2 diabetes mellitus with diabetic neuropathy, with long-term current use of insulin ([facility])- Primary Intermittent palpitations Coronary artery disease involving [place] coronary artery 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 angina pectoris ([facility]) Chronic diastolic HF (heart failure) ([facility]) Chronic diastolic heart failure Chronic idiopathic constipation Unspecified constipation SOB (shortness of breath)- Primary Shortness of breath Type 2 diabetes mellitus with diabetic neuropathy, with long-term current use of insulin ([facility]) Restrictive lung disease due to kyphoscoliosis SOB (shortness of breath)- Primary Shortness of breath Loculated pleural effusion Hospital discharge follow-up- Primary Other follow-up examination Chronic diastolic HF (heart failure) ([facility]) Chronic diastolic heart failure Loculated pleural effusion Acute on chronic hypoxic respiratory failure ([facility]) Type 2 diabetes mellitus with diabetic neuropathy, with long-term current use of insulin ([facility])- Primary Type 2 diabetes mellitus with hyperglycemia, with long-term current use of insulin ([facility])- Primary Insulin long-term use ([facility]) Encounter for long-term (current) use of insulin Stage 3a chronic kidney disease (HCC) ([facility]) Primary hypertension ([facility]) Unspecified essential hypertension Vitamin D deficiency Hyperlipemia, mixed [place] Mixed hyperlipidemia Encounter for dietary consultation Acquired hypothyroidism ([facility] Unspecified hypothyroidism documented in this encounter [facility] HealthcareEvaluation note* Diagnosis Type 2 diabetes mellitus with diabetic polyneuropathy, with long-term current use of insulin ([facility])- Primary Diabetic polyneuropathy associated with type 2 diabetes mellitus ([facility]) Benign essential HTN ([facility]) Stage 3a chronic kidney disease (HCC) ([facility]) Mixed hyperlipidemia ([facility]) Mixed hyperlipidemia Obesity, morbid ([facility]) Morbid obesity B12 deficiency Intermittent palpitations Encounter for Medicare annual wellness exam SOB (shortness of breath)- Primary Shortness of breath Restless legs syndrome Restless legs syndrome (RLS) Type 2 diabetes mellitus with diabetic polyneuropathy, with long-term current use of insulin ([facility])- Primary Benign essential HTN ([facility]) Stage 3a chronic kidney disease (HCC) ([facility]) Type 2 diabetes mellitus with diabetic neuropathy, unspecified ([facility]) Ventricular bigeminy seen on casework specialist Coronary artery disease involving [place] coronary artery 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 angina pectoris ([facility]) Chronic diastolic HF (heart failure) ([facility]) Chronic diastolic heart failure Dizziness and giddiness- Primary Vertigo Dizziness and giddiness Suspected cerebrovascular accident (CVA) Exertional dyspnea Other dyspnea and respiratory abnormality Former smoker Personal history of tobacco use, presenting hazards to health Benign essential HTN ([facility]) Chronic diastolic HF (heart failure) ([facility]) Chronic diastolic heart failure Type 2 diabetes mellitus with diabetic neuropathy, with long-term current use of insulin ([facility])- Primary 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 ([facility]) Type 2 diabetes mellitus with diabetic polyneuropathy, with long-term current use of insulin ([facility]) Benign essential HTN ([facility]) Suspected cerebrovascular accident (CVA) Type 2 diabetes mellitus with diabetic neuropathy, with long-term current use of insulin ([facility])- Primary Suspected chronic obstructive pulmonary disease based on initial evaluation [place] Hospital discharge follow-up- Primary Other follow-up examination Irregularly irregular pulse rhythm- Primary Type 2 diabetes mellitus with diabetic polyneuropathy, with long-term current use of insulin ([facility]) Paroxysmal atrial fibrillation ([facility]) Atrial fibrillation Type 2 diabetes mellitus with diabetic neuropathy, with long-term current use of insulin [place] Benign essential HTN ([facility]) Chronic diastolic HF (heart failure) ([facility] Chronic diastolic heart failure Type 2 diabetes mellitus with diabetic neuropathy, with long-term current use of insulin ([facility])- Primary Intermittent palpitations Coronary artery disease involving [place] coronary artery 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 angina pectoris ([facility]) Chronic diastolic HF (heart failure) ([facility]) Chronic diastolic heart failure Chronic idiopathic constipation Unspecified constipation SOB (shortness of breath)- Primary Shortness of breath Type 2 diabetes mellitus with diabetic neuropathy, with long-term current use of insulin ([facility]) Restrictive lung disease due to kyphoscoliosis SOB (shortness of breath)- Primary Shortness of breath Loculated pleural effusion Hospital discharge follow-up- Primary Other follow-up examination Chronic diastolic HF (heart failure) ([facility] Chronic diastolic heart failure Loculated pleural effusion Acute on chronic hypoxic respiratory failure ([facility]) Type 2 diabetes mellitus with diabetic neuropathy, with long-term current use of insulin ([facility])- Primary Gastroesophageal reflux disease, unspecified whether esophagitis present documented in this encounter [facility] HealthcareEvaluation note* Diagnosis Type 2 diabetes mellitus with diabetic polyneuropathy, with long-term current use of insulin ([facility])- Primary Diabetic polyneuropathy associated with type 2 diabetes mellitus ([facility]) Benign essential HTN ([facility]) Stage 3a chronic kidney disease (HCC) ([facility]) Mixed hyperlipidemia ([facility]) Mixed hyperlipidemia Obesity, morbid ([facility]) Morbid obesity B12 deficiency Intermittent palpitations Encounter for Medicare annual wellness exam SOB (shortness of breath)- Primary Shortness of breath Restless legs syndrome Restless legs syndrome (RLS) Type 2 diabetes mellitus with diabetic polyneuropathy, with long-term current use of insulin ([facility])- Primary Benign essential HTN ([facility]) Stage 3a chronic kidney disease (HCC) ([facility]) Type 2 diabetes mellitus with diabetic neuropathy, unspecified ([facility] Ventricular bigeminy seen on casework specialist Coronary artery disease involving [place] coronary artery 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 angina pectoris ([facility]) Chronic diastolic HF (heart failure) ([facility]) Chronic diastolic heart failure Dizziness and giddiness- Primary Vertigo Dizziness and giddiness Suspected cerebrovascular accident (CVA) Exertional dyspnea Other dyspnea and respiratory abnormality Former smoker Personal history of tobacco use, presenting hazards to health Benign essential HTN ([facility]) Chronic diastolic HF (heart failure) ([facility] Chronic diastolic heart failure Type 2 diabetes mellitus with diabetic neuropathy, with long-term current use of insulin ([facility] Primary 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 ([facility] Type 2 diabetes mellitus with diabetic polyneuropathy, with long-term current use of insulin ([facility]) Benign essential HTN ([facility]) Suspected cerebrovascular accident (CVA) Type 2 diabetes mellitus with diabetic neuropathy, with long-term current use of insulin ([facility] Primary Suspected chronic obstructive pulmonary disease based on initial evaluation ([facility] Hospital discharge follow-up- Primary Other follow-up examination Irregularly irregular pulse rhythm- Primary Type 2 diabetes mellitus with diabetic polyneuropathy, with long-term current use of insulin ([facility] Paroxysmal atrial fibrillation ([facility]) Atrial fibrillation Type 2 diabetes mellitus with diabetic neuropathy, with long-term current use of insulin ([facility]) Benign essential HTN ([facility]) Chronic diastolic HF (heart failure) ([facility] Chronic diastolic heart failure Type 2 diabetes mellitus with diabetic neuropathy, with long-term current use of insulin ([facility])- Primary Intermittent palpitations Coronary artery disease involving [place] coronary artery 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 angina pectoris ([facility]) Chronic diastolic HF (heart failure) ([facility]) Chronic diastolic heart failure Chronic idiopathic constipation Unspecified constipation SOB (shortness of breath)- Primary Shortness of breath Type 2 diabetes mellitus with diabetic neuropathy, with long-term current use of insulin ([facility]) Restrictive lung disease due to kyphoscoliosis SOB (shortness of breath)- Primary Shortness of breath Loculated pleural effusion Hospital discharge follow-up- Primary Other follow-up examination Chronic diastolic HF (heart failure) ([facility]/HCC) Chronic diastolic heart failure Loculated pleural effusion Acute on chronic hypoxic respiratory failure ([facility]/HCC) Type 2 diabetes mellitus with diabetic neuropathy, with long-term current use of insulin ([facility]/HCC)- Primary Type 2 diabetes mellitus with diabetic polyneuropathy, with long-term current use of insulin ([facility])- Primary documented in this encounter [facility] HealthcareEvaluation note* Diagnosis Type 2 diabetes mellitus with diabetic polyneuropathy, with long-term current use of insulin ([facility])- Primary Diabetic polyneuropathy associated with type 2 diabetes mellitus ([facility]) Benign essential HTN ([facility]/HCC) Stage 3a chronic kidney disease (HCC) ([facility]) Mixed hyperlipidemia ([facility]) Mixed hyperlipidemia Obesity, morbid ([facility]) Morbid obesity B12 deficiency Intermittent palpitations Encounter for Medicare annual wellness exam SOB (shortness of breath)- Primary Shortness of breath Restless legs syndrome Restless legs syndrome (RLS) Type 2 diabetes mellitus with diabetic polyneuropathy, with long-term current use of insulin ([facility])- Primary Benign essential HTN ([facility]/HCC) Stage 3a chronic kidney disease (HCC) ([facility]) Type 2 diabetes mellitus with diabetic neuropathy, unspecified ([facility]) Ventricular bigeminy seen on casework specialist Coronary artery disease involving [place] coronary artery 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 angina pectoris ([facility]) Chronic diastolic HF (heart failure) ([facility]) Chronic diastolic heart failure Dizziness and giddiness- Primary Vertigo Dizziness and giddiness Suspected cerebrovascular accident (CVA) Exertional dyspnea Other dyspnea and respiratory abnormality Former smoker Personal history of tobacco use, presenting hazards to health Benign essential HTN ([facility]/HCC) Chronic diastolic HF (heart failure) ([facility]/HCC) Chronic diastolic heart failure Type 2 diabetes mellitus with diabetic neuropathy, with long-term current use of insulin ([facility])- Primary 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 ([facility]) Type 2 diabetes mellitus with diabetic polyneuropathy, with long-term current use of insulin ([facility]/HCC) Benign essential HTN ([facility]/HCC) Suspected cerebrovascular accident (CVA) Type 2 diabetes mellitus with diabetic neuropathy, with long-term current use of insulin ([facility])- Primary Suspected chronic obstructive pulmonary disease based on initial evaluation ([facility]) Hospital discharge follow-up- Primary Other follow-up examination Irregularly irregular pulse rhythm- Primary Type 2 diabetes mellitus with diabetic polyneuropathy, with long-term current use of insulin ([facility]) Paroxysmal atrial fibrillation ([facility]) Atrial fibrillation Type 2 diabetes mellitus with diabetic neuropathy, with long-term current use of insulin ([facility]) Benign essential HTN ([facility]) Chronic diastolic HF (heart failure) ([facility]) Chronic diastolic heart failure Type 2 diabetes mellitus with diabetic neuropathy, with long-term current use of insulin ([facility])- Primary Intermittent palpitations Coronary artery disease involving [place] coronary artery 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 angina pectoris ([facility]) Chronic diastolic HF (heart failure) ([facility]) Chronic diastolic heart failure Chronic idiopathic constipation Unspecified constipation SOB (shortness of breath)- Primary Shortness of breath Type 2 diabetes mellitus with diabetic neuropathy, with long-term current use of insulin ([facility]) Restrictive lung disease due to kyphoscoliosis SOB (shortness of breath)- Primary Shortness of breath Loculated pleural effusion Hospital discharge follow-up- Primary Other follow-up examination Chronic diastolic HF (heart failure) ([facility]) Chronic diastolic heart failure Loculated pleural effusion Acute on chronic hypoxic respiratory failure ([facility]) Type 2 diabetes mellitus with diabetic neuropathy, with long-term current use of insulin ([facility])- Primary Restless legs syndrome Restless legs syndrome (RLS) documented in this encounter [facility] HealthcareEvaluation note* Diagnosis Type 2 diabetes mellitus with diabetic polyneuropathy, with long-term current use of insulin ([facility])- Primary Diabetic polyneuropathy associated with type 2 diabetes mellitus ([facility]) Benign essential HTN ([facility]) Stage 3a chronic kidney disease (HCC) ([facility]) Mixed hyperlipidemia ([facility]) Mixed hyperlipidemia Obesity, morbid ([facility]) Morbid obesity B12 deficiency Intermittent palpitations Encounter for Medicare annual wellness exam SOB (shortness of breath)- Primary Shortness of breath Restless legs syndrome Restless legs syndrome (RLS) Type 2 diabetes mellitus with diabetic polyneuropathy, with long-term current use of insulin ([facility])- Primary Benign essential HTN ([facility]/HCC) Stage 3a chronic kidney disease (HCC) ([facility] Type 2 diabetes mellitus with diabetic neuropathy, unspecified ([facility]) Ventricular bigeminy seen on casework specialist Coronary artery disease involving [place] coronary artery 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 angina pectoris [place] Chronic diastolic HF (heart failure) ([facility]) Chronic diastolic heart failure Dizziness and giddiness- Primary Vertigo Dizziness and giddiness Suspected cerebrovascular accident (CVA) Exertional dyspnea Other dyspnea and respiratory abnormality Former smoker Personal history of tobacco use, presenting hazards to health Benign essential HTN ([facility]) Chronic diastolic HF (heart failure) ([facility] Chronic diastolic heart failure Type 2 diabetes mellitus with diabetic neuropathy, with long-term current use of insulin ([facility] Primary 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 ([facility] Type 2 diabetes mellitus with diabetic polyneuropathy, with long-term current use of insulin ([facility] Benign essential HTN ([facility] Suspected cerebrovascular accident (CVA) Type 2 diabetes mellitus with diabetic neuropathy, with long-term current use of insulin ([facility] Primary Suspected chronic obstructive pulmonary disease based on initial evaluation ([facility] Hospital discharge follow-up- Primary Other follow-up examination Irregularly irregular pulse rhythm- Primary Type 2 diabetes mellitus with diabetic polyneuropathy, with long-term current use of insulin ([facility] Paroxysmal atrial fibrillation ([facility] Atrial fibrillation Type 2 diabetes mellitus with diabetic neuropathy, with long-term current use of insulin ([facility] Benign essential HTN ([facility]) Chronic diastolic HF (heart failure) ([facility] Chronic diastolic heart failure Type 2 diabetes mellitus with diabetic neuropathy, with long-term current use of insulin ([facility] Primary Intermittent palpitations Coronary artery disease involving [place] coronary artery 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 angina pectoris [place]) Chronic diastolic HF [facility] failure) [facility] [facility] [place] Chronic diastolic heart failure Chronic idiopathic constipation Unspecified constipation SOB (shortness of breath)- Primary Shortness of breath Type 2 diabetes mellitus with diabetic neuropathy, with long-term current use of insulin [place] [place] Restrictive lung disease due to kyphoscoliosis SOB (shortness of breath)- Primary Shortness of breath Loculated pleural effusion Hospital discharge follow-up- Primary Other follow-up examination Chronic diastolic HF (heart failure) [place] [place] Chronic diastolic heart failure Loculated pleural effusion Acute on chronic hypoxic respiratory failure ([facility]/HCC) Type 2 diabetes mellitus with diabetic neuropathy, with long-term current use of insulin ([facility])- Primary Stage 3a chronic kidney disease (HCC) ([facility]) documented in this encounter [facility] HealthcareEvaluation [facility]* Diagnosis Type 2 diabetes mellitus with diabetic neuropathy, with long-term current use of insulin ([facility]/HCC)- Primary documented in this encounter [facility] HealthcareEvaluation note* Diagnosis Age-related osteoporosis without current pathological fracture- Primary 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, estrogen receptor positive ([facility]) Metastatic cancer to axillary lymph nodes ([facility]) High risk medication use Personal history of malignant neoplasm of breast Aromatase inhibitor use Osteoporosis due to aromatase inhibitor documented [facility]* Diagnosis Type 2 diabetes mellitus with diabetic polyneuropathy, with long-term current use of insulin ([facility])- Primary Diabetic polyneuropathy associated with type 2 diabetes mellitus ([facility]) Benign essential HTN ([facility]) Stage 3a chronic kidney disease (HCC) ([facility]) Mixed hyperlipidemia ([facility]) Mixed hyperlipidemia Obesity, morbid ([facility]) Morbid obesity B12 deficiency Intermittent palpitations Encounter for Medicare annual wellness exam SOB (shortness of breath)- Primary Shortness of breath Restless legs syndrome Restless legs syndrome (RLS) Type 2 diabetes mellitus with diabetic polyneuropathy, with long-term current use of insulin ([facility])- Primary Benign essential HTN ([facility]/HCC) Stage 3a chronic kidney disease (HCC) ([facility]) Type 2 diabetes mellitus with diabetic neuropathy, unspecified ([facility]) Ventricular bigeminy seen on casework specialist Coronary artery disease involving bad [place] coronary artery 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 angina pectoris ([facility]) Chronic diastolic HF (heart failure) ([facility]) Chronic diastolic heart failure Dizziness and giddiness- Primary Vertigo Dizziness and giddiness Suspected cerebrovascular accident (CVA) Exertional dyspnea Other dyspnea and respiratory abnormality Former smoker Personal history of tobacco use, presenting hazards to health Benign essential HTN ([facility]/HCC) Chronic diastolic HF (heart failure) ([facility]) Chronic diastolic heart failure Type 2 diabetes mellitus with diabetic neuropathy, with long-term current use of insulin ([facility])- Primary 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 ([facility]) Type 2 diabetes mellitus with diabetic polyneuropathy, with long-term current use of insulin (CMS/HCC) Benign essential HTN (CMS/HCC) Suspected cerebrovascular accident (CVA) Type 2 diabetes mellitus with diabetic neuropathy, with long-term current use of insulin (CMS/HCC)- Primary Suspected chronic obstructive pulmonary disease based on initial evaluation ([facility]) Hospital discharge follow-up- Primary Other follow-up examination Irregularly irregular pulse rhythm- Primary Type 2 diabetes mellitus with diabetic polyneuropathy, with long-term current use of insulin (CMS/HCC) Paroxysmal atrial fibrillation (CMS/HCC) Atrial fibrillation Type 2 diabetes mellitus with diabetic neuropathy, with long-term current use of insulin (CMS/HCC) Benign essential HTN (CMS/HCC) Chronic diastolic HF (heart failure) (CMS/HCC) Chronic diastolic heart failure Type 2 diabetes mellitus with diabetic neuropathy, with long-term current use of insulin (CMS/HCC)- Primary Intermittent palpitations Coronary artery disease involving bad [place] coronary artery 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 angina pectoris (CMS/HCC) Chronic diastolic HF (heart failure) ([facility]/HCC) Chronic diastolic heart failure Chronic idiopathic constipation Unspecified constipation SOB (shortness of breath)- Primary Shortness of breath Type 2 diabetes mellitus with diabetic neuropathy, with long-term current use of insulin (CMS/HCC) Restrictive lung disease due to kyphoscoliosis SOB (shortness of breath)- Primary Shortness of breath Loculated pleural effusion Hospital discharge follow-up- Primary Other follow-up examination Chronic diastolic HF (heart failure) (CMS/HCC) Chronic diastolic heart failure Loculated pleural effusion Acute on chronic hypoxic respiratory failure (CMS/HCC) Type 2 diabetes mellitus with diabetic neuropathy, with long-term current use of insulin (CMS/HCC)- Primary Coronary artery disease involving bad [place] coronary artery 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 angina pectoris (CMS/HCC)- Primary Type 2 diabetes mellitus with diabetic neuropathy, with long-term current use of insulin (CMS/HCC) Benign essential HTN (CMS/HCC) Stage 3a chronic kidney disease (HCC) (CMS/HCC) documented in this encounter [facility]Evaluation note* Diagnosis 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)- Primary 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, estrogen receptor positive (CMS-HCC) documented [facility]* Diagnosis Port-A-Cath in place- Primary 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) documented in this encounter [facility]* Diagnosis 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, estrogen receptor positive ([facility])- Primary Metastatic cancer to axillary lymph nodes ([facility]) Normocytic anemia Unspecified anemia documented in this encounter [facility]* Diagnosis Type 2 diabetes mellitus with diabetic polyneuropathy, with long-term current use of insulin ([facility])- Primary Diabetic polyneuropathy associated with type 2 diabetes mellitus ([facility]) Benign essential HTN ([facility]/HCC) Stage 3a chronic kidney disease (HCC) ([facility]) Mixed hyperlipidemia ([facility]) Mixed hyperlipidemia Obesity, morbid ([facility]) Morbid obesity B12 deficiency Intermittent palpitations Encounter for Medicare annual wellness exam SOB (shortness of breath)- Primary Shortness of breath Restless legs syndrome Restless legs syndrome (RLS) Type 2 diabetes mellitus with diabetic polyneuropathy, with long-term current use of insulin ([facility])- Primary Benign essential HTN ([facility]/HCC) Stage 3a chronic kidney disease (HCC) ([facility]) Type 2 diabetes mellitus with diabetic neuropathy, unspecified ([facility]) Ventricular bigeminy seen on casework specialist Coronary artery disease involving [place] coronary artery 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 angina pectoris ([facility]) Chronic diastolic HF (heart failure) ([facility]) Chronic diastolic heart failure Dizziness and giddiness- Primary Vertigo Dizziness and giddiness Suspected cerebrovascular accident (CVA) Exertional dyspnea Other dyspnea and respiratory abnormality Former smoker Personal history of tobacco use, presenting hazards to health Benign essential HTN ([facility]) Chronic diastolic HF (heart failure) ([facility]) Chronic diastolic heart failure Type 2 diabetes mellitus with diabetic neuropathy, with long-term current use of insulin ([facility])- Primary 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 ([facility]) Type 2 diabetes mellitus with diabetic polyneuropathy, with long-term current use of insulin ([facility]) Benign essential HTN ([facility]) Suspected cerebrovascular accident (CVA) Type 2 diabetes mellitus with diabetic neuropathy, with long-term current use of insulin ([facility])- Primary Suspected chronic obstructive pulmonary disease based on initial evaluation ([facility]) Hospital discharge follow-up- Primary Other follow-up examination Irregularly irregular pulse rhythm- Primary Type 2 diabetes mellitus with diabetic polyneuropathy, with long-term current use of insulin ([facility]) Paroxysmal atrial fibrillation ([facility]/HCC) Atrial fibrillation Type 2 diabetes mellitus with diabetic neuropathy, with long-term current use of insulin ([facility]) Benign essential HTN ([facility]/HCC) Chronic diastolic HF (heart failure) ([facility]) Chronic diastolic heart failure Type 2 diabetes mellitus with diabetic neuropathy, with long-term current use of insulin ([facility])- Primary Intermittent palpitations Coronary artery disease involving [place] coronary artery 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 angina pectoris ([facility]) Chronic diastolic HF (heart failure) ([facility]) Chronic diastolic heart failure Chronic idiopathic constipation Unspecified constipation SOB (shortness of breath)- Primary Shortness of breath Type 2 diabetes mellitus with diabetic neuropathy, with long-term current use of insulin ([facility]) Restrictive lung disease due to kyphoscoliosis SOB (shortness of breath)- Primary Shortness of breath Loculated pleural effusion Hospital discharge follow-up- Primary Other follow-up examination Chronic diastolic HF (heart failure) ([facility]) Chronic diastolic heart failure Loculated pleural effusion Acute on chronic hypoxic respiratory failure ([facility]) Type 2 diabetes mellitus with diabetic neuropathy, with long-term current use of insulin ([facility])- Primary Coronary artery disease involving [place] coronary artery 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 angina pectoris ([facility])- Primary Type 2 diabetes mellitus with diabetic neuropathy, with long-term current use of insulin ([facility]) Benign essential HTN ([facility]) Stage 3a chronic kidney disease (HCC) ([facility]) Gastroesophageal reflux disease, unspecified whether esophagitis present- Primary documented in this encounter [facility]Evaluation note* Diagnosis Type 2 diabetes mellitus with diabetic polyneuropathy, with long-term current use of insulin ([facility])- Primary Diabetic polyneuropathy associated with type 2 diabetes mellitus ([facility]) Benign essential HTN ([facility]/HCC) Stage 3a chronic kidney disease (HCC) ([facility]) Mixed hyperlipidemia ([facility]) Mixed hyperlipidemia Obesity, morbid ([facility]) Morbid obesity B12 deficiency Intermittent palpitations Encounter for Medicare annual wellness exam SOB (shortness of breath)- Primary Shortness of breath Restless legs syndrome Restless legs syndrome (RLS) Type 2 diabetes mellitus with diabetic polyneuropathy, with long-term current use of insulin ([facility])- Primary Benign essential HTN ([facility]/HCC) Stage 3a chronic kidney disease (HCC) ([facility]) Type 2 diabetes mellitus with diabetic neuropathy, unspecified ([facility]) Ventricular bigeminy seen on casework specialist Coronary artery disease involving [place] coronary artery 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 angina pectoris [place] [place] Chronic diastolic HF (heart failure) ([facility]) Chronic diastolic heart failure Dizziness and giddiness- Primary Vertigo Dizziness and giddiness Suspected cerebrovascular accident (CVA) Exertional dyspnea Other dyspnea and respiratory abnormality Former smoker Personal history of tobacco use, presenting hazards to health Benign essential HTN ([facility]) Chronic diastolic HF (heart failure) [place] [place] Chronic diastolic heart failure Type 2 diabetes mellitus with diabetic neuropathy, with long-term current use of insulin [place] [place] Primary 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 [place] [place] Type 2 diabetes mellitus with diabetic polyneuropathy, with long-term current use of insulin [place] [place] Benign essential HTN [place] [place] Suspected cerebrovascular accident (CVA) Type 2 diabetes mellitus with diabetic neuropathy, with long-term current use of insulin [place] [place] Primary Suspected chronic obstructive pulmonary disease based on initial evaluation [place] [place] Hospital discharge follow-up- Primary Other follow-up examination Irregularly irregular pulse rhythm- Primary Type 2 diabetes mellitus with diabetic polyneuropathy, with long-term current use of insulin [place] [place] Paroxysmal atrial fibrillation [place] [place] Atrial fibrillation Type 2 diabetes mellitus with diabetic neuropathy, with long-term current use of insulin [place] [place] Benign essential HTN [place] [place] Chronic diastolic HF (heart failure) [place] [place] Chronic diastolic heart failure Type 2 diabetes mellitus with diabetic neuropathy, with long-term current use of insulin [place] [place] Primary Intermittent palpitations Coronary artery disease involving [place] coronary artery 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 angina pectoris [place] [place]) Chronic diastolic HF (heart failure) [place] [place] Chronic diastolic heart failure Chronic idiopathic constipation Unspecified constipation SOB (shortness of breath)- Primary Shortness of breath Type 2 diabetes mellitus with diabetic neuropathy, with long-term current use of insulin [place] [place] Restrictive lung disease due to kyphoscoliosis SOB (shortness of breath)- Primary Shortness of breath Loculated pleural effusion Hospital discharge follow-up- Primary Other follow-up examination Chronic diastolic HF (heart failure) [place] [place] Chronic diastolic heart failure Loculated pleural effusion Acute on chronic hypoxic respiratory failure (CMS/HCC) Type 2 diabetes mellitus with diabetic neuropathy, with long-term current use of insulin (CMS/HCC)- Primary Coronary artery disease involving [place] coronary artery 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 angina pectoris (CMS/HCC)- Primary Type 2 diabetes mellitus with diabetic neuropathy, with long-term current use of insulin (CMS/HCC) Benign essential HTN (CMS/HCC) Stage 3a chronic kidney disease (HCC) (CMS/HCC) Type 2 diabetes mellitus with diabetic polyneuropathy, with long-term current use of insulin (CMS/HCC)- Primary documented in this encounter [facility] HealthcareEvaluation note* Diagnosis 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, estrogen receptor positive (CMS-HCC) 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) Diabetic peripheral neuropathy (CMS-HCC)- Primary Type II or unspecified type diabetes mellitus with neurological manifestations, not stated as uncontrolled Paresthesias in right hand Disturbance of skin sensation Cervical dystonia Spasmodic torticollis 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, estrogen receptor positive (CMS-HCC) 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) documented in this encounter [facility]* Diagnosis Hypoxia- Primary Hypoxemia Hypoxia Hypoxemia Pleural effusion Unspecified pleural effusion Chronic obstructive pulmonary disease, unspecified COPD type (CMS-HCC) Stage 3a chronic kidney disease (CMS-HCC) Benign essential HTN Diabetes mellitus (CMS-HCC) Type II or unspecified type diabetes mellitus without mention of complication, not stated as uncontrolled Mixed hyperlipidemia documented in this encounter [facility]* Diagnosis 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, estrogen receptor positive (CMS-HCC) 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) 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, estrogen receptor positive (CMS-HCC)- Primary 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 Acquired absence of breast and nipple History of cancer of left breast Port-A-Cath in place Encounter for screening mammogram for breast cancer 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, estrogen receptor positive (CMS-HCC) 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) documented in this encounter [facility]* Diagnosis 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)- Primary documented in this encounter [facility]* Diagnosis Diabetic peripheral neuropathy (CMS-HCC)- Primary Type II or unspecified type diabetes mellitus with neurological manifestations, not stated as uncontrolled Vitamin B12 deficiency Other B-complex deficiencies Vitamin B6 deficiency Ulnar neuropathy at elbow of right upper extremity Torticollis Torticollis, unspecified Ulnar neuropathy at elbow of right upper extremity Torticollis Torticollis, unspecified documented in this encounter [facility]* Diagnosis 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 Myofascial pain Unspecified myalgia and myositis Essential tremor documented in this encounter [facility]* Diagnosis 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)- Primary documented in this encounter [facility]* Diagnosis 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, estrogen receptor positive (CMS-HCC)- Primary Pleural effusion on right Unspecified pleural effusion documented [facility] this [facility]* Diagnosis 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, estrogen receptor positive (CMS-HCC)- Primary 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) Pleural effusion Unspecified pleural effusion documented in this encounter [facility]* Diagnosis 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, estrogen receptor positive (CMS-HCC)- Primary Pleural effusion on right Unspecified pleural effusion 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) documented in this encounter [facility]* Diagnosis Peripheral polyneuropathy- Primary Unsteady gait Abnormality of gait Vitamin B12 deficiency Other B-complex deficiencies Vitamin B6 deficiency Paresthesias in right hand Disturbance of skin sensation Carpal tunnel syndrome of right wrist Ulnar neuropathy of right upper extremity documented in this encounter [facility]* Diagnosis Diabetic peripheral neuropathy ([facility]) Type II or unspecified type diabetes mellitus with neurological manifestations, not stated as uncontrolled Paresthesias in right hand Disturbance of skin sensation documented in this encounter [facility]* Diagnosis Type 2 diabetes mellitus with diabetic polyneuropathy, with long-term current use of insulin (CMS/HCC)- Primary Diabetic polyneuropathy associated with type 2 diabetes mellitus (CMS/HCC) Benign essential HTN (CMS/HCC) Stage 3a chronic kidney disease (HCC) (CMS/HCC) Mixed hyperlipidemia (CMS/HCC) Mixed hyperlipidemia Obesity, morbid (CMS/HCC) Morbid obesity B12 deficiency Intermittent palpitations Encounter for Medicare annual wellness exam SOB (shortness of breath)- Primary Shortness of breath Restless legs syndrome Restless legs syndrome (RLS) Type 2 diabetes mellitus with diabetic polyneuropathy, with long-term current use of insulin ([facility])- Primary Benign essential HTN ([facility]) Stage 3a chronic kidney disease (HCC) [place] Type 2 diabetes mellitus with diabetic neuropathy, unspecified ([facility]) Ventricular bigeminy seen on casework specialist Coronary artery disease involving [place] coronary artery 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 angina pectoris ([facility]) Chronic diastolic HF (heart failure) ([facility] Chronic diastolic heart failure Dizziness and giddiness- Primary Vertigo Dizziness and giddiness Suspected cerebrovascular accident (CVA) Exertional dyspnea Other dyspnea and respiratory abnormality Former smoker Personal history of tobacco use, presenting hazards to health Benign essential HTN ([facility]) Chronic diastolic HF (heart failure) [place] Chronic diastolic heart failure Type 2 diabetes mellitus with diabetic neuropathy, with long-term current use of insulin ([facility] [place] Primary 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 ([facility] Type 2 diabetes mellitus with diabetic polyneuropathy, with long-term current use of insulin [place] [place] Benign essential HTN ([facility] Suspected cerebrovascular accident (CVA) Type 2 diabetes mellitus with diabetic neuropathy, with long-term current use of insulin ([facility])- Primary Suspected chronic obstructive pulmonary disease based on initial evaluation ([facility] Hospital discharge follow-up- Primary Other follow-up examination Irregularly irregular pulse rhythm- Primary Type 2 diabetes mellitus with diabetic polyneuropathy, with long-term current use of insulin ([facility] Paroxysmal [place] Atrial fibrillation Type 2 diabetes mellitus with diabetic neuropathy, with long-term current use of insulin [place] Benign essential HTN ([facility]) Chronic diastolic HF (heart failure) [place] Chronic diastolic heart failure Type 2 diabetes mellitus with diabetic neuropathy, with long-term current use of insulin [place] Primary Intermittent palpitations Coronary artery disease involving bad [place] coronary artery 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 angina pectoris ([facility]) Chronic diastolic HF (heart failure) ([facility]) Chronic diastolic heart failure Chronic idiopathic constipation Unspecified constipation SOB (shortness of breath)- Primary Shortness of breath Type 2 diabetes mellitus with diabetic neuropathy, with long-term current use of insulin ([facility]/HCC) Restrictive lung disease due to kyphoscoliosis SOB (shortness of breath)- Primary Shortness of breath Loculated pleural effusion Hospital discharge follow-up- Primary Other follow-up examination Chronic diastolic HF (heart failure) ([facility]/HCC) Chronic diastolic heart failure Loculated pleural effusion Acute on chronic hypoxic respiratory failure ([facility]) Type 2 diabetes mellitus with diabetic neuropathy, with long-term current use of insulin ([facility])- Primary Coronary artery disease involving bad [place] coronary artery 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 angina pectoris ([facility]/HCC)- Primary Type 2 diabetes mellitus with diabetic neuropathy, with long-term current use of insulin ([facility]) Benign essential HTN ([facility]/HCC) Stage 3a chronic kidney disease (HCC) ([facility]) Type 2 diabetes mellitus with hyperglycemia, with long-term current use of insulin ([facility]) documented in this encounter [facility] HealthcareEvaluation note* Diagnosis Peripheral polyneuropathy- Primary documented in [facility]* Diagnosis Type 2 diabetes mellitus with diabetic polyneuropathy, with long-term current use of insulin ([facility])- Primary Diabetic polyneuropathy associated with type 2 diabetes mellitus ([facility]) Benign essential HTN ([facility]/HCC) Stage 3a chronic kidney disease (HCC) ([facility]) Mixed hyperlipidemia ([facility]) Mixed hyperlipidemia Obesity, morbid ([facility]) Morbid obesity B12 deficiency Intermittent palpitations Encounter for Medicare annual wellness exam SOB (shortness of breath)- Primary Shortness of breath Restless legs syndrome Restless legs syndrome (RLS) Type 2 diabetes mellitus with diabetic polyneuropathy, with long-term current use of insulin ([facility])- Primary Benign essential HTN ([facility]/HCC) Stage 3a chronic kidney disease (HCC) ([facility]) Type 2 diabetes mellitus with diabetic neuropathy, unspecified ([facility]) Ventricular bigeminy seen on casework specialist Coronary artery disease involving [place] coronary artery 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 angina pectoris ([facility]/HCC) Chronic diastolic HF (heart failure) ([facility]/HCC) Chronic diastolic heart failure Dizziness and giddiness- Primary Vertigo Dizziness and giddiness Suspected cerebrovascular accident (CVA) Exertional dyspnea Other dyspnea and respiratory abnormality Former smoker Personal history of tobacco use, presenting hazards to health Benign essential HTN (CMS/HCC) Chronic diastolic HF (heart failure) ([facility]) Chronic diastolic heart failure Type 2 diabetes mellitus with diabetic neuropathy, with long-term current use of insulin ([facility])- Primary 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 ([facility]) Type 2 diabetes mellitus with diabetic polyneuropathy, with long-term current use of insulin ([facility]) Benign essential HTN ([facility]) Suspected cerebrovascular accident (CVA) Type 2 diabetes mellitus with diabetic neuropathy, with long-term current use of insulin ([facility])- Primary Suspected chronic obstructive pulmonary disease based on initial evaluation ([facility]) Hospital discharge follow-up- Primary Other follow-up examination Irregularly irregular pulse rhythm- Primary Type 2 diabetes mellitus with diabetic polyneuropathy, with long-term current use of insulin ([facility]) Paroxysmal atrial fibrillation [place] Atrial fibrillation Type 2 diabetes mellitus with diabetic neuropathy, with long-term current use of insulin ([facility]) Benign essential HTN ([facility]) Chronic diastolic HF (heart failure) ([facility]) Chronic diastolic heart failure Type 2 diabetes mellitus with diabetic neuropathy, with long-term current use of insulin ([facility])- Primary Intermittent palpitations Coronary artery disease involving [place] coronary artery 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 angina pectoris ([facility]) Chronic diastolic HF (heart failure) ([facility]) Chronic diastolic heart failure Chronic idiopathic constipation Unspecified constipation SOB (shortness of breath)- Primary Shortness of breath Type 2 diabetes mellitus with diabetic neuropathy, with long-term current use of insulin ([facility]) Restrictive lung disease due to kyphoscoliosis SOB (shortness of breath)- Primary Shortness of breath Loculated pleural effusion Hospital discharge follow-up- Primary Other follow-up examination Chronic diastolic HF (heart failure) ([facility]) Chronic diastolic heart failure Loculated pleural effusion Acute on chronic hypoxic respiratory failure ([facility]) Type 2 diabetes mellitus with diabetic neuropathy, with long-term current use of insulin ([facility])- Primary Coronary artery disease involving [place] coronary artery 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 angina pectoris ([facility])- Primary Type 2 diabetes mellitus with diabetic neuropathy, with long-term current use of insulin ([facility]) Benign essential HTN ([facility]) Stage 3a chronic kidney disease (HCC) ([facility]) Urinary tract infection without hematuria, site unspecified- Primary documented in this encounter [facility]Evaluation note* Diagnosis Age-related osteoporosis without current pathological fracture documented in this encounter [facility]* Diagnosis Peripheral polyneuropathy- Primary 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 documented in this encounter [facility]* Diagnosis Type 2 diabetes mellitus with diabetic polyneuropathy, with long-term current use of insulin ([facility])- Primary Diabetic polyneuropathy associated with type 2 diabetes mellitus ([facility]) Benign essential HTN ([facility]) Stage 3a chronic kidney disease (HCC) ([facility]) Mixed hyperlipidemia ([facility]) Mixed hyperlipidemia Obesity, morbid ([facility]) Morbid obesity B12 deficiency Intermittent palpitations Encounter for Medicare annual wellness exam SOB (shortness of breath)- Primary Shortness of breath Restless legs syndrome Restless legs syndrome (RLS) Type 2 diabetes mellitus with diabetic polyneuropathy, with long-term current use of insulin ([facility])- Primary Benign essential HTN ([facility]) Stage 3a chronic kidney disease (HCC) ([facility]) Type 2 diabetes mellitus with diabetic neuropathy, unspecified ([facility]) Ventricular bigeminy seen on casework specialist Coronary artery disease involving [place] coronary artery 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 angina pectoris ([facility]) Chronic diastolic HF (heart failure) ([facility]) Chronic diastolic heart failure Dizziness and giddiness- Primary Vertigo Dizziness and giddiness Suspected cerebrovascular accident (CVA) Exertional dyspnea Other dyspnea and respiratory abnormality Former smoker Personal history of tobacco use, presenting hazards to health Benign essential HTN ([facility]) Chronic diastolic HF (heart failure) ([facility]) Chronic diastolic heart failure Type 2 diabetes mellitus with diabetic neuropathy, with long-term current use of insulin ([facility])- Primary 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 ([facility]) Type 2 diabetes mellitus with diabetic polyneuropathy, with long-term current use of insulin ([facility]) Benign essential HTN ([facility]) Suspected cerebrovascular accident (CVA) Type 2 diabetes mellitus with diabetic neuropathy, with long-term current use of insulin ([facility])- Primary Suspected chronic obstructive pulmonary disease based on initial evaluation ([facility]) Hospital discharge follow-up- Primary Other follow-up examination Irregularly irregular pulse rhythm- Primary Type 2 diabetes mellitus with diabetic polyneuropathy, with long-term current use of insulin ([facility]) Paroxysmal atrial fibrillation ([facility]) Atrial fibrillation Type 2 diabetes mellitus with diabetic neuropathy, with long-term current use of insulin ([facility]/HCC) Benign essential HTN ([facility]/HCC) Chronic diastolic HF (heart failure) ([facility]/HCC) Chronic diastolic heart failure Type 2 diabetes mellitus with diabetic neuropathy, with long-term current use of insulin ([facility]/HCC)- Primary Intermittent palpitations Coronary artery disease involving [place] coronary artery 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 angina pectoris ([facility]/HCC) Chronic diastolic HF (heart failure) ([facility]/HCC) Chronic diastolic heart failure Chronic idiopathic constipation Unspecified constipation SOB (shortness of breath)- Primary Shortness of breath Type 2 diabetes mellitus with diabetic neuropathy, with long-term current use of insulin ([facility]/) Restrictive lung disease due to kyphoscoliosis SOB (shortness of breath)- Primary Shortness of breath Loculated pleural effusion Hospital discharge follow-up- Primary Other follow-up examination Chronic diastolic HF (heart failure) ([facility]/HCC) Chronic diastolic heart failure Loculated pleural effusion Acute on chronic hypoxic respiratory failure ([facility]) Type 2 diabetes mellitus with diabetic neuropathy, with long-term current use of insulin ([facility])- Primary Coronary artery disease involving bad [place] coronary artery 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 angina pectoris ([facility]/)- Primary Type 2 diabetes mellitus with diabetic neuropathy, with long-term current use of insulin ([facility]) Benign essential HTN ([facility]/HCC) Stage 3a chronic kidney disease (HCC) ([facility]) Restless legs syndrome Restless legs syndrome (RLS) documented in this encounter [facility] HealthcareEvaluation note* Diagnosis Diabetic peripheral neuropathy ([facility]) Type II or unspecified type diabetes mellitus with neurological manifestations, not stated as uncontrolled Paresthesias in right hand Disturbance of skin sensation documented in this encounter [facility]* Diagnosis Type 2 diabetes mellitus with diabetic polyneuropathy, with long-term current use of insulin ([facility])- Primary Diabetic polyneuropathy associated with type 2 diabetes mellitus ([facility]/HCC) Benign essential HTN (CMS/HCC) Stage 3a chronic kidney disease (HCC) ([facility]/HCC) Mixed hyperlipidemia ([facility]/HCC) Mixed hyperlipidemia Obesity, morbid ([facility]/HCC) Morbid obesity B12 deficiency Intermittent palpitations Encounter for Medicare annual wellness exam Type 2 diabetes mellitus with diabetic polyneuropathy, with long-term current use of insulin ([facility]/HCC)- Primary Benign essential HTN (CMS/HCC) Stage 3a chronic kidney disease (HCC) ([facility]) Type 2 diabetes mellitus with diabetic neuropathy, unspecified ([facility]) Ventricular bigeminy seen on casework specialist Coronary artery disease involving [place] coronary artery 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 angina pectoris ([facility]) Chronic diastolic HF (heart failure) ([facility]) Chronic diastolic heart failure Dizziness and giddiness- Primary Vertigo Dizziness and giddiness Suspected cerebrovascular accident (CVA) Exertional dyspnea Other dyspnea and respiratory abnormality Former smoker Personal history of tobacco use, presenting hazards to health Benign essential HTN ([facility]) Chronic diastolic HF (heart failure) ([facility]) Chronic diastolic heart failure Type 2 diabetes mellitus with diabetic neuropathy, with long-term current use of insulin ([facility])- Primary 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 ([facility]) Type 2 diabetes mellitus with diabetic polyneuropathy, with long-term current use of insulin ([facility]) Benign essential HTN ([facility]) Suspected cerebrovascular accident (CVA) Type 2 diabetes mellitus with diabetic neuropathy, with long-term current use of insulin ([facility])- Primary Suspected chronic obstructive pulmonary disease based on initial evaluation ([facility]) Irregularly irregular pulse rhythm- Primary Type 2 diabetes mellitus with diabetic polyneuropathy, with long-term current use of insulin ([facility]) Paroxysmal atrial fibrillation ([facility]) Atrial fibrillation Type 2 diabetes mellitus with diabetic neuropathy, with long-term current use of insulin ([facility]) Benign essential HTN ([facility]) Chronic diastolic HF (heart failure) ([facility]) Chronic diastolic heart failure Type 2 diabetes mellitus with diabetic neuropathy, with long-term current use of insulin ([facility])- Primary Intermittent palpitations Coronary artery disease involving [place] coronary artery 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 angina pectoris ([facility]) Chronic diastolic HF (heart failure) ([facility]) Chronic diastolic heart failure Chronic idiopathic constipation Unspecified constipation SOB (shortness of breath)- Primary Shortness of breath Type 2 diabetes mellitus with diabetic neuropathy, with long-term current use of insulin ([facility]) Restrictive lung disease due to kyphoscoliosis Hospital discharge follow-up- Primary Other follow-up examination Chronic diastolic HF (heart failure) ([facility]) Chronic diastolic heart failure Loculated pleural effusion Acute on chronic hypoxic respiratory failure ([facility]) Type 2 diabetes mellitus with diabetic neuropathy, with long-term current use of insulin ([facility]/HCC)- Primary Coronary artery disease involving [place] coronary artery 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 angina pectoris (CMS/HCC)- Primary Type 2 diabetes mellitus with diabetic neuropathy, with long-term current use of insulin (CMS/HCC) Benign essential HTN (CMS/HCC) Stage 3a chronic kidney disease (HCC) ([facility]/HCC) Type 2 diabetes mellitus with hyperglycemia, with long-term current use of insulin ([facility])- Primary Type 2 diabetes mellitus with diabetic neuropathy, with long-term current use of insulin ([facility]/HCC) Benign essential HTN ([facility]/HCC) Chronic obstructive pulmonary disease, unspecified COPD type (CMS/HCC) Chronic diastolic HF (heart failure) ([facility]/HCC) Chronic diastolic heart failure Multiple sclerosis ([facility]) Multiple sclerosis Hypothyroidism, unspecified type ([facility]/HCC) Chronic respiratory failure with hypoxia (CMS/HCC) Severe pulmonary hypertension (CMS/HCC) Stage 3b chronic kidney disease (HCC) ([facility]) Hypertensive heart disease with heart failure ([facility]) Unspecified hypertensive heart disease with heart failure Gastro-esophageal reflux disease without esophagitis Type 2 diabetes mellitus with diabetic chronic kidney disease ([facility]) documented in this encounter [facility] HealthcareEvaluation note* Diagnosis Type 2 diabetes mellitus with diabetic polyneuropathy, with long-term current use of insulin (HCC)- Primary Diabetic polyneuropathy associated with type 2 diabetes mellitus (HCC) Benign essential HTN Stage 3a chronic kidney disease ([facility]-HCC) Mixed hyperlipidemia Mixed hyperlipidemia Obesity, morbid ([facility]) Morbid obesity B12 deficiency Intermittent palpitations Encounter for Medicare annual wellness exam Type 2 diabetes mellitus with diabetic polyneuropathy, with long-term current use of insulin (HCC)- Primary Benign essential HTN Stage 3a chronic kidney disease ([facility]-HCC) Type 2 diabetes mellitus with diabetic neuropathy, unspecified (HCC) Ventricular bigeminy seen on casework specialist Coronary artery disease involving [place] coronary artery 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 angina pectoris Chronic diastolic HF (heart failure) (HCC) Chronic diastolic heart failure Dizziness and giddiness- Primary Vertigo Dizziness and giddiness Suspected cerebrovascular accident (CVA) Exertional dyspnea Other dyspnea and respiratory abnormality Former smoker Personal history of tobacco use, presenting hazards to health Benign essential HTN Chronic diastolic HF (heart failure) (HCC) Chronic diastolic heart failure Type 2 diabetes mellitus with diabetic neuropathy, with long-term current use of insulin (HCC)- Primary 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, with long-term current use of insulin (HCC) Benign essential HTN Suspected cerebrovascular accident (CVA) Type 2 diabetes mellitus with diabetic neuropathy, with long-term current use of insulin ([facility])- Primary Suspected chronic obstructive pulmonary disease based on initial evaluation ([facility]) Irregularly irregular pulse rhythm- Primary Type 2 diabetes mellitus with diabetic polyneuropathy, with long-term current use of insulin ([facility]) Paroxysmal atrial fibrillation (HCC) Atrial fibrillation Type 2 diabetes mellitus with diabetic neuropathy, with long-term current use of insulin ([facility]) Benign essential HTN Chronic diastolic HF (heart failure) (HCC) Chronic diastolic heart failure Type 2 diabetes mellitus with diabetic neuropathy, with long-term current use of insulin ([facility])- Primary Intermittent palpitations Coronary artery disease involving [place] coronary artery 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 angina pectoris Chronic diastolic HF (heart failure) ([facility]) Chronic diastolic heart failure Chronic idiopathic constipation Unspecified constipation SOB (shortness of breath)- Primary Shortness of breath Type 2 diabetes mellitus with diabetic neuropathy, with long-term current use of insulin ([facility]) Restrictive lung disease due to kyphoscoliosis Hospital discharge follow-up- Primary Other follow-up examination Chronic diastolic HF (heart failure) ([facility]) Chronic diastolic heart failure Loculated pleural effusion Acute on chronic hypoxic respiratory failure ([facility]) Type 2 diabetes mellitus with diabetic neuropathy, with long-term current use of insulin ([facility])- Primary Coronary artery disease involving [place] coronary artery 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 angina pectoris- Primary Type 2 diabetes mellitus with diabetic neuropathy, with long-term current use of insulin ([facility]) Benign essential HTN Stage 3a chronic kidney disease ([facility]) Type 2 diabetes mellitus with hyperglycemia, with long-term current use of insulin ([facility])- Primary Type 2 diabetes mellitus with diabetic neuropathy, with long-term current use of insulin ([facility]) Benign essential HTN Chronic obstructive pulmonary disease, unspecified COPD type ([facility]) Chronic diastolic HF (heart failure) ([facility]) Chronic diastolic heart failure Multiple sclerosis ([facility]) Multiple sclerosis Hypothyroidism, unspecified type Chronic respiratory failure with hypoxia ([facility]) Severe pulmonary hypertension ([facility]) Stage 3b chronic kidney disease ([facility]) Hypertensive heart disease with heart failure ([facility]) Unspecified hypertensive heart disease with heart failure Gastro-esophageal reflux disease without esophagitis Type 2 diabetes mellitus with diabetic chronic kidney disease ([facility]) Type 2 diabetes mellitus with hyperglycemia, with long-term current use of insulin ([facility])- Primary documented in this encounter [facility] HealthcareEvaluation note* Diagnosis Unsteady gait- Primary Abnormality of gait Peripheral polyneuropathy 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 Vitamin B12 deficiency Other B-complex deficiencies [facility]* Diagnosis Acute respiratory failure with hypoxia ([facility] [place] Primary COPD exacerbation ([facility] [place] Obstructive chronic bronchitis with exacerbation Hypoxia Hypoxemia Exertional dyspnea Other dyspnea and respiratory abnormality Acute on chronic congestive heart failure, unspecified heart failure type ([facility] [place]) Pleural effusion Unspecified pleural effusion Hypomagnesemia Disorders of magnesium metabolism Hypokalemia Hypopotassemia Stage 3a chronic kidney disease ([facility] [place] Obesity (BMI 30-39.9) Benign essential HTN Diabetes mellitus ([facility] [place]) Type II or unspecified type diabetes mellitus without mention of complication, not stated as uncontrolled Mixed hyperlipidemia Hypokalemia Hypopotassemia Hypomagnesemia Disorders of magnesium metabolism COPD exacerbation ([facility] [place]) Obstructive chronic bronchitis with exacerbation [facility] Diagnosis Type 2 diabetes mellitus with diabetic polyneuropathy, with long-term current use of insulin ([facility])- Primary Diabetic polyneuropathy associated with type 2 diabetes mellitus ([facility]) Benign essential HTN Stage 3a chronic kidney disease ([facility] [place]) Mixed hyperlipidemia Mixed hyperlipidemia Obesity, morbid ([facility] [place]) Morbid obesity B12 deficiency Intermittent palpitations Encounter for Medicare annual wellness exam Type 2 diabetes mellitus with diabetic polyneuropathy, with long-term current use of insulin ([facility])- Primary Benign essential HTN Stage 3a chronic kidney disease ([facility] [place]) Type 2 diabetes mellitus with diabetic neuropathy, unspecified ([facility]) Ventricular bigeminy seen on casework specialist Coronary artery disease involving bad river band coronary artery 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 angina pectoris Chronic diastolic HF (heart failure) ([facility]) Chronic diastolic heart failure Dizziness and giddiness- Primary Vertigo Dizziness and giddiness Suspected cerebrovascular accident (CVA) Exertional dyspnea Other dyspnea and respiratory abnormality Former smoker Personal history of tobacco use, presenting hazards to health Benign essential HTN Chronic diastolic HF (heart failure) ([facility]) Chronic diastolic heart failure Type 2 diabetes mellitus with diabetic neuropathy, with long-term current use of insulin ([facility])- Primary 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, with long-term current use of insulin ([facility]) Benign essential HTN Suspected cerebrovascular accident (CVA) Type 2 diabetes mellitus with diabetic neuropathy, with long-term current use of insulin ([facility])- Primary Suspected chronic obstructive pulmonary disease based on initial evaluation ([facility]) Irregularly irregular pulse rhythm- Primary Type 2 diabetes mellitus with diabetic polyneuropathy, with long-term current use of insulin ([facility]) Paroxysmal atrial fibrillation (HCC) Atrial fibrillation Type 2 diabetes mellitus with diabetic neuropathy, with long-term current use of insulin ([facility]) Benign essential HTN Chronic diastolic HF (heart failure) (HCC) Chronic diastolic heart failure Type 2 diabetes mellitus with diabetic neuropathy, with long-term current use of insulin ([facility])- Primary Intermittent palpitations Coronary artery disease involving bad [place] coronary artery 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 angina pectoris Chronic diastolic HF (heart failure) ([facility]) Chronic diastolic heart failure Chronic idiopathic constipation Unspecified constipation SOB (shortness of breath)- Primary Shortness of breath Type 2 diabetes mellitus with diabetic neuropathy, with long-term current use of insulin ([facility]) Restrictive lung disease due to kyphoscoliosis Hospital discharge follow-up- Primary Other follow-up examination Chronic diastolic HF (heart failure) ([facility]) Chronic diastolic heart failure Loculated pleural effusion Acute on chronic hypoxic respiratory failure ([facility]) Type 2 diabetes mellitus with diabetic neuropathy, with long-term current use of insulin ([facility])- Primary Coronary artery disease involving bad river band coronary artery 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 angina pectoris- Primary Type 2 diabetes mellitus with diabetic neuropathy, with long-term current use of insulin ([facility]) Benign essential HTN Stage 3a chronic kidney disease ([facility]) Type 2 diabetes mellitus with hyperglycemia, with long-term current use of insulin ([facility])- Primary Type 2 diabetes mellitus with diabetic neuropathy, with long-term current use of insulin ([facility]) Benign essential HTN Chronic obstructive pulmonary disease, unspecified COPD type ([facility]) Chronic diastolic HF (heart failure) ([facility]) Chronic diastolic heart failure Multiple sclerosis ([facility]) Multiple sclerosis Hypothyroidism, unspecified type Chronic respiratory failure with hypoxia ([facility]) Severe pulmonary hypertension ([facility]) Stage 3b chronic kidney disease ([facility]) Hypertensive heart disease with heart failure ([facility]) Unspecified hypertensive heart disease with heart failure Gastro-esophageal reflux disease without esophagitis Type 2 diabetes mellitus with diabetic chronic kidney disease ([facility]) Chronic heart failure with mildly reduced ejection fraction (HFmrEF, 41-49%) ([facility])- Primary Chronic obstructive pulmonary disease, unspecified COPD type ([facility]) Chronic respiratory failure with hypoxia ([facility]) Type 2 diabetes mellitus with hyperglycemia, with long-term current use of insulin ([facility]) documented in this encounter [facility] HealthcareEvaluation [facility]* Diagnosis Type 2 diabetes mellitus with diabetic polyneuropathy, with long-term current use of insulin ([facility])- Primary Diabetic polyneuropathy associated with type 2 diabetes mellitus ([facility]) Benign essential HTN Stage 3a chronic kidney disease ([facility]) Mixed hyperlipidemia Mixed hyperlipidemia Obesity, morbid ([facility]) Morbid obesity B12 deficiency Intermittent palpitations Encounter for Medicare annual wellness exam Type 2 diabetes mellitus with diabetic polyneuropathy, with long-term current use of insulin (HCC)- Primary Benign essential HTN Stage 3a chronic kidney disease ([facility]) Type 2 diabetes mellitus with diabetic neuropathy, unspecified ([facility]) Ventricular bigeminy seen on casework specialist Coronary artery disease involving bad river band coronary artery 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 angina pectoris Chronic diastolic HF (heart failure) (HCC) Chronic diastolic heart failure Dizziness and giddiness- Primary Vertigo Dizziness and giddiness Suspected cerebrovascular accident (CVA) Exertional dyspnea Other dyspnea and respiratory abnormality Former smoker Personal history of tobacco use, presenting hazards to health Benign essential HTN Chronic diastolic HF (heart failure) (HCC) Chronic diastolic heart failure Type 2 diabetes mellitus with diabetic neuropathy, with long-term current use of insulin ([facility])- Primary 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, with long-term current use of insulin ([facility]) Benign essential HTN Suspected cerebrovascular accident (CVA) Type 2 diabetes mellitus with diabetic neuropathy, with long-term current use of insulin ([facility])- Primary Suspected chronic obstructive pulmonary disease based on initial evaluation ([facility]) Irregularly irregular pulse rhythm- Primary Type 2 diabetes mellitus with diabetic polyneuropathy, with long-term current use of insulin (HCC) Paroxysmal atrial fibrillation (HCC) Atrial fibrillation Type 2 diabetes mellitus with diabetic neuropathy, with long-term current use of insulin ([facility]) Benign essential HTN Chronic diastolic HF (heart failure) (HCC) Chronic diastolic heart failure Type 2 diabetes mellitus with diabetic neuropathy, with long-term current use of insulin ([facility])- Primary Intermittent palpitations Coronary artery disease involving bad river [place] coronary artery 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 angina pectoris Chronic diastolic HF (heart failure) (HCC) Chronic diastolic heart failure Chronic idiopathic constipation Unspecified constipation SOB (shortness of breath)- Primary Shortness of breath Type 2 diabetes mellitus with diabetic neuropathy, with long-term current use of insulin (HCC) Restrictive lung disease due to kyphoscoliosis Hospital discharge follow-up- Primary Other follow-up examination Chronic diastolic HF (heart failure) (HCC) Chronic diastolic heart failure Loculated pleural effusion Acute on chronic hypoxic respiratory failure (HCC) Type 2 diabetes mellitus with diabetic neuropathy, with long-term current use of insulin (HCC)- Primary Coronary artery disease involving bad river band coronary artery 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 angina pectoris- Primary Type 2 diabetes mellitus with diabetic neuropathy, with long-term current use of insulin (HCC) Benign essential HTN Stage 3a chronic kidney disease (CMS-HCC) Type 2 diabetes mellitus with hyperglycemia, with long-term current use of insulin (HCC)- Primary Type 2 diabetes mellitus with diabetic neuropathy, with long-term current use of insulin (HCC) Benign essential HTN Chronic obstructive pulmonary disease, unspecified COPD type (HCC) Chronic diastolic HF (heart failure) (HCC) Chronic diastolic heart failure Multiple sclerosis (HCC) Multiple sclerosis Hypothyroidism, unspecified type Chronic respiratory failure with hypoxia (HCC) Severe pulmonary hypertension (HCC) 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) Unspecified hypertensive heart disease with heart failure Gastro-esophageal reflux disease without esophagitis 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, 41-49%) (HCC)- Primary Chronic obstructive pulmonary disease, unspecified COPD type (HCC) Chronic respiratory failure with hypoxia (HCC) Type 2 diabetes mellitus with hyperglycemia, with long-term current use of insulin (HCC) Type 2 diabetes mellitus with hyperglycemia, with long-term current use of insulin (HCC)- Primary Benign essential HTN Chronic obstructive pulmonary disease, unspecified COPD type (HCC) Chronic heart failure with mildly reduced ejection fraction (HFmrEF, 41-49%) (HCC) 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 Encounter for long-term (current) use of medications Encounter for long-term (current) use of other medications [facility] Discharge instructionsNot on filedocumented in this encounterProMetrohealth [facility] Medical CenterInstructionsNot on filedocumented in this encounterProMetrohealth Main Campus Medical CenterInstructionsNot on filedocumented in this encounterCherrington HospitalInstructionsNot on filedocumented in this encounterCherrington HospitalInstructionsNot on filedocumented in this encounterProMedica Health SystemInstructionsNot on filedocumented in this encounterProMedica Health SystemInstructionsNot on filedocumented in this encounterProMedica Health SystemInstructionsNot on filedocumented in this encounterProMedica Health SystemInstructionsNot on filedocumented in this encounterProMedica Health SystemInstructionsNot on filedocumented in this encounterProMedica Health SystemInstructionsNot on filedocumented in this encounterProMedica Health SystemInstructionsNot on filedocumented in this encounterProMedica Health SystemInstructionsNot on filedocumented in this encounterProMedica Health SystemInstructionsNot on filedocumented in this encounterProMedica Health SystemInstructionsNot on filedocumented in this encounterProMedica Health SystemInstructionsNot on filedocumented in this encounterProMedica Health SystemInstructionsNot on filedocumented in this encounterProMedica Health SystemInstructionsNot on filedocumented in this encounterProMedica Health SystemInstructionsNot on filedocumented in this encounterProMedica Health SystemReluke for referral (narrative)* Consultation (Routine) - Pending Review Specialty Diagnoses / Procedures Referred By Jaye hunter Referred To Contact Endocrinology Diagnoses Type 2 diabetes mellitus with diabetic neuropathy, with long-term current use of insulin ([facility]) Procedures LA OFFICE/OUTPATIENT NEW HIGH MDM 60 MINUTES Jyoti Wiggins NP [address] [place] [phone] Jhoana Pierre MD [address] [place] [address] Referral ID Status Reason Start Date Expiration Date Visits Requested Visits Authorized [id number] Pending Review Specialty Services Required 01/14/2024 07/12/2024 1 1 Scheduling Instructions Please include OV note from today 01/13 and patient Outreach note from 01/09. [facility] Consultation (Routine) - Pending Review Specialty Diagnoses / Procedures Referred By Contac t Referred To Contact Breast Surgery Diagnoses Port-A-Cath in place Dean Gunter MD [address] [place] [address] [facility] [place] [address] [place] [address] [address] [place] [address] Referral ID Status Reason Start Date Expiration Date V isits Requested Visits Authorized [id number] Pending Review 09/20/2023 09/19/2024 1 1 [facility] for referral (narrative)* Consultation (Routine) - Pending Review Specialty Diagnoses / Procedures Referred By Contac t Referred To Contact Pulmonary Medicine Diagnoses Hypoxia Chronic obstructive pulmonary disease, unspecified COPD type ([facility]) Mauro Toney APRN-TEJINDER [address] [place] [address] [facility] Pulmonary Function [address] [place] [address] Referral ID Status Reason Start Date Expiration Date Visits Requested Visits Authorized [id number] Pending Review Specialty Services Required 06/25/2023 06/24/2024 1 1 * Misc (Routine) - Pending Review Specialty Diagnoses / Procedures Referred By Contac t Referred To Contact Procedures Discharge Follow-Up Mauro Toney APRN-TEJINDER [address] [place] [address] Referral ID Status Reason Start Date Expiration Date V isits Requested Visits Authorized [id number] Pending Review 06/25/2023 06/24/2024 1 1 * Misc (Routine) - Pending Review Specialty Diagnoses / Procedures Referred By Contac t Referred To Contact Diagnoses Chronic obstructive pulmonary disease, unspecified COPD type ([facility]) Procedures Follow-up with primary care provider Mauro Toney APRN-CNP [address], [facility] [address] [place] [address] Referral ID Status Reason Start Date Expiration Date V isits Requested Visits Authorized [id number] Pending Review 06/25/2023 06/24/2024 1 1 * Misc (Routine) - Pending Review Specialty Diagnoses / Procedures Referred By Contac t Referred To Contact Procedures Adult diet Mauro Toney APRN-TEJINDER [address], [place] [address] Referral ID Status Reason Start Date Expiration Date V isits Requested Visits Authorized [id number] Pending Review 06/25/2023 06/24/2024 1 1 * Misc (Routine) - Pending Review Specialty Diagnoses / Procedures Referred By Contac t Referred To Contact Diagnoses Hypoxia Chronic obstructive pulmonary disease, unspecified COPD type ([facility]) Procedures Oxygen Therapy Mauro Toney, PASTEURIZER-BODY STRAIGHTENER [address], [address] [address] Referral ID Status Reason Start Date Expiration Date V isits Requested Visits Authorized [id number] Pending Review 06/25/2023 06/24/2024 1 1 [facility] for referral (narrative)* Consultation (Routine) - Pending Review Specialty Diagnoses / Procedures Referred By Contac t Referred To Contact Neurology Diagnoses Kayy Ramirez PA-C [address] [place] [address], [address] [place] [address] Blanca Rosales MD [address] [place] [address], [address], [address], [address] [place] [address] Referral ID Status Reason Start Date Expiration Date Visits Requested Visits Authorized [id number] Pending Review Specialty Services Required 07/06/2023 07/05/2024 1 1 Scheduling Instructions Botox due to torticollis * Rehabilitation - Outpatient (Routine) - Authorized Specialty Diagnoses / Procedures Referred By Jaye hunter Referred To Contact Rehabilitation Diagnoses Ulnar neuropathy at elbow of right upper extremity Torticollis Kayy Hines PA-C [address] [place] [address], [address] [place] [address] [facility] [address] [place] [phone] Referral ID Status Reason Start Date Expiration Date Visits Requested Visits Authorized [id number] Authorized Specialty Services Required 07/06/2023 07/05/2024 12 12 * Neurology (Routine) - Pending Review Specialty Diagnoses / Procedures Referred By Jaye hunter Referred To Contact Diagnoses Diabetic peripheral neuropathy ([facility]) Ulnar neuropathy at elbow of right upper extremity Procedures EMG NCV Kayy Hines PA-C [address] [place] [address], [address] [place] [address] Referral ID Status Reason Start Date Expiration Date V isits Requested Visits Authorized [id number] Pending Review 07/06/2023 07/05/2024 1 1 [facility] [employer] Interpreting System Summary Purpose Family History Relationship Condition Age at Onset Recorded Date/T lupe brother Hypertension Unknown father Heart disease Unknown Family history of lung cancer Unknown Hypertension Unknown Unknown Malignant neoplasm Unknown grandparent Diabetes mellitus Unknown mother Hypertension Unknown sister Hypertension Unknown Advance Directives Advance Directive Response Recorded Date/ Time Advance Directives No March 2:07pm Date Activated Date Inactivated Comments 10/19/2023 7:17 PM 10/20/2023 3:11 PM Date Activated Date Inactivated Comments 06/22/2023 9:55 AM 06/25/2023 11:49 PM Date Activated Date Inactivated Comments 03/21/2023 2:25 PM 03/22/2023 4:09 PM Date Activated Date Inactivated Comments 08/16/2018 9:09 PM 08/17/2018 2:57 PM Date Activated Date Inactivated Comments 07/15/2018 11:56 AM 07/15/2018 7:22 PM Date Activated Date Inactivated Comments 06/22/2023 9:55 AM 06/25/2023 11:49 PM Date Activated Date Inactivated Comments 03/21/2023 2:25 PM 03/22/2023 4:09 PM Date Activated Date Inactivated Comments 08/16/2018 9:09 PM 08/17/2018 2:57 PM Date Activated Date Inactivated Comments 07/15/2018 11:56 AM 07/15/2018 7:22 PM Date Activated Date Inactivated Comments 06/22/2023 9:55 AM 06/25/2023 11:49 PM Date Activated Date Inactivated Comments 03/21/2023 2:25 PM 03/22/2023 4:09 PM Date Activated Date Inactivated Comments 08/16/2018 9:09 PM 08/17/2018 2:57 PM Date Activated Date Inactivated Comments 07/15/2018 11:56 AM 07/15/2018 7:22 PM Latest Code Status on File Code Status Date Activated Date Inactivated Comments Full Code 03/21/2023 2:25 PM 03/22/2023 4:09 PM Code Status History Code Status Date Activated Date Inactivated Comments Full Code 08/16/2018 9:09 PM 08/17/2018 2:57 PM Full Code 07/15/2018 11:56 AM 07/15/2018 7:22 PM Date Activated Date Inactivated Comments 10/19/2023 7:17 PM 10/20/2023 3:11 PM Date Activated Date Inactivated Comments 06/22/2023 9:55 AM 06/25/2023 11:49 PM Date Activated Date Inactivated Comments 03/21/2023 2:25 PM 03/22/2023 4:09 PM Date Activated Date Inactivated Comments 08/16/2018 9:09 PM 08/17/2018 2:57 PM Date Activated Date Inactivated Comments 07/15/2018 11:56 AM 07/15/2018 7:22 PM Latest [...] Code 07/15/2018 11:56 AM 07/15/2018 7:22 PM Date Activated Date Inactivated Comments 12/06/2024 10:47 PM Date Activated Date Inactivated Comments 10/19/2023 7:17 PM 10/20/2023 3:11 PM Date Activated Date Inactivated Comments 06/22/2023 9:55 AM 06/25/2023 11:49 PM Date Activated Date Inactivated Comments 03/21/2023 2:25 PM 03/22/2023 4:09 PM Date Activated Date Inactivated Comments 08/16/2018 9:09 PM 08/17/2018 2:57 PM Date Activated Date Inactivated Comments 12/09/2024 12:26 AM 12/12/2024 2:59 PM Date Activated Date Inactivated Comments 12/06/2024 10:47 PM 12/08/2024 11:35 PM Date Activated Date Inactivated Comments 10/19/2023 7:17 PM 10/20/2023 3:11 PM Date Activated Date Inactivated Comments 06/22/2023 9:55 AM 06/25/2023 11:49 PM Date Activated Date Inactivated Comments 03/21/2023 2:25 PM 03/22/2023 4:09 PM Chief Complaint and Reason for Visit Chief Complaint Diff Breathing Reason for Visit Acute on chronic hyp oxic respiratory failure Bigeminy CHF (congestive heart failure) Reason for Referral Specialty Diagnoses / Procedures Referred By Contac t Referred To Contact Diagnoses Paresthesias in right hand Procedures EMG NCV Kayy Hines, INDRA [address] [facility], [address] [place] [address] Referral ID Status Reason Start Date Expiration Date V isits Requested Visits Authorized [id number] Pending Review 11/06/2023 11/05/2024 1 1 Specialty Diagnoses / Procedures Referred By Contac t Referred To Contact Radiology Diagnoses 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, estrogen receptor positive (CMS-HCC) 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 History of cancer of left breast Procedures MR bilateral breast with and without contrast with CAD Bo Rincon MD [address] [place] [address], [facility] [address] [place] [address] Referral ID Status Reason Start Date Expiration Date V isits Requested Visits Authorized [id number] Pending Review 11/09/2023 11/08/2024 1 1 Specialty Diagnoses / Procedures Referred By Contac t Referred To Contact Radiology Diagnoses 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, estrogen receptor positive (CMS-HCC) Pleural effusion on right Procedures IR thoracentesis with guidance right Dean Gunter MD [address] [place], [place] [address] [place] [address] Referral ID Status Reason Start Date Expiration Date V isits Requested Visits Authorized [id number] Pending Review 12/26/2023 12/25/2024 1 1 Specialty Diagnoses / Procedures [facility] Referred To Contact Radiology Diagnoses 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, estrogen receptor positive (CMS-HCC) Pleural effusion on right 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) Procedures CT chest with contrast Dean Gunter MD [facility] [address] [place] [address] Referral ID Status Reason Start Date Expiration Date V isits Requested Visits Authorized [id number] Pending Review 02/01/2024 01/31/2025 1 1 Specialty Diagnoses / Procedures Referred By Jaye hunter Referred To Contact Occupational Therapy Diagnoses Carpal tunnel syndrome of right wrist Ulnar neuropathy of right upper extremity Kayy Hines PA-C [address], [address] [place] [address] Referral ID Status Reason Start Date Expiration Date Visits Requested Visits Authorized [id number] Pending Review Specialty Services Required 4 09/05/2024 12 12 Specialty Diagnoses / Procedures Referred By Jaye hunter Referred To Contact Rehabilitation Diagnoses Peripheral polyneuropathy Unsteady gait Kayy Hines PA-C [address], [address] [place] [address] Referral ID Status Reason Start Date Expiration Date Visits Requested Visits Authorized [id number] Pending Review Specialty Services Required 4 09/05/2024 1 1 Scheduling Instructions Balance and Mobility Additional Source Comments INFORMATION SOURCE (unrecogn ized section and content) DATE CREATED AUTHOR 07/15/2019 [facility] DATE CREATED AUTHOR AUTHOR'S ORGANIZ ATION 04/01/2022 [facility] [facility] DATE CREATED AUTHOR AUTHOR'S ORGANIZ ATION 11/10/2023 [facility] DATE CREATED AUTHOR AUTHOR'S ORGANIZ ATION 03/29/2024 [facility] DATE CREATED AUTHOR AUTHOR'S ORGANIZ ATION 12/13/2024 [facility] DATE CREATED AUTHOR AUTHOR'S ORGANIZ ATION 01/06/2025 [facility] DATE CREATED AUTHOR AUTHOR'S ORGANIZ ATION 01/13/2025 [facility] EPIC DATE CREATED AUTHOR AUTHOR'S ORGANIZ ATION 01/18/2025 [facility] DATE CREATED AUTHOR AUTHOR'S ORGANIZ ATION 01/19/2025 [facility] Care Teams (unrecognized sec tion and content) Med Care Manager Relationship Specialty Start Date End Date Fawd, Martinez, MD PCP - General Internal Medicine 12/08/22 Shaikh Weiss MD [address] [place] [address] PCP - Devoted 02/25/23 Med Care Manager Relationship Specialty Start Date End Date Shaikh Weiss MD PCP - General Internal Medicine 12/08/22 Shaikh Weiss MD [address] [place] [address] PCP - Devoted 02/25/23 Med Care Manager Relationship Specialty Start Date End Date Shaikh Weiss MD PCP - General Internal Medicine 12/08/22 Shaikh Weiss MD [address] [place] [address] PCP - Devoted 02/25/23 Team Status: Active Member Role Status Dates Shaikh Isela MD Primary Care Provider Active Team Status: Active Member Role Status Dates Susanne Cannon DO Emergency Provider Active St art: December 26, 2023 Shaikh Isela MD Primary Care Provider Active Start: December 26, 2023 Wilberto Cifuentes DO Admit Provider, Attending Provider Active Start: December 26, 2023 Med Care Manager Relationship Specialty Start Date End Date Shaikh Weiss MD [address] [place] [address] PCP - Devoted 02/25/23 George Hayden MD [address] [place] [address] PCP - General Family Medicine 01/01/24 Jyoti Wiggins, OANH [address] [place] [address] Nurse Practitioner Family Medicine 01/01/24 Blank Johnson LPN Licensed Practical Nurse Family Medicine 02/08/24 Med Care Manager Relationship Specialty Start Date End Date Shaikh Weiss MD [address] [place] [address] PCP - Devoted 02/25/23 George Hayden MD [address] [place] [address] PCP - General Family Medicine 01/01/24 Jyoti Wiggins, OANH [address] [place] [address] Nurse Practitioner Family Medicine 01/01/24 Blank Johnson LPN Licensed Practical Nurse Family Medicine 02/08/24 Med Care Manager Relationship Specialty Start Date End Date Shaikh Weiss MD [address] [place] [address] PCP - Devoted 02/25/23 George Hayden MD [address] [place] [address] PCP - General Family Medicine 01/01/24 Jyoti Wiggins NP [address] [place] [address] Nurse Practitioner Family Medicine 01/01/24 Blank Johnson LPN Licensed Practical Nurse Family Medicine 02/08/24 Med Care Manager Relationship Specialty Start Date End Date Shaikh Weiss MD [address] [place] [address] PCP - Devoted 02/25/23 George Hayden MD [address] [place] [address] PCP - General Family Medicine 01/01/24 Jyoti Wiggins NP [address] [place] [address] Nurse Practitioner Family Medicine 01/01/24 Blank Johnson LPN Licensed Practical Nurse Family Medicine 02/08/24 Med Care Manager Relationship Specialty Start Date End Date Shaikh Weiss MD [address] [place] [address] PCP - Devoted 02/25/23 George Hayden MD [address] [place] [address] PCP - General Family Medicine 01/01/24 Jyoti Wiggins NP [address] [place] [address] Nurse Practitioner Family Medicine 01/01/24 Blank Johnson LPN Licensed Practical Nurse Family Medicine 02/08/24 Med Care Manager Relationship Specialty Start Date End Date Shaikh Weiss MD [address] [place] [address] PCP - Devoted 02/25/23 George Hayden MD [address] [place] [address] PCP - General Family Medicine 01/01/24 Jyoti Wiggins NP [address] [place] [address] Nurse Practitioner Family Medicine 01/01/24 Tanna Rodríguez MA Family Medicine 04/07/24 Med Care Manager Relationship Specialty Start Date End Date Shaikh Weiss MD [address] [place] [address] PCP - Devoted 02/25/23 05/27/24 George Hayden MD [address] [place] [address] PCP - General Family Medicine 01/01/24 Jyoti Wiggins NP [address] [place] [address] Nurse Practitioner Family Medicine 01/01/24 Tanna Rodríguez MA [facility] Medicine 04/07/24 Med Care Manager Relationship Specialty Start Date End Date Shaikh Weiss MD [address] [place] [address] PCP - Devoted 02/25/23 George Hayden MD [address] [place] [address] PCP - General Family Medicine 01/01/24 Mohsen Rizzo LPN Licensed Practical Nurse Family Medicine 08/30/23 Jyoti Wiggins, OANH [address] [place] [address] Nurse Practitioner Family Medicine 01/01/24 Med Care Manager Relationship Specialty Start Date End Date Shaikh Weiss MD [address] [place] [address] PCP - Devoted 02/25/23 George Hayden MD [address] [place] [address] PCP - General Family Medicine 01/01/24 Mohsen Rizzo LPN Licensed Practical Nurse Family Medicine 08/30/23 Jyoti Wiggins, OANH [address] [place] [address] Nurse Practitioner Family Medicine 01/01/24 Med Care Manager Relationship Specialty Start Date End Date Shaikh Weiss MD [address] [place] [address] PCP - Devoted 02/25/23 George Hayden MD [address] [place] [address] PCP - General Family Medicine 01/01/24 Mohsen Rizzo LPN Licensed Practical Nurse Family Medicine 08/30/23 Jyoti Wiggins NP [address] [place] [address] Nurse Practitioner Family Medicine 01/01/24 Med Care Manager Relationship Specialty Start Date End Date Shaikh Weiss MD PCP - General Internal Medicine 12/25/23 Med Care Manager Relationship Specialty Start Date End Date George Hayden MD [address] [place] [address] PCP - General Family Medicine 01/01/24 George Hayden MD [address] [place] [address] PCP - Devoted 05/28/24 Jyoti Wiggins NP [address] [place] [address] Nurse Practitioner Family Medicine 01/01/24 Tanna Rodríguez MA Family Medicine 04/07/24 Med Care Manager Relationship Specialty Start Date End Date George Hayden MD [address] [place] [address] PCP - General Family Medicine 01/01/24 George Hayden MD [address] [place] [address] PCP - Devoted 05/28/24 Jyoti Wiggins NP [address] [place] [address] Nurse Practitioner Family Medicine 01/01/24 Tanna Rodríguez MA Family Medicine 04/07/24 Med Care Manager Relationship Specialty Start Date End Date Shaikh Weiss MD [address] [place] [address] PCP - General Internal Medicine 11/04/21 Med Care Manager Relationship Specialty Start Date End Date Shaikh Weiss MD [address] [place] [address] PCP - General Internal Medicine 11/04/21 Med Care Manager Relationship Specialty Start Date End Date Shaikh Weiss MD [address] [place] [address] PCP - General Internal Medicine 11/04/21 Med Care Manager Relationship Specialty Start Date End Date George Hayden MD [address] [place] [address] PCP - General Family Medicine 01/01/24 George Hayden MD [address] [place] [address] PCP - Devoted 05/28/24 Jyoti Wiggins NP [address] [place] [address] Nurse Practitioner Family Medicine 01/01/24 Tanna Rodríguez MA Family Medicine 04/07/24 Med Care Manager Relationship Specialty Start Date End Date Shaikh Weiss MD [address] [place] [address] PCP - General Internal Medicine 11/04/21 Med Care Manager Relationship Specialty Start Date End Date Shaikh Weiss MD [address] [place] [address] PCP - General Internal Medicine 10/05/23 Med Care Manager Relationship Specialty Start Date End Date Shaikh Weiss MD [address] [place] [address] PCP - General Internal Medicine 11/04/21 Med Care Manager Relationship Specialty Start Date End Date Shaikh Weiss MD [address] [place] [address] PCP - General Internal Medicine 11/04/21 Med Care Manager Relationship Specialty Start Date End Date Shaikh Weiss MD [address] [place] [address] PCP - General Internal Medicine 11/04/21 Med Care Manager Relationship Specialty Start Date End Date Shaikh Weiss MD [address] [place] [address] PCP - General Internal Medicine 11/04/21 Med Care Manager Relationship Specialty Start Date End Date Shaikh Weiss MD [address] [place] [address] PCP - General Internal Medicine 11/04/21 Med Care Manager Relationship Specialty Start Date End Date Shaikh Weiss MD [address] [place] [address] PCP - General Internal Medicine 11/04/21 Med Care Manager Relationship Specialty Start Date End Date Shaikh Weiss MD [address] [place] [address] PCP - General Internal Medicine 11/04/21 Med Care Manager Relationship Specialty Start Date End Date Shaikh Weiss MD [address] [place] [address] PCP - General Internal Medicine 11/04/21 Med Care Manager Relationship Specialty Start Date End Date Shaikh Weiss MD [address] [place] [address] PCP - General Internal Medicine 12/25/23 Med Care Manager Relationship Specialty Start Date End Date Shaikh Weiss MD PCP - General Internal Medicine 12/25/23 Med Care Manager Relationship Specialty Start Date End Date Shaikh Weiss MD PCP - General Internal Medicine 12/25/23 Med Care Manager Relationship Specialty Start Date End Date Shaikh Weiss MD PCP - General Internal Medicine 12/25/23 Med Care Manager Relationship Specialty Start Date End Date Shaikh Weiss MD PCP - General Internal Medicine 12/25/23 Med Care Manager Relationship Specialty Start Date End Date Shaikh Weiss MD PCP - General Internal Medicine 12/25/23 Med Care Manager Relationship Specialty Start Date End Date George Hayden MD [address] [place] [address] PCP - General Family Medicine 01/01/24 George Hayden MD [address] [place] [address] PCP - Devoted 05/28/24 Jyoti Wiggins NP [address] [place] [address] Nurse Practitioner Family Medicine 01/01/24 Tanna Rodríguez MA Family Medicine 04/07/24 Med Care Manager Relationship Specialty Start Date End Date Shaikh Weiss MD PCP - General Internal Medicine 12/25/23 Med Care Manager Relationship Specialty Start Date End Date George Hayden MD [address] [place] [address] PCP - General Family Medicine 01/01/24 George Hayden MD [address] [place] [address] PCP - Devoted 05/28/24 Jyoti Wiggins NP [address] [place] [address] Nurse Practitioner Family Medicine 01/01/24 Tanna Rodríguez MA Family Medicine 04/07/24 Med Care Manager Relationship Specialty Start Date End Date Shaikh Weiss MD PCP - General Internal Medicine 12/25/23 Med Care Manager Relationship Specialty Start Date End Date George Hayden MD [address] [place] [address] PCP - General Family Medicine 01/01/24 George Hayden MD [address] [place] [address] PCP - Devoted 05/28/24 Jyoti Wiggins NP [address] [place] [address] Nurse Practitioner Family Medicine 01/01/24 Tanna Rodríguez MA Family Medicine 04/07/24 Med Care Manager Relationship Specialty Start Date End Date Shaikh Weiss MD PCP - General Internal Medicine 12/25/23 Med Care Manager Relationship Specialty Start Date End Date George Hayden MD [address] [place] [address] PCP - General Family Medicine 01/01/24 George Hayden MD [address] [place] [address] PCP - Devoted 05/28/24 Jyoti Wiggins NP [address] [place] [address] Nurse Practitioner Family Medicine 01/01/24 Tanna Rodríguez MA Family Medicine 04/07/24 Med Care Manager Relationship Specialty Start Date End Date George Hayden MD [address] [place] [address] PCP - General Family Medicine 01/01/24 George Hayden MD [address] [place] [address] PCP - Devoted 05/28/24 Jyoti Wiggins NP [address] [place] [address] Nurse Practitioner [facility] Medicine 01/01/24 Tanna Rodríguez GA [address] [place] [address] Family Medicine 04/07/24 Med Care Manager Relationship Specialty Start Date End Date Shaikh Weiss MD PCP - General Internal Medicine 12/25/23 Med Care Manager Relationship Specialty Start Date End Date Shaikh Weiss MD PCP - General Internal Medicine 12/25/23 Med Care Manager Relationship Specialty Start Date End Date George Hayden MD [address] [address] PCP - General Family Medicine 12/08/24 Med Care Manager Relationship Specialty Start Date End Date George Hayden MD [address] [place] [address] PCP - General Family Medicine 01/01/24 George Hayden MD [address] [place] [address] PCP - Devoted 05/28/24 Jyoti Wiggins NP [address] [place] [address] Nurse Practitioner Family Medicine 01/01/24 Tanna Rodríguez MA [address] [place] [address] Family Medicine 04/07/24 Med Care Manager Relationship Specialty Start Date End Date George Hayden MD [address] [place] [address] PCP - General Family Medicine 01/01/24 George Hayden MD [address] [place] [address] PCP - Devoted 05/28/24 Jyoti Wiggins NP [address] [place] [address] Nurse Practitioner Family Medicine 01/01/24 Tanna Rodríguez MA [address] [place] [address] Family Medicine 04/07/24 Med Care Manager Relationship Specialty Start Date End Date George Hayden MD [address] [place] [address] PCP - General Family Medicine 01/01/24 Jyoti Wiggins NP [address] [place] [address] Nurse Practitioner Family Medicine 01/01/24 Tanna Rodríguez [place] [address] [place] [address] Family Medicine 04/07/24 Med Care Manager Relationship Specialty Start Date End Date George Hayden MD [address] [place] [address] PCP - General Family Medicine 01/01/24 Jyoti Wiggins NP [address] [place] [address] Nurse Practitioner [facility] Medicine 01/01/24 Tanna Rodríguez MA [address] [place] [address] Family [facility] 04/07/24 Med Care Manager Relationship Specialty Start Date End Date George Hayden MD [address] [place] [address] PCP - General Family Medicine 01/01/24 Jyoti Wiggins, OANH [address] [place] [address] Nurse Practitioner Family Medicine 01/01/24 Tanna Rodríguez GA [address] [place] [address] Family Medicine 04/07/24 Med Care Manager Relationship Specialty Start Date End Date George Hayden MD [address] [place] [address] PCP - General Family Medicine 12/08/24 Reason for Visit (unrecogniz ed section and content) Reason Comments Hospital Follow-up Reason Comments Diabetes NEW Reason Comments Med Change Request Reason Onset Date Comments Med Refill 04/29/2024 Reason Onset Date Comments Med Refill 05/05/2024 Reason Comments Follow-up DEVOTED [facility]ES [employer] FOR HER. WANTED TO TALK WITH YOU PRIOR TO TAKING IT. PT IS GETTING IT FREE. Reason Comments Follow-up Specialty Diagnoses / Procedures Referred By Contac t Referred To Contact Endocrinology Diagnoses Type 2 diabetes mellitus with diabetic neuropathy, with long-term current use of insulin ([facility]) Procedures LA OFFICE/OUTPATIENT NEW HIGH MDM 60 MINUTES Jyoti Wiggins, OANH [address] [place] [address] Phone: tel: fax: Jhoana Pierre MD [address] [place] [address] Phone: tel: fax: Referral ID Status Reason Start Date Expiration Date V isits Requested Visits Authorized [id number] Closed Specialty Services Required 01/14/2024 07/12/2024 1 1 Reason Comments Port/VAD Care Port draw Reason Onset Date Comments reschd 06/22/23 appt 06/20/2023 Reason Comments Follow-up Patient presents for follow up states right hand is numb Reason Comments Shortness of Breath Specialty Diagnoses / Procedures Referred By Contac t Referred To Contact Diagnoses SOB (shortness of breath) Pleural effusion Hypoxia NSVT (nonsustained ventricular tachycardia) ([facility]) Yousuf Garcia MD [address] [facility] , [facility] [address] [place] [address] Referral ID Status Reason Start Date Expiration Date Visits Re quested Visits Authorized [id number] 1 1 Reason Comments Breast Cancer Follow-up Specialty Diagnoses / Procedures Referred By Contac t Referred To Contact Breast Surgery Diagnoses Port-A-Cath in place Dean Gunter MD [address] [place] [address] [facility] [address] [place] [address] [address] [place] [address] Referral ID Status Reason Start Date Expiration Date V isits Requested Visits Authorized [id number] Pending Review 09/20/2023 09/19/2024 1 1 Reason Comments Port/VAD Care Port Flush Reason Onset Date Comments BOTOX INJECTIONS 07/06/2023 Reason Comments New Patient Patient presents for peripheral polyneuropathy. Patient is having right hand numbness, legs and feet are numb. Reason Onset Date Comments emg order fax 07/10/2023 Reason Onset Date Comments [facility] APPROVAL BOTOX 11/19/2023 Reason Comments Med Refill Reason Comments Port/VAD Care Port flush Reason Onset Date Comments need office notes 08/15/2023 Reason Comments Follow-up Patient presents for follow up, no concerns. Reason Onset Date Comments Botulinum Toxin Injection 08/12/2024 Reason Comments Follow-up Patient is here toda y for follow up on dx; Peripheral polyneuropathy Reason Onset Date Comments Med Records 09/12/2024 Reason Onset Date Comments Med Refill 09/15/2024 Reason Comments Follow-up 3 msob Reason Onset Date Comments Med Refill 12/01/2024 Reason Onset Date Comments directions 12/05/2024 Reason Comments Follow-up Patient is here toda y for follow up on dx: Peripheral polyneuropathy Reason Comments Shortness of Breath Specialty Diagnoses / Procedures Referred By Jaye hunter Referred To Contact Diagnoses Hypokalemia Hypomagnesemia Dyspnea Pleural effusion Exertional dyspnea Hypoxia COPD exacerbation ([facility]) Acute on chronic congestive heart failure, unspecified heart failure type ([facility]) Danie Chavez MD [address], [facility] [address] [place] [address] Phone: tel: fax: Referral ID Status Reason Start Date Expiration Date Visits Re quested Visits Authorized [id number] 1 1 Reason Comments Follow-up Hospital f/up breath ing issues Reason Comments Follow-up Hospital f/upmobilit y Reason Onset Date Comments [facility] Paperwork 01/27/2025 Goals (unrecognized section and content) Goals may be documented in a n alternate section Scheduled Active and Recently Administ ered Medications (unrecognized section and content) Medication Order 06/23/2023 06/24/2023 06/25/2023 aspirin EC tablet 81 mg 81 mg, oral, Daily, First dose on Sun06/22/23 at 0900, Do not crush or chew. 1000 (Given - Provider: Dulce Reina RN) 0817 (Given - Provider: Dulce Reina RN) 0933 (Given - Provider: Ofelia Dobson, RN) atorvastatin (LIPITOR) tablet 80 mg 80 mg, oral, Daily, First dose on Sun06/22/23 at 0900, Look-alike/sound-alike medication - verify indication for use. 1000 (Given - Provider: Dulce Reina RN) 0817 (Given - Provider: Dulce Reina RN) 0933 (Given - Provider: Ofelia Dobson, RN) carvediloL (COREG) tablet 12.5 mg 12.5 mg, oral, Daily, First dose on Sun06/22/23 at 0900, Give with meal or snack. Look-alike/sound-alike medication - verify indication for use. 1000 (Given - Provider: Dulce Reina RN) 0818 (Given - Provider: Dulce Reina RN) 0933 (Given - Provider: Ofelia Dobson, RN) enoxaparin (LOVENOX) syringe 30 mg 30 mg, subcutaneous, Daily, First dose on Sun06/22/23 at 0600, Look-alike/sound-alike medication - verify indication for use. 0504 (Given - Provider: So Hammond RN) 0453 (Given - Provider: So Hammond RN)0600 (Canceled Entry - Provider: So Hammond RN) 0503 (Given - Provider: So Hammond RN) furosemide (LASIX) injection 40 mg (CANCELED) 40 mg, intravenous, Every 12 hours scheduled, First dose (after last modification) on Sun06/23/23 at 0600, Look-alike/sound-alike medication - verify indication for use. IVP rate = 20 mg/min 0504 (Given - Provider: So Hammond RN)1800 (Given - Provider: Dulce Reina RN) 0454 (Given - Provider: So Hammond RN)0600 (Canceled Entry - Provider: So Hammond RN) insulin glargine (LANTUS, SEMGLEE) injection pen 35 Units 35 Units, subcutaneous, Daily, First dose on Sun06/22/23 at 0900, Look-alike/sound-alike medication - verify indication for use. Prime with 2 units of insulin prior to administration. Basal (long acting) insulin for subcutaneous administration only. Do not mix with any other insulin. Pre-filled pens stable 28 days at room temperature. 1002 (Given - Provider: Dulce Reina RN) 0948 (Given - Provider: Dulce Reina RN) 0935 (Given - Provider: Ofelia Dobson, RN) levothyroxine (SYNTHROID, LEVOTHROID) tablet 50 mcg 50 mcg, oral, Daily, First dose on Sun06/22/23 at 0600, Look-alike/sound-alike medication. Verify indication for use Administer on empty stomach at least ONE hour before or TWO hours after food Enteral Feeding: For 7 days or less of tube feeding- do NOT hold tube feedings, after 7 days- hold tube feedings ONE hour before and ONE hour after administration DOES NOT APPLY TO NEONATES Monitor thyroid function tests weekly 0505 (Given - Provider: So Hammond RN) 0453 (Given - Provider: So Hammond RN)0600 (Canceled Entry - Provider: So Hammond RN) 0503 (Given - Provider: So Hammond RN) losartan (COZAAR) tablet 25 mg 25 mg, oral, Daily, First dose on Sun06/22/23 at 0900, Look-alike/sound-alike medication - verify indication for use. 1001 (Given - Provider: Dulce Reina RN) 0817 (Given - Provider: Dulce Reina RN) 0935 (Given - Provider: Ofelia Dobson, SHABNAM) pantoprazole (PROTONIX) EC tablet 40 mg 40 mg, oral, Every morning before breakfast, First dose on Sun06/22/23 at 0700, Look-alike/sound-alike medication - verify indication for use. If patient is receiving enteral feeding, consider alternative PPI or continue IV pantoprazole until the delayed-release tablet can be taken orally, Indication: GERD 0504 (Given - Provider: So Hammond RN) 0453 (Given - Provider: So Hammond RN)0600 (Canceled Entry - Provider: So Hammond RN) 0503 (Given - Provider: So Hammond RN) pregabalin (LYRICA) capsule 150 mg 150 mg, oral, 2 times daily, First dose on Sun06/22/23 at 0200, Look-alike/sound-alike medication. Verify indication for use 1000 (Given - Provider: Dulce Reina RN)2046 (Given - Provider: So Hammond RN) 0817 (Given - Provider: Dulce Reina RN)204 (Given - Provider: So Hammond RN) 0933 (Given - Provider: Ofelia Dobson RN) rOPINIRole (REQUIP) tablet 5 mg 5 mg, oral, 3 times daily, First dose on Sun06/22/23 at 0200, Look-alike/sound-alike medication - verify indication for use. 0505 (Given - Provider: So Hammond RN)1313 (Given - Provider: Dulce Reina RN)2046 (Given - Provider: So Hammond RN) 0452 (Given - Provider: So Hammond RN)0600 (Canceled Entry - Provider: So Hammond RN)1456 (Given - Provider: Dulce Reina RN)2044 (Given - Provider: So Hammond RN) 0503 (Given - Provider: So Hammond RN)1544 (Given - Provider: Mariella Rodas RN) sodium chloride 0.45 % bolus (COMPLETED) 500 mL, intravenous, at 250 mL/hr, Administer over 2 Hours, Once, On Sun06/24/23 at 1245, For 1 dose 1241 (New Bag - Provider: Dulce Reina RN)1441 (Stop Bag - Provider: Dulce Reina RN) sodium chloride 0.9 % flush 3 mL 3 mL, intravenous, Every 12 hours scheduled, First dose on Sun06/22/23 at 0100 1000 (Given - Provider: Dulce Reina RN)2046 (Given - Provider: So Hammond RN) 0818 (Given - Provider: Dulce Reina RN)204 (Given - Provider: So Hammond RN) 0933 (Given - Provider: Ofelia Dobson RN) PRN Medication Order 06/23/2023 06/24/2023 06/25/2023 acetaminophen (TYLENOL) tablet 650 mg 650 mg, oral, Every 4 hours PRN, headaches, mild pain - pain scale 1-3, Temperature greater than 38.3 C, Starting on Sun06/22/23 at 0054, [Warning: Total Acetaminophen not to exceed more than 4 grams (4000 mg) in 24 hours] 0820 (Given - Provider: Dulce Reina RN) alum-mag hydroxide-simeth (MAALOX) 200-200-20 mg/5 mL suspension 30 mL 30 mL, oral, 4 times daily after meals and at bedtime as needed, dyspepsia, Starting on Sun06/22/23 at 0054, Look-alike/sound-alike medication - verify indication for use. Shake well., Indications: dyspepsia dextrose (GLUTOSE) 40 % gel 15 g 15 g, oral, As needed, low blood sugar, blood glucose less than 70 mg/dL, Starting on Sun06/22/23 at 0054, If patient conscious and taking PO. If blood glucose is not greater than 70 mg/dL after initial treatment, repeat treatment. dextrose 5 % (D5W) infusion 100 mL/hr, intravenous, Continuous PRN, blood glucose less than 70 mg/dL, Starting on Sun06/22/23 at 0054, Use immediately following dextrose 50% or glucagon treatment for patients who are unconscious or NPO. Contact prescriber for additional orders. If blood glucose is not greater than 70 mg/dL after initial treatment, repeat treatment. dextrose 50 % in water (D50W) 50% solution 25 mL 25 mL, intravenous, As needed, low blood sugar, blood glucose less than 70 mg/dL and unconscious or NPO with IV access, Starting on Sun06/22/23 at 0054, Push over 1-3 minutes STAT. If conscious and not NPO, immediately follow with meal tray or high protein (7 grams) snack if tray not available. If NPO, initiate 5% dextrose in water at 100 mL/hr and contact prescriber for additional orders. If blood glucose is not greater than 70 mg/dL after initial treatment, repeat treatment. VESICANT (RED) Warning: HYPERTONIC solution. glucagon HCL injection 1 mg 1 mg, intramuscular, As needed, low blood sugar, blood glucose less than 70 mg/dL and unconscious or NPO without IV access., Starting on Sun06/22/23 at 0054, If conscious and not NPO, immediately follow with meal tray or high protein (7Grams) snack if tray not available. If NPO, initiate IV 5% Dextrose/Water at 100 mL/hr and contact prescriber for additional orders. If blood glucose is not greater than 70 mg/dL after initial treatment, repeat treatment. magnesium sulfate IVPB 2000 mg/50 mL in iso-osmotic water (40 mg/mL premix) 2,000 mg, intravenous, at 25 mL/hr, Administer over 120 Minutes, As needed, Magnesium level 1.7 to 1.9 mg/dL, or Ionized Magnesium level 0.45 to 0.5 mmol/L., Starting on Sun06/22/23 at 0054, Recheck magnesium level 4 hours after infusion complete. With each magnesium result continue the replacement orders as needed. 1543 (New Bag - Provider: Dulce Reina RN)1743 (Stop Bag - Provider: Dulce Reina RN) magnesium sulfate IVPB 4000 mg/100 mL in iso-osmotic water (40 mg/mL premix) 4,000 mg, intravenous, at 25 mL/hr, Administer over 240 Minutes, As needed, Magnesium level 1.6 mg/dL or less, or Ionized Magnesium level 0.44 mmol/L or less, Starting on Sun06/22/23 at 0054, Recheck magnesium level 4 hours after infusion complete. With each magnesium result continue the replacement orders as needed. ondansetron (PF) (ZOFRAN) injection 4 mg 4 mg, intravenous, Every 4 hours PRN, nausea, vomiting, Starting on Sun06/22/23 at 0054, Administer over 2-5 minutes. potassium chloride (K-TAB,KLOR-CON) CR tablet 30-50 mEq(Linked Group 1) 30-50 mEq, oral, As needed, potassium supplementation, Starting on Sun06/22/23 at 0054, Progress to oral potassium replacement when patient tolerating oral intake. If dose administered, recheck potassium level 4 hours after last dose. For potassium level 3.4 to 3.8 mmol/L and GFR 30 mL/min or greater=30 mEq. For potassium level 3.1 to 3.3 mmol/L and GFR 30 mL/min or greater=40 mEq. For potassium level 3 mmol/L or less and GFR 30 mL/min or greater=50 mEq. Do not crush or chew. 1313 (Given - Provider: Dulce Reina, SHABNAM) 2043 (Given - Provider: So Hammond, RN) potassium chloride (KAYCIEL) 20 mEq/15 mL solution 30-50 mEq(Linked Group 1) 30-50 mEq, oral, As needed, potassium supplementation, Starting on Sun06/22/23 at 0054, Progress to oral potassium replacement when patient tolerating oral intake. If dose administered, recheck potassium level 4 hours after last dose. For potassium level 3.4 to 3.8 mmol/L and GFR 30 mL/min or greater=30 mEq. For potassium level 3.1 to 3.3 mmol/L and GFR 30 mL/min or greater=40 mEq. For potassium level 3 mmol/L or less and GFR 30 mL/min or greater=50 mEq. Must dilute before use - Mix in 3-8 ounces of water or juice before administration When administering in feeding tube, flush before and after per policy and monitor potassium levels 1313 (See Alternative - Provider: Dulce Reina, SHABNAM) 2043 (See Alternative - Provider: So Hammond, SHABNAM) sennosides-docusate sodium (SENOKOT-S) 8.6-50 mg 1 tablet 1 tablet, oral, Every 12 hours PRN, constipation, Starting on Sun06/22/23 at 0054 sodium chloride 0.9 % flush 3 mL 3 mL, intravenous, As needed, line care, before and after each intermittent use, Starting on Sun06/22/23 at 0054 sodium chloride 0.9 % flush bag 25 mL, intravenous, at 100 mL/hr, Administer over 15 Minutes, As needed, line care, line care after IVPB administration, Starting on Sun06/22/23 at 0054 sodium chloride 0.9 % infusion 20 mL/hr, intravenous, Continuous PRN, to maintain patency of lines, Starting on Sun06/22/23 at 0054 Linked Groups Order Group 1: potassium chloride (K-TAB,KLOR-CON) CR tablet 30-50 mEqJump to med 30-50 mEq, oral, As needed, potassium supplementation, Starting on Sun06/22/23 at 0054, Progress to oral potassium replacement when patient tolerating oral intake. If dose administered, recheck potassium level 4 hours after last dose. For potassium level 3.4 to 3.8 mmol/L and GFR 30 mL/min or greater=30 mEq. For potassium level 3.1 to 3.3 mmol/L and GFR 30 mL/min or greater=40 mEq. For potassium level 3 mmol/L or less and GFR 30 mL/min or greater=50 mEq. Do not crush or chew. Or potassium chloride (KAYCIEL) 20 mEq/15 mL solution 30-50 mEqJump to med 30-50 mEq, oral, As needed, potassium supplementation, Starting on Sun06/22/23 at 0054, Progress to oral potassium replacement when patient tolerating oral intake. If dose administered, recheck potassium level 4 hours after last dose. For potassium level 3.4 to 3.8 mmol/L and GFR 30 mL/min or greater=30 mEq. For potassium level 3.1 to 3.3 mmol/L and GFR 30 mL/min or greater=40 mEq. For potassium level 3 mmol/L or less and GFR 30 mL/min or greater=50 mEq. Must dilute before use - Mix in 3-8 ounces of water or juice before administration When administering in feeding tube, flush before and after per policy and monitor potassium levels Scheduled Medication Order 12/06/2024 12/07/2024 12/08/2024 alum-mag hydroxide-simeth (MAALOX) 200-200-20 mg/5 mL suspension 30 mL (COMPLETED) 30 mL, oral, Once, On Sun12/08/24 at 0900, For 1 dose, Look-alike/sound-alike medication - verify indication for use. Shake well. 0904 (Given - Provider: Johanny Muhammad, SHABNAM) aspirin EC tablet 81 mg 81 mg, oral, Daily, First dose on 12/07/24 at 0930, Do not crush or chew. 0930 (Given - Provider: Rosa Colindres, SHABNAM) 0900 (Hold - Provider: Quyen Alba RN - Reason: Other - Comment: possible IR today) atorvastatin (LIPITOR) tablet 40 mg 40 mg, oral, Daily, First dose on 12/07/24 at 0930, Look-alike/sound-alike medication - verify indication for use. 09 (Given - Provider: Rosa Colindres RN) 933 (Given - Provider: Johanny Muhammad, SHABNAM) azithromycin (ZITHROMAX) 500 mg in sodium chloride 0.9 % 250 mL IVPB W/ADAPTER (COMPLETED) 500 mg, intravenous, at 250 mL/hr, Administer over 60 Minutes, Once, On 12/06/24 at 2225, For 1 dose, For Vial-2-Bag: Attach bag and vial to adapter - Use immediately after activating; dissolve drug prior to administration., Indication: Acute COPD exacerbation 0031 (New Bag - Provider: Alice Lilly, SHABNAM)013 (Stop Bag - Provider: Alice Lilly RN) doxycycline (VIBRAMYCIN) capsule 100 mg 100 mg, oral, 2 times daily, First dose on 12/07/24 at 0930, For 5 days, Indication: COPD Exacerbation 929 (Given - Provider: Rosa Colindres RN)2113 (Given - Provider: Quyen Alba, SHABNAM) 933 (Given - Provider: Johanny Muhammad, SHABNAM)2031 (Given - Provider: Quyen Alba, SHABNAM) DULoxetine (CYMBALTA) DR capsule 20 mg (CANCELED) 20 mg, oral, Daily, First dose on 12/07/24 at 0930, Look-alike/sound-alike medication - verify indication for use. Swallow whole-do not crush or chew. Although the solid tire tuber machine operator does not recommend opening the capsule, the contents of capsule may be sprinkled on applesauce or in apple juice and swallowed (without chewing) immediately; do not sprinkle contents on chocolate pudding. 0930 (Given - Provider: Rosa Colindres, SHABNAM) 0935 (Given - Provider: Johanny Muhammad RN) furosemide (LASIX) injection 20 mg (COMPLETED) 20 mg, intravenous, Once, On 12/07/24 at 0930, For 1 dose, Look-alike/sound-alike medication - verify indication for use. IVP rate = 20 mg/min 0930 (Given - Provider: Rosa Colindres RN) furosemide (LASIX) injection 20 mg (CANCELED) 20 mg, intravenous, Every 12 hours, First dose (after last reorder) on Sun12/07/24 at 2100, Hold for sbp<100 Look-alike/sound-alike medication - verify indication for use. IVP rate = 20 mg/min 2115 (Given - Provider: Quyen Alba, SHABNAM) 0821 (Given - Provider: Johanny Muhammad, SHABNAM) furosemide (LASIX) injection 40 mg (COMPLETED) 40 mg, intravenous, Once, On Sun12/06/24 at 2225, For 1 dose, Look-alike/sound-alike medication - verify indication for use. IVP rate = 20 mg/min 2228 (Given - Provider: Hawk Oneil RN) furosemide (LASIX) tablet 20 mg 20 mg, oral, Daily, First dose on Sun12/09/24 at 0900, Look-alike/sound-alike medication - verify indication for use. heparin (porcine) injection 5,000 Units (CANCELED) 5,000 Units, subcutaneous, Every 8 hours scheduled, First dose on 12/06/24 at 2250, Notify prescriber if INR greater than 1.9, hemoglobin less than 10 mg/dL, aPTT greater than 40 seconds, and/or platelet count less than 100,000/mm Look-alike/sound-alike medication - verify indication for use. Observe for bleeding. 2313 (Given - Provider: Hawk Oneil, SHABNAM) 0504 (Given - Provider: Alice Lilly, SHABNAM)1500 (Given - Provider: Rosa Colindres RN)2115 (Given - Provider: Quyen Alba, SHABNAM) 0520 (Given - Provider: Quyen Alba, SHABNAM)1400 (Hold - Provider: Johanny Muhammad, SHABNAM - Reason: Reassess at later date - Comment: Dr. Gomez) insulin glargine (LANTUS, SEMGLEE) injection pen 20 Units 20 Units, subcutaneous, Daily, First dose on Sun12/07/24 at 0930, Look-alike/sound-alike medication - verify indication for use. Prime with 2 units of insulin prior to administration. Basal (long acting) insulin for subcutaneous administration only. Do not mix with any other insulin. Pre-filled pens stable 28 days at room temperature. 0929 (Given - Provider: Rosa Colindres RN) 0837 (Given - Provider: Johanny Muhammad, RN) insulin lispro (HumaLOG) injection 2-10 Units 2-10 Units, subcutaneous, 3 times daily with meals, First dose on 12/07/24 at 0800, Daytime hyperglycemia dosing. For blood glucose 151-200 mg/dL, give 2 units. For blood glucose 201-250 mg/dL, give 4 units. For blood glucose 251-300 mg/dL, give 6 units. For blood glucose 301-350 mg/dL, give 8 units. For blood glucose 351-400 mg/dL, give 10 units. Give even if NPO or meals skipped. Do NOT give more often then every 4 hours when NPO. Notify prescriber if blood glucose greater than 400 mg/dL. Look-alike/sound-alike medication - verify indication for use. Prime with 2 units of insulin prior to administration. Prandial/supplemental Insulin. Pre-filled pens stable 28 days at room temperature. Insulin lispro should be administered within 15 minutes before or immediately after a meal. 0900 (Not Given - Provider: Rosa Colindres RN - Reason: Medication not available)1242 (Given - Provider: Rosa Colindres RN - Comment: [phone] (Given - Provider: Rosa Colindres RN - Comment: bs [phone]) 0830 (Given - Provider: Johanny Muhammad, SHABNAM)1216 (Given - Provider: Johanny Muhammad, RN)1805 (Given - Provider: Johanny Muhammad, SHABNAM) insulin lispro (HumaLOG) injection 2-8 Units 2-8 Units, subcutaneous, Nightly, First dose on 12/06/24 at 2250, Bedtime hyperglycemia dosing. For blood glucose 201-250 mg/dL, give 2 units. For blood glucose 251-300 mg/dL, give 4 units. For blood glucose 301-350 mg/dL, give 6 units. For blood glucose 351-400 mg/dL, give 8 units. Give even if NPO or meals skipped. Do NOT give more often then every 4 hours when NPO. Notify prescriber if blood glucose greater than 400 mg/dL. Look-alike/sound-alike medication - verify indication for use. Prime with 2 units of insulin prior to administration. Prandial/supplemental Insulin. Pre-filled pens stable 28 days at room temperature. Insulin lispro should be administered within 15 minutes before or immediately after a meal. 225 (Not Given - Provider: Hawk Oneil RN - Reason: Order parameters not met) 2131 (Given - Provider: Quyen Alba RN) 2036 (Given - Provider: Quyen Alba RN - Comment: [phone] (Canceled Entry - Provider: Quyen Alba RN) ipratropium-albuteroL (DUONEB) 0.5 mg-3 mg(2.5 mg base)/3 mL nebulizer solution 3 mL (COMPLETED) 3 mL, nebulization, Once, On 12/06/24 at 2105, For 1 dose, Implement INPATIENT/ED Bronchodilator Clinical Practice Guidelines? Yes 2141 (Given - Provider: Darlin Paz RCP) ipratropium-albuteroL (DUONEB) 0.5 mg-3 mg(2.5 mg base)/3 mL nebulizer solution 3 mL (COMPLETED) 3 mL, nebulization, Once, On 12/06/24 at 2105, For 1 dose, Implement INPATIENT/ED Bronchodilator Clinical Practice Guidelines? Yes 2131 (Given - Provider: Darlin Paz RCP) ipratropium-albuteroL (DUONEB) 0.5 mg-3 mg(2.5 mg base)/3 mL nebulizer solution 3 mL 3 mL, nebulization, Every 4 hours while awake, First dose (after last reorder) on 12/07/24 at 0000, Implement INPATIENT/ED Bronchodilator Clinical Practice Guidelines? Yes 2359 (Given - Provider: Darlin Paz RCP) 0836 (Given - Provider: Sussy Moe RCP - Comment: pt with PT/OT)1148 (Given - Provider: Sussy Moe RCP)1511 (Given - Provider: Sussy Moe RCP)2009 (Given - Provider: Freda Perez RCP) 0710 (Given - Provider: Maday Perez RCP)1110 (Given - Provider: Maday Perez RCP)1506 (Given - Provider: Maday Perez RCP)1859 (Given - Provider: Staci Koenig RCP) levothyroxine (SYNTHROID, LEVOTHROID) tablet 50 mcg 50 mcg, oral, Daily, First dose on 12/07/24 at 0930, Look-alike/sound-alike medication. Verify indication for use Administer on empty stomach at least ONE hour before or TWO hours after food Enteral Feeding: For 7 days or less of tube feeding- do NOT hold tube feedings, after 7 days- hold tube feedings ONE hour before and ONE hour after administration DOES NOT APPLY TO NEONATES Monitor thyroid function tests weekly 929 (Given - Provider: Rosa Colindres RN) 519 (Given - Provider: Quyen Alba RN) magnesium sulfate IVPB 2000 mg/50 mL in iso-osmotic water (40 mg/mL premix) (COMPLETED) 2,000 mg, intravenous, at 25 mL/hr, Administer over 120 Minutes, Once, On 12/06/24 at 2225, For 1 dose, Infuse each gram over 60 minutes. 224 (New Bag - Provider: Hawk Oneil RN)232 (Continue to Inpatient Floor - Provider: Hawk Oneil RN) 004 (Stop Bag - Provider: Alice Lilly RN) methylPREDNISolone sod suc(PF) (Solu-MEDROL) injection 125 mg (COMPLETED) 125 mg, intravenous, Once, On 12/06/24 at 2105, For 1 dose, May alter blood glucose or insulin requirements. Look-alike/sound-alike medication - verify indication for use. 2111 (Given - Provider: Hawk Oneil RN) methylPREDNISolone sod suc(PF) (Solu-MEDROL) injection 40 mg 40 mg, intravenous, Every 12 hours, First dose (after last reorder) on 12/07/24 at 0800, May alter blood glucose or insulin requirements. Look-alike/sound-alike medication - verify indication for use. 842 (Given - Provider: Rosa Colindres RN)2113 (Given - Provider: Quyen Alba RN) 821 (Given - Provider: Johanny Muhammad RN)2032 (Given - Provider: Quyen Alba RN) metoprolol tartrate (LOPRESSOR) tablet 12.5 mg 12.5 mg, oral, Daily, First dose on 12/07/25 at 0930, Hold for sbp<100 or hr<60 Look-alike/sound-alike medication - verify indication for use. 929 (Given - Provider: Rosa Colindres, RN) 933 (Given - Provider: Johanny Muhammad, RN) ondansetron (PF) (ZOFRAN) injection 4 mg (COMPLETED) 4 mg, intravenous, Once, On 12/06/24 at 2105, For 1 dose, Intravenous administration preferred to be given over 2-5 minutes. 2109 (Given - Provider: Hawk Oneil, RN) potassium chloride (KAYCIEL) 20 mEq/15 mL solution 40 mEq (COMPLETED) 40 mEq, oral, Once, On Sun12/06/24 at 2225, For 1 dose, Must dilute before use - Mix in 3-8 ounces of water or juice before administration When administering in feeding tube, flush before and after per policy and monitor potassium levels 2228 (Given - Provider: Hawk Oneil, RN) pregabalin (LYRICA) capsule 100 mg (CANCELED) 100 mg, oral, 2 times daily, First dose on Sun12/07/24 at 0930, Look-alike/sound-alike medication. Verify indication for use 929 (Given - Provider: Rosa Colindres, SHABNAM)2112 (Given - Provider: Quyen Alba, SHABNAM) 934 (Given - Provider: Johanny Muhammad, SHABNAM) pregabalin (LYRICA) capsule 75 mg 75 mg, oral, 2 times daily, First dose (after last modification) on Sun12/08/24 at 2100, Look-alike/sound-alike medication. Verify indication for use 2031 (Given - Provider: Quyen Alba, SHABNAM) primidone (MYSOLINE) tablet 50 mg (CANCELED) 50 mg, oral, 2 times daily, First dose on Sun12/07/24 at 0930 0930 (Given - Provider: Rosa Colindres, SHABNAM)2113 (Given - Provider: Quyen Alba, SHABNAM) 933 (Given - Provider: Johanny Muhammad, SHABNAM) primidone (MYSOLINE) tablet 50 mg 50 mg, oral, Nightly, First dose (after last modification) on Sun12/08/24 at 2100 2031 (Given - Provider: Quyen Alba, SHABNAM) rOPINIRole (REQUIP) tablet 10 mg (CANCELED) 10 mg, oral, Nightly, First dose on Sun12/07/24 at 2200, Look-alike/sound-alike medication - verify indication for use. 2112 (Given - Provider: Quyen Alba, SHABNAM) rOPINIRole (REQUIP) tablet 3 mg 3 mg, oral, Nightly, First dose (after last modification) on Sun12/08/24 at 2100, Look-alike/sound-alike medication - verify indication for use. 2032 (Given - Provider: Quyen Alba RN) rOPINIRole (REQUIP) tablet 3 mg 3 mg, oral, Daily, First dose (after last modification) on Sun12/09/24 at 0900, Look-alike/sound-alike medication - verify indication for use. rOPINIRole (REQUIP) tablet 5 mg (CANCELED) 5 mg, oral, Daily, First dose on Sun12/08/24 at 0900, Look-alike/sound-alike medication - verify indication for use. 0934 (Given - Provider: Johanny Muhammad RN) sodium chloride 0.9 % flush 3 mL 3 mL, intravenous, Every 12 hours scheduled, First dose on Sun12/06/24 at 2105 2112 (Given - Provider: Hawk Oneil RN) 0933 (Given - Provider: Rosa Colindres RN)2118 (Given - Provider: Quyen Alba, SHABNAM) 0836 (Given - Provider: Joahnny Muhammad RN)2035 (Given - Provider: Quyen Alba RN) PRN Medication Order 12/06/2024 12/07/2024 12/08/2024 acetaminophen (TYLENOL) tablet 650 mg 650 mg, oral, Every 4 hours PRN, temperature greater than 38 C, mild pain - pain scale 1-3, headaches, Starting on 12/06/24 at 2245, [Warning: Total Acetaminophen not to exceed more than 4 grams (4000 mg) in 24 hours] 1703 (Not Given - Provider: Johanny Muhammad RN - Reason: Other) dextrose (GLUTOSE) 40 % gel 15 g 15 g, oral, As needed, low blood sugar, blood glucose less than 70 mg/dL, Starting on 12/06/24 at 2245, If patient conscious and taking PO. If blood glucose is not greater than 70 mg/dL after initial treatment, repeat treatment. dextrose 50 % in water (D50W) 50% solution 25 mL 25 mL, intravenous, As needed, low blood sugar, blood glucose less than 70 mg/dL and unconscious or NPO with IV access, Starting on 12/06/24 at 2245, Push over 1-3 minutes STAT. If conscious and not NPO, immediately follow with meal tray or high protein (7 grams) snack if tray not available. If NPO, initiate 5% dextrose in water at 100 mL/hr and contact prescriber for additional orders. If blood glucose is not greater than 70 mg/dL after initial treatment, repeat treatment. VESICANT (RED) Warning: HYPERTONIC solution. glucagon HCL injection 1 mg 1 mg, intramuscular, As needed, low blood sugar, blood glucose less than 70 mg/dL and unconscious or NPO without IV access., Starting on 12/06/24 at 2245, If conscious and not NPO, immediately follow with meal tray or high protein (7Grams) snack if tray not available. If NPO, initiate IV 5% Dextrose/Water at 100 mL/hr and contact prescriber for additional orders. If blood glucose is not greater than 70 mg/dL after initial treatment, repeat treatment. magnesium sulfate IVPB 2000 mg/50 mL in iso-osmotic water (40 mg/mL premix) 2,000 mg, intravenous, at 25 mL/hr, Administer over 120 Minutes, As needed, Magnesium level 1.7 to 1.9 mg/dL, or Ionized Magnesium level 0.45 to 0.5 mmol/L., Starting on 12/06/24 at 2245, Recheck magnesium level 4 hours after infusion complete. With each magnesium result continue the replacement orders as needed. magnesium sulfate IVPB 4000 mg/100 mL in iso-osmotic water (40 mg/mL premix) 4,000 mg, intravenous, at 25 mL/hr, Administer over 240 Minutes, As needed, Magnesium level 1.6 mg/dL or less, or Ionized Magnesium level 0.44 mmol/L or less, Starting on 12/06/24 at 2245, Recheck magnesium level 4 hours after infusion complete. With each magnesium result continue the replacement orders as needed. midodrine (PROAMATINE) tablet 5 mg 5 mg, oral, 3 times daily PRN, SBP less than 90, Starting on Sun12/07/24 at 1212, Look-alike/sound-alike medication - verify indication for use. 1242 (Given - Provider: Rosa Colindres, RN)2328 (Given - Provider: Quyen Alba, SHABNAM) ondansetron ODT (ZOFRAN ODT) disintegrating tablet 4 mg 4 mg, buccal, Every 6 hours PRN, nausea, vomiting, Starting on 12/06/24 at 2245 perflutren lipid microspheres (DEFINITY) dilution injection 1.43 mg/10 mL 2 mL, intravenous, As needed, contrast, Starting on 12/08/24 at 1415, For 6 hours, Additional Imaging Orders, Dilute 1.3 mL of Definity with 8.7mL of 0.9% NaCl in 10 mL syringe Administer 2 mL perflutren (Definity) contrast if 2 contiguous segments of the LV are not well visualized. May repeat 2 mL dose until LV visualization is accomplished. Procedure total dose not to exceed 10 mL. 1420 (Given - Provid er: Azalea Amaro RDCS) potassium chloride (KAYCIEL) 20 mEq/15 mL solution 20-40 mEq(Linked Group 1) 20-40 mEq, oral, As needed, Potassium Supplementation, Starting on 12/06/24 at 2245, Progress to oral potassium replacement when patient tolerating oral intake. If dose administered, recheck potassium level 4 hours after last dose. For potassium level 3.4 to 3.8 mmol/L and GFR less than 30 mL/min or dialysis=20 mEq. For potassium level 3.1 to 3.3 mmol/L and GFR less than 30 mL/min or dialysis=30 mEq. For potassium level 3 mmol/L or less and GFR less than 30 mL/min or dialysis=40 mEq. Must dilute before use - Mix in 3-8 ounces of water or juice before administration When administering in feeding tube, flush before and after per policy and monitor potassium levels potassium chloride (KLOR-CON M 20) CR tablet 20-40 mEq(Linked Group 1) 20-40 mEq, oral, As needed, Potassium Supplementation, Starting on 12/06/24 at 2245, Progress to oral potassium replacement when patient tolerating oral intake. If dose administered, recheck potassium level 4 hours after last dose. For potassium level 3.4 to 3.8 mmol/L and GFR less than 30 mL/min or dialysis=20 mEq. For potassium level 3.1 to 3.3 mmol/L and GFR less than 30 mL/min or dialysis=30 mEq. For potassium level 3 mmol/L or less and GFR less than 30 mL/min or dialysis=40 mEq. Do not crush or chew. potassium chloride IVPB 10 mEq/100 mL in water (0.1 mEq/mL premix)(Linked Group 1) 10 mEq, intravenous, at 100 mL/hr, Administer over 60 Minutes, As needed, POTASSIUM REPLACEMENT, Starting on 12/06/24 at 2245, IV if unable to use oral/enteral with the current dosing strategies Potassium level 3 mmol/L or less administer Potassium Chloride 40 mEq Potassium level 3.1 to 3.3 mmol/L administer Potassium Chloride 30 mEq Potassium level 3.4 to 3.8 mmol/L administer Potassium Chloride 20 mEq Use central line when applicable. Recheck potassium level 1 hour after total IVPB infusion complete, With each potassium result continue the replacement orders as needed VESICANT (YELLOW) Infuse each 10 mEq over a minimum of 1 hour. sennosides-docusate sodium (SENOKOT-S) 8.6-50 mg 1 tablet 1 tablet, oral, Every 12 hours PRN, constipation, Starting on 12/06/24 at 2245 sodium chloride 0.9 % flush 10 mL 10 mL, intravenous, Once as needed, line care, for use for echo contrast only, Starting on 12/08/24 at 1415, For 6 hours, Additional Imaging Orders sodium chloride 0.9 % flush 3 mL 3 mL, intravenous, As needed, line care, before and after each intermittent use, Starting on 12/06/24 at 2059 sodium chloride 0.9 % infusion 10 mL/hr, intravenous, Continuous PRN, to maintain patency of lines, Starting on 12/06/24 at 2245 Linked Groups Order Group 1: potassium chloride (KLOR-CON M 20) CR tablet 20-40 mEqJump to med 20-40 mEq, oral, As needed, Potassium Supplementation, Starting on 12/06/24 at 2245, Progress to oral potassium replacement when patient tolerating oral intake. If dose administered, recheck potassium level 4 hours after last dose. For potassium level 3.4 to 3.8 mmol/L and GFR less than 30 mL/min or dialysis=20 mEq. For potassium level 3.1 to 3.3 mmol/L and GFR less than 30 mL/min or dialysis=30 mEq. For potassium level 3 mmol/L or less and GFR less than 30 mL/min or dialysis=40 mEq. Do not crush or chew. Or potassium chloride (KAYCIEL) 20 mEq/15 mL solution 20-40 mEqJump to med 20-40 mEq, oral, As needed, Potassium Supplementation, Starting on 12/06/24 at 2245, Progress to oral potassium replacement when patient tolerating oral intake. If dose administered, recheck potassium level 4 hours after last dose. For potassium level 3.4 to 3.8 mmol/L and GFR less than 30 mL/min or dialysis=20 mEq. For potassium level 3.1 to 3.3 mmol/L and GFR less than 30 mL/min or dialysis=30 mEq. For potassium level 3 mmol/L or less and GFR less than 30 mL/min or dialysis=40 mEq. Must dilute before use - Mix in 3-8 ounces of water or juice before administration When administering in feeding tube, flush before and after per policy and monitor potassium levels Or potassium chloride IVPB 10 mEq/100 mL in water (0.1 mEq/mL premix)Jump to med 10 mEq, intravenous, at 100 mL/hr, Administer over 60 Minutes, As needed, POTASSIUM REPLACEMENT, Starting on 12/06/24 at 2245, IV if unable to use oral/enteral with the current dosing strategies Potassium level 3 mmol/L or less administer Potassium Chloride 40 mEq Potassium level 3.1 to 3.3 mmol/L administer Potassium Chloride 30 mEq Potassium level 3.4 to 3.8 mmol/L administer Potassium Chloride 20 mEq Use central line when applicable. Recheck potassium level 1 hour after total IVPB infusion complete, With each potassium result continue the replacement orders as needed VESICANT (YELLOW) Infuse each 10 mEq over a minimum of 1 hour. FOR RECORDS PERTAINING TO PATIENTS WHO ARE [...] BE BASED ON THE PRIMARY CLINICAL RECORDS. [facility] [employer] [facility]. provides no warranty or guarantee of the accuracy or completeness of information in this document.
[2025-02-06 14:29] LABS: Anion Gap 10.5; Blood Urea Nitrogen 25.0 mg/dL (7.0-18.0); Calcium 8.8 mg/dL (8.5-10.1); Carbon Dioxide 33.1 mmol/L (21.0-32.0); Chloride 105 mmol/L (98-107); Estimated GFR (African America 40 (>=60 mL/min/1.73m^2); Estimated GFR (Non-African Ame 33 (>=60 mL/min/1.73m^2); Glucose 125 mg/dL (74-106); Potassium 3.6 mmol/L (3.5-5.1); Sodium 145 mmol/L (136-145)
== END 2025-02-06 12:29 | disposition home or self-care (01) ==
PROVIDERS: PCP Family Medicine
DX: I50.22 Chronic systolic (congestive) heart failure (principal)
CPT/HCPCS: 36415; 80048